=== PATIENT | male | born 1950 | race Caucasian/White ===

== ENCOUNTER 2018-10-14 12:41 | Emergency (ER) | payer MEDICARE ==
[2018-10-14 14:25] VITALS: BP 169/73
[2018-10-14] MEDS ORDERED: ASPIRIN 81 MG TABLET, CHEWABLE PO ONE (15:47)
--- NOTE | 2018-10-14 15:50 | ER Document Report ---
ED Medical Screen (RME) - General Chief Complaint: Other Stated Complaint: PACE MAKER ISSUES Time Seen by Provider: 10/14/18 15:38 Mode of Arrival: Ambulatory Information source: Patient Notes: 67-year-old male presented to ED for pacemaker monitoring bleeding and abnormal. He states he is not having any pain or shortness of breath. He has had heart attacks x2 coronary artery disease high blood pressure cholesterol, 3 neck fusions, 3 back fusions, bypass graft from aorta to the femoral, knee surgery cardiac cath and stents and a pacemaker and smokes a pack a day. 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 I have greeted and performed a rapid initial assessment of this patient. A comprehensive ED assessment and evaluation of the patient, analysis of test results and completion of medical decision making process will be conducted by an additional ED providers. Dictation of this chart was performed using voice recognition software; therefore, there may be some unintended grammatical errors. TRAVEL OUTSIDE OF THE [place] IN LAST 30 DAYS: Yes - Related Data Allergies/Adverse Reactions: No Known Allergies Allergy (Unverified 10/14/18 13:07) Past Medical History - Social History Frequency of alcohol use: None Drug Abuse: None - Past Medical History Cardiac Medical History: Reports: Hx Heart Attack, Hx Hypercholesterolemia, Hx Hypertension Renal/ Medical History: Denies: Hx Peritoneal Dialysis Past Surgical History: Reports: Hx Abdominal Surgery - hernia x2, Hx Cardiac Catheterization - CABG, Hx Cardiac Surgery - stent, pacemaker/defibulator placed, Hx Orthopedic Surgery - cervical fusions x3, back fusions, knee Physical Exam - Vital signs Vitals: Temp Pulse Resp BP Pulse Ox 97.3 F 60 22 H 169/73 H 96 10/14/18 14:23 10/14/18 14:23 10/14/18 14:23 10/14/18 14:23 10/14/18 14:23 Course - Vital Signs Vital signs: Temp Pulse Resp BP Pulse Ox 97.3 F 60 22 H 169/73 H 96 10/14/18 14:23 10/14/18 14:23 10/14/18 14:23 10/14/18 14:23 10/14/18 14:23
--- NOTE | 2018-10-14 16:14 | RADIOLOGY REPORT (SQ) ---
EXAM DESCRIPTION: CHEST 2 VIEWS COMPLETED DATE/TIME: 10/14/2018 4:04 pm REASON FOR STUDY: pace maker montitor abnormal COMPARISON: None. TECHNIQUE: Single frontal radiographic view of the chest acquired. NUMBER OF VIEWS: One view. LIMITATIONS: None. FINDINGS: LUNGS AND PLEURA: No pneumothorax. Basilar interstitial thickening. No consolidation or significant pleural effusion. MEDIASTINUM AND HILAR STRUCTURES: Age-appropriate contour. HEART AND VASCULAR STRUCTURES: Normal size. BONES: No acute findings. HARDWARE: Cardiac defibrillator. OTHER: No other significant finding. IMPRESSION: Basilar interstitial thickening, possible early interstitial edema. TECHNICAL DOCUMENTATION: JOB ID: [id number] 2010 [employer]- All Rights Reserved Reading location - IP/workstation name: [employer]
[2018-10-14 16:49] LABS: APPEARANCE,URINE CLEAR; BILIRUBIN,URINE NEGATIVE (NEGATIVE); COLOR,URINE YELLOW; GLUCOSE, URINE NEGATIVE (NEGATIVE); KETONES,URINE NEGATIVE (NEGATIVE); LEUKOCYTE ESTERASE,URINE NEGATIVE (NEGATIVE); NITRITE,URINE NEGATIVE (NEGATIVE); PROTEIN,URINE 30 mg/dL (NEGATIVE); URINE SPECIFIC GRAVITY 1.015; UROBILINOGEN,URINE NEGATIVE mg/dL (<2.0)
--- NOTE | 2018-10-15 18:30 | EKG REPORT ---
SEVERITY:- ABNORMAL ECG - ATRIAL-PACED RHYTHM LVH WITH IVCD AND SECONDARY REPOL ABNRM BORDERLINE INFERIOR Q WAVES : Confirmed by: Brennan Marc MD 15-Oct-2018 18:30:12
== END 2018-10-14 18:16 | disposition left against medical advice (07) ==
LOC: ER 12:41
DX: Z45.018 Encounter for adjustment and management of other part of cardiac pacemaker (principal); I25.10 Atherosclerotic heart disease of native coronary artery without angina pectoris; I10 Essential (primary) hypertension; I25.2 Old myocardial infarction; F17.200 Nicotine dependence, unspecified, uncomplicated; Z95.1 Presence of aortocoronary bypass graft; Z95.5 Presence of coronary angioplasty implant and graft; Z53.20 Procedure and treatment not carried out because of patient's decision for unspecified reasons
CPT/HCPCS: 93005; 99281; 81001; 71046; 93010; A9270

== ENCOUNTER 2018-10-15 06:53 | Emergency (ER) | payer OTHER, MEDICARE ==
[2018-10-15 09:18] LABS: ABSOLUTE EOSINOPHILS # (AUTO) 0.3 10^3/uL (0.0-0.6); ABSOLUTE LYMPHOCYTES (AUTO) 1.1 10^3/uL (0.5-4.7); ABSOLUTE MONOCYTES (AUTO) 0.5 10^3/uL (0.1-1.4); ABSOLUTE NEUT (AUTO) 4.9 10^3/uL (1.7-8.2); BASOPHILS % (AUTO) 0.5 % (0-2); EOSINOPHILS % (AUTO) 3.8 % (0-6); LYMPHOCYTES % (AUTO) 15.6 % (13-45); MEAN CORPUSCULAR HEMOGLOBIN 33.8 pg (27.0-33.4); MEAN CORPUSCULAR HGB CONC 34.3 g/dL (32.0-36.0); MEAN CORPUSCULAR VOLUME 99 fl (80-97); RED BLOOD COUNT 3.24 10^6/uL (4.35-5.55); RED CELL DISTRIBUTION WIDTH 14.6 % (11.5-14.0); SEGMENTED NEUTROPHILS % (AUTO) 73.1 % (42-78); TOTAL CELLS COUNTED % (AUTO) 100 %; WHITE BLOOD COUNT 6.7 10^3/uL (4.0-10.5)
[2018-10-15 09:39] LABS: ALANINE AMINOTRANSFERASE 25 U/L (21-72); ALBUMIN 4.1 g/dL (3.5-5.0); ALKALINE PHOSPHATASE 98 U/L (38-126); ANION GAP 8 (5-19); ASPARTATE AMINO TRANSFERASE 29 U/L (17-59); BILIRUBIN,DIRECT 0.3 mg/dL (0.0-0.4); BILIRUBIN,TOTAL 0.5 mg/dL (0.2-1.3); BLOOD UREA NITROGEN 28 mg/dL (7-20); CALCIUM 9.2 mg/dL (8.4-10.2); CARBON DIOXIDE 21 mmol/L (22-30); CHLORIDE 113 mmol/L (98-107); GLUCOSE 82 mg/dL (75-110); POTASSIUM 4.9 mmol/L (3.6-5.0); SODIUM 142.2 mmol/L (137-145); TOTAL PROTEIN 7.1 g/dL (6.3-8.2)
[2018-10-15 09:49] LABS: PLATELET COUNT 98 10^3/uL (150-450)
--- NOTE | 2018-10-15 11:16 | ER Document Report ---
ED General - General Chief Complaint: Chest Pain Stated Complaint: PACE MAKER ISSUE Time Seen by Provider: 10/15/18 08:29 Primary Care Provider: [facility] [Provider Group] - Follow up in 3-5 days KWAME HERRERA MD [ACTIVE STAFF] - Follow up in 3-5 days Notes: Patient is a 67-year-old male with history of CHF, CAD and hypertension that presents to the emergency department for chief complaint of possible pacemaker malfunction. Patient states that he places pacemaker on the monitor, at home and he states that it started blinking and told him to go see a doctor. He had his pacemaker placed in 2017, it is an AICD as well, it was performed in [place]. It is a [employer]. He denies having any chest pain, shortness of breath, difficulty breathing, nausea, vomiting, diaphoresis. He denies having any lightheadedness, dizziness or passing out episodes. He also denies any recent fevers, chills, night sweats, cough, abdominal pain, dysuria or hematuria. No other complaints at this time. Otherwise feels well. Past Medical History: CHF, CAD, hypertension Past Surgical History: AICD, PCI with stenting Social History: Admits to smoking cigarettes, denies ETOH, or drug use. Family History: Reviewed and noncontributory for presenting illness Allergies: Reviewed, see documented allergy list. REVIEW OF SYSTEMS: Other than noted above, the 12 point review of systems was reviewed with the patient and were negative, all pertinent findings are included in the HPI. PHYSICAL EXAMINATION: Vital signs reviewed, nursing noted reviewed. GENERAL: Well-appearing, well-nourished and in no acute distress. HEAD: Atraumatic, normocephalic. EYES: Eyes appear normal, extraocular movements intact, sclera anicteric, conjunctiva are normal. ENT: nares patent, oropharynx clear without exudates. Moist mucous membranes. NECK: Normal range of motion, supple without lymphadenopathy LUNGS: Breath sounds clear to auscultation bilaterally and equal. No wheezes rales or rhonchi. HEART: Regular rate and rhythm without murmurs ABDOMEN: Soft, nontender, normoactive bowel sounds. No rebound, guarding, or rigidity. No masses appreciated. EXTREMITIES: Nontender, good range of motion, no pitting or edema. NEUROLOGICAL: No focal neurological deficits. Moves all extremities spontaneo usly Motor and sensory grossly intact on exam. PSYCH: Normal mood, normal affect. SKIN: Warm, Dry, normal turgor, no rashes or lesions noted on exposed skin TRAVEL OUTSIDE OF THE [place] IN LAST 30 DAYS: Yes - Related Data Allergies/Adverse Reactions: No Known Allergies Allergy (Unverified 10/14/18 13:07) Past Medical History - Social History Smoking Status: Current Every Day Smoker Family History: Reviewed & Not Pertinent Patient has suicidal ideation: No Patient has homicidal ideation: No - Past Medical History Cardiac Medical History: Reports: Hx Heart Attack, Hx Hypercholesterolemia, Hx Hypertension Renal/ Medical History: Denies: Hx Peritoneal Dialysis Past Surgical History: Reports: Hx Abdominal Surgery - hernia x2, Hx Cardiac Catheterization - CABG, Hx Cardiac Surgery - stent, pacemaker/defibulator placed, Hx Orthopedic Surgery - cervical fusions x3, back fusions, knee Physical Exam - Vital signs Vitals: Temp Pulse Resp BP Pulse Ox 97.5 F 59 L 16 162/77 H 98 10/15/18 07:26 10/15/18 07:26 10/15/18 07:26 10/15/18 07:26 10/15/18 07:26 Course - Re-evaluation Re-evalutation: Patient seen and examined vital signs reviewed. Laboratory data ordered as appropriate for the patient's presenting symptoms and complaint, with consideration of any critical or life threatening conditions that may be associated with their obtained history and exam as noted above. Results were reviewed when available and demonstrated mild anemia, and creatinine of 1.6, patient states he does have a mild degree of chronic kidney disease and it sounds like this is around his baseline. His troponin was negative, EKG did not demonstrate acute ischemic pattern, his pacemaker interrogation was performed, and reviewed with the [employer] quality systems technician, and there is no concerning findings on his interrogation. I discussed these res ults with the patient, and advise following up with a materials technician in the [facility], and if he developed any concerning symptoms to return to the emergency department. The patient was re-evaluated and was stable, asymptomatic Evaluation was most consistent with pacemaker interrogation and possible complication Results were discussed with the patient at this point, after careful consideration I feel that that patient can be discharged from the emergency department, the patient was educated treatments and reasons to return to the emergency department based on their presumed diagnosis as noted above, they were advised to followup with a primary care physician in 2-3 days. Patient was agreeable to plan of care. *Note is created using voice recognition software and may contain spelling, syntax or grammatical errors. Laboratory 10/15/18 10/15/18 10/15/18 09:00 09:00 09:00 WBC 6.7 RBC 3.24 L Hgb 11.0 L Hct 32.0 L MCV 99 H MCH 33.8 H MCHC 34.3 RDW 14.6 H Plt Count 98 L Seg Neutrophils % 73.1 Lymphocytes % 15.6 Monocytes % 7.0 Eosinophils % 3.8 Basophils % 0.5 Absolute Neutrophils 4.9 Absolute Lymphocytes 1.1 Absolute Monocytes 0.5 Absolute Eosinophils 0.3 Absolute Basophils 0.0 Sodium 142.2 Potassium 4.9 Chloride 113 H Carbon Dioxide 21 L Anion Gap 8 BUN 28 H Creatinine 1.63 H Est GFR ( Amer) 51 L Est GFR (Non-Af Amer) 43 L Glucose 82 Calcium 9.2 Total Bilirubin 0.5 Direct Bilirubin 0.3 Neonat Total Bilirubin Not Reportable Neonat Direct Bilirubin Not Reportable Neonat Indirect Bili Not Reportable AST 29 ALT 25 Alkaline Phosphatase 98 Troponin I 0.017 Total Protein 7.1 Albumin 4.1 - Vital Signs Vital signs: Temp Pulse Resp BP Pulse Ox 97.8 F 59 L 22 H 141/68 H 94 10/15/18 11:28 10/15/18 07:26 10/15/18 11:01 10/15/18 11:01 10/15/18 11:01 - Laboratory Result Diagrams: 10/15/18 09:00 10/15/18 09:00 Laboratory results interpreted by me: 10/15/18 10/15/18 09:00 09:00 RBC 3.24 L Hgb 11.0 L Hct 32.0 L MCV 99 H MCH 33.8 H RDW 14.6 H Plt Count 98 L Chloride 113 H Carbon Dioxide 21 L BUN 28 H Creatinine 1.63 H Est GFR ( Amer) 51 L Est GFR (Non-Af Amer) 43 L - EKG Interpretation by Me Additional EKG results interpreted by me: EKG demonstrates atrial paced rhythm with a ventricular rate of 60 bpm, normal axis, QTC 432 ms, T wave inversion noted in leads II, III and aVF, compared with prior EKG without significant change. Discharge - Discharge Clinical Impression: Pacemaker complications Qualifiers: Encounter type: initial encounter Qualified Code(s): T82.9XXA - Unspecified complication of cardiac and vascular prosthetic device, implant and graft, initial encounter Condition: Stable Disposition: HOME, SELF-CARE Instructions: Pacemaker Evaluation ([facility]) Additional Instructions: Your pacemaker interrogation today, appeared well, your blood work seem to be stable. Please follow-up with a materials technician in the area [facility] well as [facility] If you develop worsening symptoms, significant shortness of breath, chest pain, nausea or vomiting. Do not hesitate to return to the emergency department. Otherwise please continue taking your previously prescribed medications as directed. Referrals: KWAME HERRERA MD [ACTIVE STAFF] - Follow up in 3-5 days [facility] [Provider Group] - Follow up in 3-5 days
[2018-10-15 11:22] VITALS: BP 141/68
--- NOTE | 2018-10-15 18:29 | EKG REPORT ---
SEVERITY:- ABNORMAL ECG - ATRIAL-PACED RHYTHM NONSPECIFIC INTRAVENTRICULAR CONDUCTION DELAY LEFT VENTRICULAR HYPERTROPHY PROBABLE INFERIOR INFARCT, AGE INDETERMINATE : Confirmed by: Brennan Marc MD 15-Oct-2018 18:29:31
== END 2018-10-15 11:28 | disposition home or self-care (01) ==
LOC: ER 06:53
DX: T82.9XXA Unspecified complication of cardiac and vascular prosthetic device, implant and graft, initial encounter (principal); Y71.8 Miscellaneous cardiovascular devices associated with adverse incidents, not elsewhere classified; I12.9 Hypertensive chronic kidney disease with stage 1 through stage 4 chronic kidney disease, or unspecified chronic kidney disease; N18.9 Chronic kidney disease, unspecified; D63.1 Anemia in chronic kidney disease; I25.10 Atherosclerotic heart disease of native coronary artery without angina pectoris; I25.2 Old myocardial infarction; Z95.810 Presence of automatic (implantable) cardiac defibrillator; F17.200 Nicotine dependence, unspecified, uncomplicated; Z95.1 Presence of aortocoronary bypass graft
CPT/HCPCS: 36415; 80053; 84484; 85025; 93005; 93010; 99284

== ENCOUNTER → 2019-02-13 | Outpatient (CLI) | payer OTHER ==
--- NOTE | 2019-02-15 11:32 | XCELERA REPORT ---
[address] [address] Lower Extremity Arterial Evaluation Name: LORIE OLIVIA Age: 68 yrs Gender: Male : 1950 Patient Status: Outpatient Patient Location: [facility] Study Date: 02/13/2019 01:08 PM Procedure: A color flow and duplex scan of the lower extremity arteries was performed bilaterally with velocity and waveform anaylsis. Reason For Study: PVD Ordering Physician: PONCHO BARTHOLOMEW Performed By: Addison Kim Measurements and Calculations Right Left MEDICAL UNIT SECRETARY PSV 87.1 86.7 cm/sec Prox PFA PSV -123.6 -118.8cm/sec Prox SFA PSV 34.4 cm/sec Mid SFA PSV -312.5 cm/sec Dist SFA PSV -104.2 -69.8 cm/sec Prox Pop A PSV 62.9 77.7 cm/sec Dist KOKO PSV 30.4 47.5 cm/sec Dist SENIOR BIOSTATISTICIAN PSV 36.2 cm/sec Mid Cynthia A PSV 31.0 cm/sec Dist Cynthia A 24.6 cm/sec PSV Yung Pedis PSV 54.1 19.8 cm/sec Right Side Arterial Evaluation A patent graft or stent is noted in the Distal Iliac, to Proximal Femoral artery. Normal velocity and triphasic waveforms noted from the Common Femoral artery to the Popliteal. High velocity in the mid Femoral artery. Biphasic with low velocity in the Posterior tibial artery. No flow in the Peroneal artery. Ankle Brachial index not ordered. Left Side Arterial Evaluation A patent graft or stent is noted in the Distal Iliac, to Proximal Femoral artery. Normal velocity and triphasic waveforms noted from the Common Femoral artery to the Infrageniculate arteries. Occluded Femoral artery, appears to be well collateralized. Biphasic with low velocity in the Dorsalis Pedis artery. Ankle Brachial index not ordered. Interpretation Summary Moderate hemodynamically significant lesions in the left lower extremity only, on duplex imaging, at rest. Duplex findings of patent, bilateral Femoral grafts. Significant sequential disease on the right. Well compensated occlusion of the Femoral artery, slight distal changes on the left, involving the Dorsalis Pedis only. : PONCHO BARTHOLOMEW > Ras Pyle
== END ==
LOC: SP 12:22
PROVIDERS: ATTEND Specialist
DX: I73.9 Peripheral vascular disease, unspecified (principal)
CPT/HCPCS: 93925

== ENCOUNTER 2019-03-05 13:03 | Emergency (ER) | payer OTHER, MEDICARE ==
[2019-03-05 13:26] VITALS: BP 124/69
--- NOTE | 2019-03-05 13:48 | ER Document Report ---
ED Medical Screen (RME) - General Stated Complaint: CHEST PAIN Time Seen by Provider: 03/05/19 13:46 Primary Care Provider: PONCHO BARTHOLOMEW MD [Primary Care Provider] - Follow up as needed TRAVEL OUTSIDE OF THE [place] IN LAST 30 DAYS: No - HPI Notes: 03/05/19 13:46 Patient is a 68-year-old male with a history of coronary artery disease, congestive heart failure, hypertension, AICD in place who presents complaining of left-sided chest pain near where the implant is. Pain does not radiate. He is able to eat and drink without difficulty. He is not aware of anything that makes the pain worse. Patient states that he has been having trouble with his home monitor for his pacer and it is not functioning correctly him believes he may need another interrogation done on his [employer] unit. Denies JACKSON, fever, neck pain, URI, shortness of breath, n/v/d, Abd pain, dysuria, back pain, or rash. I have treated and performed a rapid initial assessment of this patient. A comprehensive ED assessment and evaluation of the patient, analysis of test results and completion of medical decision making process will be conducted by additional ED providers. PHYSICAL EXAMINATION: GENERAL: Well-appearing, well-nourished and in no acute distress. A&Ox4. Answers questions appropriately. LUNGS: Breath sounds clear to auscultation bilaterally and equal. No wheezes rales or rhonchi. HEART: Regular rate and rhythm without murmurs, rubs, gallops. Extremities: No cyanosis, clubbing, or edema b/l. Brock negative bilaterally. No lower extremity asymmetry. NEUROLOGICAL: Normal speech, normal gait. PSYCH: Normal mood, normal affect. - Related Data Allergies/Adverse Reactions: No Known Allergies Allergy (Unverified 10/14/18 13:07) Past Medical History - Past Medical History Cardiac Medical History: Reports: Hx Heart Attack, Hx Hypercholesterolemia, Hx Hypertension Renal/ Medical History: Denies: Hx Peritoneal Dialysis Past Surgical History: Reports: Hx Abdominal Surgery - hernia x2, Hx Cardiac Catheterization - CABG, Hx Cardiac Surgery - stent, pacemaker/defibulator placed, Hx Orthopedic Surgery - cervical fusions x3, back fusions, knee Physical Exam - Vital signs Vitals: Temp Pulse Resp BP Pulse Ox 97.9 F 62 20 124/69 92 03/05/19 13:24 03/05/19 13:24 03/05/19 13:24 03/05/19 13:24 03/05/19 13:24 Course - Vital Signs Vital signs: Temp Pulse Resp BP Pulse Ox 97.9 F 62 20 124/69 92 03/05/19 13:24 03/05/19 13:24 03/05/19 13:24 03/05/19 13:24 03/05/19 13:24 Doctor's Discharge - Discharge Referrals: PONCHO BARTHOLOMEW MD [Primary Care Provider] - Follow up as needed
[2019-03-05 14:36] LABS: ABSOLUTE EOSINOPHILS # (AUTO) 0.3 10^3/uL (0.0-0.6); ABSOLUTE LYMPHOCYTES (AUTO) 0.9 10^3/uL (0.5-4.7); ABSOLUTE MONOCYTES (AUTO) 0.5 10^3/uL (0.1-1.4); ABSOLUTE NEUT (AUTO) 3.9 10^3/uL (1.7-8.2); BASOPHILS % (AUTO) 0.5 % (0-2); EOSINOPHILS % (AUTO) 5.1 % (0-6); HEMATOCRIT 25.9 % (37.9-51.0); HEMOGLOBIN 8.9 g/dL (13.5-17.0); LYMPHOCYTES % (AUTO) 16.2 % (13-45); MEAN CORPUSCULAR HGB CONC 34.3 g/dL (32.0-36.0); MEAN CORPUSCULAR VOLUME 102 fl (80-97); MONOCYTES % (AUTO) 9.6 % (3-13); PLATELET COUNT 108 10^3/uL (150-450); RED BLOOD COUNT 2.53 10^6/uL (4.35-5.55); RED CELL DISTRIBUTION WIDTH 15.9 % (11.5-14.0); SEGMENTED NEUTROPHILS % (AUTO) 68.6 % (42-78); TOTAL CELLS COUNTED % (AUTO) 100 %; WHITE BLOOD COUNT 5.6 10^3/uL (4.0-10.5)
--- NOTE | 2019-03-05 14:54 | RADIOLOGY REPORT (SQ) ---
EXAM DESCRIPTION: CHEST 2 VIEWS COMPLETED DATE/TIME: 03/05/2019 2:37 pm REASON FOR STUDY: cp COMPARISON: 10/14/2018 EXAM PARAMETERS: NUMBER OF VIEWS: two views TECHNIQUE: Digital Frontal and Lateral radiographic views of the chest acquired. RADIATION DOSE: NA LIMITATIONS: none FINDINGS: LUNGS AND PLEURA: Findings of COPD suggested. Mild prominence of the interstitial markin gs in the lungs may be on a chronic basis. No acute pulmonary consolidation. Minimal to very sligh t blunting of the costophrenic angles suggest effusions. MEDIASTINUM AND HILAR STRUCTURES: No masses or contour abnormalities. HEART AND VASCULAR STRUCTURES: Stable appearance. HARDWARE: Cardiac pacemaker, stable finding. OTHER: No other significant finding. IMPRESSION: 1. Findings of COPD, unchanged. Chronic mild interstitial changes in the lungs. 2. Minimal to very slight blunting of the costophrenic angles suggest effusions. TECHNICAL DOCUMENTATION: JOB ID: [id number] [employer]- All Rights Reserved Reading location - IP/workstation name: [email or web address]
[2019-03-05 14:57] LABS: ALBUMIN 3.8 g/dL (3.5-5.0); ALKALINE PHOSPHATASE 102 U/L (38-126); ANION GAP 7 (5-19); ASPARTATE AMINO TRANSFERASE 25 U/L (17-59); BILIRUBIN,DIRECT 0.3 mg/dL (0.0-0.4); BILIRUBIN,TOTAL 0.6 mg/dL (0.2-1.3); BLOOD UREA NITROGEN 24 mg/dL (7-20); CALCIUM 9.2 mg/dL (8.4-10.2); CARBON DIOXIDE 21 mmol/L (22-30); CHLORIDE 111 mmol/L (98-107); GLUCOSE 96 mg/dL (75-110); POTASSIUM 5.5 mmol/L (3.6-5.0); TOTAL PROTEIN 6.8 g/dL (6.3-8.2)
--- NOTE | 2019-03-06 00:02 | EKG REPORT ---
SEVERITY:- ABNORMAL ECG - ATRIAL-PACED RHYTHM NONSPECIFIC INTRAVENTRICULAR CONDUCTION DELAY PROBABLE LEFT VENTRICULAR HYPERTROPHY BORDERLINE INFERIOR Q WAVES : Confirmed by: Alicia Brizuela MD 06-Mar-2019 00:02:45
== END 2019-03-05 19:17 | disposition left against medical advice (07) ==
LOC: ER 13:03
DX: R07.9 Chest pain, unspecified (principal); I25.10 Atherosclerotic heart disease of native coronary artery without angina pectoris; I10 Essential (primary) hypertension; I25.2 Old myocardial infarction; Z95.810 Presence of automatic (implantable) cardiac defibrillator; Z95.5 Presence of coronary angioplasty implant and graft; Z53.20 Procedure and treatment not carried out because of patient's decision for unspecified reasons
CPT/HCPCS: 36415; 71046; 80053; 84484; 85025; 93005; 93010; 99281

== ENCOUNTER 2019-09-18 13:03 | Emergency (ER) | payer OTHER, MEDICARE ==
--- NOTE | 2019-09-18 13:50 | ER Document Report ---
ED Medical Screen (RME) - General Chief Complaint: Leg Swelling Stated Complaint: FEET SWELLING Time Seen by Provider: 09/18/19 13:39 Primary Care Provider: CHLOE ROTHMAN [Primary Care Provider] - Follow up as needed Notes: Patient is a 68-year-old male who presents to the emergency department with a chief complaint of bilateral lower extremity swelling. Patient also states that he has had discoloration to his left lower leg. 3 weeks ago he had vascular surgery on the left leg. Over the past 5 days he has had increased swelling to bilateral lower extremities and has had some associated shortness of breath. Exam: 3+ pitting edema to right lower extremity. 2+ pitting edema to left lower extremity. Discoloration noted to left lower extremity. I have greeted and performed a rapid initial assessment of this patient. A comprehensive ED assessment and evaluation of the patient, analysis of test results and completion of medical decision making process will be conducted by an additional ED providers. TRAVEL OUTSIDE OF THE [place] IN LAST 30 DAYS: No - Related Data Allergies/Adverse Reactions: No Known Allergies Allergy (Verified 09/18/19 13:47) Past Medical History - Social History Chew tobacco use (# tins/day): No Frequency of alcohol use: None Drug Abuse: None - Past Medical History Cardiac Medical History: Reports: Hx Heart Attack, Hx Hypercholesterolemia, Hx Hypertension Renal/ Medical History: Denies: Hx Peritoneal Dialysis Past Surgical History: Reports: Hx Abdominal Surgery - hernia x2, Hx Cardiac Catheterization - CABG, Hx Cardiac Surgery - stent, pacemaker/defibulator placed, Hx Orthopedic Surgery - cervical fusions x3, back fusions, knee Physical Exam - Vital signs Vitals: Temp Pulse Resp BP Pulse Ox 97.5 F 72 16 145/85 H 95 09/18/19 13:14 09/18/19 13:14 09/18/19 13:14 09/18/19 13:14 09/18/19 13:14 Course - Vital Signs Vital signs: Temp Pulse Resp BP Pulse Ox 97.5 F 72 16 145/85 H 95 09/18/19 13:41 09/18/19 13:14 09/18/19 13:14 09/18/19 13:14 09/18/19 13:14 Doctor's Discharge - Discharge Referrals: [facility] [Primary Care Provider] - Follow up as needed
--- NOTE | 2019-09-18 14:27 | RADIOLOGY REPORT (SQ) ---
EXAM DESCRIPTION: CHEST SINGLE VIEW IMAGES COMPLETED DATE/TIME: 09/18/2019 2:13 pm REASON FOR STUDY: shortness of breath COMPARISON: 03/05/2019 NUMBER OF VIEWS: One view. TECHNIQUE: Single frontal radiographic image of the chest acquired. LIMITATIONS: None. FINDINGS: LUNGS AND PLEURA: COPD. Small effusions. MEDIASTINUM AND HEART: Stable heart size and mediastinal structures. SUPPORT DEVICES: Appropriate location without change. BONY STRUCTURES: No acute findings. HARDWARE: None. OTHER: No other significant finding. IMPRESSION: COPD. Small effusions. Reading location - IP/workstation name: [email or web address]
[2019-09-18 14:35] LABS: ABSOLUTE LYMPHOCYTES (AUTO) 0.3 10^3/uL (0.5-4.7); ABSOLUTE MONOCYTES (AUTO) 0.1 10^3/uL (0.1-1.4); ABSOLUTE NEUT (AUTO) 3.6 10^3/uL (1.7-8.2); BASOPHILS % (AUTO) 0.7 % (0-2); EOSINOPHILS % (AUTO) 0.1 % (0-6); HEMATOCRIT 26.3 % (37.9-51.0); HEMOGLOBIN 8.6 g/dL (13.5-17.0); LYMPHOCYTES % (AUTO) 6.4 % (13-45); MEAN CORPUSCULAR HEMOGLOBIN 32.3 pg (27.0-33.4); MEAN CORPUSCULAR HGB CONC 32.7 g/dL (32.0-36.0); MEAN CORPUSCULAR VOLUME 99 fl (80-97); PLATELET COUNT 160 10^3/uL (150-450); RED BLOOD COUNT 2.67 10^6/uL (4.35-5.55); RED CELL DISTRIBUTION WIDTH 21.3 % (11.5-14.0); SEGMENTED NEUTROPHILS % (AUTO) 90.8 % (42-78); TOTAL CELLS COUNTED % (AUTO) 100 %
[2019-09-18 15:00] LABS: ALBUMIN 2.8 g/dL (3.5-5.0); ALKALINE PHOSPHATASE 194 U/L (38-126); ANION GAP 6 (5-19); ASPARTATE AMINO TRANSFERASE 41 U/L (17-59); BILIRUBIN,DIRECT 0.2 mg/dL (0.0-0.4); BLOOD UREA NITROGEN 28 mg/dL (7-20); CALCIUM 8.8 mg/dL (8.4-10.2); CARBON DIOXIDE 24 mmol/L (22-30); CHLORIDE 105 mmol/L (98-107); GLUCOSE 163 mg/dL (75-110); POTASSIUM 4.2 mmol/L (3.6-5.0); TOTAL PROTEIN 5.8 g/dL (6.3-8.2)
--- NOTE | 2019-09-18 15:37 | ER Document Report ---
Entered by ALLAN HAND SCRIBE 09/18/19 [id number] Acting as scribe for:SIDDHARTHA LYNCH MD ED Extremity Problem, Lower - General Chief Complaint: Leg Swelling Stated Complaint: FEET SWELLING Time Seen by Provider: 09/18/19 13:39 Primary Care Provider: LORNA,CHLOE [Primary Care Provider] - Follow up as needed Mode of Arrival: Ambulatory Information source: Patient Notes: This 68 year old male patient presents to the emergency department today with complaints of leg swelling x5 days with associated shortness of breath. Patient recently had a left lower extremity arterial bypass for poor blood flow three weeks ago but he does not know what sort of bypass he had. Patient denies any cough or fevers. TRAVEL OUTSIDE OF THE [place] IN LAST 30 DAYS: No - Related Data Allergies/Adverse Reactions: No Known Allergies Allergy (Verified 09/18/19 13:47) Past Medical History - General Information source: Patient - Social History Smoking Status: Current Every Day Smoker Cigarette use (# per day): Yes Chew tobacco use (# tins/day): No Frequency of alcohol use: None Drug Abuse: None Lives with: Family Family History: Reviewed & Not Pertinent Patient has homicidal ideation: No - Past Medical History Cardiac Medical History: Reports: Hx Heart Attack, Hx Hypercholesterolemia, Hx Hypertension Past Surgical History: Reports: Hx Coronary Artery Bypass Graft, Hx Herniorrhaphy - bilateral inguinal hernia repair, Hx Orthopedic Surgery, Hx Pacemaker Review of Systems - Review of Systems Constitutional: No symptoms reported EENT: No symptoms reported Cardiovascular: No symptoms reported Respiratory: See HPI, Short of breath Gastrointestinal: No symptoms reported Genitourinary: No symptoms reported Male Genitourinary: No symptoms reported Musculoskeletal: See HPI, Leg swelling, Ankle swelling Skin: No symptoms reported Hematologic/Lymphatic: No symptoms reported Neurological/Psychological: No symptoms reported -: Yes All other systems reviewed and negative Physical Exam - Vital signs Vitals: Temp Pulse Resp BP Pulse Ox 97.5 F 72 16 145/85 H 95 09/18/19 13:14 09/18/19 13:14 09/18/19 13:14 09/18/19 13:14 09/18/19 13:14 - Notes Notes: Physical Exam: General: Alert, appears well. HEENT: Normocephalic. Atraumatic. PERRL. Extraocular movements intact. Oropharynx clear. Neck: Supple. Non-tender. Respiratory: No respiratory distress. Rhonchi with crackles bilaterally. Cardiovascular: Regular rate and rhythm. Abdominal: Normal Inspection. Non-tender. No distension. Normal Bowel Sounds. Back: No gross abnormalities. Extremities: Moves all four extremities. Upper extremities: Normal inspection. Normal ROM. Lower extremities: Right lower extremity has 2+ soft, pitting edema which is non-tender. Left lower extremity is atrophied, the skin is dry, the left calf is quite firm to palpation which the patient states is chronic. Left groin has well healed incisions to left groin and left medial thigh down to the level of the knee.There is left knee swelling which appears to be osteoarthritic changes. Neurological: Normal cognition. AAOx4. Normal speech. Psychological: Normal affect. Normal Mood. Skin: Warm. Dry. Normal color. Course - Re-evaluation Re-evalutation: 09/18/19 17:22 The patient has short-term memory deficits. When I first saw him I talked to him about a print out showing medications he received on October 17, 2018 from his primary care provider, it was a 10-day supply. He confirmed that he got those and that was to hold him over until his medicines came from the [place]. He also confirmed that digoxin or Lanoxin was 1 of his medications. When I went back a few hours later to talk with him he had no recollection of that discussion, and seemed to have no idea about Lanoxin or digoxin. He does not carry a list of his medications with him. - Vital Signs Vital signs: Temp Pulse Resp BP Pulse Ox 97.5 F 72 16 145/85 H 95 09/18/19 13:41 09/18/19 13:14 09/18/19 13:14 09/18/19 13:14 09/18/19 13:14 - Laboratory Result Diagrams: 09/18/19 14:04 09/18/19 14:04 Laboratory results interpreted by me: 09/18/19 09/18/19 09/18/19 14:04 14:04 14:04 RBC 2.67 L Hgb 8.6 L Hct 26.3 L MCV 99 H RDW 21.3 H Lymph % (Auto) 6.4 L [place] % (Auto) 2.0 L Absolute Lymphs (auto) 0.3 L Seg Neutrophils % 90.8 H Sodium 134.6 L BUN 28 H Creatinine 1.53 H Est GFR ( Amer) 55 L Est GFR (MDRD) Non-Af 46 L Glucose 163 H Alkaline Phosphatase 194 H NT-Pro-B Natriuret Pep 29832 H Total Protein 5.8 L Albumin 2.8 L Digoxin 09/18/19 14:04 RBC Hgb Hct MCV RDW Lymph % (Auto) [place] % (Auto) Absolute Lymphs (auto) Seg Neutrophils % Sodium BUN Creatinine Est GFR ( Amer) Est GFR (MDRD) Non-Af Glucose Alkaline Phosphatase NT-Pro-B Natriuret Pep Total Protein Albumin Digoxin < 0.40 L - Diagnostic Test Radiology reviewed: Image reviewed, Reports reviewed - Chest x-ray shows COPD with small effusions. Venous Doppler of the right lower extremity does not show clot. Arterial Doppler of the left lower extremity shows blood flow through a saphenous vein femoral bypass graft with mid femoral artery clot. Discharge - Discharge Clinical Impression: Lower extremity edema, Undetectable digoxin level Condition: Stable Disposition: HOME, SELF-CARE Additional Instructions: Edema, Peripheral You have swelling in your legs. This is called peripheral edema. It can be caused by "leaky capillaries," inflammation, disease of the leg veins, or excess salt and water in your body. Edema may be a sign of heart, kidney, or liver disease. A medical evaluation can determine if there is a serious underlying cause for your edema. Avoid prolonged standing. If you must sit for a long time, occasionally get up and walk around or elevate your legs. Support stockings can be helpful in limiting swelling. Often diuretic or water pills are used to remove excess salt and water from your body. Call the doctor or return if you develop increased swelling, pain, or redness, shortness of breath, chest pain, or any other significant change. Continue your regular medications. Elevate your leg above your heart as much as possible. Take copies of the lab work and x-rays to see your doctor tomorrow. Ask your doctor to help you make a card listing all of your regular medications and keep it with you all the time. RETURN TO THE EMERGENCY ROOM IF ANY NEW OR WORSENING SYMPTOMS. Referrals: [facility] [Primary [facility] Provider] - Follow up as needed I personally performed the services described in the documentation, reviewed and edited the documentation which was dictated to the scribe in my presence, and it accurately records my words and actions.
[2019-09-18] MEDS ORDERED: DIGOXIN INJ 0.5 MG/2 ML AMPULE IV ONE (15:49)
[2019-09-18] MEDS ORDERED: FUROSEMIDE INJ/PF 20 MG/2 ML SDV IV ONE (15:51)
--- NOTE | 2019-09-18 16:56 | RADIOLOGY REPORT (SQ) ---
EXAM DESCRIPTION: VENOUS UNILATERAL LOWER IMAGES COMPLETED DATE/TIME: 09/18/2019 4:47 pm REASON FOR STUDY: RLE swelling COMPARISON: None. TECHNIQUE: Dynamic and static reyna scale and color images acquired of the right leg venous system. S elected spectral images acquired with additional compression and augmentation maneuvers. The contrala teral common femoral vein and saphenofemoral junction were also imaged. Images stored on PACS. LIMITATIONS: None. FINDINGS: COMMON FEMORAL: Normal phasicity, compression and augmentation. No visualized echogenic ma terial on reyna scale. No defects on color images. FEMORAL: Normal compression and augmentation. No visualized echogenic material on reyna scale. No defe cts on color images. POPLITEAL: Normal compression, augmentation. No visualized echogenic material on reyna scale. No defec ts on color images. CALF VESSELS: Normal compression, augmentation. No visualized echogenic material on reyna scale. No de fects on color images. GSV and SSV: Normal compression, augmentation. No visualized echogenic material on reyna scale. No def ects on color images. ANY DEEP VENOUS INSUFFICIENCY: No. ANY EVIDENCE OF POPLITEAL CYST: No. OTHER: No other significant finding. CONTRALATERAL COMMON FEMORAL VEIN AND SAPHENOFEMORAL JUNCTION: Normal phasicity, compression and augmentation. No visualized echogenic material on reyna scale. No de fects on color images. IMPRESSION: NO EVIDENCE DVT OR SVT IN THE RIGHT LEG. TECHNICAL DOCUMENTATION: JOB ID: [id number] 2010 [employer]- All Rights Reserved Reading location - IP/workstation name: [email or web address]
--- NOTE | 2019-09-18 18:01 | RADIOLOGY REPORT (SQ) ---
EXAM DESCRIPTION: ARTERIAL LOWER EXTREM UNILAT IMAGES COMPLETED DATE/TIME: 09/18/2019 5:08 pm REASON FOR STUDY: LLE discoloration; hx of sx COMPARISON: None. TECHNIQUE: Dynamic and static reyna scale and color images acquired of the lower extremity arteries. Additional selected spectral images recorded. LIMITATIONS: None. FINDINGS: The patient has a history of occlusion of the superficial femoral artery and is status pos t creation of an in-situ GSV bypass 5 days ago. The bypass is patent ; the PSV at the proximal anast omosis of the bypass is 160 cm/s. The proximal to mid SFA down to the distal anastomosis of the hind site of bypass graft is occluded with extensive atheromatous calcifications. The popliteal artery i s patent with biphasic spectral waveforms then and PSV of 63 cm/s. The distal posterior tibial arter y, distal anterior tibial artery and the dorsalis pedis are patent with monophasic spectral waveforms . IMPRESSION: Patent left-sided in-situ GSV bypass. TECHNICAL DOCUMENTATION: JOB ID: [id number] 2010 [employer]- All Rights Reserved Reading location - IP/workstation name: [email or web address]
[2019-09-18 18:12] VITALS: BP 144/94
--- NOTE | 2019-09-18 18:38 | EKG REPORT ---
SEVERITY:- ABNORMAL ECG - SINUS RHYTHM PROBABLE LEFT ATRIAL ABNORMALITY NONSPECIFIC INTRAVENTRICULAR CONDUCTION DELAY LEFT VENTRICULAR HYPERTROPHY : Confirmed by: Brennan Marc MD 18-Sep-2019 18:37:46
== END 2019-09-18 18:19 | disposition home or self-care (01) ==
LOC: ER 13:03
DX: R60.0 Localized edema (principal); I74.3 Embolism and thrombosis of arteries of the lower extremities; J44.9 Chronic obstructive pulmonary disease, unspecified; J90 Pleural effusion, not elsewhere classified; M25.462 Effusion, left knee; I10 Essential (primary) hypertension; Z98.62 Peripheral vascular angioplasty status; F17.210 Nicotine dependence, cigarettes, uncomplicated; Z95.1 Presence of aortocoronary bypass graft; Z95.0 Presence of cardiac pacemaker
CPT/HCPCS: 36415; 71045; 80053; 80162; 83880; 85025; 93005; 93010; 93926; 93971; 99284

== ENCOUNTER 2019-10-21 16:10 | Inpatient (IN) | payer OTHER, MEDICARE ==
[2019-10-21 17:08] LABS: ALBUMIN 3.2 g/dL (3.5-5.0); ALKALINE PHOSPHATASE 115 U/L (38-126); ANION GAP 5 (5-19); ASPARTATE AMINO TRANSFERASE 36 U/L (17-59); BILIRUBIN,DIRECT 0.2 mg/dL (0.0-0.4); BILIRUBIN,TOTAL 1.4 mg/dL (0.2-1.3); BLOOD UREA NITROGEN 32 mg/dL (7-20); CALCIUM 9.1 mg/dL (8.4-10.2); CARBON DIOXIDE 24 mmol/L (22-30); CHLORIDE 110 mmol/L (98-107); GLUCOSE 122 mg/dL (75-110); POTASSIUM 4.3 mmol/L (3.6-5.0); TOTAL PROTEIN 6.1 g/dL (6.3-8.2)
--- NOTE | 2019-10-21 17:15 | RADIOLOGY REPORT (SQ) ---
EXAM DESCRIPTION: CHEST SINGLE VIEW IMAGES COMPLETED DATE/TIME: 10/21/2019 4:45 pm REASON FOR STUDY: sob COMPARISON: 09/18/2019 EXAM PARAMETERS: NUMBER OF VIEWS: One view. TECHNIQUE: Single frontal radiographic view of the chest acquired. RADIATION DOSE: NA LIMITATIONS: None. FINDINGS: LUNGS AND PLEURA: There appear to be chronic interstitial changes in the lung basis. MEDIASTINUM AND HILAR STRUCTURES: No masses. Contour normal. HEART AND VASCULAR STRUCTURES: Cardiomegaly. No taylor pulmonary edema. BONES: No acute findings. HARDWARE: Pacemaker/defibrillator. OTHER: No other significant finding. IMPRESSION: Cardiomegaly without pulmonary edema. Chronic lung changes. TECHNICAL DOCUMENTATION: JOB ID: [id number] 2010 [employer]- All Rights Reserved Reading location - IP/workstation name: [email or web address]
[2019-10-21 17:32] LABS: VENOUS BLOOD HCO3 25.6 mmol/L (20-32); VENOUS BLOOD PCO2 45.6 mmHg (35-63); VENOUS BLOOD PH 7.37 (7.30-7.42)
[2019-10-21 17:50] LABS: TROPONIN I 0.037 ng/mL
--- NOTE | 2019-10-21 18:03 | RADIOLOGY REPORT (SQ) ---
EXAM DESCRIPTION: CT CHEST WITHOUT IMAGES COMPLETED DATE/TIME: 10/21/2019 5:45 pm REASON FOR STUDY: cough/hypoxia COMPARISON: None. TECHNIQUE: CT scan performed of the chest without intravenous contrast. Images reviewed with lung, soft tissue and bone windows. Reconstructed coronal and sagittal MPR images reviewed. All images st ored on PACS. All CT scanners at this facility use dose modulation, iterative reconstruction, and/or weight based d osing when appropriate to reduce radiation dose to as low as reasonably achievable (ALARA). [facility]: Dose Right [facility]: CareDose [facility]: Dose Right [facility]: Teradose 4D [facility]: [employer] RADIATION DOSE: CT Rad equipment meets quality standard of care and radiation dose reduction techniq ues were employed. CTDIvol: 3.0 mGy. DLP: 127 mGy-cm. mGy. LIMITATIONS: No technical limitations. FINDINGS: LUNGS AND PLEURA: Centrilobular emphysema. Moderate right pleural effusion. Small left p leural effusion. Limited opacification in the lateral aspect of the right middle lobe. Limited opac ification in the lingula. HILAR AND MEDIASTINAL STRUCTURES: No identified masses or abnormal nodes. No obvious aneurysm. HEART AND VASCULAR STRUCTURES: No aneurysm. No pericardial effusion. Coronary artery calcifications . UPPER ABDOMEN: No significant findings. Limited exam. THYROID AND OTHER SOFT TISSUES: No masses. No adenopathy. BONES: No significant finding. HARDWARE: None in the chest. OTHER: No other significant findings. IMPRESSION: 1. Pulmonary emphysema. 2. Moderate right pleural effusion with smaller left pleural effusion. 3. Limited airspace disease in the right middle lobe and in the lingula: Pneumonia versus atelectas is. TECHNICAL DOCUMENTATION: JOB ID: [id number] Quality ID # [id number]: Final reports with documentation of one or more dose reduction techniques (e.g., Au tomated exposure control, adjustment of the mA and/or kV according to patient size, use of iterative reconstruction technique) 2010 [facility]- All Rights Reserved Reading location - IP/workstation name: [email or web address]
[2019-10-21] MEDS ORDERED: AZITHROMYCIN INJ 500 MG VIAL IV ONE (18:18)
[2019-10-21] MEDS ORDERED: CEFTRIAXONE 2 GM/D5W RTU 2 GM/50 ML RTUPB IV ONE (18:18)
[2019-10-21] MEDS ORDERED: GUAIFENESIN SYRP 200 MG/10 ML UDC PO PRN (18:25)
[2019-10-21] MEDS ORDERED: ACETAMINOPHEN 325 MG TABLET PO PRN (18:25)
--- NOTE | 2019-10-21 18:26 | ER Document Report ---
ED General - General Chief Complaint: Weakness Stated Complaint: SHORT OF BREATH Time Seen by Provider: 10/21/19 16:44 Primary Care Provider: CHLOE ROTHMAN [Primary Care Provider] - Follow up as needed Information source: Patient TRAVEL OUTSIDE OF THE [place] IN LAST 30 DAYS: No - HPI Notes: Patient presents with several days of shortness of breath. He states it is constant. Is severe. Is worse with exertion better with rest. There is obviously no radiation of the symptoms. He denies any fevers. He states he is coughing up yellow-green sputum. No significant chest pain. He states that his legs are very weak though and he has trouble ambulating due to the weakness. Patient states that he does not believe he has had a fever. He does not know of any known covert virus exposures. - Related Data Allergies/Adverse Reactions: No Known Allergies Allergy (Verified 09/18/19 13:47) Past Medical History - General Information source: Patient - Social History Smoking Status: Current Every Day Smoker Frequency of alcohol use: None Drug Abuse: None Family History: Reviewed & Not Pertinent - Past Medical History Cardiac Medical History: Reports: Hx Heart Attack, Hx Hypercholesterolemia, Hx Hypertension Renal/ Medical History: Denies: Hx Peritoneal Dialysis Past Surgical History: Reports: Hx Abdominal Surgery - hernia x2, Hx Cardiac Catheterization - CABG, Hx Cardiac Surgery - stent, pacemaker/defibulator placed, Hx Coronary Artery Bypass Graft, Hx Herniorrhaphy - bilateral inguinal hernia repair, Hx Orthopedic Surgery, Hx Pacemaker Review of Systems - Review of Systems Constitutional: Malaise, Weakness. denies: Chills, Fever Cardiovascular: denies: Chest pain, Palpitations Respiratory: Cough, Short of breath -: Yes All other systems reviewed and negative Physical Exam - Vital signs Vitals: Temp Resp Pulse Ox 97.8 F 23 H 97 10/21/19 16:23 10/21/19 16:23 10/21/19 16:23 Interpretation: Hypoxic, Tachypneic - General General appearance: Alert In distress: Mild - Respiratory - HEENT Head: Normocephalic, Atraumatic Eyes: Normal Pupils: PERRL - Respiratory Respiratory status: No respiratory distress Chest status: Nontender Breath sounds: Decreased air movement Chest palpation: Normal - Cardiovascular Rhythm: Regular Heart sounds: Normal auscultation Murmur: No - Abdominal Inspection: Normal Distension: No distension Bowel sounds: Normal Tenderness: Nontender Organomegaly: No organomegaly - Back Back: Normal, Nontender - Extremities General upper extremity: Normal inspection, Nontender, Normal color, Normal ROM, Normal temperature General lower extremity: Normal inspection, Nontender, Normal color, Normal ROM, Normal temperature, Normal weight bearing. No: Brock's sign - Neurological Neuro grossly intact: Yes Cognition: Normal Orientation: AAOx4 Stafford Coma Scale Eye Opening: Spontaneous Stafford Coma Scale Verbal: Oriented Kath Coma Scale Motor: Obeys Commands Stafford Coma Scale Total: 15 Speech: Normal Motor strength normal: LUE, RUE, LLE, RLE Sensory: Normal - Psychological Associated symptoms: Normal affect, Normal mood - Skin Skin Temperature: Warm Skin Moisture: Dry Skin Color: Normal Course - Re-evaluation Re-evalutation: 10/21/19 18:23 Patient presents with acute shortness of breath. X-ray is consistent with pneumonia. He was hypoxic on arrival. He will be treated as a community- acquired pneumonia. His BNP is elevated but it appears to be baseline and he does not appear to have any evidence of pulmonary edema at this time. As for sepsis, lactate is pending however patient is neither tachycardic nor hypotensive. - Vital Signs Vital signs: Temp Pulse Resp BP Pulse Ox 97.8 F 60 24 H 131/71 H 100 10/21/19 16:26 10/21/19 16:26 10/21/19 16:26 10/21/19 16:26 10/21/19 17:00 - Laboratory Result Diagrams: 10/21/19 16:23 10/21/19 16:23 Laboratory results interpreted by me: 10/21/19 10/21/19 16:23 16:23 Chloride 110 H BUN 32 H Creatinine 1.54 H Est GFR ( Amer) 55 L Est GFR (MDRD) Non-Af 45 L Glucose 122 H Total Bilirubin 1.4 H NT-Pro-B Natriuret Pep 06104 H Total Protein 6.1 L Albumin 3.2 L - Diagnostic Test Radiology reviewed: Image reviewed, Reports reviewed Critical Care Note - Critical Care Note Total time excluding time spent on procedures (mins): 50 Comments: 50 minutes of critical care time were spent on this patient with hypoxic pneumonia. This time was spent reviewing old records. No spent talking with virtualization consultant. It was spent reviewing imaging and laboratory values. I spent doing multiple reassessments. Discharge - Discharge Clinical Impression: Pneumonia Qualifiers: Pneumonia type: due to unspecified organism Laterality: right Lung location: middle lobe of lung Qualified Code(s): J18.9 - Pneumonia, unspecified organism Condition: Serious Disposition: ADMITTED INPATIENT Admitting Provider: Tommy (Hospitalist) - [place] [facility] Admitted: Telemetry [facility]errals: [facility] [Primary [facility]] - Follow up as needed
[2019-10-21 18:36] LABS: ABSOLUTE EOSINOPHILS # (AUTO) 0.1 10^3/uL (0.0-0.6); ABSOLUTE LYMPHOCYTES (AUTO) 0.8 10^3/uL (0.5-4.7); ABSOLUTE MONOCYTES (AUTO) 0.4 10^3/uL (0.1-1.4); BASOPHILS % (AUTO) 0.5 % (0-2); EOSINOPHILS % (AUTO) 1.5 % (0-6); HEMATOCRIT 32.5 % (37.9-51.0); HEMOGLOBIN 10.6 g/dL (13.5-17.0); LYMPHOCYTES % (AUTO) 18.1 % (13-45); MEAN CORPUSCULAR HEMOGLOBIN 33.7 pg (27.0-33.4); MEAN CORPUSCULAR HGB CONC 32.7 g/dL (32.0-36.0); MEAN CORPUSCULAR VOLUME 103 fl (80-97); MONOCYTES % (AUTO) 8.7 % (3-13); RED BLOOD COUNT 3.14 10^6/uL (4.35-5.55); RED CELL DISTRIBUTION WIDTH 22.7 % (11.5-14.0); SEGMENTED NEUTROPHILS % (AUTO) 71.2 % (42-78); TOTAL CELLS COUNTED % (AUTO) 100 %; WHITE BLOOD COUNT 4.2 10^3/uL (4.0-10.5)
[2019-10-21] MEDS ORDERED: NORMAL SALINE 1000 ML 1,000 ML IV ONE (19:00)
[2019-10-21 19:07] LABS: PLATELET COUNT 65 10^3/uL (150-450)
--- NOTE | 2019-10-21 19:45 | PDOC H&P ---
History of Present Illness Admission Date/PCP: 10/21/19 18:29 [facility] Patient complains of: generalized weakness History of Present Illness: LORIE OLIVIA is a 68 year old male with a limited medical history as patient is a poor historian but known to have hypertension, hyperlipidemia, CHF, w/ pacemaker/AICD and recent LLE arterial bypass surgery (September 2019), nicotine dependence w/ continuous use who presented to the emergency department today with a complaint of several days of progressively worsening dyspnea at rest and generalized weakness. Patient report a productive cough. He denies fever, though admits to chills. No known sick contacts. Evaluation in the emergency department revealed tachypnea, hypoxia on room air, baseline renal function (CR 1.5/BUN 32), baseline proBNP (61k), CBC pending. Urinalysis pending. COVID pending. Chest x-ray is benign. Chest CT shows right middle lobe and lingular consolidation consistent with pneumonia. He is provided IV azithromycin and Rocephin; referred to the hospitalist service for further evaluation management of the above-stated complaints findings. Past Medical History Cardiac Medical History: Reports: Congestive Heart Failure, Myocardial Infarction, Hyperlipidema, Hypertension Pulmonary Medical History: Reports: Chronic Obstructive Pulmonary Disease (COPD) EENT Medical History: Reports: None Neurological Medical History: Reports: None Endocrine Medical History: Reports: None Renal/ Medical History: Reports: Chronic Kidney Disease Malignancy Medical History: Reports: None GI Medical History: Reports: Gastroesophageal Reflux Disease Musculoskeltal Medical History: Reports: None Skin Medical History: Reports: None Psychiatric Medical History: Reports: Tobacco Dependency Traumatic Medical History: Reports: None Hematology: Reports: None Infectious Medical History: Reports: None Past Surgical History Past Surgical History: Reports: Cardiac Catheterization - CABG, Coronary Artery Bypass Graft, Herniorrhaphy - bilateral inguinal hernia repair, Orthopedic Surgery, Pacemaker Social History Information Source: Patient, [facility] Records Smoking Status: Current Every Day Smoker Cigarettes Packs Per Day: 0.3 Frequency of Alcohol Use: None Hx Recreational Drug Use: No Hx Prescription Drug Abuse: No - Advance Directive Resuscitation Status: Full Code Family History Family History: Reviewed & Not Pertinent Parental Family History Reviewed: Yes Children Family History Reviewed: Yes Sibling(s) Family History Reviewed.: Yes Medication/Allergy Allergies/Adverse Reactions: No Known Allergies Allergy (Verified 09/18/19 13:47) Review of Systems Constitutional: PRESENT: anorexia, chills, fatigue, weakness. ABSENT: fever(s), headache(s), weight gain, weight loss Eyes: ABSENT: visual disturbances Ears: ABSENT: hearing changes Cardiovascular: PRESENT: edema - ble. ABSENT: chest pain, dyspnea on exertion, orthropnea, palpitations Respiratory: PRESENT: cough, dyspnea, sputum. ABSENT: hemoptysis Gastrointestinal: ABSENT: abdominal pain, constipation, diarrhea, hematemesis, hematochezia, nausea, vomiting Genitourinary: ABSENT: dysuria, hematuria Musculoskeletal: ABSENT: joint swelling Integumentary: ABSENT: rash, wounds Neurological: PRESENT: weakness. ABSENT: abnormal gait, abnormal speech, confusion, dizziness, focal weakness, syncope Psychiatric: ABSENT: anxiety, depression, homidical ideation, suicidal ideation Endocrine: ABSENT: cold intolerance, heat intolerance, polydipsia, polyuria Hematologic/Lymphatic: ABSENT: easy bleeding, easy bruising Physical Exam Vital Signs: Temp Pulse Resp BP Pulse Ox 97.8 F 60 24 H 131/71 H 100 10/21/19 16:26 10/21/19 16:26 10/21/19 16:26 10/21/19 16:26 10/21/19 17:00 Intake & Output 10/20/19 10/21/19 10/22/19 06:59 06:59 06:59 Weight 58.06 kg General appearance: PRESENT: cooperative, mild distress, well-developed, well- nourished, other - Acutely ill-appearing Head exam: PRESENT: atraumatic, normocephalic Eye exam: PRESENT: conjunctiva pink, EOMI, PERRLA. ABSENT: scleral icterus Mouth exam: PRESENT: dry mucosa, tongue midline Respiratory exam: PRESENT: clear to auscultation khushboo, decreased breath sounds - Throughout, symmetrical, tachypnea, other - Supplemental oxygen by nasal cannu la. ABSENT: rales, rhonchi, wheezes Cardiovascular exam: PRESENT: RRR. ABSENT: diastolic murmur, rubs, systolic murmur Pulses: PRESENT: normal dorsalis pedis pul Vascular exam: PRESENT: normal capillary refill GI/Abdominal exam: PRESENT: normal bowel sounds, soft. ABSENT: distended, guarding, mass, organolmegaly, rebound, tenderness Rectal exam: PRESENT: deferred Extremities exam: PRESENT: full ROM, +1 edema - BLE; right greater than left. ABSENT: calf tenderness, clubbing, pedal edema Neurological exam: PRESENT: alert, awake, oriented to person, oriented to place, oriented to time, oriented to situation, CN II-XII grossly intact, other - Fatigue; forgetful. ABSENT: motor sensory deficit Psychiatric exam: PRESENT: appropriate affect, normal mood. ABSENT: homicidal ideation, suicidal ideation Skin exam: PRESENT: dry, intact, warm. ABSENT: cyanosis, rash Results Laboratory Results: 10/21/19 16:23 10/21/19 10/21/19 10/21/19 16:23 16:23 17:10 WBC Cancelled RBC Cancelled Hgb Cancelled Hct Cancelled MCV Cancelled MCH Cancelled MCHC Cancelled RDW Cancelled Plt Count Cancelled Seg Neutrophils % Cancelled VBG pH 7.37 VBG pCO2 45.6 VBG HCO3 25.6 VBG Base Excess 0 Sodium 139.4 Potassium 4.3 Chloride 110 H Carbon Dioxide 24 Anion Gap 5 BUN 32 H Creatinine 1.54 H Est GFR ( Amer) 55 L Glucose 122 H Lactic Acid Calcium 9.1 Total Bilirubin 1.4 H AST 36 Alkaline Phosphatase 115 Total Protein 6.1 L Albumin 3.2 L 10/21/19 17:20 WBC RBC Hgb Hct MCV MCH MCHC RDW Plt Count Seg Neutrophils % VBG pH VBG pCO2 VBG HCO3 VBG Base Excess Sodium Potassium Chloride Carbon Dioxide Anion Gap BUN Creatinine Est GFR ( Amer) Glucose Lactic Acid 1.0 Calcium Total Bilirubin AST Alkaline Phosphatase Total Protein Albumin 10/21/19 16:23 Troponin I 0.037 NT-Pro-B Natriuret Pep 87205 H Impressions: Chest X-Ray 10/21/19 16:25 IMPRESSION: Cardiomegaly without pulmonary edema. Chronic lung changes. Chest CT 10/21/19 17:18 IMPRESSION: 1. Pulmonary emphysema. 2. Moderate right pleural effusion with smaller left pleural effusion. 3. Limited airspace disease in the right middle lobe and in the lingula: Pneumonia versus atelectasis. Assessment and Plan - Diagnosis (1) Pneumonia Qualifiers: Pneumonia type: due to unspecified organism Laterality: right Lung locati on: middle lobe of lung Qualified Code(s): J18.9 - Pneumonia, unspecified organism Is this a current diagnosis for this admission?: Yes Plan: Blood and sputum cultures pending Patient is admitted to the medical floor on continuous telemetry. Patient is empirically placed on IV azithromycin and Rocephin. Supplemental oxygen as needed to maintain saturations greater than 89%. Incentive spirometer and flutter valve to bedside. Remaining management as below. (2) Suspected COVID-19 virus infection Is this a current diagnosis for this admission?: Yes Plan: D-dimer 13.24 Ferritin, LDH, CRP pending COVID pending. Start on full dose Lovenox Consider Hydroxychloroquine or Remdesivir pending COVID result. Decadron 4 mg IV every 12 hours Supplemental oxygen as needed; HFNC as needed. Start vitamin C, vitamin D, zinc, melatonin supplementation Scheduled albuterol HFA As needed nebs (3) Acute respiratory failure with hypoxia Is this a current diagnosis for this admission?: Yes Plan: Secondary to #1 and 2 Management as above. (4) COPD (chronic obstructive pulmonary disease) Is this a current diagnosis for this admission?: Yes Plan: Stable and without exacerbation at this time. Respiratory management as above. (5) CHF (congestive heart failure), NYHA class I Qualifiers: Congestive heart failure type: unspecified Qualified Code(s): I50.9 - Heart failure, unspecified Is this a current diagnosis for this admission?: Yes Plan: Although proBNP elevated to 61K; baseline 69K. On exam, patient appears dry. We will provide IV fluids. Resume antihypertensive therapies and remaining, regiment once reconciled Cardiac diet Daily weights, strict I&O's (6) Tobacco dependence Is this a current diagnosis for this admission?: Yes Plan: Smoking cessation encouraged. Nicotine replacement therapies provided. - Time Time Spent with patient: 35 or more minutes Medications reviewed and adjusted accordingly: Yes Anticipated discharge: Home with Homehealth - vs SNF Within: Other - Inpatient Certification Based on my medical assessment, after consideration of the patient's comorbidities, presenting symptoms, or acuity I expect that the services needed warrant INPATIENT care.: Yes I certify that my determination is in accordance with my understanding of Medicare's requirements for reasonable and necessary INPATIENT services [42 CFR 412.3e].: Yes Medical Necessity: Failure to Improve With Outpatient Therapy, Need Close Monitoring Due to Risk of Patient Decompensation, Need For IV Fluids, Need For Continuous Telemetry Monitoring, Need for Nebulizer Therapy and Monitoring of Response, Risk of Complication if Not Cared For in Hospital
[2019-10-21 20:27] LABS: APPEARANCE,URINE SLIGHTLY-CLOUDY; BILIRUBIN,URINE NEGATIVE (NEGATIVE); COLOR,URINE AMBER; GLUCOSE, URINE NEGATIVE (NEGATIVE); KETONES,URINE NEGATIVE (NEGATIVE); LEUKOCYTE ESTERASE,URINE NEGATIVE (NEGATIVE); NITRITE,URINE NEGATIVE (NEGATIVE); PROTEIN,URINE 100 mg/dL (NEGATIVE); URINE SPECIFIC GRAVITY 1.023
[2019-10-21 21:24] LABS: C-REACTIVE PROTEIN < 5.0 mg/L (<10.0)
[2019-10-21] MEDS: MELATONIN 3 MG TABLET PO SCH (21:24)
[2019-10-21] MEDS: ENOXAPARIN SODIUM INJ 60 MG/0.6 ML DISP.SYRIN SUBCUT SCH (21:24)
[2019-10-21] MEDS: FAMOTIDINE 20 MG TABLET PO SCH (21:24)
[2019-10-21] MEDS: DEXAMETHASONE SOD PHOSPHATE INJ 4 MG/1 ML VIAL IV SCH (21:24)
[2019-10-21] MEDS: ALBUTEROL SULFATE HFA (90 MCG/PUFF) 200 PUFF/8.5 GM MDI IH SCH (21:25)
[2019-10-21] MEDS ORDERED: ALBUTEROL SULFATE HFA (90 MCG/PUFF) 8 GM MDI IH SCH (22:00)
[2019-10-21] MEDS ORDERED: HEPARIN SOD (PORCINE) 5,000 UNIT/ML 1 ML VIAL SUBCUT SCH (22:00)
[2019-10-22] MEDS: ALBUTEROL SULFATE HFA (90 MCG/PUFF) 200 PUFF/8.5 GM MDI IH SCH ×6 (03:00→21:45)
[2019-10-22] MEDS: NORMAL SALINE 1000 ML 1,000 ML IV PRN ×2 (04:51→21:46)
[2019-10-22 06:42] LABS: ABSOLUTE LYMPHOCYTES (AUTO) 0.3 10^3/uL (0.5-4.7); ABSOLUTE MONOCYTES (AUTO) 0.1 10^3/uL (0.1-1.4); ABSOLUTE NEUT (AUTO) 2.6 10^3/uL (1.7-8.2); BASOPHILS % (AUTO) 0.2 % (0-2); EOSINOPHILS % (AUTO) 0.1 % (0-6); HEMATOCRIT 29.3 % (37.9-51.0); HEMOGLOBIN 9.4 g/dL (13.5-17.0); LYMPHOCYTES % (AUTO) 10.8 % (13-45); MEAN CORPUSCULAR HEMOGLOBIN 33.6 pg (27.0-33.4); MEAN CORPUSCULAR HGB CONC 32.2 g/dL (32.0-36.0); MEAN CORPUSCULAR VOLUME 104 fl (80-97); MONOCYTES % (AUTO) 2.4 % (3-13); RED BLOOD COUNT 2.81 10^6/uL (4.35-5.55); SEGMENTED NEUTROPHILS % (AUTO) 86.5 % (42-78); TOTAL CELLS COUNTED % (AUTO) 100 %
[2019-10-22 06:52] LABS: BLOOD UREA NITROGEN 30 mg/dL (7-20); CALCIUM 8.7 mg/dL (8.4-10.2); GLUCOSE 122 mg/dL (75-110); POTASSIUM 4.5 mmol/L (3.6-5.0)
[2019-10-22 06:58] LABS: CARBON DIOXIDE 24 mmol/L (22-30); CHLORIDE 113 mmol/L (98-107)
[2019-10-22 07:02] LABS: ANION GAP 1 (5-19)
[2019-10-22 07:11] LABS: PLATELET COUNT 46 10^3/uL (150-450)
--- NOTE | 2019-10-22 09:17 | EKG REPORT ---
SEVERITY:- ABNORMAL ECG - ATRIAL-PACED COMPLEXES NONSPECIFIC INTRAVENTRICULAR CONDUCTION DELAY PROBABLE LVH WITH SECONDARY REPOL ABNRM PROBABLE INFERIOR INFARCT, AGE INDETERMINATE : Confirmed by: Roseline Morrow 22-Oct-2019 09:16:13
[2019-10-22] MEDS: DEXAMETHASONE SOD PHOSPHATE INJ 4 MG/1 ML VIAL IV SCH ×2 (09:43→21:43)
[2019-10-22] MEDS: ASCORBIC ACID 500 MG TABLET PO SCH ×2 (09:43→17:06)
[2019-10-22] MEDS: ZINC SULFATE 220 MG CAPSULE PO SCH (09:43)
[2019-10-22] MEDS: NICOTINE 14 MG/24 HR PATCH.TD24 TD SCH (09:43)
[2019-10-22] MEDS: ENOXAPARIN SODIUM INJ 60 MG/0.6 ML DISP.SYRIN SUBCUT SCH (09:44)
[2019-10-22] MEDS: CHOLECALCIFEROL (D3) 1,000 UNIT (25 MCG) TABLET PO SCH (09:44)
[2019-10-22] MEDS: FAMOTIDINE 20 MG TABLET PO SCH (09:44)
[2019-10-22 13:31] LABS: APPEARANCE,URINE SLIGHTLY-CLOUDY; BILIRUBIN,URINE NEGATIVE (NEGATIVE); COLOR,URINE AMBER; GLUCOSE, URINE NEGATIVE (NEGATIVE); KETONES,URINE NEGATIVE (NEGATIVE); LEUKOCYTE ESTERASE,URINE NEGATIVE (NEGATIVE); NITRITE,URINE NEGATIVE (NEGATIVE); PROTEIN,URINE 100 mg/dL (NEGATIVE); URINE SPECIFIC GRAVITY 1.024
--- NOTE | 2019-10-22 15:24 | PDOC PROGRESS REPORT ---
Subjective Progress Note for:: 10/22/19 Subjective:: Patient states that he feels better today. On commode with small formed BM, no blood noted Reason For Visit: PNEUMONIA Physical Exam Vital Signs: Temp Pulse Resp BP Pulse Ox 97.6 F 70 19 127/80 H 97 10/22/19 11:47 10/22/19 14:00 10/22/19 11:47 10/22/19 11:47 10/22/19 13:05 Pulse Oximeter Continuous Start: 10/21/19 18:43 Freq: RTQ4 Status: Active Protocol: Document 10/22/19 13:05 NSM (Rec: 10/22/19 13:05 NSM [id number]) Pulse Oximetry Assessment Oxygen Saturation (92-100) 97 Oxygen Flow Rate (L/min) 1 Oxygen Delivery Method Oxymizer Oxygen Conserving Device Fraction of Inspired Oxygen (FIO2) 24 Equipment Usage Equipment in Use Continuous SpO2 Machine # [id number] Intake & Output 10/21/19 10/22/19 10/23/19 06:59 06:59 06:59 Intake Total 272 120 Output Total 0 0 Balance 272 120 Weight 51 kg General appearance: PRESENT: no acute distress, cooperative Head exam: PRESENT: atraumatic, normocephalic Eye exam: PRESENT: conjunctiva pink Mouth exam: PRESENT: moist, tongue midline Neck exam: ABSENT: JVD Respiratory exam: PRESENT: decreased breath sounds - Air entry diminished at bases bilaterally R>L. Breath sounds coarse, symmetrical, unlabored. ABSENT: accessory muscle use, crackles, rhonchi, wheezes Cardiovascular exam: PRESENT: RRR, +S1, +S2 Vascular exam: PRESENT: normal capillary refill GI/Abdominal exam: PRESENT: normal bowel sounds, soft. ABSENT: distended, tenderness Rectal exam: PRESENT: deferred Extremities exam: ABSENT: calf tenderness, pedal edema Neurological exam: PRESENT: alert, awake, oriented to person, oriented to place, oriented to time, oriented to situation, CN II-XII grossly intact Psychiatric exam: PRESENT: appropriate affect, normal mood. ABSENT: agitated, anxious Skin exam: PRESENT: dry, normal color, warm. ABSENT: petechiae Results Laboratory Results: 10/22/19 06:02 10/22/19 06:02 10/21/19 10/21/19 10/21/19 16:23 16:23 17:10 WBC Cancelled RBC Cancelled Hgb Cancelled Hct Cancelled MCV Cancelled MCH Cancelled MCHC Cancelled RDW Cancelled Plt Count Cancelled Seg Neutrophils % Cancelled VBG pH 7.37 VBG pCO2 45.6 VBG HCO3 25.6 VBG Base Excess 0 Sodium 139.4 Potassium 4.3 Chloride 110 H Carbon Dioxide 24 Anion Gap 5 BUN 32 H Creatinine 1.54 H Est GFR ( Amer) 55 L Glucose 122 H Lactic Acid Calcium 9.1 Ferritin Total Bilirubin 1.4 H AST 36 Alkaline Phosphatase 115 C-Reactive Protein Total Protein 6.1 L Albumin 3.2 L Urine Color Urine Appearance Urine pH Ur Specific [place] Urine Protein Urine Glucose (UA) Urine Ketones Urine Blood Urine Nitrite Ur Leukocyte Esterase Urine WBC (Auto) Urine RBC (Auto) 10/21/19 10/21/19 10/21/19 17:20 18:15 20:00 WBC 4.2 RBC 3.14 L Hgb 10.6 L Hct 32.5 L MCV 103 H MCH 33.7 H MCHC 32.7 RDW 22.7 H Plt Count 65 L Seg Neutrophils % 71.2 VBG pH VBG pCO2 VBG HCO3 VBG Base Excess Sodium Potassium Chloride Carbon Dioxide Anion Gap BUN Creatinine Est GFR ( Amer) Glucose Lactic Acid 1.0 Calcium Ferritin Total Bilirubin AST Alkaline Phosphatase C-Reactive Protein Total Protein Albumin Urine Color NINI Urine Appearance SLIGHTLY-CLOUDY Urine pH 5.0 Ur Specific [place] 1.023 Urine Protein 100 H Urine Glucose (UA) NEGATIVE Urine Ketones NEGATIVE Urine Blood SMALL H Urine Nitrite NEGATIVE Ur Leukocyte Esterase NEGATIVE Urine WBC (Auto) 1 Urine RBC (Auto) 2 10/21/19 10/21/19 10/21/19 20:25 20:25 23:23 WBC RBC Hgb Hct MCV MCH MCHC RDW Plt Count Seg Neutrophils % VBG pH VBG pCO2 VBG HCO3 VBG Base Excess Sodium Potassium Chloride Carbon Dioxide Anion Gap BUN Creatinine Est GFR ( Amer) Glucose Lactic Acid 1.0 1.0 Calcium Ferritin 191.00 Total Bilirubin AST Alkaline Phosphatase C-Reactive Protein < 5.0 Total Protein Albumin Urine Color Urine Appearance Urine pH Ur Specific [place] Urine Protein Urine Glucose (UA) Urine Ketones Urine Blood Urine Nitrite Ur Leukocyte Esterase Urine WBC (Auto) Urine RBC (Auto) 07/22/20 07/22/20 07/22/20 06:02 06:02 13:05 WBC 3.0 L RBC 2.81 L Hgb 9.4 L Hct 29.3 L MCV 104 H MCH 33.6 H MCHC 32.2 RDW 22.0 H Plt Count 46 L Seg Neutrophils % 86.5 H VBG pH VBG pCO2 VBG HCO3 VBG Base Excess Sodium 138.4 Potassium 4.5 Chloride 113 H Carbon Dioxide 24 Anion Gap 1 L BUN 30 H Creatinine 1.49 H Est GFR ( Amer) 57 L Glucose 122 H Lactic Acid Calcium 8.7 Ferritin Total Bilirubin AST Alkaline Phosphatase C-Reactive Protein Total Protein Albumin Urine Color NINI Urine Appearance SLIGHTLY-CLOUDY Urine pH 5.0 Ur Specific [place] 1.024 Urine Protein 100 H Urine Glucose (UA) NEGATIVE Urine Ketones NEGATIVE Urine Blood NEGATIVE Urine Nitrite NEGATIVE Ur Leukocyte Esterase NEGATIVE Urine WBC (Auto) 0 Urine RBC (Auto) 2 10/21/19 16:23 Troponin I 0.037 NT-Pro-B Natriuret Pep 92646 H Impressions: Chest X-Ray 10/21/19 16:25 IMPRESSION: Cardiomegaly without pulmonary edema. Chronic lung changes. Chest CT 10/21/19 17:18 IMPRESSION: 1. Pulmonary emphysema. 2. Moderate right pleural effusion with smaller left pleural effusion. 3. Limited airspace disease in the right middle lobe and in the lingula: Pneumonia versus atelectasis. Assessment and Plan - Diagnosis (1) Acute respiratory failure with hypoxia Is this a current diagnosis for this admission?: Yes Plan: Continue supplemental oxygen support Titrate/wean FiO2 as tolerated Continue dexamethasone 4 mg IV every 12 hours Continue albuterol HFA 2 puffs every 4 hours Continue albuterol nebs every 6 hours as needed Continue guaifenesin 200 mg p.o. every 4 hours as needed cough SARS-CoV-2 pending Continue ascorbic acid, zinc, and vitamin D (2) Pneumonia Is this a current diagnosis for this admission?: Yes Plan: Continue current antibiotics (azithromycin 500 mg IV daily/ceftriaxone 1 g IV daily) Further treatment as noted above Blood cultures pending (4) COPD (chronic obstructive pulmonary disease) Is this a current diagnosis for this admission?: Yes Plan: Does not appear to be acute COPD exacerbation Management as noted above (5) Tobacco dependence Is this a current diagnosis for this admission?: Yes Plan: Cessation counseling reinforced To new nicotine patch (6) Thrombocytopenia Is this a current diagnosis for this admission?: Yes Plan: No obvious sign of hemorrhage or thrombosis Hematology consultation requested Stop LMWH, D-Dimer elevated but will await hematology input before continuing anticoagulation Stop famotidine (7) Anemia Is this a current diagnosis for this admission?: Yes Plan: No obvious sign of active hemorrhage Hematology consult as noted above - Time Time Spent with patient: 25-34 minutes Medications reviewed and adjusted accordingly: Yes Anticipated discharge: Home Within: within 72 hours
--- NOTE | 2019-10-22 16:35 | PDOC CONSULTATION ---
Consultation Consult Date: 10/22/19 Attending physician:: EDWARD BRANCH Provider Consulted: MIRIAN ANSARI Consult reason:: Pancytopenia History of Present Illness Admission Date/PCP: 10/21/19 18:29 [facility] Patient complains of: Pancytopenia History of Present Illness: LORIE OLIVIA is a 68 year old male who presented w/ h/o increasing dyspnea and cough, upon admit was found to have evidence of pneumonia on CT. His wt ct, hb and plt have trended down. Of note he did have pancytopenia in the past, in review plt was 80-100K in 2019 and hb 8-10 during that time as well. He does have CHF but don't see that he has a cirrhosis diagnosis. Past Medical History Cardiac Medical History: Reports: Congestive Heart Failure, Myocardial Infarction, Hyperlipidema, Hypertension Pulmonary Medical History: Reports: Chronic Obstructive Pulmonary Disease (COPD) EENT Medical History: Reports: None Neurological Medical History: Reports: None Endocrine Medical History: Reports: None Renal/ Medical History: Reports: Chronic Kidney Disease Malignancy Medical History: Reports: None GI Medical History: Reports: Gastroesophageal Reflux Disease Musculoskeltal Medical History: Reports: None Skin Medical History: Reports: None Psychiatric Medical History: Reports: Tobacco Dependency Denies: Depression Traumatic Medical History: Reports: None Hematology: Reports: None Infectious Medical History: Reports: None Past Surgical History Past Surgical History: Reports: Cardiac Catheterization - CABG, Coronary Artery Bypass Graft, Herniorrhaphy - bilateral inguinal hernia repair, Orthopedic Surgery, Pacemaker Social History Smoking Status: Current Every Day Smoker Cigarettes Packs Per Day: 0.3 Frequency of Alcohol Use: None Hx Recreational Drug Use: No Hx Prescription Drug Abuse: No - Advance Directive Resuscitation Status: Full Code Family History Family History: Reviewed & Not Pertinent Parental Family History Reviewed: Yes Children Family History Reviewed: Yes Sibling(s) Family History Reviewed.: Yes Medication/Allergy Home Medications: Albuterol Sulfate [Proair HFA Inhalation Aerosol 8.5 gm MDI] 2 puff IH Q6HP PRN 10/22/19 Carvedilol 25 mg PO BID 10/22/19 Clopidogrel Bisulfate [Plavix 75 mg Tablet] 75 mg PO DAILY 10/22/19 Digoxin [Lanoxin 0.25 mg Tablet] 0.25 mg PO DAILY 10/22/19 Furosemide [Lasix 20 mg Tablet] 20 mg PO TUTH 10/22/19 Isosorbide Mononitrate [Imdur 30 mg Tablet.er] 30 mg PO DAILY 10/22/19 Nitroglycerin [Nitrostat 0.4 mg (1/150 Gr) Tabs 25/Bottle] 0.4 mg SL Q5MP PRN 10/22/19 Rosuvastatin Calcium [Crestor] 20 mg PO QHS 10/22/19 Tiotropium Br/Olodaterol HCl [Stiolto Respimat Inhal Inez] 2 puff IH DAILY 10/22/19 Tiotropium [place] [Spiriva Handihaler 5 Cap/Kit (18 Mcg/Cap)] 1 cap IH DAILY 10/22/19 Valsartan [Diovan 80 mg Tablet] 40 mg PO DAILY 10/22/19 Zolpidem Tartrate [Ambien] 10 mg PO HSP PRN 10/22/19 Allergies/Adverse Reactions: No Known Allergies Allergy (Verified 09/18/19 13:47) Review of Systems Constitutional: ABSENT: chills, fever(s), headache(s), weight gain, weight loss Eyes: ABSENT: visual disturbances Ears: ABSENT: hearing changes Cardiovascular: ABSENT: chest pain, dyspnea on exertion, edema, orthropnea, palpitations Respiratory: ABSENT: cough, hemoptysis Gastrointestinal: ABSENT: abdominal pain, constipation, diarrhea, hematemesis, hematochezia, nausea, vomiting Genitourinary: ABSENT: dysuria, hematuria Musculoskeletal: ABSENT: joint swelling Integumentary: ABSENT: rash, wounds Neurological: ABSENT: abnormal gait, abnormal speech, confusion, dizziness, focal weakness, syncope Psychiatric: ABSENT: anxiety, depression, homidical ideation, suicidal ideation Endocrine: ABSENT: cold intolerance, heat intolerance, polydipsia, polyuria Hematologic/Lymphatic: ABSENT: easy bleeding, easy bruising Physical Exam Vital Signs: Temp Pulse Resp BP Pulse Ox 97.6 F 70 19 127/80 H 97 10/22/19 11:47 10/22/19 14:00 10/22/19 11:47 10/22/19 11:47 10/22/19 13:05 Pulse Oximeter Continuous Start: 10/21/19 18:43 Freq: RTQ4 Status: Active Protocol: Document 10/22/19 13:05 BRODYM (Rec: 10/22/19 13:05 NSM [id number]) Pulse Oximetry Assessment Oxygen Saturation (92-100) 97 Oxygen Flow Rate (L/min) 1 Oxygen Delivery Method Oxymizer Oxygen Conserving Device Fraction of Inspired Oxygen (FIO2) 24 Equipment Usage Equipment in Use Continuous SpO2 Machine # N4 Intake & Output 10/21/19 10/22/19 10/23/19 06:59 06:59 06:59 Intake Total 272 120 Output Total 0 0 Balance 272 120 Weight 51 kg 51 kg Results Laboratory Results: 10/22/19 06:02 10/22/19 06:02 10/21/19 10/21/19 10/21/19 16:23 16:23 17:10 WBC Cancelled RBC Cancelled Hgb Cancelled Hct Cancelled MCV Cancelled MCH Cancelled MCHC Cancelled RDW Cancelled Plt Count Cancelled Seg Neutrophils % Cancelled VBG pH 7.37 VBG pCO2 45.6 VBG HCO3 25.6 VBG Base Excess 0 Sodium 139.4 Potassium 4.3 Chloride 110 H Carbon Dioxide 24 Anion Gap 5 BUN 32 H Creatinine 1.54 H Est GFR ( Amer) 55 L Glucose 122 H Lactic Acid Calcium 9.1 Ferritin Total Bilirubin 1.4 H AST 36 Alkaline Phosphatase 115 C-Reactive Protein Total Protein 6.1 L Albumin 3.2 L Urine Color Urine Appearance Urine pH Ur Specific [place] Urine Protein Urine Glucose (UA) Urine Ketones Urine Blood Urine Nitrite Ur Leukocyte Esterase Urine WBC (Auto) Urine RBC (Auto) 10/21/19 10/21/19 10/21/19 17:20 18:15 20:00 WBC 4.2 RBC 3.14 L Hgb 10.6 L Hct 32.5 L MCV 103 H MCH 33.7 H MCHC 32.7 RDW 22.7 H Plt Count 65 L Seg Neutrophils % 71.2 VBG pH VBG pCO2 VBG HCO3 VBG Base Excess Sodium Potassium Chloride Carbon Dioxide Anion Gap BUN Creatinine Est GFR ( Amer) Glucose Lactic Acid 1.0 Calcium Ferritin Total Bilirubin AST Alkaline Phosphatase C-Reactive Protein Total Protein Albumin Urine Color NINI Urine Appearance SLIGHTLY-CLOUDY Urine pH 5.0 Ur Specific [place] 1.023 Urine Protein 100 H Urine Glucose (UA) NEGATIVE Urine Ketones NEGATIVE Urine Blood SMALL H Urine Nitrite NEGATIVE Ur Leukocyte Esterase NEGATIVE Urine WBC (Auto) 1 Urine RBC (Auto) 2 10/21/19 10/21/19 10/21/19 20:25 20:25 23:23 WBC RBC Hgb Hct MCV MCH MCHC RDW Plt Count Seg Neutrophils % VBG pH VBG pCO2 VBG HCO3 VBG Base Excess Sodium Potassium Chloride Carbon Dioxide Anion Gap BUN Creatinine Est GFR ( Amer) Glucose Lactic Acid 1.0 1.0 Calcium Ferritin 191.00 Total Bilirubin AST Alkaline Phosphatase C-Reactive Protein < 5.0 Total Protein Albumin Urine Color Urine Appearance Urine pH Ur Specific [place] Urine Protein Urine Glucose (UA) Urine Ketones Urine Blood Urine Nitrite Ur Leukocyte Esterase Urine WBC (Auto) Urine RBC (Auto) 10/22/19 10/22/19 10/22/19 06:02 06:02 13:05 WBC 3.0 L RBC 2.81 L Hgb 9.4 L Hct 29.3 L MCV 104 H MCH 33.6 H MCHC 32.2 RDW 22.0 H Plt Count 46 L Seg Neutrophils % 86.5 H VBG pH VBG pCO2 VBG HCO3 VBG Base Excess Sodium 138.4 Potassium 4.5 Chloride 113 H Carbon Dioxide 24 Anion Gap 1 L BUN 30 H Creatinine 1.49 H Est GFR ( Amer) 57 L Glucose 122 H Lactic Acid Calcium 8.7 Ferritin Total Bilirubin AST Alkaline Phosphatase C-Reactive Protein Total Protein Albumin Urine Color NINI Urine Appearance SLIGHTLY-CLOUDY Urine pH 5.0 Ur Specific [place] 1.024 Urine Protein 100 H Urine Glucose (UA) NEGATIVE Urine Ketones NEGATIVE Urine Blood NEGATIVE Urine Nitrite NEGATIVE Ur Leukocyte Esterase NEGATIVE Urine WBC (Auto) 0 Urine RBC (Auto) 2 10/21/19 16:23 Troponin I 0.037 NT-Pro-B Natriuret Pep [id number] H Impressions: Chest X-Ray 10/21/19 16:25 IMPRESSION: Cardiomegaly without pulmonary edema. Chronic lung changes. Chest CT 10/21/19 17:18 IMPRESSION: 1. Pulmonary emphysema. 2. Moderate right pleural effusion with smaller left pleural effusion. 3. Limited airspace disease in the right middle lobe and in the lingula: Pneumonia versus atelectasis. Status: Image reviewed by me Assessment & Plan - Diagnosis (1) Pancytopenia Is this a current diagnosis for this admission?: Yes Plan: Multifactorial. I reviewed all labs. I think the anemia is likely partly due to anemia chronic disease. His ferritin was >100 so IV iron would not be useful. In future, THERESE maybe useful. The leukopenia and thrombocytopenia are probably related to infection. He may also have some underlying liver dysfxn, maybe cardiac cirrhosis that may result in a chronic mild thrombocytopenia. Await DIC labs today. Agree w/ d/c of lovenox/blood thinners until plt ct stable above 50. May worsen before it gets better if infection related as myelosuppression generally improves slowly post infection. Will follow. - Time Time Spent: Greater than 70 Minutes
[2019-10-22] MEDS: CEFTRIAXONE 1 GM/D5W RTU 1 GM/50 ML RTUPB IV SCH (17:06)
[2019-10-22 18:01] LABS: INTERNATIONAL RATION (INR) 1.44; PROTHROMBIN TIME 17.7 SEC (11.4-15.4)
[2019-10-22 18:02] LABS: PARTIAL THROMBOPLASTIN TIME 34.2 SEC (23.5-35.8)
[2019-10-22 18:28] LABS: FIBRINOGEN 95 mg/dL (209-497)
[2019-10-22] MEDS: AZITHROMYCIN 500 MG in DEXTROSE 5%-WATER 250 ML IV SCH (21:44)
[2019-10-22] MEDS: MELATONIN 3 MG TABLET PO SCH (21:45)
[2019-10-23] MEDS: ALBUTEROL SULFATE HFA (90 MCG/PUFF) 200 PUFF/8.5 GM MDI IH SCH ×4 (02:00→14:27)
[2019-10-23 05:00] LABS: ABSOLUTE LYMPHOCYTES (AUTO) 0.3 10^3/uL (0.5-4.7); ABSOLUTE MONOCYTES (AUTO) 0.2 10^3/uL (0.1-1.4); BASOPHILS % (AUTO) 0.1 % (0-2); HEMATOCRIT 28.4 % (37.9-51.0); HEMOGLOBIN 9.1 g/dL (13.5-17.0); LYMPHOCYTES % (AUTO) 5.3 % (13-45); MEAN CORPUSCULAR HEMOGLOBIN 33.6 pg (27.0-33.4); MEAN CORPUSCULAR HGB CONC 32.1 g/dL (32.0-36.0); MEAN CORPUSCULAR VOLUME 105 fl (80-97); MONOCYTES % (AUTO) 4.4 % (3-13); RED BLOOD COUNT 2.71 10^6/uL (4.35-5.55); RED CELL DISTRIBUTION WIDTH 22.6 % (11.5-14.0); SEGMENTED NEUTROPHILS % (AUTO) 90.2 % (42-78); TOTAL CELLS COUNTED % (AUTO) 100 %; WHITE BLOOD COUNT 5.5 10^3/uL (4.0-10.5)
[2019-10-23 05:07] LABS: ANION GAP 6 (5-19); BLOOD UREA NITROGEN 37 mg/dL (7-20); CALCIUM 8.6 mg/dL (8.4-10.2); CARBON DIOXIDE 22 mmol/L (22-30); CHLORIDE 111 mmol/L (98-107); GLUCOSE 129 mg/dL (75-110); POTASSIUM 4.9 mmol/L (3.6-5.0)
[2019-10-23 05:37] LABS: PLATELET COUNT 50 10^3/uL (150-450)
[2019-10-23] MEDS: NORMAL SALINE 1000 ML 1,000 ML IV PRN (06:51)
--- NOTE | 2019-10-23 07:53 | PDOC PROGRESS REPORT ---
Subjective Progress Note for:: 10/23/19 Subjective:: No acute events overnight. Reviewed coags, INR elev and fibrinogen low. Reason For Visit: PNEUMONIA Physical Exam Vital Signs: Temp Pulse Resp BP Pulse Ox 97.9 F 70 17 117/57 L 99 10/23/19 03:24 10/23/19 03:24 10/23/19 03:24 10/23/19 03:24 10/23/19 04:00 Pulse Oximeter Continuous Start: 10/21/19 18:43 Freq: RTQ4 Status: Active Protocol: Document 10/23/19 04:00 LRO (Rec: 10/23/19 04:24 LRO [id number]) Pulse Oximetry Assessment Oxygen Saturation (92-100) 99 Oxygen Flow Rate (L/min) 2 Oxygen Delivery Method Nasal Cannula Fraction of Inspired Oxygen (FIO2) 28 Equipment Usage Equipment in Use Continuous SpO2 Machine # 4 Intake & Output 10/22/19 10/23/19 10/24/19 06:59 06:59 06:59 Intake Total 272 2765 Output Total 0 300 Balance 272 2465 Weight 51 kg 51 kg General appearance: PRESENT: no acute distress, well-developed, well-nourished Head exam: PRESENT: atraumatic, normocephalic Eye exam: PRESENT: conjunctiva pink, EOMI, PERRLA. ABSENT: scleral icterus Ear exam: PRESENT: normal external ear exam Mouth exam: PRESENT: moist, tongue midline Neck exam: ABSENT: carotid bruit, JVD, lymphadenopathy, thyromegaly Respiratory exam: PRESENT: clear to auscultation khushboo. ABSENT: rales, rhonchi, wheezes Cardiovascular exam: PRESENT: RRR. ABSENT: diastolic murmur, rubs, systolic murmur Pulses: PRESENT: normal dorsalis pedis pul Vascular exam: PRESENT: normal capillary refill GI/Abdominal exam: PRESENT: normal bowel sounds, soft. ABSENT: distended, guarding, mass, organolmegaly, rebound, tenderness Rectal exam: PRESENT: deferred Extremities exam: PRESENT: full ROM. ABSENT: calf tenderness, clubbing, pedal edema Neurological exam: PRESENT: alert, awake, oriented to person, oriented to place, oriented to time, oriented to situation, CN II-XII grossly intact. ABSENT: motor sensory deficit Psychiatric exam: PRESENT: appropriate affect, normal mood. ABSENT: homicidal ideation, suicidal ideation Skin exam: PRESENT: dry, intact, warm. ABSENT: cyanosis, rash Results Laboratory Results: 10/23/19 04:06 10/23/19 04:06 10/22/19 10/23/19 10/23/19 13:05 04:06 04:06 WBC 5.5 RBC 2.71 L Hgb 9.1 L Hct 28.4 L MCV 105 H MCH 33.6 H MCHC 32.1 RDW 22.6 H Plt Count 50 L Seg Neutrophils % 90.2 H Sodium 138.8 Potassium 4.9 Chloride 111 H Carbon Dioxide 22 Anion Gap 6 BUN 37 H Creatinine 1.65 H Est GFR ( Amer) 51 L Glucose 129 H Calcium 8.6 Urine Color NINI Urine Appearance SLIGHTLY-CLOUDY Urine pH 5.0 Ur Specific [place] 1.024 Urine Protein 100 H Urine Glucose (UA) NEGATIVE Urine Ketones NEGATIVE Urine Blood NEGATIVE Urine Nitrite NEGATIVE Ur Leukocyte Esterase NEGATIVE Urine WBC (Auto) 0 Urine RBC (Auto) 2 10/21/19 16:23 Troponin I 0.037 NT-Pro-B Natriuret Pep [id number] H Impressions: Chest X-Ray 10/21/19 16:25 IMPRESSION: Cardiomegaly without pulmonary edema. Chronic lung changes. Chest CT 10/21/19 17:18 IMPRESSION: 1. Pulmonary emphysema. 2. Moderate right pleural effusion with smaller left pleural effusion. 3. Limited airspace disease in the right middle lobe and in the lingula: Pneumonia versus atelectasis. Assessment & Plan - Diagnosis (1) Pancytopenia Is this a current diagnosis for this admission?: Yes Plan: Multifactorial as noted prev. But plt ct likely related in some part to DIC, in some part to possible splenic seq 2nd to intrinsic liver dysfxn 2nd to cardiac cirrhosis. Should improve as infection gets better over time Will follow. If hb <7 or plt <10 would transfuse. - Time Time Spent with patient: 15-24 minutes
--- NOTE | 2019-10-23 09:34 | PDOC PROGRESS REPORT ---
Subjective Progress Note for:: 10/23/19 Subjective:: Plaints. Denies SOB and ROBERTS Reason For Visit: PNEUMONIA Physical Exam Vital Signs: Temp Pulse Resp BP Pulse Ox 98.2 F 73 16 120/66 96 10/23/19 07:41 10/23/19 07:41 10/23/19 07:41 10/23/19 07:41 10/23/19 08:00 Pulse Oximeter Continuous Start: 10/21/19 18:43 Freq: RTQ4 Status: Active Protocol: Document 10/23/19 08:00 [facility] (Rec: 10/23/19 08:31 [facility] [id number]) Pulse Oximetry Assessment Oxygen Saturation (92-100) 96 Oxygen Delivery Method Room Air Equipment Usage Equipment Standby Continuous SpO2 Machine # 4 Intake & Output 10/22/19 10/23/19 10/24/19 06:59 06:59 06:59 Intake Total 272 2765 Output Total 0 300 Balance 272 2465 Weight 51 kg 51 kg General appearance: PRESENT: no acute distress, cooperative, well-developed, well-nourished Head exam: PRESENT: atraumatic, normocephalic Eye exam: PRESENT: conjunctiva pink Mouth exam: PRESENT: moist, tongue midline Neck exam: ABSENT: JVD Respiratory exam: PRESENT: decreased breath sounds - There entry diminished at bases bilaterally with coarse breath sounds, symmetrical, unlabored. ABSENT: accessory muscle use, rales, retraction, rhonchi, tachypnea, wheezes Cardiovascular exam: PRESENT: RRR, +S1, +S2 Pulses: PRESENT: normal carotid pulses, normal radial pulses GI/Abdominal exam: PRESENT: normal bowel sounds, soft. ABSENT: distended, guarding, rebound, tenderness Rectal exam: PRESENT: deferred Extremities exam: PRESENT: full ROM. ABSENT: calf tenderness, pedal edema Musculoskeletal exam: PRESENT: ambulatory Neurological exam: PRESENT: alert, awake, oriented to person, oriented to place, oriented to time, oriented to situation, CN II-XII grossly intact Psychiatric exam: PRESENT: appropriate affect, normal mood. ABSENT: agitated, anxious Skin exam: PRESENT: dry, normal color, warm, other. ABSENT: petechiae Results Laboratory Results: 10/23/19 04:06 10/23/19 04:06 10/22/19 10/23/19 10/23/19 13:05 04:06 04:06 WBC 5.5 RBC 2.71 L Hgb 9.1 L Hct 28.4 L MCV 105 H MCH 33.6 H MCHC 32.1 RDW 22.6 H Plt Count 50 L Seg Neutrophils % 90.2 H Sodium 138.8 Potassium 4.9 Chloride 111 H Carbon Dioxide 22 Anion Gap 6 BUN 37 H Creatinine 1.65 H Est GFR ( Amer) 51 L Glucose 129 H Calcium 8.6 Urine Color NINI Urine Appearance SLIGHTLY-CLOUDY Urine pH 5.0 Ur Specific [place] 1.024 Urine Protein 100 H Urine Glucose (UA) NEGATIVE Urine Ketones NEGATIVE Urine Blood NEGATIVE Urine Nitrite NEGATIVE Ur Leukocyte Esterase NEGATIVE Urine WBC (Auto) 0 Urine RBC (Auto) 2 10/21/19 16:23 Troponin I 0.037 NT-Pro-B Natriuret Pep [id number] H Impressions: Chest X-Ray 10/21/19 16:25 IMPRESSION: Cardiomegaly without pulmonary edema. Chronic lung changes. Chest CT 10/21/19 17:18 IMPRESSION: 1. Pulmonary emphysema. 2. Moderate right pleural effusion with smaller left pleural effusion. 3. Limited airspace disease in the right middle lobe and in the lingula: Pneumonia versus atelectasis. Assessment and Plan - Diagnosis (1) Acute respiratory failure with hypoxia Is this a current diagnosis for this admission?: Yes Plan: Patient satting well on room air this a.m. Him to keep patient on room air Continue dexamethasone 4 mg IV every 12 hours Continue albuterol HFA 2 puffs every 4 hours Continue albuterol nebs every 6 hours as needed Continue guaifenesin 200 mg p.o. every 4 hours as needed cough SARS-CoV-2 pending Continue ascorbic acid, zinc, vitamin D, and melatonin (2) Pneumonia Is this a current diagnosis for this admission?: Yes Plan: CT chest 10/21/2019: Pulmonary emphysema, moderate right pleural effusion with small left pleural effusion, limited airspace disease in the right middle lobe in the lung lingula (pneumonia versus atelectasis) Continue current antibiotics (azithromycin 500 mg IV daily/ceftriaxone 1 g IV daily) Further treatment as noted above Blood cultures 10/21/19: NG at 24h (3) Pleural effusion Is this a current diagnosis for this admission?: Yes Plan: No tx indicated at this time If patient's respiratory status deteriorates recheck CXR to evaluate for need for thoracentesis (4) COPD (chronic obstructive pulmonary disease) Is this a current diagnosis for this admission?: Yes Plan: Does not appear to be acute COPD exacerbation Management as noted above (5) Tobacco dependence Is this a current diagnosis for this admission?: Yes Plan: Cessation counseling reinforced Continue nicotine patch (6) Thrombocytopenia Is this a current diagnosis for this admission?: Yes Plan: No obvious sign of hemorrhage or thrombosis Anticoagulation stopped on 10/22/2019 Hematology input appreciated, thrombocytopenia thought to be multifactorial but related in some part to DIC and possible splenic sequestration 2/2 intrinsic liver dysfunction/cardiac cirrhosis Per hematology we will continue to hold anticoagulation until platelet count is stable above 50 K There is no need to transfuse platelets unless platelet count less than 10 K (7) Anemia Is this a current diagnosis for this admission?: Yes Plan: No obvious sign of active hemorrhage H/H overall stable Hematology input appreciated - Time Time Spent with patient: 25-34 minutes Medications reviewed and adjusted accordingly: Yes Anticipated discharge: Home Within: Other
[2019-10-23] MEDS: ZINC SULFATE 220 MG CAPSULE PO SCH (09:58)
[2019-10-23] MEDS: DEXAMETHASONE SOD PHOSPHATE INJ 4 MG/1 ML VIAL IV SCH ×2 (09:58→22:49)
[2019-10-23] MEDS: ASCORBIC ACID 500 MG TABLET PO SCH ×2 (09:59→17:02)
[2019-10-23] MEDS: NICOTINE 14 MG/24 HR PATCH.TD24 TD SCH (09:59)
[2019-10-23] MEDS: CHOLECALCIFEROL (D3) 1,000 UNIT (25 MCG) TABLET PO SCH (09:59)
[2019-10-23] MEDS: ALBUTEROL SULFATE 0.083% NEB 2.5 MG/3 ML AMPUL NEB PRN ×2 (13:40→23:22)
[2019-10-23] MEDS ORDERED: (PENDING PHARMACY ID) (Albuterol Sulfate 2 PUFF) IH PRN (14:50)
[2019-10-23] MEDS ORDERED: ALBUTEROL SULFATE HFA (90 MCG/PUFF) 200 PUFF/8.5 GM MDI IH PRN (15:02)
--- NOTE | 2019-10-23 15:25 | RADIOLOGY REPORT (SQ) ---
EXAM DESCRIPTION: CHEST SINGLE VIEW IMAGES COMPLETED DATE/TIME: 10/23/2019 1:21 pm REASON FOR STUDY: SOB COMPARISON: CT chest, 10/21/2019. Chest radiograph, 10/21/2019. EXAM PARAMETERS: NUMBER OF VIEWS: One view. TECHNIQUE: Single frontal radiographic view of the chest acquired. RADIATION DOSE: NA LIMITATIONS: None. FINDINGS: LUNGS AND PLEURA: Persistent small bilateral pleural effusions. Fluid in the right fissur e. Mild patchy opacification in the right mid lung and lower lung probably atelectasis. The lungs a re hyperinflated. No pneumothorax. MEDIASTINUM AND HILAR STRUCTURES: No masses. Contour normal. HEART AND VASCULAR STRUCTURES: Heart normal in size. Normal vasculature. BONES: No acute findings. HARDWARE: None in the chest. OTHER: No other significant finding. IMPRESSION: Small bilateral pleural effusions are stable. Compressive atelectasis in the right mid lung and right lung base, stable. Background moderate pulmonary emphysema is unchanged. TECHNICAL DOCUMENTATION: JOB ID: [id number] 2010 [employer]- All Rights Reserved Reading location - IP/workstation name: [email or web address]
[2019-10-23] MEDS ORDERED: CLOPIDOGREL BISULFATE 75 MG TABLET PO SCH (16:00)
[2019-10-23] MEDS: DIGOXIN 0.25 MG TABLET PO SCH (16:06)
[2019-10-23] MEDS: CEFTRIAXONE 1 GM/D5W RTU 1 GM/50 ML RTUPB IV SCH (17:06)
[2019-10-23] MEDS ORDERED: (PENDING PHARMACY ID) (Carvedilol [Carvedilol] 25 MG) PO SCH (18:00)
[2019-10-23] MEDS ORDERED: (PENDING PHARMACY ID) (Rosuvastatin Calcium [Crestor] 20 MG) PO SCH (22:00)
[2019-10-23] MEDS: ATORVASTATIN CALCIUM 40 MG TABLET PO SCH (22:48)
[2019-10-23] MEDS: MELATONIN 3 MG TABLET PO SCH (22:48)
[2019-10-23] MEDS: CARVEDILOL 12.5 MG TABLET PO SCH (22:48)
[2019-10-23] MEDS: AZITHROMYCIN 500 MG in DEXTROSE 5%-WATER 250 ML IV SCH (22:52)
[2019-10-24] MEDS ORDERED: MAG HYDROX/AL HYDROX/SIMETH SUSP 30 ML UDCUP PO PRN (01:30)
[2019-10-24 05:13] LABS: HEMATOCRIT 26.8 % (37.9-51.0); HEMOGLOBIN 8.7 g/dL (13.5-17.0); MEAN CORPUSCULAR HEMOGLOBIN 34.2 pg (27.0-33.4); MEAN CORPUSCULAR HGB CONC 32.6 g/dL (32.0-36.0); MEAN CORPUSCULAR VOLUME 105 fl (80-97); RED BLOOD COUNT 2.56 10^6/uL (4.35-5.55); RED CELL DISTRIBUTION WIDTH 22.4 % (11.5-14.0); WHITE BLOOD COUNT 6.7 10^3/uL (4.0-10.5)
[2019-10-24 05:14] LABS: PLATELET COUNT 47 10^3/uL (150-450)
[2019-10-24 05:28] LABS: ABSOLUTE LYMPHOCYTES# (MANUAL) 0.2 10^3/uL (0.5-4.7); ABSOLUTE MONOCYTES # (MANUAL) 0.1 10^3/uL (0.1-1.4); BASOPHILS % (MANUAL) 0 % (0-2); EOSINOPHILS % (MANUAL) 0 % (0-6); LYMPHOCYTES % (MANUAL) 3 % (13-45); MONOCYTES % (MANUAL) 2 % (3-13); SEGMENTED NEUTROPHILS % (MAN) 95 % (42-78); TOTAL CELLS COUNTED 100
[2019-10-24 05:30] LABS: ANISOCYTOSIS 3+; OVALOCYTES SLIGHT; PLATELET COMMENT DECREASED; POIKILOCYTOSIS SLIGHT; POLYCHROMASIA SLIGHT; TOXIC VACUOLATION PRESENT
[2019-10-24 05:32] LABS: ALBUMIN 2.8 g/dL (3.5-5.0); ALKALINE PHOSPHATASE 109 U/L (38-126); ANION GAP 5 (5-19); ASPARTATE AMINO TRANSFERASE 62 U/L (17-59); BILIRUBIN,DIRECT 0.2 mg/dL (0.0-0.4); BILIRUBIN,TOTAL 0.5 mg/dL (0.2-1.3); BLOOD UREA NITROGEN 43 mg/dL (7-20); CALCIUM 8.8 mg/dL (8.4-10.2); CARBON DIOXIDE 23 mmol/L (22-30); CHLORIDE 110 mmol/L (98-107); GLUCOSE 112 mg/dL (75-110); POTASSIUM 5.1 mmol/L (3.6-5.0); TOTAL PROTEIN 5.5 g/dL (6.3-8.2)
--- NOTE | 2019-10-24 08:07 | PDOC PROGRESS REPORT ---
Subjective Progress Note for:: 10/24/19 Subjective:: No acute events overnight, feeling better today Reason For Visit: PNEUMONIA Physical Exam Vital Signs: Temp Pulse Resp BP Pulse Ox 97.5 F 79 18 156/86 H 100 10/23/19 23:12 10/24/19 07:00 10/23/19 23:22 10/23/19 23:12 10/24/19 04:30 Pulse Oximeter Continuous Start: 10/21/19 18:43 Freq: RTQ4 Status: Active Protocol: Document 10/24/19 04:30 DBE (Rec: 10/24/19 05:11 DBE [id number]) Pulse Oximetry Assessment Oxygen Saturation (92-100) 100 Oxygen Flow Rate (L/min) 2 Oxygen Delivery Method Nasal Cannula Fraction of Inspired Oxygen (FIO2) 28 Equipment Usage Equipment in Use Continuous Pulse Oximeter 24 Hour Charge Charge Now Continuous SpO2 Machine # 4 Intake & Output 10/23/19 10/24/19 10/25/19 06:59 06:59 06:59 Intake Total 2765 1370 250 Output Total 300 Balance 2465 1370 250 Weight 51 kg 59.2 kg General appearance: PRESENT: no acute distress, well-developed, well-nourished Head exam: PRESENT: atraumatic, normocephalic Eye exam: PRESENT: conjunctiva pink, EOMI, PERRLA. ABSENT: scleral icterus Ear exam: PRESENT: normal external ear exam Mouth exam: PRESENT: moist, tongue midline Neck exam: ABSENT: carotid bruit, JVD, lymphadenopathy, thyromegaly Respiratory exam: PRESENT: clear to auscultation khushboo. ABSENT: rales, rhonchi, wheezes Cardiovascular exam: PRESENT: RRR. ABSENT: diastolic murmur, rubs, systolic murmur Pulses: PRESENT: normal dorsalis pedis pul Vascular exam: PRESENT: normal capillary refill GI/Abdominal exam: PRESENT: normal bowel sounds, soft. ABSENT: distended, guarding, mass, organolmegaly, rebound, tenderness Rectal exam: PRESENT: deferred Extremities exam: PRESENT: full ROM. ABSENT: calf tenderness, clubbing, pedal edema Neurological exam: PRESENT: alert, awake, oriented to person, oriented to place, oriented to time, oriented to situation, CN II-XII grossly intact. ABSENT: motor sensory deficit Psychiatric exam: PRESENT: appropriate affect, normal mood. ABSENT: homicidal ideation, suicidal ideation Skin exam: PRESENT: dry, intact, warm. ABSENT: cyanosis, rash Results Laboratory Results: 10/24/19 04:13 10/24/19 04:13 10/24/19 10/24/19 04:13 04:13 WBC 6.7 RBC 2.56 L Hgb 8.7 L Hct 26.8 L MCV 105 H MCH 34.2 H MCHC 32.6 RDW 22.4 H Plt Count 47 L Seg Neutrophils % Not Reportable Sodium 137.5 Potassium 5.1 H Chloride 110 H Carbon Dioxide 23 Anion Gap 5 BUN 43 H Creatinine 1.54 H Est GFR ( Amer) 55 L Glucose 112 H Calcium 8.8 Total Bilirubin 0.5 AST 62 H Alkaline Phosphatase 109 Total Protein 5.5 L Albumin 2.8 L 10/21/19 16:23 Troponin I 0.037 NT-Pro-B Natriuret Pep [id number] H Impressions: Chest CT 10/21/19 17:18 IMPRESSION: 1. Pulmonary emphysema. 2. Moderate right pleural effusion with smaller left pleural effusion. 3. Limited airspace disease in the right middle lobe and in the lingula: Pneumonia versus atelectasis. Chest X-Ray 10/23/19 00:00 IMPRESSION: Small bilateral pleural effusions are stable. Compressive atelectasis in the right mid lung and right lung base, stable. Background moderate pulmonary emphysema is unchanged. Assessment & Plan - Diagnosis (1) Pancytopenia Is this a current diagnosis for this admission?: Yes Plan: Multifactorial, counts stable today. - Time Time Spent with patient: 15-24 minutes
[2019-10-24] MEDS: DIGOXIN 0.25 MG TABLET PO SCH (09:46)
[2019-10-24] MEDS: ISOSORBIDE MONONITRATE 30 MG TAB.ER.24H PO SCH (09:46)
[2019-10-24] MEDS: NICOTINE 14 MG/24 HR PATCH.TD24 TD SCH (09:46)
[2019-10-24] MEDS: ZINC SULFATE 220 MG CAPSULE PO SCH (09:46)
[2019-10-24] MEDS: CHOLECALCIFEROL (D3) 1,000 UNIT (25 MCG) TABLET PO SCH (09:46)
[2019-10-24] MEDS: CARVEDILOL 12.5 MG TABLET PO SCH ×2 (09:47→21:40)
[2019-10-24] MEDS: ASCORBIC ACID 500 MG TABLET PO SCH ×2 (09:47→17:20)
[2019-10-24] MEDS: DEXAMETHASONE SOD PHOSPHATE INJ 4 MG/1 ML VIAL IV SCH ×2 (09:47→21:41)
[2019-10-24] MEDS ORDERED: VALSARTAN 80 MG TABLET PO SCH (10:00)
[2019-10-24] MEDS ORDERED: (PENDING PHARMACY ID) (Tiotropium Br/Olodaterol Hcl [Stiolto Respimat Inhal Spray] 2 PUFF) IH SCH (10:00)
[2019-10-24] MEDS: VALSARTAN 40 MG TABLET PO SCH (10:13)
[2019-10-24] MEDS: CEFTRIAXONE 1 GM/D5W RTU 1 GM/50 ML RTUPB IV SCH (17:20)
[2019-10-24] MEDS: MELATONIN 3 MG TABLET PO SCH (21:40)
[2019-10-24] MEDS: ATORVASTATIN CALCIUM 40 MG TABLET PO SCH (21:41)
[2019-10-24] MEDS: AZITHROMYCIN 500 MG in DEXTROSE 5%-WATER 250 ML IV SCH (21:41)
--- NOTE | 2019-10-24 22:00 | PDOC PROGRESS REPORT ---
Subjective Progress Note for:: 10/24/19 Subjective:: Patient had SOB yesterday however today states that his breathing has improved Reason For Visit: PNEUMONIA Physical Exam Vital Signs: Temp Pulse Resp BP Pulse Ox 97.6 F 67 18 144/77 H 94 10/24/19 19:46 10/24/19 19:46 10/24/19 19:46 10/24/19 19:46 10/24/19 20:38 Pulse Oximeter Continuous Start: 10/21/19 18:43 Freq: RTQ4 Status: Active Protocol: Document 10/24/19 20:38 DBE (Rec: 10/24/19 20:40 DBE [email or web address]) Pulse Oximetry Assessment Oxygen Saturation (92-100) 94 Oxygen Delivery Method Room Air Fraction of Inspired Oxygen (FIO2) 21 Equipment Usage Equipment in Use Continuous SpO2 Machine # 4 Intake & Output 10/23/19 10/24/19 10/25/19 06:59 06:59 06:59 Intake Total 2765 1370 1350 Output Total 300 500 Balance 2465 1370 850 Weight 51 kg 59.2 kg General appearance: PRESENT: no acute distress, cooperative, well-developed, well-nourished Head exam: PRESENT: atraumatic, normocephalic Eye exam: PRESENT: conjunctiva pink Mouth exam: PRESENT: moist, tongue midline Neck exam: ABSENT: JVD Respiratory exam: PRESENT: clear to auscultation khushboo, decreased breath sounds - Air entry diminished at bases bilaterally, symmetrical, unlabored. ABSENT: accessory muscle use, retraction Cardiovascular exam: PRESENT: RRR, +S1, +S2 Vascular exam: PRESENT: normal capillary refill GI/Abdominal exam: PRESENT: normal bowel sounds, soft. ABSENT: distended, tenderness Rectal exam: PRESENT: deferred Extremities exam: ABSENT: calf tenderness, clubbing, pedal edema Musculoskeletal exam: PRESENT: ambulatory Neurological exam: PRESENT: alert, awake, oriented to person, oriented to place, oriented to time, oriented to situation, CN II-XII grossly intact Psychiatric exam: ABSENT: agitated Skin exam: PRESENT: dry, normal color, warm Results Laboratory Results: 10/24/19 04:13 10/24/19 04:13 10/24/19 10/24/19 04:13 04:13 WBC 6.7 RBC 2.56 L Hgb 8.7 L Hct 26.8 L MCV 105 H MCH 34.2 H MCHC 32.6 RDW 22.4 H Plt Count 47 L Seg Neutrophils % Not Reportable Sodium 137.5 Potassium 5.1 H Chloride 110 H Carbon Dioxide 23 Anion Gap 5 BUN 43 H Creatinine 1.54 H Est GFR ( Amer) 55 L Glucose 112 H Calcium 8.8 Total Bilirubin 0.5 AST 62 H Alkaline Phosphatase 109 Total Protein 5.5 L Albumin 2.8 L 10/21/19 16:23 Troponin I 0.037 NT-Pro-B Natriuret Pep 85245 H Impressions: Chest CT 10/21/19 17:18 IMPRESSION: 1. Pulmonary emphysema. 2. Moderate right pleural effusion with smaller left pleural effusion. 3. Limited airspace disease in the right middle lobe and in the lingula: Pneumonia versus atelectasis. Chest X-Ray 10/23/19 00:00 IMPRESSION: Small bilateral pleural effusions are stable. Compressive atel ectasis in the right mid lung and right lung base, stable. Background moderate pulmonary emphysema is unchanged. Assessment and Plan - Diagnosis (1) Acute respiratory failure with hypoxia Is this a current diagnosis for this admission?: Yes Plan: Patient had episode of acute shortness of breath yesterday with mild desaturation necessitating supplemental O2 No further SOB today Decrease dexamethasone to 2 mg IV every 12 hours Continue albuterol HFA 2 puffs every 4 hours Continue albuterol nebs every 6 hours as needed Continue guaifenesin 200 mg p.o. every 4 hours as needed cough SARS-CoV-2 negative Stop ascorbic acid, zinc, vitamin D, and melatonin (2) Pneumonia Is this a current diagnosis for this admission?: Yes Plan: CT chest 10/21/2019: Pulmonary emphysema, moderate right pleural effusion with small left pleural effusion, limited airspace disease in the right middle lobe in the lung lingula (pneumonia versus atelectasis) Stop azithromycin, patient has had 3 days of tx Continue ceftriaxone 1 g IV daily for now Further treatment as noted above Blood cultures 10/21/19: NG at 72 hours (3) Pleural effusion Is this a current diagnosis for this admission?: Yes Plan: No tx indicated at this time CXR in a.m. (4) COPD (chronic obstructive pulmonary disease) Is this a current diagnosis for this admission?: Yes Plan: Does not appear to be acute COPD exacerbation Management as noted above (5) Tobacco dependence Is this a current diagnosis for this admission?: Yes Plan: Cessation counseling reinforced Continue nicotine patch (6) Thrombocytopenia Is this a current diagnosis for this admission?: Yes Plan: No obvious sign of hemorrhage or thrombosis Anticoagulation stopped on 10/22/2019 Hematology input appreciated, thrombocytopenia thought to be multifactorial but related in some part to DIC and possible splenic sequestration 2/2 intrinsic liver dysfunction/cardiac cirrhosis Per hematology we will continue to hold anticoagulation until platelet count is stable above 50 K There is no need to transfuse platelets unless platelet count less than 10 K (7) Anemia Is this a current diagnosis for this admission?: Yes Plan: No obvious sign of active hemorrhage Slow downward trend in H/H Hematology input appreciated - Time Time Spent with patient: 25-34 minutes Medications reviewed and adjusted accordingly: Yes Anticipated Discharge Disposition: Home, Self Care Anticipated Discharge: Other
[2019-10-25 06:56] LABS: HEMATOCRIT 25.5 % (37.9-51.0); HEMOGLOBIN 8.2 g/dL (13.5-17.0); MEAN CORPUSCULAR HEMOGLOBIN 33.5 pg (27.0-33.4); MEAN CORPUSCULAR HGB CONC 32.1 g/dL (32.0-36.0); MEAN CORPUSCULAR VOLUME 105 fl (80-97); RED BLOOD COUNT 2.44 10^6/uL (4.35-5.55); RED CELL DISTRIBUTION WIDTH 21.8 % (11.5-14.0); WHITE BLOOD COUNT 5.6 10^3/uL (4.0-10.5)
[2019-10-25 07:10] LABS: BLOOD UREA NITROGEN 43 mg/dL (7-20); CALCIUM 8.7 mg/dL (8.4-10.2); GLUCOSE 104 mg/dL (75-110); POTASSIUM 4.9 mmol/L (3.6-5.0)
[2019-10-25 07:11] LABS: PLATELET COUNT 46 10^3/uL (150-450)
[2019-10-25 07:14] LABS: ABSOLUTE LYMPHOCYTES# (MANUAL) 0.2 10^3/uL (0.5-4.7); ABSOLUTE MONOCYTES # (MANUAL) 0.1 10^3/uL (0.1-1.4); BASOPHILS % (MANUAL) 0 % (0-2); EOSINOPHILS % (MANUAL) 0 % (0-6); LYMPHOCYTES % (MANUAL) 3 % (13-45); MONOCYTES % (MANUAL) 1 % (3-13); SEGMENTED NEUTROPHILS % (MAN) 96 % (42-78); TOTAL CELLS COUNTED 100
[2019-10-25 07:16] LABS: ANISOCYTOSIS 3+; CARBON DIOXIDE 25 mmol/L (22-30); CHLORIDE 111 mmol/L (98-107); OVALOCYTES 1+; PLATELET COMMENT DECREASED; POIKILOCYTOSIS 1+
[2019-10-25 07:19] LABS: ANION GAP 0 (5-19)
--- NOTE | 2019-10-25 08:09 | RADIOLOGY REPORT (SQ) ---
EXAM DESCRIPTION: CHEST SINGLE VIEW IMAGES COMPLETED DATE/TIME: 10/25/2019 7:54 am REASON FOR STUDY: Pleural effusion COMPARISON: 10/23/2019 FINDINGS: One-view chest AP portable upright. Lungs are hyperinflated generally. No pneumothorax. Progressive right mid-basilar airspace disease over the past 2 days. Compatible with worsening pneum onia. No large effusions. Cardiomegaly looks stable. Pacer in place as before. TECHNICAL DOCUMENTATION: JOB ID: [id number] Reading location - IP/workstation name: [email or web address]
[2019-10-25] MEDS: CARVEDILOL 12.5 MG TABLET PO SCH ×2 (09:02→21:43)
[2019-10-25] MEDS: ISOSORBIDE MONONITRATE 30 MG TAB.ER.24H PO SCH (09:02)
[2019-10-25] MEDS: VALSARTAN 40 MG TABLET PO SCH (09:02)
[2019-10-25] MEDS: DIGOXIN 0.25 MG TABLET PO SCH (09:02)
[2019-10-25] MEDS: NICOTINE 14 MG/24 HR PATCH.TD24 TD SCH (09:03)
[2019-10-25] MEDS ORDERED: DEXAMETHASONE SOD PHOSPHATE INJ 4 MG/1 ML VIAL IV SCH (10:00)
--- NOTE | 2019-10-25 10:45 | PDOC PROGRESS REPORT ---
Subjective Progress Note for:: 10/25/19 Subjective:: No acute events overnight. Reason For Visit: PNEUMONIA Physical Exam Vital Signs: Temp Pulse Resp BP Pulse Ox 97.5 F 76 16 125/72 96 10/24/19 23:26 10/25/19 08:00 10/25/19 08:00 10/24/19 23:26 10/25/19 08:00 Pulse Oximeter Continuous Start: 10/21/19 18:43 Freq: RTQ4 Status: Active Protocol: Document 10/25/19 08:00 LDA (Rec: 10/25/19 09:48 LDA [email or web address]) Pulse Oximetry Assessment Oxygen Saturation (92-100) 96 Oxygen Flow Rate (L/min) 2 Oxygen Delivery Method Nasal Cannula Fraction of Inspired Oxygen (FIO2) 28 Equipment Usage Equipment in Use Continuous SpO2 Machine # n-4 Intake & Output 10/24/19 10/25/19 10/26/19 06:59 06:59 06:59 Intake Total 1370 1350 Output Total 500 Balance 1370 850 Weight 59.2 kg 59.3 kg General appearance: PRESENT: no acute distress, well-developed, well-nourished Head exam: PRESENT: atraumatic, normocephalic Eye exam: PRESENT: conjunctiva pink, EOMI, PERRLA. ABSENT: scleral icterus Ear exam: PRESENT: normal external ear exam Mouth exam: PRESENT: moist, tongue midline Neck exam: ABSENT: carotid bruit, JVD, lymphadenopathy, thyromegaly Respiratory exam: PRESENT: clear to auscultation khushboo. ABSENT: rales, rhonchi, wheezes Cardiovascular exam: PRESENT: RRR. ABSENT: diastolic murmur, rubs, systolic murmur Pulses: PRESENT: normal dorsalis pedis pul Vascular exam: PRESENT: normal capillary refill GI/Abdominal exam: PRESENT: normal bowel sounds, soft. ABSENT: distended, guar ding, mass, organolmegaly, rebound, tenderness Rectal exam: PRESENT: deferred Extremities exam: PRESENT: full ROM. ABSENT: calf tenderness, clubbing, pedal edema Neurological exam: PRESENT: alert, awake, oriented to person, oriented to place, oriented to time, oriented to situation, CN II-XII grossly intact. ABSENT: motor sensory deficit Psychiatric exam: PRESENT: appropriate affect, normal mood. ABSENT: homicidal ideation, suicidal ideation Skin exam: PRESENT: dry, intact, warm. ABSENT: cyanosis, rash Results Laboratory Results: 10/25/19 06:15 10/25/19 06:15 10/25/19 10/25/19 06:15 06:15 WBC 5.6 RBC 2.44 L Hgb 8.2 L Hct 25.5 L MCV 105 H MCH 33.5 H MCHC 32.1 RDW 21.8 H Plt Count 46 L Seg Neutrophils % Not Reportable Sodium 136.0 L Potassium 4.9 Chloride 111 H Carbon Dioxide 25 Anion Gap 0 L BUN 43 H Creatinine 1.27 H Est GFR ( Amer) > 60 Glucose 104 Calcium 8.7 10/21/19 16:23 Troponin I 0.037 NT-Pro-B Natriuret Pep 27979 H Impressions: Chest CT 10/21/19 17:18 IMPRESSION: 1. Pulmonary emphysema. 2. Moderate right pleural effusion with smaller left pleural effusion. 3. Limited airspace disease in the right middle lobe and in the lingula: Pneumonia versus atelectasis. Assessment & Plan - Diagnosis (1) Pancytopenia Is this a current diagnosis for this admission?: Yes Plan: Multifactorial as noted previously secondary to DIC as well as cardiac cirrhosis, counts are stable, still would hold any anticoagulation, when he is medically ready for discharge we can follow him as an outpatient. Otherwise, will follow peripherally while admitted. Transfuse packed red blood cell if hemoglobin gets under 7, transfuse platelets if under 10 or if patient actively bleeding. - Time Time Spent with patient: 35 or more minutes
--- NOTE | 2019-10-25 14:15 | PDOC PROGRESS REPORT ---
Subjective Progress Note for:: 10/25/19 Subjective:: Patient complains of worsening productive cough Reason For Visit: PNEUMONIA Physical Exam Vital Signs: Temp Pulse Resp BP Pulse Ox 97.5 F 76 16 125/72 96 10/24/19 23:26 10/25/19 08:00 10/25/19 08:00 10/24/19 23:26 10/25/19 08:00 Pulse Oximeter Continuous Start: 10/21/19 18:43 Freq: RTQ4 Status: Active Protocol: Document 10/25/19 08:00 LDA (Rec: 10/25/19 09:48 LDA [email or web address]) Pulse Oximetry Assessment Oxygen Saturation (92-100) 96 Oxygen Flow Rate (L/min) 2 Oxygen Delivery Method Nasal Cannula Fraction of Inspired Oxygen (FIO2) 28 Equipment Usage Equipment in Use Continuous SpO2 Machine # n-4 Intake & Output 10/24/19 10/25/19 10/26/19 06:59 06:59 06:59 Intake Total 1370 1350 Output Total 500 Balance 1370 850 Weight 59.2 kg 59.3 kg General appearance: PRESENT: no acute distress, cooperative, well-developed, well-nourished Head exam: PRESENT: atraumatic, normocephalic Eye exam: PRESENT: conjunctiva pink Mouth exam: PRESENT: moist, tongue midline Neck exam: ABSENT: JVD Respiratory exam: PRESENT: decreased breath sounds - Air entry diminished at bases bilaterally, prolonged expiratory phas, rhonchi, symmetrical, unlabored, wheezes, other - Productive cough. ABSENT: accessory muscle use Cardiovascular exam: PRESENT: RRR, +S1, +S2 Pulses: PRESENT: normal radial pulses Vascular exam: PRESENT: normal capillary refill GI/Abdominal exam: PRESENT: normal bowel sounds, soft. ABSENT: distended, tenderness Rectal exam: PRESENT: deferred Extremities exam: PRESENT: full ROM. ABSENT: calf tenderness, pedal edema Musculoskeletal exam: PRESENT: ambulatory Neurological exam: PRESENT: alert, altered, awake, oriented to person, oriented to place, oriented to time, oriented to situation, CN II-XII grossly intact Psychiatric exam: PRESENT: appropriate affect, normal mood. ABSENT: agitated, anxious Skin exam: PRESENT: intact, normal color, warm Results Laboratory Results: 10/25/19 06:15 10/25/19 06:15 10/25/19 10/25/19 06:15 06:15 WBC 5.6 RBC 2.44 L Hgb 8.2 L Hct 25.5 L MCV 105 H MCH 33.5 H MCHC 32.1 RDW 21.8 H Plt Count 46 L Seg Neutrophils % Not Reportable Sodium 136.0 L Potassium 4.9 Chloride 111 H Carbon Dioxide 25 Anion Gap 0 L BUN 43 H Creatinine 1.27 H Est GFR ( Amer) > 60 Glucose 104 Calcium 8.7 10/21/19 16:23 Troponin I 0.037 NT-Pro-B Natriuret Pep 49077 H Impressions: Chest CT 10/21/19 17:18 IMPRESSION: 1. Pulmonary emphysema. 2. Moderate right pleural effusion with smaller left pleural effusion. 3. Limited airspace disease in the right middle lobe and in the lingula: Pneumonia versus atelectasis. Assessment and Plan - Diagnosis (1) Acute respiratory failure with hypoxia Is this a current diagnosis for this admission?: Yes Plan: Patient has productive cough today Mild desaturation overnight necessitating supplemental oxygen Continue dexamethasone to 2 mg IV every 12 hours Continue albuterol HFA 2 puffs every 4 hours Continue albuterol nebs every 6 hours as needed Continue guaifenesin 200 mg p.o. every 4 hours as needed cough SARS-CoV-2 negative Stop ascorbic acid, zinc, vitamin D, and melatonin (2) Pneumonia Is this a current diagnosis for this admission?: Yes Plan: CT chest 10/21/2019: Pulmonary emphysema, moderate right pleural effusion with small left pleural effusion, limited airspace disease in the right middle lobe in the lung lingula (pneumonia versus atelectasis) CXR 10/25/19: Lungs are hyperinflated. No pneumothorax. Progressive right mid- basilar airspace disease over past 2 days, compatible with worsening pneumonia. No large effusions. Stable cardiomegaly. Pacer in place Sputum culture Azithromycin dropped after 3 days tx Continue ceftriaxone 1 g IV daily Add doxycycline 100 mg IV every 12 hours Blood cultures 10/21/19: NG at 72 hours (3) Pleural effusion Is this a current diagnosis for this admission?: Yes Plan: No tx indicated at this time (4) COPD (chronic obstructive pulmonary disease) Is this a current diagnosis for this admission?: Yes Plan: Does not appear to be acute COPD exacerbation Stop steroids (5) Tobacco dependence Is this a current diagnosis for this admission?: Yes Plan: Continue nicotine patch (6) Thrombocytopenia Is this a current diagnosis for this admission?: Yes Plan: No obvious sign of hemorrhage or thrombosis Anticoagulation stopped on 10/22/2019 Hematology input appreciated, thrombocytopenia thought to be multifactorial but related in some part to DIC and possible splenic sequestration 2/2 intrinsic liver dysfunction/cardiac cirrhosis Per hematology we will continue to hold anticoagulation until platelet count is stable above 50 K There is no need to transfuse platelets unless platelet count less than 10 K (7) Anemia Is this a current diagnosis for this admission?: Yes Plan: No obvious sign of active hemorrhage Slow downward trend in H/H Hematology input appreciated Transfuse PRBCs for Hgb <7.0 - Time Time Spent with patient: 25-34 minutes Medications reviewed and adjusted accordingly: Yes Anticipated Discharge Disposition: Home, Self Care Anticipated Discharge: Other
[2019-10-25 15:13] LABS: APPEARANCE,URINE CLEAR; BILIRUBIN,URINE NEGATIVE (NEGATIVE); COLOR,URINE YELLOW; GLUCOSE, URINE NEGATIVE (NEGATIVE); KETONES,URINE NEGATIVE (NEGATIVE); LEUKOCYTE ESTERASE,URINE NEGATIVE (NEGATIVE); NITRITE,URINE NEGATIVE (NEGATIVE); PROTEIN,URINE NEGATIVE (NEGATIVE); URINE SPECIFIC GRAVITY 1.017; UROBILINOGEN,URINE NEGATIVE mg/dL (<2.0)
[2019-10-25] MEDS: DOXYCYCLINE HYCLATE 100 MG in DEXTROSE 5%-WATER 250 ML IV SCH (17:51)
[2019-10-25] MEDS: CEFTRIAXONE 1 GM/D5W RTU 1 GM/50 ML RTUPB IV SCH (17:56)
[2019-10-25] MEDS: ATORVASTATIN CALCIUM 40 MG TABLET PO SCH (21:43)
[2019-10-26] MEDS: DOXYCYCLINE HYCLATE 100 MG in DEXTROSE 5%-WATER 250 ML IV SCH ×3 (00:08→22:21)
[2019-10-26 06:24] LABS: ABSOLUTE LYMPHOCYTES (AUTO) 0.5 10^3/uL (0.5-4.7); ABSOLUTE MONOCYTES (AUTO) 0.4 10^3/uL (0.1-1.4); ABSOLUTE NEUT (AUTO) 5.7 10^3/uL (1.7-8.2); BASOPHILS % (AUTO) 0.1 % (0-2); HEMATOCRIT 25.3 % (37.9-51.0); HEMOGLOBIN 8.4 g/dL (13.5-17.0); LYMPHOCYTES % (AUTO) 6.9 % (13-45); MEAN CORPUSCULAR HEMOGLOBIN 34.1 pg (27.0-33.4); MEAN CORPUSCULAR VOLUME 103 fl (80-97); MONOCYTES % (AUTO) 6.4 % (3-13); RED BLOOD COUNT 2.45 10^6/uL (4.35-5.55); RED CELL DISTRIBUTION WIDTH 21.7 % (11.5-14.0); SEGMENTED NEUTROPHILS % (AUTO) 86.6 % (42-78); TOTAL CELLS COUNTED % (AUTO) 100 %; WHITE BLOOD COUNT 6.6 10^3/uL (4.0-10.5)
[2019-10-26 06:45] LABS: BLOOD UREA NITROGEN 45 mg/dL (7-20); CALCIUM 8.5 mg/dL (8.4-10.2); GLUCOSE 83 mg/dL (75-110); POTASSIUM 4.7 mmol/L (3.6-5.0)
[2019-10-26 06:51] LABS: CARBON DIOXIDE 28 mmol/L (22-30); CHLORIDE 107 mmol/L (98-107)
[2019-10-26 06:55] LABS: ANION GAP 1 (5-19); PLATELET COUNT 53 10^3/uL (150-450)
[2019-10-26] MEDS: VALSARTAN 40 MG TABLET PO SCH (09:28)
[2019-10-26] MEDS: DIGOXIN 0.25 MG TABLET PO SCH (09:28)
[2019-10-26] MEDS: ISOSORBIDE MONONITRATE 30 MG TAB.ER.24H PO SCH (09:28)
[2019-10-26] MEDS: CARVEDILOL 12.5 MG TABLET PO SCH ×2 (09:28→22:22)
[2019-10-26] MEDS: NICOTINE 14 MG/24 HR PATCH.TD24 TD SCH (09:28)
[2019-10-26] MEDS: CEFTRIAXONE 1 GM/D5W RTU 1 GM/50 ML RTUPB IV SCH (17:38)
[2019-10-26] MEDS: ATORVASTATIN CALCIUM 40 MG TABLET PO SCH (22:22)
--- NOTE | 2019-10-26 23:13 | PDOC PROGRESS REPORT ---
Subjective Progress Note for:: 10/26/19 Subjective:: Reports ongoing productive cough Reason For Visit: PNEUMONIA Physical Exam Vital Signs: Temp Pulse Resp BP Pulse Ox 98.2 F 61 17 134/67 H 91 L 10/26/19 20:17 10/26/19 20:17 10/26/19 20:17 10/26/19 20:17 10/26/19 20:17 Pulse Oximeter Continuous Start: 10/21/19 18:43 Freq: RTQ4 Status: Active Protocol: Document 10/26/19 19:55 CMI (Rec: 10/26/19 19:56 CMI [id number]) Pulse Oximetry Assessment Oxygen Saturation (92-100) 95 Oxygen Flow Rate (L/min) 3 Oxygen Delivery Method Nasal Cannula Fraction of Inspired Oxygen (FIO2) 32 Equipment Usage Equipment in Use Continuous SpO2 Machine # 4 Intake & Output 10/25/19 10/26/19 10/27/19 06:59 06:59 06:59 Intake Total 1350 1426 570 Output Total 500 675 Balance 850 751 570 Weight 59.3 kg 60.3 kg General appearance: PRESENT: no acute distress, cooperative, well-developed, well-nourished Head exam: PRESENT: atraumatic, normocephalic Eye exam: PRESENT: conjunctiva pink Mouth exam: PRESENT: moist, tongue midline Neck exam: ABSENT: JVD Respiratory exam: PRESENT: decreased breath sounds - Air entry diminished at bases bilaterally, prolonged expiratory phas, symmetrical, unlabored, wheezes. ABSENT: accessory muscle use, retraction Cardiovascular exam: PRESENT: RRR, +S1, +S2 Vascular exam: PRESENT: normal capillary refill GI/Abdominal exam: PRESENT: normal bowel sounds, soft. ABSENT: distended, tenderness Rectal exam: PRESENT: deferred Extremities exam: ABSENT: calf tenderness, pedal edema Musculoskeletal exam: PRESENT: ambulatory Neurological exam: PRESENT: alert, awake, oriented to person, oriented to place, oriented to time, oriented to situation Psychiatric exam: ABSENT: agitated, anxious Skin exam: PRESENT: dry, normal color, warm Results Laboratory Results: 10/26/19 05:33 10/26/19 05:33 10/26/19 10/26/19 05:33 05:33 WBC 6.6 RBC 2.45 L Hgb 8.4 L Hct 25.3 L MCV 103 H MCH 34.1 H MCHC 33.0 RDW 21.7 H Plt Count 53 L Seg Neutrophils % 86.6 H Sodium 136.2 L Potassium 4.7 Chloride 107 Carbon Dioxide 28 Anion Gap 1 L BUN 45 H Creatinine 1.26 H Est GFR ( Amer) > 60 Glucose 83 Calcium 8.5 10/21/19 18:15 Blood Blood Culture - Final NO GROWTH IN 5 DAYS 10/21/19 17:10 Blood Blood Culture - Final NO GROWTH IN 5 DAYS 10/21/19 16:23 Troponin I 0.037 NT-Pro-B Natriuret Pep 83133 H Impressions: Chest CT 10/21/19 17:18 IMPRESSION: 1. Pulmonary emphysema. 2. Moderate right pleural effusion with smaller left pleural effusion. 3. Limited airspace disease in the right middle lobe and in the lingula: Pneumonia versus atelectasis. Assessment and Plan - Diagnosis (1) Acute respiratory failure with hypoxia Is this a current diagnosis for this admission?: Yes Plan: Patient continues to have productive cough She continues require supplemental O2 Continue albuterol HFA 2 puffs every 4 hours Continue albuterol nebs every 6 hours as needed Continue guaifenesin 200 mg p.o. every 4 hours as needed cough SARS-CoV-2 negative (2) Pneumonia Is this a current diagnosis for this admission?: Yes Plan: CT chest 10/21/2019: Pulmonary emphysema, moderate right pleural effusion with small left pleural effusion, limited airspace disease in the right middle lobe in the lung lingula (pneumonia versus atelectasis) CXR 10/25/19: Lungs are hyperinflated. No pneumothorax. Progressive right mid-basilar airspace disease over past 2 days, compatible with worsening pneumonia. No large effusions. Stable cardiomegaly. Pacer in place Sputum culture with Yris Albicans/Yris Dubliniensis, possibly colonized however since patient's respiratory status is not improving we will add antimicrobial coverage Azithromycin dropped after 3 days tx Continue ceftriaxone 1 g IV daily Continue doxycycline 100 mg IV every 12 hours Start fluconazole 200 mg IV daily Blood cultures 10/21/19: NG at 72 hours (3) Pleural effusion Is this a current diagnosis for this admission?: Yes Plan: No tx indicated at this time (4) COPD (chronic obstructive pulmonary disease) Is this a current diagnosis for this admission?: Yes Plan: Does not appear to be acute COPD exacerbation Stop steroids (5) Tobacco dependence Is this a current diagnosis for this admission?: Yes Plan: Continue nicotine patch (6) Thrombocytopenia Is this a current diagnosis for this admission?: Yes Plan: No obvious sign of hemorrhage or thrombosis Anticoagulation stopped on 10/22/2019 Hematology input appreciated, thrombocytopenia thought to be multifactorial but related in some part to DIC and possible splenic sequestration 2/2 intrinsic liver dysfunction/cardiac cirrhosis Per hematology we will continue to hold anticoagulation until platelet count is stable above 50 K, today is the first day that platelet count has been greater than 50 K There is no need to transfuse platelets unless platelet count less than 10 K (7) Anemia Is this a current diagnosis for this admission?: Yes Plan: No obvious sign of active hemorrhage Slow downward trend in H/H Hematology input appreciated Transfuse PRBCs for Hgb <7.0 - Time Time Spent with patient: 25-34 minutes Medications reviewed and adjusted accordingly: Yes Anticipated Discharge Disposition: Home, Self Care Anticipated Discharge: Other
[2019-10-26] MEDS ORDERED: FLUCONAZOLE 200 MG/NS RTU 200 MG/100 ML RTUPB IV ONE (23:45)
[2019-10-27] MEDS: MELATONIN 5 MG TABLET PO PRN ×2 (01:43→22:38)
[2019-10-27 05:02] LABS: APPEARANCE,URINE CLEAR; BILIRUBIN,URINE NEGATIVE (NEGATIVE); COLOR,URINE YELLOW; GLUCOSE, URINE NEGATIVE (NEGATIVE); KETONES,URINE NEGATIVE (NEGATIVE); LEUKOCYTE ESTERASE,URINE NEGATIVE (NEGATIVE); NITRITE,URINE NEGATIVE (NEGATIVE); PROTEIN,URINE NEGATIVE (NEGATIVE); URINE SPECIFIC GRAVITY 1.012; UROBILINOGEN,URINE NEGATIVE mg/dL (<2.0)
[2019-10-27 05:02] LABS: ABSOLUTE EOSINOPHILS # (AUTO) 0.1 10^3/uL (0.0-0.6); ABSOLUTE LYMPHOCYTES (AUTO) 0.6 10^3/uL (0.5-4.7); ABSOLUTE MONOCYTES (AUTO) 0.3 10^3/uL (0.1-1.4); ABSOLUTE NEUT (AUTO) 3.6 10^3/uL (1.7-8.2); BASOPHILS % (AUTO) 0.2 % (0-2); EOSINOPHILS % (AUTO) 1.4 % (0-6); HEMATOCRIT 26.5 % (37.9-51.0); HEMOGLOBIN 8.7 g/dL (13.5-17.0); LYMPHOCYTES % (AUTO) 13.9 % (13-45); MEAN CORPUSCULAR HEMOGLOBIN 33.9 pg (27.0-33.4); MEAN CORPUSCULAR HGB CONC 32.9 g/dL (32.0-36.0); MEAN CORPUSCULAR VOLUME 103 fl (80-97); MONOCYTES % (AUTO) 7.1 % (3-13); RED BLOOD COUNT 2.58 10^6/uL (4.35-5.55); RED CELL DISTRIBUTION WIDTH 21.4 % (11.5-14.0); SEGMENTED NEUTROPHILS % (AUTO) 77.4 % (42-78); TOTAL CELLS COUNTED % (AUTO) 100 %; WHITE BLOOD COUNT 4.6 10^3/uL (4.0-10.5)
[2019-10-27 05:17] LABS: BLOOD UREA NITROGEN 43 mg/dL (7-20); CALCIUM 8.4 mg/dL (8.4-10.2); GLUCOSE 75 mg/dL (75-110); POTASSIUM 4.4 mmol/L (3.6-5.0)
[2019-10-27 05:23] LABS: CARBON DIOXIDE 26 mmol/L (22-30); CHLORIDE 106 mmol/L (98-107)
[2019-10-27 05:27] LABS: ANION GAP 2 (5-19)
[2019-10-27 05:36] LABS: PLATELET COUNT 61 10^3/uL (150-450)
[2019-10-27] MEDS: DOXYCYCLINE HYCLATE 100 MG in DEXTROSE 5%-WATER 250 ML IV SCH ×2 (09:13→22:39)
[2019-10-27] MEDS: DIGOXIN 0.25 MG TABLET PO SCH (09:14)
[2019-10-27] MEDS: VALSARTAN 40 MG TABLET PO SCH (09:14)
[2019-10-27] MEDS: NICOTINE 14 MG/24 HR PATCH.TD24 TD SCH (09:14)
[2019-10-27] MEDS: CARVEDILOL 12.5 MG TABLET PO SCH ×2 (09:14→22:38)
[2019-10-27] MEDS: ISOSORBIDE MONONITRATE 30 MG TAB.ER.24H PO SCH (09:14)
[2019-10-27] MEDS: CEFTRIAXONE 1 GM/D5W RTU 1 GM/50 ML RTUPB IV SCH (17:01)
--- NOTE | 2019-10-27 18:19 | PDOC PROGRESS REPORT ---
Subjective Progress Note for:: 10/27/19 Subjective:: Patient reports slight improvement in breathing today Reason For Visit: PNEUMONIA Physical Exam Vital Signs: Temp Pulse Resp BP Pulse Ox 98.4 F 60 16 140/74 H 90 L 10/27/19 16:00 10/27/19 16:00 10/27/19 16:00 10/27/19 16:00 10/27/19 17:05 Pulse Oximeter Continuous Start: 10/21/19 18:43 Freq: RTQ4 Status: Active Protocol: Document 10/27/19 17:05 [facility] (Rec: 10/27/19 17:06 [facility] [id number]) Pulse Oximetry Assessment Oxygen Saturation (92-100) 90 Oxygen Delivery Method Nasal Cannula Fraction of Inspired Oxygen (FIO2) 21 Equipment Usage Equipment in Use Continuous SpO2 Machine # 4 Intake & Output 10/26/19 10/27/19 10/28/19 06:59 06:59 06:59 Intake Total 1426 920 790 Output Total 675 650 Balance 751 270 790 Weight 60.3 kg 60.6 kg General appearance: PRESENT: no acute distress, cooperative Head exam: PRESENT: atraumatic, normocephalic Eye exam: PRESENT: conjunctiva pink Mouth exam: PRESENT: moist, tongue midline Respiratory exam: PRESENT: decreased breath sounds - Air entry diminished at bases, prolonged expiratory phas, rhonchi, symmetrical, unlabored. ABSENT: accessory muscle use, retraction Cardiovascular exam: PRESENT: RRR, +S1, +S2 Vascular exam: PRESENT: normal capillary refill GI/Abdominal exam: PRESENT: normal bowel sounds, soft. ABSENT: distended, tenderness Rectal exam: PRESENT: deferred Extremities exam: ABSENT: calf tenderness, pedal edema Musculoskeletal exam: PRESENT: ambulatory Neurological exam: PRESENT: alert, awake, oriented to person, oriented to place, oriented to time, oriented to situation Psychiatric exam: ABSENT: agitated, anxious Skin exam: PRESENT: dry, normal color, warm Results Laboratory Results: 10/27/19 04:17 10/27/19 04:17 10/27/19 10/27/19 10/27/19 04:17 04:17 04:40 WBC 4.6 RBC 2.58 L Hgb 8.7 L Hct 26.5 L MCV 103 H MCH 33.9 H MCHC 32.9 RDW 21.4 H Plt Count 61 L Seg Neutrophils % 77.4 Sodium 134.0 L Potassium 4.4 Chloride 106 Carbon Dioxide 26 Anion Gap 2 L BUN 43 H Creatinine 1.36 H Est GFR ( Amer) > 60 Glucose 75 Calcium 8.4 Urine Color YELLOW Urine Appearance CLEAR Urine pH 5.0 Ur Specific [place] 1.012 Urine Protein NEGATIVE Urine Glucose (UA) NEGATIVE Urine Ketones NEGATIVE Urine Blood NEGATIVE Urine Nitrite NEGATIVE Ur Leukocyte Esterase NEGATIVE Urine RBC (Auto) 0 10/25/19 14:40 Sputum Gram Stain - Final 10/25/19 14:40 Sputum Sputum Culture - Final C.albicans/C.dubliniensis Reduced Normal Sarai 10/21/19 18:15 Blood Blood Culture - Final NO GROWTH IN 5 DAYS 10/21/19 17:10 Blood Blood Culture - Final NO GROWTH IN 5 DAYS 10/21/19 16:23 Troponin I 0.037 NT-Pro-B Natriuret Pep 01904 H Impressions: Chest CT 10/21/19 17:18 IMPRESSION: 1. Pulmonary emphysema. 2. Moderate right pleural effusion with smaller left pleural effusion. 3. Limited airspace disease in the right middle lobe and in the lingula: Pneumonia versus atelectasis. Assessment and Plan - Diagnosis (1) Acute respiratory failure with hypoxia Is this a current diagnosis for this admission?: Yes Plan: Patient continues to have productive cough Continues require supplemental O2 Continue albuterol HFA 2 puffs every 4 hours Continue albuterol nebs every 6 hours as needed Continue guaifenesin 200 mg p.o. every 4 hours as needed cough SARS-CoV-2 negative (2) Pneumonia Is this a current diagnosis for this admission?: Yes Plan: CT chest 10/21/2019: Pulmonary emphysema, moderate right pleural effusion with small left pleural effusion, limited airspace disease in the right middle lobe in the lung lingula (pneumonia versus atelectasis) CXR 10/25/19: Lungs are hyperinflated. No pneumothorax. Progressive right mid- basilar airspace disease over past 2 days, compatible with worsening pneumonia. No large effusions. Stable cardiomegaly. Pacer in place Sputum culture with Yris Albicans/Yris Dubliniensis, possibly colonized however since patient's respiratory status is not improving we will add antimicrobial coverage Azithromycin dropped after 3 days tx Continue ceftriaxone 1 g IV daily Continue doxycycline 100 mg IV every 12 hours Continue fluconazole 200 mg IV daily Blood cultures 10/21/19: NG at 5 days Repeat CXR in a.m. (3) Pleural effusion Is this a current diagnosis for this admission?: Yes Plan: No tx indicated at this time If increasing on CXR in a.m. may consider ultrasound evaluation for possible thoracentesis given fact the patient continues to have oxygen requirement (4) COPD (chronic obstructive pulmonary disease) Is this a current diagnosis for this admission?: Yes Plan: Does not appear to be acute COPD exacerbation Steroids stopped (5) Tobacco dependence Is this a current diagnosis for this admission?: Yes Plan: Continue nicotine patch (6) Thrombocytopenia Is this a current diagnosis for this admission?: Yes Plan: No obvious sign of hemorrhage or thrombosis Anticoagulation stopped on 10/22/2019 Hematology input appreciated, thrombocytopenia thought to be multifactorial but related in some part to DIC and possible splenic sequestration 2/2 intrinsic liver dysfunction/cardiac cirrhosis Per hematology we will continue to hold anticoagulation until platelet count is stable above 50 K Platelet count above 50 K past 48 hours Check d-dimer in a.m., if remains elevated and platelets remain greater than 50 K resume anticoagulation There is no need to transfuse platelets unless platelet count less than 10 K (7) Anemia Is this a current diagnosis for this admission?: Yes (8) CAD (coronary artery disease) Is this a current diagnosis for this admission?: Yes Plan: Chest pain-free Continue isosorbide mononitrate 30 mg p.o. daily Patient was on clopidogrel which was 2/2 thrombocytopenia, if platelets remain greater than 50 K tomorrow this should be restarted (9) CHF (congestive heart failure), NYHA class I Qualifiers: Congestive heart failure type: unspecified Qualified Code(s): I50.9 - Heart failure, unspecified Is this a current diagnosis for this admission?: Yes Plan: Patient does not appear to be volume overloaded spite of the fact that his fluid balances are positive It is difficult to know what patient's actual dry weight is. He had weights documented of 51.4 as well as 58.06 on his day of admission. Subsequently the patient weighed 51 kg for 3 days and then jumped to 59.2 in spite of the fact that he not received significant volume. Since 09/25/2019 his weight is up approximately 1.3 kg however clinically he does not seem to be significantly edematous CXR in a.m. Continue carvedilol 25 mg p.o. every 12 hours Continue valsartan 40 mg p.o. daily Continue digoxin 0.25 mg p.o. daily Diurese as needed (10) HTN (hypertension) Is this a current diagnosis for this admission?: Yes Plan: Adequate BP control Continue medications as noted above (11) Dyslipidemia Is this a current diagnosis for this admission?: Yes Plan: Continue atorvastatin 40 mg p.o. nightly - Time Time Spent with patient: 25-34 minutes Medications reviewed and adjusted accordingly: Yes Anticipated Discharge Disposition: Home, Self Care Anticipated Discharge: Other
[2019-10-27] MEDS: ATORVASTATIN CALCIUM 40 MG TABLET PO SCH (22:38)
[2019-10-27] MEDS: FLUCONAZOLE 200 MG/NS RTU 200 MG/100 ML RTUPB IV SCH (22:48)
[2019-10-28 07:27] LABS: ABSOLUTE EOSINOPHILS # (AUTO) 0.2 10^3/uL (0.0-0.6); ABSOLUTE LYMPHOCYTES (AUTO) 0.6 10^3/uL (0.5-4.7); ABSOLUTE MONOCYTES (AUTO) 0.4 10^3/uL (0.1-1.4); ABSOLUTE NEUT (AUTO) 3.5 10^3/uL (1.7-8.2); BASOPHILS % (AUTO) 0.1 % (0-2); EOSINOPHILS % (AUTO) 3.2 % (0-6); HEMATOCRIT 28.5 % (37.9-51.0); HEMOGLOBIN 9.5 g/dL (13.5-17.0); LYMPHOCYTES % (AUTO) 12.7 % (13-45); MEAN CORPUSCULAR HEMOGLOBIN 33.8 pg (27.0-33.4); MEAN CORPUSCULAR HGB CONC 33.2 g/dL (32.0-36.0); MEAN CORPUSCULAR VOLUME 102 fl (80-97); MONOCYTES % (AUTO) 8.8 % (3-13); RED CELL DISTRIBUTION WIDTH 20.9 % (11.5-14.0); SEGMENTED NEUTROPHILS % (AUTO) 75.2 % (42-78); TOTAL CELLS COUNTED % (AUTO) 100 %; WHITE BLOOD COUNT 4.6 10^3/uL (4.0-10.5)
[2019-10-28 07:47] LABS: BLOOD UREA NITROGEN 41 mg/dL (7-20); CALCIUM 8.3 mg/dL (8.4-10.2); CHLORIDE 104 mmol/L (98-107); GLUCOSE 90 mg/dL (75-110); POTASSIUM 4.3 mmol/L (3.6-5.0)
[2019-10-28 07:53] LABS: CARBON DIOXIDE 27 mmol/L (22-30)
[2019-10-28 07:58] LABS: ANION GAP 3 (5-19)
[2019-10-28 08:35] LABS: PLATELET COUNT 65 10^3/uL (150-450)
--- NOTE | 2019-10-28 09:04 | RADIOLOGY REPORT (SQ) ---
EXAM DESCRIPTION: CHEST SINGLE VIEW IMAGES COMPLETED DATE/TIME: 10/28/2019 8:46 am REASON FOR STUDY: Pneumonia/Pleural effusion COMPARISON: 10/25/2019 NUMBER OF VIEWS: One view. TECHNIQUE: Single frontal radiographic image of the chest acquired. LIMITATIONS: None. FINDINGS: LUNGS AND PLEURA: Improved aeration in the right lung with residual small effusion and ass ociated airspace disease. Small left pleural effusion is unchanged. MEDIASTINUM AND HEART: Stable heart size and mediastinal structures. SUPPORT DEVICES: Appropriate location without change. BONY STRUCTURES: No acute findings. HARDWARE: None. OTHER: No other significant finding. IMPRESSION: Improving pneumonia. Reading location - IP/workstation name: [facility]
[2019-10-28] MEDS: ISOSORBIDE MONONITRATE 30 MG TAB.ER.24H PO SCH (11:10)
[2019-10-28] MEDS: CARVEDILOL 12.5 MG TABLET PO SCH ×2 (11:10→22:04)
[2019-10-28] MEDS: DIGOXIN 0.25 MG TABLET PO SCH (11:11)
[2019-10-28] MEDS: VALSARTAN 40 MG TABLET PO SCH (11:11)
[2019-10-28] MEDS: FUROSEMIDE 20 MG TABLET PO SCH (11:13)
[2019-10-28] MEDS: NICOTINE 14 MG/24 HR PATCH.TD24 TD SCH (11:14)
[2019-10-28] MEDS: DOXYCYCLINE HYCLATE 100 MG in DEXTROSE 5%-WATER 250 ML IV SCH ×2 (11:16→22:05)
--- NOTE | 2019-10-28 12:57 | PDOC PROGRESS REPORT ---
Subjective Progress Note for:: 10/28/19 Subjective:: 68 year old male with a limited medical history as patient is a poor historian but known to have hypertension, hyperlipidemia, CHF, w/ pacemaker/AICD and recent LLE arterial bypass surgery (September 2019), nicotine dependence w/ continuous use who presented to the emergency department today with a complaint of several days of progressively worsening dyspnea at rest and generalized weakness. Patient report a productive cough. He denies fever, though admits to chills. No known sick contacts. Evaluation in the emergency department revealed tachypnea, hypoxia on room air, baseline renal function (CR 1.5/BUN 32), baseline proBNP (61k), CBC pending. Urinalysis pending. COVID pending. Chest x-ray is benign. Chest CT shows right middle lobe and lingular consolidation consistent with pneumonia. He is provided IV azithromycin and Rocephin; referred to the hospitalist service for further evaluation management of the above-stated complaints findings. 10/28/2019-patient is comfortably in the bed communicating well. Not in distress. Pulse ox is 93% on 3 L. To check for home oxygen requirements. Patient expressing desire to go to short-term rehab at this time. Physical therapy consult was requested. Blood cultures are negative sputum culture is growing Yris. Reason For Visit: PNEUMONIA Physical Exam Vital Signs: Temp Pulse Resp BP Pulse Ox 99.0 F 60 17 150/75 H 92 10/27/19 23:40 10/28/19 07:00 10/27/19 23:40 10/27/19 23:40 10/28/19 10:24 Pulse Oximeter Continuous Start: 10/21/19 18:43 Freq: RTQ4 Status: Active Protocol: Document 10/28/19 10:23 [facility] [place] (Rec: 10/28/19 10:24 [facility] [place] [id number]) Pulse Oximetry Assessment Oxygen Saturation (92-100) 92 Oxygen Flow Rate (L/min) 3 Oxygen Delivery Method Nasal Cannula Fraction of Inspired Oxygen (FIO2) 32 Equipment Usage Equipment in Use Continuous SpO2 Machine # 4 Intake & Output 10/27/19 10/28/19 10/29/19 06:59 06:59 06:59 Intake Total 920 1190 Output Total 650 900 Balance 270 290 Weight 60.6 kg 60.6 kg General appearance: PRESENT: no acute distress, well-developed Head exam: PRESENT: atraumatic Eye exam: PRESENT: PERRLA Mouth exam: PRESENT: moist, tongue midline Teeth exam: PRESENT: poor dentation Neck exam: ABSENT: carotid bruit, JVD, lymphadenopathy, thyromegaly Respiratory exam: PRESENT: decreased breath sounds Cardiovascular exam: PRESENT: RRR. ABSENT: diastolic murmur, rubs, systolic murmur GI/Abdominal exam: PRESENT: normal bowel sounds, soft. ABSENT: distended, guarding, mass, organolmegaly, rebound, tenderness Rectal exam: PRESENT: deferred Extremities exam: PRESENT: full ROM. ABSENT: calf tenderness, clubbing, pedal edema Neurological exam: PRESENT: alert, awake, oriented to person, oriented to place, oriented to time, oriented to situation, CN II-XII grossly intact. ABSENT: motor sensory deficit Psychiatric exam: PRESENT: appropriate affect, normal mood. ABSENT: homicidal ideation, suicidal ideation Results Laboratory Results: 10/28/19 06:40 10/28/19 06:40 10/28/19 10/28/19 06:40 06:40 WBC 4.6 RBC 2.80 L Hgb 9.5 L Hct 28.5 L MCV 102 H MCH 33.8 H MCHC 33.2 RDW 20.9 H Plt Count 65 L Seg Neutrophils % 75.2 Sodium 133.8 L Potassium 4.3 Chloride 104 Carbon Dioxide 27 Anion Gap 3 L BUN 41 H Creatinine 1.19 Est GFR ( Amer) > 60 Glucose 90 Calcium 8.3 L 10/21/19 16:23 Troponin I 0.037 NT-Pro-B Natriuret Pep 57352 H Impressions: Chest CT 10/21/19 17:18 IMPRESSION: 1. Pulmonary emphysema. 2. Moderate right pleural effusion with smaller left pleural effusion. 3. Limited airspace disease in the right middle lobe and in the lingula: Pneumonia versus atelectasis. Chest X-Ray 10/28/19 06:00 IMPRESSION: Improving pneumonia. Assessment and Plan - Diagnosis (1) Pneumonia Is this a current diagnosis for this admission?: Yes Plan: CT chest 10/21/2019: Pulmonary emphysema, moderate right pleural effusion with small left pleural effusion, limited airspace disease in the right middle lobe in the lung lingula (pneumonia versus atelectasis) CXR 10/25/19: Lungs are hyperinflated. No pneumothorax. Progressive right mid- basilar airspace disease over past 2 days, compatible with worsening pneumonia. No large effusions. Stable cardiomegaly. Pacer in place Sputum culture with Yris Albicans/Yris Dubliniensis, possibly colonized however since patient's respiratory status is not improving we will add antimicrobial coverage Azithromycin dropped after 3 days tx Continue ceftriaxone 1 g IV daily Continue doxycycline 100 mg IV every 12 hours Continue fluconazole 200 mg IV daily Blood cultures 10/21/19: NG at 5 days Repeat CXR in a.m. 10/28/2019-chest x-ray done this morning indicates improving pneumonia. Patient is presently on ceftriaxone, doxycycline and fluconazole. Pulse ox is 93% on 3 L. Plan to check for the home oxygen requirements. Patient is willing to go to short-term rehab at this time. (2) Suspected COVID-19 virus infection Is this a current diagnosis for this admission?: Yes Plan: D-dimer 13.24 Ferritin, LDH, CRP pending COVID pending. Start on full dose Lovenox Consider Hydroxychloroquine or Remdesivir pending COVID result. Decadron 4 mg IV every 12 hours Supplemental oxygen as needed; HFNC as needed. Start vitamin C, vitamin D, zinc, melatonin supplementation Scheduled albuterol HFA As needed nebs 04/29/2019-cover test is negative. Patient is presently on ceftriaxone, doxycycline, Diflucan. Plan is to discontinue ceftriaxone from today. (3) Acute respiratory failure with hypoxia Is this a current diagnosis for this admission?: Yes Plan: Patient continues to have productive cough Continues require supplemental O2 Continue albuterol HFA 2 puffs every 4 hours Continue albuterol nebs every 6 hours as needed Continue guaifenesin 200 mg p.o. every 4 hours as needed cough SARS-CoV-2 negative 10/28/2019-pulse ox is 93% on 3 L. covid test is negative. Plan is to check for home oxygen requirements. (4) CHF (congestive heart failure), NYHA class I Qualifiers: Congestive heart failure type: unspecified Qualified Code(s): I50.9 - Heart failure, unspecified Is this a current diagnosis for this admission?: Yes Plan: Patient does not appear to be volume overloaded spite of the fact that his fluid balances are positive It is difficult to know what patient's actual dry weight is. He had weights documented of 51.4 as well as 58.06 on his day of admission. Subsequently the patient weighed 51 kg for 3 days and then jumped to 59.2 in spite of the fact that he not received significant volume. Since 09/25/2019 his weight is up approximately 1.3 kg however clinically he does not seem to be significantly edematous CXR in a.m. Continue carvedilol 25 mg p.o. every 12 hours Continue valsartan 40 mg p.o. daily Continue digoxin 0.25 mg p.o. daily Diurese as needed 10/28/2019-patient has history of chronic congestive heart failure and echocardiogram is pending. Unable to comment about the chronicity and the type of heart failure at this time. (5) Tobacco dependence Is this a current diagnosis for this admission?: Yes Plan: Continue nicotine patch - Time Anticipated Discharge Disposition: [facility]irement Facility Anticipated Discharge: within 72 hours
[2019-10-28] MEDS: ATORVASTATIN CALCIUM 40 MG TABLET PO SCH (22:04)
[2019-10-28] MEDS: FLUCONAZOLE 200 MG/NS RTU 200 MG/100 ML RTUPB IV SCH (22:04)
[2019-10-28] MEDS: MELATONIN 5 MG TABLET PO PRN (22:04)
[2019-10-29 06:18] LABS: HEMATOCRIT 27.4 % (37.9-51.0); HEMOGLOBIN 9.3 g/dL (13.5-17.0); MEAN CORPUSCULAR HEMOGLOBIN 34.3 pg (27.0-33.4); MEAN CORPUSCULAR HGB CONC 33.9 g/dL (32.0-36.0); MEAN CORPUSCULAR VOLUME 101 fl (80-97); RED BLOOD COUNT 2.71 10^6/uL (4.35-5.55); RED CELL DISTRIBUTION WIDTH 21.2 % (11.5-14.0)
[2019-10-29 06:41] LABS: PLATELET COUNT 62 10^3/uL (150-450)
[2019-10-29 07:14] LABS: APPEARANCE,URINE CLEAR; BILIRUBIN,URINE NEGATIVE (NEGATIVE); COLOR,URINE STRAW; GLUCOSE, URINE NEGATIVE (NEGATIVE); KETONES,URINE NEGATIVE (NEGATIVE); LEUKOCYTE ESTERASE,URINE NEGATIVE (NEGATIVE); NITRITE,URINE NEGATIVE (NEGATIVE); PROTEIN,URINE NEGATIVE (NEGATIVE); URINE SPECIFIC GRAVITY 1.008; UROBILINOGEN,URINE NEGATIVE mg/dL (<2.0)
[2019-10-29] MEDS: CARVEDILOL 12.5 MG TABLET PO SCH ×2 (09:08→21:22)
[2019-10-29] MEDS: NICOTINE 14 MG/24 HR PATCH.TD24 TD SCH (09:09)
[2019-10-29] MEDS: ISOSORBIDE MONONITRATE 30 MG TAB.ER.24H PO SCH (09:09)
[2019-10-29] MEDS: DOXYCYCLINE HYCLATE 100 MG in DEXTROSE 5%-WATER 250 ML IV SCH ×2 (09:10→21:25)
[2019-10-29] MEDS: VALSARTAN 40 MG TABLET PO SCH (09:12)
[2019-10-29] MEDS: DIGOXIN 0.25 MG TABLET PO SCH (09:13)
--- NOTE | 2019-10-29 10:04 | PDOC PROGRESS REPORT ---
Subjective Progress Note for:: 10/29/19 Subjective:: Patient sitting in the chair. He reports that he is feeling slightly better. He still requires nasal cannula oxygen. Reason For Visit: PNEUMONIA Physical Exam Vital Signs: Temp Pulse Resp BP Pulse Ox 98.6 F 61 17 145/62 H 94 10/29/19 08:00 10/29/19 08:00 10/29/19 08:00 10/29/19 08:00 10/29/19 08:00 Pulse Oximeter Continuous Start: 10/21/19 18:43 Freq: RTQ4 Status: Active Protocol: Document 10/29/19 04:00 [facility] (Rec: 10/29/19 04:53 [facility] [id number]) Pulse Oximetry Assessment Oxygen Saturation (92-100) 95 Oxygen Flow Rate (L/min) 2 Oxygen Delivery Method Nasal Cannula Fraction of Inspired Oxygen (FIO2) 28 Equipment Usage Equipment in Use Continuous Pulse Oximeter 24 Hour Charge Charge Now Continuous SpO2 Machine # 4 Intake & Output 10/28/19 10/29/19 10/30/19 06:59 06:59 06:59 Intake Total 1190 840 Output Total 900 200 Balance 290 640 Weight 60.6 kg 60.6 kg General appearance: PRESENT: no acute distress, cooperative, well-developed Head exam: PRESENT: atraumatic, normocephalic Ear exam: PRESENT: normal external ear exam. ABSENT: bleeding, drainage Mouth exam: PRESENT: moist, tongue midline Respiratory exam: PRESENT: clear to auscultation kh[place]boo, decreased breath sounds - Breath sounds are slightly decreased on the right, symmetrical, unlabored. ABSE NT: rales, rhonchi, tachypnea, wheezes Cardiovascular exam: PRESENT: RRR, +S1, +S2. ABSENT: bradycardia, irregular rhythm, tachycardia GI/Abdominal exam: PRESENT: normal bowel sounds, soft. ABSENT: distended, guarding, tenderness Rectal exam: PRESENT: deferred Gentrourinary exam: ABSENT: indwelling catheter Extremities exam: ABSENT: pedal edema Musculoskeletal exam: PRESENT: ambulatory Neurological exam: PRESENT: alert, awake, oriented to person, oriented to place, oriented to time, oriented to situation, CN II-XII grossly intact Psychiatric exam: PRESENT: appropriate affect. ABSENT: agitated, anxious Focused psych exam: ABSENT: delusional, paranoid, restlessness Skin exam: PRESENT: dry, warm. ABSENT: rash Results Laboratory Results: 10/29/19 05:36 10/28/19 06:40 10/29/19 10/29/19 05:36 06:35 WBC 4.0 RBC 2.71 L Hgb 9.3 L Hct 27.4 L MCV 101 H MCH 34.3 H MCHC 33.9 RDW 21.2 H Plt Count 62 L Urine Color STRAW Urine Appearance CLEAR Urine pH 6.0 Ur Specific [place] 1.008 Urine Protein NEGATIVE Urine Glucose (UA) NEGATIVE Urine Ketones NEGATIVE Urine Blood NEGATIVE Urine Nitrite NEGATIVE Ur Leukocyte Esterase NEGATIVE Urine WBC (Auto) 0 10/21/19 16:23 Troponin I 0.037 NT-Pro-B Natriuret Pep [id number] H Impressions: Chest CT 10/21/19 17:18 IMPRESSION: 1. Pulmonary emphysema. 2. Moderate right pleural effusion with smaller left pleural effusion. 3. Limited airspace disease in the right middle lobe and in the lingula: Pneumonia versus atelectasis. Chest X-Ray 10/28/19 06:00 IMPRESSION: Improving pneumonia. Assessment and Plan - Diagnosis (1) Pneumonia Qualifiers: Pneumonia type: due to unspecified organism Laterality: right Lung location: lower lobe of lung Qualified Code(s): J18.9 - Pneumonia, unspecified organism Is this a current diagnosis for this admission?: Yes Plan: CT chest 10/21/2019: Pulmonary emphysema, moderate right pleural effusion with small left pleural effusion, limited airspace disease in the right middle lobe in the lung lingula (pneumonia versus atelectasis) CXR 10/25/19: Lungs are hyperinflated. No pneumothorax. Progressive right mid- basilar airspace disease over past 2 days, compatible with worsening pneumonia. No large effusions. Stable cardiomegaly. Pacer in place Sputum culture with Yris Albicans/Yris Dubliniensis, possibly colonized however since patient's respiratory status is not improving we will add antimicrobial coverage Azithromycin dropped after 3 days tx Continue ceftriaxone 1 g IV daily Continue doxycycline 100 mg IV every 12 hours Continue fluconazole 200 mg IV daily Blood cultures 10/21/19: NG at 5 days Repeat CXR in a.m. 10/28/2019-chest x-ray done this morning indicates improving pneumonia. Patient is presently on ceftriaxone, doxycycline and fluconazole. Pulse ox is 93% on 3 L. Plan to check for the home oxygen requirements. Patient is willing to go to [facility]term rehab at this time. 10/28- cont antibiotics. taper oxygen as tolerated (2) Suspected COVID-19 virus infection Is this a current diagnosis for this admission?: Yes Plan: D-dimer 13.24 Ferritin, LDH, CRP pending COVID pending. Start on full dose Lovenox Consider Hydroxychloroquine or Remdesivir pending COVID result. Decadron 4 mg IV every 12 hours Supplemental oxygen as needed; HFNC as needed. Start vitamin C, vitamin D, zinc, melatonin supplementation Scheduled albuterol HFA As needed nebs 04/29/2019-cover test is negative. Patient is presently on ceftriaxone, doxycycline, Diflucan. Plan is to discontinue ceftriaxone from today. 04/30- cont doxy and diflucan since sputum poritive for yris and covid serology negative (3) Acute respiratory failure with hypoxia Is this a current diagnosis for this admission?: Yes Plan: Patient continues to have productive cough Continues require supplemental O2 Continue albuterol HFA 2 puffs every 4 hours Continue albuterol nebs every 6 hours as needed Continue guaifenesin 200 mg p.o. every 4 hours as needed cough SARS-CoV-2 negative 10/28/2019-pulse ox is 93% on 3 L. covid test is negative. Plan is to check for home oxygen requirements. 10/28-continue to taper (4) Pleural effusion Is this a current diagnosis for this admission?: Yes Plan: No tx indicated at this time If increasing on CXR in a.m. may consider ultrasound evaluation for possible thoracentesis given fact the patient continues to have oxygen requirement 10/28- stable with no need for intervention other than current medications (5) CHF (congestive heart failure), NYHA class I Qualifiers: Congestive heart failure type: unspecified Qualified Code(s): I50.9 - Heart failure, unspecified Is this a current diagnosis for this admission?: Yes Plan: Patient does not appear to be volume overloaded spite of the fact that his fluid balances are positive It is difficult to know what patient's actual dry weight is. He had weights documented of 51.4 as well as 58.06 on his day of admission. Subsequently the patient weighed 51 kg for 3 days and then jumped to 59.2 in spite of the fact that he not received significant volume. Since 09/25/2019 his weight is up approximately 1.3 kg however clinically he does not seem to be significantly edematous CXR in a.m. Continue carvedilol 25 mg p.o. every 12 hours Continue valsartan 40 mg p.o. daily Continue digoxin 0.25 mg p.o. daily Diurese as needed 10/28/2019-patient has history of chronic congestive heart failure and echocardiogram is pending. Unable to comment about the chronicity and the type of heart failure at this time. 10/28- no echo ordered at this time (6) Tobacco dependence Is this a current diagnosis for this admission?: Yes Plan: Continue nicotine patch - Time Time Spent with patient: 15-24 minutes Smoking Cessation Education: 3 to 10 minutes Medications reviewed and adjusted accordingly: Yes Anticipated Discharge Disposition: Home with Home Health Anticipated Discharge Timeframe: within 48 hours
[2019-10-29] MEDS: HEPARIN SOD (PORCINE) 5,000 UNIT/ML 1 ML VIAL SUBCUT SCH ×2 (14:50→21:35)
[2019-10-29] MEDS: FLUTICASONE/UMECLIDIN/VILANTER 100-62.5-25 MCG/DOSE IH SCH (14:57)
[2019-10-29] MEDS: MELATONIN 5 MG TABLET PO PRN (21:22)
[2019-10-29] MEDS: ATORVASTATIN CALCIUM 40 MG TABLET PO SCH (21:22)
[2019-10-29] MEDS: FLUCONAZOLE 200 MG/NS RTU 200 MG/100 ML RTUPB IV SCH (21:25)
[2019-10-30 05:44] LABS: HEMATOCRIT 26.1 % (37.9-51.0); HEMOGLOBIN 8.6 g/dL (13.5-17.0); MEAN CORPUSCULAR HEMOGLOBIN 33.4 pg (27.0-33.4); MEAN CORPUSCULAR HGB CONC 33.1 g/dL (32.0-36.0); MEAN CORPUSCULAR VOLUME 101 fl (80-97); RED BLOOD COUNT 2.59 10^6/uL (4.35-5.55); WHITE BLOOD COUNT 3.9 10^3/uL (4.0-10.5)
[2019-10-30] MEDS: HEPARIN SOD (PORCINE) 5,000 UNIT/ML 1 ML VIAL SUBCUT SCH ×3 (05:50→22:29)
[2019-10-30 06:07] LABS: PLATELET COUNT 65 10^3/uL (150-450)
[2019-10-30 06:08] LABS: BLOOD UREA NITROGEN 37 mg/dL (7-20); CALCIUM 8.3 mg/dL (8.4-10.2); GLUCOSE 74 mg/dL (75-110); POTASSIUM 4.3 mmol/L (3.6-5.0)
[2019-10-30 06:13] LABS: CARBON DIOXIDE 29 mmol/L (22-30); CHLORIDE 104 mmol/L (98-107)
[2019-10-30 06:19] LABS: ANION GAP 1 (5-19)
[2019-10-30] MEDS: ISOSORBIDE MONONITRATE 30 MG TAB.ER.24H PO SCH (09:47)
[2019-10-30] MEDS: CARVEDILOL 12.5 MG TABLET PO SCH ×2 (09:47→22:26)
[2019-10-30] MEDS: DIGOXIN 0.25 MG TABLET PO SCH (09:48)
[2019-10-30] MEDS: VALSARTAN 40 MG TABLET PO SCH (09:50)
[2019-10-30] MEDS: NICOTINE 14 MG/24 HR PATCH.TD24 TD SCH (09:50)
[2019-10-30] MEDS: FUROSEMIDE 20 MG TABLET PO SCH (09:51)
[2019-10-30] MEDS: DOXYCYCLINE HYCLATE 100 MG in DEXTROSE 5%-WATER 250 ML IV SCH ×2 (10:16→21:15)
[2019-10-30] MEDS: FLUTICASONE/UMECLIDIN/VILANTER 100-62.5-25 MCG/DOSE IH SCH (10:16)
--- NOTE | 2019-10-30 12:37 | PDOC PROGRESS REPORT ---
Subjective Progress Note for:: 10/30/19 Subjective:: 68 year old male with a limited medical history as patient is a poor historian but known to have hypertension, hyperlipidemia, CHF, w/ pacemaker/AICD and recent LLE arterial bypass surgery (September 2019), nicotine dependence w/ continuous use who presented to the emergency department today with a complaint of several days of progressively worsening dyspnea at rest and generalized weakness. Patient report a productive cough. He denies fever, though admits to chills. No known sick contacts. Evaluation in the emergency department revealed tachypnea, hypoxia on room air, baseline renal function (CR 1.5/BUN 32), baseline proBNP (61k), CBC pending. Urinalysis pending. COVID pending. Chest x-ray is benign. Chest CT shows right middle lobe and lingular consolidation consistent with pneumonia. He is provided IV azithromycin and Rocephin; referred to the hospitalist service for further evaluation management of the above-stated complaints findings. 10/28/2019-patient is comfortably in the bed communicating well. Not in distress. Pulse ox is 93% on 3 L. To check for home oxygen requirements. Patient expressing desire to go to short-term rehab at this time. Physical therapy consult was requested. Blood cultures are negative sputum culture is growing Yris. 10/30/2019-patient is comfortably in the bed communicating well. Concerns about right lower leg swelling. Pulse ox is 95% on 2 L. Physical therapy working with the patient. Blood cultures are negative, sputum culture is growing Yris. Reason For Visit: PNEUMONIA Physical Exam Vital Signs: Temp Pulse Resp BP Pulse Ox 98.5 F 60 20 156/76 H 95 10/30/19 07:41 10/30/19 07:41 10/30/19 07:41 10/30/19 07:41 10/30/19 08:12 Pulse Oximeter Ambulatory Start: 10/29/19 09:55 Freq: RTDAILY Status: Active Protocol: Document 10/30/19 09:52 HCR (Rec: 10/30/19 09:53 HCR [email or web address]) Exercise Oximetry Treatment Ambulating SpO2 Charge Now No Intervention Variance Variance Reason done by RN Pulse Oximeter Continuous Start: 10/21/19 18:43 Freq: RTQ4 Status: Active Protocol: Document 10/30/19 08:12 HCR (Rec: 10/30/19 08:12 HCR [email or web address]) Pulse Oximetry Assessment Oxygen Saturation (92-100) 95 Oxygen Flow Rate (L/min) 2 Oxygen Delivery Method Nasal Cannula Equipment Usage Equipment in Use Continuous SpO2 Machine # 4 Intake & Output 10/29/19 10/30/19 10/31/19 06:59 06:59 06:59 Intake Total 840 2140 Output Total 200 950 Balance 640 1190 Weight 60.6 kg 60.8 kg General appearance: PRESENT: no acute distress Head exam: PRESENT: atraumatic Eye exam: PRESENT: PERRLA Mouth exam: PRESENT: moist, tongue midline Teeth exam: PRESENT: poor dentation Neck exam: ABSENT: carotid bruit, JVD, lymphadenopathy, thyromegaly Respiratory exam: PRESENT: decreased breath sounds Cardiovascular exam: PRESENT: RRR. ABSENT: diastolic murmur, rubs, systolic murmur GI/Abdominal exam: PRESENT: normal bowel sounds, soft. ABSENT: distended, guarding, mass, organolmegaly, rebound, tenderness Rectal exam: PRESENT: deferred Extremities exam: PRESENT: full ROM, pedal edema - Patient has right lower leg swelling, other. ABSENT: calf tenderness, clubbing Neurological exam: PRESENT: alert, awake, oriented to person, oriented to place, oriented to time, oriented to situation, CN II-XII grossly intact. ABSENT: motor sensory deficit Psychiatric exam: PRESENT: appropriate affect, normal mood. ABSENT: homicidal ideation, suicidal ideation Results Laboratory Results: 10/30/19 05:15 10/30/19 05:15 10/30/19 10/30/19 05:15 05:15 WBC 3.9 L RBC 2.59 L Hgb 8.6 L Hct 26.1 L MCV 101 H MCH 33.4 MCHC 33.1 RDW 21.0 H Plt Count 65 L Sodium 134.2 L Potassium 4.3 Chloride 104 Carbon Dioxide 29 Anion Gap 1 L BUN 37 H Creatinine 1.28 H Est GFR ( Amer) > 60 Glucose 74 L Calcium 8.3 L 10/21/19 16:23 Troponin I 0.037 NT-Pro-B Natriuret Pep 45426 H Impressions: Chest CT 10/21/19 17:18 IMPRESSION: 1. Pulmonary emphysema. 2. Moderate right pleural effusion with smaller left pleural effusion. 3. Limited airspace disease in the right middle lobe and in the lingula: Pneumonia versus atelectasis. Chest X-Ray 10/28/19 06:00 IMPRESSION: Improving pneumonia. Assessment and Plan - Diagnosis (1) Pneumonia Qualifiers: Pneumonia type: due to unspecified organism Laterality: right Lung location: lower lobe of lung Qualified Code(s): J18.9 - Pneumonia, unspecified organism Is this a current diagnosis for this admission?: Yes Plan: CT chest 10/21/2019: Pulmonary emphysema, moderate right pleural effusion with small left pleural effusion, limited airspace disease in the right middle lobe in the lung lingula (pneumonia versus atelectasis) CXR 10/25/19: Lungs are hyperinflated. No pneumothorax. Progressive right mid- basilar airspace disease over past 2 days, compatible with worsening pneumonia. No large effusions. Stable cardiomegaly. Pacer in place Sputum culture with Yris Albicans/Yris Dubliniensis, possibly colonized however since patient's respiratory status is not improving we will add antimicrobial coverage Azithromycin dropped after 3 days tx Continue ceftriaxone 1 g IV daily Continue doxycycline 100 mg IV every 12 hours Continue fluconazole 200 mg IV daily Blood cultures 10/21/19: NG at 5 days Repeat CXR in a.m. 10/28/2019-chest x-ray done this morning indicates improving pneumonia. Patient is presently on ceftriaxone, doxycycline and fluconazole. Pulse ox is 93% on 3 L. Plan to check for the home oxygen requirements. Patient is willing to go to short-term rehab at this time. 10/28- cont antibiotics. taper oxygen as tolerated 10/30/2019-patient is receiving antibiotics for pneumonia presently on doxycycline, fluconazole. Sputum culture is growing Yris. Pulse ox is 95% on 2 L. Plan is to continue the present management at this time. (2) Suspected COVID-19 virus infection Is this a current diagnosis for this admission?: Yes Plan: D-dimer 13.24 Ferritin, LDH, CRP pending COVID pending. Start on full dose Lovenox Consider Hydroxychloroquine or Remdesivir pending COVID result. Decadron 4 mg IV every 12 hours Supplemental oxygen as needed; HFNC as needed. Start vitamin C, vitamin D, zinc, melatonin supplementation Scheduled albuterol HFA As needed nebs 04/29/2019-cover test is negative. Patient is presently on ceftriaxone, doxycycline, Diflucan. Plan is to discontinue ceftriaxone from today. 04/30- cont doxy and diflucan since sputum poritive for yris and covid serology negative 10/30/2019-patient is presently on doxycycline, Diflucan. Sputum culture is positive for Yris. (3) Acute respiratory failure with hypoxia Is this a current diagnosis for this admission?: Yes Plan: Patient continues to have productive cough Continues require supplemental O2 Continue albuterol HFA 2 puffs every 4 hours Continue albuterol nebs every 6 hours as needed Continue guaifenesin 200 mg p.o. every 4 hours as needed cough SARS-CoV-2 negative 10/28/2019-pulse ox is 93% on 3 L. covid test is negative. Plan is to check for home oxygen requirements. 10/28-continue to taper 10/30/2019-pulse ox is 95% on 2 L today. Plan is to continue to closely monitor the pulse ox (4) CHF (congestive heart failure), NYHA class I Qualifiers: Congestive heart failure type: unspecified Qualified Code(s): I50.9 - Heart failure, unspecified Is this a current diagnosis for this admission?: No Plan: Patient does not appear to be volume overloaded spite of the fact that his fluid balances are positive It is difficult to know what patient's actual dry weight is. He had weights documented of 51.4 as well as 58.06 on his day of admission. Subsequently the patient weighed 51 kg for 3 days and then jumped to 59.2 in spite of the fact that he not received significant volume. Since 09/25/2019 his weight is up sydnie roximately 1.3 kg however clinically he does not seem to be significantly edematous CXR in a.m. Continue carvedilol 25 mg p.o. every 12 hours Continue valsartan 40 mg p.o. daily Continue digoxin 0.25 mg p.o. daily Diurese as needed 10/28/2019-patient has history of chronic congestive heart failure and echocardiogram is pending. Unable to comment about the chronicity and the type of heart failure at this time. 10/28- no echo ordered at this time 10/30/2019-echocardiogram is pending today. Right lower leg swelling present. Patient has history of heart failure. Gently on Coreg, valsartan, digoxin. (5) Tobacco dependence Is this a current diagnosis for this admission?: No Plan: Continue nicotine patch - Time Anticipated Discharge Disposition: Home with Home Health Anticipated Discharge Timeframe: within 48 hours
--- NOTE | 2019-10-30 15:48 | RADIOLOGY REPORT (SQ) ---
EXAM DESCRIPTION: VENOUS UNILATERAL LOWER IMAGES COMPLETED DATE/TIME: 10/30/2019 3:34 pm REASON FOR STUDY: rt lower leg edema COMPARISON: None. TECHNIQUE: Dynamic and static reyna scale and color images acquired of the right leg venous system. S elected spectral images acquired with additional compression and augmentation maneuvers. The contrala teral common femoral vein and saphenofemoral junction were also imaged. Images stored on PACS. LIMITATIONS: None. FINDINGS: COMMON FEMORAL: Normal phasicity, compression and augmentation. No visualized echogenic ma terial on reyna scale. No defects on color images. FEMORAL: Normal compression and augmentation. No visualized echogenic material on reyna scale. No defe cts on color images. POPLITEAL: Normal compression, augmentation. No visualized echogenic material on reyna scale. No defec ts on color images. CALF VESSELS: Normal compression, augmentation. No visualized echogenic material on reyna scale. No de fects on color images. GSV and SSV: Normal compression, augmentation. No visualized echogenic material on reyna scale. No def ects on color images. ANY DEEP VENOUS INSUFFICIENCY: Not evaluated. ANY EVIDENCE OF POPLITEAL CYST: No. OTHER: No other significant finding. CONTRALATERAL COMMON FEMORAL VEIN AND SAPHENOFEMORAL JUNCTION: Normal phasicity, compression and augmentation. No visualized echogenic material on reyna scale. No de fects on color images. IMPRESSION: NO EVIDENCE DVT OR SVT IN THE RIGHT LEG. TECHNICAL DOCUMENTATION: JOB ID: [id number] 2010 [employer]- All Rights Reserved Reading location - IP/workstation name: [email or web address]
[2019-10-30] MEDS: FLUCONAZOLE 200 MG/NS RTU 200 MG/100 ML RTUPB IV SCH (22:26)
[2019-10-30] MEDS: MELATONIN 5 MG TABLET PO PRN (22:27)
[2019-10-30] MEDS: ATORVASTATIN CALCIUM 40 MG TABLET PO SCH (22:27)
[2019-10-31] MEDS: HEPARIN SOD (PORCINE) 5,000 UNIT/ML 1 ML VIAL SUBCUT SCH ×3 (05:35→21:48)
[2019-10-31 05:56] LABS: MEAN CORPUSCULAR HEMOGLOBIN 33.9 pg (27.0-33.4); MEAN CORPUSCULAR HGB CONC 33.5 g/dL (32.0-36.0); MEAN CORPUSCULAR VOLUME 101 fl (80-97); RED BLOOD COUNT 2.67 10^6/uL (4.35-5.55); RED CELL DISTRIBUTION WIDTH 21.1 % (11.5-14.0)
[2019-10-31 06:00] LABS: PLATELET COUNT 65 10^3/uL (150-450)
[2019-10-31 07:47] LABS: APPEARANCE,URINE CLEAR; BILIRUBIN,URINE NEGATIVE (NEGATIVE); COLOR,URINE YELLOW; GLUCOSE, URINE NEGATIVE (NEGATIVE); KETONES,URINE NEGATIVE (NEGATIVE); LEUKOCYTE ESTERASE,URINE NEGATIVE (NEGATIVE); NITRITE,URINE NEGATIVE (NEGATIVE); PROTEIN,URINE NEGATIVE (NEGATIVE); URINE SPECIFIC GRAVITY 1.008; UROBILINOGEN,URINE NEGATIVE mg/dL (<2.0)
[2019-10-31] MEDS: CARVEDILOL 12.5 MG TABLET PO SCH ×2 (09:10→22:04)
[2019-10-31] MEDS: ISOSORBIDE MONONITRATE 30 MG TAB.ER.24H PO SCH (09:11)
[2019-10-31] MEDS: VALSARTAN 40 MG TABLET PO SCH (09:11)
[2019-10-31] MEDS: DIGOXIN 0.25 MG TABLET PO SCH (09:11)
[2019-10-31] MEDS: NICOTINE 14 MG/24 HR PATCH.TD24 TD SCH (09:11)
[2019-10-31] MEDS: FLUTICASONE/UMECLIDIN/VILANTER 100-62.5-25 MCG/DOSE IH SCH (09:12)
[2019-10-31] MEDS: DOXYCYCLINE HYCLATE 100 MG in DEXTROSE 5%-WATER 250 ML IV SCH ×2 (09:13→22:03)
--- NOTE | 2019-10-31 17:32 | PDOC PROGRESS REPORT ---
Subjective Progress Note for:: 10/31/19 Subjective:: LORIE OLIVIA is a 68 year old male with a limited medical history as patient is a poor historian but known to have hypertension, hyperlipidemia, CHF, w/ pacemaker/AICD and recent LLE arterial bypass surgery (September 2019), nicotine dependence w/ continuous use who presented to the emergency department today with a complaint of several days of progressively worsening dyspnea at rest and generalized weakness. Patient report a productive cough. He denies fever, tho ugh admits to chills. No known sick contacts. Evaluation in the emergency department revealed tachypnea, hypoxia on room air, baseline renal function (CR 1.5/BUN 32), baseline proBNP (61k), CBC pending. Urinalysis pending. COVID pending. Chest x-ray is benign. Chest CT shows right middle lobe and lingular consolidation consistent with pneumonia. He is provided IV azithromycin and Rocephin; referred to the hospitalist service for further evaluation management of the above-stated complaints findings. 10/31/2019. No acute events overnight. Sitting comfortably bed and in no apparent distress, on supplemental oxygen, patient inquiring when he can go home, alert and oriented and cooperative with physical examination, answering questions appropriately denies any fever, chills, nausea, vomiting. Reason For Visit: PNEUMONIA Physical Exam Vital Signs: Temp Pulse Resp BP Pulse Ox 98.6 F 62 12 150/66 H 89 L 10/31/19 15:15 10/31/19 15:15 10/31/19 15:15 10/31/19 15:15 10/31/19 15:15 Pulse Oximeter Ambulatory Start: 10/29/19 09:55 Freq: RTDAILY Status: Active Protocol: Document 10/31/19 08:33 HCR (Rec: 10/31/19 08:34 HCR [email or web address]) Exercise Oximetry Treatment Ambulating SpO2 Charge Now No Additional RT Notes Other completed by RN Pulse Oximeter Continuous Start: 10/21/19 18:43 Freq: RTQ4 Status: Active Protocol: Document 10/31/19 12:00 HCR (Rec: 10/31/19 13:55 HCR [email or web address]) Pulse Oximetry Assessment Oxygen Saturation (92-100) 97 Oxygen Delivery Method Room Air Fraction of Inspired Oxygen (FIO2) 21 Equipment Usage Equipment in Use Continuous SpO2 Machine # 4 Intake & Output 07/30/20 07/31/20 08/01/20 06:59 06:59 06:59 Intake Total 2140 2295 370 Output Total 950 975 Balance 1190 1320 370 Weight 60.8 kg 55.1 kg General appearance: PRESENT: no acute distress, well-developed, well-nourished Head exam: PRESENT: atraumatic, normocephalic Respiratory exam: PRESENT: clear to auscultation khushboo, decreased breath sounds, prolonged expiratory phas. ABSENT: rales, rhonchi, wheezes Cardiovascular exam: PRESENT: RRR. ABSENT: diastolic murmur, rubs, systolic murmur Neurological exam: PRESENT: alert, awake, oriented to person, oriented to place, oriented to time, oriented to situation, CN II-XII grossly intact. ABSENT: motor sensory deficit Results Laboratory Results: 10/31/19 04:12 10/30/19 05:15 10/31/19 10/31/19 04:12 07:13 WBC 4.0 RBC 2.67 L Hgb 9.0 L Hct 27.0 L MCV 101 H MCH 33.9 H MCHC 33.5 RDW 21.1 H Plt Count 65 L Urine Color YELLOW Urine Appearance CLEAR Urine pH 7.0 Ur Specific [place] 1.008 Urine Protein NEGATIVE Urine Glucose (UA) NEGATIVE Urine Ketones NEGATIVE Urine Blood NEGATIVE Urine Nitrite NEGATIVE Ur Leukocyte Esterase NEGATIVE Urine RBC (Auto) 1 10/21/19 16:23 Troponin I 0.037 NT-Pro-B Natriuret Pep 55726 H Impressions: Chest CT 10/21/19 17:18 IMPRESSION: 1. Pulmonary emphysema. 2. Moderate right pleural effusion with smaller left pleural effusion. 3. Limited airspace disease in the right middle lobe and in the lingula: Pneumonia versus atelectasis. Chest X-Ray 10/28/19 06:00 IMPRESSION: Improving pneumonia. Venous Doppler Study 10/30/19 00:00 IMPRESSION: NO EVIDENCE DVT OR SVT IN THE RIGHT LEG. Assessment and Plan - Diagnosis (1) Pneumonia Qualifiers: Pneumonia type: due to unspecified organism Laterality: right Lung location: lower lobe of lung Qualified Code(s): J18.9 - Pneumonia, unspecified organism Is this a current diagnosis for this admission?: Yes Plan: Afebrile, WBC WNL. Still hypoxic and dependent on supplemental SPO2. Community-acquired pneumonia likely due to gram-positive's including Streptococcus pneumonia complicated by underlying CHF and COPD. Sputum culture with Yris Albicans/Yris Dubliniensis, possibly colonized however since patient's respiratory status is not improving we will add antimicrobial coverage Received 3 days of IV azithromycin. Received 6 days of IV ceftriaxone. Received 4 days of IV fluconazole. Currently on doxycycline 100 mg IV every 12 hours Blood cultures negative so far. (2) Acute respiratory failure with hypoxia Is this a current diagnosis for this admission?: Yes Plan: Due to community-acquired pneumonia complicated by underlying CHF and COPD. Patient continues to have productive cough Continues require supplemental O2 Continue albuterol HFA 2 puffs every 4 hours Continue albuterol nebs every 6 hours as needed Continue guaifenesin 200 mg p.o. every 4 hours as needed cough SARS-CoV-2 negative (3) CAD (coronary artery disease) Is this a current diagnosis for this admission?: Yes Plan: Denies any anginal symptoms. Continue isosorbide mononitrate 30 mg p.o. daily, beta-blockers, ARB, statins and antiplatelets. (4) CHF (congestive heart failure), NYHA class I Qualifiers: Congestive heart failure type: unspecified Qualified Code(s): I50.9 - Heart failure, unspecified Is this a current diagnosis for this admission?: No Plan: No JVD no peripheral edema however came in with proBNP of 58,000. Hypoxic still dependent on supplemental CO2. Continue cardiac diet, IV diuretics, beta-blockers, ARB, digoxin. Pending 2D echo. 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 (5) HTN (hypertension) Is this a current diagnosis for this admission?: Yes Plan: Adequate BP control Continue medications as noted above (6) Suspected COVID-19 virus infection Is this a current diagnosis for this admission?: Yes Plan: COVID-19 negative. Presented with with d-dimer 13.24 Ferritin, LDH Was a started on IV azithromycin, ceftriaxone, Decadron, zinc, vitamin C, vitamin D, melatonin supplementation (7) Tobacco dependence Is this a current diagnosis for this admission?: No Plan: Continue nicotine patch - Time Time Spent with patient: 25-34 minutes Smoking Cessation Education: 3 to 10 minutes Medications reviewed and adjusted accordingly: Yes Anticipated Discharge Disposition: Home, Self Care Anticipated Discharge Timeframe: within 48 hours
[2019-10-31] MEDS: ATORVASTATIN CALCIUM 40 MG TABLET PO SCH (22:04)
[2019-10-31] MEDS: MELATONIN 5 MG TABLET PO PRN (22:12)
[2019-11-01] MEDS: HEPARIN SOD (PORCINE) 5,000 UNIT/ML 1 ML VIAL SUBCUT SCH (05:23)
[2019-11-01 07:11] LABS: ABSOLUTE EOSINOPHILS # (AUTO) 0.1 10^3/uL (0.0-0.6); ABSOLUTE LYMPHOCYTES (AUTO) 0.6 10^3/uL (0.5-4.7); ABSOLUTE MONOCYTES (AUTO) 0.5 10^3/uL (0.1-1.4); ABSOLUTE NEUT (AUTO) 3.2 10^3/uL (1.7-8.2); BASOPHILS % (AUTO) 0.5 % (0-2); EOSINOPHILS % (AUTO) 1.5 % (0-6); HEMATOCRIT 27.2 % (37.9-51.0); LYMPHOCYTES % (AUTO) 13.6 % (13-45); MEAN CORPUSCULAR HEMOGLOBIN 33.8 pg (27.0-33.4); MEAN CORPUSCULAR HGB CONC 33.2 g/dL (32.0-36.0); MEAN CORPUSCULAR VOLUME 102 fl (80-97); MONOCYTES % (AUTO) 12.1 % (3-13); RED BLOOD COUNT 2.67 10^6/uL (4.35-5.55); SEGMENTED NEUTROPHILS % (AUTO) 72.3 % (42-78); TOTAL CELLS COUNTED % (AUTO) 100 %; WHITE BLOOD COUNT 4.5 10^3/uL (4.0-10.5)
[2019-11-01 07:31] LABS: BLOOD UREA NITROGEN 35 mg/dL (7-20); CALCIUM 8.5 mg/dL (8.4-10.2); GLUCOSE 87 mg/dL (75-110); PHOSPHORUS 2.8 mg/dL (2.5-4.5); POTASSIUM 4.2 mmol/L (3.6-5.0)
[2019-11-01 07:37] LABS: CARBON DIOXIDE 29 mmol/L (22-30); CHLORIDE 103 mmol/L (98-107)
[2019-11-01 07:39] LABS: PLATELET COUNT 64 10^3/uL (150-450)
[2019-11-01 07:45] LABS: ANION GAP 2 (5-19)
[2019-11-01 08:04] VITALS: BP 131/59
--- NOTE | 2019-11-01 09:28 | XCELERA REPORT ---
[address] [address] Transthoracic Echocardiogram Report Name: LORIE OLIVIA Age: 68 yrs Gender: Male : 1950 Patient Status: Inpatient Patient Location: [address] [place], [place] [id number] Study Date: 10/30/2019 08:16 AM History: CHF Height: 65 in Weight: 134 lb BSA: 1.7 m2 Procedure: A complete two-dimensional transthoracic echocardiogram was performed (2D, M-mode, spectral and color flow Doppler). Reason For Study: chf Ordering Physician: PATRICK MCDOWELL Performed By: Tracy Barnes Interpretation Summary Left ventricular systolic function is moderately reduced. The Ejection Fraction estimate is 35-40% The right ventricular systolic function is mildly reduced. There is a moderate amount of mitral regurgitation There is no aortic valve stenosis There is a trace amount of tricuspid regurgitation There is mild pulmonary hypertension by echo Minimal pericardial effusion. MMode/2D Measurements & Calculations RVDd: 3.0 cm LVIDd: 6.2 cm FS: 18.5 % Ao root diam: 3.4 cm IVSd: 1.00 cm LVIDs: 5.0 cm EDV(Teich): 193.1 ml Ao root area: 9.0 cm2 LVPWd: 0.97 cm ESV(Teich): 120.6 ml EF(Teich): 37.5 % Doppler Measurements & Calculations MV E max jeanine: MV dec slope: Ao V2 max: LV V1 max P.9 cm/sec 728.1 cm/sec2 118.2 cm/sec 3.9 mmHg MV A max jeanine: MV dec time: Ao max P.6 mmHg LV V1 max: 76.5 cm/sec 0.18 sec 98.5 cm/sec MV E/A: 1.7 MR max jeanine: PA V2 max: PI end-d jeanine: TR max jeanine: 701.4 cm/sec 87.1 cm/sec 140.4 cm/sec 303.9 cm/sec MR max PG: PA max P.0 mmHg TR max P.8 mmHg 37.0 mmHg Left Ventricle The left ventricle is moderately to severly dilated. Left ventricular systolic function is moderately reduced. The Ejection Fraction estimate is 35-40%. Doppler measurements suggest reversible restrictive left ventricular relaxation, which is associated with grade III/IV or moderate diastolic dysfunction. There is mild to moderate global hypokinesis of the left ventricle. Right Ventricle The right ventricle is grossly normal size. The right ventricular systolic function is mildly reduced. Atria The right atrium is mild to moderately dilated. The left and right artia are moderately dilated. The interatrial septum is intact with no evidence for an atrial septal defect. There is no Doppler evidence for an interatrial shunt. Mitral Valve There is no mitral valve stenosis. There is a moderate amount of mitral regurgitation. The mitral regurgitant jet is eccentrically directed. Aortic Valve The aortic valve opens well. The aortic valve is trileaflet. The aortic valve is normal in structure and function. There is no aortic valve stenosis. No aortic regurgitation is present. Tricuspid Valve The tricuspid valve is normal in structure and function. There is no tricuspid stenosis. There is a trace amount of tricuspid regurgitation. Best estimated right ventricular systolic pressure is elevated at 40-50mmHg. There is mild pulmonary hypertension by echo. Pulmonic Valve The pulmonic valve is normal in structure and function. There is a trace amount of pulmonic regurgitation. Great Vessels The aortic root is normal size. The inferior vena cava appeared normal and decreased > 50% with respiration (RAP 5-10 mmHg). Effusions Minimal pericardial effusion. : PATRICK MCDOWELL Anil
[2019-11-01] MEDS: FLUTICASONE/UMECLIDIN/VILANTER 100-62.5-25 MCG/DOSE IH SCH (10:20)
[2019-11-01] MEDS: DIGOXIN 0.25 MG TABLET PO SCH (10:21)
[2019-11-01] MEDS: ISOSORBIDE MONONITRATE 30 MG TAB.ER.24H PO SCH (10:21)
[2019-11-01] MEDS: CARVEDILOL 12.5 MG TABLET PO SCH (10:21)
[2019-11-01] MEDS: VALSARTAN 40 MG TABLET PO SCH (10:21)
[2019-11-01] MEDS: NICOTINE 14 MG/24 HR PATCH.TD24 TD SCH (10:21)
[2019-11-01] MEDS: DOXYCYCLINE HYCLATE 100 MG in DEXTROSE 5%-WATER 250 ML IV SCH (10:22)
--- NOTE | 2019-11-06 12:09 | PDOC DISCHARGE SUMMARY ---
Impression - Admit/DC Date/PCP Admission Date/Primary Care Provider: 10/21/19 18:29 [facility] Discharge Date: 11/01/19 - Discharge Diagnosis (1) Pneumonia Is this a current diagnosis for this admission?: Yes (2) Acute respiratory failure with hypoxia Is this a current diagnosis for this admission?: Yes (3) CAD (coronary artery disease) Is this a current diagnosis for this admission?: Yes (4) CHF (congestive heart failure), NYHA class I Is this a current diagnosis for this admission?: No (5) HTN (hypertension) Is this a current diagnosis for this admission?: Yes (6) Suspected COVID-19 virus infection Is this a current diagnosis for this admission?: Yes (7) Tobacco dependence Is this a current diagnosis for this admission?: No - Additional Information Resuscitation Status: Full Code Discharge Diet: Cardiac Discharge Activity: Activity As Tolerated, Balance Activity w/Rest, Weigh Daily Referrals: [facility] [[facility] - Follow up as needed ([facility]) Prescriptions: Doxycycline Hyclate 100 mg PO BID 5 Days #10 tablet.dr Home Medications: Albuterol Sulfate [Proair HFA Inhalation Aerosol 8.5 gm MDI] 2 puff IH Q6HP PRN 10/22/19 Carvedilol 25 mg PO BID 10/22/19 Clopidogrel Bisulfate [Plavix 75 mg Tablet] 75 mg PO DAILY 10/22/19 Digoxin [Lanoxin 0.25 mg Tablet] 0.25 mg PO DAILY 10/22/19 Furosemide [Lasix 20 mg Tablet] 20 mg PO TUTH 10/22/19 Isosorbide Mononitrate [Imdur 30 mg Tablet.er] 30 mg PO DAILY 10/22/19 Nitroglycerin [Nitrostat 0.4 mg (1/150 Gr) Tabs 25/Bottle] 0.4 mg SL Q5MP PRN 10/22/19 Rosuvastatin Calcium [Crestor] 20 mg PO QHS 10/22/19 Tiotropium Br/Olodaterol HCl [Stiolto Respimat Inhal [place]] 2 puff IH DAILY 10/22/19 Tiotropium [place] [Spiriva Handihaler 5 Cap/Kit (18 Mcg/Cap)] 1 cap IH DAILY 10/22/19 Valsartan [Diovan 80 mg Tablet] 40 mg PO DAILY 10/22/19 Zolpidem Tartrate [Ambien] 10 mg PO HSP PRN 10/22/19 Doxycycline Hyclate 100 mg PO BID 5 Days #10 tablet. 11/01/19 History of Present Illiness History of Present Illness: LORIE OLIVIA is a 68 year old male with a limited medical history as patient is a poor historian but known to have hypertension, hyperlipidemia, CHF, w/ pacemaker/AICD and recent LLE arterial bypass surgery (September 2019), nicotine dependence w/ continuous use who presented to the emergency department today with a complaint of several days of progressively worsening dyspnea at rest and generalized weakness. Patient report a productive cough. He denies fever, though admits to chills. No known sick contacts. Evaluation in the emergency department revealed tachypnea, hypoxia on room air, baseline renal function (CR 1.5/BUN 32), baseline proBNP (61k), CBC pending. Urinalysis pending. COVID pending. Chest x-ray is benign. Chest CT shows right middle lobe and lingular consolidation consistent with pneumonia. He is provided IV azithromycin and Rocephin; referred to the hospitalist service for further evaluation management of the above-stated complaints findings. Hospital Course Hospital Course: (1) Pneumonia Sputum culture with Yris Albicans/Yris Dubliniensis, possibly colonized however since patient's respiratory status is not improving we will add antimicrobial coverage Received 4 days of IV azithromycin. Received 7 days of IV ceftriaxone. Received 5 days of IV fluconazole. Was switched to doxycycline 100 mg IV every 12 hours All cultures except sputum culture remain negative. (2) Acute respiratory failure with hypoxia Due to community-acquired pneumonia complicated by underlying CHF and COPD. Continued require supplemental O2 Continud albuterol HFA 2 puffs every 4 hours Continud albuterol nebs every 6 hours as needed Continud guaifenesin 200 mg p.o. every 4 hours as needed cough SARS-CoV-2 negative (3) CAD (coronary artery disease) Denied any anginal symptoms. Continued isosorbide mononitrate 30 mg p.o. daily, beta-blockers, ARB, statins and antiplatelets. (4) CHF (congestive heart failure), NYHA class I No JVD no peripheral edema however came in with proBNP of 58,000. Continued cardiac diet, IV diuretics, beta-blockers, ARB, digoxin. His hose cementer is Dr. Castaneda who was consulted. 2D echo patient fraction 30 to 35%. Asked to resume home meds upon discharge outpatient Patient was advised to follow-up with his cardiology Dr. Castaneda as outpatient. (5) HTN (hypertension) Adequate BP control Continued medications as noted above Advised to resume home meds upon discharge. (6) Suspected COVID-19 virus infection COVID-19 negative. Presented with with d-dimer 13.24 Ferritin, LDH Received a complete course of course of IV azithromycin, ceftriaxone, Decadron, zinc, vitamin C, vitamin D, melatonin supplementation (7) Tobacco dependence Continue nicotine patch Physical Exam Vital Signs: Temp Pulse Resp BP Pulse Ox 98.3 F 62 16 131/59 H 90 L 11/01/19 11:17 11/01/19 11:17 11/01/19 11:17 11/01/19 11:17 11/01/19 11:17 Pulse Oximeter Ambulatory Start: 10/29/19 09:55 Freq: RTDAILY Status: Discharge Protocol: Document 10/31/19 08:33 HCR (Rec: 10/31/19 08:34 HCR [id number]) Exercise Oximetry Treatment Ambulating SpO2 Charge Now No Additional RT Notes Other completed by RN Pulse Oximeter Continuous Start: 10/21/19 18:43 Freq: RTQ4 Status: Discharge Protocol: Document 11/01/19 00:11 CMI (Rec: 11/01/19 00:11 CMI [id number]) Pulse Oximetry Assessment Oxygen Saturation (92-100) 90 Oxygen Delivery Method Room Air Fraction of Inspired Oxygen (FIO2) 21 Equipment Usage Equipment in Use Continuous Pulse Oximeter 24 Hour Charge Charge Now Continuous SpO2 Machine # 4 General appearance: PRESENT: no acute distress, well-developed, well-nourished Head exam: PRESENT: atraumatic, normocephalic Respiratory exam: PRESENT: clear to auscultation [place]. ABSENT: rales, rhonchi, wheezes Cardiovascular exam: PRESENT: RRR. ABSENT: diastolic murmur, rubs, systolic murmur Pulses: PRESENT: normal dorsalis pedis pul GI/Abdominal exam: PRESENT: normal bowel sounds, soft. ABSENT: distended, guarding, mass, organolmegaly, rebound, tenderness Extremities exam: PRESENT: full ROM. ABSENT: calf tenderness, clubbing, pedal edema Neurological exam: PRESENT: alert, awake, oriented to person, oriented to place, oriented to time, oriented to situation, CN II-XII grossly intact. ABSENT: motor sensory deficit Skin exam: PRESENT: dry, intact, warm. ABSENT: cyanosis, rash Results Laboratory Results: WBC 4.5 10^3/uL (4.0-10.5) 11/01/19 06:38 RBC 2.67 10^6/uL (4.35-5.55) L 11/01/19 06:38 Hgb 9.0 g/dL (13.5-17.0) L 11/01/19 06:38 Hct 27.2 % (37.9-51.0) L 11/01/19 06:38 MCV 102 fl (80-97) H 11/01/19 06:38 MCH 33.8 pg (27.0-33.4) H 11/01/19 06:38 MCHC 33.2 g/dL (32.0-36.0) 11/01/19 06:38 RDW 21.0 % (11.5-14.0) H 11/01/19 06:38 Plt Count 64 10^3/uL (150-450) L 11/01/19 06:38 Lymph % (Auto) 13.6 % (13-45) 11/01/19 06:38 [place] % (Auto) 12.1 % (3-13) 11/01/19 06:38 Eos % (Auto) 1.5 % (0-6) 11/01/19 06:38 Baso % (Auto) 0.5 % (0-2) 11/01/19 06:38 Absolute Neuts (auto) 3.2 10^3/uL (1.7-8.2) 11/01/19 06:38 Absolute Lymphs (auto) 0.6 10^3/uL (0.5-4.7) 11/01/19 06:38 Absolute Monos (auto) 0.5 10^3/uL (0.1-1.4) 11/01/19 06:38 Absolute Eos (auto) 0.1 10^3/uL (0.0-0.6) 11/01/19 06:38 Absolute Basos (auto) 0.0 10^3/uL (0.0-0.2) 11/01/19 06:38 Total Counted 100 10/25/19 06:15 Seg Neutrophils % 72.3 % (42-78) 11/01/19 06:38 Seg Neuts % (Manual) 96 % (42-78) H 10/25/19 06:15 Lymphocytes % (Manual) 3 % (13-45) L 10/25/19 06:15 Monocytes % (Manual) 1 % (3-13) L 10/25/19 06:15 Eosinophils % (Manual) 0 % (0-6) 10/25/19 06:15 Basophils % (Manual) 0 % (0-2) 10/25/19 06:15 Abs Neuts (Manual) 5.4 10^3/uL (1.7-8.2) 10/25/19 06:15 Abs Lymphs (Manual) 0.2 10^3/uL (0.5-4.7) L 10/25/19 06:15 Abs Monocytes (Manual) 0.1 10^3/uL (0.1-1.4) 10/25/19 06:15 Absolute Eos (Manual) 0.0 10^3/uL (0.0-0.6) 10/25/19 06:15 Abs Basophils (Manual) 0.0 10^3/uL (0.0-0.2) 10/25/19 06:15 Toxic Vacuolation PRESENT 10/24/19 04:13 Platelet Estimate Cancelled 10/21/19 16:23 Platelet Comment DECREASED 10/25/19 06:15 Polychromasia SLIGHT 10/24/19 04:13 Poikilocytosis 1+ 10/25/19 06:15 Anisocytosis 3+ 10/25/19 06:15 Macrocytosis 2+ 10/24/19 04:13 Ovalocytes 1+ 10/25/19 06:15 PT 17.7 SEC (11.4-15.4) H 10/22/19 17:42 INR 1.44 10/22/19 17:42 INR (Anticoag Therapy) Cancelled 10/22/19 15:43 APTT 34.2 SEC (23.5-35.8) 10/22/19 17:42 Fibrinogen 95 mg/dL (209-497) L* 10/22/19 17:42 D-Dimer 12.53 ug/mL (0.00-0.50) H 10/30/19 05:15 VBG pH 7.37 (7.30-7.42) 10/21/19 17:10 VBG pCO2 45.6 mmHg (35-63) 10/21/19 17:10 VBG HCO3 25.6 mmol/L (20-32) 10/21/19 17:10 VBG Base Excess 0 mmol/L 10/21/19 17:10 Sodium 134.0 mmol/L (137-145) L 11/01/19 06:38 Potassium 4.2 mmol/L (3.6-5.0) 11/01/19 06:38 Chloride 103 mmol/L (98-107) 11/01/19 06:38 Carbon Dioxide 29 mmol/L (22-30) 11/01/19 06:38 Anion Gap 2 (5-19) L 11/01/19 06:38 BUN 35 mg/dL (7-20) H 11/01/19 06:38 Creatinine 1.08 mg/dL (0.52-1.25) 11/01/19 06:38 Est GFR ( Amer) > 60 (>60) 11/01/19 06:38 Est GFR (MDRD) Non-Af > 60 (>60) 11/01/19 06:38 Glucose 87 mg/dL (75-110) 11/01/19 06:38 Hemoglobin A1c % 5.0 % (4.7-6.0) 10/22/19 06:02 Lactic Acid 1.0 mmol/L (0.7-2.1) 10/21/19 23:23 Calcium 8.5 mg/dL (8.4-10.2) 11/01/19 06:38 Phosphorus 2.8 mg/dL (2.5-4.5) 11/01/19 06:38 Magnesium 1.7 mg/dL (1.6-2.3) 11/01/19 06:38 Ferritin 191.00 ng/mL (17.9-464.0) 10/21/19 20:25 Total Bilirubin 0.5 mg/dL (0.2-1.3) 10/24/19 04:13 Direct Bilirubin 0.2 mg/dL (0.0-0.4) 10/24/19 04:13 Neonat Total Bilirubin Not Reportable 10/24/19 04:13 Neonat Direct Bilirubin Not Reportable 10/24/19 04:13 Neonat Indirect Bili Not Reportable 10/24/19 04:13 AST 62 U/L (17-59) H 10/24/19 04:13 ALT 40 U/L (<50) 10/24/19 04:13 Alkaline Phosphatase 109 U/L (38-126) 10/24/19 04:13 Lactate Dehydrogenase 245 U/L (120-246) 10/21/19 20:25 Troponin I 0.037 ng/mL 10/21/19 16:23 C-Reactive Protein < 5.0 mg/L (<10.0) 10/21/19 20:25 NT-Pro-B Natriuret Pep 98612 pg/mL (<125) H 10/21/19 16:23 Total Protein 5.5 g/dL (6.3-8.2) L 10/24/19 04:13 Albumin 2.8 g/dL (3.5-5.0) L 10/24/19 04:13 Urine Color YELLOW 10/31/19 07:13 Urine Appearance CLEAR 10/31/19 07:13 Urine pH 7.0 (5.0-9.0) 10/31/19 07:13 Ur Specific [place] 1.008 10/31/19 07:13 Urine Protein NEGATIVE mg/dL (NEGATIVE) 10/31/19 07:13 Urine Glucose (UA) NEGATIVE mg/dL (NEGATIVE) 10/31/19 07:13 Urine Ketones NEGATIVE mg/dL (NEGATIVE) 10/31/19 07:13 Urine Blood NEGATIVE (NEGATIVE) 10/31/19 07:13 Urine Nitrite NEGATIVE (NEGATIVE) 10/31/19 07:13 Urine Bilirubin NEGATIVE (NEGATIVE) 10/31/19 07:13 Urine Urobilinogen NEGATIVE mg/dL (<2.0) 10/31/19 07:13 Ur Leukocyte Esterase NEGATIVE (NEGATIVE) 10/31/19 07:13 Urine WBC (Auto) 0 /HPF 10/29/19 06:35 Urine RBC (Auto) 1 /HPF 10/31/19 07:13 Squamous Epi Cells Auto <1 /HPF 10/25/19 06:00 Urine Mucus (Auto) RARE /LPF 10/29/19 06:35 Urine Ascorbic Acid 40 (NEGATIVE) H 10/31/19 07:13 COVID-19 Source NASOPHARYNGEAL 10/21/19 18:49 COVID-19 (JONH) NOT DETECTED 10/21/19 18:49 Slides for Path Review Cancelled 10/21/19 16:23 10/21/19 16:23 Troponin I 0.037 NT-Pro-B Natriuret Pep 31097 H Impressions: Chest X-Ray 10/21/19 16:25 IMPRESSION: Cardiomegaly without pulmonary edema. Chronic lung changes. Chest CT 10/21/19 17:18 IMPRESSION: 1. Pulmonary emphysema. 2. Moderate right pleural effusion with smaller left pleural effusion. 3. Limited airspace disease in the right middle lobe and in the lingula: Pneumonia versus atelectasis. Chest X-Ray 10/23/19 00:00 IMPRESSION: Small bilateral pleural effusions are stable. Compressive atelectasis in the right mid lung and right lung base, stable. Background moderate pulmonary emphysema is unchanged. Chest X-Ray 10/28/19 06:00 IMPRESSION: Improving pneumonia. Venous Doppler Study 10/30/19 00:00 IMPRESSION: NO EVIDENCE DVT OR SVT IN THE RIGHT LEG. Plan Time Spent: Greater than 30 Minutes Stroke Is this a Stroke Patient?: No Acute Heart Failure - Is this a Heart Failure Patient?: No
== END 2019-11-01 12:56 | disposition home or self-care (01) | DRG 193 ==
LOC: ER 16:10 → EH 18:29 → 3N 21:05 → 4S 10-23 16:23
PROVIDERS: ADMIT Hospitalist; ATTEND Internal Medicine
DX: J18.9 Pneumonia, unspecified organism (principal); J96.01 Acute respiratory failure with hypoxia; I13.0 Hypertensive heart and chronic kidney disease with heart failure and stage 1 through stage 4 chronic kidney disease, or unspecified chronic kidney disease; D61.818 Other pancytopenia; J90 Pleural effusion, not elsewhere classified; I50.9 Heart failure, unspecified; D69.6 Thrombocytopenia, unspecified; K21.9 Gastro-esophageal reflux disease without esophagitis; J44.9 Chronic obstructive pulmonary disease, unspecified; K76.1 Chronic passive congestion of liver; D64.9 Anemia, unspecified; N18.9 Chronic kidney disease, unspecified; E78.00 Pure hypercholesterolemia, unspecified; F17.210 Nicotine dependence, cigarettes, uncomplicated; I25.2 Old myocardial infarction; Z20.828 Contact with and (suspected) exposure to other viral communicable diseases; Z95.1 Presence of aortocoronary bypass graft; Z95.810 Presence of automatic (implantable) cardiac defibrillator; Z95.5 Presence of coronary angioplasty implant and graft; Z79.01 Long term (current) use of anticoagulants; Z79.51 Long term (current) use of inhaled steroids; Z79.899 Other long term (current) drug therapy
CPT/HCPCS: 36415; 71045; 71250; 80048; 80053; 81001; 82728; 82803; 83036; 83605; 83615; 83735; 83880; 84100; 84484; 85025; 85027; 85379; 85384; 85610; 85730; 86140; 87040; 87070; 87205; 87635; 93005; 93010; 93306; 93971; 94640; 94667; 94762; 94799; 99291; C9803; J0456; J0696; J1100; J1450; J3490; J7030; J7060

== ENCOUNTER 2019-11-11 10:07 | Observation (INO) | payer OTHER, MEDICARE ==
--- NOTE | 2019-11-11 10:22 | ER Document Report ---
ED Medical Screen (RME) - General Chief Complaint: Edema Stated Complaint: LEG SWELLING Time Seen by Provider: 11/11/19 10:14 [facility]: [facility] [[facility]] - Follow up as needed Mode of Arrival: Wheelchair Information source: Patient Notes: 69-year-old old male presents to ED for complaint of swelling to both legs and the left arm. He states that last week he got out of the hospital after being in the hospital for 12 days. He states it was pretty much the same reason. He states he had has had an OK x2 and he had a surgery to replace arteries in his leg on the left side 2 and half months ago. He states all the time he was here for the 12 days they were given him IV Lasix and he was still having swelling in the legs. He states he smokes about 8 cigarettes a day he is down a lot from what it was and does not drink or use any illicit drugs. He is alert and oriented at this time. We will get blood chest x-ray EKG and saline lock and he will be seen by another provider. I have greeted and performed a rapid initial assessment of this patient. A comprehensive ED assessment and evaluation of the patient, analysis of test results and completion of medical decision making process will be conducted by an additional ED providers. TRAVEL OUTSIDE OF THE [place] IN LAST 30 DAYS: No - Related Data Allergies/Adverse Reactions: No Known Allergies Allergy (Verified 09/18/19 13:47) Past Medical History - Past Medical History Cardiac Medical History: Reports: Hx Congestive Heart Failure, Hx Heart Attack, Hx Hypercholesterolemia, Hx Hypertension Pulmonary Medical History: Reports: Hx COPD Renal/ Medical History: Denies: Hx Peritoneal Dialysis GI Medical History: Reports: Hx Gastroesophageal Reflux Disease Psychiatric Medical History: Denies: Hx Depression Past Surgical History: Reports: Hx Abdominal Surgery - hernia x2, Hx Cardiac Catheterization - CABG, Hx Cardiac Surgery - stent, pacemaker/defibulator placed, Hx Coronary Artery Bypass Graft, Hx Herniorrhaphy - bilateral inguinal hernia repair, Hx Orthopedic Surgery, Hx Pacemaker Physical Exam - Vital signs Vitals: Temp Pulse Resp BP Pulse Ox 97.8 F 71 16 152/85 H 96 11/11/19 10:10 11/11/19 10:10 11/11/19 10:10 11/11/19 10:10 11/11/19 10:10 Course - Vital Signs Vital signs: Temp Pulse Resp BP Pulse Ox 97.8 F 71 16 152/85 H 96 11/11/19 10:10 11/11/19 10:10 11/11/19 10:10 11/11/19 10:10 11/11/19 10:10 Doctor's Discharge - Discharge [facility]errals: [facility] [[facility]] - Follow up as needed
--- NOTE | 2019-11-11 11:25 | RADIOLOGY REPORT (SQ) ---
EXAM DESCRIPTION: CHEST 2 VIEWS IMAGES COMPLETED DATE/TIME: 11/11/2019 11:14 am REASON FOR STUDY: peripheral edema COMPARISON: 10/28/2019. EXAM PARAMETERS: NUMBER OF VIEWS: two views TECHNIQUE: Digital Frontal and Lateral radiographic views of the chest acquired. RADIATION DOSE: NA LIMITATIONS: none FINDINGS: LUNGS AND PLEURA: Linear densities in the lung bases. Small pleural effusions. MEDIASTINUM AND HILAR STRUCTURES: No masses or contour abnormalities. HEART AND VASCULAR STRUCTURES: Borderline cardiomegaly. Mild vascular prominence. BONES: No acute findings. HARDWARE: Defibrillator. OTHER: No other significant finding. IMPRESSION: BASILAR ATELECTASIS VERSUS SCARRING WITH SMALL PLEURAL EFFUSIONS. BORDERLINE CARDIOMEGA LY WITH MILD VASCULAR PROMINENCE. TECHNICAL DOCUMENTATION: JOB ID: [id number] 2010 [employer] All Rights Reserved Reading location - IP/workstation name: [email or web address]
[2019-11-11 11:28] LABS: ABSOLUTE LYMPHOCYTES (AUTO) 0.5 10^3/uL (0.5-4.7); ABSOLUTE MONOCYTES (AUTO) 0.3 10^3/uL (0.1-1.4); ABSOLUTE NEUT (AUTO) 2.1 10^3/uL (1.7-8.2); BASOPHILS % (AUTO) 0.8 % (0-2); EOSINOPHILS % (AUTO) 1.4 % (0-6); HEMATOCRIT 27.9 % (37.9-51.0); HEMOGLOBIN 9.1 g/dL (13.5-17.0); LYMPHOCYTES % (AUTO) 17.4 % (13-45); MEAN CORPUSCULAR HEMOGLOBIN 34.2 pg (27.0-33.4); MEAN CORPUSCULAR HGB CONC 32.7 g/dL (32.0-36.0); MEAN CORPUSCULAR VOLUME 105 fl (80-97); MONOCYTES % (AUTO) 8.9 % (3-13); RED BLOOD COUNT 2.67 10^6/uL (4.35-5.55); RED CELL DISTRIBUTION WIDTH 19.6 % (11.5-14.0); SEGMENTED NEUTROPHILS % (AUTO) 71.5 % (42-78); TOTAL CELLS COUNTED % (AUTO) 100 %; WHITE BLOOD COUNT 2.9 10^3/uL (4.0-10.5)
[2019-11-11 11:46] LABS: ALBUMIN 3.3 g/dL (3.5-5.0); ALKALINE PHOSPHATASE 222 U/L (38-126); ASPARTATE AMINO TRANSFERASE 44 U/L (17-59); BILIRUBIN,DIRECT 0.2 mg/dL (0.0-0.4); BILIRUBIN,TOTAL 0.7 mg/dL (0.2-1.3); BLOOD UREA NITROGEN 25 mg/dL (7-20); CALCIUM 8.6 mg/dL (8.4-10.2); GLUCOSE 95 mg/dL (75-110); POTASSIUM 4.1 mmol/L (3.6-5.0); TOTAL PROTEIN 6.1 g/dL (6.3-8.2)
[2019-11-11 11:52] LABS: ANION GAP 4 (5-19); CARBON DIOXIDE 26 mmol/L (22-30); CHLORIDE 107 mmol/L (98-107)
[2019-11-11 11:58] LABS: PLATELET COUNT 75 10^3/uL (150-450)
[2019-11-11 11:59] LABS: APPEARANCE,URINE SLIGHTLY-CLOUDY; BILIRUBIN,URINE NEGATIVE (NEGATIVE); GLUCOSE, URINE NEGATIVE (NEGATIVE); KETONES,URINE NEGATIVE (NEGATIVE); LEUKOCYTE ESTERASE,URINE NEGATIVE (NEGATIVE); NITRITE,URINE NEGATIVE (NEGATIVE); PROTEIN,URINE 100 mg/dL (NEGATIVE); URINE SPECIFIC GRAVITY 1.023
[2019-11-11 12:01] LABS: COLOR,URINE DARK YELLOW
--- NOTE | 2019-11-11 14:03 | ER Document Report ---
ED General - General Chief Complaint: Edema Stated Complaint: LEG SWELLING Time Seen by Provider: 11/11/19 10:14 Mode of Arrival: Wheelchair Notes: Patient is a 69-year-old male who presents emergency department with a chief complaint of bilateral lower extremity swelling, left upper extremity swelling, and shortness of breath upon exertion. Patient states that he was hospitalized recently for pneumonia and CHF. Patient states that he did start to feel better, but feels he is back to where he was prior. Patient states that he has had a cough since prior to his recent admission. He states that he gets short o f breath walking short distances. TRAVEL OUTSIDE OF THE [place] IN LAST 30 DAYS: No - Related Data Allergies/Adverse Reactions: No Known Allergies Allergy (Verified 09/18/19 13:47) Past Medical History - General Information source: Patient - Social History Smoking Status: Current Every Day Smoker Family History: Reviewed & Not Pertinent - Past Medical History Cardiac Medical History: Reports: Hx Congestive Heart Failure, Hx Heart Attack, Hx Hypercholesterolemia, Hx Hypertension Pulmonary Medical History: Reports: Hx COPD Renal/ Medical History: Denies: Hx Peritoneal Dialysis GI Medical History: Reports: Hx Gastroesophageal Reflux Disease Psychiatric Medical History: Denies: Hx Depression Past Surgical History: Reports: Hx Abdominal Surgery - hernia x2, Hx Cardiac Catheterization - CABG, Hx Cardiac Surgery - stent, pacemaker/defibulator placed, Hx Coronary Artery Bypass Graft, Hx Herniorrhaphy - bilateral inguinal hernia repair, Hx Orthopedic Surgery, Hx Pacemaker Review of Systems - Review of Systems Notes: REVIEW OF SYSTEMS: CONSTITUTIONAL : Denies recent illness. Denies recent unintentional weight loss. Denies fever, chills, or sweats. EENT: Denies eye, ear, throat, or mouth pain, discharge, or symptoms. Denies nasal or sinus congestion. CARDIOVASCULAR: Denies chest pain. RESPIRATORY: See HPI. GASTROINTESTINAL: Denies nausea, vomiting, and diarrhea. Denies abdominal pain. Denies constipation. GENITOURINARY: Denies difficulty urinating, burning, blood in urine, urgency or frequency. MUSCULOSKELETAL: Denies neck and back pain. See HPI. SKIN: Denies rash, itchiness, or lesions HEMATOLOGIC : Denies easy bruising or bleeding. LYMPHATIC: Denies swollen, painful, enlarged glands. NEUROLOGICAL: Denies no numbness or tingling denies weakness. Denies headache. Denies altered mental status. Denies alteration in speech. PSYCHIATRIC: Denies stress, anxiety, alteration in sleep patterns, or depression. All other systems reviewed and negative. Physical Exam - Vital signs Vitals: Temp Pulse Resp BP Pulse Ox 97.8 F 71 16 152/85 H 96 11/11/19 10:10 11/11/19 10:10 11/11/19 10:10 11/11/19 10:10 11/11/19 10:10 - Notes Notes: PHYSICAL EXAMINATION: GENERAL: Appears well, healthy, well-nourished, no acute distress. HEAD: Normocephalic, atraumatic. EYES: PERRL, conjunctiva normal, all extraocular movements intact, sclera nonicteric ENT: Moist mucous membranes. NECK: Supple, no noticeable swelling, redness, rash. Normal range of motion. LUNGS: Diminished breath sounds in bilateral bases. CARDIOVASCULAR: S1-S2, regular rate, regular rhythm. Radial pulses 2+, normal. ABDOMEN: Normoactive bowel sounds. Soft, nontender, no guarding, no rebound tenderness, and no masses palpated. EXTREMITIES: Normal strength and range of motion. Edema noted to left upper extremity. No edema noted to lower extremities or right upper extremity. NEUROLOGICAL: Moves all extremities upon command. Strength 5/5 in all extremities. PSYCH: Normal mood, normal affect. SKIN: Warm, dry. No rash, lesions, ulcerations noted. Normal skin turgor. Course - Re-evaluation Re-evalutation: 11/11/19 14:01 Patient states that his swelling of his lower extremities has gone down after lying down. Patient had exertional this of breath even just taking his pants off. He ended up asking for oxygen. 11/11/19 14:09 I was able to take patient off the oxygen and told him we will draw an ABG. 11/11/19 14:[address] Nguyen, the hospitalist. He would like me to speak with Dr. Brizuela, which I was able to speak with him and discussed the patient's symptoms. Dr. Brizuela will call Dr. Nguyen and they will call me back. - Vital Signs Vital signs: Temp Pulse Resp BP Pulse Ox 97.8 F 71 33 H 141/85 H 100 11/11/19 10:10 11/11/19 10:10 11/11/19 15:00 11/11/19 15:00 11/11/19 15:00 - Laboratory Result Diagrams: 11/11/19 11:12 11/11/19 11:12 Laboratory results interpreted by me: 11/11/19 11/11/19 11/11/19 10:30 11:12 11:12 WBC 2.9 L RBC 2.67 L Hgb 9.1 L Hct 27.9 L MCV 105 H MCH 34.2 H RDW 19.6 H Plt Count 75 L ABG pO2 Anion Gap 4 L BUN 25 H Creatinine 1.26 H Est GFR (MDRD) Non-Af 57 L ALT 58 H Alkaline Phosphatase 222 H NT-Pro-B Natriuret Pep Total Protein 6.1 L Albumin 3.3 L Urine Protein 100 H Urine Urobilinogen 2.0 H Urine Ascorbic Acid 40 H 11/11/19 11/11/19 11:12 14:33 WBC RBC Hgb Hct MCV MCH RDW Plt Count ABG pO2 72.2 L Anion Gap BUN Creatinine Est GFR (MDRD) Non-Af ALT Alkaline Phosphatase NT-Pro-B Natriuret Pep 68203 H Total Protein Albumin Urine Protein Urine Urobilinogen Urine Ascorbic Acid Discharge - Discharge Clinical Impression: CHF exacerbation Qualifiers: Heart failure type: systolic Qualified Code(s): I50.23 - Acute on chronic systolic (congestive) heart failure Condition: Fair Disposition: ADMITTED INPATIENT Admitting Provider: Jazmine (Hospitalist) Unit Admitted: Telemetry
[2019-11-11] MEDS ORDERED: FUROSEMIDE INJ/PF 20 MG/2 ML SDV IV ONE (14:04)
[2019-11-11 15:00] LABS: ARTERIAL BLOOD H2CO3 1.06 mmol/L (1.05-1.35); ARTERIAL BLOOD HCO3 22.9 mmol/L (20-24); ARTERIAL BLOOD O2 SATURATION 95.1 % (94-98); ARTERIAL BLOOD PCO2 35.2 mmHg (35-45); ARTERIAL BLOOD PH 7.43 (7.35-7.45); ARTERIAL BLOOD PO2 72.2 mmHg (80-100)
[2019-11-11 15:01] LABS: ARTERIAL BLOOD FIO2 ROOM AIR
[2019-11-11] MEDS ORDERED: ACETAMINOPHEN 325 MG TABLET PO PRN (15:34)
[2019-11-11] MEDS ORDERED: PROMETHAZINE HCL INJ 25 MG/1 ML VIAL IV PRN (15:34)
[2019-11-11] MEDS ORDERED: ONDANSETRON HCL INJ/PF 4 MG/2 ML SDV IV PRN (15:34)
--- NOTE | 2019-11-11 16:18 | RADIOLOGY REPORT (SQ) ---
EXAM DESCRIPTION: VENOUS UNILATERAL UPPER IMAGES COMPLETED DATE/TIME: 11/11/2019 4:04 pm REASON FOR STUDY: LUE swelling COMPARISON: None. TECHNIQUE: Dynamic and static reyna scale and color images acquired of the left arm venous system. Se lected spectral images acquired with additional compression and augmentation maneuvers. The contralat eral subclavian vein and internal jugular vein were also imaged. Images stored on PACS. LIMITATIONS: None. FINDINGS: INTERNAL JUGULAR VEIN: Normal phasicity, compression, augmentation. No visualized echogeni c material on reyna scale. No defects on color images. Comparison opposite side normal. SUBCLAVIAN VEIN: Normal compression, augmentation. No visualized echogenic material on reyna scale. No defects on color images. AXILLARY VEIN: Normal compression, augmentation. No visualized echogenic material on reyna scale. No d efects on color images. BRACHIAL VEIN: Normal compression, augmentation. No visualized echogenic material on reyna scale. No d efects on color images. BASILIC VEIN: Normal compression, augmentation. No visualized echogenic material on reyna scale. No de fects on color images. CEPHALIC VEIN: Normal compression, augmentation. No visualized echogenic material on reyna scale. No d efects on color images. OTHER: No other significant finding. CONTRALATERAL SUBCLAVIAN VEIN AND INTERNAL JUGULAR VEIN: Normal phasicity, compression and augmentation. No visualized echogenic material on reyna scale. No de fects on color images. IMPRESSION: NO EVIDENCE DVT OR SVT IN THE LEFT ARM. TECHNICAL DOCUMENTATION: JOB ID: [id number] 2010 [employer]- All Rights Reserved Reading location - IP/workstation name: [email or web address]
[2019-11-11] MEDS ORDERED: NITROGLYCERIN 0.4 MG/TAB 25 TAB/BOTTLE SL PRN (17:18)
[2019-11-11] MEDS ORDERED: (PENDING PHARMACY ID) (Zolpidem Tartrate [Ambien] 10 MG) PO PRN (17:18)
--- NOTE | 2019-11-11 17:18 | PDOC H&P ---
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 In ED he was found to have elevated troponins chest x-ray cardiomegaly with vasc ular prominence. Hospitalist consulted for admission. Past Medical History Cardiac Medical History: Reports: Congestive Heart Failure, Myocardial Infarction, Hyperlipidema, Hypertension Pulmonary Medical History: Reports: Chronic Obstructive Pulmonary Disease (COPD) GI Medical History: Reports: Gastroesophageal Reflux Disease Psychiatric Medical History: Denies: Depression Past Surgical History Past Surgical History: Reports: Cardiac Catheterization - CABG, Coronary Artery Bypass Graft, Herniorrhaphy - bilateral inguinal hernia repair, Orthopedic Surgery, Pacemaker Social History Smoking Status: Current Every Day Smoker Frequency of Alcohol Use: None Hx Recreational Drug Use: No Hx Prescription Drug Abuse: No Family History Family History: Reviewed & Not Pertinent Parental Family History Reviewed: Yes Children Family History Reviewed: Yes Sibling(s) Family History Reviewed.: Yes Medication/Allergy Home Medications: Carvedilol 25 mg PO Q12 10/22/19 Clopidogrel Bisulfate [Plavix 75 mg Tablet] 75 mg PO DAILY 10/22/19 Digoxin [Lanoxin 0.25 mg Tablet] 0.25 mg PO DAILY 10/22/19 Isosorbide Mononitrate [Imdur 30 mg Tablet.er] 30 mg PO DAILY 10/22/19 Nitroglycerin [Nitrostat 0.4 mg (1/150 Gr) Tabs 25/Bottle] 0.4 mg SL Q5MP PRN 10/22/19 Rosuvastatin Calcium [Crestor] 20 mg PO QHS 10/22/19 Tiotropium Br/Olodaterol HCl [Stiolto Respimat Inhal [place]] 2 puff IH DAILY 10/22/19 Tiotropium [place] [Spiriva Handihaler 5 Cap/Kit (18 Mcg/Cap)] 1 cap IH DAILY 10/22/19 Valsartan [Diovan 80 mg Tablet] 40 mg PO DAILY 10/22/19 Zolpidem Tartrate [Ambien] 10 mg PO HSP PRN 10/22/19 Allergies/Adverse Reactions: No Known Allergies Allergy (Verified 09/18/19 13:47) Physical Exam Vital Signs: Temp Pulse Resp BP Pulse Ox 97.8 F 71 33 H 141/85 H 100 11/11/19 10:10 11/11/19 10:10 11/11/19 15:00 11/11/19 15:00 11/11/19 15:00 Intake & Output 11/10/19 11/11/19 11/12/19 06:59 06:59 06:59 Weight 62.8 kg Results Laboratory Results: 11/11/19 11:12 11/11/19 11:12 11/11/19 11/11/19 11/11/19 10:30 11:12 11:12 WBC 2.9 L RBC 2.67 L Hgb 9.1 L Hct 27.9 L MCV 105 H MCH 34.2 H MCHC 32.7 RDW 19.6 H Plt Count 75 L Seg Neutrophils % 71.5 Carbonic Acid HCO3/H2CO3 Ratio ABG pH ABG pCO2 ABG pO2 ABG HCO3 ABG O2 Saturation ABG Base Excess FiO2 Sodium 137.4 Potassium 4.1 Chloride 107 Carbon Dioxide 26 Anion Gap 4 L BUN 25 H Creatinine 1.26 H Est GFR ( Amer) > 60 Glucose 95 Calcium 8.6 Total Bilirubin 0.7 AST 44 Alkaline Phosphatase 222 H Total Protein 6.1 L Albumin 3.3 L Lipase 48.4 Urine Color DARK YELLOW Urine Appearance SLIGHTLY-CLOUDY Urine pH 5.0 Ur Specific [place] 1.023 Urine Protein 100 H Urine Glucose (UA) NEGATIVE Urine Ketones NEGATIVE Urine Blood NEGATIVE Urine Nitrite NEGATIVE Ur Leukocyte Esterase NEGATIVE Urine WBC (Auto) 1 Urine RBC (Auto) 14 11/11/19 14:33 WBC RBC Hgb Hct MCV MCH MCHC RDW Plt Count Seg Neutrophils % Carbonic Acid 1.06 HCO3/H2CO3 Ratio 21:1 ABG pH 7.43 ABG pCO2 35.2 ABG pO2 72.2 L ABG HCO3 22.9 ABG O2 Saturation 95.1 ABG Base Excess -1.0 FiO2 ROOM AIR Sodium Potassium Chloride Carbon Dioxide Anion Gap BUN Creatinine Est GFR ( Amer) Glucose Calcium Total Bilirubin AST Alkaline Phosphatase Total Protein Albumin Lipase Urine Color Urine Appearance Urine pH Ur Specific [place] Urine Protein Urine Glucose (UA) Urine Ketones Urine Blood Urine Nitrite Ur Leukocyte Esterase Urine WBC (Auto) Urine RBC (Auto) 11/11/19 11:12 NT-Pro-B Natriuret Pep 10189 H Impressions: Chest X-Ray 11/11/19 10:19 IMPRESSION: BASILAR ATELECTASIS VERSUS SCARRING WITH SMALL PLEURAL EFFUSIONS. BORDERLINE CARDIOMEGALY WITH MILD VASCULAR PROMINENCE. Venous Doppler Study 11/11/19 13:59 IMPRESSION: NO EVIDENCE DVT OR SVT IN THE LEFT ARM. Assessment and Plan - Diagnosis (1) CHF exacerbation Qualifiers: Heart failure type: systolic Qualified Code(s): I50.23 - Acute on chronic systolic (congestive) heart failure Is this a current diagnosis for this admission?: Yes Plan: Acute CHF exacerbation. History of CHF with ejection fraction 35 to 40%. BNP 5700. Admit to telemetry, strict in and out, fluid restriction, IV diuretics, beta- blockers and JARED. We will consult cardiology for comanagement. (2) Anemia Qualifiers: Chronic kidney disease stage: stage 3 (moderate) Is this a current diagnosis for this admission?: Yes Plan: History of pancytopenia. Hemoglobin 8-9. Dr. Soto from oncology was consulted last admission however patient has not followed up. Will reconsult. Denies any hematemesis, hemoptysis, melena or hematochezia. We will obtain iron panel and guaiac stool. (3) CAD (coronary artery disease) Qualifiers: Coronary Disease-Associated Artery/Lesion type: [place] artery Is this a current diagnosis for this admission?: Yes Plan: Denies any anginal symptoms. Resume home meds. Outpatient PCP and cardiology follow-up. (4) HTN (hypertension) Is this a current diagnosis for this admission?: Yes Plan: Normotensive. Volume overload. Resume home meds. Adjust meds as needed. Outpatient PCP follow-up. (5) Tobacco dependence Is this a current diagnosis for this admission?: Yes Plan: Counseled on quitting. NicoDerm patch will be provided. (6) COPD (chronic obstructive pulmonary disease) Qualifiers: COPD type: chronic bronchitis Is this a current diagnosis for this admission?: Yes Plan: History of non-oxygen dependent COPD. Does not seem to be acutely exacerbated. Resume home meds. Outpatient PCP follow-up. - Time Time Spent with patient: 35 or more minutes Medications reviewed and adjusted accordingly: Yes Anticipated Discharge Disposition: Home with Home Health Anticipated Discharge Timeframe: within 72 hours
[2019-11-11] MEDS ORDERED: ZOLPIDEM TARTRATE 5 MG TABLET PO PRN (17:50)
[2019-11-11] MEDS ORDERED: (PENDING PHARMACY ID) (Tiotropium Br/Olodaterol Hcl [Stiolto Respimat Inhal Spray] 2 PUFF) IH SCH (18:00)
--- NOTE | 2019-11-11 19:26 | EKG REPORT ---
SEVERITY:- ABNORMAL ECG - SINUS RHYTHM PROBABLE LEFT ATRIAL ABNORMALITY NONSPECIFIC INTRAVENTRICULAR CONDUCTION DELAY PROBABLE INFERIOR INFARCT, AGE INDETERMINATE : Confirmed by: Jaron Harrell MD 11-Nov-2019 19:26:34
[2019-11-11] MEDS: OXYCODONE-ACETAMINOPHEN 5-325 MG TABLET PO PRN (20:43)
[2019-11-11] MEDS: IPRATROPIUM/ALBUTEROL 0.5-2.5 MG/3 ML AMPUL NEB SCH (20:57)
[2019-11-11] MEDS: CARVEDILOL 12.5 MG TABLET PO SCH (21:26)
[2019-11-11] MEDS: FUROSEMIDE INJ/PF 20 MG/2 ML SDV IV SCH (21:26)
[2019-11-11] MEDS: FAMOTIDINE 20 MG TABLET PO SCH (21:26)
[2019-11-11] MEDS: TEMAZEPAM 7.5 MG CAPSULE PO SCH (21:26)
--- NOTE | 2019-11-11 21:39 | PDOC CONSULTATION ---
Consultation-Blank Consultation: CARDIOLOGY CONSULTATION by Dr. Alicia Brizuela on 11/11/2019. Patient seen at 3 PM on 11/11/2019. 60 minutes spent as patient more than 50% time spent in direct patient care. REASON FOR CONSULTATION: Acute on chronic systolic heart failure. CONSULT REQUESTING PHYSICIAN: Dr. Liu, [facility] [place] [facility] at [facility]. HISTORY OF PRESENT ILLNESS: Patient is a 69-year-old male with known history of coronary artery disease, history of coronary artery bypass graft surgery, old myocardial infarction, with history of ischemic and dilated cardiomyopathy, and a history of AICD placement and COPD who is states that since he was getting up frequently at night to pass urine he stopped taking his diuretics. The patient subsequently since last few days has been having increasing swelling of his legs and has had PND orthopnea. There is no chest pain. There is no palpitations or firing of the AICD. The patient has been given Lasix and he feels much better. The patient's past echocardiogram done in the office shows moderate to severely reduced LV ejection fraction. His outpatient recent Cardiolite stress test showes old myocardial infarction with no reversible ischemia. He is also found to have pancytopenia without any ill effects. He also has skin cancer lesion in the left ear and has been advised radiation therapy for this. Past Medical History Cardiac Medical History: Reports: Congestive Heart Failure, Myocardial Inf arction, Hyperlipidema, Hypertension Pulmonary Medical History: Reports: Chronic Obstructive Pulmonary Disease (COPD) GI Medical History: Reports: Gastroesophageal Reflux Disease Psychiatric Medical History: Denies: Depression Past Surgical History Past Surgical History: Reports: Cardiac Catheterization - CABG, Coronary Artery Bypass Graft, Herniorrhaphy - bilateral inguinal hernia repair, Orthopedic Surgery, Pacemaker Social History Smoking Status: Current Every Day Smoker Frequency of Alcohol Use: None Hx Recreational Drug Use: No Hx Prescription Drug Abuse: No Family History Family History: Reviewed & Not Pertinent Parental Family History Reviewed: Yes Children Family History Reviewed: Yes Sibling(s) Family History Reviewed.: Yes Medication/Allergy Home Medications: Carvedilol 25 mg PO Q12 10/22/19 Clopidogrel Bisulfate [Plavix 75 mg Tablet] 75 mg PO DAILY 10/22/19 Digoxin [Lanoxin 0.25 mg Tablet] 0.25 mg PO DAILY 10/22/19 Isosorbide Mononitrate [Imdur 30 mg Tablet.er] 30 mg PO DAILY 10/22/19 Nitroglycerin [Nitrostat 0.4 mg (1/150 Gr) Tabs 25/Bottle] 0.4 mg SL Q5MP PRN 10/22/19 Rosuvastatin Calcium [Crestor] 20 mg PO QHS 10/22/19 Tiotropium Br/Olodaterol HCl [Stiolto Respimat Inhal [place]] 2 puff IH DAILY 10/22/19 Tiotropium [place] [Spiriva Handihaler 5 Cap/Kit (18 Mcg/Cap)] 1 cap IH DAILY 10/22/19 Valsartan [Diovan 80 mg Tablet] 40 mg PO DAILY 10/22/19 Zolpidem Tartrate [Ambien] 10 mg PO HSP PRN 10/22/19 Allergies/Adverse Reactions: No Known Allergies Allergy (Verified 09/18/19 13:47) Current Medications Discontinued Medications Generic Name Dose Route Start Last Admin Trade Name Freq PRN Reason Stop Dose Admin Acetaminophen 325 mg 11/11/19 15:34 Tylenol 325 Mg Tablet PO 12/11/19 15:33 Q4HP PRN FEVER >101 Albuterol/Ipratropium 3 ml 11/11/19 20:00 11/13/19 08:26 Duoneb 3 Ml Ampul NEB 12/11/19 19:59 3 ml [id number] DENG Administration Carvedilol 25 mg 11/11/19 22:00 11/13/19 09:45 Coreg 12.5 Mg Tablet PO 12/11/19 21:59 25 mg Q12 DENG Administration Clopidogrel Bisulfate 75 mg 11/12/19 10:00 11/13/19 09:45 Plavix 75 Mg Tablet PO 12/12/19 09:59 75 mg DAILY DENG Administration Digoxin 0.25 mg 11/12/19 10:00 11/13/19 09:44 Lanoxin 0.25 Mg Tablet PO 12/12/19 09:59 0.25 mg DAILY DENG Administration Docusate Sodium 100 mg 11/12/19 10:00 11/13/19 09:46 Colace 100 Mg Capsule PO 12/12/19 09:59 Not Given DAILY DENG Enoxaparin Sodium 40 mg 11/12/19 10:00 11/13/19 09:46 Lovenox Inj 40 Mg/0.4 Ml Disp.Syrin SUBCUT 12/12/19 09:59 Not Given DAILY DENG Famotidine 20 mg 11/11/19 22:00 11/13/19 09:45 Pepcid 20 Mg Tablet PO 12/11/19 21:59 20 mg Q12 DENG Administration Furosemide 20 mg 11/11/19 14:04 11/11/19 14:20 Lasix Inj/Pf 20 Mg/2 Ml Sdv IV 11/11/19 14:05 20 mg NOW ONE Administration Furosemide 20 mg 11/11/19 22:00 11/13/19 09:45 Lasix Inj/Pf 20 Mg/2 Ml Sdv IV 12/11/19 21:59 20 mg Q12 DENG Administration Isosorbide Mononitrate 30 mg 11/12/19 10:00 11/13/19 09:45 Imdur 30 Mg Tablet.Er PO 12/12/19 09:59 30 mg DAILY DENG Administration Nicotine 1 each 11/12/19 10:00 11/13/19 09:45 Nicoderm 21 Mg/24 Hr Transderm Patch TD 12/12/19 09:59 1 each DAILY DENG Administration Nitroglycerin 1 tab 11/11/19 17:18 Nitrostat 0.4 Mg (1/150 Gr) Tabs 25/Bottle SL 12/11/19 17:17 Q5MP PRN FOR CHEST PAIN Ondansetron HCl 4 mg 11/11/19 15:34 Zofran Inj/Pf 4 Mg/2 Ml Sdv IV 12/11/19 15:33 Q4HP PRN FOR NAUSEA/VOMITING Oxycodone/Acetaminophen 1 tab 11/11/19 15:34 11/12/19 21:44 Percocet 5-325 Mg Tablet PO 11/18/19 15:33 1 tab Q4HP PRN Administration FOR PAIN SCALE 3-5 Patient Own Medication 2 puff 11/11/19 18:00 Tiotropium Br/Olodaterol Hcl [Stiolto Respimat Inhal [place]] IH 12/11/19 17:59 .DAILY DENG Promethazine HCl 12.5 mg 11/11/19 15:34 Phenergan Inj 25 Mg/1 Ml Vial IV 12/11/19 15:33 Q4HP PRN FOR NAUSEA/VOMITING Temazepam 7.5 mg 11/11/19 22:00 11/12/19 21:45 Restoril 7.5 Mg Capsule PO 11/18/19 21:59 7.5 mg QHS DENG Administration Umeclidinium [place] 1 inh 11/12/19 10:00 11/13/19 09:44 Incruse 62.5 Mcg Ellipta 7 Dose/Dpi IH 12/12/19 09:59 1 inh DAILY DENG Administration Valsartan 40 mg 11/12/19 10:00 11/13/19 09:44 Diovan 80 Mg Tablet PO 12/12/19 09:59 40 mg DAILY DENG Administration Zolpidem Tartrate 10 mg 11/11/19 17:50 Ambien 5 Mg Tablet PO 11/18/19 17:49 HSP PRN SLEEP OR INSOMNIA RESUSCITATION STATUS: The patient is a full code. His daughter is his surrogate healthcare decision maker. REVIEW OF SYSTEMS: CONSTITUTIONAL: There is no fever chills or rigors, except for the feeling of generalized fatigue and weakness he has normal he has no fatigue or weakness. He denies any fever chills or rigors. HEAD: No history of headaches or head injury. EYES: No history of amblyopia diplopia no history of amaurosis fugax. EARS: No history of tinnitus. This patient has hearing loss, no vertigo. NOSE: The patient is seasonal allergies, but no hayfever. There is no nosebleeds. MOUTH: No altered taste sensation no ulcers in the mouth THROAT: No history of odynophagia dysphagia no recurrent sore throats. SKIN: No history of pruritus no history of allergies discoloration of the skin. He has history of skin cancer, on the skin behind the left ear, and is for radiation therapy. He has no history of psoriasis. NECK: No neck pain. No lymphadenopathy. No goiter. LUNGS: He has a history of COPD continues to smoke. He has no symptoms of acute exacerbation of COPD. No history of wheezing. No history of pulmonary e mbolism. No history of pleuritic chest pain no hemoptysis. No history of sleep apnea. No symptoms of upper or lower respiratory tract infections. HEART: History of hypertension. . History of coronary artery disease or myocardial infarction. History of coronary bypass graft surgery. No anginal symptoms. History of cardiomyopathy with moderate to severely reduced LV ejection fraction. History of AICD. Patient presents with PND orthopnea leg edema. No palpitations syncope. No firing of his AICD.. ENDOCRINE:There is a history of diabetes. No history of heat or cold intolerance no history of polydipsia polyuria. The patient has hypothyroidism and the patient's and severely hypothyroid state at present. RENAL: No history of chronic kidney disease. No symptoms of hematuria pyuria or dysuria. No symptoms of UTI. GI: No history of GI bleed no history of GERD no history of peptic ulcer disease no history of fatty food intolerance. No history of hepatitis. No history of jaundice. No history of altered bowel movements. MUSCULOSKELETAL: Denies history of arthritis or collagen vascular disease. ELEMENTARY SCHOOL LIBRARIAN: No history of TIA or CVA. No history of headaches migraines or seizures. No history of sleep apnea. PSYCHIATRIC: No history of anxiety or depression. No history of suicidal ideation. No history of homicidal ideation. VASCULAR: He has significant bilateral peripheral vascular disease status post left femoral bypass surgery he has right greater than left bilateral calf claudication. . No DVT. . HEMATOLOGICAL: No history of bleeding diathesis no history of clotting disorders. He presents with pancytopenia, asymptomatic. PHYSICAL EXAMINATION: The patient is a frail build and appears to be chronically ill. In no acute distress. Selected Entries 11/11/19 11/11/19 11/11/19 14:00 15:00 18:00 Temperature 97.4 F Temperature Oral Source Pulse Rate 77 Heart Rate ( 84 Monitors) Respiratory 20 18 Rate Blood Pressure 141/85 H Blood Pressure 148/79 H [Upper Arm] Blood Pressure 103 Mean Blood Pressure 102 Mean [Upper Arm ] Blood Pressure Supine Position [Upper Arm] O2 Sat by Pulse 100 99 Oximetry Oxygen Delivery Nasal Cannula Method ( includes room air) Oxygen Flow 1 Rate HEAD: Is atraumatic normocephalic. EYES: Pupils are equal round regular reactive to light and accommodation. Extraocular movements are normal. There is no conjunctival pallor. There is no scleral icterus. EARS: Tympanic membranes are intact. External auditory canals are clear. NOSE: There is no deviated nasal septum. There is no inflammation of the nasal mucous membrane. MOUTH: Mucous membranes of mouth are moist. Tongue is moist. THROAT: There is no redness of the oropharynx. There is no exudates. 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 There is no catie-care ecchymosis. NECK: Supple. There is mild JVD present. Carotids are equal there is no bruit. There is no lymphadenopathy. There is no goiter. There is no accessory muscle respiration use. Trachea central. LUNGS: Shows diminished air entry prolonged expiration there is bibasilar rales of CHF. There is no rhonchi or wheezing. There is no chest wall tenderness on palpation. On palpation there is hyperresonance. HEART: S1-S2 is heard. There is no S3 gallop. There is no S4 gallop there is systolic murmur left sternal border and the apex there is no rub. ABDOMEN: Soft. There is no paraspinal megaly. Bowel sounds are well heard. There is no hepatosplenomegaly. EXTREMITIES: There is diminished bilateral femoral pulses with bruits. 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 He has bilateral femoral bruits present. Leg pulses are diminished. There is no there is 1+ pedal edema bilaterally. There is no DVT or cellulitis. There is no cyanosis or clubbing. ELEMENTARY SCHOOL LIBRARIAN: The patient is conscious awake alert oriented x3 with no focal deficits. PSYCHIATRIC: Patient is a patient judgment insight are intact his affect is normal. Labs- Entire Visit 11/11/19 11/11/19 11/11/19 10:30 11:12 11:12 WBC 2.9 L RBC 2.67 L Hgb 9.1 L Hct 27.9 L MCV 105 H MCH 34.2 H MCHC 32.7 RDW 19.6 H Plt Count 75 L Lymph % (Auto) 17.4 [place] % (Auto) 8.9 Eos % (Auto) 1.4 Baso % (Auto) 0.8 Reticulocyte # Absolute Neuts (auto) 2.1 Absolute Lymphs (auto) 0.5 Absolute Monos (auto) 0.3 Absolute Eos (auto) 0.0 Absolute Basos (auto) 0.0 Seg Neutrophils % 71.5 Retic Count (auto) Carbonic Acid HCO3/H2CO3 Ratio ABG pH ABG pCO2 ABG pO2 ABG HCO3 ABG Total CO2 ABG O2 Saturation ABG Base Excess FiO2 Sodium 137.4 Potassium 4.1 Chloride 107 Carbon Dioxide 26 Anion Gap 4 L BUN 25 H Creatinine 1.26 H Est GFR ( Amer) > 60 Est GFR (MDRD) Non-Af 57 L Glucose 95 Calcium 8.6 Magnesium Iron TIBC % Saturation Ferritin Total Bilirubin 0.7 Direct Bilirubin 0.2 Neonat Total Bilirubin Not Reportable Neonat Direct Bilirubin Not Reportable Neonat Indirect Bili Not Reportable AST 44 ALT 58 H Alkaline Phosphatase 222 H NT-Pro-B Natriuret Pep Total Protein 6.1 L Albumin 3.3 L Lipase 48.4 Vitamin B12 Folate Urine Color DARK YELLOW Urine Appearance SLIGHTLY-CLOUDY Urine pH 5.0 Ur Specific [place] 1.023 Urine Protein 100 H Urine Glucose (UA) NEGATIVE Urine Ketones NEGATIVE Urine Blood NEGATIVE Urine Nitrite NEGATIVE Urine Bilirubin NEGATIVE Urine Urobilinogen 2.0 H Ur Leukocyte Esterase NEGATIVE Urine WBC (Auto) 1 Urine RBC (Auto) 14 U Hyaline Cast (Auto) 1 Urine Bacteria (Auto) TRACE Squamous Epi Cells Auto <1 Urine Mucus (Auto) RARE Urine Ascorbic Acid 40 H Stool Occult Blood 11/11/19 11/11/19 11:12 14:33 WBC RBC Hgb Hct MCV MCH MCHC RDW Plt Count Lymph % (Auto) [place] % (Auto) Eos % (Auto) Baso % (Auto) Reticulocyte # Absolute Neuts (auto) Absolute Lymphs (auto) Absolute Monos (auto) Absolute Eos (auto) Absolute Basos (auto) Seg Neutrophils % Retic Count (auto) Carbonic Acid 1.06 HCO3/H2CO3 Ratio 21:1 ABG pH 7.43 ABG pCO2 35.2 ABG pO2 72.2 L ABG HCO3 22.9 ABG Total CO2 24.0 ABG O2 Saturation 95.1 ABG Base Excess -1.0 FiO2 ROOM AIR Sodium Potassium Chloride Carbon Dioxide Anion Gap BUN Creatinine Est GFR ( Amer) Est GFR (MDRD) Non-Af Glucose Calcium Magnesium Iron TIBC % Saturation Ferritin Total Bilirubin Direct Bilirubin Neonat Total Bilirubin Neonat Direct Bilirubin Neonat Indirect Bili AST ALT Alkaline Phosphatase NT-Pro-B Natriuret Pep 42190 H Total Protein Albumin Lipase Vitamin B12 Folate Urine Color Urine Appearance Urine pH Ur Specific [place] Urine Protein Urine Glucose (UA) Urine Ketones Urine Blood Urine Nitrite Urine Bilirubin Urine Urobilinogen Ur Leukocyte Esterase Urine WBC (Auto) Urine RBC (Auto) U Hyaline Cast (Auto) Urine Bacteria (Auto) Squamous Epi Cells Auto Urine Mucus (Auto) Urine Ascorbic Acid Stool Occult Blood Chest X-Ray 11/11/19 10:19 IMPRESSION: BASILAR ATELECTASIS VERSUS SCARRING WITH SMALL PLEURAL EFFUSIONS. BORDERLINE CARDIOMEGALY WITH MILD VASCULAR PROMINENCE. Venous Doppler Study 11/11/19 13:59 IMPRESSION: NO EVIDENCE DVT OR SVT IN THE LEFT ARM. EKG: SINUS RHYTHM [PLAA] . PROBABLE LEFT ATRIAL ABNORMALITY [NIVCD] . NONSPECIFIC INTRAVENTRICULAR CONDUCTION DELAY [IMI26] . PROBABLE INFERIOR INFARCT, AGE INDETERMINATE . IMPRESSION/RECOMMENDATION: 1. Acute on chronic systolic heart failure. Continue IV diuretics. Continue current ARB and beta-abhishek. 2. Dilated cardiomyopathy and ischemic cardiomyopathy with him moderately severely reduced LV ejection fraction. Continue current anti-his cardiomyopathy treatment. 3. COPD: At present no acute exacerbation. 4. Coronary artery disease. History of old myocardial infarction and history of coronary bypass graft surgery. No anginal symptoms. Continue anti-CAD medication, as being down now. 5. History of hypertension: Blood pressure well controlled 6. History of AICD: No firing of his AICD recently. 7. Peripheral vascular disease: History of recent past history of left femoropopliteal bypass surgery. 8. Pancytopenia: Hematology consult requested. 9. Tobacco abuse disorder.: Patient counseled the risks and the risks of tobacco abuse and the benefits of tobacco cessation. Tobacco cessation counseling given 3 minutes spent on this patient Medications reviewed. Medical regimen and management plan discussed with attending provider on the case. 60 minutes spent as patient more than 50% time spent direct patient care. Medical decision making is of high complexity. Will follow.
[2019-11-11] MEDS ORDERED: (PENDING PHARMACY ID) (Carvedilol [Carvedilol] 25 MG) PO SCH (22:00)
[2019-11-12 05:40] LABS: ABSOLUTE RETICS # 0.027 10^6/uL (0.028-0.122); RETICULOCYTE COUNT (AUTO) 1.02 % (0.66-2.85)
[2019-11-12 05:56] LABS: ALKALINE PHOSPHATASE 190 U/L (38-126); ASPARTATE AMINO TRANSFERASE 38 U/L (17-59); BILIRUBIN,DIRECT 0.2 mg/dL (0.0-0.4); BILIRUBIN,TOTAL 0.8 mg/dL (0.2-1.3); BLOOD UREA NITROGEN 30 mg/dL (7-20); CALCIUM 8.6 mg/dL (8.4-10.2); GLUCOSE 99 mg/dL (75-110); IRON(TIBC) 75.5 ug/dL (49-181); POTASSIUM 4.2 mmol/L (3.6-5.0); TOTAL PROTEIN 5.8 g/dL (6.3-8.2)
[2019-11-12 06:01] LABS: CARBON DIOXIDE 26 mmol/L (22-30); CHLORIDE 109 mmol/L (98-107)
[2019-11-12 06:10] LABS: ANION GAP 4 (5-19)
[2019-11-12 07:24] LABS: FOLATE > 20.00 ng/mL (>2.76)
--- NOTE | 2019-11-12 08:35 | PDOC CONSULTATION ---
Consultation Consult Date: 11/12/19 Attending physician:: GUALBERTO ELIAS Provider Consulted: MIRIAN ANSARI Consult reason:: Pancytopenia History of Present Illness Admission Date/PCP: 11/11/19 14:[facility] Patient complains of: Pancytopenia History of Present Illness: LORIE OLIVIA is a 69 year old male who once again presents with diffuse swelling, consistent with anasarca, has known history of severe CHF and was treated for CHF exacerbation recently. At that admission I was consulted because of pancytopenia, ultimately we found that his platelet count went down as low as 46, hemoglobin has been chronically in the 8-9 range. White count has been as low as in the 2 range, but has been normal as well. 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 His platelet count here today is 75. So slightly better than when he left. Past Medical History Cardiac Medical History: Reports: Congestive Heart Failure, Myocardial Infarction, Hyperlipidema, Hypertension Pulmonary Medical History: Reports: Chronic Obstructive Pulmonary Disease (COPD) GI Medical History: Reports: Gastroesophageal Reflux Disease Psychiatric Medical History: Denies: Depression Past Surgical History Past Surgical History: Reports: Cardiac Catheterization - CABG, Coronary Artery Bypass Graft, Herniorrhaphy - bilateral inguinal hernia repair, Orthopedic Surgery, Pacemaker Social History Smoking Status: Current Every Day Smoker Cigarettes Packs Per Day: 0.5 Electronic Cigarette use?: No Cigars Per Day: 0 Pipes Per Day: 0 Number of Years Smokin Last Time Smoked: 11/11/2019 Frequency of Alcohol Use: None Hx Recreational Drug Use: No Hx Prescription Drug Abuse: No - Advance Directive Resuscitation Status: Full Code Family History Family History: Reviewed & Not Pertinent Parental Family History Reviewed: Yes Children Family History Reviewed: Yes Sibling(s) Family History Reviewed.: Yes Medication/Allergy Home Medications: Carvedilol 25 mg PO Q12 10/22/19 Clopidogrel Bisulfate [Plavix 75 mg Tablet] 75 mg PO DAILY 10/22/19 Digoxin [Lanoxin 0.25 mg Tablet] 0.25 mg PO DAILY 10/22/19 Isosorbide Mononitrate [Imdur 30 mg Tablet.er] 30 mg PO DAILY 10/22/19 Nitroglycerin [Nitrostat 0.4 mg (1/150 Gr) Tabs 25/Bottle] 0.4 mg SL Q5MP PRN 10/22/19 Rosuvastatin Calcium [Crestor] 20 mg PO QHS 10/22/19 Tiotropium Br/Olodaterol HCl [Stiolto Respimat Inhal [place]] 2 puff IH DAILY 10/22/19 Tiotropium [place] [Spiriva Handihaler 5 Cap/Kit (18 Mcg/Cap)] 1 cap IH DAILY 10/22/19 Valsartan [Diovan 80 mg Tablet] 40 mg PO DAILY 10/22/19 Zolpidem Tartrate [Ambien] 10 mg PO HSP PRN 10/22/19 Allergies/Adverse Reactions: No Known Allergies Allergy (Verified 11/11/19 20:49) Review of Systems Constitutional: ABSENT: chills, fever(s), headache(s), weight gain, weight loss Eyes: ABSENT: visual disturbances Ears: ABSENT: hearing changes Cardiovascular: ABSENT: chest pain, dyspnea on exertion, edema, orthropnea, palpitations Respiratory: ABSENT: cough, hemoptysis Gastrointestinal: ABSENT: abdominal pain, constipation, diarrhea, hematemesis, hematochezia, nausea, vomiting Genitourinary: ABSENT: dysuria, hematuria Musculoskeletal: ABSENT: joint swelling Integumentary: ABSENT: rash, wounds Neurological: ABSENT: abnormal gait, abnormal speech, confusion, dizziness, focal weakness, syncope Psychiatric: ABSENT: anxiety, depression, homidical ideation, suicidal ideation Endocrine: ABSENT: cold intolerance, heat intolerance, polydipsia, polyuria Hematologic/Lymphatic: ABSENT: easy bleeding, easy bruising Physical Exam Vital Signs: Temp Pulse Resp BP Pulse Ox 97.5 F 73 16 156/78 H 92 11/12/19 07:59 11/12/19 07:59 11/12/19 07:59 11/12/19 07:59 11/12/19 07:59 Intake & Output 11/11/19 11/12/19 11/13/19 06:59 06:59 06:59 Intake Total 260 Output Total 320 Balance -60 Weight 62.5 kg General appearance: PRESENT: no acute distress, well-developed, well-nourished Head exam: PRESENT: atraumatic, normocephalic Eye exam: PRESENT: conjunctiva pink, EOMI, PERRLA. ABSENT: scleral icterus Ear exam: PRESENT: normal external ear exam Mouth exam: PRESENT: moist, tongue midline Neck exam: ABSENT: carotid bruit, JVD, lymphadenopathy, thyromegaly Respiratory exam: PRESENT: clear to auscultation khushboo. ABSENT: rales, rhonchi, wheezes Cardiovascular exam: PRESENT: RRR. ABSENT: diastolic murmur, rubs, systolic murmur Pulses: PRESENT: normal dorsalis pedis pul Vascular exam: PRESENT: normal capillary refill GI/Abdominal exam: PRESENT: normal bowel sounds, soft. ABSENT: distended, guarding, mass, organolmegaly, rebound, tenderness Rectal exam: PRESENT: deferred Extremities exam: PRESENT: full ROM. ABSENT: calf tenderness, clubbing, pedal edema Neurological exam: PRESENT: alert, awake, oriented to person, oriented to place, oriented to time, oriented to situation, CN II-XII grossly intact. ABSENT: motor sensory deficit Psychiatric exam: PRESENT: appropriate affect, normal mood. ABSENT: homicidal ideation, suicidal ideation Skin exam: PRESENT: dry, intact, warm. ABSENT: cyanosis, rash Results Laboratory Results: 11/11/19 11:12 11/12/19 05:05 11/11/19 11/11/19 11/11/19 10:30 11:12 11:12 WBC 2.9 L RBC 2.67 L Hgb 9.1 L Hct 27.9 L MCV 105 H MCH 34.2 H MCHC 32.7 RDW 19.6 H Plt Count 75 L Seg Neutrophils % 71.5 Retic Count (auto) Carbonic Acid HCO3/H2CO3 Ratio ABG pH ABG pCO2 ABG pO2 ABG HCO3 ABG O2 Saturation ABG Base Excess FiO2 Sodium 137.4 Potassium 4.1 Chloride 107 Carbon Dioxide 26 Anion Gap 4 L BUN 25 H Creatinine 1.26 H Est GFR ( Amer) > 60 Glucose 95 Calcium 8.6 Magnesium Iron TIBC % Saturation Ferritin Total Bilirubin 0.7 AST 44 Alkaline Phosphatase 222 H Total Protein 6.1 L Albumin 3.3 L Lipase 48.4 Vitamin B12 Folate Urine Color DARK YELLOW Urine Appearance SLIGHTLY-CLOUDY Urine pH 5.0 Ur Specific [place] 1.023 Urine Protein 100 H Urine Glucose (UA) NEGATIVE Urine Ketones NEGATIVE Urine Blood NEGATIVE Urine Nitrite NEGATIVE Ur Leukocyte Esterase NEGATIVE Urine WBC (Auto) 1 Urine RBC (Auto) 14 Stool Occult Blood 11/11/19 11/11/19 11/12/19 14:33 22:20 05:05 WBC RBC Hgb Hct MCV MCH MCHC RDW Plt Count Seg Neutrophils % Retic Count (auto) Carbonic Acid 1.06 HCO3/H2CO3 Ratio 21:1 ABG pH 7.43 ABG pCO2 35.2 ABG pO2 72.2 L ABG HCO3 22.9 ABG O2 Saturation 95.1 ABG Base Excess -1.0 FiO2 ROOM AIR Sodium 138.9 Potassium 4.2 Chloride 109 H Carbon Dioxide 26 Anion Gap 4 L BUN 30 H Creatinine 1.57 H Est GFR ( Amer) 53 L Glucose 99 Calcium 8.6 Magnesium 1.7 Iron 75.5 TIBC 324 % Saturation 23 Ferritin 171.00 Total Bilirubin 0.8 AST 38 Alkaline Phosphatase 190 H Total Protein 5.8 L Albumin 3.0 L Lipase Vitamin B12 758.0 Folate > 20.00 Urine Color Urine Appearance Urine pH Ur Specific [place] Urine Protein Urine Glucose (UA) Urine Ketones Urine Blood Urine Nitrite Ur Leukocyte Esterase Urine WBC (Auto) Urine RBC (Auto) Stool Occult Blood NEGATIVE 11/12/19 05:05 WBC RBC Hgb Hct MCV MCH MCHC RDW Plt Count Seg Neutrophils % Retic Count (auto) 1.02 Carbonic Acid HCO3/H2CO3 Ratio ABG pH ABG pCO2 ABG pO2 ABG HCO3 ABG O2 Saturation ABG Base Excess FiO2 Sodium Potassium Chloride Carbon Dioxide Anion Gap BUN Creatinine Est GFR ( Amer) Glucose Calcium Magnesium Iron TIBC % Saturation Ferritin Total Bilirubin AST Alkaline Phosphatase Total Protein Albumin Lipase Vitamin B12 Folate Urine Color Urine Appearance Urine pH Ur Specific [place] Urine Protein Urine Glucose (UA) Urine Ketones Urine Blood Urine Nitrite Ur Leukocyte Esterase Urine WBC (Auto) Urine RBC (Auto) Stool Occult Blood 11/11/19 11:12 NT-Pro-B Natriuret Pep 26335 H Impressions: Chest X-Ray 11/11/19 10:19 IMPRESSION: BASILAR ATELECTASIS VERSUS SCARRING WITH SMALL PLEURAL EFFUSIONS. BORDERLINE CARDIOMEGALY WITH MILD VASCULAR PROMINENCE. Venous Doppler Study 11/11/19 13:59 IMPRESSION: NO EVIDENCE DVT OR SVT IN THE LEFT ARM. Assessment & Plan - Diagnosis (1) Pancytopenia Is this a current diagnosis for this admission?: Yes Plan: Pancytopenia: In terms of the leukopenia, it will normalize as his condition improves. But he is not neutropenic so should not be compromised. In terms of his hemoglobin, on last admission ferritin level was done and was normal along with saturation. So this is anemia of chronic disease. In terms of his thrombocytopenia, this is likely related to cardiac cirrhosis. Nothing further to be done about this. They do note some giant platelets on the smear so there is a possibility that ITP may be causing some of his issues but regardless as long as his hemoglobin remains above 40, nothing to be done about it. If his hemoglobin drops below 40 and especially for drops in the 20-30 range we could try a course of steroids to see if it improves things. However, high-dose steroids will have other implications. - Time Time Spent: Greater than 70 Minutes
[2019-11-12] MEDS: IPRATROPIUM/ALBUTEROL 0.5-2.5 MG/3 ML AMPUL NEB SCH ×3 (08:42→20:34)
[2019-11-12] MEDS: FUROSEMIDE INJ/PF 20 MG/2 ML SDV IV SCH ×2 (09:16→21:45)
[2019-11-12] MEDS: VALSARTAN 80 MG TABLET PO SCH (09:16)
[2019-11-12] MEDS: ISOSORBIDE MONONITRATE 30 MG TAB.ER.24H PO SCH (09:17)
[2019-11-12] MEDS: CARVEDILOL 12.5 MG TABLET PO SCH ×2 (09:17→21:45)
[2019-11-12] MEDS: NICOTINE 21 MG/24 HR PATCH.TD24 TD SCH (09:17)
[2019-11-12] MEDS: CLOPIDOGREL BISULFATE 75 MG TABLET PO SCH (09:17)
[2019-11-12] MEDS: FAMOTIDINE 20 MG TABLET PO SCH ×2 (09:17→21:45)
[2019-11-12] MEDS: DOCUSATE SODIUM 100 MG CAPSULE PO SCH (09:18)
[2019-11-12] MEDS: ENOXAPARIN SODIUM INJ 40 MG/0.4 ML DISP.SYRIN SUBCUT SCH (09:19)
[2019-11-12] MEDS: DIGOXIN 0.25 MG TABLET PO SCH (09:24)
[2019-11-12] MEDS: UMECLIDINIUM BROMIDE 62.5 MCG/DOSE IH SCH (09:25)
[2019-11-12] MEDS ORDERED: (PENDING PHARMACY ID) (Tiotropium Bromide [Spiriva Handihaler 5 Cap/Kit (18 Mcg/Cap)] 1 CA IH SCH (10:00)
[2019-11-12] MEDS ORDERED: (PENDING PHARMACY ID) (Tiotropium Br/Olodaterol Hcl [Stiolto Respimat Inhal Spray] 2 PUFF) IH SCH (10:00)
--- NOTE | 2019-11-12 16:07 | PDOC PROGRESS REPORT ---
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 In ED he was found to have elevated troponins chest x-ray cardiomegaly with vascular prominence. Hospitalist consulted for admission. 11/12/2019. No acute events overnight. Left lower extremity swelling has improved, patient still have bilateral lower extremity swelling, stating that he does not take his Lasix because it makes him pee too much, denies any fever, chills, nausea, vomiting, diarrhea, constipation or any urinary symptoms. Possible discharge home tomorrow. Reason For Visit: ACUTE SYSTOLIC HEART FAILURE Physical Exam Vital Signs: Temp Pulse Resp BP Pulse Ox 97.6 F 69 16 137/75 H 97 11/12/19 14:52 11/12/19 14:52 11/12/19 14:52 11/12/19 14:52 11/12/19 14:52 Intake & Output 11/11/19 11/12/19 11/13/19 06:59 06:59 06:59 Intake Total 260 240 Output Total 320 Balance -60 240 Weight 62.5 kg General appearance: PRESENT: no acute distress, well-developed, well-nourished Head exam: PRESENT: atraumatic, normocephalic Respiratory exam: PRESENT: clear to auscultation khushboo. ABSENT: rales, rhonchi, wheezes GI/Abdominal exam: PRESENT: normal bowel sounds, soft. ABSENT: distended, guarding, mass, organolmegaly, rebound, tenderness Extremities exam: PRESENT: +1 edema Neurological exam: PRESENT: alert, awake, oriented to person, oriented to place, oriented to time, oriented to situation, CN II-XII grossly intact. ABSENT: motor sensory deficit Results Laboratory Results: 11/11/19 11:12 11/12/19 05:05 11/11/19 11/12/19 11/12/19 22:20 05:05 05:05 Retic Count (auto) 1.02 Sodium 138.9 Potassium 4.2 Chloride 109 H Carbon Dioxide 26 Anion Gap 4 L BUN 30 H Creatinine 1.57 H Est GFR ( Amer) 53 L Glucose 99 Calcium 8.6 Magnesium 1.7 Iron 75.5 TIBC 324 % Saturation 23 Ferritin 171.00 Total Bilirubin 0.8 AST 38 Alkaline Phosphatase 190 H Total Protein 5.8 L Albumin 3.0 L Vitamin B12 758.0 Folate > 20.00 Stool Occult Blood NEGATIVE 11/11/19 11:12 NT-Pro-B Natriuret Pep 31777 H Impressions: Chest X-Ray 11/11/19 10:19 IMPRESSION: BASILAR ATELECTASIS VERSUS SCARRING WITH SMALL PLEURAL EFFUSIONS. BORDERLINE CARDIOMEGALY WITH MILD VASCULAR PROMINENCE. Venous Doppler Study 11/11/19 13:59 IMPRESSION: NO EVIDENCE DVT OR SVT IN THE LEFT ARM. Assessment and Plan - Diagnosis (1) CHF exacerbation Qualifiers: Heart failure type: systolic Qualified Code(s): I50.23 - Acute on chronic systolic (congestive) heart failure Is this a current diagnosis for this admission?: Yes Plan: Improving. Bilateral lower extremity edema. Acute CHF exacerbation. History of CHF with ejection fraction 35 to 40%. BNP 5700. Continue telemetry, strict in and out, fluid restriction, IV diuretics, beta- blockers and JARED. Cardiology consulted. Recommendations noted. (2) Anemia Qualifiers: Chronic kidney disease stage: stage 3 (moderate) Is this a current diagnosis for this admission?: Yes Plan: History of pancytopenia. Hemoglobin 8-9. Multifactorial as per oncology note. Stool guaiac negative. Normal iron panel. Remain B12 WNL. Folic acid WNL. Oncology consulted. Please refer to note. Denies any hematemesis, hemoptysis, melena or hematochezia. Monitor H&H. Outpatient PCP and oncology follow-up. (3) CAD (coronary artery disease) Qualifiers: Coronary Disease-Associated Artery/Lesion type: [place] artery Is this a current diagnosis for this admission?: Yes Plan: Denies any anginal symptoms. Resume home meds. Outpatient PCP and cardiology follow-up. (4) HTN (hypertension) Is this a current diagnosis for this admission?: Yes Plan: Normotensive. Volume overload. Resume home meds. Adjust meds as needed. Outpatient PCP follow-up. (5) Tobacco dependence Is this a current diagnosis for this admission?: Yes Plan: Counseled on quitting. NicoDerm patch will be provided. (6) COPD (chronic obstructive pulmonary disease) Qualifiers: COPD type: chronic bronchitis Is this a current diagnosis for this admission?: Yes Plan: History of non-oxygen dependent COPD. Does not seem to be acutely exacerbated. Resume home meds. Outpatient PCP follow-up. - Time Time Spent with patient: 25-34 minutes Medications reviewed and adjusted accordingly: Yes Anticipated Discharge Disposition: Home with Home Health Anticipated Discharge Timeframe: within 24 hours
--- NOTE | 2019-11-12 20:55 | Progress Note ---
Provider Note Provider Note: CARDIOLOGY PROGRESS NOTE by Dr. Alicia Brizuela on 11/12/2019. OBJECTIVE: The patient denies any shortness of breath his leg edema has resolved is only trace edema. He denies any PND orthopnea. There is no palpitations. There is no firing of his AICD. There is no chest pain or discomfort. There is no atrioventricular arrhythmias seen on the monitor. PHYSICAL EXAMINATION: The patient is a frail build and appears to be chronically ill. In no acute distress Selected Entries 11/12/19 14:52 Temperature 97.6 F Temperature Oral Source Pulse Rate 69 Respiratory 16 Rate Blood Pressure 137/75 H Blood Pressure 95 Mean BP Location Left Arm BP Position Sitting O2 Sat by Pulse 97 Oximetry Oxygen Flow 2.00 Rate Oxygen Delivery Nasal Cannula Method HEAD: Is atraumatic normocephalic. EYES: Pupils are equal round regular reactive to light and accommodation. Extraocular movements are normal. There is no conjunctival pallor. There is no scleral icterus. EARS: Tympanic membranes are intact. External auditory canals are clear. NOSE: There is no deviated nasal septum. There is no inflammation of the nasal mucous membrane. MOUTH: Mucous membranes of mouth are moist. Tongue is moist. THROAT: There is no redness of the oropharynx. There is no exudates. 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 There is no catie-care ecchymosis. NECK: Supple. There is mild JVD present. Carotids are equal there is no bruit. There is no lymphadenopathy. There is no goiter. There is no accessory muscle respiration use. Trachea central. LUNGS: Shows diminished air entry prolonged expiration there is today no rales of CHF. There is no rhonchi or wheezing. There is no chest wall tenderness on palpation. On palpation there is hyperresonance. HEART: S1-S2 is heard. There is no S3 gallop. There is no S4 gallop there is systolic murmur left sternal border and the apex there is no rub. ABDOMEN: Soft. There is no paraspinal megaly. Bowel sounds are well heard. There is no hepatosplenomegaly. EXTREMITIES: There is diminished bilateral femoral pulses with bruits. 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 He has bilateral femoral bruits present. Leg pulses are diminished. There is no there is 1+ pedal edema bilaterally. There is no DVT or cellulitis. There is no cyanosis or clubbing. His left arm swelling is coming down. There is no evidence of SVT or DVT as per work-up. PROFESSOR OF PHYSICS: The patient is conscious awake alert oriented x3 with no focal deficits. PSYCHIATRIC: Patient is a patient judgment insight are intact his affect is normal. Labs- Entire Visit 11/11/19 11/11/19 11/11/19 10:30 11:12 11:12 WBC 2.9 L RBC 2.67 L Hgb 9.1 L Hct 27.9 L MCV 105 H MCH 34.2 H MCHC 32.7 RDW 19.6 H Plt Count 75 L Lymph % (Auto) 17.4 [place] % (Auto) 8.9 Eos % (Auto) 1.4 Baso % (Auto) 0.8 Reticulocyte # Absolute Neuts (auto) 2.1 Absolute Lymphs (auto) 0.5 Absolute Monos (auto) 0.3 Absolute Eos (auto) 0.0 Absolute Basos (auto) 0.0 Seg Neutrophils % 71.5 Retic Count (auto) Carbonic Acid HCO3/H2CO3 Ratio ABG pH ABG pCO2 ABG pO2 ABG HCO3 ABG Total CO2 ABG O2 Saturation ABG Base Excess FiO2 Sodium 137.4 Potassium 4.1 Chloride 107 Carbon Dioxide 26 Anion Gap 4 L BUN 25 H Creatinine 1.26 H Est GFR ( Amer) > 60 Est GFR (MDRD) Non-Af 57 L Glucose 95 Calcium 8.6 Magnesium Iron TIBC % Saturation Ferritin Total Bilirubin 0.7 Direct Bilirubin 0.2 Neonat Total Bilirubin Not Reportable Neonat Direct Bilirubin Not Reportable Neonat Indirect Bili Not Reportable AST 44 ALT 58 H Alkaline Phosphatase 222 H NT-Pro-B Natriuret Pep Total Protein 6.1 L Albumin 3.3 L Lipase 48.4 Vitamin B12 Folate Urine Color DARK YELLOW Urine Appearance SLIGHTLY-CLOUDY Urine pH 5.0 Ur Specific [place] 1.023 Urine Protein 100 H Urine Glucose (UA) NEGATIVE Urine Ketones NEGATIVE Urine Blood NEGATIVE Urine Nitrite NEGATIVE Urine Bilirubin NEGATIVE Urine Urobilinogen 2.0 H Ur Leukocyte Esterase NEGATIVE Urine WBC (Auto) 1 Urine RBC (Auto) 14 U Hyaline Cast (Auto) 1 Urine Bacteria (Auto) TRACE Squamous Epi Cells Auto <1 Urine Mucus (Auto) RARE Urine Ascorbic Acid 40 H Stool Occult Blood 11/11/19 11/11/19 11/11/19 11:12 14:33 22:20 WBC RBC Hgb Hct MCV MCH MCHC RDW Plt Count Lymph % (Auto) [place]ff[place] % (Auto) Eos % (Auto) Baso % (Auto) Reticulocyte # Absolute Neuts (auto) Absolute Lymphs (auto) Absolute Monos (auto) Absolute Eos (auto) Absolute Basos (auto) Seg Neutrophils % Retic Count (auto) Carbonic Acid 1.06 HCO3/H2CO3 Ratio 21:1 ABG pH 7.43 ABG pCO2 35.2 ABG pO2 72.2 L ABG HCO3 22.9 ABG Total CO2 24.0 ABG O2 Saturation 95.1 ABG Base Excess -1.0 FiO2 ROOM AIR Sodium Potassium Chloride Carbon Dioxide Anion Gap BUN Creatinine Est GFR ( Amer) Est GFR (MDRD) Non-Af Glucose Calcium Magnesium Iron TIBC % Saturation Ferritin Total Bilirubin Direct Bilirubin Neonat Total Bilirubin Neonat Direct Bilirubin Neonat Indirect Bili AST ALT Alkaline Phosphatase NT-Pro-B Natriuret Pep 56911 H Total Protein Albumin Lipase Vitamin B12 Folate Urine Color Urine Appearance Urine pH Ur Specific [place] Urine Protein Urine Glucose (UA) Urine Ketones Urine Blood Urine Nitrite Urine Bilirubin Urine Urobilinogen Ur Leukocyte Esterase Urine WBC (Auto) Urine RBC (Auto) U Hyaline Cast (Auto) Urine Bacteria (Auto) Squamous Epi Cells Auto Urine Mucus (Auto) Urine Ascorbic Acid Stool Occult Blood NEGATIVE 11/12/19 11/12/19 05:05 05:05 WBC RBC Hgb Hct MCV MCH MCHC RDW Plt Count Lymph % (Auto) [place] % (Auto) Eos % (Auto) Baso % (Auto) Reticulocyte # 0.027 L Absolute Neuts (auto) Absolute Lymphs (auto) Absolute Monos (auto) Absolute Eos (auto) Absolute Basos (auto) Seg Neutrophils % Retic Count (auto) 1.02 Carbonic Acid HCO3/H2CO3 Ratio ABG pH ABG pCO2 ABG pO2 ABG HCO3 ABG Total CO2 ABG O2 Saturation ABG Base Excess FiO2 Sodium 138.9 Potassium 4.2 Chloride 109 H Carbon Dioxide 26 Anion Gap 4 L BUN 30 H Creatinine 1.57 H Est GFR ( Amer) 53 L Est GFR (MDRD) Non-Af 44 L Glucose 99 Calcium 8.6 Magnesium 1.7 Iron 75.5 TIBC 324 % Saturation 23 Ferritin 171.00 Total Bilirubin 0.8 Direct Bilirubin 0.2 Neonat Total Bilirubin Not Reportable Neonat Direct Bilirubin Not Reportable Neonat Indirect Bili Not Reportable AST 38 ALT 50 Alkaline Phosphatase 190 H NT-Pro-B Natriuret Pep Total Protein 5.8 L Albumin 3.0 L Lipase Vitamin B12 758.0 Folate > 20.00 Urine Color Urine Appearance Urine pH Ur Specific [place] Urine Protein Urine Glucose (UA) Urine Ketones Urine Blood Urine Nitrite Urine Bilirubin Urine Urobilinogen Ur Leukocyte Esterase Urine WBC (Auto) Urine RBC (Auto) U Hyaline Cast (Auto) Urine Bacteria (Auto) Squamous Epi Cells Auto Urine Mucus (Auto) Urine Ascorbic Acid Stool Occult Blood Chest X-Ray 11/11/19 10:19 IMPRESSION: BASILAR ATELECTASIS VERSUS SCARRING WITH SMALL PLEURAL EFFUSIONS. BORDERLINE CARDIOMEGALY WITH MILD VASCULAR PROMINENCE. Venous Doppler Study 11/11/19 13:59 IMPRESSION: NO EVIDENCE DVT OR SVT IN THE LEFT ARM. IMPRESSION/RECOMMENDATION: 1. Acute on chronic systolic heart failure. Recommend switch to oral diuretics at a maintenance dose. Continue current ARB and beta-abhishek. 2. Dilated cardiomyopathy and ischemic cardiomyopathy with him moderately severely reduced LV ejection fraction. Continue current anti-his cardiomyopathy treatment. 3. COPD: At present no acute exacerbation. 4. Coronary artery disease. History of old myocardial infarction and history of coronary bypass graft surgery. No anginal symptoms. Continue anti-CAD medication in the form of aspirin,, beta-abhishek and nitrates. 5. History of hypertension: Blood pressure well controlled 6. History of AICD: No firing of his AICD recently. 7. Peripheral vascular disease: History of recent past history of left femoropopliteal bypass surgery. No symptoms. 8. Pancytopenia: Hematology consult appreciated. 9. Tobacco abuse disorder.: Patient counseled the risks and the risks of tobacco abuse and the benefits of tobacco cessation. Tobacco cessation counseling given 3 minutes spent on this patient Medications reviewed. Medical management and management plan discussed with the attending provider. Cardiac status is stable. Medical decision making is of moderate complexity. Continue current medications. We will sign off. Will follow the patient in the office.
[2019-11-12] MEDS: OXYCODONE-ACETAMINOPHEN 5-325 MG TABLET PO PRN (21:44)
[2019-11-12] MEDS: TEMAZEPAM 7.5 MG CAPSULE PO SCH (21:45)
--- NOTE | 2019-11-13 08:09 | PDOC PROGRESS REPORT ---
Subjective Progress Note for:: 11/13/19 Subjective:: Anasarca improved, overall patient doing better. Blood counts have been stable Reason For Visit: ACUTE SYSTOLIC HEART FAILURE Physical Exam Vital Signs: Temp Pulse Resp BP Pulse Ox 97.6 F 73 24 H 133/73 H 97 11/12/19 23:17 11/13/19 07:00 11/12/19 23:17 11/12/19 23:17 11/12/19 23:17 Intake & Output 11/12/19 11/13/19 11/14/19 06:59 06:59 06:59 Intake Total 260 490 Output Total 320 150 Balance -60 340 Weight 62.5 kg 58.4 kg General appearance: PRESENT: no acute distress, well-developed, well-nourished Head exam: PRESENT: atraumatic, normocephalic Eye exam: PRESENT: conjunctiva pink, EOMI, PERRLA. ABSENT: scleral icterus Ear exam: PRESENT: normal external ear exam Mouth exam: PRESENT: moist, tongue midline Neck exam: ABSENT: carotid bruit, JVD, lymphadenopathy, thyromegaly Respiratory exam: PRESENT: clear to auscultation khushboo. ABSENT: rales, rhonchi, wheezes Cardiovascular exam: PRESENT: RRR. ABSENT: diastolic murmur, rubs, systolic murmur Pulses: PRESENT: normal dorsalis pedis pul Vascular exam: PRESENT: normal capillary refill GI/Abdominal exam: PRESENT: normal bowel sounds, soft. ABSENT: distended, guarding, mass, organolmegaly, rebound, tenderness Rectal exam: PRESENT: deferred Extremities exam: PRESENT: full ROM. ABSENT: calf tenderness, clubbing, pedal edema Neurological exam: PRESENT: alert, awake, oriented to person, oriented to place, oriented to time, oriented to situation, CN II-XII grossly intact. ABSENT: motor sensory deficit Psychiatric exam: PRESENT: appropriate affect, normal mood. ABSENT: homicidal ideation, suicidal ideation Skin exam: PRESENT: dry, intact, warm. ABSENT: cyanosis, rash Results Laboratory Results: 11/11/19 11:12 11/12/19 05:05 11/11/19 11:12 NT-Pro-B Natriuret Pep 04230 H Impressions: Chest X-Ray 11/11/19 10:19 IMPRESSION: BASILAR ATELECTASIS VERSUS SCARRING WITH SMALL PLEURAL EFFUSIONS. BORDERLINE CARDIOMEGALY WITH MILD VASCULAR PROMINENCE. Venous Doppler Study 11/11/19 13:59 IMPRESSION: NO EVIDENCE DVT OR SVT IN THE LEFT ARM. 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 We will sign off thank you for the opportunity assist in this patient care. - Time Time Spent with patient: 15-24 minutes
[2019-11-13] MEDS: IPRATROPIUM/ALBUTEROL 0.5-2.5 MG/3 ML AMPUL NEB SCH (08:26)
[2019-11-13] MEDS: DIGOXIN 0.25 MG TABLET PO SCH (09:44)
[2019-11-13] MEDS: UMECLIDINIUM BROMIDE 62.5 MCG/DOSE IH SCH (09:44)
[2019-11-13] MEDS: VALSARTAN 80 MG TABLET PO SCH (09:44)
[2019-11-13] MEDS: FAMOTIDINE 20 MG TABLET PO SCH (09:45)
[2019-11-13] MEDS: FUROSEMIDE INJ/PF 20 MG/2 ML SDV IV SCH (09:45)
[2019-11-13] MEDS: NICOTINE 21 MG/24 HR PATCH.TD24 TD SCH (09:45)
[2019-11-13] MEDS: CARVEDILOL 12.5 MG TABLET PO SCH (09:45)
[2019-11-13] MEDS: CLOPIDOGREL BISULFATE 75 MG TABLET PO SCH (09:45)
[2019-11-13] MEDS: ISOSORBIDE MONONITRATE 30 MG TAB.ER.24H PO SCH (09:45)
[2019-11-13] MEDS: ENOXAPARIN SODIUM INJ 40 MG/0.4 ML DISP.SYRIN SUBCUT SCH (09:46)
[2019-11-13] MEDS: DOCUSATE SODIUM 100 MG CAPSULE PO SCH (09:46)
[2019-11-13 10:46] VITALS: BP 143/74
--- NOTE | 2019-11-15 15:45 | PDOC DISCHARGE SUMMARY ---
Impression - Admit/DC Date/PCP Admission Date/Primary Care Provider: 11/11/19 14:45 [facility] Discharge Date: 11/13/19 - Discharge Diagnosis (1) CHF exacerbation Is this a current diagnosis for this admission?: Yes (2) Anemia Is this a current diagnosis for this admission?: Yes (3) CAD (coronary artery disease) Is this a current diagnosis for this admission?: Yes (4) HTN (hypertension) Is this a current diagnosis for this admission?: Yes (5) Tobacco dependence Is this a current diagnosis for this admission?: Yes (6) COPD (chronic obstructive pulmonary disease) Is this a current diagnosis for this admission?: Yes - Additional Information Resuscitation Status: Full Code Discharge Diet: Cardiac Discharge Activity: Activity As Tolerated, Balance Activity w/Rest, Weigh Daily Referrals: PONCHO BARTHOLOMEW MD [ACTIVE STAFF] - 11/25/19 12:15 pm () Prescriptions: Furosemide [Lasix 40 mg Tablet] 40 mg PO QAM 30 Days #30 tablet Home Medications: Carvedilol 25 mg PO Q12 10/22/19 Clopidogrel Bisulfate [Plavix 75 mg Tablet] 75 mg PO DAILY 10/22/19 Digoxin [Lanoxin 0.25 mg Tablet] 0.25 mg PO DAILY 10/22/19 Isosorbide Mononitrate [Imdur 30 mg Tablet.er] 30 mg PO DAILY 10/22/19 Nitroglycerin [Nitrostat 0.4 mg (1/150 Gr) Tabs 25/Bottle] 0.4 mg SL Q5MP PRN 10/22/19 Rosuvastatin Calcium [Crestor] 20 mg PO QHS 10/22/19 Tiotropium Br/Olodaterol HCl [Stiolto Respimat Inhal [place]] 2 puff IH DAILY 10/22/19 Tiotropium Barn[place] [Spiriva Handihaler 5 Cap/Kit (18 Mcg/Cap)] 1 cap IH DAILY 10/22/19 Valsartan [Diovan 80 mg Tablet] 40 mg PO DAILY 10/22/19 Zolpidem Tartrate [Ambien] 10 mg PO HSP PRN 10/22/19 Furosemide [Lasix 40 mg Tablet] 40 mg PO QAM 30 Days #30 tablet 11/13/19 History of Present Illiness History of Present Illness: LORIE OLIVIA is a 69 year old male past medical history of CHF, COPD, CAD, hypertension, tobacco abuse who was recently discharged home from [facility] presenting to ED complaining of bilateral lower extremity edema, worsening dyspnea on exertion, and left upper extremity swelling, patient is stating that since being discharged he has been compliant with his medication has followed up with his medical records coordinator however he does not understand why he has lower extremity edema, patient denies any fever, chills, chest pain, orthopnea, paroxysmal nocturnal dyspnea, diarrhea, constipation or any urinary symptoms. In ED he was found to have elevated troponins chest x-ray cardiomegaly with vascular prominence. Hospitalist consulted for admission. Hospital Course Hospital Course: (1) CHF exacerbation Improving. Bilateral lower extremity edema. Acute CHF exacerbation. History of CHF with ejection fraction 35 to 40%. BNP 5700. Continue telemetry, strict in and out, fluid restriction, IV diuretics, beta- blockers and JARED. Cardiology consulted. Recommendations noted. (2) Anemia History of pancytopenia. Hemoglobin 8-9. Multifactorial as per oncology note. Stool guaiac negative. Normal iron panel. Remain B12 WNL. Folic acid WNL. Oncology consulted. Please refer to note. Denies any hematemesis, hemoptysis, melena or hematochezia. Monitor H&H. Outpatient PCP and oncology follow-up. (3) CAD (coronary artery disease) Denies any anginal symptoms. Resume home meds. Outpatient PCP and cardiology follow-up. (4) HTN (hypertension) Normotensive. Volume overload. Resume home meds. Adjust meds as needed. Outpatient PCP follow-up. (5) Tobacco dependence Counseled on quitting. NicoDerm patch will be provided. (6) COPD (chronic obstructive pulmonary disease) History of non-oxygen dependent COPD. Does not seem to be acutely exacerbated. Resume home meds. Outpatient PCP follow-up. Physical Exam Vital Signs: Temp Pulse Resp BP Pulse Ox 98.2 F 71 14 143/74 H 91 L 11/13/19 10:44 11/13/19 10:44 11/13/19 10:44 11/13/19 10:44 11/13/19 10:44 General appearance: PRESENT: no acute distress, well-developed, well-nourished Head exam: PRESENT: atraumatic, normocephalic Respiratory exam: PRESENT: clear to auscultation khushboo. ABSENT: rales, rhonchi, wheezes Cardiovascular exam: PRESENT: RRR. ABSENT: diastolic murmur, rubs, systolic murmur GI/Abdominal exam: PRESENT: normal bowel sounds, soft. ABSENT: distended, guarding, mass, organolmegaly, rebound, tenderness Neurological exam: PRESENT: alert, awake, oriented to person, oriented to place, oriented to time, oriented to situation, CN II-XII grossly intact. ABSENT: motor sensory deficit Results Laboratory Results: WBC 2.9 10^3/uL (4.0-10.5) L 11/11/19 11:12 RBC 2.67 10^6/uL (4.35-5.55) L 11/11/19 11:12 Hgb 9.1 g/dL (13.5-17.0) L 11/11/19 11:12 Hct 27.9 % (37.9-51.0) L 11/11/19 11:12 MCV 105 fl (80-97) H 11/11/19 11:12 MCH 34.2 pg (27.0-33.4) H 11/11/19 11:12 MCHC 32.7 g/dL (32.0-36.0) 11/11/19 11:12 RDW 19.6 % (11.5-14.0) H 11/11/19 11:12 Plt Count 75 10^3/uL (150-450) L 11/11/19 11:12 Lymph % (Auto) 17.4 % (13-45) 11/11/19 11:12 [place] % (Auto) 8.9 % (3-13) 11/11/19 11:12 Eos % (Auto) 1.4 % (0-6) 11/11/19 11:12 Baso % (Auto) 0.8 % (0-2) 11/11/19 11:12 Reticulocyte # 0.027 10^6/uL (0.028-0.122) L 11/12/19 05:05 Absolute Neuts (auto) 2.1 10^3/uL (1.7-8.2) 11/11/19 11:12 Absolute Lymphs (auto) 0.5 10^3/uL (0.5-4.7) 11/11/19 11:12 Absolute Monos (auto) 0.3 10^3/uL (0.1-1.4) 11/11/19 11:12 Absolute Eos (auto) 0.0 10^3/uL (0.0-0.6) 11/11/19 11:12 Absolute Basos (auto) 0.0 10^3/uL (0.0-0.2) 11/11/19 11:12 Seg Neutrophils % 71.5 % (42-78) 11/11/19 11:12 Retic Count (auto) 1.02 % (0.66-2.85) 11/12/19 05:05 Carbonic Acid 1.06 mmol/L (1.05-1.35) 11/11/19 14:33 HCO3/H2CO3 Ratio 21:1 11/11/19 14:33 ABG pH 7.43 (7.35-7.45) 11/11/19 14:33 ABG pCO2 35.2 mmHg (35-45) 11/11/19 14:33 ABG pO2 72.2 mmHg (80-100) L 11/11/19 14:33 ABG HCO3 22.9 mmol/L (20-24) 11/11/19 14:33 ABG Total CO2 24.0 mmol/L (23-27) 11/11/19 14:33 ABG O2 Saturation 95.1 % (94-98) 11/11/19 14:33 ABG Base Excess -1.0 mmol/L 11/11/19 14:33 FiO2 ROOM AIR 11/11/19 14:33 Sodium 138.9 mmol/L (137-145) 11/12/19 05:05 Potassium 4.2 mmol/L (3.6-5.0) 11/12/19 05:05 Chloride 109 mmol/L (98-107) H 11/12/19 05:05 Carbon Dioxide 26 mmol/L (22-30) 11/12/19 05:05 Anion Gap 4 (5-19) L 11/12/19 05:05 BUN 30 mg/dL (7-20) H 11/12/19 05:05 Creatinine 1.57 mg/dL (0.52-1.25) H 11/12/19 05:05 Est GFR ( Amer) 53 (>60) L 11/12/19 05:05 Est GFR (MDRD) Non-Af 44 (>60) L 11/12/19 05:05 Glucose 99 mg/dL (75-110) 11/12/19 05:05 Calcium 8.6 mg/dL (8.4-10.2) 11/12/19 05:05 Magnesium 1.7 mg/dL (1.6-2.3) 11/12/19 05:05 Iron 75.5 ug/dL (49-181) 11/12/19 05:05 TIBC 324 ug/dL (250-450) 11/12/19 05:05 % Saturation 23 % 11/12/19 05:05 Ferritin 171.00 ng/mL (17.9-464.0) 11/12/19 05:05 Total Bilirubin 0.8 mg/dL (0.2-1.3) 11/12/19 05:05 Direct Bilirubin 0.2 mg/dL (0.0-0.4) 11/12/19 05:05 Neonat Total Bilirubin Not Reportable 11/12/19 05:05 Neonat Direct Bilirubin Not Reportable 11/12/19 05:05 Neonat Indirect Bili Not Reportable 11/12/19 05:05 AST 38 U/L (17-59) 11/12/19 05:05 ALT 50 U/L (<50) 11/12/19 05:05 Alkaline Phosphatase 190 U/L (38-126) H 11/12/19 05:05 NT-Pro-B Natriuret Pep 24380 pg/mL (<125) H 11/11/19 11:12 Total Protein 5.8 g/dL (6.3-8.2) L 11/12/19 05:05 Albumin 3.0 g/dL (3.5-5.0) L 11/12/19 05:05 Lipase 48.4 U/L (23-300) 11/11/19 11:12 Vitamin B12 758.0 pg/mL (239-931) 11/12/19 05:05 Folate > 20.00 ng/mL (>2.76) 11/12/19 05:05 Urine Color DARK YELLOW 11/11/19 10:30 Urine Appearance SLIGHTLY-CLOUDY 11/11/19 10:30 Urine pH 5.0 (5.0-9.0) 11/11/19 10:30 Ur Specific [place] 1.023 11/11/19 10:30 Urine Protein 100 mg/dL (NEGATIVE) H 11/11/19 10:30 Urine Glucose (UA) NEGATIVE mg/dL (NEGATIVE) 11/11/19 10:30 Urine Ketones NEGATIVE mg/dL (NEGATIVE) 11/11/19 10:30 Urine Blood NEGATIVE (NEGATIVE) 11/11/19 10:30 Urine Nitrite NEGATIVE (NEGATIVE) 11/11/19 10:30 Urine Bilirubin NEGATIVE (NEGATIVE) 11/11/19 10:30 Urine Urobilinogen 2.0 mg/dL (<2.0) H 11/11/19 10:30 Ur Leukocyte Esterase NEGATIVE (NEGATIVE) 11/11/19 10:30 Urine WBC (Auto) 1 /HPF 11/11/19 10:30 Urine RBC (Auto) 14 /HPF 11/11/19 10:30 U Hyaline Cast (Auto) 1 /LPF 11/11/19 10:30 Urine Bacteria (Auto) TRACE /HPF 11/11/19 10:30 Squamous Epi Cells Auto <1 /HPF 11/11/19 10:30 Urine Mucus (Auto) RARE /LPF 11/11/19 10:30 Urine Ascorbic Acid 40 (NEGATIVE) H 11/11/19 10:30 Stool Occult Blood NEGATIVE (NEGATIVE) 11/11/19 22:20 11/11/19 11:12 NT-Pro-B Natriuret Pep 87323 H Impressions: Chest X-Ray 11/11/19 10:19 IMPRESSION: BASILAR ATELECTASIS VERSUS SCARRING WITH SMALL PLEURAL EFFUSIONS. BORDERLINE CARDIOMEGALY WITH MILD VASCULAR PROMINENCE. Venous Doppler Study 11/11/19 13:59 IMPRESSION: NO EVIDENCE DVT OR SVT IN THE LEFT ARM. Stroke Is this a Stroke Patient?: No Acute Heart Failure - Is this a Heart Failure Patient?: No
== END 2019-11-13 11:19 | disposition home or self-care (01) ==
LOC: ER 10:07 → INTOOBSV 14:45 → EH 14:45 → 4S 18:00
PROVIDERS: ADMIT Internal Medicine; ATTEND Internal Medicine
DX: I13.0 Hypertensive heart and chronic kidney disease with heart failure and stage 1 through stage 4 chronic kidney disease, or unspecified chronic kidney disease (principal); I50.23 Acute on chronic systolic (congestive) heart failure; N18.3 Chronic kidney disease, stage 3 (moderate); D63.8 Anemia in other chronic diseases classified elsewhere; F17.210 Nicotine dependence, cigarettes, uncomplicated; I25.10 Atherosclerotic heart disease of native coronary artery without angina pectoris; J42 Unspecified chronic bronchitis; D61.818 Other pancytopenia; K76.1 Chronic passive congestion of liver; R79.89 Other specified abnormal findings of blood chemistry; R05 Cough; I25.5 Ischemic cardiomyopathy; I42.0 Dilated cardiomyopathy; C44.209 Unspecified malignant neoplasm of skin of left ear and external auricular canal; E03.9 Hypothyroidism, unspecified; I73.9 Peripheral vascular disease, unspecified; I25.2 Old myocardial infarction; Z95.1 Presence of aortocoronary bypass graft; Z79.899 Other long term (current) drug therapy; Z79.02 Long term (current) use of antithrombotics/antiplatelets; Z87.01 Personal history of pneumonia (recurrent); Z95.5 Presence of coronary angioplasty implant and graft; Z95.810 Presence of automatic (implantable) cardiac defibrillator; Z95.828 Presence of other vascular implants and grafts
CPT/HCPCS: 93005; 99285; 96374; 36415 ×2; 82607; 82803; 82728; 82746; 83540; 83550; 83690; 83735; 85025; 82272; 85045; 80053 ×2; 81001; 83880; 93971; 71046; 93010; 94640 ×3; G0378 ×4; J3490 ×7; J1940 ×3

== ENCOUNTER 2019-12-24 18:00 | Inpatient (IN) | payer OTHER, MEDICARE ==
--- NOTE | 2019-12-24 19:49 | ER Document Report ---
ED Medical Screen (RME) - General Chief Complaint: General Weakness Stated Complaint: WEAKNESS/RIGHT EYE PAIN Time Seen by Provider: 12/24/19 19:39 Primary Care Provider: CHLOE ROTHMAN [Primary Care Provider] - Follow up as needed TRAVEL OUTSIDE OF THE [place] IN LAST 30 DAYS: No - HPI Notes: 12/24/19 19:47 69-year-old male with history of hypertension, acute coronary syndrome, perip heral vascular disease to the emergency department with complaints of progressively worsening weakness for the past month. He states about a month ago he had a bypass in his right leg and since then he is just not been doing well. He states he feels short of breath all the time and getting around his home is very difficult. He states he feels incredibly weak so much so that he cannot really get up and walk in his home. He lives by himself. He denies any chest pain. He is on a blood thinner. He takes Plavix. He is not diabetic. He has not been seeing any blood in his stool or in his urine. In triage he appears to be pale and is slightly tachypneic. I performed a brief medical screening exam on the patient determined that the patient needs further evaluation and management by main side provider. I have placed initial orders to help expedite care. - Related Data Allergies/Adverse Reactions: No Known Allergies Allergy (Verified 11/11/19 20:49) Past Medical History - Social History Frequency of alcohol use: None Drug Abuse: None - Past Medical History Cardiac Medical History: Reports: Hx Congestive Heart Failure, Hx Heart Attack, Hx Hypercholesterolemia, Hx Hypertension Pulmonary Medical History: Reports: Hx COPD Renal/ Medical History: Denies: Hx Peritoneal Dialysis GI Medical History: Reports: Hx Gastroesophageal Reflux Disease Psychiatric Medical History: Denies: Hx Depression Past Surgical History: Reports: Hx Abdominal Surgery - hernia x2, Hx Cardiac Catheterization - CABG, Hx Cardiac Surgery - stent, pacemaker/defibulator placed, Hx Coronary Artery Bypass Graft, Hx Herniorrhaphy - bilateral inguinal hernia repair, Hx Orthopedic Surgery, Hx Pacemaker Physical Exam - Vital signs Vitals: BP 114/78 12/24/19 18:07 Course - Vital Signs Vital signs: Temp Pulse Resp BP Pulse Ox 97.3 F 88 114/78 90 L 12/24/19 18:32 12/24/19 18:32 12/24/19 18:07 12/24/19 18:32 Doctor's Discharge - Discharge Referrals: [facility] [Primary [facility]] - Follow up as needed
--- NOTE | 2019-12-24 20:31 | ER Document Report ---
ED General - General Chief Complaint: General Weakness Stated Complaint: WEAKNESS/RIGHT EYE PAIN Time Seen by Provider: 12/24/19 19:39 Primary Care Provider: [facility] [Primary [facility]] - Follow up as needed TRAVEL OUTSIDE OF THE [place] IN LAST 30 DAYS: No - HPI Notes: 69-year-old male presents with generalized weakness. Patient states he has been feeling generally weak for the past 1 month, is been progressive in nature, onset after his last hospital discharge. States that he is so weak, he can barely get around his house. He has had multiple times where he feels so weak and unable to stand, he will sit himself down onto the floor and then will be unable to get up. He has had 3 occasions where he has had to call either neighbors or EMS to come get him up off the floor. He states today enough is enough. He did have a fall a few days ago, states that he was trying to get through a door but it did not open, he hit the right side of his head. He has not been able to take his medications for the past 3 days. He is noted weight loss recently, unsure how much, states he is still eating and drinking. He states that he has a history of skin cancer, no other known cancers. He additionally states that his right thigh is irritated, feels like something is in it, denies visual changes. Has chronic shortness of breath. - Related Data Allergies/Adverse Reactions: No Known Allergies Allergy (Verified 11/11/19 20:49) Past Medical History - General Information source: Patient - Social History Smoking Status: Current Every Day Smoker Frequency of alcohol use: None Drug Abuse: None Family History: Reviewed & Not Pertinent - Past Medical History Cardiac Medical History: Reports: Hx Congestive Heart Failure, Hx Heart Attack, Hx Hypercholesterolemia, Hx Hypertension Pulmonary Medical History: Reports: Hx COPD Renal/ Medical History: Denies: Hx Peritoneal Dialysis GI Medical History: Reports: Hx Gastroesophageal Reflux Disease Psychiatric Medical History: Denies: Hx Depression Past Surgical History: Reports: Hx Abdominal Surgery - hernia x2, Hx Cardiac Cat heterization - CABG, Hx Cardiac Surgery - stent, pacemaker/defibulator placed, Hx Coronary Artery Bypass Graft, Hx Herniorrhaphy - bilateral inguinal hernia repair, Hx Orthopedic Surgery, Hx Pacemaker Review of Systems - Review of Systems Constitutional: denies: Fever EENT: Eye pain, Eye discharge Cardiovascular: denies: Chest pain Respiratory: Short of breath Gastrointestinal: denies: Abdominal pain Genitourinary: No symptoms reported Musculoskeletal: denies: Joint pain Skin: No symptoms reported Neurological/Psychological: Weakness - Generalized Physical Exam - Vital signs Vitals: BP 114/78 12/24/19 18:07 - General General appearance: Alert In distress: None Notes: Chronically ill-appearing - HEENT Head: Normocephalic, Abrasions - Small, healing, right forehead Eyes: Other - Right eye has conjunctival irritation and some discharge, reactive chemosis lower temporal aspect Extraocular movements intact: Yes Pupils: PERRL Neck: Other - JVD - Respiratory Respiratory status: No: Tachypnea Breath sounds: Decreased air movement - Right lower, Rales Chest palpation: Other - Able to see patient's ICD under skin - Cardiovascular Rhythm: Regular Murmur: Yes - Abdominal Tenderness: Nontender - Extremities General upper extremity: Other - Thin upper extremities General lower extremity: No: Edema - Neurological Neuro grossly intact: Yes Cognition: Normal Orientation: AAOx4 - Psychological Associated symptoms: Normal affect - Skin Skin Temperature: Warm - Centrally, has some coolness to all distal extremities Course - Re-evaluation Re-evalutation: 69-year-old male with progressive generalized weakness, chronic shortness of breath, frequent falls, weight loss and no meds x3 days. On exam he is chronically ill-appearing, thin, evidence that he has had a decline in his health recently. He does have some rales and decreased air movement on the right side. He is 88 to 90% on room air, will start nasal cannula. I am concerned that he likely has a combination of CHF exacerbation, pneumonia, overall deconditioning. He additionally has a right eye conjunctivitis, Polytrim ordered. Given his use of Plavix, will obtain CT head given that he had a fall a few days ago to assess for subdural or other intracranial bleed. He currently is alert and oriented, neurologically intact. 12/24/19 22:37 No leukocytosis. Hemoglobin increased from previous. Thrombocytopenia, history of this. Electrolytes okay. Creatinine within range of previous values. Marked elevation of BNP with mild troponin leak. Digoxin subtherapeutic. Lasix and digoxin ordered. Chest x-ray with right consolidative changes, overall favoring edema, however will cover empirically with Rocephin/azithromycin. CT head negative for bleed - Vital Signs Vital signs: Temp Pulse Resp BP Pulse Ox 97.3 F 88 12 134/69 H 95 12/24/19 18:32 12/24/19 18:32 12/24/19 22:04 12/24/19 22:04 12/24/19 22:00 - Laboratory Result Diagrams: 12/24/19 21:19 12/24/19 21:19 Laboratory results interpreted by me: 12/24/19 12/24/19 12/24/19 21:19 21:19 21:19 RBC 3.66 L Hgb 12.5 L MCV 105 H MCH 34.2 H RDW 19.4 H Plt Count 45 L Lymph % (Auto) 5.9 L Absolute Lymphs (auto) 0.3 L Seg Neutrophils % 87.5 H PT 18.6 H APTT 36.0 H Sodium 136.2 L Carbon Dioxide 21 L BUN 68 H Creatinine 1.60 H Est GFR ( Amer) 52 L Est GFR (MDRD) Non-Af 43 L Magnesium 2.5 H Total Bilirubin 2.4 H Direct Bilirubin 1.4 H Alkaline Phosphatase 185 H NT-Pro-B Natriuret Pep Total Protein 6.0 L Albumin 3.3 L Digoxin < 0.40 L 12/24/19 21:19 RBC Hgb MCV MCH RDW Plt Count Lymph % (Auto) Absolute Lymphs (auto) Seg Neutrophils % PT APTT Sodium Carbon Dioxide BUN Creatinine Est GFR ( Amer) Est GFR (MDRD) Non-Af Magnesium Total Bilirubin Direct Bilirubin Alkaline Phosphatase NT-Pro-B Natriuret Pep 849684 H Total Protein Albumin Digoxin - Diagnostic Test Radiology reviewed: Image reviewed, Reports reviewed - EKG Interpretation by Me Additional EKG results interpreted by me: EKG interpreted by me. Sinus rhythm, rate 84. Widened QRS. QTc within normal limits. There is T wave inversion in V6. There a PVC. Discharge - Discharge Clinical Impression: Generalized weakness, Physical deconditioning, Medical non-compliance Acute exacerbation of CHF (congestive heart failure) Qualifiers: Heart failure type: systolic Qualified Code(s): I50.23 - Acute on chronic systolic (congestive) heart failure Conjunctivitis Qualifiers: Conjunctivitis type: acute Acute conjunctivitis type: bacterial Laterality: right Qualified Code(s): H10.31 - Unspecified acute conjunctivitis, right eye Disposition: ADMITTED INPATIENT Admitting Provider: Jazmine (Hospitalist) Unit Admitted: Telemetry [facility]errals: [facility] [Primary [facility]] - Follow up as needed
--- NOTE | 2019-12-24 20:37 | RADIOLOGY REPORT (SQ) ---
CLINICAL INDICATION: weakness. TECHNIQUE: A single portable AP view was obtained of the chest at 2052 hours. COMPARISON: October 28, 2019. FINDINGS: The cardiomediastinal silhouette is enlarged with postsurgical change. The lungs definite progressive airspace consolidative change right lung base right middle lobe and perhaps right lower lobe. Mild progressive airspace disease left lung base. No significant pleural fluid. No pneumothorax. The visualized bones are unremarkable. IMPRESSION: New right basilar airspace consolidative change, suspicious for pneumonia.
[2019-12-24] MEDS ORDERED: POLYMYXIN B SULFATE/TMP OPH SOLN 10 ML OD ONE (20:52)
--- NOTE | 2019-12-24 21:34 | RADIOLOGY REPORT (SQ) ---
CT HEAD WITHOUT IV CONTRAST HISTORY: Head trauma. COMPARISON: None. TECHNIQUE: CT scan of the brain was performed without IV contrast. This exam was performed according to our departmental dose-optimization program, which includes automated exposure control, adjustment of the mA and/or kV according to patient size and/or use of iterative reconstruction technique. FINDINGS: There are scattered areas of hypoattenuation within the periventricular white matter, which likely represent chronic microvascular ischemia. Old lacunar infarcts in the right thalamus and left basal ganglia. No evidence of acute infarction, intracranial hemorrhage, extra-axial fluid collection, or midline shift. No air-fluid levels are seen in the paranasal sinuses to suggest acute sinusitis. No depressed skull fracture. IMPRESSION: 1. No acute intracranial findings. 2. Senescent changes with chronic microvascular ischemia and old lacunar infarcts.
[2019-12-24 21:37] LABS: ABSOLUTE LYMPHOCYTES (AUTO) 0.3 10^3/uL (0.5-4.7); ABSOLUTE MONOCYTES (AUTO) 0.4 10^3/uL (0.1-1.4); ABSOLUTE NEUT (AUTO) 4.9 10^3/uL (1.7-8.2); BASOPHILS % (AUTO) 0.4 % (0-2); HEMATOCRIT 38.3 % (37.9-51.0); HEMOGLOBIN 12.5 g/dL (13.5-17.0); LYMPHOCYTES % (AUTO) 5.9 % (13-45); MEAN CORPUSCULAR HEMOGLOBIN 34.2 pg (27.0-33.4); MEAN CORPUSCULAR HGB CONC 32.6 g/dL (32.0-36.0); MEAN CORPUSCULAR VOLUME 105 fl (80-97); MONOCYTES % (AUTO) 6.2 % (3-13); RED BLOOD COUNT 3.66 10^6/uL (4.35-5.55); RED CELL DISTRIBUTION WIDTH 19.4 % (11.5-14.0); SEGMENTED NEUTROPHILS % (AUTO) 87.5 % (42-78); TOTAL CELLS COUNTED % (AUTO) 100 %; WHITE BLOOD COUNT 5.7 10^3/uL (4.0-10.5)
[2019-12-24 21:47] LABS: INTERNATIONAL RATION (INR) 1.54; PROTHROMBIN TIME 18.6 SEC (11.4-15.4)
[2019-12-24 21:53] LABS: ALBUMIN 3.3 g/dL (3.5-5.0); ALKALINE PHOSPHATASE 185 U/L (38-126); ANION GAP 10 (5-19); ASPARTATE AMINO TRANSFERASE 45 U/L (17-59); BILIRUBIN,DIRECT 1.4 mg/dL (0.0-0.4); BILIRUBIN,TOTAL 2.4 mg/dL (0.2-1.3); BLOOD UREA NITROGEN 68 mg/dL (7-20); CARBON DIOXIDE 21 mmol/L (22-30); CHLORIDE 105 mmol/L (98-107); GLUCOSE 92 mg/dL (75-110); POTASSIUM 4.3 mmol/L (3.6-5.0)
[2019-12-24 21:56] LABS: DIGOXIN < 0.40 ng/mL (0.8-2.0)
[2019-12-24 22:09] LABS: PLATELET COUNT 45 10^3/uL (150-450)
[2019-12-24 22:21] LABS: TROPONIN I 0.043 ng/mL
[2019-12-24] MEDS ORDERED: FUROSEMIDE INJ/PF 40 MG/4 ML SDV IV ONE (22:30)
[2019-12-24] MEDS ORDERED: DIGOXIN 0.25 MG TABLET PO ONE (22:41)
[2019-12-24] MEDS ORDERED: AZITHROMYCIN INJ 500 MG VIAL IV ONE (22:42)
[2019-12-24] MEDS ORDERED: PROMETHAZINE HCL INJ 25 MG/1 ML VIAL IV PRN (22:56)
[2019-12-24] MEDS ORDERED: TEMAZEPAM 7.5 MG CAPSULE PO PRN (22:56)
[2019-12-24] MEDS ORDERED: CEFTRIAXONE 1 GM/D5W RTU 1 GM/50 ML RTUPB IV ONE (23:00)
[2019-12-24] MEDS ORDERED: NITROGLYCERIN 0.4 MG/TAB 25 TAB/BOTTLE SL PRN (23:04)
[2019-12-25] MEDS: FUROSEMIDE INJ/PF 40 MG/4 ML SDV IV SCH ×2 (01:05→10:13)
--- NOTE | 2019-12-25 01:16 | PDOC H&P ---
History of Present Illness Admission Date/PCP: 12/24/19 23:01 [facility] History of Present Illness: LORIE OLIVIA is a 69 year old male past medical history of severe CHF, chronic anemia, CAD, hypertension, tobacco dependence, oxygen dependent COPD, and unfortunately history of medical noncompliance with recurrent admission for acute CHF exacerbation, last admission 11/11/2019. Patient presenting to ED complaining of worsening of generalized weakness, stating that he cannot do pretty much anything at home, has not fallen however not able to ambulate without any assistance, patient is stating that he takes his medication intermittently and the reason is that he does not have the energy to get his medication and he is living by himself and he gets help from his neighbors once a while. Patient denies any orthopnea, paroxysmal nocturnal dyspnea, focal neurological symptoms, weight changes, chest pain, shortness of breath, fever, chills, nausea, vomiting. Planing of chronic constipation, p.o. tolerant, stating that he eats adequately and drinks adequately at home. Patient is stating that he lives at home by himself does not think he is able to take care of himself at home and would like to consider being sent to SNF. In ED he was noted to have mildly elevated troponin, severely elevated proBNP, and SPO2 of 87% on room air. CT head was negative, chest x-ray showed new right basilar airspace consolidative changes suspicion for pneumonia. Hospitalist was consulted for admission. Past Medical History Cardiac Medical History: Reports: Congestive Heart Failure, Myocardial Infarction, Hyperlipidema, Hypertension Pulmonary Medical History: Reports: Chronic Obstructive Pulmonary Disease (COPD) GI Medical History: Reports: Gastroesophageal Reflux Disease Psychiatric Medical History: Denies: Depression Past Surgical History Past Surgical History: Reports: Cardiac Catheterization - CABG, Coronary Artery Bypass Graft, Herniorrhaphy - bilateral inguinal hernia repair, Orthopedic Surgery, Pacemaker Social History Smoking Status: Current Every Day Smoker Frequency of Alcohol Use: None Hx Recreational Drug Use: No Hx Prescription Drug Abuse: No Family History Family History: Reviewed & Not Pertinent Parental Family History Reviewed: Yes Children Family History Reviewed: Yes Sibling(s) Family History Reviewed.: Yes Medication/Allergy Home Medications: Carvedilol 25 mg PO Q12 10/22/19 Clopidogrel Bisulfate [Plavix 75 mg Tablet] 75 mg PO DAILY 10/22/19 Digoxin [Lanoxin 0.25 mg Tablet] 0.25 mg PO DAILY 10/22/19 Isosorbide Mononitrate [Imdur 30 mg Tablet.er] 30 mg PO DAILY 10/22/19 Nitroglycerin [Nitrostat 0.4 mg (1/150 Gr) Tabs 25/Bottle] 0.4 mg SL Q5MP PRN 10/22/19 Rosuvastatin Calcium [Crestor] 20 mg PO QHS 10/22/19 Tiotropium Br/Olodaterol HCl [Stiolto Respimat Inhal Reading] 2 puff IH DAILY 10/22/19 Tiotropium [place] [Spiriva Handihaler 5 Cap/Kit (18 Mcg/Cap)] 1 cap IH DAILY 10/22/19 Valsartan [Diovan 80 mg Tablet] 40 mg PO DAILY 10/22/19 Zolpidem Tartrate [Ambien] 10 mg PO HSP PRN 10/22/19 Furosemide [Lasix 40 mg Tablet] 40 mg PO QAM 30 Days #30 tablet 11/13/19 Allergies/Adverse Reactions: No Known Allergies Allergy (Verified 11/11/19 20:49) Review of Systems Review of Systems: as hpi Physical Exam Vital Signs: Temp Pulse Resp BP Pulse Ox 97.7 F 92 18 133/87 H 94 12/25/19 00:40 12/25/19 00:40 12/25/19 00:40 12/25/19 00:40 12/25/19 00:40 Intake & Output 12/23/19 12/24/19 12/25/19 06:59 06:59 06:59 Weight 55.792 kg General appearance: PRESENT: no acute distress, disheveled, other - Appears weak Head exam: PRESENT: atraumatic, normocephalic Neck exam: ABSENT: carotid bruit, JVD, lymphadenopathy, thyromegaly Respiratory exam: PRESENT: clear to auscultation khushboo. ABSENT: rales, rhonchi, wheezes Cardiovascular exam: PRESENT: RRR. ABSENT: diastolic murmur, rubs, systolic murmur GI/Abdominal exam: PRESENT: normal bowel sounds, soft. ABSENT: distended, guarding, mass, organolmegaly, rebound, tenderness Neurological exam: PRESENT: alert, awake, oriented to person, oriented to place, oriented to time, oriented to situation, CN II-XII grossly intact. ABSENT: motor sensory deficit Results Laboratory Results: 12/24/19 21:19 12/24/19 21:19 12/24/19 12/24/19 21:19 21:19 WBC 5.7 RBC 3.66 L Hgb 12.5 L Hct 38.3 MCV 105 H MCH 34.2 H MCHC 32.6 RDW 19.4 H Plt Count 45 L Seg Neutrophils % 87.5 H Sodium 136.2 L Potassium 4.3 Chloride 105 Carbon Dioxide 21 L Anion Gap 10 BUN 68 H Creatinine 1.60 H Est GFR ( Amer) 52 L Glucose 92 Calcium 9.0 Phosphorus 4.0 Magnesium 2.5 H Total Bilirubin 2.4 H AST 45 Alkaline Phosphatase 185 H Total Protein 6.0 L Albumin 3.3 L 12/24/19 21:19 Troponin I 0.043 NT-Pro-B Natriuret Pep [id number] H Impressions: Chest X-Ray 12/24/19 19:50 IMPRESSION: New right basilar airspace consolidative change, suspicious for pneumonia. Head CT 12/24/19 20:48 IMPRESSION: 1. No acute intracranial findings. 2. Senescent changes with chronic microvascular ischemia and old lacunar infarcts. Assessment and Plan - Diagnosis (1) NYHA class 3 acute on chronic systolic heart failure Is this a current diagnosis for this admission?: Yes Plan: Acute on chronic systolic heart failure. Worsening systolic heart failure, patient pretty much cannot do much without getting short of breath. Followed by Dr. Castaneda. History of medication noncompliance. [place]BNP [id number] [place] [id number]. 2D echo on 11/03/2019 with ejection fraction of 30%. Admit to telemetry, cardiac diet, strict in and out, fluid restriction, IV diuretics, digoxin Resume ARB, uptitrate as possible. Resume beta-blockers, uptitrate as possible. Consult Dr. Castaneda his flexboard operator. Follow-up recommendation. (2) Pneumonia Qualifiers: Pneumonia type: due to unspecified organism Laterality: right Lung locat ion: lower lobe of lung Qualified Code(s): J18.9 - Pneumonia, unspecified organism Is this a current diagnosis for this admission?: Yes Plan: Likely community-acquired, due to gram-positive's including strep pneumo. Denies any exposure to anybody with COVID 19 pneumonia. Empiric IV antibiotics, sputum culture, blood culture. (3) Generalized weakness Is this a current diagnosis for this admission?: Yes Plan: Likely due to worsening heart failure complicated pneumonia and underlying chronic pancytopenia and COPD. Will consult PT OT. Consult discharge planning for possible placement. Plan as per above. (4) Medical non-compliance Is this a current diagnosis for this admission?: Yes Plan: Patient advised on compliance. Patient is stating that he is too weak to take his medication as he cannot able to ambulate. Patient has asked to be evaluated for possible SNF placement. Discharge planning has been consulted. (5) Acute respiratory failure with hypoxia Is this a current diagnosis for this admission?: Yes Plan: Multifactorial, likely due to acute systolic heart failure, pneumonia located by underlying COPD. Plan as per above. (6) CAD (coronary artery disease) Qualifiers: Coronary Disease-Associated Artery/Lesion type: [place] artery Is this a current diagnosis for this admission?: Yes Plan: Denies any anginal symptoms, mildly elevated troponins, likely due to demand mismatch, no acute EKG changes. Continue antiplatelets, beta-blockers, JARED, statins. (7) COPD (chronic obstructive pulmonary disease) Qualifiers: COPD type: COPD with acute exacerbation Qualified Code(s): J44.1 - Chronic obstructive pulmonary disease with (acute) exacerbation Is this a current diagnosis for this admission?: Yes Plan: History of oxygen dependent COPD. Does not appear to be exacerbated. Continue supplemental, PRN DuoNebs, PRN BiPAP, LABA, LABA, ICS. Flutter valve and incentive spirometry. (8) HTN (hypertension) Is this a current diagnosis for this admission?: Yes Plan: Normotensive. Appears euvolemic clinically. Resume home meds. Adjust meds as needed. (9) Pancytopenia Is this a current diagnosis for this admission?: Yes Plan: History of chronic pancytopenia. Patient has been evaluated by hematology in the past. Denies any hematemesis, hemoptysis, nosebleed, easy bleeding, hematuria, melena or hematochezia. Outpatient PCP and hematology follow-up. - Time Time Spent with patient: 35 or more minutes Smoking Cessation Education: over 10 minutes Medications reviewed and adjusted accordingly: Yes Anticipated Discharge Disposition: Long Term Facility Anticipated Discharge Timeframe: when bed available
[2019-12-25] MEDS ORDERED: METOPROLOL TARTRATE PF/INJ 5 MG/5 ML SDV IV PRN (01:18)
[2019-12-25] MEDS ORDERED: HYDRALAZINE HCL INJ/PF 20 MG/1 ML SDV IV PRN (01:18)
[2019-12-25] MEDS: FAMOTIDINE 20 MG TABLET PO SCH ×3 (02:29→22:29)
[2019-12-25 03:05] LABS: ALKALINE PHOSPHATASE 185 U/L (38-126); ANION GAP 11 (5-19); ASPARTATE AMINO TRANSFERASE 42 U/L (17-59); BILIRUBIN,DIRECT 1.4 mg/dL (0.0-0.4); BILIRUBIN,TOTAL 2.3 mg/dL (0.2-1.3); BLOOD UREA NITROGEN 69 mg/dL (7-20); CARBON DIOXIDE 20 mmol/L (22-30); CHLORIDE 107 mmol/L (98-107); GLUCOSE 98 mg/dL (75-110); PHOSPHORUS 3.9 mg/dL (2.5-4.5); POTASSIUM 4.1 mmol/L (3.6-5.0); TOTAL PROTEIN 5.5 g/dL (6.3-8.2)
[2019-12-25 03:15] LABS: HEMATOCRIT 32.5 % (37.9-51.0); HEMOGLOBIN 10.9 g/dL (13.5-17.0); MEAN CORPUSCULAR HEMOGLOBIN 34.4 pg (27.0-33.4); MEAN CORPUSCULAR HGB CONC 33.4 g/dL (32.0-36.0); MEAN CORPUSCULAR VOLUME 103 fl (80-97); RED BLOOD COUNT 3.16 10^6/uL (4.35-5.55); RED CELL DISTRIBUTION WIDTH 19.2 % (11.5-14.0); WHITE BLOOD COUNT 6.2 10^3/uL (4.0-10.5)
[2019-12-25 03:17] LABS: PLATELET COUNT 43 10^3/uL (150-450)
[2019-12-25 03:22] LABS: FREE T4 (FREE THYROXINE) 0.99 ng/dL (0.78-2.19)
[2019-12-25 03:36] LABS: THYROID STIMULATING HORMONE 5.46 uIU/mL (0.47-4.68)
[2019-12-25 05:18] LABS: APPEARANCE,URINE CLEAR; BILIRUBIN,URINE NEGATIVE (NEGATIVE); COLOR,URINE STRAW; GLUCOSE, URINE NEGATIVE (NEGATIVE); KETONES,URINE NEGATIVE (NEGATIVE); PROTEIN,URINE NEGATIVE (NEGATIVE); URINE SPECIFIC GRAVITY 1.006; UROBILINOGEN,URINE NEGATIVE mg/dL (<2.0)
[2019-12-25] MEDS: HEPARIN SOD (PORCINE) 5,000 UNIT/ML 1 ML VIAL SUBCUT SCH ×3 (05:48→22:38)
--- NOTE | 2019-12-25 08:31 | EKG REPORT ---
SEVERITY:- ABNORMAL ECG - SINUS RHYTHM VENTRICULAR PREMATURE COMPLEX NONSPECIFIC INTRAVENTRICULAR CONDUCTION DELAY LOW VOLTAGE IN FRONTAL LEADS LVH WITH SECONDARY REPOLARIZATION ABNORMALITY : Confirmed by: Alicia Brizuela MD 25-Dec-2019 08:30:18
[2019-12-25] MEDS ORDERED: DOCUSATE SODIUM 100 MG CAPSULE PO SCH (10:00)
[2019-12-25] MEDS: VALSARTAN 40 MG TABLET PO SCH (10:09)
[2019-12-25] MEDS: DIGOXIN 0.05 MG/ML SOLN 60 ML PO SCH ×2 (10:09→10:30)
[2019-12-25] MEDS: CARVEDILOL 6.25 MG TABLET PO SCH ×2 (10:09→22:29)
[2019-12-25] MEDS: CLOPIDOGREL BISULFATE 75 MG TABLET PO SCH (10:09)
[2019-12-25] MEDS: FLUTICASONE/UMECLIDIN/VILANTER 100-62.5-25 MCG/DOSE IH SCH (10:14)
[2019-12-25] MEDS: DIGOXIN 0.25 MG TABLET PO SCH (15:14)
[2019-12-25] MEDS ORDERED: DEXTROSE 5%-LACTATED RINGERS 1,000 ML IV PRN (16:38)
--- NOTE | 2019-12-25 18:46 | ADVANCED CARE ---
- Diagnosis (1) NYHA class 4 heart failure with reduced ejection fraction Diagnosis Current: Yes (2) Right heart failure (secondary to left heart failure) Diagnosis Current: Yes (3) Failure to thrive syndrome, adult Diagnosis Current: Yes Resuscitation Status: Do Not Resuscitate Discussion: Patient has had drastically reduced quality of life in the last few months. He is unable to do anything but lie in bed. He has no local family or friends. He is severely dyspnic with minimal exertion and, now, even at rest. He is unable to eat due to severe SOB and fatigue. He has lost a tremendous amount of weight in the last few months and is cachectic. We discussed the natural course of CHF and my concern for his having end-stage heart failure. He seems to appreciate his poor overall prognosis. He has changed his code status to DNR/DNI. Time Spent: >20 minutes
--- NOTE | 2019-12-25 19:05 | PDOC PROGRESS REPORT ---
Subjective Progress Note for:: 12/25/19 Subjective:: Patient is lying comfortably on his right side with hospital bed flat. His primary complaint today is generalized weakness. Upon questioning he denies headache, fever, chills, chest pain, SOB, palpitations, abdominal pain, NVD, urinary symptoms, anxiety or depression. Discussed case with nurse who states that patient's O2sat was 88 on room air. She placed him on NC with increase in O2sat. Nurse also states that she was contacted by a nurse at [facility] where patient had recently been treated by Dr. Domingo for skin cancer on left cheek. Contact information left was . Reason For Visit: ACUTE CHF Physical Exam Vital Signs: Temp Pulse Resp BP Pulse Ox 97.9 F 84 12 110/64 94 12/25/19 07:35 12/25/19 07:35 12/25/19 07:35 12/25/19 07:35 12/25/19 07:35 Intake & Output 12/24/19 12/25/19 12/26/19 06:59 06:59 06:59 Intake Total 300 Output Total 450 Balance -150 Weight 57.4 kg General appearance: PRESENT: no acute distress, hard of hearing, thin Head exam: PRESENT: atraumatic, normocephalic Eye exam: PRESENT: conjunctiva pink. ABSENT: scleral icterus Mouth exam: PRESENT: moist, tongue midline Neck exam: PRESENT: full ROM. ABSENT: carotid bruit, JVD, lymphadenopathy, tenderness Respiratory exam: PRESENT: clear to auscultation kh[place]boo, symmetrical, unlabored. ABSENT: accessory muscle use, decreased breath sounds, tachypnea Cardiovascular exam: PRESENT: RRR. ABSENT: clicks, diastolic murmur, gallop, rubs, systolic murmur Pulses: PRESENT: normal radial pulses, normal dorsalis pedis pul GI/Abdominal exam: PRESENT: normal bowel sounds, soft. ABSENT: distended, firm, guarding, organolmegaly, tenderness Rectal exam: PRESENT: deferred Extremities exam: PRESENT: full ROM. ABSENT: calf tenderness, clubbing, pedal edema Musculoskeletal exam: PRESENT: full ROM. ABSENT: deformity, dislocation Neurological exam: PRESENT: alert, altered, awake, oriented to person, oriented to place, oriented to time, CN II-XII grossly intact. ABSENT: motor sensory deficit Psychiatric exam: PRESENT: appropriate affect, normal mood Skin exam: PRESENT: dry, intact, warm Results Laboratory Results: 12/25/19 02:36 12/25/19 02:36 12/24/19 12/24/19 12/25/19 21:19 21:19 02:36 WBC 5.7 6.2 RBC 3.66 L 3.16 L Hgb 12.5 L 10.9 L Hct 38.3 32.5 L MCV 105 H 103 H MCH 34.2 H 34.4 H MCHC 32.6 33.4 RDW 19.4 H 19.2 H Plt Count 45 L 43 L Seg Neutrophils % 87.5 H Sodium 136.2 L Potassium 4.3 Chloride 105 Carbon Dioxide 21 L Anion Gap 10 BUN 68 H Creatinine 1.60 H Est GFR ( Amer) 52 L Glucose 92 Calcium 9.0 Phosphorus 4.0 Magnesium 2.5 H Total Bilirubin 2.4 H AST 45 Alkaline Phosphatase 185 H Total Protein 6.0 L Albumin 3.3 L TSH Free T4 Urine Color Urine Appearance Urine pH Ur Specific [place] Urine Protein Urine Glucose (UA) Urine Ketones Urine Blood Urine RBC (Auto) 12/25/19 12/25/19 12/25/19 02:36 02:36 04:50 WBC RBC Hgb Hct MCV MCH MCHC RDW Plt Count Seg Neutrophils % Sodium 137.8 Potassium 4.1 Chloride 107 Carbon Dioxide 20 L Anion Gap 11 BUN 69 H Creatinine 1.60 H Est GFR ( Amer) 52 L Glucose 98 Calcium 9.0 Phosphorus 3.9 Magnesium 2.4 H Total Bilirubin 2.3 H AST 42 Alkaline Phosphatase 185 H Total Protein 5.5 L Albumin 3.0 L TSH 5.46 H Free T4 0.99 Urine Color STRAW Urine Appearance CLEAR Urine pH 5.0 Ur Specific [place] 1.006 Urine Protein NEGATIVE Urine Glucose (UA) NEGATIVE Urine Ketones NEGATIVE Urine Blood SMALL H Urine RBC (Auto) 0 12/24/19 12/25/19 12/25/19 21:19 02:36 09:38 Troponin I 0.043 0.045 0.045 NT-Pro-B Natriuret Pep [id number] H Impressions: Chest X-Ray 12/24/19 19:50 IMPRESSION: New right basilar airspace consolidative change, suspicious for pneumonia. Head CT 12/24/19 20:48 IMPRESSION: 1. No acute intracranial findings. 2. Senescent changes with chronic microvascular ischemia and old lacunar infarcts. 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) Is this a current diagnosis for this admission?: Yes (3) Pneumonia Qualifiers: Pneumonia type: due to unspecified organism Laterality: right Lung location: lower lobe of lung Qualified Code(s): J18.9 - Pneumonia, unspecified organism Is this a current diagnosis for this admission?: Yes (4) Generalized weakness Is this a current diagnosis for this admission?: Yes (5) Medical non-compliance Is this a current diagnosis for this admission?: Yes (6) Acute respiratory failure with hypoxia Is this a current diagnosis for this admission?: Yes (7) CAD (coronary artery disease) Qualifiers: Coronary Disease-Associated Artery/Lesion type: [place] artery Is this a current diagnosis for this admission?: Yes (8) COPD (chronic obstructive pulmonary disease) Qualifiers: COPD type: COPD with acute exacerbation Qualified Code(s): J44.1 - Chronic obstructive pulmonary disease with (acute) exacerbation Is this a current diagnosis for this admission?: Yes (9) HTN (hypertension) Is this a current diagnosis for this admission?: Yes (10) Pancytopenia Is this a current diagnosis for this admission?: Yes - Plan Summary Summary: LORIE OLIVIA is a 69 year old male past medical history of severe CHF, chronic anemia, CAD, hypertension, tobacco dependence, oxygen dependent COPD, and unfortunately history of medical noncompliance with recurrent admission for acute CHF exacerbation, last admission 11/11/2019. Seen in the ED on 12/23 regarding worsening generalized weakness. He is currently living alone and experiences difficulties with medication compliance. ED evaluation showed mildily elevated troponins, elevated BNP and CXR concerning for RLL pneumonia. He is followed by Dr. Castaneda, vocational examiner who has been consulted. Patient is interested in SNF placement following disposition from hospital. NYHA class 4 acute heart failure with reduced ejection fraction Patient experiences symptoms while at rest. He is severely limited in his ability to carry out physical activity. Symptoms have become so severe he has essentially become bed bound in the past month. Worsening left sided heart failure causing right sided heart failure. proBNP [id number] [place] [id number]. 2D echo on 11/03/2019 with ejection fraction of 30%. Repeat Echo today, results pending. Pt followed by Dr. Castaneda. Consulted for f/u recommendations Continue with telemetry, cardiac diet, strict in and out, fluid restriction, IV diuretics, digoxin Resume ARB, uptitrate as possible. Resume beta-blockers, uptitrate as possible. Consider hospice/SNF placement. Right heart failure (Secondary to Left heart failure) Treatment as discussed above Pneumonia Unknown etiology. Possible aspiration pneumonia -RLL -History of full body generalized weakness puts him at risk for aspiration He is afebrile with regular heart rate. WBC within normal limits. Denies cough or pleuritic CP. I do not believe antibiotic treatment is required at this time. Discontinue antibiotic treatment. Monitor vitals. Speech consulted to evaluate for aspiration risk. Generalized weakness Likely due to multiple comorbidities including worsening heart failure, unde rlying chronic, pancytopenia and COPD. PT and OT consulted. Consult discharge planning for possible placement. Plan as per above. Medical non-compliance Patient advised on compliance. Patient is stating that he is too weak to take his medication as he cannot able to ambulate. Patient has asked to be evaluated for possible SNF placement. Discharge planning has been consulted. Acute respiratory failure with hypoxia Multifactorial. Currently on 2L, sats high 90s. Continue to monitor. Plan as per above. CAD (coronary artery disease) Denies any anginal symptoms, mildly elevated troponins, likely due to demand mismatch, no acute EKG changes. Continue antiplatelets, beta-blockers, JARED, statins. Dr. Castaneda consulted COPD (chronic obstructive pulmonary disease) History of oxygen dependent COPD. Does not appear to be exacerbated. Continue supplemental, PRN DuoNebs, PRN BiPAP, LABA, LABA, ICS. Flutter valve and incentive spirometry. Continue to monitor HTN (hypertension) Normotensive. Appears euvolemic clinically. Resume home meds. Adjust meds as needed. Pancytopenia History of chronic pancytopenia. Patient has been evaluated by hematology in the past. Denies any hematemesis, hemoptysis, nosebleed, easy bleeding, hematuria, melena or hematochezia. Outpatient PCP and hematology follow-up. - Time Time Spent with patient: 25-34 minutes Medications reviewed and adjusted accordingly: Yes Anticipated [facility]charge [facility]position: [facility] Facility Anticipated Discharge Timeframe: when bed available
--- NOTE | 2019-12-25 21:56 | PDOC CONSULTATION ---
Consultation-Blank Consultation: CARDIOLOGY CONSULTATION by Dr. Alicia Brizuela on 12/25/2019. Patient seen at 12 noon. 60 minutes spent on the patient with more than 50% of time spent in direct patient care. REASON FOR CONSULTATION: Patient with severe fatigue in a patient who has a history of severely reduced LV ejection fraction. Patient known to me and follows up with me in the clinic. CONSULT REQUESTING PHYSICIAN: [facility] HISTORY OF PRESENT ILLNESS: Patient is a 69-year-old male with a known history of coronary artery disease, history of myocardial infarction and coronary artery bypass graft surgery, history of severely reduced LV ejection fraction, history of AICD. He also has a history of COPD. And also has hypothyroidism and tobacco abuse disorder who states since the past few days has been feeling very weak and fatigued. He also is not able to do any daily work a nd requires help ambulating. He denies any PND or orthopnea but he is able to ambulate only with assistance. There is no firing of his AICD. He denies any shortness of breath wheezing cough or upper or lower respiratory tract infection. He has no chest pain or discomfort. There is no PND orthopnea or leg edema. His appetite is decreased. He appears also to be depressed although there is no history of depression. Past Medical History Cardiac Medical History: Reports: Congestive Heart Failure, Myocardial Infarction, Hyperlipidema, Hypertension Pulmonary Medical History: Reports: Chronic Obstructive Pulmonary Disease (COPD) GI Medical History: Reports: Gastroesophageal Reflux Disease Psychiatric Medical History: Denies: Depression Past Surgical History Past Surgical History: Reports: Cardiac Catheterization - CABG, Coronary Artery Bypass Graft, Herniorrhaphy - bilateral inguinal hernia repair, Orthopedic Surgery, Pacemaker Social History Smoking Status: Current Every Day Smoker Frequency of Alcohol Use: None Hx Recreational Drug Use: No Hx Prescription Drug Abuse: No Family History Family History: Reviewed & Not Pertinent Parental Family History Reviewed: Yes Children Family History Reviewed: Yes Sibling(s) Family History Reviewed.: Yes Medication/Allergy Home Medications: Carvedilol 25 mg PO Q12 10/22/19 Clopidogrel Bisulfate [Plavix 75 mg Tablet] 75 mg PO DAILY 10/22/19 Digoxin [Lanoxin 0.25 mg Tablet] 0.25 mg PO DAILY 10/22/19 Isosorbide Mononitrate [Imdur 30 mg Tablet.er] 30 mg PO DAILY 10/22/19 Nitroglycerin [Nitrostat 0.4 mg (1/150 Gr) Tabs 25/Bottle] 0.4 mg SL Q5MP PRN 10/22/19 Rosuvastatin Calcium [Crestor] 20 mg PO QHS 10/22/19 Tiotropium Br/Olodaterol HCl [Stiolto Respimat Inhal [place]] 2 puff IH DAILY 10/22/19 Tiotropium [place] [Spiriva Handihaler 5 Cap/Kit (18 Mcg/Cap)] 1 cap IH DAILY 10/22/19 Valsartan [Diovan 80 mg Tablet] 40 mg PO DAILY 10/22/19 Zolpidem Tartrate [Ambien] 10 mg PO HSP PRN 10/22/19 Furosemide [Lasix 40 mg Tablet] 40 mg PO QAM 30 Days #30 tablet 11/13/19 Allergies/Adverse Reactions: No Known Allergies Allergy (Verified 11/11/19 20:49) RESUSCITATION STATUS: The patient is a full code. His daughter is his surrogate healthcare decision maker. Current Medications Generic Name Dose Route Start Last Admin Trade Name Freq PRN Reason Stop Dose Admin Acetaminophen 325 mg 12/24/19 22:56 Tylenol 325 Mg Tablet PO 01/23/20 22:55 Q4HP PRN FEVER >101 Albuterol/Ipratropium 3 ml 12/24/19 22:56 Duoneb 3 Ml Ampul NEB 01/23/20 22:55 [id number] PRN SHORTNESS OF BREATH Atorvastatin Calcium 40 mg 12/25/19 22:00 12/26/19 21:56 Lipitor 40 Mg Tablet PO 01/24/20 21:59 40 mg QHS DENG Administration Carvedilol 6.25 mg 12/25/19 10:00 12/26/19 21:56 Coreg 6.25 Mg Tablet PO 01/24/20 09:59 6.25 mg Q12 DENG Administration Clopidogrel Bisulfate 75 mg 12/25/19 10:00 12/26/19 09:02 Plavix 75 Mg Tablet PO 01/24/20 09:59 75 mg DAILY DENG Administration Digoxin 0.25 mg 12/25/19 14:00 12/26/19 09:01 Lanoxin 0.25 Mg Tablet PO 01/24/20 13:59 0.25 mg DAILY DENG Administration Famotidine 20 mg 12/24/19 23:00 12/26/19 21:56 Pepcid 20 Mg Tablet PO 01/23/20 22:59 20 mg Q12 DENG Administration Fluoxetine HCl 20 mg 12/26/19 14:00 12/26/19 17:49 Prozac 20 Mg Capsule PO 01/25/20 13:59 Not Given DAILY DENG Fluticasone/Vilanterol 1 inh 12/25/19 10:00 12/26/19 09:01 Trelegy 100-62.5-25 Mcg Ellipta 14 Dose/Dpi IH 01/24/20 09:59 1 inhaler DAILY DENG Administration Heparin Sodium (Porcine) 5,000 unit 12/25/19 06:00 12/26/19 21:56 Heparin Inj 5,000 Units/Ml 1 Ml Vial SUBCUT 01/24/20 05:59 Not Given Q8 DENG Hydralazine HCl 10 mg 12/25/19 01:18 Apresoline Inj/Pf 20 Mg/1 Ml Sdv IV 01/24/20 01:17 Q3HP PRN Give For Sbp > [150] Metoprolol Tartrate 2.5 mg 12/25/19 01:18 Lopressor Inj/Pf 5 Mg/5 Ml Sdv IV 01/24/20 01:17 Q6HP PRN Give For Hr > [150] Nitroglycerin 1 tab 12/24/19 23:04 Nitrostat 0.4 Mg (1/150 Gr) Tabs 25/Bottle SL 01/23/20 23:03 Q5MP PRN FOR CHEST PAIN Ondansetron HCl 4 mg 12/24/19 22:56 Zofran Inj/Pf 4 Mg/2 Ml Sdv IV 01/23/20 22:55 Q4HP PRN FOR NAUSEA/VOMITING Oxycodone/Acetaminophen 1 tab 12/24/19 22:56 Percocet 5-325 Mg Tablet PO 12/31/19 22:55 Q4HP PRN FOR PAIN SCALE 4-5 Valsartan 40 mg 12/25/19 10:00 12/26/19 09:01 Diovan 40 Mg Tablet PO 01/24/20 09:59 40 mg DAILY DENG Administration Discontinued Medications Generic Name Dose Route Start Last Admin Trade Name Freq PRN Reason Stop Dose Admin Azithromycin 500 mg 12/24/19 22:42 12/25/19 08:49 Zithromax Inj 500 Mg Vial IV 12/24/19 22:43 Not Given IVBAG (ED) ONE Digoxin 0.25 mg 12/24/19 22:41 12/24/19 22:59 Lanoxin 0.25 Mg Tablet PO 12/24/19 22:42 0.25 mg NOW ONE Administration Digoxin 0.25 mg 12/25/19 10:00 12/25/19 10:30 Lanoxin 0.05 Mg/Ml Soln PO 01/24/20 09:59 Not Given DAILY DENG Docusate Sodium 100 mg 12/25/19 10:00 Colace 100 Mg Capsule PO 01/24/20 09:59 DAILY DENG Furosemide 40 mg 12/24/19 22:30 12/24/19 23:00 Lasix Inj/Pf 40 Mg/4 Ml Sdv IV 12/24/19 22:31 40 mg NOW ONE Administration Furosemide 40 mg 12/24/19 23:15 12/25/19 10:13 Lasix Inj/Pf 40 Mg/4 Ml Sdv IV 01/23/20 23:14 40 mg Q12 DENG Administration Ceftriaxone Sodium/Dextrose 1 gm in 50 mls @ 100 mls/hr 12/24/19 23:00 12/24/19 23:02 Rocephin Rtu 1 Gm/D5w 50 Ml Premix IV 12/24/19 23:29 100 mls/hr NOW ONE 100 mls/hr Administration Ceftriaxone Sodium/Dextrose 1 gm in 50 mls @ 100 mls/hr 12/25/19 22:00 Rocephin Rtu 1 Gm/D5w 50 Ml Premix IV 01/01/20 21:59 QHS [facility] Azithromycin 500 mg/ Dextrose 250 mls @ 250 mls/hr 12/25/19 22:00 IV 01/01/20 21:59 QHS [facility] Dextrose/Lactated Ringer's 1,000 mls @ 50 mls/hr 12/25/19 16:38 12/25/19 17:38 D5lr 1000 Ml Iv Soln IV 01/24/20 16:37 50 mls/hr CONTINUOUS PRN Administration THIS MED IS NOT "PRN" Polymyxin/Trimethoprim Sulfate 1 drop 12/24/19 20:52 12/24/19 22:28 Polytrim Oph Soln 10 Ml OD 12/24/19 20:53 1 drop NOW ONE Administration Promethazine HCl 6.25 mg 12/24/19 22:56 Phenergan Inj 25 Mg/1 Ml Vial IV 01/23/20 22:55 Q4HP PRN FOR NAUSEA/VOMITING Temazepam 7.5 mg 12/24/19 22:56 Restoril 7.5 Mg Capsule PO 12/31/19 22:55 HSP PRN SLEEP OR INSOMNIA REVIEW OF SYSTEMS: CONSTITUTIONAL: There is no fever chills or rigors, except for the feeling of generalized fatigue and weakness. He is unable to perform any activities. And appears to be listless. He also needs help ambulating. This is new.. He denies any fever chills or rigors. HEAD: No history of headaches or head injury. EYES: No history of amblyopia diplopia no history of amaurosis fugax. EARS: No history of tinnitus. This patient has hearing loss, no vertigo. NOSE: The patient is seasonal allergies, but no hayfever. There is no nosebleeds. MOUTH: No altered taste sensation no ulcers in the mouth THROAT: No history of odynophagia dysphagia no recurrent sore throats. SKIN: No history of pruritus no history of allergies discoloration of the skin. He has history of skin can cer, on the skin behind the left ear, and is for radiation therapy. He has no history of psoriasis. NECK: No neck pain. No lymphadenopathy. No goiter. LUNGS: He has a history of COPD continues to smoke. He has no symptoms of acute exacerbation of COPD. No history of wheezing. No history of pulmonary embolism. No history of pleuritic chest pain no hemoptysis. No history of sleep apnea. No symptoms of upper or lower respiratory tract infections. HEART: History of hypertension. . History of coronary artery disease ,and myocardial infarction. History of coronary bypass graft surgery. No anginal symptoms. History of cardiomyopathy with severely reduced LV ejection fraction. History of AICD. Patient has no PND orthopnea leg edema. No palpitations syncope. No firing of his AICD.. ENDOCRINE:There is no history of diabetes. No history of heat or cold intolerance no history of polydipsia polyuria. The patient has hypothyroidism and is on replacement. RENAL: No history of chronic kidney disease. No symptoms of hematuria pyuria or dysuria. No symptoms of UTI. GI: No history of GI bleed no history of GERD no history of peptic ulcer disease no history of fatty food intolerance. No history of hepatitis. No history of jaundice. No history of altered bowel movements. He has decreased appetite and poor intake and appears to be severely dehydrated.. MUSCULOSKELETAL: Denies history of arthritis or collagen vascular disease. SOLDER SPRAYER: No history of TIA or CVA. No history of headaches migraines or seizures. No history of sleep apnea. PSYCHIATRIC: No history of anxiety or depression. But the patient appears to be depressed at present. No history of suicidal ideation. No history of homicidal ideation. VASCULAR: He has significant bilateral peripheral vascular disease status post left femoral bypass surgery he has right greater than left bilateral calf claudication. . No DVT. . HEMATOLOGICAL: No history of bleeding diathesis no history of clotting dis orders. He presents with pancytopenia, asymptomatic. PHYSICAL EXAMINATION: The patient is a frail build and appears to be chronically ill. In no acute distress. Selected Entries 12/25/19 11:12 Temperature 97.8 F Temperature Oral Source Pulse Rate 89 Respiratory 16 Rate Blood Pressure 120/76 Blood Pressure 90 Mean BP Location Left Arm BP Position Supine O2 Sat by Pulse 93 Oximetry Oxygen Delivery Room Air Method HEAD: Is atraumatic normocephalic. EYES: Pupils are equal round regular reactive to light and accommodation. Extraocular movements are normal. There is no conjunctival pallor. There is no scleral icterus. EARS: Tympanic membranes are intact. External auditory canals are clear. NOSE: There is no deviated nasal septum. There is no inflammation of the nasal mucous membrane. MOUTH: Mucous membranes of mouth are dry. Tongue is right. THROAT: There is no redness of the oropharynx. There is no exudates. 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 There is no catie-care ecchymosis. NECK: Supple. There is no JVD present. Carotids are equal there is no bruit. There is no lymphadenopathy. There is no goiter. There is no accessory muscle respiration use. Trachea central. LUNGS: Shows diminished air entry prolonged expiration there is bibasilar rales of CHF. There is no rhonchi or wheezing. There is no chest wall tenderness on palpation. On palpation there is hyperresonance. HEART: S1-S2 is heard. There is no S3 gallop. There is no S4 gallop there is systolic murmur left sternal border and the apex there is no rub. ABDOMEN: Soft. There is no paraspinal megaly. Bowel sounds are well heard. There is no hepatosplenomegaly. EXTREMITIES: There is diminished bilateral femoral pulses with bruits. 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 He has bilateral femoral bruits present. Leg pulses are diminished. There is no pedal edema bilaterally. There is no DVT or cellulitis. There is no cyanosis or clubbing. SOLDER SPRAYER: The patient is conscious awake alert oriented x3 with no focal deficits. PSYCHIATRIC: Patient is a patient judgment insight are intact his affect is withdrawn, and he appears to be depressed. Labs- Entire Visit 12/24/19 12/24/19 12/24/19 21:19 21:19 21:19 WBC 5.7 RBC 3.66 L Hgb 12.5 L Hct 38.3 MCV 105 H MCH 34.2 H MCHC 32.6 RDW 19.4 H Plt Count 45 L Lymph % (Auto) 5.9 L [place] % (Auto) 6.2 Eos % (Auto) 0.0 Baso % (Auto) 0.4 Absolute Neuts (auto) 4.9 Absolute Lymphs (auto) 0.3 L Absolute Monos (auto) 0.4 Absolute Eos (auto) 0.0 Absolute Basos (auto) 0.0 Seg Neutrophils % 87.5 H PT 18.6 H INR 1.54 APTT 36.0 H Sodium 136.2 L Potassium 4.3 Chloride 105 Carbon Dioxide 21 L Anion Gap 10 BUN 68 H Creatinine 1.60 H Est GFR ( Amer) 52 L Est GFR (MDRD) Non-Af 43 L Glucose 92 POC Glucose Calcium 9.0 Phosphorus 4.0 Magnesium 2.5 H Total Bilirubin 2.4 H Direct Bilirubin 1.4 H Neonat Total Bilirubin Not Reportable Neonat Direct Bilirubin Not Reportable Neonat Indirect Bili Not Reportable AST 45 ALT 23 Alkaline Phosphatase 185 H Creatine Kinase Troponin I NT-Pro-B Natriuret Pep Total Protein 6.0 L Albumin 3.3 L TSH Free T4 Urine Color Urine Appearance Urine pH Ur Specific [place] Urine Protein Urine Glucose (UA) Urine Ketones Urine Blood Urine Nitrite (Reflex) Urine Bilirubin Urine Urobilinogen Leukocyte Esterase Rfl Urine RBC (Auto) U Hyaline Cast (Auto) Squamous Epi Cells Auto Urine Mucus (Auto) Urine Ascorbic Acid Digoxin < 0.40 L 12/24/19 12/25/19 12/25/19 21:19 02:36 02:36 WBC 6.2 RBC 3.16 L Hgb 10.9 L Hct 32.5 L MCV 103 H MCH 34.4 H MCHC 33.4 RDW 19.2 H Plt Count 43 L Lymph % (Auto) [place] % (Auto) Eos % (Auto) Baso % (Auto) Absolute Neuts (auto) Absolute Lymphs (auto) Absolute Monos (auto) Absolute Eos (auto) Absolute Basos (auto) Seg Neutrophils % PT INR APTT Sodium 137.8 Potassium 4.1 Chloride 107 Carbon Dioxide 20 L Anion Gap 11 BUN 69 H Creatinine 1.60 H Est GFR ( Amer) 52 L Est GFR (MDRD) Non-Af 43 L Glucose 98 POC Glucose Calcium 9.0 Phosphorus 3.9 Magnesium 2.4 H Total Bilirubin 2.3 H Direct Bilirubin 1.4 H Neonat Total Bilirubin Not Reportable Neonat Direct Bilirubin Not Reportable Neonat Indirect Bili Not Reportable AST 42 ALT 22 Alkaline Phosphatase 185 H Creatine Kinase Troponin I 0.043 NT-Pro-B Natriuret Pep [id number] H Total Protein 5.5 L Albumin 3.0 L TSH Free T4 Urine Color Urine Appearance Urine pH Ur Specific [place] Urine Protein Urine Glucose (UA) Urine Ketones Urine Blood Urine Nitrite (Reflex) Urine Bilirubin Urine Urobilinogen Leukocyte Esterase Rfl Urine RBC (Auto) U Hyaline Cast (Auto) Squamous Epi Cells Auto Urine Mucus (Auto) Urine Ascorbic Acid Digoxin 12/25/19 12/25/19 12/25/19 02:36 02:36 04:50 WBC RBC Hgb Hct MCV MCH MCHC RDW Plt Count Lymph % (Auto) [place] % (Auto) Eos % (Auto) Baso % (Auto) Absolute Neuts (auto) Absolute Lymphs (auto) Absolute Monos (auto) Absolute Eos (auto) Absolute Basos (auto) Seg Neutrophils % PT INR APTT Sodium Potassium Chloride Carbon Dioxide Anion Gap BUN Creatinine Est GFR ( Amer) Est GFR (MDRD) Non-Af Glucose POC Glucose Calcium Phosphorus Magnesium Total Bilirubin Direct Bilirubin Neonat Total Bilirubin Neonat Direct Bilirubin Neonat Indirect Bili AST ALT Alkaline Phosphatase Creatine Kinase Troponin I 0.045 NT-Pro-B Natriuret Pep Total Protein Albumin TSH 5.46 H Free T4 0.99 Urine Color STRAW Urine Appearance CLEAR Urine pH 5.0 Ur Specific [place] 1.006 Urine Protein NEGATIVE Urine Glucose (UA) NEGATIVE Urine Ketones NEGATIVE Urine Blood SMALL H Urine Nitrite (Reflex) NEGATIVE Urine Bilirubin NEGATIVE Urine Urobilinogen NEGATIVE Leukocyte Esterase Rfl NEGATIVE Urine RBC (Auto) 0 U Hyaline Cast (Auto) 1 Squamous Epi Cells Auto <1 Urine Mucus (Auto) RARE Urine Ascorbic Acid NEGATIVE Digoxin Chest X-Ray 12/24/19 19:50 IMPRESSION: New right basilar airspace consolidative change, suspicious for pneumonia. Head CT 12/24/19 20:48 IMPRESSION: 1. No acute intracranial findings. 2. Senescent changes with chronic microvascular ischemia and old lacunar infarcts. IMPRESSION/RECOMMENDATION: IMPRESSION/RECOMMENDATION: 1. Dehydration: We will start IV fluids in the form of D5 Ringer's lactate at 50 mL/h for a liter.. We will have the patient drink some Ensure periodically. 2. Depression most likely the patient is depressed. Will continue observation prior to starting on antidepressants. 3. Dilated cardiomyopathy and ischemic cardiomyopathy with him moderately severely reduced LV ejection fraction. Continue current anti-his cardiomyopathy treatment. 4. COPD: At present no acute exacerbation. 5. Coronary artery disease. History of old myocardial infarction and history of coronary bypass graft surgery. No anginal symptoms. Continue anti-CAD medication, as being down now. 6. History of hypertension: Blood pressure well controlled 7. History of AICD: No firing of his AICD recently. 8. Peripheral vascular disease: History of recent past history of left f emoropopliteal bypass surgery. 9. Prerenal state with chronic kidney disease secondary to cardiorenal syndrome. 10. Tobacco abuse disorder.: Patient counseled the risks and the risks of tobacco abuse and the benefits of tobacco cessation. Tobacco cessation counseling given 3 minutes spent on this patient. 11. History of pancytopenia. 12. History of facial skin cancer. The patient will be requiring radiation treatment as per Dr. Domingo, radiation oncologist in [place]. Medications reviewed. Medical regimen and management plan discussed with attending provider on the case. 60 minutes spent as patient more than 50% time spent direct patient care. Medical decision making is of high complexity. Will follow.
[2019-12-25] MEDS ORDERED: AZITHROMYCIN 500 MG in DEXTROSE 5%-WATER 250 ML IV SCH (22:00)
[2019-12-25] MEDS ORDERED: CEFTRIAXONE 1 GM/D5W RTU 1 GM/50 ML RTUPB IV SCH (22:00)
[2019-12-25] MEDS: ATORVASTATIN CALCIUM 40 MG TABLET PO SCH (22:29)
[2019-12-26] MEDS: HEPARIN SOD (PORCINE) 5,000 UNIT/ML 1 ML VIAL SUBCUT SCH ×3 (06:02→21:56)
[2019-12-26] MEDS: VALSARTAN 40 MG TABLET PO SCH (09:01)
[2019-12-26] MEDS: FLUTICASONE/UMECLIDIN/VILANTER 100-62.5-25 MCG/DOSE IH SCH (09:01)
[2019-12-26] MEDS: DIGOXIN 0.25 MG TABLET PO SCH (09:01)
[2019-12-26] MEDS: CARVEDILOL 6.25 MG TABLET PO SCH ×2 (09:02→21:56)
[2019-12-26] MEDS: CLOPIDOGREL BISULFATE 75 MG TABLET PO SCH (09:02)
[2019-12-26] MEDS: FAMOTIDINE 20 MG TABLET PO SCH ×2 (09:02→21:56)
[2019-12-26 09:50] LABS: ABSOLUTE LYMPHOCYTES (AUTO) 0.3 10^3/uL (0.5-4.7); ABSOLUTE MONOCYTES (AUTO) 0.2 10^3/uL (0.1-1.4); ABSOLUTE NEUT (AUTO) 2.6 10^3/uL (1.7-8.2); BASOPHILS % (AUTO) 0.1 % (0-2); EOSINOPHILS % (AUTO) 0.8 % (0-6); HEMATOCRIT 27.9 % (37.9-51.0); HEMOGLOBIN 9.4 g/dL (13.5-17.0); LYMPHOCYTES % (AUTO) 8.8 % (13-45); MEAN CORPUSCULAR HEMOGLOBIN 34.6 pg (27.0-33.4); MEAN CORPUSCULAR HGB CONC 33.8 g/dL (32.0-36.0); MEAN CORPUSCULAR VOLUME 103 fl (80-97); MONOCYTES % (AUTO) 7.1 % (3-13); RED BLOOD COUNT 2.72 10^6/uL (4.35-5.55); RED CELL DISTRIBUTION WIDTH 19.2 % (11.5-14.0); SEGMENTED NEUTROPHILS % (AUTO) 83.2 % (42-78); TOTAL CELLS COUNTED % (AUTO) 100 %; WHITE BLOOD COUNT 3.2 10^3/uL (4.0-10.5)
[2019-12-26 10:08] LABS: BLOOD UREA NITROGEN 58 mg/dL (7-20); CALCIUM 8.1 mg/dL (8.4-10.2)
[2019-12-26 10:09] LABS: ALBUMIN 2.4 g/dL (3.5-5.0); ALKALINE PHOSPHATASE 182 U/L (38-126); ANION GAP 7 (5-19); ASPARTATE AMINO TRANSFERASE 38 U/L (17-59); BILIRUBIN,TOTAL 1.5 mg/dL (0.2-1.3); CARBON DIOXIDE 25 mmol/L (22-30); CHLORIDE 104 mmol/L (98-107); CREATINE KINASE 47 U/L (55-170); PHOSPHORUS 2.7 mg/dL (2.5-4.5); POTASSIUM 3.3 mmol/L (3.6-5.0); TOTAL PROTEIN 4.7 g/dL (6.3-8.2)
[2019-12-26 10:14] LABS: GLUCOSE 62 mg/dL (75-110)
[2019-12-26 10:16] LABS: TROPONIN I 0.04 ng/mL
[2019-12-26 10:17] LABS: PLATELET COUNT 41 10^3/uL (150-450)
--- NOTE | 2019-12-26 16:22 | PDOC PROGRESS REPORT ---
Subjective Progress Note for:: 12/26/19 Subjective:: Patient is resting comfortably with head of bed elevated. He continues to complain of generalized weakness, with no improvement from yesterday. He is able to eat and drink without complaints of SOB. Upon questioning he denies headache, fever, chills, chest pain, SOB, palpitations, abdominal pain, NVD, urinary symptoms, anxiety or depression. Contacted [facility] for patient records. Software Deployment Engineer provided me with contact information for Calista Morales , who is patient's daughter who lives in [place]. Reason For Visit: ACUTE CHF Physical Exam Vital Signs: Temp Pulse Resp BP Pulse Ox 97.1 F 69 23 H 103/59 L 90 L 12/26/19 10:00 12/26/19 08:00 12/26/19 08:00 12/26/19 08:00 12/26/19 08:00 Intake & Output 12/25/19 12/26/19 12/27/19 06:59 06:59 06:59 Intake Total 300 1220 Output Total 450 2825 Balance -150 -1605 Weight 57.4 kg 57.4 kg General appearance: PRESENT: no acute distress, thin Head exam: PRESENT: atraumatic, normocephalic Eye exam: PRESENT: conjunctiva pink Mouth exam: PRESENT: moist, tongue midline Respiratory exam: PRESENT: clear to auscultation [place], symmetrical, unlabored. ABSENT: crackles, rales, tachypnea Cardiovascular exam: PRESENT: RRR, +S1, +S2. ABSENT: bradycardia, diastolic murmur, systolic murmur GI/Abdominal exam: PRESENT: normal bowel sounds, other - Diastasis recti. ABSENT: tenderness Rectal exam: PRESENT: deferred Gentrourinary exam: PRESENT: indwelling catheter Extremities exam: PRESENT: full ROM. ABSENT: calf tenderness, tenderness Musculoskeletal exam: PRESENT: ambulatory, full ROM. ABSENT: deformity, dislocation Neurological exam: PRESENT: alert, awake, oriented to person, oriented to place, oriented to time, CN II-XII grossly intact. ABSENT: motor sensory deficit Psychiatric exam: PRESENT: appropriate affect, normal mood Skin exam: PRESENT: dry, warm Results Laboratory Results: 12/26/19 09:20 12/26/19 09:20 12/26/19 12/26/19 09:20 09:20 WBC 3.2 L RBC 2.72 L Hgb 9.4 L Hct 27.9 L MCV 103 H MCH 34.6 H MCHC 33.8 RDW 19.2 H Plt Count 41 L Seg Neutrophils % 83.2 H Sodium 135.8 L Potassium 3.3 L Chloride 104 Carbon Dioxide 25 Anion Gap 7 BUN 58 H Creatinine 1.52 H Est GFR ( Amer) 55 L Glucose 62 L Calcium 8.1 L Phosphorus 2.7 Magnesium 2.0 Total Bilirubin 1.5 H AST 38 Alkaline Phosphatase 182 H Total Protein 4.7 L Albumin 2.4 L 12/24/19 12/25/19 12/25/19 21:19 02:36 09:38 Creatine Kinase Troponin I 0.043 0.045 0.045 NT-Pro-B Natriuret Pep [id number] H 12/26/19 12/26/19 09:20 09:20 Creatine Kinase 47 L Troponin I 0.040 NT-Pro-B Natriuret Pep [id number] H Impressions: Chest X-Ray 12/24/19 19:50 IMPRESSION: New right basilar airspace consolidative change, suspicious for pneumonia. Head CT 12/24/19 20:48 IMPRESSION: 1. No acute intracranial findings. 2. Senescent changes with chronic microvascular ischemia and old lacunar infarcts. 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) Is this a current diagnosis for this admission?: Yes (3) Pneumonia Qualifiers: Pneumonia type: due to unspecified organism Laterality: right Lung location: lower lobe of lung Qualified Code(s): J18.9 - Pneumonia, unspecified organism Is this a current diagnosis for this admission?: Yes (4) Generalized weakness Is this a current diagnosis for this admission?: Yes (5) Medical non-compliance Is this a current diagnosis for this admission?: Yes (6) Acute respiratory failure with hypoxia Is this a current diagnosis for this admission?: Yes (7) CAD (coronary artery disease) Qualifiers: Coronary Disease-Associated Artery/Lesion type: [place] artery Is this a current diagnosis for this admission?: Yes (8) COPD (chronic obstructive pulmonary disease) Qualifiers: COPD type: COPD with acute exacerbation Qualified Code(s): J44.1 - Chronic obstructive pulmonary disease with (acute) exacerbation Is this a current diagnosis for this admission?: Yes (9) HTN (hypertension) Is this a current diagnosis for this admission?: Yes (10) Pancytopenia Is this a current diagnosis for this admission?: Yes - Plan Summary Summary: LORIE OLIVIA is a 69 year old male past medical history of severe CHF, chronic anemia, CAD, hypertension, tobacco dependence, oxygen dependent COPD, and unfortunately history of medical noncompliance with recurrent admission for acute CHF exacerbation, last admission 11/11/2019. Seen in the ED on 12/23 regarding worsening generalized weakness. He is currently living alone and experiences difficulties with medication compliance. ED evaluation showed mildily elevated troponins, elevated BNP and CXR concerning for RLL pneumonia. He is followed by Dr. Castaneda, television production clerk who has been consulted. Patient is interested in SNF placement following disposition from hospital. NYHA class 4 acute heart failure with reduced ejection fraction Patient experiences symptoms while at rest. He is severely limited in his ability to carry out physical activity. Symptoms have become so severe he has essentially become bed bound in the past month. Worsening left sided heart failure causing right sided heart failure. proBNP [id number] [place] [id number]. Labs show evidence of both cardiohepatic and cardiorenal syndrome. 2D echo on 11/03/2019 with ejection fraction of 30%. Repeat echo results pending. Pt followed by Dr. Castaneda. Consulted for f/u recommendations Continue with telemetry, cardiac diet, strict in and out, fluid restriction, IV diuretics, digoxin Consider hospice/SNF placement. Right heart failure (Secondary to Left heart failure) Treatment as discussed above Pneumonia Unknown etiology. Possible aspiration pneumonia. -RLL -History of full body generalized weakness puts him at risk for aspiration -Patient evaluated by speech therapy. No s/s of aspiration when drinking fluids with straw. Unable to complete 90ml screen secondary to increased respiratory effort. He is afebrile with regular heart rate. WBC within normal limits. Remains asymptomatic. Will not implement abx therapy at this time. Continue to monitor for s/s of infection. Generalized weakness Likely due to multiple comorbidities including worsening heart failure, underlying chronic, pancytopenia and COPD. PT and OT notes reviewed. Patient requiers help with ADLs and would benefit from acute skilled OT intervention and continued PT upon discharge. Consult discharge planning for possible placement. Plan as per above. Medical non-compliance Patient advised on compliance. Patient is stating that he is too weak to take his medication as he cannot able to ambulate. Patient has asked to be evaluated for possible SNF placement. Discharge planning has been consulted. Acute respiratory failure with hypoxia Multifactorial. Currently on 2L, sats high 90s. Continue to monitor. Plan as per above. CAD (coronary artery disease) Denies any anginal symptoms, mildly elevated troponins, likely due to demand mismatch, no acute EKG changes. Continue antiplatelets, beta-blockers, JARED, statins. Dr. Castaneda consulted COPD (chronic obstructive pulmonary disease) History of oxygen dependent COPD. Does not appear to be exacerbated. Continue supplemental, PRN DuoNebs, PRN BiPAP, LABA, LABA, ICS. Flutter valve and incentive spirometry. Continue to monitor HTN (hypertension) Normotensive. Appears euvolemic clinically. Resume home meds. Adjust meds as needed. Pancytopenia History of chronic pancytopenia. Patient has been evaluated by hematology in the past. Denies any hematemesis, hemoptysis, nosebleed, easy bleeding, hematuria, melena or hematochezia. Outpatient PCP and hematology follow-up. - Time Time Spent with patient: 15-24 minutes Medications reviewed and adjusted accordingly: Yes Anticipated Discharge Disposition: [facility] Facility Anticipated Discharge Timeframe: within 72 hours
[2019-12-26] MEDS: FLUOXETINE HCL 20 MG CAPSULE PO SCH (17:49)
[2019-12-26] MEDS ORDERED: FLUOXETINE HCL 20 MG CAPSULE PO ONE (18:00)
[2019-12-26] MEDS: ATORVASTATIN CALCIUM 40 MG TABLET PO SCH (21:56)
--- NOTE | 2019-12-26 22:43 | Progress Note ---
Provider Note Provider Note: CARDIOLOGY PROGRESS NOTE by Dr. Alicia Brizuela on 12/26/2019. SUBJECTIVE: The patient did tolerate IV fluids. Is slightly more awake but still appears to be significantly depressed. He is listless and does not want to do anything. His appetite is decreased. He has occasional episodes of shortness of breath with desaturation but oxygen saturations quickly come back up. He denies any chest pain or discomfort. He states he is cut down his smoking and smokes only a few cigarettes a week. There is no firing of his AICD. His AICD was interrogated and this showed normal function of the AICD. There is one untreated episode of nonsustained ventricular tachycardia. There is no atrial arrhythmias seen. There is no TIA CVA symptoms. Records from his facial skin cancer treatment have been reviewed. He denies any chest pain discomfort. He has no orthopnea and is lying flat on his back. There is no PND. There is no leg edema. PHYSICAL EXAMINATION: The patient is a frail build and appears to be chronically ill. In no acute distress. Selected Entries 12/26/19 12/26/19 16:44 20:00 Temperature 97.3 F Temperature Oral Source Pulse Rate 60 Respiratory 24 H 17 Rate Blood Pressure 112/57 L Blood Pressure 75 Mean O2 Sat by Pulse 94 92 Oximetry Oxygen Delivery Nasal Cannula Method ( includes room air) Oxygen Flow 4.00 Rate Oxygen Delivery Nasal Cannula Method HEAD: Is atraumatic normocephalic. EYES: Pupils are equal round regular reactive to light and accommodation. Extraocular movements are normal. There is no conjunctival pallor. There is no scleral icterus. EARS: Tympanic membranes are intact. External auditory canals are clear. NOSE: There is no deviated nasal septum. There is no inflammation of the nasal mucous membrane. MOUTH: Mucous membranes of mouth are dry tongue is still dry. THROAT: There is no redness of the oropharynx. There is no exudates. 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 There is no catie-care ecchymosis. NECK: Supple. There is no JVD present. Carotids are equal there is no bruit. There is no lymphadenopathy. There is no goiter. There is no accessory muscle respiration use. Trachea central. LUNGS: Shows diminished air entry prolonged expiration there is bibasilar rales of CHF. There is no rhonchi or wheezing. There is no chest wall tenderness on palpation. On palpation there is hyperresonance. HEART: S1-S2 is heard. There is no S3 gallop. There is no S4 gallop there is systolic murmur left sternal border and the apex there is no rub. ABDOMEN: Soft. There is no paraspinal megaly. Bowel sounds are well heard. There is no hepatosplenomegaly. EXTREMITIES: There is diminished bilateral femoral pulses with bruits. 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 He has bilateral femoral bruits present. Leg pulses are diminished. There is no there is 1+ pedal edema bilaterally. There is no DVT or cellulitis. There is no cyanosis or clubbing. VASCULAR TECH: The patient is conscious awake alert oriented x3 with no focal deficits. PSYCHIATRIC: Patient is a patient judgment insight are intact his affect is withdrawn. He appears to be depressed.. The patient's 24-hour intake is 1220 mL. The patient's 24-hour output is 2825 mL. Labs- All tests 24 hr 12/26/19 12/26/19 12/26/19 09:20 09:20 09:20 WBC 3.2 L RBC 2.72 L Hgb 9.4 L Hct 27.9 L MCV 103 H MCH 34.6 H MCHC 33.8 RDW 19.2 H Plt Count 41 L Lymph % (Auto) 8.8 L [place] % (Auto) 7.1 Eos % (Auto) 0.8 Baso % (Auto) 0.1 Absolute Neuts (auto) 2.6 Absolute Lymphs (auto) 0.3 L Absolute Monos (auto) 0.2 Absolute Eos (auto) 0.0 Absolute Basos (auto) 0.0 Seg Neutrophils % 83.2 H Sodium 135.8 L Potassium 3.3 L Chloride 104 Carbon Dioxide 25 Anion Gap 7 BUN 58 H Creatinine 1.52 H Est GFR ( Amer) 55 L Est GFR (MDRD) Non-Af 46 L Glucose 62 L POC Glucose Calcium 8.1 L Phosphorus 2.7 Magnesium 2.0 Total Bilirubin 1.5 H Direct Bilirubin 1.0 H Neonat Total Bilirubin Not Reportable Neonat Direct Bilirubin Not Reportable Neonat Indirect Bili Not Reportable AST 38 ALT 19 Alkaline Phosphatase 182 H Creatine Kinase 47 L Troponin I 0.040 NT-Pro-B Natriuret Pep 29699 H Total Protein 4.7 L Albumin 2.4 L 12/26/19 10:33 WBC RBC Hgb Hct MCV MCH MCHC RDW Plt Count Lymph % (Auto) [place] % (Auto) Eos % (Auto) Baso % (Auto) Absolute Neuts (auto) Absolute Lymphs (auto) Absolute Monos (auto) Absolute Eos (auto) Absolute Basos (auto) Seg Neutrophils % Sodium Potassium Chloride Carbon Dioxide Anion Gap BUN Creatinine Est GFR ( Amer) Est GFR (MDRD) Non-Af Glucose POC Glucose 127 H Calcium Phosphorus Magnesium Total Bilirubin Direct Bilirubin Neonat Total Bilirubin Neonat Direct Bilirubin Neonat Indirect Bili AST ALT Alkaline Phosphatase Creatine Kinase Troponin I NT-Pro-B Natriuret Pep Total Protein Albumin Chest X-Ray 12/24/19 19:50 IMPRESSION: New right basilar airspace consolidative change, suspicious for pneumonia. Head CT 12/24/19 20:48 IMPRESSION: 1. No acute intracranial findings. 2. Senescent changes with chronic microvascular ischemia and old lacunar infarcts. IMPRESSION/RECOMMENDATION: 1. Dehydration: Patient did receive IV fluids. We will have the patient drink some Ensure periodically. 2. Depression most likely the patient is depressed. We will start the patient on Prozac at a small dose of 20 mg p.o. daily. Let see if this can help the patient function better. 3. Dilated cardiomyopathy and ischemic cardiomyopathy with him moderately severely reduced LV ejection fraction. Continue current anti-his cardiomyopathy treatment. 4. COPD: At present no acute exacerbation. 5. Coronary artery disease. History of old myocardial infarction and history of coronary bypass graft surgery. No anginal symptoms. Continue anti-CAD medication, as being down now. 6. History of hypertension: Blood pressure well controlled 7. History of AICD: No firing of his AICD recently. 8. Peripheral vascular disease: History of recent past history of left femoropopliteal bypass surgery. 9. Pancytopenia: Hematology consult requested. 10. Tobacco abuse disorder.: Patient counseled the risks and the risks of tobacco abuse and the benefits of tobacco cessation. Tobacco cessation counseling given 3 minutes spent on this patient. 11. History of facial skin cancer. The patient will be requiring radiation treatment as per Dr. Domingo, radiation oncologist in [place]. INTERROGATION of the patient's AICD. Normally functioning AICD. There is one episode of untreated nonsustained ventricular tachycardia. Medications reviewed. Medical regimen and management plan discussed with attending provider on the case. 40 minutes spent as patient more than 50% time spent direct patient care. Medical decision making is of high complexity. Will follow.
[2019-12-27] MEDS: IPRATROPIUM/ALBUTEROL 0.5-2.5 MG/3 ML AMPUL NEB PRN ×2 (04:03→10:46)
[2019-12-27] MEDS: HEPARIN SOD (PORCINE) 5,000 UNIT/ML 1 ML VIAL SUBCUT SCH ×2 (06:09→13:10)
[2019-12-27] MEDS: OXYCODONE-ACETAMINOPHEN 5-325 MG TABLET PO PRN ×2 (08:00→23:26)
[2019-12-27 09:10] LABS: ANION GAP 7 (5-19); BLOOD UREA NITROGEN 59 mg/dL (7-20); CALCIUM 7.9 mg/dL (8.4-10.2); CARBON DIOXIDE 25 mmol/L (22-30); CHLORIDE 104 mmol/L (98-107); GLUCOSE 108 mg/dL (75-110); POTASSIUM 3.4 mmol/L (3.6-5.0)
[2019-12-27 09:11] LABS: HEMATOCRIT 28.8 % (37.9-51.0); HEMOGLOBIN 9.6 g/dL (13.5-17.0); MEAN CORPUSCULAR HEMOGLOBIN 34.3 pg (27.0-33.4); MEAN CORPUSCULAR HGB CONC 33.4 g/dL (32.0-36.0); MEAN CORPUSCULAR VOLUME 103 fl (80-97); RED BLOOD COUNT 2.81 10^6/uL (4.35-5.55); WHITE BLOOD COUNT 3.4 10^3/uL (4.0-10.5)
[2019-12-27 10:10] LABS: PLATELET COUNT 44 10^3/uL (150-450)
[2019-12-27] MEDS: CLOPIDOGREL BISULFATE 75 MG TABLET PO SCH (11:23)
[2019-12-27] MEDS: FAMOTIDINE 20 MG TABLET PO SCH ×2 (11:24→23:25)
[2019-12-27] MEDS: NICOTINE 14 MG/24 HR PATCH.TD24 TD SCH (11:25)
[2019-12-27] MEDS: POTASSIUM CHLORIDE 10 MEQ TABLET.ER PO SCH ×2 (11:25→17:07)
[2019-12-27] MEDS: CARVEDILOL 6.25 MG TABLET PO SCH ×2 (11:25→23:25)
[2019-12-27] MEDS: FLUOXETINE HCL 20 MG CAPSULE PO SCH (11:25)
[2019-12-27] MEDS: DIGOXIN 0.25 MG TABLET PO SCH (11:26)
[2019-12-27] MEDS: FLUTICASONE/UMECLIDIN/VILANTER 100-62.5-25 MCG/DOSE IH SCH (11:26)
[2019-12-27] MEDS: VALSARTAN 40 MG TABLET PO SCH (11:26)
[2019-12-27] MEDS: MAGNESIUM OXIDE 400 MG TABLET PO SCH ×2 (11:28→16:56)
[2019-12-27] MEDS ORDERED: DOBUTAMINE HCL/D5W 500 MG/250 ML RTUINJ IV PRN (15:00)
--- NOTE | 2019-12-27 16:23 | PDOC PROGRESS REPORT ---
Subjective Progress Note for:: 12/27/19 Subjective:: He is now on supplemental O2 and having desaturations with minimal exertion. He is feeling more SOB today. Reason For Visit: ACUTE CHF Physical Exam Vital Signs: Temp Pulse Resp BP Pulse Ox 97.4 F 63 20 116/54 L 94 12/27/19 12:00 12/27/19 14:00 12/27/19 12:00 12/27/19 11:36 12/27/19 12:00 Intake & Output 12/26/19 12/27/19 12/28/19 06:59 06:59 06:59 Intake Total 1220 620 240 Output Total 2825 1800 300 Balance -1605 -1180 -60 Weight 57.4 kg 54.7 kg General appearance: PRESENT: no acute distress, cooperative Eye exam: ABSENT: scleral icterus Mouth exam: PRESENT: moist Teeth exam: PRESENT: edentulous Neck exam: PRESENT: JVD Cardiovascular exam: PRESENT: RRR, other - AICD in left upper chest GI/Abdominal exam: PRESENT: normal bowel sounds, soft Gentrourinary exam: PRESENT: indwelling catheter Extremities exam: ABSENT: pedal edema Neurological exam: PRESENT: alert, awake, oriented to person, oriented to place, oriented to time, oriented to situation Psychiatric exam: PRESENT: flat affect Results Laboratory Results: 12/27/19 05:25 12/27/19 05:25 12/27/19 12/27/19 12/27/19 05:25 05:25 05:25 WBC 3.4 L RBC 2.81 L Hgb 9.6 L Hct 28.8 L MCV 103 H MCH 34.3 H MCHC 33.4 RDW 19.0 H Plt Count 44 L Sodium 135.6 L Potassium 3.4 L Chloride 104 Carbon Dioxide 25 Anion Gap 7 BUN 59 H Creatinine 1.33 H Est GFR ( Amer) > 60 Glucose 108 Calcium 7.9 L Magnesium 1.9 TSH 4.59 12/24/19 12/25/19 12/25/19 21:19 02:36 09:38 Creatine Kinase Troponin I 0.043 0.045 0.045 NT-Pro-B Natriuret Pep [id number] H 12/26/19 12/26/19 09:20 09:20 Creatine Kinase 47 L Troponin I 0.040 NT-Pro-B Natriuret Pep [id number] H Impressions: Chest X-Ray 12/24/19 19:50 IMPRESSION: New right basilar airspace consolidative change, suspicious for pneumonia. Head CT 12/24/19 20:48 IMPRESSION: 1. No acute intracranial findings. 2. Senescent changes with chronic microvascular ischemia and old lacunar infarcts. 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) Is this a current diagnosis for this admission?: Yes (4) Squamous cell carcinoma of skin of left cheek Is this a current diagnosis for this admission?: Yes (5) Generalized weakness Is this a current diagnosis for this admission?: Yes (6) Medical non-compliance Is this a current diagnosis for this admission?: Yes (7) Physical deconditioning Is this a current diagnosis for this admission?: Yes - Plan Summary Summary: LORIE OLIVIA is a 69 year old male with PMH of COPD, CAD, HTN, HLD, DM2, PAD s/p recent left femoropopliteal bypass, tobacco abuse, dilated cardiomyopathy and ischemic cardiomyopathy with severely reduced LV ejection fraction complicated by RV failure, cardiorenal syndrome and 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 NYHA class 4 acute on chronic right and left-sided congestive heart failure: TTE on this admission is concerning for a further reduced LV EF of <10% and AICD interrogation shows only a single episode of untreated NSVT. Mr. Olviia has severe, NYHA Class 4 heart failure and is experiencing symptoms of SOB even while at rest. He is severely limited in his ability to carry out physical activity. Symptoms have become so severe that he has essentially become bed- bound in the past month. Cardiology was consulted and felt that he did not need another ischemic work-up as he has recently undergone LHC and recommended starting inotropic support for diuresis. He has been admitted to the [facility]. - he has a dual chamber [employer] ICD which is MRI-compatible - cardiology, Dr. 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 COPD (chronic obstructive pulmonary disease): does not appear to be in acute exacerbation at this time. Continue DuoNebs, BiPAP when sleeping, LABA, ICS, flutter valve and incentive spirometry. 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 He has been evaluated by hematology during past hospitalizations here. Denies any hematemesis, hemoptysis, nosebleed, easy bleeding, hematuria, melena or hematochezia. History of Non-Adherence to Medical Therapy: He tells me that he has no transp ortation or family support in [place], which has been a barrier to receiving healthcare. Generalized Weakness: most likely due to severe congestive heart failure. - PT and OT consulted - SW consulted, will likely need SNF on discharge - fall precautions Weight loss, Failure to Thrive in Adult: most likely related to CHF, but can not rule out progression of his SCC given high risk characteristics and lack of follow up with oncology. - SECURITY SCREENER evaluation was normal this hospitalization - he will need close outpatient follow up with Oncology upon discharge for re- staging and radiation, if appropriate DVT ppx: held due to thrombocytopenia (plt <50K) Code Status: DNR/DNI - Time Time Spent with patient: 35 or more minutes Anticipated Discharge Disposition: Alf Facility Anticipated Discharge Timeframe: within 48 hours
[2019-12-27] MEDS: SACUBITRIL/VALSARTAN 24 MG/26 MG TABLET PO SCH ×2 (16:58→23:26)
--- NOTE | 2019-12-27 22:05 | Progress Note ---
Provider Note Provider Note: CARDIOLOGY PROGRESS NOTE by Dr. Alicia Brizuela on 12/27/2019. SUBJECTIVE: With the starting of Prozac the patient seems to be slightly less depressed. But again now he is short of breath with has signs of heart failure. Hence the patient is decompensated and acute on chronic systolic heart failure. There is no firing of his AICD. He has no anginal symptoms. The patient does have orthopnea but no PND or leg edema. In view of the patient's heart failure and the patient's LV ejection fraction being less than 10% which is significant deterioration since her recent prior outpatient echo will transfer the patient to [facility] and start the patient on IV dobutamine infusion. The patient is agreeable for this. PHYSICAL EXAMINATION: The patient appears to be chronically ill malnourished and emaciated. Selected Entries 12/27/19 15:35 Temperature 97.4 F Temperature Axillary Source Pulse Rate 61 Respiratory 22 H Rate Blood Pressure 121/67 Blood Pressure 85 Mean BP Location Left Arm BP Position Supine O2 Sat by Pulse 91 L Oximetry Oxygen Flow 3.00 Rate Oxygen Delivery Nasal Cannula Method HEAD: Is atraumatic normocephalic. EYES: Pupils are equal round regular reactive to light and accommodation. Extraocular movements are normal. There is no conjunctival pallor. There is no scleral icterus. EARS: Tympanic membranes are intact. External auditory canals are clear. NOSE: There is no deviated nasal septum. There is no inflammation of the nasal mucous membrane. MOUTH: Mucous membranes of mouth are dry tongue is still dry. THROAT: There is no redness of the oropharynx. There is no exudates. 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 There is no catie-care ecchymosis. NECK: Supple. There is mild JVD present. Carotids are equal there is no bruit. There is no lymphadenopathy. There is no goiter. There is no accessory muscle respiration use. Trachea central. LUNGS: Shows diminished air entry prolonged expiration there is bibasilar rales of CHF. There is no rhonchi or wheezing. There is no chest wall tenderness on palpation. On palpation there is hyperresonance. There is bibasilar rales of heart failure. HEART: S1-S2 is heard. There is no S3 gallop. There is no S4 gallop there is systolic murmur left sternal border and the apex there is no rub. ABDOMEN: Soft. There is no paraspinal megaly. Bowel sounds are well heard. There is no hepatosplenomegaly. EXTREMITIES: There is diminished bilateral femoral pulses with bruits. There is a scar in the left lower extremity from his left femoral- popliteal bypass surgery. He has bilateral femoral bruits present. Leg pulses are diminished. There is no pedal edema bilaterally. There is no DVT or cellulitis. There is no cyanosis or clubbing. 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 PSYCHIATRIC: Patient is a patient judgment insight are intact his affect is withdrawn. He appears to be less depressed. The patient's 24-hour intake 620 mL. Output is 1800 mL. Labs- All tests 24 hr 12/27/19 12/27/19 12/27/19 05:25 05:25 05:25 WBC 3.4 L RBC 2.81 L Hgb 9.6 L Hct 28.8 L MCV 103 H MCH 34.3 H MCHC 33.4 RDW 19.0 H Plt Count 44 L Sodium 135.6 L Potassium 3.4 L Chloride 104 Carbon Dioxide 25 Anion Gap 7 BUN 59 H Creatinine 1.33 H Est GFR ( Amer) > 60 Est GFR (MDRD) Non-Af 53 L Glucose 108 Calcium 7.9 L Magnesium 1.9 TSH 4.59 Chest X-Ray 12/24/19 19:50 IMPRESSION: New right basilar airspace consolidative change, suspicious for pneumonia. Head CT 12/24/19 20:48 IMPRESSION: 1. No acute intracranial findings. 2. Senescent changes with chronic microvascular ischemia and old lacunar infarcts. IMPRESSION/RECOMMENDATION: 1. Acute on chronic systolic heart failure: We will transfer the patient to [facility] and start the patient on dobutamine at 5 mcg/kg/min. Later we will institute IV Lasix. 2. Depression most likely the patient is depressed. With Prozac being started the patient feels a little better and appears to be less depressed. 3. Dilated cardiomyopathy and ischemic cardiomyopathy with him moderately severely reduced LV ejection fraction. Continue current anti-his cardiomyopathy treatment. 4. COPD: At present no acute exacerbation. 5. Coronary artery disease. History of old myocardial infarction and history of coronary bypass graft surgery. No anginal symptoms. Continue anti-CAD medication, as being down now. 6. History of hypertension: Blood pressure well controlled 7. History of AICD: No firing of his AICD recently. 8. Peripheral vascular disease: History of recent past history of left femoropopliteal bypass surgery. 9. Hypokalemia: Patient is on potassium replacement. Will hold off on IV Lasix until the potassium is corrected. 10. History of pancytopenia 11. Tobacco abuse disorder.: Patient counseled the risks and the risks of tobacco abuse and the benefits of tobacco cessation. Tobacco cessation counseling given 3 minutes spent on this patient. 12. History of facial skin cancer. The patient will be requiring radiation treatment as per Dr. Domingo, radiation oncologist in [place]. Medications reviewed. Medical regimen and management plan discussed with attending provider on the case. 40 minutes spent as patient more than 50% time spent direct patient care. Medical decision making is of high complexity. Will follow.
[2019-12-27] MEDS: ATORVASTATIN CALCIUM 40 MG TABLET PO SCH (23:25)
[2019-12-28 08:58] LABS: HEMATOCRIT 35.1 % (37.9-51.0); HEMOGLOBIN 11.5 g/dL (13.5-17.0); MEAN CORPUSCULAR HGB CONC 32.8 g/dL (32.0-36.0); MEAN CORPUSCULAR VOLUME 104 fl (80-97); RED BLOOD COUNT 3.38 10^6/uL (4.35-5.55); RED CELL DISTRIBUTION WIDTH 19.2 % (11.5-14.0); WHITE BLOOD COUNT 4.7 10^3/uL (4.0-10.5)
[2019-12-28 09:04] LABS: ALBUMIN 2.6 g/dL (3.5-5.0); ALKALINE PHOSPHATASE 233 U/L (38-126); ANION GAP 5 (5-19); ASPARTATE AMINO TRANSFERASE 55 U/L (17-59); BILIRUBIN,DIRECT 0.9 mg/dL (0.0-0.4); BILIRUBIN,TOTAL 1.4 mg/dL (0.2-1.3); BLOOD UREA NITROGEN 47 mg/dL (7-20); CALCIUM 8.3 mg/dL (8.4-10.2); CARBON DIOXIDE 27 mmol/L (22-30); CHLORIDE 106 mmol/L (98-107); GLUCOSE 106 mg/dL (75-110); PHOSPHORUS 1.6 mg/dL (2.5-4.5); POTASSIUM 4.5 mmol/L (3.6-5.0); TOTAL PROTEIN 5.2 g/dL (6.3-8.2)
[2019-12-28] MEDS: FAMOTIDINE 20 MG TABLET PO SCH ×2 (09:15→21:10)
[2019-12-28] MEDS: NICOTINE 14 MG/24 HR PATCH.TD24 TD SCH (09:15)
[2019-12-28] MEDS: DIGOXIN 0.25 MG TABLET PO SCH (09:15)
[2019-12-28] MEDS: CLOPIDOGREL BISULFATE 75 MG TABLET PO SCH (09:15)
[2019-12-28] MEDS: SACUBITRIL/VALSARTAN 24 MG/26 MG TABLET PO SCH (09:15)
[2019-12-28] MEDS: MAGNESIUM OXIDE 400 MG TABLET PO SCH ×3 (09:15→17:50)
[2019-12-28] MEDS: FLUOXETINE HCL 20 MG CAPSULE PO SCH (09:15)
[2019-12-28] MEDS: CARVEDILOL 6.25 MG TABLET PO SCH ×2 (09:16→21:10)
[2019-12-28 09:24] LABS: PLATELET COUNT 56 10^3/uL (150-450)
[2019-12-28] MEDS ORDERED: FUROSEMIDE INJ/PF 40 MG/4 ML SDV IV ONE ×2 (11:00→23:00)
[2019-12-28] MEDS: FLUTICASONE/UMECLIDIN/VILANTER 100-62.5-25 MCG/DOSE IH SCH (11:56)
[2019-12-28] MEDS ORDERED: DOBUTAMINE HCL/D5W 500 MG/250 ML RTUINJ IV PRN (13:40)
--- NOTE | 2019-12-28 14:52 | PDOC PROGRESS REPORT ---
Subjective Progress Note for:: 12/28/19 Subjective:: He feels SOB at rest, severe ROBERTS with minimal activity. He is very weak. Reason For Visit: ACUTE CHF Physical Exam Vital Signs: Temp Pulse Resp BP Pulse Ox 97.8 F 78 16 143/63 H 62 L 12/28/19 10:00 12/28/19 12:00 12/28/19 12:00 12/28/19 12:00 12/28/19 12:00 Intake & Output 12/27/19 12/28/19 12/29/19 06:59 06:59 06:59 Intake Total 620 1020 270 Output Total 1800 1325 Balance -1180 -305 270 Weight 54.7 kg 55.8 kg General appearance: PRESENT: no acute distress, cooperative, thin Eye exam: ABSENT: scleral icterus Mouth exam: PRESENT: moist Teeth exam: PRESENT: edentulous Neck exam: PRESENT: JVD Respiratory exam: PRESENT: crackles, tachypnea. ABSENT: wheezes Cardiovascular exam: PRESENT: RRR GI/Abdominal exam: PRESENT: normal bowel sounds, soft Gentrourinary exam: PRESENT: indwelling catheter Extremities exam: ABSENT: pedal edema Neurological exam: PRESENT: alert, awake Psychiatric exam: PRESENT: flat affect Skin exam: PRESENT: dry, warm Results Laboratory Results: 12/28/19 08:17 12/28/19 08:17 12/28/19 12/28/19 08:17 08:17 WBC 4.7 RBC 3.38 L Hgb 11.5 L Hct 35.1 L MCV 104 H MCH 34.0 H MCHC 32.8 RDW 19.2 H Plt Count 56 L Sodium 138.4 Potassium 4.5 Chloride 106 Carbon Dioxide 27 Anion Gap 5 BUN 47 H Creatinine 1.15 Est GFR ( Amer) > 60 Glucose 106 Calcium 8.3 L Phosphorus 1.6 L Magnesium 2.1 Total Bilirubin 1.4 H AST 55 Alkaline Phosphatase 233 H Total Protein 5.2 L Albumin 2.6 L 12/24/19 12/25/19 12/25/19 21:19 02:36 09:38 Creatine Kinase Troponin I 0.043 0.045 0.045 NT-Pro-B Natriuret Pep [id number] H 12/26/19 12/26/19 09:20 09:20 Creatine Kinase 47 L Troponin I 0.040 NT-Pro-B Natriuret Pep [id number] H Impressions: Chest X-Ray 12/24/19 19:50 IMPRESSION: New right basilar airspace consolidative change, suspicious for pneumonia. Head CT 12/24/19 20:48 IMPRESSION: 1. No acute intracranial findings. 2. Senescent changes with chronic microvascular ischemia and old lacunar infarcts. 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) Is this a current diagnosis for this admission?: Yes (4) Squamous cell carcinoma of skin of left cheek Is this a current diagnosis for this admission?: Yes (5) Generalized weakness Is this a current diagnosis for this admission?: Yes (6) Medical non-compliance Is this a current diagnosis for this admission?: Yes (7) Physical deconditioning Is this a current diagnosis for this admission?: Yes - Plan Summary Summary: LORIE OLIVIA is a 69 year old male with PMH of COPD, CAD, HTN, HLD, DM2, PAD s/p recent left femoropopliteal bypass, tobacco abuse, dilated cardiomyopathy and ischemic cardiomyopathy with severely reduced LV ejection fraction complicated by RV failure, cardiorenal syndrome and 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 NYHA class 4 acute on chronic right and left-sided congestive heart failure: TTE on this admission is concerning for a further reduced LV EF of <10% (based on my personal viewing of the TTE images - formal read is pending) and AICD interrogation shows only a single short episode of untreated NSVT. Mr. Olivia has severe, NYHA Class 4 heart failure and is experiencing symptoms of SOB even while at rest. He is severely limited in his ability to carry out physical activity. Symptoms have become so severe that he has essentially become bed- bound in the past month. Cardiology was consulted and felt that he did not need another ischemic work-up as he has recently undergone LHC and recommended starting inotropic support for diuresis. He has been admitted to the [facility]. - he has a dual chamber [employer] ICD which is MRI-compatible - cardiology, Dr. 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 Unfortunately, he has felt too weak to be able to go to his appointments regularly and he has thus not started radiation yet. COPD (chronic obstructive pulmonary disease): does not appear to be in acute exacerbation at this time. Continue DuoNebs, BiPAP when sleeping, LABA, ICS, flutter valve and incentive spirometry. 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 He has been evaluated by hematology during past hospitalizations here. Denies any hematemesis, hemoptysis, nosebleed, easy bleeding, hematuria, melena or hematochezia. History of Non-Adherence to Medical Therapy: He tells me that he has no transportation or family support in [place], which has been a barrier to receiving healthcare. Generalized Weakness: most likely due to severe congestive heart failure. - PT and OT consulted - SW consulted, will likely need SNF on discharge - fall precautions Weight loss, Failure to Thrive in Adult: most likely related to CHF, but can not rule out progression of his SCC given high risk characteristics and lack of follow up with oncology. - [facility] evaluation was normal this hospitalization - he will need close outpatient follow up with Oncology upon discharge for re- staging and radiation, if appropriate DVT ppx: held due to thrombocytopenia (plt <50K) Code Status: DNR/DNI - Time Time Spent with patient: 35 or more minutes Anticipated Discharge Disposition: Long Term Facility Anticipated Discharge Timeframe: within 48 hours
[2019-12-28] MEDS: FUROSEMIDE INJ/PF 40 MG/4 ML SDV IV SCH (17:51)
[2019-12-28] MEDS: DOBUTAMINE HCL/D5W 500 MG/250 ML RTUINJ IV PRN (19:21)
--- NOTE | 2019-12-28 20:03 | ADVANCED CARE ---
- Diagnosis (1) NYHA class 4 heart failure with reduced ejection fraction Diagnosis Current: Yes (2) Right heart failure (secondary to left heart failure) Diagnosis Current: Yes (3) Failure to thrive syndrome, adult Diagnosis Current: Yes (4) Squamous cell carcinoma of skin of left cheek Diagnosis Current: Yes (5) Generalized weakness Diagnosis Current: Yes (6) Medical non-compliance Diagnosis Current: Yes (7) Physical deconditioning Diagnosis Current: Yes Attendance: Calista Phillips (daughter, medical POA) Resuscitation Status: Do Not Resuscitate Discussion: I updated Mr. Phillips's daughter, per his wishes, on his health and hospital stay. We discussed that Mr. Phillips has end-stage, severe, NYHA Class 4 congestive heart failure. I updated his daughter on his recent weight loss, failure to thrive, inability to care for himself, and inability to engage in any meaningful physical activity due to SOB at rest and severe ROBERTS with minimal exertion. She tells me that she is aware of him having had several falls at home and that he has been declining rapidly over the last few months, but she's been living in [place], and had no idea the extent to which his disease had progressed. Care Planning Goals: Calista tells me that her dad has told her that he wants to be "DNR" and does not want extraordinary measures. Calista states that her goal is to get him to SNF for rehab, get him a little stronger, and then bring him to [place] to live with her eventually. In terms of long-term planning, we discussed the benefits of Home Hospice services, which could potentially provide Mr. Phillips with inotropic support at home for his comfort. Calista states that she is open to the idea and will think about it further depending on how the next few weeks go, and especially after seeing whether Mr. Phillips's quality of life can improve with inpatient diuresis and PT/OT. Document(s) Completed: CODE STATUS: DNR/DNI Time Spent: >30 minutes
--- NOTE | 2019-12-28 20:30 | Progress Note ---
Provider Note Provider Note: CARDIOLOGY PROGRESS NOTE by Dr. Alicia Brizuela on 12/28/2019. SUBJECTIVE: The patient states he feels better. He is more awake and alert. He still has some degree of shortness of breath. There is no PND orthopnea or leg edema. There is no anginal symptoms. There is no firing of his AICD. He is tolerating dobutamine drip without any side effects. Today he does not appear to be depressed. PHYSICAL EXAMINATION: The patient is a frail build and appears to be chronically ill. He appears to be emaciated. Selected Entries 12/28/19 12:00 Temperature Oral Source Pulse Rate 67 Blood Pressure 133/70 H O2 Sat by Pulse 93 Oximetry Oxygen Delivery Nasal Cannula Method ( includes room air) Oxygen Flow 3 Rate Percent of 92 Oxygen HEAD: Is atraumatic normocephalic. EYES: Pupils are equal round regular reactive to light and accommodation. Extraocular movements are normal. There is no conjunctival pallor. There is no scleral icterus. EARS: Tympanic membranes are intact. External auditory canals are clear. NOSE: There is no deviated nasal septum. There is no inflammation of the nasal mucous membrane. MOUTH: Mucous membranes of mouth are dry tongue is still dry. THROAT: There is no redness of the oropharynx. There is no exudates. 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 There is no catie-care ecchymosis. NECK: Supple. There is mild JVD present. Carotids are equal there is no bruit. There is no lymphadenopathy. There is no goiter. There is no accessory muscle respiration use. Trachea central. LUNGS: Shows diminished air entry prolonged expiration there is bibasilar rales of CHF. There is no rhonchi or wheezing. There is no chest wall tenderness on palpation. On palpation there is hyperresonance. There is bibasilar rales of heart failure. HEART: S1-S2 is heard. There is no S3 gallop. There is no S4 gallop there is systolic murmur left sternal border and the apex there is no rub. ABDOMEN: Soft. There is no paraspinal megaly. Bowel sounds are well heard. There is no hepatosplenom egaly. EXTREMITIES: There is diminished bilateral femoral pulses with bruits. 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 He has bilateral femoral bruits present. Leg pulses are diminished. There is no pedal edema bilaterally. There is no DVT or cellulitis. There is no cyanosis or clubbing. 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 PSYCHIATRIC: Patient is a patient judgment insight are intact his affect is withdrawn. He appears to be less depressed. Patient's 24-hour total intake is 1020 mL. Output is 1325 mL. Chest X-Ray 12/24/19 19:50 IMPRESSION: New right basilar airspace consolidative change, suspicious for pneumonia. Head CT 12/24/19 20:48 IMPRESSION: 1. No acute intracranial findings. 2. Senescent changes with chronic microvascular ischemia and old lacunar infarcts. Chest X-Ray 12/28/19 00:00 IMPRESSION: 1. New right pleural effusion since 12/24/2019, with worsening right pulmonary infiltrate, likely pneumonia. Labs- All tests 24 hr 12/28/19 12/28/19 12/28/19 08:17 08:17 20:54 WBC 4.7 RBC 3.38 L Hgb 11.5 L Hct 35.1 L MCV 104 H MCH 34.0 H MCHC 32.8 RDW 19.2 H Plt Count 56 L Sodium 138.4 Potassium 4.5 Chloride 106 Carbon Dioxide 27 Anion Gap 5 BUN 47 H Creatinine 1.15 Est GFR ( Amer) > 60 Est GFR (MDRD) Non-Af > 60 Glucose 106 Calcium 8.3 L Phosphorus 1.6 L Magnesium 2.1 Total Bilirubin 1.4 H Direct Bilirubin 0.9 H Neonat Total Bilirubin Not Reportable Neonat Direct Bilirubin Not Reportable Neonat Indirect Bili Not Reportable AST 55 ALT 30 Alkaline Phosphatase 233 H Total Protein 5.2 L Albumin 2.6 L Urine Color STRAW Urine Appearance CLEAR Urine pH 8.0 Ur Specific [place] 1.005 Urine Protein NEGATIVE Urine Glucose (UA) NEGATIVE Urine Ketones NEGATIVE Urine Blood MODERATE H Urine Nitrite NEGATIVE Urine Bilirubin NEGATIVE Urine Urobilinogen NEGATIVE Ur Leukocyte Esterase NEGATIVE Urine WBC (Auto) 1 Urine RBC (Auto) 14 U Hyaline Cast (Auto) 1 Urine Mucus (Auto) RARE Urine Ascorbic Acid NEGATIVE IMPRESSION/RECOMMENDATION: 1. Acute on chronic systolic heart failure: We will increase the patient's dobutamine drip to 7.5 mcg/kg/min. We will also start the patient on IV Lasix. 2. Depression most likely the patient is depressed. With Prozac being started the patient feels a little better and appears to be less depressed. 3. Dilated cardiomyopathy and ischemic cardiomyopathy with him moderately severely reduced LV ejection fraction. Continue current anti-his cardiomyopathy treatment. 4. COPD: At present no acute exacerbation. 5. Coronary artery disease. History of old myocardial infarction and history of coronary bypass graft surgery. No anginal symptoms. Continue anti-CAD medication, as being down now. 6. History of hypertension: Blood pressure well controlled 7. History of AICD: No firing of his AICD recently. 8. Peripheral vascular disease: History of recent past history of left femoropopliteal bypass surgery. 9. Hypokalemia: Patient is on potassium replacement. Will hold off on IV Lasix until the potassium is corrected. 10. History of pancytopenia 11. Tobacco abuse disorder.: Patient counseled the risks and the risks of tobacco abuse and the benefits of tobacco cessation. Tobacco cessation counseling given 3 minutes spent on this patient. 12. History of facial skin cancer. The patient will be requiring radiation treatment as per Dr. Domingo, radiation oncologist in [place]. Medications reviewed. Medical regimen and management plan discussed with attending provider on the case. 40 minutes spent as patient more than 50% time spent direct patient care. Medical decision making is of high complexity. Will follow.
[2019-12-28] MEDS: ATORVASTATIN CALCIUM 40 MG TABLET PO SCH (21:09)
--- NOTE | 2019-12-28 21:09 | RADIOLOGY REPORT (SQ) ---
EXAM DESCRIPTION: [facility]: XR CHEST 1 VIEW CLINICAL HISTORY: 69 years Male; new onset SOB with hypoxia; FINDINGS: Since 12/24/2019, a small right pleural effusion has developed. Infiltrates in the right lung now extending into the right upper lobe, in addition to the right middle lobe and right lower lobe as on prior study. Left lung remains clear. No pneumothorax. AICD remains in place. No mediastinal shift or widening. IMPRESSION: 1. New right pleural effusion since 12/24/2019, with worsening right pulmonary infiltrate, likely pneumonia.
[2019-12-28] MEDS: SACUBITRIL/VALSARTAN 49 MG/51 MG TABLET PO SCH (21:10)
[2019-12-28] MEDS: OXYCODONE-ACETAMINOPHEN 5-325 MG TABLET PO PRN (21:11)
[2019-12-28 21:31] LABS: APPEARANCE,URINE CLEAR; BILIRUBIN,URINE NEGATIVE (NEGATIVE); COLOR,URINE STRAW; GLUCOSE, URINE NEGATIVE (NEGATIVE); KETONES,URINE NEGATIVE (NEGATIVE); LEUKOCYTE ESTERASE,URINE NEGATIVE (NEGATIVE); NITRITE,URINE NEGATIVE (NEGATIVE); PROTEIN,URINE NEGATIVE (NEGATIVE); URINE SPECIFIC GRAVITY 1.005; UROBILINOGEN,URINE NEGATIVE mg/dL (<2.0)
[2019-12-28] MEDS ORDERED: FUROSEMIDE INJ/PF 40 MG/4 ML SDV ONE (22:34)
--- NOTE | 2019-12-29 02:11 | EKG REPORT ---
SEVERITY:- ABNORMAL ECG - SINUS RHYTHM LOW VOLTAGE IN FRONTAL LEADS LVH WITH IVCD AND SECONDARY REPOL ABNRM : Confirmed by: Alicia Brizuela MD 29-Dec-2019 02:11:14
--- NOTE | 2019-12-29 02:30 | XCELERA REPORT ---
[address] [address] Transthoracic Echocardiogram Report Name: LORIE OLIVIA Age: 69 yrs Gender: Male : 1950 Patient Status: Inpatient Patient Location: [address] [place] [address] Study Date: 12/25/2019 08:59 AM Height: 65 in Weight: 123 lb BSA: 1.6 m2 Procedure: A two-dimensional transthoracic echocardiogram with color flow and Doppler was performed. Study Quality: Good. Reason For Study: Worsening CHF History: CHF. Ordering Physician: GUALBERTO ELIAS Performed By: Desire Trevino Interpretation Summary There is AICD lead in RA and RV. The left ventricle is moderately to severly dilated. There is normal left ventricular wall thickness. LV EF is less than 15% Left ventricular systolic function is severely reduced. Doppler measurements suggest impaired left ventricular relaxation, which is associated with grade I/IV or mild diastolic dysfunction : by tissue dopplers. There is severe global hypokinesis of the left ventricle. There is no thrombus. No ASD ,VSD,or PFO seen. The right ventricle is mild to moderately dilated. The right ventricular systolic function is mild to moderately reduced. The right atrium is mild to moderately dilated. The left atrium is moderately dilated. There is no evidence of mitral valve prolapse. There is no vegetation seen on the mitral valve. There is no mitral valve stenosis. There is a severe amount of mitral regurgitation There is no aortic valvular vegetation. There is no aortic valve stenosis There is aortic sclerosis without aortic stenosis. There is no LVOT obstruction. No aortic regurgitation is present. There is no tricuspid stenosis. There is a severe amount of tricuspid regurgitation There is servere pulmonary hypertension by echo RVSP is 70 to 75 mm of Hg , with RA mean of 15 to 20. There is no pulmonic valvular stenosis. There is a mild amount of pulmonic regurgitation The aortic root is normal size. The inferior vena cava appeared dilated and decreased < 50% with respiration (RAP 15-20 mmHg) There is no pericardial effusion. There is AICD lead in RA and RV. MMode/2D Measurements & Calculations RVDd: 4.1 cm LVIDd: 6.3 cm FS: 5.7 % Ao root diam: 3.5 cm IVSd: 0.77 cm LVIDs: 6.0 cm EDV(Teich): LVPWd: 0.77 cm 202.1 ml Ao root area: ESV(Teich): 9.5 cm2 176.7 ml EF(Teich): 12.6 % EDV(MOD-sp4): SV(MOD-sp4): 186.5 ml 53.7 ml ESV(MOD-sp4): 132.9 ml EF(MOD-sp4): 28.8 % Doppler Measurements & Calculations MV E max jeanine: MV dec slope: Ao V2 max: LV V1 max P.8 cm/sec 91.3 cm/sec 0.88 mmHg MV A max jeanine: 902.8 cm/sec2 Ao max PG: LV V1 max: 76.8 cm/sec MV dec time: 0.11 sec3.3 mmHg 47.0 cm/sec MV E/A: 1.3 MR max jeanine: PI end-d jeanine: TR max jeanine: 685.1 cm/sec 177.2 cm/sec 369.2 cm/sec MR max PG: TR max P.8 mmHg 55.3 mmHg Left Ventricle The left ventricle is moderately to severly dilated. There is normal left ventricular wall thickness. LV EF is less than 15%. Left ventricular systolic function is severely reduced. Doppler measurements suggest impaired left ventricular relaxation, which is associated with grade I/IV or mild diastolic dysfunction. : by tissue dopplers. There is severe global hypokinesis of the left ventricle. There is no thrombus. No ASD ,VSD,or PFO seen. Right Ventricle The right ventricle is mild to moderately dilated. The right ventricular systolic function is mild to moderately reduced. Atria The right atrium is mild to moderately dilated. The left atrium is moderately dilated. Mitral Valve There is no evidence of mitral valve prolapse. There is no vegetation seen on the mitral valve. There is no mitral valve stenosis. There is a severe amount of mitral regurgitation. Aortic Valve There is no aortic valvular vegetation. There is no aortic valve stenosis. There is aortic sclerosis without aortic stenosis. There is no LVOT obstruction. No aortic regurgitation is present. Tricuspid Valve There is no tricuspid stenosis. There is a severe amount of tricuspid regurgitation. There is servere pulmonary hypertension by echo. RVSP is 70 to 75 mm of Hg , with RA mean of 15 to 20. Pulmonic Valve There is no pulmonic valvular stenosis. There is a mild amount of pulmonic regurgitation. Great Vessels The aortic root is normal size. The inferior vena cava appeared dilated and decreased < 50% with respiration (RAP 15-20 mmHg). Effusions There is no pericardial effusion. : GUALBERTO ELIAS Lakshmi
[2019-12-29] MEDS: MAGNESIUM OXIDE 400 MG TABLET PO SCH ×3 (08:33→17:36)
[2019-12-29] MEDS: CARVEDILOL 6.25 MG TABLET PO SCH ×2 (09:44→22:36)
[2019-12-29] MEDS: SACUBITRIL/VALSARTAN 49 MG/51 MG TABLET PO SCH ×2 (09:48→22:36)
[2019-12-29] MEDS: FUROSEMIDE INJ/PF 40 MG/4 ML SDV IV SCH ×2 (09:49→17:36)
[2019-12-29] MEDS: DIGOXIN 0.25 MG TABLET PO SCH (09:49)
[2019-12-29] MEDS: FAMOTIDINE 20 MG TABLET PO SCH ×2 (09:50→22:24)
[2019-12-29] MEDS: NICOTINE 14 MG/24 HR PATCH.TD24 TD SCH (09:50)
[2019-12-29] MEDS: CLOPIDOGREL BISULFATE 75 MG TABLET PO SCH (09:50)
[2019-12-29] MEDS: FLUOXETINE HCL 20 MG CAPSULE PO SCH (09:51)
[2019-12-29] MEDS: FLUTICASONE/UMECLIDIN/VILANTER 100-62.5-25 MCG/DOSE IH SCH (09:51)
[2019-12-29] MEDS: NITROGLYCERIN 2% OINTMENT 1 GM PACKET TP SCH ×2 (12:23→17:36)
[2019-12-29] MEDS: DOBUTAMINE HCL/D5W 500 MG/250 ML RTUINJ IV PRN (14:55)
--- NOTE | 2019-12-29 16:05 | PDOC PROGRESS REPORT ---
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 Cardiology following and has started the patient on nitroglycerin patch, unfortunately his blood pressure suffered an acute drop after this he has been persistently low. Patient intermittently somnolent. Per cardiology, unable to bolus with fluids as she will be high risk for volume overload due to extremely low EF. Already on dobutamine drip, may need to titrate this up until nitroglycerin is completely cleared the patient system. I am very concerned that the patient will not survive this hospitalization and I called his daughter, person he has named to me as his M POA. I informed her of his severe illness and high likelihood that he will succumb to his end-stage heart failure in the near future, possibly today. She is understandably upset and stated she would get on a plane and fly here to see her father hopefully before he passes away. She states that her father would not want to be sent to the ICU and would prefer to be kept co mfortable and she states that the patient has made comments to this effect in the past to her as well. Platelets higher. UA did not look infected but had some blood in it. Blood cultures negative. Patient would be a very good candidate for hospice care and I explained this to him and his daughter. Reason For Visit: ACUTE CHF Physical Exam Vital Signs: Temp Pulse Resp BP Pulse Ox 97.4 F 70 22 H 121/53 L 93 12/29/19 10:00 12/29/19 14:00 12/29/19 12:16 12/29/19 14:00 12/29/19 12:16 Intake & Output 12/28/19 12/29/19 12/30/19 06:59 06:59 06:59 Intake Total 1020 520 246 Output Total 1325 4900 Balance -305 -4380 246 Weight 55.8 kg 56.1 kg General appearance: PRESENT: no acute distress, thin Head exam: PRESENT: atraumatic, normocephalic Eye exam: PRESENT: conjunctiva pink. ABSENT: scleral icterus Ear exam: PRESENT: normal external ear exam Mouth exam: PRESENT: moist Neck exam: ABSENT: carotid bruit, JVD, lymphadenopathy, thyromegaly Respiratory exam: PRESENT: clear to auscultation khushboo. ABSENT: rales, rhonchi, wheezes Cardiovascular exam: PRESENT: RRR. ABSENT: diastolic murmur, rubs, systolic murmur Pulses: PRESENT: normal dorsalis pedis pul Vascular exam: PRESENT: normal capillary refill GI/Abdominal exam: PRESENT: normal bowel sounds, soft. ABSENT: distended, guarding, mass, organolmegaly, rebound, tenderness Rectal exam: PRESENT: deferred Extremities exam: ABSENT: pedal edema Neurological exam: PRESENT: alert, awake, oriented to person, oriented to place, oriented to time, oriented to situation Psychiatric exam: PRESENT: appropriate affect, normal mood Skin exam: PRESENT: dry, intact, warm Results Laboratory Results: 12/28/19 08:17 12/28/19 08:17 12/28/19 20:54 Urine Color STRAW Urine Appearance CLEAR Urine pH 8.0 Ur Specific [place] 1.005 Urine Protein NEGATIVE Urine Glucose (UA) NEGATIVE Urine Ketones NEGATIVE Urine Blood MODERATE H Urine Nitrite NEGATIVE Ur Leukocyte Esterase NEGATIVE Urine WBC (Auto) 1 Urine RBC (Auto) 14 12/24/19 12/25/19 12/25/19 21:19 02:36 09:38 Creatine Kinase Troponin I 0.043 0.045 0.045 NT-Pro-B Natriuret Pep [id number] H 12/26/19 12/26/19 09:20 09:20 Creatine Kinase 47 L Troponin I 0.040 NT-Pro-B Natriuret Pep [id number] H Impressions: Head CT 12/24/19 20:48 IMPRESSION: 1. No acute intracranial findings. 2. Senescent changes with chronic microvascular ischemia and old lacunar infarcts. Chest X-Ray 12/28/19 00:00 IMPRESSION: 1. New right pleural effusion since 12/24/2019, with worsening right pulmonary infiltrate, likely pneumonia. Assessment and Plan - Diagnosis (1) Acute on chronic end-stage systolic heart failure Is this a current diagnosis for this admission?: Yes Plan: EF less than 15% on echocardiogram Cardiac medications optimized as blood pressure allows Dobutamine infusion and IV Lasix started by cardiology Cardiology following: Give patient nitro paste, hypotension followed, patient transferred to ICU (2) Hypotension Qualifiers: Hypotension type: unspecified hypotension type Qualified Code(s): I95.9 - Hypotension, unspecified Is this a current diagnosis for this admission?: Yes Plan: Multifactorial: Severe acute on chronic CHF, cardiac medications Unable to give a fluid bolus due to severe CHF, high likelihood of volume overload Transferred to ICU per cardiology recommendations (3) Generalized weakness Is this a current diagnosis for this admission?: Yes Plan: Likely due to worsening heart failure complicated pneumonia and underlying chronic pancytopenia and COPD. Will consult PT OT. Consult discharge planning for possible placement. Plan as per above. (4) Medical non-compliance Is this a current diagnosis for this admission?: Yes (5) Squamous cell carcinoma of skin of left cheek Is this a current diagnosis for this admission?: Yes Plan: Oncology aware of admission, follows with Dr. Vivar, We will need to wait on addressing this problem until more stable (6) Acute respiratory failure with hypoxia Is this a current diagnosis for this admission?: Yes (7) COPD (chronic obstructive pulmonary disease) Qualifiers: COPD type: COPD with acute exacerbation Qualified Code(s): J44.1 - Chronic obstructive pulmonary disease with (acute) exacerbation Is this a current diagnosis for this admission?: Yes (8) Pancytopenia Is this a current diagnosis for this admission?: Yes - Plan Summary Summary: LORIE OLIVIA is a 69 year old male with PMH of COPD, CAD, HTN, HLD, DM2, PAD s/p recent left femoropopliteal bypass, tobacco abuse, dilated cardiomyopathy and ischemic cardiomyopathy with severely reduced LV ejection fraction complicated by RV failure, cardiorenal syndrome and 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 NYHA class 4 acute on chronic right and left-sided congestive heart failure: TTE on this admission is concerning for a further reduced LV EF of <10% (based on my personal viewing of the TTE images - formal read is pending) and AICD interrogation shows only a single short episode of untreated NSVT. Mr. Olivia has severe, NYHA Class 4 heart failure and is experiencing symptoms of SOB even while at rest. He is severely limited in his ability to carry out physical ac tivity. Symptoms have become so severe that he has essentially become bed-bound in the past month. Cardiology was consulted and felt that he did not need another ischemic work-up as he has recently undergone LHC and recommended starting inotropic support for diuresis. He has been admitted to the [facility]. - he has a dual chamber [employer] ICD which is MRI-compatible - cardiology, Dr. 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 Unfortunately, he has felt too weak to be able to go to his appointments regularly and he has thus not started radiation yet. COPD (chronic obstructive pulmonary disease): does not appear to be in acute exacerbation at this time. Continue DuoNebs, BiPAP when sleeping, LABA, ICS, flutter valve and incentive spirometry. 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 He has been evaluated by hematology during past hospitalizations here. Denies any hematemesis, hemoptysis, nosebleed, easy bleeding, hematuria, melena or hematochezia. History of Non-Adherence to Medical Therapy: He tells me that he has no transportation or family support in [place], which has been a barrier to receiving healthcare. Generalized Weakness: most likely due to severe congestive heart failure. - PT and OT consulted - SW consulted, will likely need SNF on discharge - fall precautions Weight loss, Failure to Thrive in Adult: most likely related to CHF, but can not rule out progression of his SCC given high risk characteristics and lack of follow up with oncology. - THREAD SINGER evaluation was normal this hospitalization - he will need close outpatient follow up with Oncology upon discharge for re-staging and radiation, if appropriate DVT ppx: held due to thrombocytopenia (plt <50K) Code Status: DNR/DNI - Time Time Spent with patient: 35 or more minutes Medications reviewed and adjusted accordingly: Yes Anticipated Discharge Disposition: Home with Hospice Anticipated Discharge Timeframe: within 48 hours - Inpatient Certification Based on my medical assessment, after consideration of the patient's julita rbidities, presenting symptoms, or acuity I expect that the services needed warrant INPATIENT care.: Yes I certify that my determination is in accordance with my understanding of Medicare's requirements for reasonable and necessary INPATIENT services [42 CFR 412.3e].: Yes Medical Necessity: Significant Comorbidiites Make Outpatient Treatment Too Risky, Need Close Monitoring Due to Risk of Patient Decompensation, Risk of Complication if Not Cared For in Hospital, Risk of Diagnosis Which Will Require Inpatient Eval/Care/Monitoring
[2019-12-29] MEDS ORDERED: NORMAL SALINE INJ/PF 0.9% 10 ML SDV IV PRN (18:41)
--- NOTE | 2019-12-29 18:41 | Operative Report ---
Nonrecallable Operative Report DATE OF SURGERY: 12/29/19 PREOPERATIVE DIAGNOSIS: phlebosclerosis POSTOPERATIVE DIAGNOSIS: 1. phlebosclerosis. 2. thrombosed left internal jugular vein OPERATION: 1. ultrasound guided central venous puncture. 2. Right internal jugular vein central line placement. SURGEON: NELIDA AGUILA ANESTHESIA: Local TISSUE REMOVED OR ALTERED: None COMPLICATIONS: None apparent ESTIMATED BLOOD LOSS: Minimal PROCEDURE: Drains/implants: Right internal jugular vein central line placed at 14 cm. Procedure in detail: After informed consent was obtained, the patient was laid in the Trendelenburg position in the hospital room. The ultrasound was used to visualize the left internal jugular vein. Patient had bilateral carotid endarterectomy scars, and evaluation of patency of the vein was of paramount importance. The left internal jugular vein was completely thrombosed and noncompressible. The right internal jugular vein was compressible with normal flow. In light of this, the right neck and chest were prepped and draped in a normal sterile fashion. The ultrasound was used to visualize the right internal jugular vein. The right IJ was then cannulated with the supplied access needle. Dark venous, nonpulsatile blood was returned in the syringe. The wire was inserted into the vein easily. The wire was confirmed to be within the lumen of the vein using the ultrasound device. Picture documentation was saved and placed on the chart. The catheter was then slid over the wire using a modified Seldinger technique. Once this was completed, the catheter was aspirated and flushed x3 without difficulty. It returned dark venous, nonpulsatile blood. The catheter was then sutured to the skin. A dressing was placed, and the procedure was concluded. All sponge, instrument, and needle counts were correct x2. Condition: Stable.
--- NOTE | 2019-12-29 18:47 | RADIOLOGY REPORT (SQ) ---
EXAM DESCRIPTION: CHEST SINGLE VIEW IMAGES COMPLETED DATE/TIME: 12/29/2019 6:32 pm REASON FOR STUDY: c-line COMPARISON: 12/28/2019 EXAM PARAMETERS: NUMBER OF VIEWS: One view. TECHNIQUE: Single frontal radiographic view of the chest acquired. RADIATION DOSE: NA LIMITATIONS: None. FINDINGS: LUNGS AND PLEURA: Residual infiltrate in the right lower lobe. Improved. MEDIASTINUM AND HILAR STRUCTURES: No masses. Contour normal. HEART AND VASCULAR STRUCTURES: Heart normal in size. Normal vasculature. BONES: No acute findings. HARDWARE: Pacemaker/defibrillator. Right internal jugular catheter. The tip of the catheter is in t he superior vena cava. OTHER: No other significant finding. IMPRESSION: Right internal jugular catheter as described. Improving right lower lobe pneumonia. TECHNICAL DOCUMENTATION: JOB ID: [id number] 2010 [employer]- All Rights Reserved Reading location - IP/workstation name: [email or web address]
[2019-12-29] MEDS: MILRINONE LACTATE/D5W 20 MG/100 ML RTUINJ IV PRN (20:02)
[2019-12-29] MEDS ORDERED: LEVALBUTEROL HCL NEB 0.63 MG/3 ML AMPUL NEB PRN (20:55)
[2019-12-29] MEDS ORDERED: DOPAMINE HCL/DEXTROSE 5%-WATER 800 MG/250 ML RTUINJ IV ONE (22:04)
--- NOTE | 2019-12-29 22:07 | Progress Note ---
Provider Note Provider Note: CARDIOLOGY PROGRESS NOTE by Dr. Alicia Brizuela on 12/29/2019. SUBJECTIVE: The patient appears to be intermittently somnolent and intermittently awake and alert and oriented x3. He also has intermittent shortness of breath. Not much improvement on dobutamine drip. When I placed the patient on nitrates his blood pressure did drop and the Nitropaste was wiped off hence we will start him on his lower dose. Questioning the patient's severe deterioration of LV function, severe MR and TR and severe pulmonary hypertension I have discussed with the patient placing a central line, and transferring the patient for multiple inotropic pressor agent treatment. I have discussed this in length with the patient and with the patient's daughter. The patient has trace to mild pedal edema. He has no PND orthopnea. He denies any anginal symptoms. There is no firing of his AICD. There is no arrhythmias seen on the monitor. PHYSICAL EXAMINATION: The patient is a frail build and appears to be chronically ill and emaciated. Selected Entries 12/29/19 12/29/19 12/29/19 12:16 17:00 18:45 Pulse Rate 76 Respiratory 22 H Rate Blood Pressure 119/56 L O2 Sat by Pulse 93 100 Oximetry On nasal O2 4 L/min. HEAD: Is atraumatic normocephalic. EYES: Pupils are equal round regular reactive to light and accommodation. Extraocular movements are normal. There is no conjunctival pallor. There is no scleral icterus. EARS: Tympanic membranes are intact. External auditory canals are clear. NOSE: There is no deviated nasal septum. There is no inflammation of the nasal mucous membrane. MOUTH: Mucous membranes of mouth are dry tongue is still dry. THROAT: There is no redness of the oropharynx. There is no exudates. 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 There is no catie-care ecchymosis. NECK: Supple. There is mild JVD present. Carotids are equal there is no bruit. There is no lymphadenopathy. There is no goiter. There is no accessory muscle respiration use. Trachea central. LUNGS: Shows diminished air entry prolonged expiration there is bibasilar rales of CHF. There is no rhonchi or wheezing. There is no chest wall tenderness on palpation. On palpation there is hyperresonance. There is bibasilar rales of heart failure. HEART: S1-S2 is heard. There is no S3 gallop. There is no S4 gallop there is systolic murmur left sternal border and the apex there is no rub. ABDOMEN: Soft. There is no paraspinal megaly. Bowel sounds are well heard. There is no hepatosplenomegaly. EXTREMITIES: There is diminished bilateral femoral pulses with bruits. There is a scar in the left lower extremity from his left femoral- popliteal bypass surgery. He has bilateral femoral bruits present. Leg pulses are diminished. There is no pedal edema bilaterally. There is no DVT or cellulitis. There is no cyanosis or clubbing. HEEL CEMENTER: The patient is conscious awake alert oriented x3 with no focal deficits. PSYCHIATRIC: Patient is a patient judgment insight are intact his affect is withdrawn. He appears to be less depressed. Patient's 24-hour total intake is 520 mL. Output is 4900 mL. Chest X-Ray 12/24/19 19:50 IMPRESSION: New right basilar airspace consolidative change, suspicious for pneumonia. Head CT 12/24/19 20:48 IMPRESSION: 1. No acute intracranial findings. 2. Senescent changes with chronic microvascular ischemia and old lacunar infarcts. Chest X-Ray 12/28/19 00:00 IMPRESSION: 1. New right pleural effusion since 12/24/2019, with worsening right pulmonary infiltrate, likely pneumonia. IMPRESSION/RECOMMENDATION: 1. Acute on chronic systolic heart failure: We will increase the patient's dobutamine drip to 7.5 mcg/kg/min. We will also start the patient on IV Lasix. Patient not making much improvement. I have discussed with the patient later with the patient's daughter that we should give a final try with pressors and hence after their consent was obtained a central line was placed by Dr. Pillai and the patient was transferred will be transferred to ICU. We will start the patient on milrinone and continue the patient dobutamine at a dose of 5 mcg/kg/min. Continue his Entresto. We will decrease the Nitropatch to 0.5 g per every 6 hours. If the blood pressure should drop then we will start the patient on dopamine. This is due to the fact that since the patient has severe TR and AI MR would be treated aggressively treating the patient's low output state there is a chance that we could shrink at least partially the LV size and hence reduce the TR and MR to see if there is some meaningful improvement in the patient's status. [place] all of the said the patient's prognosis very guarded guarded. He will still be a DNR. He will not be intubated and no CPR will be done. But the patient who has been intermittently somnolent somnolent when I was talking to him was fully awake alert and oriented x3 and he is agreeable to this final aggressive attempt with multiple pressors. I have discussed this with Dr. Mcgarry also. Dr. Manley's conversation with the patient's daughter and the patient occurred earlier than my conversation. Area discussion with the patient's daughter who is flying in from [place]. She will be here around 12 noon. Hence we will transfer the patient to the ICU under my care to institute multiple pressor agent treatments. 2. Severe mitral regurgitation. 3. Severe tricuspid regurgitation 4. Severe pulmonary hypertension. 5. DIlated cardiomyopathy and ischemic cardiomyopathy with severely reduced LV ejection fraction. The patient's echocardiogram obtained this admission shows significant deteriorated LV function compared to the outpatient echo done a few months ago. His ejection fraction is less than 15%. Hence to treat the above conditions including the MR TR and pulmonary hypertension we will start the patient on milrinone continue the dobutamine. Start the patient on dopamine if the blood pressure drops. Continue Entresto and the beta-abhishek. 6.. COPD: At present no acute exacerbation. Will change albuterol nebulizer treatment to Xopenex treatment 7. Coronary artery disease. History of old myocardial infarction and history of coronary bypass graft surgery. No anginal symptoms. Continue anti-CAD medication, as being down now. 8. History of hypertension: Blood pressure well controlled 9. History of AICD: No firing of his AICD recently. 10. Peripheral vascular disease: History of recent past history of left femoropopliteal bypass surgery. 11 History of pancytopenia 12. Tobacco abuse disorder. We will continue the patient on NicoDerm patch 1.3 History of facial skin cancer. The patient will be requiring radiation treatment as per Dr. Domingo, radiation oncologist in [place]. 14. DNR status.
[2019-12-29] MEDS: DOPAMINE HCL 800 MG/D5W 250 ML IV PRN (22:15)
[2019-12-29] MEDS: ATORVASTATIN CALCIUM 40 MG TABLET PO SCH (22:24)
[2019-12-30] MEDS: NITROGLYCERIN 2% OINTMENT 1 GM PACKET TP SCH ×4 (00:30→17:38)
[2019-12-30] MEDS: ONDANSETRON HCL INJ/PF 4 MG/2 ML SDV IV PRN (03:44)
[2019-12-30 04:18] LABS: ALBUMIN 2.7 g/dL (3.5-5.0); ALKALINE PHOSPHATASE 202 U/L (38-126); ANION GAP 6 (5-19); ASPARTATE AMINO TRANSFERASE 44 U/L (17-59); BILIRUBIN,DIRECT 0.7 mg/dL (0.0-0.4); BILIRUBIN,TOTAL 1.5 mg/dL (0.2-1.3); BLOOD UREA NITROGEN 67 mg/dL (7-20); CALCIUM 8.5 mg/dL (8.4-10.2); CARBON DIOXIDE 36 mmol/L (22-30); CHLORIDE 98 mmol/L (98-107); DIGOXIN 1.71 ng/mL (0.8-2.0); GLUCOSE 109 mg/dL (75-110); TOTAL PROTEIN 5.2 g/dL (6.3-8.2)
[2019-12-30 06:14] LABS: HEMATOCRIT 26.9 % (37.9-51.0); MEAN CORPUSCULAR HEMOGLOBIN 34.3 pg (27.0-33.4); MEAN CORPUSCULAR HGB CONC 34.6 g/dL (32.0-36.0); RED BLOOD COUNT 2.72 10^6/uL (4.35-5.55); RED CELL DISTRIBUTION WIDTH 18.4 % (11.5-14.0); WHITE BLOOD COUNT 5.9 10^3/uL (4.0-10.5)
[2019-12-30 06:22] LABS: HEMOGLOBIN 9.3 g/dL (13.5-17.0); MEAN CORPUSCULAR VOLUME 99 fl (80-97); PLATELET COUNT 85 10^3/uL (150-450)
[2019-12-30] MEDS: MILRINONE LACTATE/D5W 20 MG/100 ML RTUINJ IV PRN (09:01)
[2019-12-30] MEDS: MAGNESIUM OXIDE 400 MG TABLET PO SCH ×3 (09:01→17:38)
[2019-12-30] MEDS: CARVEDILOL 6.25 MG TABLET PO SCH ×2 (10:36→21:01)
[2019-12-30] MEDS: SACUBITRIL/VALSARTAN 49 MG/51 MG TABLET PO SCH ×2 (10:36→21:01)
[2019-12-30] MEDS: FLUTICASONE/UMECLIDIN/VILANTER 100-62.5-25 MCG/DOSE IH SCH (10:44)
[2019-12-30] MEDS: FAMOTIDINE 20 MG TABLET PO SCH ×2 (10:44→22:31)
[2019-12-30] MEDS: CLOPIDOGREL BISULFATE 75 MG TABLET PO SCH (10:44)
[2019-12-30] MEDS: FUROSEMIDE INJ/PF 40 MG/4 ML SDV IV SCH ×2 (10:45→17:38)
[2019-12-30] MEDS: DIGOXIN 0.25 MG TABLET PO SCH (10:45)
[2019-12-30] MEDS: NICOTINE 14 MG/24 HR PATCH.TD24 TD SCH (10:45)
[2019-12-30] MEDS: FLUOXETINE HCL 20 MG CAPSULE PO SCH (10:45)
--- NOTE | 2019-12-30 15:57 | Progress Note ---
Provider Note Provider Note: CARDIOLOGY PROGRESS NOTE by Dr. Alicia Brizuela on 12/30/2019. OBJECTIVE: The patient is more awake today. Last night he had to be started on dopamine due to drop in his blood pressure. Initially his dobutamine was discontinued but still the patient's blood pressure required 15 mg/kg/min of dopamine to keep his blood pressure up. Hence his milrinone was also discontinued. The plan now is to wean the patient off dopamine and subsequently restart the patient on dobutamine. We will also start the patient on midodrine. The patient is slightly drowsy but oriented x3. There is no focal deficits. He has no anginal symptoms. He denies any PND orthopnea or leg edema. There is no arrhythmias seen on the monitor. The patient's daughter came and I have discussed the patient's illnesses in detail and the patient's condition of his cardiomyopathy and heart failure and pulmonary hypertension. These have been discussed in detail. PHYSICAL EXAMINATION: The patient appears to be chronically ill he appears malnourished and emaciated. But in no acute distress. Selected Entries 12/30/19 12/30/19 14:00 15:11 Heart Rate ( 93 Monitors) Respiratory 27 H Rate Blood Pressure 102/56 L Blood Pressure 71 Mean O2 Sat by Pulse 93 95 Oximetry Nasal cannula 3 L/min. HEAD: Is atraumatic normocephalic. EYES: Pupils are equal round regular reactive to light and accommodation. Extraocular movements are normal. There is no conjunctival pallor. There is no scleral icterus. EARS: Tympanic membranes are intact. External auditory canals are clear. NOSE: There is no deviated nasal septum. There is no inflammation of the nasal mucous membrane. MOUTH: Mucous membranes of mouth are dry tongue is still dry. THROAT: There is no redness of the oropharynx. There is no exudates. 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 There is no catie-care ecchymosis. NECK: Supple. There is mild JVD present. Carotids are equal there is no bruit. There is no lymphadenopathy. There is no goiter. There is no accessory muscle respiration use. Trachea central. LUNGS: Shows diminished air entry prolonged expiration there is bibasilar rales of CHF. There is no rhonchi or wheezing. There is no chest wall tenderness on palpation. On palpation there is hyperresonance. There is bibasilar rales of heart failure. HEART: S1-S2 is heard. There is no S3 gallop. There is no S4 gallop there is systolic murmur left sternal border and the apex there is no rub. ABDOMEN: Soft. There is no paraspinal megaly. Bowel sounds are well heard. There is no hepatosplenomegaly. EXTREMITIES: There is diminished bilateral femoral pulses with bruits. There is a scar in the left lower extremity from his left femoral- popliteal bypass surgery. He has bilateral femoral bruits present. Leg pulses are diminished. There is no pedal edema bilaterally. There is no DVT or cellulitis. There is no cyanosis or clubbing. 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 PSYCHIATRIC: Patient is a patient judgment insight are intact his affect is normal, The patient's 24-hour intake is 352 mL. The patient's 24-hour output is 980 mL. Labs- All tests 24 hr 12/30/19 12/30/19 12/30/19 03:40 03:40 05:15 WBC Cancelled 5.9 RBC Cancelled 2.72 L Hgb Cancelled 9.3 L D Hct Cancelled 26.9 L MCV Cancelled 99 H D MCH Cancelled 34.3 H MCHC Cancelled 34.6 RDW Cancelled 18.4 H Plt Count Cancelled 85 L Platelet Estimate Cancelled Sodium 140.2 Potassium 4.0 Chloride 98 Carbon Dioxide 36 H Anion Gap 6 BUN 67 H Creatinine 1.21 Est GFR ( Amer) > 60 Est GFR (MDRD) Non-Af > 60 Glucose 109 POC Glucose Calcium 8.5 Total Bilirubin 1.5 H Direct Bilirubin 0.7 H Neonat Total Bilirubin Not Reportable Neonat Direct Bilirubin Not Reportable Neonat Indirect Bili Not Reportable AST 44 ALT 28 Alkaline Phosphatase 202 H Total Protein 5.2 L Albumin 2.7 L Digoxin 1.71 Slides for Path Review Cancelled 12/30/19 09:49 WBC RBC Hgb Hct MCV MCH MCHC RDW Plt Count Platelet Estimate Sodium Potassium Chloride Carbon Dioxide Anion Gap BUN Creatinine Est GFR ( Amer) Est GFR (MDRD) Non-Af Glucose POC Glucose 133 H Calcium Total Bilirubin Direct Bilirubin Neonat Total Bilirubin Neonat Direct Bilirubin Neonat Indirect Bili AST ALT Alkaline Phosphatase Total Protein Albumin Digoxin Slides for Path Review Chest X-Ray 12/24/19 19:50 IMPRESSION: New right basilar airspace consolidative change, suspicious for pneumonia. Head CT 12/24/19 20:48 IMPRESSION: 1. No acute intracranial findings. 2. Senescent changes with chronic microvascular ischemia and old lacunar infarcts. Chest X-Ray 12/28/19 00:00 IMPRESSION: 1. New right pleural effusion since 12/24/2019, with worsening right pulmonary infiltrate, likely pneumonia. Chest X-Ray 12/29/19 00:00 IMPRESSION: Right internal jugular catheter as described. Improving right lower lobe pneumonia. IMPRESSION/RECOMMENDATION: 1. 1. Acute on chronic systolic heart failure. Note that the patient blood pressure dropped and hence he had to be started on dopamine last night. He is on 15 mics of dopamine. NC his milrinone was discontinued and also his dobutamine. To see if we can wean him off dopamine. Subsequently will start him on Middaugh drain and then start the patient on dobutamine since the patient is now good response with milrinone. In spite of this the patient's urine output is reasonable although as not as much as previous days. 2. Severe mitral regurgitation. 3. Severe tricuspid regurgitation 4. Severe pulmonary hypertension. 5. DIlated cardiomyopathy and ischemic cardiomyopathy with severely reduced LV ejection fraction. The patient's echocardiogram obtained this admission shows significant deteriorated LV function compared to the outpatient echo done a few months ago. His ejection fraction is less than 15%. Hence to treat the above conditions including the MR TR and pulmonary hypertension we will start the patient on milrinone continue the dobutamine. Start the patient on dopamine if the blood pressure drops. Continue Entresto and the beta-abhishek. 6.. COPD: At present no acute exacerbation. Will change albuterol nebulizer treatment to Xopenex treatment 7. Coronary artery disease. History of old myocardial infarction and history of coronary bypass graft surgery. No anginal symptoms. Continue anti-CAD medication, as being down now. 8. History of hypertension: Blood pressure well controlled 9. History of AICD: No firing of his AICD recently. 10. Peripheral vascular disease: History of recent past history of left femoropopliteal bypass surgery. 11 History of pancytopenia 12. Tobacco abuse disorder. We will continue the patient on NicoDerm patch 1.3 History of facial skin cancer. The patient will be requiring radiation treatment as per Dr. Domingo, radiation oncologist in [place]. 14. DNR status. Had a lengthy discussion with the patient's daughter who Flew in from [place]. I have explained to them that the patient's illness is critical and pretty serious but the patient is definitely not terminal at this point. The plan is to tune up the patient's heart failure and see if he can be transferred to a senior care facility since I suspect that the patient does not take his medications regularly. Also the other possibility is if they do not the patient does improve S2 have him go to [place] to live with his daughter. But this will take time. All questions answered. Medications reviewed medications adjusted medical decision making is of high complexity. 50 minutes spent as patient more than 50% of time spent in direct patient care. Will follow.
[2019-12-30] MEDS: DOPAMINE HCL 800 MG/D5W 250 ML IV PRN (20:56)
[2019-12-30] MEDS: ATORVASTATIN CALCIUM 40 MG TABLET PO SCH (22:31)
[2019-12-31] MEDS: NITROGLYCERIN 2% OINTMENT 1 GM PACKET TP SCH ×4 (00:02→17:53)
[2019-12-31] MEDS: ONDANSETRON HCL INJ/PF 4 MG/2 ML SDV IV PRN (02:03)
[2019-12-31 04:26] LABS: ALBUMIN 2.4 g/dL (3.5-5.0); ALKALINE PHOSPHATASE 180 U/L (38-126); ANION GAP 5 (5-19); ASPARTATE AMINO TRANSFERASE 45 U/L (17-59); BILIRUBIN,DIRECT 0.7 mg/dL (0.0-0.4); BILIRUBIN,TOTAL 1.1 mg/dL (0.2-1.3); BLOOD UREA NITROGEN 80 mg/dL (7-20); CALCIUM 8.2 mg/dL (8.4-10.2); CARBON DIOXIDE 35 mmol/L (22-30); CHLORIDE 98 mmol/L (98-107); GLUCOSE 115 mg/dL (75-110); POTASSIUM 4.4 mmol/L (3.6-5.0); TOTAL PROTEIN 4.6 g/dL (6.3-8.2)
[2019-12-31 05:04] LABS: ABSOLUTE LYMPHOCYTES (AUTO) 0.5 10^3/uL (0.5-4.7); ABSOLUTE MONOCYTES (AUTO) 0.5 10^3/uL (0.1-1.4); ABSOLUTE NEUT (AUTO) 4.5 10^3/uL (1.7-8.2); BASOPHILS % (AUTO) 0.3 % (0-2); EOSINOPHILS % (AUTO) 0.5 % (0-6); HEMATOCRIT 18.8 % (37.9-51.0); LYMPHOCYTES % (AUTO) 8.3 % (13-45); MEAN CORPUSCULAR HEMOGLOBIN 33.9 pg (27.0-33.4); MEAN CORPUSCULAR HGB CONC 33.6 g/dL (32.0-36.0); MEAN CORPUSCULAR VOLUME 101 fl (80-97); MONOCYTES % (AUTO) 8.7 % (3-13); RED BLOOD COUNT 1.86 10^6/uL (4.35-5.55); RED CELL DISTRIBUTION WIDTH 18.3 % (11.5-14.0); SEGMENTED NEUTROPHILS % (AUTO) 82.2 % (42-78); TOTAL CELLS COUNTED % (AUTO) 100 %; WHITE BLOOD COUNT 5.5 10^3/uL (4.0-10.5)
[2019-12-31 05:24] LABS: HEMOGLOBIN 6.3 g/dL (13.5-17.0); PLATELET COUNT 87 10^3/uL (150-450)
[2019-12-31] MEDS: FUROSEMIDE INJ/PF 20 MG/2 ML SDV IV PRN ×2 (08:55→12:45)
[2019-12-31] MEDS: SACUBITRIL/VALSARTAN 49 MG/51 MG TABLET PO SCH ×2 (09:03→22:56)
[2019-12-31] MEDS: CARVEDILOL 6.25 MG TABLET PO SCH ×2 (09:03→22:56)
[2019-12-31] MEDS: FUROSEMIDE INJ/PF 40 MG/4 ML SDV IV SCH ×2 (10:13→18:15)
[2019-12-31] MEDS: DIGOXIN 0.25 MG TABLET PO SCH (10:19)
[2019-12-31] MEDS: NICOTINE 14 MG/24 HR PATCH.TD24 TD SCH (10:19)
[2019-12-31] MEDS: MAGNESIUM OXIDE 400 MG TABLET PO SCH ×3 (10:20→18:15)
[2019-12-31] MEDS: FAMOTIDINE 20 MG TABLET PO SCH ×2 (10:20→22:55)
[2019-12-31] MEDS: FLUOXETINE HCL 20 MG CAPSULE PO SCH (10:20)
[2019-12-31] MEDS: FLUTICASONE/UMECLIDIN/VILANTER 100-62.5-25 MCG/DOSE IH SCH (10:21)
[2019-12-31] MEDS: MIDODRINE HCL 5 MG TABLET PO SCH ×2 (14:39→18:15)
--- NOTE | 2019-12-31 16:30 | Progress Note ---
Provider Note Provider Note: CARDIOLOGY PROGRESS NOTE by Dr. Alicia Brizuela on 12/31/2019. SUBJECTIVE: The patient denies any chest pain or discomfort. He denies any abdominal pain he had a bowel movement which she does not have the look of a GI bleed or bloody stools. His hemoglobin is dropped to 6.3. He will be getting blood transfusions. His shortness of breath is stable. He has no PND orthopnea.. There is no anginal symptoms. He is awake although slightly drowsy. There is no arrhythmias seen and no firing of his AICD. The patient became hypotensive with milrinone and stress will be stopped. The plan is to wean the patient off dopamine and start the patient on midodrine and restart the patient's dobutamine at 5 mcg/kg/min. We will also try to continue the patient's Coreg and Entresto as per his blood pressure status. PHYSICAL EXAMINATION: The patient is a frail build. Appears to be chronically ill and emaciated. But in no acute distress. Selected Entries 12/31/19 12/31/19 10:00 10:12 Temperature 98.7 F Pulse Rate 77 Respiratory 22 H Rate Blood Pressure 105/51 L Blood Pressure 66 Mean O2 Sat by Pulse 100 Oximetry HEAD: Is atraumatic normocephalic. EYES: Pupils are equal round regular reactive to light and accommodation. Extraocular movements are normal. There is no conjunctival pallor. There is no scleral icterus. EARS: Tympanic membranes are intact. External auditory canals are clear. NOSE: There is no deviated nasal septum. There is no inflammation of the nasal mucous membrane. MOUTH: Mucous membranes of mouth are dry tongue is still dry. THROAT: There is no redness of the oropharynx. There is no exudates. 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 There is no catie-care ecchymosis. NECK: Supple. There is mild JVD present. Carotids are equal there is no bruit. There is no lymphadenopathy. There is no goiter. There is no accessory muscle respiration use. Trachea central. LUNGS: Shows diminished air entry prolonged expiration there is bibasilar rales of CHF. There is no rhonchi or wheezing. There is no chest wall tenderness on palpation. On palpation there is hyperresonance. There is bibasilar rales of heart failure. HEART: S1-S2 is heard. There is no S3 gallop. There is no S4 gallop there is systolic murmur left sternal border and the apex there is no rub. ABDOMEN: Soft. There is no paraspinal megaly. Bowel sounds are well heard. There is no hepatosplenomegaly. EXTREMITIES: There is diminished bilateral femoral pulses with bruits. There is a scar in the left lower extremity from his left femoral- popliteal bypass surgery. He has bilateral femoral bruits present. Leg pulses are diminished. There is no pedal edema bilaterally. There is no DVT or cellulitis. There is no cyanosis or clubbing. 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 PSYCHIATRIC: Patient is a patient judgment insight are intact his affect is normal, Labs- All tests 24 hr 12/31/19 12/31/19 12/31/19 03:45 03:45 04:40 WBC Cancelled 5.5 RBC Cancelled 1.86 L Hgb Cancelled 6.3 L D Hct Cancelled 18.8 L MCV Cancelled 101 H MCH Cancelled 33.9 H MCHC Cancelled 33.6 RDW Cancelled 18.3 H Plt Count Cancelled 87 L Lymph % (Auto) 8.3 L [place] % (Auto) 8.7 Eos % (Auto) 0.5 Baso % (Auto) 0.3 Absolute Neuts (auto) 4.5 Absolute Lymphs (auto) 0.5 Absolute Monos (auto) 0.5 Absolute Eos (auto) 0.0 Absolute Basos (auto) 0.0 Seg Neutrophils % 82.2 H Platelet Estimate Cancelled Sodium 138.2 Potassium 4.4 Chloride 98 Carbon Dioxide 35 H Anion Gap 5 BUN 80 H Creatinine 1.43 H Est GFR ( Amer) > 60 Est GFR (MDRD) Non-Af 49 L Glucose 115 H Calcium 8.2 L Total Bilirubin 1.1 Direct Bilirubin 0.7 H Neonat Total Bilirubin Not Reportable Neonat Direct Bilirubin Not Reportable Neonat Indirect Bili Not Reportable AST 45 ALT 29 Alkaline Phosphatase 180 H Total Protein 4.6 L Albumin 2.4 L Stool Occult Blood Slides for Path Review Cancelled Blood Type Blood Type Confirm Antibody Screen Crossmatch 12/31/19 12/31/19 12/31/19 06:03 06:48 21:44 WBC RBC Hgb Hct MCV MCH MCHC RDW Plt Count Lymph % (Auto) [place] % (Auto) Eos % (Auto) Baso % (Auto) Absolute Neuts (auto) Absolute Lymphs (auto) Absolute Monos (auto) Absolute Eos (auto) Absolute Basos (auto) Seg Neutrophils % Platelet Estimate Sodium Potassium Chloride Carbon Dioxide Anion Gap BUN Creatinine Est GFR ( Amer) Est GFR (MDRD) Non-Af Glucose Calcium Total Bilirubin Direct Bilirubin Neonat Total Bilirubin Neonat Direct Bilirubin Neonat Indirect Bili AST ALT Alkaline Phosphatase Total Protein Albumin Stool Occult Blood POSITIVE Slides for Path Review Blood Type B POSITIVE Blood Type Confirm B POSITIVE Antibody Screen NEGATIVE Crossmatch See Detail Chest X-Ray 12/24/19 19:50 IMPRESSION: New right basilar airspace consolidative change, suspicious for pneumonia. Head CT 12/24/19 20:48 IMPRESSION: 1. No acute intracranial findings. 2. Senescent changes with chronic microvascular ischemia and old lacunar infarcts. Chest X-Ray 12/28/19 00:00 IMPRESSION: 1. New right pleural effusion since 12/24/2019, with worsening right pulmonary infiltrate, likely pneumonia. Chest X-Ray 12/29/19 00:00 IMPRESSION: Right internal jugular catheter as described. Improving right lower lobe pneumonia. IMPRESSION/RECOMMENDATION: 1. 1. Acute on chronic systolic heart failure. His milrinone was discontinued due to hypotension. The patient has been weaned off the dopamine and now we will place the patient back on dobutamine at 5 mcg/kg/min. There is also start the patient on midodrine. We will continue Entresto and beta-abhishek if blood pressure permits. 2. Acute anemia: There is no definite evidence of GI bleed. Whether this is dilution of the sample obtained versus other causes of anemia, in view of the patient's cardiac condition will transfuse the patient with 2 units of packed RBCs to get his hemoglobin up and about 10. Will get stool for Hemoccult. 3. Severe mitral regurgitation. 4. Severe tricuspid regurgitation 5. Severe pulmonary hypertension. 6. DIlated cardiomyopathy and ischemic cardiomyopathy with severely reduced LV ejection fraction. Please refer to treatment outlined above. 7.. COPD: At present no acute exacerbation. Will change albuterol nebulizer treatment to Xopenex treatment 8. Coronary artery disease. History of old myocardial infarction and history of coronary bypass graft surgery. No anginal symptoms. Continue anti-CAD medication, as being down now. 9. History of hypertension: Blood pressure well controlled 10. History of AICD: No firing of his AICD recently. 11. Peripheral vascular disease: History of recent past history of left femoropopliteal bypass surgery. 12 History of pancytopenia 13. Tobacco abuse disorder. We will continue the patient on NicoDerm patch 14. History of facial skin cancer. The patient will be requiring radiation treatment as per Dr. Domingo, radiation oncologist in [place]. 15. DNR status. Medication reviewed medications adjusted. Medical decision making is of high complexity. 60 minutes spent as patient more than 50% time spent in direct patient care. The patient is inotrope has been adjusted by me. Will talk to the patient's daughter on the phone later on. Will follow.
[2019-12-31] MEDS: ATORVASTATIN CALCIUM 40 MG TABLET PO SCH (22:55)
[2020-01-01] MEDS: NITROGLYCERIN 2% OINTMENT 1 GM PACKET TP SCH ×4 (01:10→17:28)
[2020-01-01 04:35] LABS: HEMATOCRIT 27.4 % (37.9-51.0); MEAN CORPUSCULAR HEMOGLOBIN 32.6 pg (27.0-33.4); MEAN CORPUSCULAR HGB CONC 34.9 g/dL (32.0-36.0); RED BLOOD COUNT 2.94 10^6/uL (4.35-5.55); WHITE BLOOD COUNT 5.3 10^3/uL (4.0-10.5)
[2020-01-01 04:46] LABS: ALBUMIN 2.3 g/dL (3.5-5.0); ALKALINE PHOSPHATASE 264 U/L (38-126); ASPARTATE AMINO TRANSFERASE 185 U/L (17-59); BILIRUBIN,DIRECT 0.7 mg/dL (0.0-0.4); BILIRUBIN,TOTAL 1.1 mg/dL (0.2-1.3); BLOOD UREA NITROGEN 87 mg/dL (7-20); CALCIUM 8.1 mg/dL (8.4-10.2); GLUCOSE 99 mg/dL (75-110); POTASSIUM 4.2 mmol/L (3.6-5.0); TOTAL PROTEIN 4.5 g/dL (6.3-8.2)
[2020-01-01 04:51] LABS: CARBON DIOXIDE 35 mmol/L (22-30); CHLORIDE 98 mmol/L (98-107)
[2020-01-01 05:01] LABS: ANION GAP 4 (5-19)
[2020-01-01 05:08] LABS: HEMOGLOBIN 9.6 g/dL (13.5-17.0)
[2020-01-01 05:09] LABS: MEAN CORPUSCULAR VOLUME 93 fl (80-97); PLATELET COUNT 74 10^3/uL (150-450)
[2020-01-01] MEDS: FUROSEMIDE INJ/PF 40 MG/4 ML SDV IV SCH ×2 (09:51→17:27)
[2020-01-01] MEDS: MAGNESIUM OXIDE 400 MG TABLET PO SCH ×3 (09:51→17:27)
[2020-01-01] MEDS: DIGOXIN 0.25 MG TABLET PO SCH (09:51)
[2020-01-01] MEDS: FAMOTIDINE INJ/PF 20 MG/2 ML SDV IV SCH ×2 (09:51→21:36)
[2020-01-01] MEDS: MIDODRINE HCL 5 MG TABLET PO SCH ×3 (09:52→17:27)
[2020-01-01] MEDS: FLUOXETINE HCL 20 MG CAPSULE PO SCH (09:52)
[2020-01-01] MEDS: ONDANSETRON HCL INJ/PF 4 MG/2 ML SDV IV PRN (09:54)
[2020-01-01] MEDS: CARVEDILOL 6.25 MG TABLET PO SCH ×2 (11:14→21:34)
[2020-01-01] MEDS: NICOTINE 14 MG/24 HR PATCH.TD24 TD SCH (11:14)
[2020-01-01] MEDS: SACUBITRIL/VALSARTAN 49 MG/51 MG TABLET PO SCH ×2 (11:14→21:34)
[2020-01-01] MEDS: FLUTICASONE/UMECLIDIN/VILANTER 100-62.5-25 MCG/DOSE IH SCH (11:15)
[2020-01-01] MEDS ORDERED: INFLUENZA QUAD (6MOS+) 2020-21 VAC 0.5 ML SYR IM ONE (13:00)
[2020-01-01] MEDS: ATORVASTATIN CALCIUM 40 MG TABLET PO SCH (21:34)
--- NOTE | 2020-01-01 22:02 | Progress Note ---
Provider Note Provider Note: CARDIOLOGY PROGRESS NOTE by Dr. Alicia Brizuela on 01/01/2020. SUBJECTIVE: The patient is a bowel movement which is black tarry stool which is possibly Hemoccult. Hence the patient had GI bleed. He denies any abdominal pain nausea vomiting. His appetite is decreased. He has no chest pain he has no shortness of breath he has no PND orthopnea. He is off the pressors and only on dobutamine. We have been able to restart the patient's Entresto and Coreg. He is also on midodrine to bring his blood pressure up. There is no atrioventricular is missing on the monitor. There is no firing of his AICD. PHYSICAL EXAMINATION: The patient appears to be chronically ill and malnourished. He is emaciated. Selected Entries 01/01/20 01/01/20 14:58 15:00 Heart Rate ( 63 Monitors) Respiratory 21 H Rate Blood Pressure 112/67 Blood Pressure 82 Mean O2 Sat by Pulse 95 Oximetry HEAD: Is atraumatic normocephalic. EYES: Pupils are equal round regular reactive to light and accommodation. Extraocular movements are normal. There is no conjunctival pallor. There is no scleral icterus. EARS: Tympanic membranes are intact. External auditory canals are clear. NOSE: There is no deviated nasal septum. There is no inflammation of the nasal mucous membrane. MOUTH: Mucous membranes of mouth are dry tongue is still dry. THROAT: There is no redness of the oropharynx. There is no exudates. 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 There is no catie-care ecchymosis. NECK: Supple. There is mild JVD present. Carotids are equal there is no bruit. There is no lymphadenopathy. There is no goiter. There is no accessory muscle respiration use. Trachea central. LUNGS: Shows diminished air entry prolonged expiration there is bibasilar rales of CHF. There is no rhonchi or wheezing. There is no chest wall tenderness on palpation. On palpation there is hyperresonance. There is bibasilar rales of heart failure. HEART: S1-S2 is heard. There is no S3 gallop. There is no S4 gallop there is systolic murmur left sternal border and the apex there is no rub. ABDOMEN: Soft. There is no paraspinal megaly. Bowel sounds are well heard. There is no hepatosplenomegaly. EXTREMITIES: There is diminished bilateral femoral pulses with bruits. There is a scar in the left lower extremity from his left femoral- popliteal bypass surgery. He has bilateral femoral bruits present. Leg pulses are diminished. There is no pedal edema bilaterally. There is no DVT or cellulitis. There is no cyanosis or clubbing. [employer]IN[employer] CONSULTANT: The patient is conscious awake alert oriented x3 with no focal deficits. PSYCHIATRIC: Patient is a patie nt judgment insight are intact his affect is normal, Chest X-Ray 12/24/19 19:50 IMPRESSION: New right basilar airspace consolidative change, suspicious for pneumonia. Head CT 12/24/19 20:48 IMPRESSION: 1. No acute intracranial findings. 2. Senescent changes with chronic microvascular ischemia and old lacunar infarcts. Chest X-Ray 12/28/19 00:00 IMPRESSION: 1. New right pleural effusion since 12/24/2019, with worsening right pulmonary infiltrate, likely pneumonia. Chest X-Ray 12/29/19 00:00 IMPRESSION: Right internal jugular catheter as described. Improving right lower lobe pneumonia. Labs- Entire Visit 12/24/19 12/24/19 12/24/19 21:19 21:19 21:19 WBC 5.7 RBC 3.66 L Hgb 12.5 L Hct 38.3 MCV 105 H MCH 34.2 H MCHC 32.6 RDW 19.4 H Plt Count 45 L Lymph % (Auto) 5.9 L Hoke % (Auto) 6.2 Eos % (Auto) 0.0 Baso % (Auto) 0.4 Absolute Neuts (auto) 4.9 Absolute Lymphs (auto) 0.3 L Absolute Monos (auto) 0.4 Absolute Eos (auto) 0.0 Absolute Basos (auto) 0.0 Seg Neutrophils % 87.5 H Platelet Estimate PT 18.6 H INR 1.54 APTT 36.0 H Sodium 136.2 L Potassium 4.3 Chloride 105 Carbon Dioxide 21 L Anion Gap 10 BUN 68 H Creatinine 1.60 H Est GFR ( Amer) 52 L Est GFR (MDRD) Non-Af 43 L Glucose 92 POC Glucose Calcium 9.0 Phosphorus 4.0 Magnesium 2.5 H Total Bilirubin 2.4 H Direct Bilirubin 1.4 H Neonat Total Bilirubin Not Reportable Neonat Direct Bilirubin Not Reportable Neonat Indirect Bili Not Reportable AST 45 ALT 23 Alkaline Phosphatase 185 H Creatine Kinase Troponin I NT-Pro-B Natriuret Pep Total Protein 6.0 L Albumin 3.3 L TSH Free T4 Urine Color Urine Appearance Urine pH Ur Specific Arnot Urine Protein Urine Glucose (UA) Urine Ketones Urine Blood Urine Nitrite Urine Nitrite (Reflex) Urine Bilirubin Urine Urobilinogen Ur Leukocyte Esterase Leukocyte Esterase Rfl Urine WBC (Auto) Urine RBC (Auto) U Hyaline Cast (Auto) Squamous Epi Cells Auto Urine Mucus (Auto) Urine Ascorbic Acid Stool Occult Blood Digoxin < 0.40 L Slides for Path Review Blood Type Blood Type Confirm Antibody Screen Crossmatch 12/24/19 12/25/19 12/25/19 21:19 02:36 02:36 WBC 6.2 RBC 3.16 L Hgb 10.9 L Hct 32.5 L MCV 103 H MCH 34.4 H MCHC 33.4 RDW 19.2 H Plt Count 43 L Lymph % (Auto) Hoke % (Auto) Eos % (Auto) Baso % (Auto) Absolute Neuts (auto) Absolute Lymphs (auto) Absolute Monos (auto) Absolute Eos (auto) Absolute Basos (auto) Seg Neutrophils % Platelet Estimate PT INR APTT Sodium 137.8 Potassium 4.1 Chloride 107 Carbon Dioxide 20 L Anion Gap 11 BUN 69 H Creatinine 1.60 H Est GFR ( Amer) 52 L Est GFR (MDRD) Non-Af 43 L Glucose 98 POC Glucose Calcium 9.0 Phosphorus 3.9 Magnesium 2.4 H Total Bilirubin 2.3 H Direct Bilirubin 1.4 H Neonat Total Bilirubin Not Reportable Neonat Direct Bilirubin Not Reportable Neonat Indirect Bili Not Reportable AST 42 ALT 22 Alkaline Phosphatase 185 H Creatine Kinase Troponin I 0.043 NT-Pro-B Natriuret Pep 299228 H Total Protein 5.5 L Albumin 3.0 L TSH Free T4 Urine Color Urine Appearance Urine pH Ur Specific Arnot Urine Protein Urine Glucose (UA) Urine Ketones Urine Blood Urine Nitrite Urine Nitrite (Reflex) Urine Bilirubin Urine Urobilinogen Ur Leukocyte Esterase Leukocyte Esterase Rfl Urine WBC (Auto) Urine RBC (Auto) U Hyaline Cast (Auto) Squamous Epi Cells Auto Urine Mucus (Auto) Urine Ascorbic Acid Stool Occult Blood Digoxin Slides for Path Review Blood Type Blood Type Confirm Antibody Screen Crossmatch 12/25/19 12/25/19 12/25/19 02:36 02:36 04:50 WBC RBC Hgb Hct MCV MCH MCHC RDW Plt Count Lymph % (Auto) Hoke % (Auto) Eos % (Auto) Baso % (Auto) Absolute Neuts (auto) Absolute Lymphs (auto) Absolute Monos (auto) Absolute Eos (auto) Absolute Basos (auto) Seg Neutrophils % Platelet Estimate PT INR APTT Sodium Potassium Chloride Carbon Dioxide Anion Gap BUN Creatinine Est GFR ( Amer) Est GFR (MDRD) Non-Af Glucose POC Glucose Calcium Phosphorus Magnesium Total Bilirubin Direct Bilirubin Neonat Total Bilirubin Neonat Direct Bilirubin Neonat Indirect Bili AST ALT Alkaline Phosphatase Creatine Kinase Troponin I 0.045 NT-Pro-B Natriuret Pep Total Protein Albumin TSH 5.46 H Free T4 0.99 Urine Color STRAW Urine Appearance CLEAR Urine pH 5.0 Ur Specific Arnot 1.006 Urine Protein NEGATIVE Urine Glucose (UA) NEGATIVE Urine Ketones NEGATIVE Urine Blood SMALL H Urine Nitrite Urine Nitrite (Reflex) NEGATIVE Urine Bilirubin NEGATIVE Urine Urobilinogen NEGATIVE Ur Leukocyte Esterase Leukocyte Esterase Rfl NEGATIVE Urine WBC (Auto) Urine RBC (Auto) 0 U Hyaline Cast (Auto) 1 Squamous Epi Cells Auto <1 Urine Mucus (Auto) RARE Urine Ascorbic Acid NEGATIVE Stool Occult Blood Digoxin Slides for Path Review Blood Type Blood Type Confirm Antibody Screen Crossmatch 12/25/19 12/26/19 12/26/19 09:38 09:20 09:20 WBC 3.2 L RBC 2.72 L Hgb 9.4 L Hct 27.9 L MCV 103 H MCH 34.6 H MCHC 33.8 RDW 19.2 H Plt Count 41 L Lymph % (Auto) 8.8 L Hoke % (Auto) 7.1 Eos % (Auto) 0.8 Baso % (Auto) 0.1 Absolute Neuts (auto) 2.6 Absolute Lymphs (auto) 0.3 L Absolute Monos (auto) 0.2 Absolute Eos (auto) 0.0 Absolute Basos (auto) 0.0 Seg Neutrophils % 83.2 H Platelet Estimate PT INR APTT Sodium 135.8 L Potassium 3.3 L Chloride 104 Carbon Dioxide 25 Anion Gap 7 BUN 58 H Creatinine 1.52 H Est GFR ( Amer) 55 L Est GFR (MDRD) Non-Af 46 L Glucose 62 L POC Glucose Calcium 8.1 L Phosphorus 2.7 Magnesium 2.0 Total Bilirubin 1.5 H Direct Bilirubin 1.0 H Neonat Total Bilirubin Not Reportable Neonat Direct Bilirubin Not Reportable Neonat Indirect Bili Not Reportable AST 38 ALT 19 Alkaline Phosphatase 182 H Creatine Kinase 47 L Troponin I 0.045 NT-Pro-B Natriuret Pep Total Protein 4.7 L Albumin 2.4 L TSH Free T4 Urine Color Urine Appearance Urine pH Ur Specific Arnot Urine Protein Urine Glucose (UA) Urine Ketones Urine Blood Urine Nitrite Urine Nitrite (Reflex) Urine Bilirubin Urine Urobilinogen Ur Leukocyte Esterase Leukocyte Esterase Rfl Urine WBC (Auto) Urine RBC (Auto) U Hyaline Cast (Auto) Squamous Epi Cells Auto Urine Mucus (Auto) Urine Ascorbic Acid Stool Occult Blood Digoxin Slides for Path Review Blood Type Blood Type Confirm Antibody Screen Crossmatch 12/26/19 12/26/19 12/27/19 09:20 10:33 05:25 WBC RBC Hgb Hct MCV MCH MCHC RDW Plt Count Lymph % (Auto) Hoke % (Auto) Eos % (Auto) Baso % (Auto) Absolute Neuts (auto) Absolute Lymphs (auto) Absolute Monos (auto) Absolute Eos (auto) Absolute Basos (auto) Seg Neutrophils % Platelet Estimate PT INR APTT Sodium Potassium Chloride Carbon Dioxide Anion Gap BUN Creatinine Est GFR ( Amer) Est GFR (MDRD) Non-Af Glucose POC Glucose 127 H Calcium Phosphorus Magnesium Total Bilirubin Direct Bilirubin Neonat Total Bilirubin Neonat Direct Bilirubin Neonat Indirect Bili AST ALT Alkaline Phosphatase Creatine Kinase Troponin I 0.040 NT-Pro-B Natriuret Pep 50882 H Total Protein Albumin TSH 4.59 Free T4 Urine Color Urine Appearance Urine pH Ur Specific Arnot Urine Protein Urine Glucose (UA) Urine Ketones Urine Blood Urine Nitrite Urine Nitrite (Reflex) Urine Bilirubin Urine Urobilinogen Ur Leukocyte Esterase Leukocyte Esterase Rfl Urine WBC (Auto) Urine RBC (Auto) U Hyaline Cast (Auto) Squamous Epi Cells Auto Urine Mucus (Auto) Urine Ascorbic Acid Stool Occult Blood Digoxin Slides for Path Review Blood Type Blood Type Confirm Antibody Screen Crossmatch 12/27/19 12/27/19 12/28/19 05:25 05:25 08:17 WBC 3.4 L 4.7 RBC 2.81 L 3.38 L Hgb 9.6 L 11.5 L Hct 28.8 L 35.1 L MCV 103 H 104 H MCH 34.3 H 34.0 H MCHC 33.4 32.8 RDW 19.0 H 19.2 H Plt Count 44 L 56 L Lymph % (Auto) Hoke % (Auto) Eos % (Auto) Baso % (Auto) Absolute Neuts (auto) Absolute Lymphs (auto) Absolute Monos (auto) Absolute Eos (auto) Absolute Basos (auto) Seg Neutrophils % Platelet Estimate PT INR APTT Sodium 135.6 L Potassium 3.4 L Chloride 104 Carbon Dioxide 25 Anion Gap 7 BUN 59 H Creatinine 1.33 H Est GFR ( Amer) > 60 Est GFR (MDRD) Non-Af 53 L Glucose 108 POC Glucose Calcium 7.9 L Phosphorus Magnesium 1.9 Total Bilirubin Direct Bilirubin Neonat Total Bilirubin Neonat Direct Bilirubin Neonat Indirect Bili AST ALT Alkaline Phosphatase Creatine Kinase Troponin I NT-Pro-B Natriuret Pep Total Protein Albumin TSH Free T4 Urine Color Urine Appearance Urine pH Ur Specific Arnot Urine Protein Urine Glucose (UA) Urine Ketones Urine Blood Urine Nitrite Urine Nitrite (Reflex) Urine Bilirubin Urine Urobilinogen Ur Leukocyte Esterase Leukocyte Esterase Rfl Urine WBC (Auto) Urine RBC (Auto) U Hyaline Cast (Auto) Squamous Epi Cells Auto Urine Mucus (Auto) Urine Ascorbic Acid Stool Occult Blood Digoxin Slides for Path Review Blood Type Blood Type Confirm Antibody Screen Crossmatch 12/28/19 12/28/19 12/30/19 08:17 20:54 03:40 WBC Cancelled RBC Cancelled Hgb Cancelled Hct Cancelled MCV Cancelled MCH Cancelled MCHC Cancelled RDW Cancelled Plt Count Cancelled Lymph % (Auto) Hoke % (Auto) Eos % (Auto) Baso % (Auto) Absolute Neuts (auto) Absolute Lymphs (auto) Absolute Monos (auto) Absolute Eos (auto) Absolute Basos (auto) Seg Neutrophils % Platelet Estimate Cancelled PT INR APTT Sodium 138.4 Potassium 4.5 Chloride 106 Carbon Dioxide 27 Anion Gap 5 BUN 47 H Creatinine 1.15 Est GFR ( Amer) > 60 Est GFR (MDRD) Non-Af > 60 Glucose 106 POC Glucose Calcium 8.3 L Phosphorus 1.6 L Magnesium 2.1 Total Bilirubin 1.4 H Direct Bilirubin 0.9 H Neonat Total Bilirubin Not Reportable Neonat Direct Bilirubin Not Reportable Neonat Indirect Bili Not Reportable AST 55 ALT 30 Alkaline Phosphatase 233 H Creatine Kinase Troponin I NT-Pro-B Natriuret Pep Total Protein 5.2 L Albumin 2.6 L TSH Free T4 Urine Color STRAW Urine Appearance CLEAR Urine pH 8.0 Ur Specific Arnot 1.005 Urine Protein NEGATIVE Urine Glucose (UA) NEGATIVE Urine Ketones NEGATIVE Urine Blood MODERATE H Urine Nitrite NEGATIVE Urine Nitrite (Reflex) Urine Bilirubin NEGATIVE Urine Urobilinogen NEGATIVE Ur Leukocyte Esterase NEGATIVE Leukocyte Esterase Rfl Urine WBC (Auto) 1 Urine RBC (Auto) 14 U Hyaline Cast (Auto) 1 Squamous Epi Cells Auto Urine Mucus (Auto) RARE Urine Ascorbic Acid NEGATIVE Stool Occult Blood Digoxin Slides for Path Review Cancelled Blood Type Blood Type Confirm Antibody Screen Crossmatch 12/30/19 12/30/19 12/30/19 03:40 05:15 09:49 WBC 5.9 RBC 2.72 L Hgb 9.3 L D Hct 26.9 L MCV 99 H D MCH 34.3 H MCHC 34.6 RDW 18.4 H Plt Count 85 L Lymph % (Auto) Hoke % (Auto) Eos % (Auto) Baso % (Auto) Absolute Neuts (auto) Absolute Lymphs (auto) Absolute Monos (auto) Absolute Eos (auto) Absolute Basos (auto) Seg Neutrophils % Platelet Estimate PT INR APTT Sodium 140.2 Potassium 4.0 Chloride 98 Carbon Dioxide 36 H Anion Gap 6 BUN 67 H Creatinine 1.21 Est GFR ( Amer) > 60 Est GFR (MDRD) Non-Af > 60 Glucose 109 POC Glucose 133 H Calcium 8.5 Phosphorus Magnesium Total Bilirubin 1.5 H Direct Bilirubin 0.7 H Neonat Total Bilirubin Not Reportable Neonat Direct Bilirubin Not Reportable Neonat Indirect Bili Not Reportable AST 44 ALT 28 Alkaline Phosphatase 202 H Creatine Kinase Troponin I NT-Pro-B Natriuret Pep Total Protein 5.2 L Albumin 2.7 L TSH Free T4 Urine Color Urine Appearance Urine pH Ur Specific Arnot Urine Protein Urine Glucose (UA) Urine Ketones Urine Blood Urine Nitrite Urine Nitrite (Reflex) Urine Bilirubin Urine Urobilinogen Ur Leukocyte Esterase Leukocyte Esterase Rfl Urine WBC (Auto) Urine RBC (Auto) U Hyaline Cast (Auto) Squamous Epi Cells Auto Urine Mucus (Auto) Urine Ascorbic Acid Stool Occult Blood Digoxin 1.71 Slides for Path Review Blood Type Blood Type Confirm Antibody Screen Crossmatch 12/31/19 12/31/19 12/31/19 03:45 03:45 04:40 WBC Cancelled 5.5 RBC Cancelled 1.86 L Hgb Cancelled 6.3 L D Hct Cancelled 18.8 L MCV Cancelled 101 H MCH Cancelled 33.9 H MCHC Cancelled 33.6 RDW Cancelled 18.3 H Plt Count Cancelled 87 L Lymph % (Auto) 8.3 L Hoke % (Auto) 8.7 Eos % (Auto) 0.5 Baso % (Auto) 0.3 Absolute Neuts (auto) 4.5 Absolute Lymphs (auto) 0.5 Absolute Monos (auto) 0.5 Absolute Eos (auto) 0.0 Absolute Basos (auto) 0.0 Seg Neutrophils % 82.2 H Platelet Estimate Cancelled PT INR APTT Sodium 138.2 Potassium 4.4 Chloride 98 Carbon Dioxide 35 H Anion Gap 5 BUN 80 H Creatinine 1.43 H Est GFR ( Amer) > 60 Est GFR (MDRD) Non-Af 49 L Glucose 115 H POC Glucose Calcium 8.2 L Phosphorus Magnesium Total Bilirubin 1.1 Direct Bilirubin 0.7 H Neonat Total Bilirubin Not Reportable Neonat Direct Bilirubin Not Reportable Neonat Indirect Bili Not Reportable AST 45 ALT 29 Alkaline Phosphatase 180 H Creatine Kinase Troponin I NT-Pro-B Natriuret Pep Total Protein 4.6 L Albumin 2.4 L TSH Free T4 Urine Color Urine Appearance Urine pH Ur Specific Arnot Urine Protein Urine Glucose (UA) Urine Ketones Urine Blood Urine Nitrite Urine Nitrite (Reflex) Urine Bilirubin Urine Urobilinogen Ur Leukocyte Esterase Leukocyte Esterase Rfl Urine WBC (Auto) Urine RBC (Auto) U Hyaline Cast (Auto) Squamous Epi Cells Auto Urine Mucus (Auto) Urine Ascorbic Acid Stool Occult Blood Digoxin Slides for Path Review Cancelled Blood Type Blood Type Confirm Antibody Screen Crossmatch 12/31/19 12/31/19 12/31/19 06:03 06:48 21:44 WBC RBC Hgb Hct MCV MCH MCHC RDW Plt Count Lymph % (Auto) Hoke % (Auto) Eos % (Auto) Baso % (Auto) Absolute Neuts (auto) Absolute Lymphs (auto) Absolute Monos (auto) Absolute Eos (auto) Absolute Basos (auto) Seg Neutrophils % Platelet Estimate PT INR APTT Sodium Potassium Chloride Carbon Dioxide Anion Gap BUN Creatinine Est GFR ( Amer) Est GFR (MDRD) Non-Af Glucose POC Glucose Calcium Phosphorus Magnesium Total Bilirubin Direct Bilirubin Neonat Total Bilirubin Neonat Direct Bilirubin Neonat Indirect Bili AST ALT Alkaline Phosphatase Creatine Kinase Troponin I NT-Pro-B Natriuret Pep Total Protein Albumin TSH Free T4 Urine Color Urine Appearance Urine pH Ur Specific Arnot Urine Protein Urine Glucose (UA) Urine Ketones Urine Blood Urine Nitrite Urine Nitrite (Reflex) Urine Bilirubin Urine Urobilinogen Ur Leukocyte Esterase Leukocyte Esterase Rfl Urine WBC (Auto) Urine RBC (Auto) U Hyaline Cast (Auto) Squamous Epi Cells Auto Urine Mucus (Auto) Urine Ascorbic Acid Stool Occult Blood POSITIVE Digoxin Slides for Path Review Blood Type B POSITIVE Blood Type Confirm B POSITIVE Antibody Screen NEGATIVE Crossmatch See Detail 01/01/20 01/01/20 04:10 04:10 WBC 5.3 RBC 2.94 L Hgb 9.6 L D Hct 27.4 L MCV 93 D MCH 32.6 MCHC 34.9 RDW 19.0 H Plt Count 74 L Lymph % (Auto) Hoke % (Auto) Eos % (Auto) Baso % (Auto) Absolute Neuts (auto) Absolute Lymphs (auto) Absolute Monos (auto) Absolute Eos (auto) Absolute Basos (auto) Seg Neutrophils % Platelet Estimate PT INR APTT Sodium 137.4 Potassium 4.2 Chloride 98 Carbon Dioxide 35 H Anion Gap 4 L BUN 87 H Creatinine 1.42 H Est GFR ( Amer) > 60 Est GFR (MDRD) Non-Af 50 L Glucose 99 POC Glucose Calcium 8.1 L Phosphorus Magnesium Total Bilirubin 1.1 Direct Bilirubin 0.7 H Neonat Total Bilirubin Not Reportable Neonat Direct Bilirubin Not Reportable Neonat Indirect Bili Not Reportable AST 185 H ALT 85 H Alkaline Phosphatase 264 H Creatine Kinase Troponin I NT-Pro-B Natriuret Pep Total Protein 4.5 L Albumin 2.3 L TSH Free T4 Urine Color Urine Appearance Urine pH Ur Specific Arnot Urine Protein Urine Glucose (UA) Urine Ketones Urine Blood Urine Nitrite Urine Nitrite (Reflex) Urine Bilirubin Urine Urobilinogen Ur Leukocyte Esterase Leukocyte Esterase Rfl Urine WBC (Auto) Urine RBC (Auto) U Hyaline Cast (Auto) Squamous Epi Cells Auto Urine Mucus (Auto) Urine Ascorbic Acid Stool Occult Blood Digoxin Slides for Path Review Blood Type Blood Type Confirm Antibody Screen Crossmatch IMPRESSION/RECOMMENDATION: 1. 1. Acute on chronic systolic heart failure. His milrinone was discontinued due to hypotension. The patient has been weaned off the dopamine and now we will place the patient back on dobutamine at 5 mcg/kg/min. There is also start the patient on midodrine. We will continue Entresto and beta-abhishek if blood pressure permits. 2. Acute anemia: The patient had a black tarry bowel movement which is possible Hemoccult. This is a GI bleed. The patient is not a candidate for upper or lower endoscopy at present. Hence we will watch the patient's hemoglobin and transfuse if needed. 3. Severe mitral regurgitation. 4. Severe tricuspid regurgitation 5. Severe pulmonary hypertension. 6. DIlated cardiomyopathy and ischemic cardiomyopathy with severely reduced LV ejection fraction. Please refer to treatment outlined above. 7.. COPD: At present no acute exacerbation. Will change albuterol nebulizer treatment to Xopenex treatment 8. Coronary artery disease. History of old myocardial infarction and history of coronary bypass graft surgery. No anginal symptoms. Continue anti-CAD medication, as being down now. 9. History of hypertension: Blood pressure well controlled 10. History of AICD: No firing of his AICD recently. 11. Peripheral vascular disease: History of recent past history of left femoropopliteal bypass surgery. 12 History of pancytopenia 13. Tobacco abuse disorder. We will continue the patient on NicoDerm patch 14. History of facial skin cancer. The patient will be requiring radiation treatment as per Dr. Domingo, radiation oncologist in [place]. 15. DNR status. I have discussed at length with the patient's daughter and she is aware of all the events that occurred including the GI bleed. Medication reviewed medications adjusted. Medical decision making is of high complexity. 60 minutes spent as patient more than 50% time spent in direct patient care. The patient is inotrope has been adjusted by me. Will talk to the patient's daughter on the phone later on. Will follow.
[2020-01-02] MEDS: NITROGLYCERIN 2% OINTMENT 1 GM PACKET TP SCH ×5 (00:06→22:00)
[2020-01-02 04:43] LABS: ALBUMIN 2.4 g/dL (3.5-5.0); ALKALINE PHOSPHATASE 212 U/L (38-126); ASPARTATE AMINO TRANSFERASE 110 U/L (17-59); BILIRUBIN,DIRECT 0.6 mg/dL (0.0-0.4); BLOOD UREA NITROGEN 91 mg/dL (7-20); CARBON DIOXIDE 34 mmol/L (22-30); GLUCOSE 95 mg/dL (75-110); POTASSIUM 4.2 mmol/L (3.6-5.0); TOTAL PROTEIN 4.6 g/dL (6.3-8.2)
[2020-01-02 04:49] LABS: ANION GAP 4 (5-19); CHLORIDE 98 mmol/L (98-107)
[2020-01-02 06:08] LABS: ABSOLUTE EOSINOPHILS # (AUTO) 0.1 10^3/uL (0.0-0.6); ABSOLUTE LYMPHOCYTES (AUTO) 0.6 10^3/uL (0.5-4.7); ABSOLUTE MONOCYTES (AUTO) 0.5 10^3/uL (0.1-1.4); ABSOLUTE NEUT (AUTO) 3.9 10^3/uL (1.7-8.2); BASOPHILS % (AUTO) 0.5 % (0-2); EOSINOPHILS % (AUTO) 2.1 % (0-6); HEMOGLOBIN 9.3 g/dL (13.5-17.0); LYMPHOCYTES % (AUTO) 11.1 % (13-45); MEAN CORPUSCULAR HEMOGLOBIN 32.7 pg (27.0-33.4); MEAN CORPUSCULAR HGB CONC 34.3 g/dL (32.0-36.0); MEAN CORPUSCULAR VOLUME 95 fl (80-97); RED BLOOD COUNT 2.84 10^6/uL (4.35-5.55); RED CELL DISTRIBUTION WIDTH 18.9 % (11.5-14.0); SEGMENTED NEUTROPHILS % (AUTO) 77.3 % (42-78); TOTAL CELLS COUNTED % (AUTO) 100 %; WHITE BLOOD COUNT 5.1 10^3/uL (4.0-10.5)
[2020-01-02 06:33] LABS: PLATELET COUNT 91 10^3/uL (150-450)
[2020-01-02] MEDS: NICOTINE 14 MG/24 HR PATCH.TD24 TD SCH (10:07)
[2020-01-02] MEDS: FLUTICASONE/UMECLIDIN/VILANTER 100-62.5-25 MCG/DOSE IH SCH (10:07)
[2020-01-02] MEDS: FAMOTIDINE INJ/PF 20 MG/2 ML SDV IV SCH ×2 (10:07→21:32)
[2020-01-02] MEDS: CARVEDILOL 6.25 MG TABLET PO SCH ×2 (10:07→22:00)
[2020-01-02] MEDS: FUROSEMIDE INJ/PF 40 MG/4 ML SDV IV SCH ×2 (10:07→17:27)
[2020-01-02] MEDS: MIDODRINE HCL 5 MG TABLET PO SCH ×3 (10:07→17:27)
[2020-01-02] MEDS: MAGNESIUM OXIDE 400 MG TABLET PO SCH ×3 (10:07→17:27)
[2020-01-02] MEDS: FLUOXETINE HCL 20 MG CAPSULE PO SCH (10:07)
[2020-01-02] MEDS: DIGOXIN 0.25 MG TABLET PO SCH (10:08)
[2020-01-02] MEDS: SACUBITRIL/VALSARTAN 49 MG/51 MG TABLET PO SCH ×2 (10:08→21:44)
[2020-01-02] MEDS: DOBUTAMINE HCL/D5W 500 MG/250 ML RTUINJ IV PRN (14:39)
[2020-01-02] MEDS: ACETAMINOPHEN 325 MG TABLET PO PRN (18:02)
--- NOTE | 2020-01-02 19:18 | Progress Note ---
Provider Note Provider Note: CARDIOLOGY PROGRESS NOTE by Dr. Alicia Brizuela on 01/02/2020. SUBJECTIVE: The patient's blood pressure is better although at times his blood pressure goes down to the 90s. He is able to tolerate Coreg and Entresto. He is also on IV Lasix. He denies any chest pain or discomfort. He has intermittent atrial pacing with ventricular capture. There is no arrhythmias seen. There is no firing of the AICD. He denies any anginal symptoms. There is no shortness of breath. There is no PND orthopnea or leg edema. His appetite is improved. His hemoglobin is stable. There is no abdominal pain or nausea vomiting. His disease level is 2.3. He has no symptoms to suggest just toxicity. As the patient has elevated this level without toxicity. PHYSICAL EXAMINATION: The patient appears to be chronically ill. And appears to be emaciated. Selected Entries 01/02/20 12:00 Temperature 97.2 F Temperature Axillary Source Pulse Rate 61 Respiratory 21 H Rate Blood Pressure 101/51 L [Right Upper Arm] Blood Pressure 67 Mean [Right Upper Arm] Blood Pressure Supine Position [Right Upper Arm] O2 Sat by Pulse 98 Oximetry Oxygen Delivery Room Air Method ( includes room air) HEAD: Is atraumatic normocephalic. EYES: Pupils are equal round regular devang ctive to light and accommodation. Extraocular movements are normal. There is no conjunctival pallor. There is no scleral icterus. EARS: Tympanic membranes are intact. External auditory canals are clear. NOSE: There is no deviated nasal septum. There is no inflammation of the nasal mucous membrane. MOUTH: Mucous membranes of mouth are dry tongue is still dry. THROAT: There is no redness of the oropharynx. There is no exudates. 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 There is no catie-care ecchymosis. NECK: Supple. There is mild JVD present. Carotids are equal there is no bruit. There is no lymphadenopathy. There is no goiter. There is no accessory muscle respiration use. Trachea central. LUNGS: Shows diminished air entry prolonged expiration there is bibasilar rales of CHF. There is no rhonchi or wheezing. There is no chest wall tenderness on palpation. On palpation there is hyperresonance. There is bibasilar rales of heart failure. HEART: S1-S2 is heard. There is no S3 gallop. There is no S4 gallop there is systolic murmur left sternal border and the apex there is no rub. ABDOMEN: Soft. There is no paraspinal megaly. Bowel sounds are well heard. There is no hepatosplenomegaly. EXTREMITIES: There is diminished bilateral femoral pulses with bruits. 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 He has bilateral femoral bruits present. Leg pulses are diminished. There is no pedal edema bilaterally. There is no DVT or cellulitis. There is no cyanosis or clubbing. ABRASIVE GRADER: The patient is conscious awake alert oriented x3 with no focal deficits. PSYCHIATRIC: Patient is a patient judgment insight are intact his affect is normal, The patient's intake is does not seem to be accurate. The patient output is 2110 mL. Labs- All tests 24 hr 01/02/20 01/02/20 01/02/20 04:10 04:15 05:50 WBC 5.1 RBC 2.84 L Hgb 9.3 L Hct 27.0 L MCV 95 MCH 32.7 MCHC 34.3 RDW 18.9 H Plt Count 91 L Lymph % (Auto) 11.1 L [place] % (Auto) 9.0 Eos % (Auto) 2.1 Baso % (Auto) 0.5 Absolute Neuts (auto) 3.9 Absolute Lymphs (auto) 0.6 Absolute Monos (auto) 0.5 Absolute Eos (auto) 0.1 Absolute Basos (auto) 0.0 Seg Neutrophils % 77.3 Sodium 136.4 L Potassium 4.2 Chloride 98 Carbon Dioxide 34 H Anion Gap 4 L BUN 91 H Creatinine 1.44 H Est GFR ( Amer) 59 L Est GFR (MDRD) Non-Af 49 L Glucose 95 Calcium 8.0 L Total Bilirubin 1.0 Direct Bilirubin 0.6 H Neonat Total Bilirubin Not Reportable Neonat Direct Bilirubin Not Reportable Neonat Indirect Bili Not Reportable AST 110 H ALT 75 H Alkaline Phosphatase 212 H Total Protein 4.6 L Albumin 2.4 L Digoxin 2.30 H* Chest X-Ray 12/24/19 19:50 IMPRESSION: New right basilar airspace consolidative change, suspicious for pneumonia. Head CT 12/24/19 20:48 IMPRESSION: 1. No acute intracranial findings. 2. Senescent changes with chronic microvascular ischemia and old lacunar infarcts. Chest X-Ray 12/28/19 00:00 IMPRESSION: 1. New right pleural effusion since 12/24/2019, with worsening right pulmonary infiltrate, likely pneumonia. Chest X-Ray 12/29/19 00:00 IMPRESSION: Right internal jugular catheter as described. Improving right lower lobe pneumonia. IMPRESSION/RECOMMENDATION: 1. Acute on chronic systolic heart failure. His milrinone was discontinued due to hypotension. The patient has been weaned off the dopamine and now we will place the patient back on dobutamine at 5 mcg/kg/min. There is also start the patient on midodrine. We will continue Entresto and beta-abhishek if blood pressure permits. 2. Acute anemia: The patient had a black tarry bowel movement which is possible Hemoccult. This is a GI bleed. The patient is not a candidate for upper or lower endoscopy at present. Hence we will watch the patient's hemoglobin and transfuse if needed. 3. Severe mitral regurgitation. 4. Severe tricuspid regurgitation 5. Severe pulmonary hypertension. 6. DIlated cardiomyopathy and ischemic cardiomyopathy with severely reduced LV ejection fraction. Please refer to treatment outlined above. 7.. COPD: At present no acute exacerbation. Will change albuterol nebulizer treatment to Xopenex treatment 8. Coronary artery disease. History of old myocardial infarction and history of coronary bypass graft surgery. No anginal symptoms. Continue anti-CAD medication, as being down now. 9. History of hypertension: Blood pressure well controlled 10. History of AICD: No firing of his AICD recently. 11. Peripheral vascular disease: History of recent past history of left femoropopliteal bypass surgery. 12 History of pancytopenia 13. Tobacco abuse disorder. We will continue the patient on NicoDerm patch 14. History of facial skin cancer. The patient will be requiring radiation treatment as per Dr. Domingo, radiation oncologist in [place]. 15. Elevated digoxin level without any evidence of digitoxicity. 16. DNR status. I have discussed at length with the patient's daughter and she is aware of all the events that occurred including the GI bleed. Medication reviewed medications adjusted. Medical decision making is of high complexity. 60 minutes spent as patient more than 50% time spent in direct patient care. The patient is inotrope has been adjusted by me. Will talk to the patient's daughter on the phone later on. Will follow.
[2020-01-02] MEDS: ATORVASTATIN CALCIUM 40 MG TABLET PO SCH (21:32)
[2020-01-03] MEDS: DOPAMINE HCL 800 MG/D5W 250 ML IV PRN (02:06)
[2020-01-03 04:41] LABS: ABSOLUTE LYMPHOCYTES (AUTO) 0.6 10^3/uL (0.5-4.7); ABSOLUTE MONOCYTES (AUTO) 0.4 10^3/uL (0.1-1.4); BASOPHILS % (AUTO) 0.7 % (0-2); EOSINOPHILS % (AUTO) 0.9 % (0-6); HEMATOCRIT 19.7 % (37.9-51.0); LYMPHOCYTES % (AUTO) 11.5 % (13-45); MEAN CORPUSCULAR HEMOGLOBIN 32.9 pg (27.0-33.4); MEAN CORPUSCULAR HGB CONC 34.8 g/dL (32.0-36.0); MEAN CORPUSCULAR VOLUME 94 fl (80-97); MONOCYTES % (AUTO) 8.3 % (3-13); RED BLOOD COUNT 2.08 10^6/uL (4.35-5.55); RED CELL DISTRIBUTION WIDTH 18.2 % (11.5-14.0); SEGMENTED NEUTROPHILS % (AUTO) 78.6 % (42-78); TOTAL CELLS COUNTED % (AUTO) 100 %; WHITE BLOOD COUNT 5.1 10^3/uL (4.0-10.5)
[2020-01-03 05:04] LABS: PLATELET COUNT 96 10^3/uL (150-450)
[2020-01-03 05:18] LABS: HEMOGLOBIN 6.9 g/dL (13.5-17.0)
[2020-01-03] MEDS: NITROGLYCERIN 2% OINTMENT 1 GM PACKET TP SCH ×3 (05:52→17:13)
[2020-01-03] MEDS: MIDODRINE HCL 5 MG TABLET PO SCH ×3 (09:00→17:13)
[2020-01-03] MEDS: MAGNESIUM OXIDE 400 MG TABLET PO SCH ×3 (09:10→17:13)
[2020-01-03] MEDS: SACUBITRIL/VALSARTAN 49 MG/51 MG TABLET PO SCH (10:00)
[2020-01-03] MEDS: DIGOXIN 0.25 MG TABLET PO SCH (10:59)
[2020-01-03] MEDS: FLUOXETINE HCL 20 MG CAPSULE PO SCH (10:59)
[2020-01-03] MEDS: FUROSEMIDE INJ/PF 40 MG/4 ML SDV IV SCH ×2 (10:59→17:14)
[2020-01-03] MEDS: CARVEDILOL 6.25 MG TABLET PO SCH ×2 (11:00→21:37)
[2020-01-03] MEDS: NICOTINE 14 MG/24 HR PATCH.TD24 TD SCH (11:01)
[2020-01-03] MEDS: FAMOTIDINE INJ/PF 20 MG/2 ML SDV IV SCH ×2 (11:01→23:02)
[2020-01-03] MEDS: FLUTICASONE/UMECLIDIN/VILANTER 100-62.5-25 MCG/DOSE IH SCH (11:01)
[2020-01-03 18:17] LABS: ABSOLUTE LYMPHOCYTES (AUTO) 0.8 10^3/uL (0.5-4.7); ABSOLUTE MONOCYTES (AUTO) 0.7 10^3/uL (0.1-1.4); ABSOLUTE NEUT (AUTO) 5.7 10^3/uL (1.7-8.2); BASOPHILS % (AUTO) 0.4 % (0-2); EOSINOPHILS % (AUTO) 0.3 % (0-6); HEMATOCRIT 26.5 % (37.9-51.0); LYMPHOCYTES % (AUTO) 10.8 % (13-45); MEAN CORPUSCULAR HEMOGLOBIN 32.4 pg (27.0-33.4); MEAN CORPUSCULAR HGB CONC 35.4 g/dL (32.0-36.0); MEAN CORPUSCULAR VOLUME 92 fl (80-97); MONOCYTES % (AUTO) 9.5 % (3-13); RED BLOOD COUNT 2.89 10^6/uL (4.35-5.55); RED CELL DISTRIBUTION WIDTH 15.7 % (11.5-14.0); TOTAL CELLS COUNTED % (AUTO) 100 %; WHITE BLOOD COUNT 7.2 10^3/uL (4.0-10.5)
[2020-01-03 18:41] LABS: BLOOD UREA NITROGEN 111 mg/dL (7-20); CALCIUM 7.9 mg/dL (8.4-10.2); CARBON DIOXIDE 32 mmol/L (22-30); CHLORIDE 99 mmol/L (98-107); GLUCOSE 113 mg/dL (75-110); POTASSIUM 4.9 mmol/L (3.6-5.0)
[2020-01-03 18:43] LABS: ANION GAP 4 (5-19); HEMOGLOBIN 9.4 g/dL (13.5-17.0); PLATELET COUNT 91 10^3/uL (150-450)
[2020-01-03] MEDS ORDERED: NOREPINEPHRINE BITARTRATE INJ/PF 4 MG/4 ML SDV IV ONE (19:02)
--- NOTE | 2020-01-03 19:06 | PDOC CONSULTATION ---
Consultation Consult Date: 01/03/20 Attending physician:: PONCHO BARTHOLOMEW Provider Consulted: DEXTER CASTILLO Consult reason:: gi bleed History of Present Illness Admission Date/PCP: 12/24/19 23:01 [facility] History of Present Illness: LORIE OLIVIA is a 69 year old male past medical history of severe CHF, chronic anemia, CAD, hypertension, tobacco dependence, oxygen dependent COPD, and unfortunately history of medical noncompliance with recurrent admission for acute CHF exacerbation, last admission 11/11/2019. Seen in the ED on 12/23 regarding worsening generalized weakness. He is currently living alone and experiences difficulties with medication compliance. ED evaluation showed mildily elevated troponins, elevated BNP and CXR concerning for RLL pneumonia. 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 Patient is interested in SNF placement following disposition from hospital has been in the hospital and tx to icu for worsening chf, now on pressors hct has been decreasing over last couple of days and has recieved 4 units of packed red blood cells now having hematochezia pt has sever acvd and is on plavix at home, stopped upon admission here a few days ago because of ongoing hematochezia, surgery consulted ng tube placed at bedside and noted to have blood in stomach Past Medical History Cardiac Medical History: Reports: Congestive Heart Failure, Myocardial Infarction, Hyperlipidema, Hypertension Pulmonary Medical History: Reports: Chronic Obstructive Pulmonary Disease (COPD) GI Medical History: Reports: Gastroesophageal Reflux Disease Psychiatric Medical History: Denies: Depression Past Surgical History Past Surgical History: Reports: Cardiac Catheterization - CABG, Coronary Artery Bypass Graft, Herniorrhaphy - bilateral inguinal hernia repair, Orthopedic Surgery, Pacemaker, Vascular Surgery - fem-pop Social History Smoking Status: Current Every Day Smoker Electronic Cigarette use?: No Frequency of Alcohol Use: None Hx Recreational Drug Use: No Hx Prescription Drug Abuse: No - Advance Directive Resuscitation Status: Do Not Resuscitate Family History Family History: Reviewed & Not Pertinent Parental Family History Reviewed: No Children Family History Reviewed: NA Sibling(s) Family History Reviewed.: NA Medication/Allergy Home Medications: Carvedilol 25 mg PO Q12 10/22/19 Clopidogrel Bisulfate [Plavix 75 mg Tablet] 75 mg PO DAILY 10/22/19 Digoxin [Lanoxin 0.25 mg Tablet] 0.25 mg PO DAILY 10/22/19 Isosorbide Mononitrate [Imdur 30 mg Tablet.er] 30 mg PO DAILY 10/22/19 Nitroglycerin [Nitrostat 0.4 mg (1/150 Gr) Tabs 25/Bottle] 0.4 mg SL Q5MP PRN 10/22/19 Rosuvastatin Calcium [Crestor] 20 mg PO QHS 10/22/19 Tiotropium Br/Olodaterol HCl [Stiolto Respimat Inhal [place]] 2 puff IH DAILY 10/22/19 Tiotropium Waves [Spiriva Handihaler 5 Cap/Kit (18 Mcg/Cap)] 1 cap IH DAILY 10/22/19 Valsartan [Diovan 80 mg Tablet] 40 mg PO DAILY 10/22/19 Allergies/Adverse Reactions: No Known Allergies Allergy (Verified 11/11/19 20:49) Review of Systems Constitutional: PRESENT: anorexia, fatigue, weakness Eyes: ABSENT: as per HPI, visual disturbances, other Ears: ABSENT: as per HPI, hearing changes, other Nose, Mouth, and Throat: ABSENT: as per HPI, headache(s), mouth pain, sore throat, vertigo, other Breasts: ABSENT: as per HPI, other Cardiovascular: PRESENT: dyspnea on exertion Respiratory: PRESENT: cough, dyspnea Gastrointestinal: PRESENT: bloating, melena Musculoskeletal: ABSENT: as per HPI, back pain, deformity, joint swelling, muscle weakness, other Integumentary: ABSENT: as per HPI, diaphoresis, erythema, lesions, pruritus, rash, wounds, other Neurological: ABSENT: as per HPI, abnormal gait, abnormal movements, abnormal speech, confusion, convulsions, dizziness, focal weakness, frequent falls, lack of coordination, memory loss, numbness, paresthesias, restless legs, syncope, ti ngling, tremor(s), vertigo, weakness, other Psychiatric: ABSENT: as per HPI, anxiety, depression, hallucinations, homidical ideation, suicidal ideation, other Endocrine: ABSENT: as per HPI, cold intolerance, flushing, heat intolerance, menstrual abnormalities, polydipsia, polyphagia, polyuria, other Hematologic/Lymphatic: ABSENT: as per HPI, easy bleeding, easy bruising, lymphadenopathy, other Allergic/Immunologic: ABSENT: as per HPI, seasonal rhinorrhea, other Physical Exam Vital Signs: Temp Pulse Resp BP Pulse Ox 97.4 F 88 23 H 104/62 100 01/03/20 16:00 01/03/20 18:00 01/03/20 18:00 01/03/20 18:00 01/03/20 18:00 Intake & Output 01/02/20 01/03/20 01/04/20 06:59 06:59 06:59 Intake Total 35 113 659 Output Total 2110 1050 1040 [facility] [phone] Weight 44.9 kg 45.4 kg General appearance: PRESENT: mild distress Head exam: PRESENT: atraumatic Eye exam: PRESENT: EOMI Ear exam: PRESENT: normal external ear exam Mouth exam: PRESENT: moist Teeth exam: PRESENT: poor dentation Neck exam: PRESENT: full ROM Respiratory exam: PRESENT: clear to auscultation [place] Cardiovascular exam: PRESENT: RRR Pulses: PRESENT: normal radial pulses, normal femoral pulses Breast: PRESENT: Normal GI/Abdominal exam: PRESENT: soft Rectal exam: PRESENT: deferred, other - rectal tube in place Gentrourinary exam: PRESENT: indwelling catheter Extremities exam: PRESENT: full ROM Musculoskeletal exam: PRESENT: full ROM Neurological exam: PRESENT: alert, awake, oriented to person, oriented to place Psychiatric exam: PRESENT: appropriate affect Skin exam: PRESENT: dry Results Laboratory Results: 01/03/20 17:40 01/03/20 17:40 01/03/20 01/03/20 01/03/20 04:15 05:25 17:40 WBC 5.1 7.2 RBC 2.08 L 2.89 L Hgb 6.9 L D 9.4 L D Hct 19.7 L 26.5 L MCV 94 92 MCH 32.9 32.4 MCHC 34.8 35.4 RDW 18.2 H 15.7 H Plt Count 96 L 91 L Seg Neutrophils % 78.6 H 79.0 H Sodium Potassium Chloride Carbon Dioxide Anion Gap BUN Creatinine Est GFR ( Amer) Glucose Calcium Magnesium Blood Type B POSITIVE Antibody Screen NEGATIVE 01/03/20 17:40 WBC RBC Hgb Hct MCV MCH MCHC RDW Plt Count Seg Neutrophils % Sodium 135.2 L Potassium 4.9 Chloride 99 Carbon Dioxide 32 H Anion Gap 4 L BUN 111 H Creatinine 1.69 H Est GFR ( Amer) 49 L Glucose 113 H Calcium 7.9 L Magnesium 2.7 H Blood Type Antibody Screen 12/24/19 12/25/19 12/25/19 21:19 02:36 09:38 Creatine Kinase Troponin I 0.043 0.045 0.045 NT-Pro-B Natriuret Pep 144757 H 12/26/19 12/26/19 09:20 09:20 Creatine Kinase 47 L Troponin I 0.040 NT-Pro-B Natriuret Pep 53331 H Impressions: Head CT 12/24/19 20:48 IMPRESSION: 1. No acute intracranial findings. 2. Senescent changes with chronic microvascular ischemia and old lacunar infarcts. Chest X-Ray 12/29/19 00:00 IMPRESSION: Right internal jugular catheter as described. Improving right lower lobe pneumonia. Assessment & Plan - Plan Summary Plan Summary: sever chf and cardiac disease now with dropping hct, hematochezia, and blood in ng tube recommend-upper endoscopy.
[2020-01-03] MEDS: DEXTROSE 5%-WATER 250 ML with NOREPINEPHRINE BITARTRATE 4 MG IV PRN ×2 (19:17)
[2020-01-03] MEDS: DOPAMINE HCL/DEXTROSE 5%-WATER 800 MG/250 ML RTUINJ IV PRN (19:36)
[2020-01-03] MEDS ORDERED: DIPHENHYDRAMINE HCL 50 MG/ML VIAL ONE (19:39)
[2020-01-03] MEDS ORDERED: ONDANSETRON HCL INJ/PF 4 MG/2 ML SDV ONE (19:39)
[2020-01-03] MEDS ORDERED: EPINEPHRINE INJ 1 MG/10 ML DISP.SYRIN ONE (19:39)
[2020-01-03] MEDS ORDERED: NALOXONE HCL INJ/PF 0.4 MG/1 ML SDV ONE (19:39)
[2020-01-03] MEDS ORDERED: FLUMAZENIL INJ 0.5 MG/5 ML VIAL ONE (19:39)
[2020-01-03] MEDS ORDERED: GLUCAGON,HUMAN RECOMB 1 MG INJ ONE (19:39)
[2020-01-03] MEDS ORDERED: FENTANYL CITRATE INJ/PF 100 MCG/2 ML AMPUL ONE (19:39)
[2020-01-03] MEDS ORDERED: NORMAL SALINE 250 ML IV PRN ×2 (19:40)
[2020-01-03] MEDS: MIDAZOLAM 2 MG/2 ML INJ ONE ×2 (20:02→20:07)
[2020-01-03] MEDS ORDERED: PANTOPRAZOLE SODIUM 40 MG VIAL IV ONE ×2 (20:16→21:31)
--- NOTE | 2020-01-03 20:44 | Operative Report ---
Nonrecallable Operative Report DATE OF SURGERY: 01/03/20 PREOPERATIVE DIAGNOSIS: gi bleeding POSTOPERATIVE DIAGNOSIS: bleeding duodenal ulcer OPERATION: Esophago-gastroduodenoscopy with control of bleeding duodenal ulcer SURGEON: DEXTER CASTILLO ANESTHESIA: Moderate Sedation TISSUE REMOVED OR ALTERED: None COMPLICATIONS: None ESTIMATED BLOOD LOSS: 25 cc INTRAOPERATIVE FINDINGS: Posterior duodenal ulcer actively bleeding controlled with 0.35 mg of injected epinephrine PROCEDURE: Procedure was done while the patient was in the intensive care unit he was placed in his left lateral decubitus position after appropriate timeout site verification the procedure commenced He was given 2 mg of IV Versed. The Olympus therapeutic gastroscope was utilized for the procedure was passed into the posterior pharynx through the upper esophageal sphincters into the proximal esophagus. As we entered the stomach we noted some old heme in the body of the stomach as well as the antrum and as we approach the pylorus we noted some blood emanating from the pylorus. Was able to intubate the pylorus Once we note intubated the pylorus and the duodenal bulb in the posterior position there was active bleeding it was oozing and not squirting I did not identify a visible vessel. I did identify the ulcer in the posterior position and circumferentially injected around the ulcer with 0.35 mg of epinephrine utilizing 3.5 cc. The bleeding seemed to stop there was a large clot that was irrigated off the ulcer. Distal to that ulcer in the duodenum there was no further evidence of bleeding we then saw bile emanating from the second portion of the duodenum. As we withdrew the scope we again examined it and it seemed to have stopped. The patient will be started on a Protonix drip maintained n.p.o. and given only p.o. ice chips for now.
[2020-01-03] MEDS: NORMAL SALINE 100 ML with PANTOPRAZOLE SODIUM 80 MG IV PRN ×2 (21:33)
[2020-01-03] MEDS: ATORVASTATIN CALCIUM 40 MG TABLET PO SCH (21:37)
--- NOTE | 2020-01-03 23:08 | Progress Note ---
Provider Note Provider Note: CARDIOLOGY PROGRESS NOTE by Dr. Alicia Brizuela on 01/03/2020. The following is the summary of the days' events SUBJECTIVE: The patient last night was hypotensive and had to be started on dopamine which is increased to 5 mcg/kg/min. Subsequently the patient had hemoglobin came back 6.9 this morning and the patient did receive 2 units of packed RBCs. Subsequently the patient again started to become hypotensive at this time he also had abdominal cramps and had hematochezia. Hence 2 more units of packed RBCs were ordered and Dr. Vila the surgical hist was consulted. He placed an NG tube which showed blood in the upper GI tract. Hence the patient had a bedside endoscopy upper endoscopy which showed a duodenal ulcer which was the site of recent bleed. This was cauterized. At present there is no need for bleeding scan. But if there is recurrence of hematochezia or if the hemoglobin drops then will get a GI bleeding scan. The patient is relatively in spite of the hypertension has remained stable. There is no firing of his AICD. There is no ventricle arrhythmia seen on the monitor or atrial arrhythmias seen on the monitor. Of note the patient denies any chest pain or discomfort. His shortness of breath is been stable with no increased symptoms suggestive of acute exacerbation of COPD. We will stop the patient's all p.o. medications except digoxin and midodrine. We will continue the patient is dopamine and Levophed. Patient is prognosis very guarded. This is been discussed along with all the events that unfolded this morning with the patient with the patient's son and the patient's daughter by telephone. Discussed the case with the surgical hist also. PHYSICAL EXAMINATION: The patient appears to be chronically ill and malnourished. He appears to be emaciated. Selected Entries 01/03/20 01/03/20 01/03/20 20:35 21:42 21:43 Temperature 93.9 F L Temperature Axillary Source Heart Rate ( 93 Monitors) Respiratory 22 H Rate Blood Pressure 105/74 Blood Pressure 84 Mean O2 Sat by Pulse 98 Oximetry Patient on 3 L/min nasal cannula. HEAD: Is atraumatic normocephalic. EYES: Pupils are equal round regular reactive to light and accommodation. Extraocular movements are normal. There is no conjunctival pallor. There is no scleral icterus. EARS: Tympanic membranes are intact. External auditory canals are clear. NOSE: There is no deviated nasal septum. There is no inflammation of the nasal mucous membrane. MOUTH: Mucous membranes of mouth are dry tongue is still dry. THROAT: There is no redness of the oropharynx. There is no exudates. 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 There is no catie-care ecchymosis. NECK: Supple. There is mild JVD present. Carotids are equal there is no bruit. There is no lymphadenopathy. There is no goiter. There is no accessory muscle respiration use. Trachea central. LUNGS: Shows diminished air entry prolonged expiration there is bibasilar rales of CHF. There is no rhonchi or wheezing. There is no chest wall tenderness on palpation. On palpation there is hyperresonance. There is bibasilar rales of heart failure. HEART: S1-S2 is heard. There is no S3 gallop. There is no S4 gallop there is systolic murmur left sternal border and the apex there is no rub. ABDOMEN: Soft. There is no paraspinal megaly. Bowel sounds are hyperactive. There is no hepatosplenomegaly. EXTREMITIES: There is diminished bilateral femoral pulses with bruits. There is a scar in the left lower extremity from his left femoral- popliteal bypass surgery. He has bilateral femoral bruits present. Leg pulses are diminished. There is no pedal edema bilaterally. There is no DVT or cellulitis. There is no cyanosis or clubbing. 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 PSYCHIATRIC: Patient is a patient judgment insight are intact his affect is normal, The patient's intake is does not seem to be accurate. The patient output is 1050 mL. Labs- All tests 24 hr 12/31/19 01/03/20 01/03/20 06:03 04:15 04:15 WBC 5.1 RBC 2.08 L Hgb 6.9 L D Hct 19.7 L MCV 94 MCH 32.9 MCHC 34.8 RDW 18.2 H Plt Count 96 L Lymph % (Auto) 11.5 L Holmes % (Auto) 8.3 Eos % (Auto) 0.9 Baso % (Auto) 0.7 Absolute Neuts (auto) 4.0 Absolute Lymphs (auto) 0.6 Absolute Monos (auto) 0.4 Absolute Eos (auto) 0.0 Absolute Basos (auto) 0.0 Seg Neutrophils % 78.6 H Sodium Potassium Chloride Carbon Dioxide Anion Gap BUN Creatinine Est GFR ( Amer) Est GFR (MDRD) Non-Af Glucose Calcium Magnesium Digoxin 1.88 Blood Type Blood Type Confirm Antibody Screen Crossmatch See Detail 01/03/20 01/03/20 01/03/20 05:25 17:40 17:40 WBC 7.2 RBC 2.89 L Hgb 9.4 L D Hct 26.5 L MCV 92 MCH 32.4 MCHC 35.4 RDW 15.7 H Plt Count 91 L Lymph % (Auto) 10.8 L Holmes % (Auto) 9.5 Eos % (Auto) 0.3 Baso % (Auto) 0.4 Absolute Neuts (auto) 5.7 Absolute Lymphs (auto) 0.8 Absolute Monos (auto) 0.7 Absolute Eos (auto) 0.0 Absolute Basos (auto) 0.0 Seg Neutrophils % 79.0 H Sodium 135.2 L Potassium 4.9 Chloride 99 Carbon Dioxide 32 H Anion Gap 4 L BUN 111 H Creatinine 1.69 H Est GFR ( Amer) 49 L Est GFR (MDRD) Non-Af 41 L Glucose 113 H Calcium 7.9 L Magnesium 2.7 H Digoxin Blood Type B POSITIVE Blood Type Confirm B POSITIVE Antibody Screen NEGATIVE Crossmatch See Detail Chest X-Ray 12/24/19 19:50 IMPRESSION: New right basilar airspace consolidative change, suspicious for pneumonia. Head CT 12/24/19 20:48 IMPRESSION: 1. No acute intracranial findings. 2. Senescent changes with chronic microvascular ischemia and old lacunar infarcts. Chest X-Ray 12/28/19 00:00 IMPRESSION: 1. New right pleural effusion since 12/24/2019, with worsening right pulmonary infiltrate, likely pneumonia. Chest X-Ray 12/29/19 00:00 IMPRESSION: Right internal jugular catheter as described. Improving right lower lobe pneumonia. IMPRESSION/RECOMMENDATION: 1. Acute anemia: The patient again dropped his hemoglobin to 6.9. Early this morning he was given 2 units of blood transfusion. Subsequently the patient again became hypotensive and had taylor hematochezia. He was again given 2 more units of blood and surgical his consult was obtained with Dr. Vila. The patient had NG tube placed which showed blood in the NG tube hence there is an upper GI bleed. The patient underwent endoscopy in the ICU under local and sedation. The patient tolerated the procedure well. A bleeding duodenal ulcer was found although the bleeding is stopped the ulcer was injected with epinephrine. The patient's Entresto, beta-abhishek, Prozac and all his medications were discontinued. 2. Acute on chronic systolic heart failure. His milrinone was discontinued due to hypotension. The patient became hypotensive after his dopaminwas weaned off hence the patient was back on the dopamine and also Levophed. This was to help facilitate the endoscopy. The patient subsequently blood pressure remained sta ble on 7.5 mcg/kg/min of dopamine and 7.5 mcg/min of Levophed infusion 3. Severe mitral regurgitation. 4. Severe tricuspid regurgitation 5. Severe pulmonary hypertension. 6. DIlated cardiomyopathy and ischemic cardiomyopathy with severely reduced LV ejection fraction. Please refer to treatment outlined above. 7.. COPD: At present no acute exacerbation. Will change albuterol nebulizer t reatment to Xopenex treatment 8. Coronary artery disease. History of old myocardial infarction and history of coronary bypass graft surgery. No anginal symptoms. Continue anti-CAD medication, as being down now. 9. History of hypertension: Blood pressure well controlled 10. History of AICD: No firing of his AICD recently. 11. Peripheral vascular disease: History of recent past history of left femoropopliteal bypass surgery. 12 History of pancytopenia 13. Tobacco abuse disorder. We will continue the patient on NicoDerm patch 14. History of facial skin cancer. The patient will be requiring radiation treatment as per Dr. Domingo, radiation oncologist in [place]. 15. Elevated digoxin level without any evidence of digitoxicity. Dig level back to normal. Will resume the patient digoxin. 16. Upper GI bleed. Will watch if the patient has rebleeding then will get a bleeding scan tomorrow to make sure that the patient does not have a GI bleed from the lower GI tract also. 17. Hypotension: Resolved on inotropes. DNR status. All above findings including endoscopy and injection of the bleeding duodenal ulcer have been discussed with the patient's son Mr. Jeremi Phillips and the pa brenna's daughter Edith Phillips by telephone by me. They have been brought to up-to-date informationclinical condition on their father. Medication reviewed medications adjusted. Medical decision making is of high complexity. 60 minutes spent as patient more than 50% time spent in direct patient care. The patient is inotrope has been adjusted by me. Will talk to the patient's daughter on the phone later on. Will follow.
[2020-01-03] MEDS: FUROSEMIDE INJ/PF 20 MG/2 ML SDV IV PRN (23:54)
[2020-01-04 04:04] LABS: ABSOLUTE LYMPHOCYTES (AUTO) 0.8 10^3/uL (0.5-4.7); ABSOLUTE MONOCYTES (AUTO) 0.8 10^3/uL (0.1-1.4); ABSOLUTE NEUT (AUTO) 9.8 10^3/uL (1.7-8.2); BASOPHILS % (AUTO) 0.4 % (0-2); HEMATOCRIT 41.7 % (37.9-51.0); LYMPHOCYTES % (AUTO) 6.7 % (13-45); MEAN CORPUSCULAR HEMOGLOBIN 32.2 pg (27.0-33.4); MEAN CORPUSCULAR HGB CONC 35.2 g/dL (32.0-36.0); MEAN CORPUSCULAR VOLUME 92 fl (80-97); MONOCYTES % (AUTO) 7.3 % (3-13); RED BLOOD COUNT 4.56 10^6/uL (4.35-5.55); RED CELL DISTRIBUTION WIDTH 14.7 % (11.5-14.0); SEGMENTED NEUTROPHILS % (AUTO) 85.6 % (42-78); TOTAL CELLS COUNTED % (AUTO) 100 %; WHITE BLOOD COUNT 11.5 10^3/uL (4.0-10.5)
[2020-01-04 04:30] LABS: ALBUMIN 2.7 g/dL (3.5-5.0); ALKALINE PHOSPHATASE 237 U/L (38-126); ANION GAP 6 (5-19); ASPARTATE AMINO TRANSFERASE 103 U/L (17-59); BILIRUBIN,DIRECT 0.7 mg/dL (0.0-0.4); BILIRUBIN,TOTAL 1.4 mg/dL (0.2-1.3); BLOOD UREA NITROGEN 116 mg/dL (7-20); CALCIUM 8.4 mg/dL (8.4-10.2); CARBON DIOXIDE 31 mmol/L (22-30); CHLORIDE 96 mmol/L (98-107); GLUCOSE 147 mg/dL (75-110); POTASSIUM 5.2 mmol/L (3.6-5.0); TOTAL PROTEIN 5.1 g/dL (6.3-8.2)
[2020-01-04 04:31] LABS: HEMOGLOBIN 14.7 g/dL (13.5-17.0)
[2020-01-04 04:32] LABS: PLATELET COUNT 75 10^3/uL (150-450)
[2020-01-04] MEDS ORDERED: NOREPINEPHRINE BITARTRATE INJ/PF 4 MG/4 ML SDV IV ONE (04:51)
[2020-01-04] MEDS: DEXTROSE 5%-WATER 250 ML with NOREPINEPHRINE BITARTRATE 4 MG IV PRN ×2 (05:02)
[2020-01-04 06:02] LABS: PHOSPHORUS 3.3 mg/dL (2.5-4.5)
[2020-01-04] MEDS: NICOTINE 14 MG/24 HR PATCH.TD24 TD SCH (09:51)
[2020-01-04] MEDS ORDERED: PANTOPRAZOLE SODIUM 40 MG VIAL IV ONE (09:59)
[2020-01-04] MEDS: NORMAL SALINE 100 ML with PANTOPRAZOLE SODIUM 80 MG IV PRN ×4 (10:03→18:37)
[2020-01-04] MEDS: MIDODRINE HCL 5 MG TABLET PO SCH ×3 (10:04→18:38)
[2020-01-04] MEDS: DIGOXIN 0.25 MG TABLET PO SCH (10:04)
[2020-01-04] MEDS: FLUTICASONE/UMECLIDIN/VILANTER 100-62.5-25 MCG/DOSE IH SCH (10:14)
[2020-01-04] MEDS: CARVEDILOL 6.25 MG TABLET PO SCH ×2 (10:42→21:55)
--- NOTE | 2020-01-04 15:44 | RADIOLOGY REPORT (SQ) ---
EXAM DESCRIPTION: NM GI BLEED SCAN IMAGES COMPLETED DATE/TIME: 01/04/2020 3:24 pm REASON FOR STUDY: GI bleed COMPARISON: None. RADIONUCLIDE AND DOSE: 26.8 millicuries Technetium-labeled red blood cells. The route of agent administration: Intravenous. TECHNIQUE: Serial arterial-phase images acquired for 80 seconds immediately following injection of r adionuclide. Additional 60 images acquired at 60 seconds per image. LIMITATIONS: None. FINDINGS: Flow images without focal areas of abnormal radionuclide location. Serial images show act ivity in the bowel which begins in the right upper quadrant and progresses to the left side of the ab domen and into the lower abdomen via peristalsis. IMPRESSION: EVIDENCE OF ACTIVE GASTROINTESTINAL BLEEDING. POINT OF ORIGIN IS IN THE RIGHT UPPER LEONID DRANT. TECHNICAL DOCUMENTATION: JOB ID: [id number] 2010 [employer]- All Rights Reserved Reading location - IP/workstation name: [email or web address]
[2020-01-04 15:52] LABS: HEMATOCRIT 37.8 % (37.9-51.0); HEMOGLOBIN 13.1 g/dL (13.5-17.0); MEAN CORPUSCULAR HGB CONC 34.7 g/dL (32.0-36.0); MEAN CORPUSCULAR VOLUME 92 fl (80-97); RED BLOOD COUNT 4.09 10^6/uL (4.35-5.55); RED CELL DISTRIBUTION WIDTH 14.8 % (11.5-14.0); WHITE BLOOD COUNT 19.1 10^3/uL (4.0-10.5)
[2020-01-04 16:15] LABS: PLATELET COUNT 75 10^3/uL (150-450)
[2020-01-04] MEDS ORDERED: VASOPRESSIN INJ 20 UNIT/1 ML VIAL ONE (18:21)
[2020-01-04] MEDS ORDERED: NORMAL SALINE 250 ML IV PRN ×2 (18:37)
[2020-01-04] MEDS: DOPAMINE HCL/DEXTROSE 5%-WATER 800 MG/250 ML RTUINJ IV PRN (18:37)
[2020-01-04] MEDS ORDERED: DEXTROSE 5%-WATER 250 ML with VASOPRESSIN 100 UNIT IV PRN ×2 (18:49)
[2020-01-04] MEDS ORDERED: FENTANYL CITRATE INJ/PF 100 MCG/2 ML AMPUL ONE (19:11)
[2020-01-04] MEDS ORDERED: DIPHENHYDRAMINE HCL 50 MG/ML VIAL ONE (19:11)
[2020-01-04] MEDS ORDERED: ONDANSETRON HCL INJ/PF 4 MG/2 ML SDV ONE (19:11)
[2020-01-04] MEDS ORDERED: NALOXONE HCL INJ/PF 0.4 MG/1 ML SDV ONE (19:11)
[2020-01-04] MEDS ORDERED: FLUMAZENIL INJ 0.5 MG/5 ML VIAL ONE (19:12)
[2020-01-04] MEDS ORDERED: GLUCAGON,HUMAN RECOMB 1 MG INJ ONE (19:12)
[2020-01-04] MEDS ORDERED: EPINEPHRINE INJ 1 MG/10 ML DISP.SYRIN ONE (19:12)
[2020-01-04] MEDS ORDERED: MIDAZOLAM 2 MG/2 ML INJ ONE (19:12)
[2020-01-04 19:37] LABS: HEMATOCRIT 34.5 % (37.9-51.0); HEMOGLOBIN 12.2 g/dL (13.5-17.0); MEAN CORPUSCULAR HEMOGLOBIN 32.4 pg (27.0-33.4); MEAN CORPUSCULAR HGB CONC 35.3 g/dL (32.0-36.0); MEAN CORPUSCULAR VOLUME 92 fl (80-97); RED BLOOD COUNT 3.76 10^6/uL (4.35-5.55); RED CELL DISTRIBUTION WIDTH 14.6 % (11.5-14.0); WHITE BLOOD COUNT 19.9 10^3/uL (4.0-10.5)
[2020-01-04] MEDS: MIDAZOLAM 2 MG/2 ML INJ ONE ×2 (19:41→19:51)
[2020-01-04 20:06] LABS: PLATELET COUNT 73 10^3/uL (150-450)
--- NOTE | 2020-01-04 20:20 | PDOC CONSULTATION ---
Consultation Consult Date: 01/04/20 Provider Consulted: GILMA TAVERAS History of Present Illness Admission Date/PCP: 12/24/19 23:01 [facility] History of Present Illness: LORIE OLIVIA is a 69 year old male Patient who was admitted on 12/25/2019 with CHF and chronic anemia. Consultation was requested by Dr. Brizuela for active GI bleeding noted on a bleeding scan performed today. There was evidence of bleeding in the right upper quadrant. He actually had an EGD yesterday by Dr. Vila showing active bleeding at the duodenal ulcer. This was injected with epinephrine. He continues to receive IV Protonix. He had been having maroon- colored stool all day today though he has been able to maintain his hemoglobin w hich was 14 this morning and was 12 just before the EGD tonight. It was 6.9 early on yesterday. He has thrombocytopenia with a platelet count of 73. He was on Plavix prior to being admitted. Past Medical History Cardiac Medical History: Reports: Congestive Heart Failure, Myocardial Infarction, Hyperlipidema, Hypertension Pulmonary Medical History: Reports: Chronic Obstructive Pulmonary Disease (COPD) Neurological Medical History: Denies: Seizures GI Medical History: Reports: Gastroesophageal Reflux Disease Psychiatric Medical History: Denies: Depression Past Surgical History Past Surgical History: Reports: Cardiac Catheterization - CABG, Coronary Artery Bypass Graft, Herniorrhaphy - bilateral inguinal hernia repair, Orthopedic Surgery, Pacemaker, Vascular Surgery - fem-pop Social History Smoking Status: Current Every Day Smoker Electronic Cigarette use?: No Frequency of Alcohol Use: None Hx Recreational Drug Use: No Hx Prescription Drug Abuse: No - Advance Directive Resuscitation Status: Do Not Resuscitate Family History Family History: Reviewed & Not Pertinent Parental Family History Reviewed: No Children Family History Reviewed: NA Sibling(s) Family History Reviewed.: NA Medication/Allergy Home Medications: Carvedilol 25 mg PO Q12 10/22/19 Clopidogrel Bisulfate [Plavix 75 mg Tablet] 75 mg PO DAILY 10/22/19 Digoxin [Lanoxin 0.25 mg Tablet] 0.25 mg PO DAILY 10/22/19 Isosorbide Mononitrate [Imdur 30 mg Tablet.er] 30 mg PO DAILY 10/22/19 Nitroglycerin [Nitrostat 0.4 mg (1/150 Gr) Tabs 25/Bottle] 0.4 mg SL Q5MP PRN 10/22/19 Rosuvastatin Calcium [Crestor] 20 mg PO QHS 10/22/19 Tiotropium Br/Olodaterol HCl [Stiolto Respimat Inhal [place]] 2 puff IH DAILY 10/22/19 Tiotropium Addy [Spiriva Handihaler 5 Cap/Kit (18 Mcg/Cap)] 1 cap IH DAILY 10/22/19 Valsartan [Diovan 80 mg Tablet] 40 mg PO DAILY 10/22/19 Allergies/Adverse Reactions: No Known Allergies Allergy (Verified 11/11/19 20:49) Review of Systems All systems: reviewed and no additional remarkable complaints except as stated Physical Exam Vital Signs: Temp Pulse Resp BP Pulse Ox 98.4 F 78 31 H 91/51 L 100 01/04/20 16:00 01/04/20 19:56 01/04/20 19:40 01/04/20 19:40 01/04/20 19:40 Intake & Output 01/03/20 01/04/20 01/05/20 06:59 06:59 06:59 Intake Total 113 1619 216 Output Total 1050 1740 160 Balance -937 -121 56 Weight 45.4 kg 43.5 kg Exam: General: Patient is alert and was moaning in some pain. HEENT: There is some pallor but no jaundice. PERRLA. Oropharynx normal Respiratory: No chest deformity. No respiratory distress. Chest wall palpitation was unremarkable. Breath sounds were decreased bilaterally Cardiovascular: Heart sounds 1 and 2 normal with no murmurs. Abdominal: Not distended. Abdomen was very firm and there was a long midline scar. Liver and spleen not palpable. No ascites demonstrated. Bowel sounds active. Rectal examination was deferred. Extremities: No edema Neurological: Not fully examined Skin: No significant rash Psychological: Normal affect Results Laboratory Results: 01/04/20 19:24 01/04/20 03:43 01/03/20 01/04/20 01/04/20 05:25 03:43 03:43 WBC 11.5 H RBC 4.56 Hgb 14.7 D Hct 41.7 MCV 92 MCH 32.2 MCHC 35.2 RDW 14.7 H Plt Count 75 L Seg Neutrophils % 85.6 H Sodium 133.4 L Potassium 5.2 H Chloride 96 L Carbon Dioxide 31 H Anion Gap 6 BUN 116 H Creatinine 1.75 H Est GFR ( Amer) 47 L Glucose 147 H Calcium 8.4 Phosphorus Magnesium Total Bilirubin 1.4 H AST 103 H Alkaline Phosphatase 237 H Total Protein 5.1 L Albumin 2.7 L Blood Type B POSITIVE Antibody Screen NEGATIVE 01/04/20 01/04/20 01/04/20 03:43 15:33 19:24 WBC 19.1 H 19.9 H RBC 4.09 L 3.76 L Hgb 13.1 L 12.2 L Hct 37.8 L 34.5 L MCV 92 92 MCH 32.0 32.4 MCHC 34.7 35.3 RDW 14.8 H 14.6 H Plt Count 75 L 73 L Seg Neutrophils % Sodium Potassium Chloride Carbon Dioxide Anion Gap BUN Creatinine Est GFR ( Amer) Glucose Calcium Phosphorus 3.3 Magnesium 2.8 H Total Bilirubin AST Alkaline Phosphatase Total Protein Albumin Blood Type Antibody Screen 12/24/19 12/25/19 12/25/19 21:19 02:36 09:38 Creatine Kinase Troponin I 0.043 0.045 0.045 NT-Pro-B Natriuret Pep [id number] H 12/26/19 12/26/19 09:20 09:20 Creatine Kinase 47 L Troponin I 0.040 NT-Pro-B Natriuret Pep [id number] H Impressions: Head CT 12/24/19 20:48 IMPRESSION: 1. No acute intracranial findings. 2. Senescent changes with chronic microvascular ischemia and old lacunar infarcts. Chest X-Ray 12/29/19 00:00 IMPRESSION: Right internal jugular catheter as described. Improving right lower lobe pneumonia. GI Bleed Scan Nuclear Medicine 01/04/20 00:00 IMPRESSION: EVIDENCE OF ACTIVE GASTROINTESTINAL BLEEDING. POINT OF ORIGIN IS IN THE RIGHT UPPER QUADRANT. Assessment & Plan - Diagnosis (1) Acute GI hemorrhage Is this a current diagnosis for this admission?: Yes Plan: Duodenal ulcer with active bleeding was identified yesterday and this was injected. Apparently this is still bleeding based on the bleeding scan. The need for repeat urgent EGD and bleeding control was explained to the patient and he is in agreement. He has been requiring pressors all day. (2) Duodenal ulcer Is this a current diagnosis for this admission?: Yes (3) Anemia due to GI blood loss Is this a current diagnosis for this admission?: Yes (4) Thrombocytopenia Is this a current diagnosis for this admission?: Yes
--- NOTE | 2020-01-04 20:24 | Operative Report ---
Operative Report DATE OF SURGERY: 01/04/20 Operative Report: Pre-op diagnosis: GI bleed and positive bleeding scan Post-op diagnosis: 1. Duodenal bulb ulcer with active bleeding 2. Antral gastritis Surgery: Esophagogastroduodenoscopy with epinephrine injection, cauterization, and biopsy Medications: Versed mg 1.5 mg IV Tissue removed: Antral and gastric body biopsy for pathology Procedure: After informed consent obtained from patient, the throat was sprayed with Hurricane and conscious sedation was achieved. The upper endoscope was inserted into the esophagus under direct vision and advanced into the stomach. The duodenum was entered and examined to the second part. Endoscope was then slowly pulled out of the patient as the mucosa was examined into details. Patient tolerated procedure well. Findings Esophagus: Normal Z-line at: 36 cm Antrum: Mild erythema Body: Normal Fundus: Normal Duodenum first part: A 15 to 17 mm ulcer was noted at the junction between the first and second part of duodenum. There was a visible vessel with active arterial bleeding. The base of the ulcer was then injected with epinephrine 1 in 10,000 mixed [id number] with normal saline. The bleeding site was also cauterized. There was no bleeding at the end of the procedure. Duodenum second part: Normal Plan: Await pathology. Continue IV Protonix and repeat EGD in 6 to 8 weeks to confirm healing OPERATION: .
--- NOTE | 2020-01-04 20:51 | Progress Note ---
Provider Note Provider Note: CARDIOLOGY PROGRESS NOTE by Dr. Alicia Brizuela on 01/04/2020. OBJECTIVE: Summarization of the events of today. The patient this morning was stable with a hemoglobin of 14.5. The patient is off Levophed. He was on dopamine at 5 mcg/kg/min. Attempts to wean him off the dopamine causes the patient's blood pressure to drop. He subsequently started having more maroon-colored stools and abdominal cramping. A GI bleeding scan showed that the was ongoing bleeding in the right upper quadrant of the abdomen. At this time he was started also on vasopressin at 0.01 units/h/min. Subsequently he was also placed on Levophed to help facilitate possible repeat endoscopy. Dr. San was consulted and he did come in and under sedation with Versed the patient underwent successful upper endoscopy and the site of GI bleed found in the duodenal bulb and this was injected. The bleeding stopped. Subsequently the patient's Levophed was weaned off. The patient is on dopamine at 5 mcg/kg/min and vasopressin at 0.8units/min. The patient is at present asleep but when awakened is appropriate. He denies any chest pain or discomfort. His abdominal cramping is much less now after the cauterization was done. The patient will pay ongoing GI bleed and the platelets being 70 5K and 1 unit of platelets was also ordered. We will periodically check his CBC to make sure that he does not drop his hemoglobin again.. Please see Dr. San's note. There is no ventricle arrhythmia seen on the monitor. There is no firing of his AICD. During the endoscopic procedure a magnet was placed on the patient's defibrillator so that there was no inadvertent shocks to the healthcare providers involved in the endoscopy procedure. PHYSICAL EXAMINATION: Patient appears to be chronically ill malnourished and emaciated. After the endoscopic procedure at 10:10 PM the patient's heart rate is 66 bpm. Blood pressure 157/74 on vasopressin and 5 micro grams per kilogram per minute of dopamine. His respirations are 19/min O2 sats 97% on room air. HEAD: Is atraumatic normocephalic. EYES: Pupils are equal round regular reactive to light and accommodation. Extraocular movements are normal. There is no conjunctival pallor. There is no scleral icterus. EARS: Tympanic membranes are intact. External auditory canals are clear. NOSE: There is no deviated nasal septum. There is no inflammation of the nasal mucous membrane. MOUTH: Mucous membranes of mouth are dry tongue is still dry. THROAT: There is no redness of the oropharynx. There is no exudates. 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 There is no catie-care ecchymosis. NECK: Supple. There is mild JVD present. Carotids are equal there is no bruit. There is no lymphadenopathy. There is no goiter. There is no accessory muscle respiration use. Trachea central. LUNGS: Shows diminished air entry prolonged expiration there is bibasilar rales of CHF. There is no rhonchi or wheezing. There is no chest wall tenderness on palpation. On palpation there is hyperresonance. There is bibasilar rales of heart failure. HEART: S1-S2 is heard. There is no S3 gallop. There is no S4 gallop there is systolic murmur left sternal border and the apex there is no rub. ABDOMEN: Soft. There is no paraspinal megaly. Bowel sounds are hyperactive. There is no hepatosplenomegaly. EXTREMITIES: There is diminished bilateral femoral pulses with bruits. There is a scar in the left lower extremity from his left femoral- popliteal bypass surgery. He has bilateral femoral bruits present. Leg pulses are diminished. There is no pedal edema bilaterally. There is no DVT or cellulitis. There is no cyanosis or clubbing. CITY SANITARIAN: The patient is asleep, but when aroused/awaken he is oriented x3 with no focal deficits. PSYCHIATRIC: Patient is a patient judgment insight are intact his affect is normal, he is not agitated or anxious. The patient's 24-hour intake is been 1619 mL. His 24-hour output is 1740 mL. Labs- All tests 24 hr 01/03/20 01/04/20 01/04/20 05:25 03:43 03:43 WBC 11.5 H RBC 4.56 Hgb 14.7 D Hct 41.7 MCV 92 MCH 32.2 MCHC 35.2 RDW 14.7 H Plt Count 75 L Lymph % (Auto) 6.7 L [place] % (Auto) 7.3 Eos % (Auto) 0.0 Baso % (Auto) 0.4 Absolute Neuts (auto) 9.8 H Absolute Lymphs (auto) 0.8 Absolute Monos (auto) 0.8 Absolute Eos (auto) 0.0 Absolute Basos (auto) 0.0 Seg Neutrophils % 85.6 H Sodium 133.4 L Potassium 5.2 H Chloride 96 L Carbon Dioxide 31 H Anion Gap 6 BUN 116 H Creatinine 1.75 H Est GFR ( Amer) 47 L Est GFR (MDRD) Non-Af 39 L Glucose 147 H Calcium 8.4 Phosphorus Magnesium Total Bilirubin 1.4 H Direct Bilirubin 0.7 H Neonat Total Bilirubin Not Reportable Neonat Direct Bilirubin Not Reportable Neonat Indirect Bili Not Reportable AST 103 H ALT 89 H Alkaline Phosphatase 237 H Total Protein 5.1 L Albumin 2.7 L Blood Type B POSITIVE Blood Type Confirm B POSITIVE Antibody Screen NEGATIVE Crossmatch See Detail 01/04/20 01/04/20 01/04/20 03:43 15:33 19:24 WBC 19.1 H 19.9 H RBC 4.09 L 3.76 L Hgb 13.1 L 12.2 L Hct 37.8 L 34.5 L MCV 92 92 MCH 32.0 32.4 MCHC 34.7 35.3 RDW 14.8 H 14.6 H Plt Count 75 L 73 L Lymph % (Auto) [place] % (Auto) Eos % (Auto) Baso % (Auto) Absolute Neuts (auto) Absolute Lymphs (auto) Absolute Monos (auto) Absolute Eos (auto) Absolute Basos (auto) Seg Neutrophils % Sodium Potassium Chloride Carbon Dioxide Anion Gap BUN Creatinine Est GFR ( Amer) Est GFR (MDRD) Non-Af Glucose Calcium Phosphorus 3.3 Magnesium 2.8 H Total Bilirubin Direct Bilirubin Neonat Total Bilirubin Neonat Direct Bilirubin Neonat Indirect Bili AST ALT Alkaline Phosphatase Total Protein Albumin Blood Type Blood Type Confirm Antibody Screen Crossmatch Chest X-Ray 12/24/19 19:50 IMPRESSION: New right basilar airspace consolidative change, suspicious for pneumonia. Head CT 12/24/19 20:48 IMPRESSION: 1. No acute intracranial findings. 2. Senescent changes with chronic microvascular ischemia and old lacunar infarcts. Chest X-Ray 12/28/19 00:00 IMPRESSION: 1. New right pleural effusion since 12/24/2019, with worsening right pulmonary infiltrate, likely pneumonia. Chest X-Ray 12/29/19 00:00 IMPRESSION: Right internal jugular catheter as described. Improving right lower lobe pneumonia. GI Bleed Scan Nuclear Medicine 01/04/20 00:00 IMPRESSION: EVIDENCE OF ACTIVE GASTROINTESTINAL BLEEDING. POINT OF ORIGIN IS IN THE RIGHT UPPER QUADRANT. IMPRESSION/RECOMMENDATION: 1. Acute anemia: The patient again dropped his hemoglobin to 6.9. Early this morning he was given 2 units of blood transfusion. Subsequently the patient again became hypotensive and had taylor hematochezia. He was again given 2 more units of blood and surgical his consult was obtained with Dr. Vila. The patient had NG tube placed which showed blood in the NG tube hence there is an upper GI bleed. The patient underwent endoscopy in the ICU under local and sedation. The patient tolerated the procedure well. A bleeding duodenal ulcer was found although the bleeding is stopped the ulcer was injected with epinephrine. The patient again had recurrence of upper GI bleed confirmed with the GI bleed scan. Dr. San endoscope the patient and cauterize the bleeding site at the duodenal bulb area. The patient did also get platelet transfusion. The patient's Entresto, beta-abhishek, Prozac and all his medications were discontinued. 2. Acute on chronic systolic heart failure. His milrinone was discontinued due to hypotension. The patient became hypotensive after his dopaminwas weaned off hence the patient was back on the dopamine and also Levophed. This was to help facilitate the endoscopy. The patient now off Levophed is off the vasopressin and dopamine. His Entresto and Coreg have been held. Will check a dig level in the morning. 3. Severe mitral regurgitation. 4. Severe tricuspid regurgitation 5. Severe pulmonary hypertension. 6. DIlated cardiomyopathy and ischemic cardiomyopathy with severely reduced LV ejection fraction. Please refer to treatment outlined above. 7.. COPD: At present no acute exacerbation. Will change albuterol nebulizer treatment to Xopenex treatment 8. Coronary artery disease. History of old myocardial infarction and history of coronary bypass graft surgery. No anginal symptoms. Continue anti-CAD medication, as being down now. 9. History of hypertension: Blood pressure well controlled 10. History of AICD: No firing of his AICD recently. 11. Peripheral vascular disease: History of recent past history of left femoropopliteal bypass surgery. 12 History of pancytopenia 13. Tobacco abuse disorder. We will continue the patient on NicoDerm patch 14. History of facial skin cancer. The patient will be requiring radiation treatment as per Dr. Domingo, radiation oncologist in [place]. 15. Elevated digoxin level without any evidence of digitoxicity. Dig level back to normal. Will resume the patient digoxin. 16. Upper GI bleed. There is recurrent upper GI bleed with hematochezia. Endoscopic procedures done by Dr. San with cauterization of the bleeding site at the duodenal bulb. We will watch the patient's hemoglobin periodically and transfuse as needed. 17. Hypotension: Resolved on inotropes. We will try to wean the patient off dopamine and vasopressin. The patient's son Mr. Jeremi Phillips, and the patient's daughter Ms. Edith Treviño were contacted by me on the telephone and appraised of the events including upper GI bleed and the endoscopic procedure. Medications reviewed. Medications adjusted. Medical decision making is of high complexity. 60 minutes spent with patient more than 50% time spent direct patient care. I was in the room when the patient's bedside endoscopy was performed. Will follow.
[2020-01-04] MEDS: ATORVASTATIN CALCIUM 40 MG TABLET PO SCH (21:56)
[2020-01-05 04:29] LABS: HEMATOCRIT 27.3 % (37.9-51.0); MEAN CORPUSCULAR HEMOGLOBIN 32.4 pg (27.0-33.4); MEAN CORPUSCULAR HGB CONC 35.2 g/dL (32.0-36.0); MEAN CORPUSCULAR VOLUME 92 fl (80-97); PLATELET COUNT 128 10^3/uL (150-450); RED BLOOD COUNT 2.97 10^6/uL (4.35-5.55); RED CELL DISTRIBUTION WIDTH 14.5 % (11.5-14.0); WHITE BLOOD COUNT 16.3 10^3/uL (4.0-10.5)
[2020-01-05 04:31] LABS: HEMOGLOBIN 9.6 g/dL (13.5-17.0)
[2020-01-05 04:58] LABS: ALBUMIN 2.4 g/dL (3.5-5.0); ALKALINE PHOSPHATASE 160 U/L (38-126); ANION GAP 11 (5-19); ASPARTATE AMINO TRANSFERASE 60 U/L (17-59); BILIRUBIN,DIRECT 0.6 mg/dL (0.0-0.4); BILIRUBIN,TOTAL 1.3 mg/dL (0.2-1.3); CARBON DIOXIDE 27 mmol/L (22-30); CHLORIDE 97 mmol/L (98-107); GLUCOSE 122 mg/dL (75-110); POTASSIUM 4.5 mmol/L (3.6-5.0); TOTAL PROTEIN 4.5 g/dL (6.3-8.2)
[2020-01-05 05:07] LABS: BLOOD UREA NITROGEN 128 mg/dL (7-20); CALCIUM 8.6 mg/dL (8.4-10.2)
[2020-01-05] MEDS: NORMAL SALINE 100 ML with PANTOPRAZOLE SODIUM 80 MG IV PRN ×4 (05:19→15:56)
[2020-01-05 05:36] LABS: DIGOXIN 2.97 ng/mL (0.8-2.0)
--- NOTE | 2020-01-05 08:25 | RADIOLOGY REPORT (SQ) ---
EXAM DESCRIPTION: CHEST SINGLE VIEW IMAGES COMPLETED DATE/TIME: 01/05/2020 6:07 am REASON FOR STUDY: chf / cm COMPARISON: 12/29/2019 EXAM PARAMETERS: NUMBER OF VIEWS: One view. TECHNIQUE: Single frontal radiographic view of the chest acquired. RADIATION DOSE: NA LIMITATIONS: None. FINDINGS: LUNGS AND PLEURA: Improving right basilar aeration with persistent patchy opacities. Trac e right effusion Unremarkable left hemithorax. No pneumothorax. MEDIASTINUM AND HILAR STRUCTURES: Stable. HEART AND VASCULAR STRUCTURES: Stable. BONES: No acute findings. HARDWARE: Right internal jugular central venous catheter tip overlies SVC. Left-sided cardiac pacer, stable. OTHER: No other significant finding. IMPRESSION: Improved but persistent patchy right basilar airspace disease and trace effusion. TECHNICAL DOCUMENTATION: JOB ID: [id number] 2010 [email or web address]- All Rights Reserved Reading location - IP/workstation name: [email or web address]
[2020-01-05] MEDS: DIGOXIN 0.25 MG TABLET PO SCH (09:12)
[2020-01-05] MEDS: MIDODRINE HCL 5 MG TABLET PO SCH ×3 (09:12→18:01)
[2020-01-05] MEDS: NICOTINE 14 MG/24 HR PATCH.TD24 TD SCH (09:12)
[2020-01-05] MEDS: FLUTICASONE/UMECLIDIN/VILANTER 100-62.5-25 MCG/DOSE IH SCH (09:13)
[2020-01-05] MEDS: CARVEDILOL 6.25 MG TABLET PO SCH ×2 (09:17→22:02)
--- NOTE | 2020-01-05 13:33 | Progress Note ---
Provider Note Provider Note: CARDIOLOGY PROGRESS NOTE by Dr. Alicia Brizuela on 01/05/2020. Subjective: The patient states he feels better than yesterday. He has dark tarry stools but no hematochezia. He denies any chest pain or discomfort. There is no shortness of breath there is no PND orthopnea. His urine output was found to be declining but also there is a leak from the Serrano catheter. This has been set right. There is no firing of his AICD. Although the patient's digoxin level is elevated the patient has no symptoms or signs of digitoxicity. There is no TIA CVA symptoms. PHYSICAL EXAMINATION: The patient appears to be chronically ill and malnourished. He appears emaciated. Selected Entries 01/05/20 01/05/20 14:45 16:00 Core 97.0 F Temperature Heart Rate ( 65 Monitors) Respiratory 20 22 H Rate Blood Pressure 152/60 H [Right Upper Arm] Blood Pressure 90 Mean [Right Upper Arm] Blood Pressure Supine Position [Right Upper Arm] O2 Sat by Pulse 98 95 Oximetry Oxygen Delivery Room Air Method ( includes room air) HEAD: Is atraumatic normocephalic. EYES: Pupils are equal round regular reactive to light and accommodation. Extraocular movements are normal. There is no conjunctival pallor. There is no scleral icterus. EARS: Tympanic membranes are intact. External auditory canals are clear. NOSE: There is no deviated nasal septum. There is no inflammation of the nasal mucous membrane. MOUTH: Mucous membranes of mouth are dry tongue is still dry. THROAT: There is no redness of the oropharynx. There is no exudates. 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 There is no catie-care ecchymosis. NECK: Supple. There is mild JVD present. Carotids are equal there is no bruit. There is no lymphadenopathy. There is no goiter. There is no accessory muscle respiration use. Trachea central. LUNGS: Shows diminished air entry prolonged expiration there is bibasilar rales of CHF. There is no rhonchi or wheezing. There is no chest wall tenderness on palpation. On palpation there is hyperresonance. There is bibasilar rales of heart failure. HEART: S1-S2 is heard. There is no S3 gallop. There is no S4 gallop there is systolic murmur left sternal border and the apex there is no rub. ABDOMEN: Soft. There is no paraspinal megaly. Bowel sounds are hyperactive. There is no hepatosplenomegaly. EXTREMITIES: There is diminished bilateral femoral pulses with bruits. There is a scar in the left lower extremity from his left femoral- popliteal bypass surgery. He has bilateral femoral bruits present. Leg pulses are diminished. There is no pedal edema bilaterally. There is no DVT or cellulitis. There is no cyanosis or clubbing. CATHEAD WORKER: The patient is asleep, but when aroused/awaken he is oriented x3 with no focal deficits. PSYCHIATRIC: Patient is a patient judgment insight are intact his affect is normal, he is not agitated or anxious. The patient's 24-hour intake is been 1619 mL. His 24-hour output is 1740 mL. IMPRESSION/RECOMMENDATION: 1. Acute anemia: The patient's Hemoglobin this morning was 9.6. Will recheck later to make sure that there is no ongoing decline in the patient's hemoglobin. There is no evidence of ongoing bleeding at present. The patient is dark tarry stools but no hematochezia. He denies any chest pain or abdominal pain. 2. Acute on chronic systolic heart failure. The patient now off Levophed is off the vasopressin and dopamine. His Entresto and Coreg have been held. Will check a dig level in the morning. In view of the patient's renal status we will restart the patient on dobutamine at 2.5 mcg/kg/min. 3. Severe mitral regurgitation, and severe tricuspid regurgitation.. 4. Elevated digoxin level. We will discontinue the patient's digoxin for now. 5. Severe pulmonary hypertension 6. DIlated cardiomyopathy and ischemic cardiomyopathy with severely reduced LV ejection fraction. Please refer to treatment outlined above. 7.. COPD: At present no acute exacerbation. Will change albuterol nebulizer treatment to Xopenex treatment 8. Coronary artery disease. History of old myocardial infarction and history of coronary bypass graft surgery. No anginal symptoms. Continue anti-CAD medication, as being down now. 9. History of hypertension: Blood pressure well controlled 10. History of AICD: No firing of his AICD recently. 11. Peripheral vascular disease: History of recent past history of left femoropopliteal bypass surgery. 12 acute renal failure. This is probably a combination of blood in the gut and also due to several hypotensive episodes. We will watch the patient's urine output. We will reinsert the patient's Lasix. 13. Tobacco abuse disorder. We will continue the patient on NicoDerm patch 14. History of pancytopenia. 15. Elevated digoxin level without any evidence of digitoxicity. Dig level back to normal. Will resume the patient digoxin. 16. Upper GI bleed. There is recurrent upper GI bleed with hematochezia. Endoscopic procedures done by Dr. San with cauterization of the bleeding site at the duodenal bulb. We will watch the patient's hemoglobin periodically and transfuse as needed. Note there is no further evidence of acute ongoing bleed. 17. Hypotension: Resolved on inotropes. The patient is off the dopamine and vasopressin. 18.History of facial skin cancer. The patient will be requiring radiation treatment as per Dr. Domingo, radiation oncologist in [place]. Medications reviewed. Medications adjusted. Medical decision making is of high complexity. 50 minutes spent with patient more than 50% time spent direct patient care. I was in the room when the patient's bedside endoscopy was performed. Will follow. Addendum the patient's hemoglobin came up to 8.9 and hence it has dropped. We will give the patient 1 unit of packed RBCs to keep hemoglobin closer to 10 or above.
[2020-01-05] MEDS: DOBUTAMINE HCL/D5W 500 MG/250 ML RTUINJ IV PRN (15:57)
[2020-01-05] MEDS ORDERED: FUROSEMIDE INJ/PF 40 MG/4 ML SDV IV ONE (16:00)
[2020-01-05 16:38] LABS: HEMATOCRIT 25.4 % (37.9-51.0); HEMOGLOBIN 8.9 g/dL (13.5-17.0); MEAN CORPUSCULAR HEMOGLOBIN 32.5 pg (27.0-33.4); MEAN CORPUSCULAR HGB CONC 35.1 g/dL (32.0-36.0); MEAN CORPUSCULAR VOLUME 92 fl (80-97); PLATELET COUNT 118 10^3/uL (150-450); RED BLOOD COUNT 2.75 10^6/uL (4.35-5.55); WHITE BLOOD COUNT 15.2 10^3/uL (4.0-10.5)
[2020-01-05 17:01] LABS: ABSOLUTE LYMPHOCYTES# (MANUAL) 0.2 10^3/uL (0.5-4.7); ABSOLUTE MONOCYTES # (MANUAL) 0.5 10^3/uL (0.1-1.4); ANISOCYTOSIS SLIGHT; BAND NEUTROPHILS % (MANUAL) 2 % (3-5); BASOPHILS % (MANUAL) 0 % (0-2); EOSINOPHILS % (MANUAL) 0 % (0-6); LYMPHOCYTES % (MANUAL) 1 % (13-45); MONOCYTES % (MANUAL) 3 % (3-13); PLATELET COMMENT ADEQUATE; SEGMENTED NEUTROPHILS % (MAN) 94 % (42-78); TOTAL CELLS COUNTED 100
[2020-01-05] MEDS ORDERED: NORMAL SALINE 250 ML IV PRN ×2 (17:26)
[2020-01-05] MEDS: PHARMACY COMMUNICATION ORDER MC SCH (19:34)
[2020-01-05] MEDS ORDERED: FUROSEMIDE INJ/PF 40 MG/4 ML SDV IV PRN (20:59)
[2020-01-06] MEDS: NORMAL SALINE 100 ML with PANTOPRAZOLE SODIUM 80 MG IV PRN ×6 (02:45→21:36)
[2020-01-06 04:23] LABS: HEMATOCRIT 28.8 % (37.9-51.0); HEMOGLOBIN 10.3 g/dL (13.5-17.0); MEAN CORPUSCULAR HEMOGLOBIN 33.2 pg (27.0-33.4); MEAN CORPUSCULAR HGB CONC 35.9 g/dL (32.0-36.0); MEAN CORPUSCULAR VOLUME 93 fl (80-97); RED BLOOD COUNT 3.11 10^6/uL (4.35-5.55); RED CELL DISTRIBUTION WIDTH 14.5 % (11.5-14.0); WHITE BLOOD COUNT 10.5 10^3/uL (4.0-10.5)
[2020-01-06 04:36] LABS: ALBUMIN 2.3 g/dL (3.5-5.0); ALKALINE PHOSPHATASE 173 U/L (38-126); ANION GAP 8 (5-19); ASPARTATE AMINO TRANSFERASE 89 U/L (17-59); BILIRUBIN,DIRECT 0.6 mg/dL (0.0-0.4); BILIRUBIN,TOTAL 1.1 mg/dL (0.2-1.3); BLOOD UREA NITROGEN 114 mg/dL (7-20); CALCIUM 8.2 mg/dL (8.4-10.2); CARBON DIOXIDE 30 mmol/L (22-30); CHLORIDE 101 mmol/L (98-107); GLUCOSE 97 mg/dL (75-110); POTASSIUM 3.7 mmol/L (3.6-5.0); TOTAL PROTEIN 4.5 g/dL (6.3-8.2)
[2020-01-06 05:15] LABS: PLATELET COUNT 76 10^3/uL (150-450)
[2020-01-06] MEDS: CARVEDILOL 6.25 MG TABLET PO SCH ×2 (10:43→21:34)
[2020-01-06] MEDS: FUROSEMIDE 40 MG TABLET PO SCH ×2 (10:43→21:34)
[2020-01-06] MEDS: MIDODRINE HCL 5 MG TABLET PO SCH ×3 (10:43→18:04)
[2020-01-06] MEDS: FLUTICASONE/UMECLIDIN/VILANTER 100-62.5-25 MCG/DOSE IH SCH (10:45)
[2020-01-06] MEDS: NICOTINE 14 MG/24 HR PATCH.TD24 TD SCH (10:45)
[2020-01-06] MEDS: SACUBITRIL/VALSARTAN 24 MG/26 MG TABLET PO SCH ×2 (10:48→21:36)
[2020-01-06 16:34] LABS: HEMATOCRIT 25.5 % (37.9-51.0); MEAN CORPUSCULAR HEMOGLOBIN 32.9 pg (27.0-33.4); MEAN CORPUSCULAR HGB CONC 35.5 g/dL (32.0-36.0); MEAN CORPUSCULAR VOLUME 93 fl (80-97); RED BLOOD COUNT 2.75 10^6/uL (4.35-5.55); RED CELL DISTRIBUTION WIDTH 14.7 % (11.5-14.0); WHITE BLOOD COUNT 7.9 10^3/uL (4.0-10.5)
[2020-01-06 17:02] LABS: PLATELET COUNT 65 10^3/uL (150-450)
[2020-01-06] MEDS: PHARMACY COMMUNICATION ORDER MC SCH (18:04)
--- NOTE | 2020-01-06 18:49 | Progress Note ---
Provider Note Provider Note: CARDIOLOGY PROGRESS NOTE by Dr. Alicia Brizuela on 01/06/2020. Subjective: The patient states he feels better. Although there is still some liquid stools which is slightly dark there is no maroon-colored stools. The patient denies any abdominal pain. There is no complains of angina or shortness of breath or PND orthopnea. His intake is still poor. He is tolerating clear liquids. His hemoglobin this morning was 10.3. There is no firing of his AICD. There is no atrial or ventricular arrhythmias seen on the monitor. We will recheck the patient's hemoglobin and if it remains 10 or above then will transfer the patient out. The patient's Entresto and Coreg have been restarted. He is also on dobutamine at 2.5 mcg/kg/min. He is also on IV Lasix. PHYSICAL EXAMINATION: The patient appears to be chronically ill and malnourished. He is emaciated. But in no acute distress. He is awake alert oriented x3. Selected Entries 01/06/20 01/06/20 01/06/20 09:45 09:46 10:00 Core 97.2 F Temperature Heart Rate ( 60 Monitors) Respiratory 16 Rate Blood Pressure 111/57 L Blood Pressure 75 Mean O2 Sat by Pulse 100 Oximetry Oxygen Delivery Room Air Method ( includes room air) HEAD: Is atraumatic normocephalic. EYES: Pupils are equal round regular reactive to light and accommodation. Extraocular movements are normal. There is no conjunctival pallor. There is no scleral icterus. EARS: Tympanic membranes are intact. External auditory canals are clear. NOSE: There is no deviated nasal septum. There is no inflammation of the nasal mucous membrane. MOUTH: Mucous membranes of mouth are dry tongue is still dry. THROAT: There is no redness of the oropharynx. There is no exudates. 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 There is no catie-care ecchymosis. NECK: Supple. There is no JVD present. Carotids are equal there is no bruit. There is no lymphadenopathy. There is no goiter. There is no accessory muscle respiration use. Trachea central. LUNGS: Shows diminished air entry prolonged expiration there is bibasilar rales of CHF. There is no rhonchi or wheezing. There is no chest wall tenderness on palpation. On palpation there is hyperres onance. There is no bibasilar rales of heart failure. HEART: S1-S2 is heard. There is no S3 gallop. There is no S4 gallop there is systolic murmur left sternal border and the apex there is no rub. ABDOMEN: Soft. There is no hepatosplenomegaly. Bowel sounds are normal. There is no hepatosplenomegaly. EXTREMITIES: There is diminished bilateral femoral pulses with bruits. 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 He has bilateral femoral bruits present. Leg pulses are diminished. There is no pedal edema bilaterally. There is no DVT or cellulitis. There is no cyanosis or clubbing. HOSPICE VOLUNTEER: The patient is asleep, but when aroused/awaken he is oriented x3 with no focal deficits. PSYCHIATRIC: Patient is a patient judgment insight are intact his affect is normal, he is not agitated or anxious. The patient's 24-hour intake is been 318 mL. His 24-hour output is 1910 mL. Labs- All tests 24 hr 01/03/20 01/06/20 01/06/20 05:25 04:00 04:00 WBC 10.5 RBC 3.11 L Hgb 10.3 L Hct 28.8 L MCV 93 MCH 33.2 MCHC 35.9 RDW 14.5 H Plt Count 76 L Sodium 138.5 Potassium 3.7 Chloride 101 Carbon Dioxide 30 Anion Gap 8 BUN 114 H Creatinine 2.19 H Est GFR ( Amer) 36 L Est GFR (MDRD) Non-Af 30 L Glucose 97 Calcium 8.2 L Total Bilirubin 1.1 Direct Bilirubin 0.6 H Neonat Total Bilirubin Not Reportable Neonat Direct Bilirubin Not Reportable Neonat Indirect Bili Not Reportable AST 89 H ALT 63 H Alkaline Phosphatase 173 H Total Protein 4.5 L Albumin 2.3 L Crossmatch See Detail 01/06/20 16:20 WBC 7.9 RBC 2.75 L Hgb 9.0 L Hct 25.5 L MCV 93 MCH 32.9 MCHC 35.5 RDW 14.7 H Plt Count 65 L Sodium Potassium Chloride Carbon Dioxide Anion Gap BUN Creatinine Est GFR ( Amer) Est GFR (MDRD) Non-Af Glucose Calcium Total Bilirubin Direct Bilirubin Neonat Total Bilirubin Neonat Direct Bilirubin Neonat Indirect Bili AST ALT Alkaline Phosphatase Total Protein Albumin Crossmatch Chest X-Ray 12/24/19 19:50 IMPRESSION: New right basilar airspace consolidative change, suspicious for pneumonia. Head CT 12/24/19 20:48 IMPRESSION: 1. No acute intracranial findings. 2. Senescent changes with chronic microvascular ischemia and old lacunar infarcts. Chest X-Ray 12/28/19 00:00 IMPRESSION: 1. New right pleural effusion since 12/24/2019, with worsening right pulmonary infiltrate, likely pneumonia. Chest X-Ray 12/29/19 00:00 IMPRESSION: Right internal jugular catheter as described. Improving right lower lobe pneumonia. GI Bleed Scan Nuclear Medicine 01/04/20 00:00 IMPRESSION: EVIDENCE OF ACTIVE GASTROINTESTINAL BLEEDING. POINT OF ORIGIN IS IN THE RIGHT UPPER QUADRANT. Chest X-Ray 01/05/20 06:00 IMPRESSION: Improved but persistent patchy right basilar airspace disease and trace effusion. IMPRESSION/RECOMMENDATION: 1. Acute anemia: The patient hemoglobin this morning was 10.3. There is no signs of active bleeding. Will recheck the patient's hemoglobin again at 1600. If this is 10 or above then will transfer the [place] [facility] [place] 2. Acute on chronic systolic heart failure.: This seems to be compensated. The patient is on dobutamine at 2.5 mg/kg/min. He is other pressors such as vasopressin, dopamine, and Levophed have all been discontinued. The patient has been restarted on Coreg at 6.25 mg p.o. twice daily and also on Entresto at 1 p.o. twice daily. He is on IV Lasix. His milrinone is being continued at 10 mg p.o. 3 times daily. His digoxin has been discontinued. 3. Acute nonoliguric renal failure. Patient with good urine output. Partly the BUN/creatinine secondary to patient's absorption of blood from his GI tract about the ligament of Treitz. 4. Severe mitral regurgitation, and severe tricuspid regurgitation 5. Severe pulmonary hypertension. 6. DIlated cardiomyopathy and ischemic cardiomyopathy with severely reduced LV ejection fraction. Please refer to treatment outlined above. 7.. COPD: At present no acute exacerbation. Will change albuterol nebulizer treatment to Xopenex treatment 8. Coronary artery disease. History of old myocardial infarction and history of coronary bypass graft surgery. No anginal symptoms. Continue anti-CAD medication, as being down now. Due to her drop in blood pressure effect of nitrates this has been held. 9. History of hypertension: Blood pressure well controlled 10. History of AICD: No firing of his AICD recently. 11. Peripheral vascular disease: History of recent past history of left femoropopliteal bypass surgery. 12 History of pancytopenia 13. Tobacco abuse disorder. We will continue the patient on NicoDerm patch 14. History of facial skin cancer. The patient will be requiring radiation treatment as per Dr. Domingo, radiation oncologist in [place]. 15. Elevated digoxin level without any evidence of digitoxicity. We will discontinue the patient's digoxin. 16. Upper GI bleed. There is, at present, no evidence of acute ongoing bl eeding. Will observe check the patient's hemoglobin. Bleed. 17. Hypotension: Resolved on inotropes. We will try to wean the patient off dopamine and vasopressin. Medications reviewed. Medications adjusted. Medical decision making is of high complexity. 60 minutes spent with patient more than 50% time spent direct patient care. I was in the room when the patient's bedside endoscopy was pe rformed. Will follow. Will discuss with Ms. Edith lowe with the patient surrogate healthcare power of attorney at law. We will keep her appraised of the events after the 600 hemoglobin results are available.
[2020-01-06] MEDS: DOBUTAMINE HCL/D5W 500 MG/250 ML RTUINJ IV PRN (21:36)
[2020-01-07] MEDS: MORPHINE SULFATE 10 MG/ML INJ IV PRN (04:10)
[2020-01-07 04:35] LABS: HEMOGLOBIN 8.8 g/dL (13.5-17.0); MEAN CORPUSCULAR HEMOGLOBIN 32.8 pg (27.0-33.4); MEAN CORPUSCULAR HGB CONC 35.2 g/dL (32.0-36.0); MEAN CORPUSCULAR VOLUME 93 fl (80-97); RED BLOOD COUNT 2.69 10^6/uL (4.35-5.55); RED CELL DISTRIBUTION WIDTH 14.8 % (11.5-14.0); WHITE BLOOD COUNT 6.6 10^3/uL (4.0-10.5)
[2020-01-07 04:57] LABS: ALBUMIN 2.2 g/dL (3.5-5.0); ALKALINE PHOSPHATASE 190 U/L (38-126); ANION GAP 5 (5-19); ASPARTATE AMINO TRANSFERASE 157 U/L (17-59); BILIRUBIN,DIRECT 0.6 mg/dL (0.0-0.4); BILIRUBIN,TOTAL 1.1 mg/dL (0.2-1.3); BLOOD UREA NITROGEN 109 mg/dL (7-20); CARBON DIOXIDE 32 mmol/L (22-30); CHLORIDE 98 mmol/L (98-107); GLUCOSE 90 mg/dL (75-110); POTASSIUM 3.7 mmol/L (3.6-5.0); TOTAL PROTEIN 4.2 g/dL (6.3-8.2)
[2020-01-07 05:01] LABS: PLATELET COUNT 64 10^3/uL (150-450)
[2020-01-07 05:18] LABS: DIGOXIN 1.43 ng/mL (0.8-2.0)
[2020-01-07] MEDS: NORMAL SALINE 100 ML with PANTOPRAZOLE SODIUM 80 MG IV PRN ×4 (07:58→15:22)
[2020-01-07] MEDS ORDERED: NORMAL SALINE 250 ML IV PRN ×2 (08:03)
[2020-01-07] MEDS: FLUTICASONE/UMECLIDIN/VILANTER 100-62.5-25 MCG/DOSE IH SCH (11:05)
[2020-01-07] MEDS: CARVEDILOL 6.25 MG TABLET PO SCH ×2 (11:05→21:50)
[2020-01-07] MEDS: SACUBITRIL/VALSARTAN 24 MG/26 MG TABLET PO SCH ×2 (11:05→21:50)
[2020-01-07] MEDS: MIDODRINE HCL 5 MG TABLET PO SCH ×3 (11:05→17:40)
[2020-01-07] MEDS: FUROSEMIDE 40 MG TABLET PO SCH ×2 (11:06→21:50)
[2020-01-07] MEDS: NICOTINE 14 MG/24 HR PATCH.TD24 TD SCH (11:06)
--- NOTE | 2020-01-07 14:06 | RADIOLOGY REPORT (SQ) ---
EXAM DESCRIPTION: U/S ABD AORTIC SCREENING IMAGES COMPLETED DATE/TIME: 01/07/2020 1:50 pm REASON FOR STUDY: Back Pain / PAD COMPARISON: None. TECHNIQUE: Static and dynamic grayscale images acquired of the aorta and stored on PACs. Selected co abel Doppler and spectral images recorded. LIMITATIONS: None. FINDINGS: AORTIC CALIBER MAXIMAL PROXIMAL: 2.6 cm. MID: 2.5 cm. DISTAL: 2.4 cm. ILIAC DIAMETER RIGHT: 1.3 cm. LEFT: 1.3 cm. OTHER: No other significant finding. IMPRESSION: NO ABDOMINAL AORTIC ANEURYSM. COMMENT: Aortic aneurysm imaging followup: 2.1-2.5 cm Not AAA. No followup recommended. *Based upon the ACR White Paper in the J Am Elder Radiol 2013;10 (10):789-794. *For aortas of maximum diameter of 2.6-2.9 cm meeting the criteria for AAA (?1.5 x proximal normal se gment) TECHNICAL DOCUMENTATION: JOB ID: [id number] 2010 [employer]- All Rights Reserved Reading location - IP/workstation name: [email or web address]
[2020-01-07] MEDS: PHARMACY COMMUNICATION ORDER MC SCH (17:14)
[2020-01-07 17:31] LABS: HEMATOCRIT 28.9 % (37.9-51.0); HEMOGLOBIN 10.1 g/dL (13.5-17.0); MEAN CORPUSCULAR HEMOGLOBIN 32.8 pg (27.0-33.4); MEAN CORPUSCULAR VOLUME 94 fl (80-97); RED BLOOD COUNT 3.09 10^6/uL (4.35-5.55); RED CELL DISTRIBUTION WIDTH 14.7 % (11.5-14.0); WHITE BLOOD COUNT 6.4 10^3/uL (4.0-10.5)
[2020-01-07] MEDS: MULTIVITS W-MIN/IRON SOLN 60 ML PO SCH (17:40)
[2020-01-07 17:57] LABS: PLATELET COUNT 60 10^3/uL (150-450)
[2020-01-07 18:00] LABS: APPEARANCE,URINE CLEAR; BILIRUBIN,URINE NEGATIVE (NEGATIVE); COLOR,URINE YELLOW; GLUCOSE, URINE NEGATIVE (NEGATIVE); KETONES,URINE NEGATIVE (NEGATIVE); LEUKOCYTE ESTERASE,URINE NEGATIVE (NEGATIVE); NITRITE,URINE NEGATIVE (NEGATIVE); PROTEIN,URINE NEGATIVE (NEGATIVE); UROBILINOGEN,URINE NEGATIVE mg/dL (<2.0)
[2020-01-08 08:11] LABS: FOLATE 7.39 ng/mL (>2.76)
[2020-01-08 08:35] LABS: ABSOLUTE RETICS # 0.044 10^6/uL (0.028-0.122); RETICULOCYTE COUNT (AUTO) 1.43 % (0.66-2.85)
[2020-01-08 08:53] LABS: ALBUMIN 2.2 g/dL (3.5-5.0); ALKALINE PHOSPHATASE 213 U/L (38-126); ANION GAP 7 (5-19); ASPARTATE AMINO TRANSFERASE 155 U/L (17-59); BILIRUBIN,DIRECT 0.6 mg/dL (0.0-0.4); BLOOD UREA NITROGEN 89 mg/dL (7-20); CALCIUM 7.8 mg/dL (8.4-10.2); CARBON DIOXIDE 30 mmol/L (22-30); CHLORIDE 99 mmol/L (98-107); GLUCOSE 127 mg/dL (75-110); POTASSIUM 3.2 mmol/L (3.6-5.0); TOTAL PROTEIN 4.5 g/dL (6.3-8.2)
[2020-01-08 09:11] LABS: HEMATOCRIT 28.9 % (37.9-51.0); HEMOGLOBIN 10.2 g/dL (13.5-17.0); MEAN CORPUSCULAR HEMOGLOBIN 32.8 pg (27.0-33.4); MEAN CORPUSCULAR HGB CONC 35.3 g/dL (32.0-36.0); MEAN CORPUSCULAR VOLUME 93 fl (80-97); RED BLOOD COUNT 3.11 10^6/uL (4.35-5.55); RED CELL DISTRIBUTION WIDTH 14.6 % (11.5-14.0); WHITE BLOOD COUNT 6.1 10^3/uL (4.0-10.5)
[2020-01-08 09:57] LABS: PLATELET COUNT 67 10^3/uL (150-450)
[2020-01-08] MEDS: MIDODRINE HCL 5 MG TABLET PO SCH ×3 (10:22→18:35)
[2020-01-08] MEDS: FLUOXETINE HCL 20 MG CAPSULE PO SCH (10:22)
[2020-01-08] MEDS: FUROSEMIDE 40 MG TABLET PO SCH ×2 (10:22→22:17)
[2020-01-08] MEDS: FLUTICASONE/UMECLIDIN/VILANTER 100-62.5-25 MCG/DOSE IH SCH (10:23)
[2020-01-08] MEDS: CARVEDILOL 6.25 MG TABLET PO SCH ×2 (10:23→21:50)
[2020-01-08] MEDS: NICOTINE 14 MG/24 HR PATCH.TD24 TD SCH (10:23)
[2020-01-08] MEDS: SACUBITRIL/VALSARTAN 24 MG/26 MG TABLET PO SCH ×2 (10:23→21:50)
[2020-01-08] MEDS: MULTIVITS W-MIN/IRON SOLN 60 ML PO SCH (10:24)
--- NOTE | 2020-01-08 19:32 | Progress Note ---
Provider Note Provider Note: CARDIOLOGY PROGRESS NOTE by Dr. Alicia Brizuela on 01/08/2020. OBJECTIVE: The patient is awake alert oriented x3. His appetite is slightly improved. Physical therapy had cardiomyopathy stand on the side of the bed but had to discontinue due to patient's severe dizziness. Unfortunately by a standing blood pressure was not taken. The patient's hemoglobin is stable, and his rectal tube is out. There is no evidence of ongoing GI bleed. There is no arrhythmias seen on the monitor. The patient has no anginal symptoms. There is no PND orthopnea or leg edema. There is no firing of the AICD. PHYSICAL EXAMINATION: The patient is chronically ill looking and malnourished. But he is more awake and cheerful. Selected Entries 01/08/20 16:08 Temperature 99.7 F Temperature Oral Source Pulse Rate 62 Respiratory 18 Rate Blood Pressure 115/55 L Blood Pressure 75 Mean BP Location Right Arm BP Position Supine O2 Sat by Pulse 94 Oximetry Oxygen Delivery Room Air Method HEAD: Is atraumatic normocephalic. EYES: Pupils are equal round regular reactive to light and accommodation. Extraocular movements are normal. There is no conjunctival pallor. There is no scleral icterus. EARS: Tympanic membranes are intact. External auditory canals are clear. NOSE: There is no deviated nasal septum. There is no inflammation of the nasal mucous membrane. MOUTH: Mucous membranes of mouth are dry tongue is still dry. THROAT: There is no redness of the oropharynx. There is no exudates. 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 There is no catie-care ecchymosis. NECK: Supple. There is no JVD present. Carotids are equal there is no bruit. There is no lymphadenopathy. There is no goiter. There is no accessory muscle respiration use. Trachea central. LUNGS: Shows diminished air entry prolonged expiration there is bibasilar rales of CHF. There is no rhonchi or wheezing. There is no chest wall tenderness on palpation. On palpation there is hyperresonance. There is no bibasilar rales of heart failure. HEART: S1-S2 is heard. There is no S3 gallop. There is no S4 gallop there is systolic murmur left sternal border and the apex there is no rub. ABDOMEN: Soft. There is no hepatosplenomegaly. Bowel sounds are normal. There is no hepatosplenomegaly. EXTREMITIES: There is diminished bilateral femoral pulses with bruits. 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 He has bilateral femoral bruits present. Leg pulses are diminished. There is no pedal edema bilaterally. There is no DVT or cellulitis. There is no cyanosis or clubbing. DOWEL POINTER: The patient is asleep, but when aroused/awaken he is oriented x3 with no focal deficits. PSYCHIATRIC: Patient is a patient judgment insight are intact his affect is normal, he is not agitated or anxious. The patient's 24-hour intake is 380 mL. Output is 1555 mL. Labs- All tests 24 hr 01/08/20 01/08/20 01/08/20 06:10 08:00 08:00 WBC RBC Hgb Hct MCV MCH MCHC RDW Plt Count Reticulocyte # 0.044 Retic Count (auto) 1.43 Sodium 136.1 L Potassium 3.2 L Chloride 99 Carbon Dioxide 30 Anion Gap 7 BUN 89 H Creatinine 1.91 H Est GFR ( Amer) 43 L Est GFR (MDRD) Non-Af 35 L Glucose 127 H POC Glucose Calcium 7.8 L Iron 57.0 TIBC 264 % Saturation 22 Ferritin 304.00 Total Bilirubin 1.0 Direct Bilirubin 0.6 H Neonat Total Bilirubin Not Reportable Neonat Direct Bilirubin Not Reportable Neonat Indirect Bili Not Reportable AST 155 H ALT 104 H Alkaline Phosphatase 213 H Total Protein 4.5 L Albumin 2.2 L Vitamin B12 954.0 H Folate 7.39 01/08/20 01/08/20 08:00 21:58 WBC 6.1 RBC 3.11 L Hgb 10.2 L Hct 28.9 L MCV 93 MCH 32.8 MCHC 35.3 RDW 14.6 H Plt Count 67 L Reticulocyte # Retic Count (auto) Sodium Potassium Chloride Carbon Dioxide Anion Gap BUN Creatinine Est GFR ( Amer) Est GFR (MDRD) Non-Af Glucose POC Glucose 114 H Calcium Iron TIBC % Saturation Ferritin Total Bilirubin Direct Bilirubin Neonat Total Bilirubin Neonat Direct Bilirubin Neonat Indirect Bili AST ALT Alkaline Phosphatase Total Protein Albumin Vitamin B12 Folate Chest X-Ray 12/24/19 19:50 IMPRESSION: New right basilar airspace consolidative change, suspicious for pneumonia. Head CT 12/24/19 20:48 IMPRESSION: 1. No acute intracranial findings. 2. Senescent changes with chronic microvascular ischemia and old lacunar infarcts. Chest X-Ray 12/28/19 00:00 IMPRESSION: 1. New right pleural effusion since 12/24/2019, with worsening right pulmonary infiltrate, likely pneumonia. Chest X-Ray 12/29/19 00:00 IMPRESSION: Right internal jugular catheter as described. Improving right lower lobe pneumonia. GI Bleed Scan Nuclear Medicine 01/04/20 00:00 IMPRESSION: EVIDENCE OF ACTIVE GASTROINTESTINAL BLEEDING. POINT OF ORIGIN IS IN THE RIGHT UPPER QUADRANT. Chest X-Ray 01/05/20 06:00 IMPRESSION: Improved but persistent patchy right basilar airspace disease and trace effusion. Abdomen Ultrasound 01/07/20 00:00 IMPRESSION: NO ABDOMINAL AORTIC ANEURYSM. IMPRESSION/RECOMMENDATION: 1. Acute anemia: The patient's hemoglobin is stable. This morning was 10.1. 2. Acute on chronic systolic heart failure.: This seems to be compensated. Continue the patient's Entresto and Coreg. Continue midodrine. We will convert the patient's Lasix to p.o. Lasix. 3. Acute nonoliguric renal failure. Patient with good urine output. Partly the BUN/creatinine secondary to patient's absorption of blood from his GI tract about the ligament of Treitz. Patient BUN/creatinine is improving. 4. Hypokalemia: Replace patient's potassium. We will hold the patient's Lasix scheduled to be given tonight. 5. Severe mitral regurgitation, and severe tricuspid regurgitation and severe pulmonary hypertension. 6. DIlated cardiomyopathy and ischemic cardiomyopathy with severely reduced LV ejection fraction. Continue beta-abhishek and Entresto. Continue Lasix. 7.. COPD: At present no acute exacerbation. Will change albuterol nebulizer treatment to Xopenex treatment 8. Coronary artery disease. History of old myocardial infarction and history of coronary bypass graft surgery. No anginal symptoms. Continue anti-CAD medication, as being down now. Due to her drop in blood pressure effect of nitrates this has been held. 9. History of hypertension: Blood pressure well controlled 10. History of AICD: No firing of his AICD recently. 11. Peripheral vascular disease: History of past history of left femoropopliteal bypass surgery. Abdominal ultrasound shows no evidence of abdominal aortic aneurysm 12 History of pancytopenia 13. Tobacco abuse disorder. We will continue the patient on NicoDerm patch 14. History of facial skin cancer. The patient will be requiring radiation treatment as per Dr. Domingo, radiation oncologist in [place]. 15. Elevated digoxin level without any evidence of digitoxicity. We will discontinue the patient's digoxin. The patient is low back to 1.7. But in view of the patient's renal insufficiency will not reinstitute digoxin. 16. Upper GI bleed. There is, at present, no evidence of acute ongoing bleeding. Will observe check the patient's hemoglobin. Bleed. 17. Hypotension: Resolved on inotropes. We will try to wean the patient off dobutamine, dopamine and vasopressin. 18. Back pain. Patient has history of back surgery and chronic back pain. But will get a screening for abdominal aortic aneurysm in view of the patient's history of peripheral arterial disease. We will continue the patient to physical therapy by PT. The goal here is to ambulate the patient. When patient is ambulatory would recommend discharging the patient tomorrow as such as assisted care facility.
--- NOTE | 2020-01-08 22:38 | Progress Note ---
Provider Note Provider Note: Cardiology PROGRESS NOTE by Dr. Alicia Brizuela on 01/07/2020. SUBJECTIVE: The patient appears to be awake alert complains of mild dizziness. He denies any chest pain or discomfort. There is no shortness of breath or wheezing or cough. There is no PND orthopnea. There is no hematochezia, but still has a rectal tube which has some minimal amount of black liquid stools. His hemoglobin is come down to 8.8. He has no abdominal pain or nausea vomiting. He is on clear liquids will will increase the diet to cardiac diet. We will also start the patient on multivitamin daily. Yesterday night and spoke to the patient's daughter updating her about the patient's condition. PHYSICAL EXAMINATION: The patient appears to be chronically ill and malnourished. He is in no acute distress. Selected Entries 01/07/20 01/07/20 10:00 10:17 Core 97.7 F Temperature Heart Rate ( 60 Monitors) Respiratory 22 H 23 H Rate Blood Pressure 102/49 L Blood Pressure 66 Mean O2 Sat by Pulse 98 99 Oximetry HEAD: Is atraumatic normocephalic. EYES: Pupils are equal round regular reactive to light and accommodation. Extraocular movements are normal. There is no conjunctival pallor. There is no scleral icterus. EARS: Tympanic membranes are intact. External auditory canals are clear. NOSE: There is no deviated nasal septum. There is no inflammation of the nasal mucous membrane. MOUTH: Mucous membranes of mouth are dry tongue is still dry. THROAT: There is no redness of the oropharynx. There is no exudates. 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 There is no catie-care ecchymosis. NECK: Supple. There is no JVD present. Carotids are equal there is no bruit. There is no lymphadenopathy. There is no goiter. There is no accessory muscle respiration use. Trachea central. LUNGS: Shows diminished air entry prolonged expiration there is bibasilar rales of CHF. There is no rhonchi or wheezing. There is no chest wall tenderness on palpation. On palpation there is hyperresonance. There is no bibasilar rales of heart failure. HEART: S1-S2 is heard. There is no S3 gallop. There is no S4 gallop there is systolic murmur left sternal border and the apex there is no rub. ABDOMEN: Soft. There is no hepatosplenomegaly. Bowel sounds are normal. There is no hepatosplenomegaly. EXTREMITIES: There is diminished bilateral femoral pulses with bruits. 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 He has bilateral femoral bruits present. Leg pulses are diminished. There is no pedal edema bilaterally. There is no DVT or cellulitis. There is no cyanosis or clubbing. 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 PSYCHIATRIC: Patient is a patient judgment insight are intact his affect is normal, he is not agitated or anxious. The patient's 24-hour output is 1 875 ML. Labs- All tests 24 hr 01/06/20 01/07/20 01/07/20 16:20 03:53 03:53 WBC 7.9 6.6 RBC 2.75 L 2.69 L Hgb 9.0 L 8.8 L Hct 25.5 L 25.0 L MCV 93 93 MCH 32.9 32.8 MCHC 35.5 35.2 RDW 14.7 H 14.8 H Plt Count 65 L 64 L Sodium 135.1 L Potassium 3.7 Chloride 98 Carbon Dioxide 32 H Anion Gap 5 BUN 109 H Creatinine 2.02 H Est GFR ( Amer) 40 L Est GFR (MDRD) Non-Af 33 L Glucose 90 Calcium 8.0 L Total Bilirubin 1.1 Direct Bilirubin 0.6 H Neonat Total Bilirubin Not Reportable Neonat Direct Bilirubin Not Reportable Neonat Indirect Bili Not Reportable AST 157 H ALT 98 H Alkaline Phosphatase 190 H Total Protein 4.2 L Albumin 2.2 L Digoxin 1.43 Blood Type Antibody Screen Crossmatch 01/07/20 08:57 WBC RBC Hgb Hct MCV MCH MCHC RDW Plt Count Sodium Potassium Chloride Carbon Dioxide Anion Gap BUN Creatinine Est GFR ( Amer) Est GFR (MDRD) Non-Af Glucose Calcium Total Bilirubin Direct Bilirubin Neonat Total Bilirubin Neonat Direct Bilirubin Neonat Indirect Bili AST ALT Alkaline Phosphatase Total Protein Albumin Digoxin Blood Type B POSITIVE Antibody Screen NEGATIVE Crossmatch See Detail Chest X-Ray 12/24/19 19:50 IMPRESSION: New right basilar airspace consolidative change, suspicious for pneumonia. Head CT 12/24/19 20:48 IMPRESSION: 1. No acute intracranial findings. 2. Senescent changes with chronic microvascular ischemia and old lacunar infarcts. Chest X-Ray 12/28/19 00:00 IMPRESSION: 1. New right pleural effusion since 12/24/2019, with worsening right pulmonary infiltrate, likely pneumonia. Chest X-Ray 12/29/19 00:00 IMPRESSION: Right internal jugular catheter as described. Improving right lower lobe pneumonia. GI Bleed Scan Nuclear Medicine 01/04/20 00:00 IMPRESSION: EVIDENCE OF ACTIVE GASTROINTESTINAL BLEEDING. POINT OF ORIGIN IS IN THE RIGHT UPPER QUADRANT. Chest X-Ray 01/05/20 06:00 IMPRESSION: Improved but persistent patchy right basilar airspace disease and trace effusion. IMPRESSION/RECOMMENDATION: 1. Acute anemia: The patient hemoglobin this morning was 8.8.. There is no signs of active bleeding. But will transfuse the patient 1 unit of blood assuming the patient is still having a slow bleed. This is due to the fact that with anemia can increase the cardiac output and put the patient back into decompensated heart failure. Will recheck the patient's hemoglobin later today and if stable will transfer the patient to [facility]. 2. Acute on chronic systolic heart failure.: This seems to be compensated. Since the heart failure is compensated we will discontinue the patient's dobutamine. He is on IV Lasix, and Entresto and his digoxin is being held. 3. Acute nonoliguric renal failure. Patient with good urine output. Partly the BUN/creatinine secondary to patient's absorption of blood from his GI tract about the ligament of Treitz. 4. Severe mitral regurgitation, and severe tricuspid regurgitation 5. Severe pulmonary hypertension. 6. DIlated cardiomyopathy and ischemic cardiomyopathy with severely reduced LV ejection fraction. Please refer to treatment outlined above. 7.. COPD: At present no acute exacerbation. Will change albuterol nebulizer treatment to Xopenex treatment 8. Coronary artery disease. History of old myocardial infarction and history of coronary bypass graft surgery. No anginal symptoms. Continue anti-CAD medication, as being down now. Due to her drop in blood pressure effect of nitrates this has been held. 9. History of hypertension: Blood pressure well controlled 10. History of AICD: No firing of his AICD recently. 11. Peripheral vascular disease: History of recent past history of left femorop opliteal bypass surgery. 12 History of pancytopenia 13. Tobacco abuse disorder. We will continue the patient on NicoDerm patch 14. History of facial skin cancer. The patient will be requiring radiation treatment as per Dr. Domingo, radiation oncologist in [place]. 15. Elevated digoxin level without any evidence of digitoxicity. We will discontinue the patient's digoxin. The patient is low back to 1.7. But in view of the patient's renal insufficiency will hold back on it. 16. Upper GI bleed. There is, at present, no evidence of acute ongoing bleeding. Will observe check the patient's hemoglobin. Bleed. 17. Hypotension: Resolved on inotropes. We will try to wean the patient off dopamine and vasopressin. 18. Back pain. Patient has history of back surgery and chronic back pain. But will get a screening for abdominal aortic aneurysm in view of the patient's history of peripheral arterial disease. Medications reviewed. Medications adjusted. Medical decision making is of high complexity. 60 minutes spent with patient more than 50% time spent direct patient care. I was in the room when the patient's bedside endoscopy was performed. Will follow. Will discuss with Ms. Edith lowe with the patient surrogate healthcare power of deputy prosecuting attorney, later today since she is in the [facility] time..
[2020-01-08] MEDS ORDERED: SACUBITRIL/VALSARTAN 49 MG/51 MG TABLET PO SCH (23:00)
[2020-01-08] MEDS ORDERED: POTASSIUM CHLORIDE 10 MEQ TABLET.ER PO ONE (23:00)
[2020-01-09 07:11] LABS: HEMATOCRIT 26.6 % (37.9-51.0); HEMOGLOBIN 9.3 g/dL (13.5-17.0); MEAN CORPUSCULAR HEMOGLOBIN 32.9 pg (27.0-33.4); MEAN CORPUSCULAR HGB CONC 35.1 g/dL (32.0-36.0); MEAN CORPUSCULAR VOLUME 94 fl (80-97); RED BLOOD COUNT 2.84 10^6/uL (4.35-5.55); RED CELL DISTRIBUTION WIDTH 14.8 % (11.5-14.0); WHITE BLOOD COUNT 4.9 10^3/uL (4.0-10.5)
[2020-01-09 08:17] LABS: PLATELET COUNT 70 10^3/uL (150-450)
[2020-01-09 09:37] LABS: ALBUMIN 2.2 g/dL (3.5-5.0); ALKALINE PHOSPHATASE 213 U/L (38-126); ASPARTATE AMINO TRANSFERASE 147 U/L (17-59); BILIRUBIN,DIRECT 0.5 mg/dL (0.0-0.4); BLOOD UREA NITROGEN 72 mg/dL (7-20); CALCIUM 7.7 mg/dL (8.4-10.2); CHLORIDE 99 mmol/L (98-107); GLUCOSE 105 mg/dL (75-110); POTASSIUM 3.5 mmol/L (3.6-5.0); TOTAL PROTEIN 4.5 g/dL (6.3-8.2)
[2020-01-09 09:43] LABS: ANION GAP 6 (5-19); CARBON DIOXIDE 31 mmol/L (22-30)
--- NOTE | 2020-01-09 10:23 | Progress Note ---
Provider Note Provider Note: CARDIOLOGY PROGRESS NOTE by Dr. Alicia Brizuela on 01/09/2020. SUBJECTIVE: The patient is awake alert and oriented x3. He has no chest pain or discomfort. There is no shortness of breath. There is no PND orthopnea or leg edema. There is no arrhythmias seen on the monitor. There is no firing of AI CD. The patient did a little better with physical therapy and was able to ambulate from his bed to his chair but complained of profound weakness. He continues to have diarrhea suspect that this may be due to Ensure. We will stop the Ensure and see if the diarrhea resolves. PHYSICAL EXAMINATION: The patient appears to be of malnourished and of and chronically ill. He is in no acute distress. Selected Entries 01/09/20 07:34 Temperature 97.9 F Temperature Oral Source Pulse Rate 59 L Respiratory 17 Rate Blood Pressure 132/60 H Blood Pressure 84 Mean BP Location Right Arm BP Position Supine O2 Sat by Pulse 94 Oximetry Oxygen Delivery Room Air Method HEAD: Is atraumatic normocephalic. EYES: Pupils are equal round regular react lisha to light and accommodation. Extraocular movements are normal. There is no conjunctival pallor. There is no scleral icterus. EARS: Tympanic membranes are intact. External auditory canals are clear. NOSE: There is no deviated nasal septum. There is no inflammation of the nasal mucous membrane. MOUTH: Mucous membranes of mouth are dry tongue is still dry. THROAT: There is no redness of the oropharynx. There is no exudates. 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 There is no catie-care ecchymosis. NECK: Supple. There is no JVD present. Carotids are equal there is no bruit. There is no lymphadenopathy. There is no goiter. There is no accessory muscle respiration use. Trachea central. LUNGS: Shows diminished air entry prolonged expiration there is bibasilar rales of CHF. There is no rhonchi or wheezing. There is no chest wall tenderness on palpation. On palpation there is hyperresonance. There is no bibasilar rales of heart failure. HEART: S1-S2 is heard. There is no S3 gallop. There is no S4 gallop there is systolic murmur left sternal border and the apex there is no rub. ABDOMEN: Soft. There is no hepatosplenomegaly. Bowel sounds are normal. There is no hepatosplenomegaly. EXTREMITIES: There is diminished bilateral femoral pulses with bruits. 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 He has bilateral femoral bruits present. Leg pulses are diminished. There is no pedal edema bilaterally. There is no DVT or cellulitis. There is no cyanosis or clubbing. 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 PSYCHIATRIC: Patient is a patient judgment insight are intact his affect is normal, he is not agitated or anxious. The patient's 24-hour intake is 1410 mL. Output is 2825 mL. IMPRESSION/RECOMMENDATION: 1. Acute anemia: The patient's hemoglobin is stable. This morning was 10.1. 2. Acute on chronic systolic heart failure.: This seems to be compensated. Continue the patient's Entresto and Coreg. Continue midodrine. We will convert the patient's Lasix to p.o. Lasix. 3. Acute nonoliguric renal failure. Patient with good urine output. Partly the BUN/creatinine secondary to patient's absorption of blood from his GI tract about the ligament of Treitz. Patient BUN/creatinine is improving. 4. Hypokalemia: Replace patient's potassium. We will hold the patient's Lasix scheduled to be given tonight. 5. Severe mitral regurgitation, and severe tricuspid regurgitation and severe pulmonary hypertension. 6. DIlated cardiomyopathy and ischemic cardiomyopathy with severely reduced LV ejection fraction. Continue beta-abhishek and Entresto. Continue Lasix. 7.. COPD: At present no acute exacerbation. Will change albuterol nebulizer treatment to Xopenex treatment 8. Coronary artery disease. History of old myocardial infarction and history of coronary bypass graft surgery. No anginal symptoms. Continue anti-CAD medication, as being down now. Due to her drop in blood pressure effect of nitrates this has been held. 9. History of hypertension: Blood pressure well controlled 10. History of AICD: No firing of his AICD recently. 11. Peripheral vascular disease: History of past history of left femoropopliteal bypass surgery. Abdominal ultrasound shows no evidence of abdominal aortic aneurysm 12 History of pancytopenia 13. Tobacco abuse disorder. We will continue the patient on NicoDerm patch 14. History of facial skin cancer. The patient will be requiring radiation treatment as per Dr. Domingo, radiation oncologist in [place]. 15. Elevated digoxin level without any evidence of digitoxicity. We will discontinue the patient's digoxin. The patient is low back to 1.7. But in view of the patient's renal insufficiency will not reinstitute digoxin. 16. Upper GI bleed. There is, at present, no evidence of acute ongoing bleeding. Will observe check the patient's hemoglobin. Bleed. 17. Hypotension: Resolved on inotropes. We will try to wean the patient off dobutamine, dopamine and vasopressin. 18. Back pain. Patient has history of back surgery and chronic back pain. This is improved with morphine. There is no abdominal aortic aneurysm. Medications reviewed. Medical regimen management plan discussed with the patient's and the patient's daughter. Medical decision making is of high complexity. 40 minutes spent with patient more than 50% of time spent in direct patient care. The plan is to continue the patient on physical therapy he is making some progress albeit very little. The goal is to achieve patient's ambulation independently and subsequently transferred to assisted care living. We will also explore the possibility of inpatient rehab. Discussed all of the above including the medical management and plan, with the patient's daughter Ms. Edith Phillips who lives in [place].
[2020-01-09] MEDS: CARVEDILOL 6.25 MG TABLET PO SCH ×2 (10:31→21:15)
[2020-01-09] MEDS: NICOTINE 14 MG/24 HR PATCH.TD24 TD SCH (10:31)
[2020-01-09] MEDS: FLUOXETINE HCL 20 MG CAPSULE PO SCH (10:31)
[2020-01-09] MEDS: LOPERAMIDE HCL 2 MG CAPSULE PO PRN ×2 (10:31→17:10)
[2020-01-09] MEDS: SACUBITRIL/VALSARTAN 49 MG/51 MG TABLET PO SCH ×2 (10:31→21:16)
[2020-01-09] MEDS: MIDODRINE HCL 5 MG TABLET PO SCH ×3 (10:31→17:10)
[2020-01-09] MEDS: FUROSEMIDE 40 MG TABLET PO SCH ×2 (10:31→10:33)
[2020-01-09] MEDS: FLUTICASONE/UMECLIDIN/VILANTER 100-62.5-25 MCG/DOSE IH SCH (10:32)
[2020-01-09] MEDS: MULTIVITS W-MIN/IRON SOLN 60 ML PO SCH (10:38)
[2020-01-09] MEDS ORDERED: POTASSIUM CHLORIDE 10 MEQ TABLET.ER PO ONE (11:00)
[2020-01-09] MEDS: ENOXAPARIN SODIUM INJ 40 MG/0.4 ML DISP.SYRIN SUBCUT SCH (14:31)
[2020-01-09] MEDS ORDERED: LOPERAMIDE HCL 2 MG CAPSULE PO ONE (15:00)
[2020-01-09] MEDS ORDERED: TUBERCULIN,PURIF.PROT.DERIV. 5 TU/0.1 ML TEST 1 ML VIAL ID ONE (16:00)
[2020-01-09 18:58] LABS: APPEARANCE,URINE CLEAR; BILIRUBIN,URINE NEGATIVE (NEGATIVE); COLOR,URINE YELLOW; GLUCOSE, URINE NEGATIVE (NEGATIVE); KETONES,URINE NEGATIVE (NEGATIVE); LEUKOCYTE ESTERASE,URINE MODERATE (NEGATIVE); NITRITE,URINE NEGATIVE (NEGATIVE); PROTEIN,URINE NEGATIVE (NEGATIVE); UROBILINOGEN,URINE NEGATIVE mg/dL (<2.0)
[2020-01-09] MEDS: FAMOTIDINE 20 MG TABLET PO SCH (21:16)
[2020-01-10] MEDS: ENOXAPARIN SODIUM INJ 40 MG/0.4 ML DISP.SYRIN SUBCUT SCH (10:32)
[2020-01-10] MEDS: MULTIVITS W-MIN/IRON SOLN 60 ML PO SCH (10:32)
[2020-01-10] MEDS: FAMOTIDINE 20 MG TABLET PO SCH ×2 (10:41→21:09)
[2020-01-10] MEDS: MIDODRINE HCL 5 MG TABLET PO SCH ×3 (10:41→17:28)
[2020-01-10] MEDS: SACUBITRIL/VALSARTAN 49 MG/51 MG TABLET PO SCH (10:41)
[2020-01-10] MEDS: FLUOXETINE HCL 20 MG CAPSULE PO SCH (10:41)
[2020-01-10] MEDS: FUROSEMIDE 40 MG TABLET PO SCH (10:41)
[2020-01-10] MEDS: CARVEDILOL 6.25 MG TABLET PO SCH ×2 (10:41→21:09)
[2020-01-10] MEDS: NICOTINE 14 MG/24 HR PATCH.TD24 TD SCH (10:42)
[2020-01-10] MEDS: FLUTICASONE/UMECLIDIN/VILANTER 100-62.5-25 MCG/DOSE IH SCH (10:42)
[2020-01-10 12:02] LABS: HEMATOCRIT 24.7 % (37.9-51.0); HEMOGLOBIN 8.4 g/dL (13.5-17.0); MEAN CORPUSCULAR HEMOGLOBIN 32.4 pg (27.0-33.4); MEAN CORPUSCULAR HGB CONC 34.2 g/dL (32.0-36.0); MEAN CORPUSCULAR VOLUME 95 fl (80-97); RED CELL DISTRIBUTION WIDTH 14.7 % (11.5-14.0); WHITE BLOOD COUNT 3.9 10^3/uL (4.0-10.5)
[2020-01-10 12:12] LABS: ALBUMIN 2.1 g/dL (3.5-5.0); ALKALINE PHOSPHATASE 192 U/L (38-126); ANION GAP 7 (5-19); ASPARTATE AMINO TRANSFERASE 114 U/L (17-59); BILIRUBIN,DIRECT 0.4 mg/dL (0.0-0.4); BILIRUBIN,TOTAL 0.9 mg/dL (0.2-1.3); BLOOD UREA NITROGEN 69 mg/dL (7-20); CALCIUM 7.7 mg/dL (8.4-10.2); CARBON DIOXIDE 28 mmol/L (22-30); CHLORIDE 99 mmol/L (98-107); GLUCOSE 107 mg/dL (75-110); TOTAL PROTEIN 4.4 g/dL (6.3-8.2)
[2020-01-10 12:47] LABS: PLATELET COUNT 85 10^3/uL (150-450)
[2020-01-10 14:26] LABS: HEMATOCRIT 24.6 % (37.9-51.0); HEMOGLOBIN 8.7 g/dL (13.5-17.0); MEAN CORPUSCULAR HGB CONC 35.5 g/dL (32.0-36.0); MEAN CORPUSCULAR VOLUME 93 fl (80-97); RED BLOOD COUNT 2.64 10^6/uL (4.35-5.55); RED CELL DISTRIBUTION WIDTH 14.9 % (11.5-14.0); WHITE BLOOD COUNT 4.2 10^3/uL (4.0-10.5)
[2020-01-10 14:51] LABS: PLATELET COUNT 85 10^3/uL (150-450)
[2020-01-10] MEDS: LOPERAMIDE HCL 2 MG CAPSULE PO PRN ×2 (15:58→21:09)
--- NOTE | 2020-01-10 19:05 | Progress Note ---
Provider Note Provider Note: CARDIOLOGY PROGRESS NOTE by Dr. Alicia Brizuela on 01/10/2020 SUBJECTIVE: Patient continues to have diarrhea. He denies any abdominal pain. There is no nausea vomiting. He feels very weak due to the diarrhea. His stool is negative for WBCs. The C. difficile work-up is also negative. He does have occult blood stool. His hemoglobin is slightly reduced. But there is no evidence of acute ongoing GI bleed. He denies any chest pain discomfort. There is no anginal symptoms. There is no shortness of breath. There is no PND orthopnea. There is no arrhythmias seen on the monitor. There is no firing of his AICD. PHYSICAL EXAMINATION: The patient is of frail build and appears to be chronically ill and malnourished. Selected Entries 01/10/20 19:49 Temperature 98.5 F Respiratory 20 Rate O2 Sat by Pulse 96 Oximetry Oxygen Delivery Room Air Method HEAD: Is atraumatic normocephalic. EYES: Pupils are equal round regular reactive to light and accommodation. Extraocular movements are normal. There is no conjunctival pallor. There is no scleral icterus. EARS: Tympanic membranes are intact. External auditory canals are clear. NOSE: There is no deviated nasal septum. There is no inflammation of the nasal mucous membrane. MOUTH: Mucous membranes of mouth are dry tongue is still dry. THROAT: There is no redness of the oropharynx. There is no exudates. 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 There is no catie-care ecchymosis. NECK: Supple. There is no JVD present. Carotids are equal there is no bruit. There is no lymphadenopathy. There is no goiter. There is no accessory muscle respiration use. Trachea central. LUNGS: Shows diminished air entry prolonged expiration there is bibasilar rales of CHF. There is no rhonchi or wheezing. There is no chest wall tenderness on palpation. On palpation there is h yperresonance. There is no bibasilar rales of heart failure. HEART: S1-S2 is heard. There is no S3 gallop. There is no S4 gallop there is systolic murmur left sternal border and the apex there is no rub. ABDOMEN: Soft. There is no hepatosplenomegaly. Bowel sounds are normal. There is no hepatosplenomegaly. EXTREMITIES: There is diminished bilateral femoral pulses with bruits. 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 He has bilateral femoral bruits present. Leg pulses are diminished. There is no pedal edema bilaterally. There is no DVT or cellulitis. There is no cyanosis or clubbing. 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 PSYCHIATRIC: Patient is a patient judgment insight are intact his affect is normal, he is not agitated or anxious. The patient's 24-hour intake is 3880 mL. Output is 2450 mL. Labs- All tests 24 hr 01/10/20 01/10/20 01/10/20 11:12 11:12 13:25 WBC 3.9 L 4.2 RBC 2.60 L 2.64 L Hgb 8.4 L 8.7 L Hct 24.7 L 24.6 L MCV 95 93 MCH 32.4 33.0 MCHC 34.2 35.5 RDW 14.7 H 14.9 H Plt Count 85 L 85 L Sodium 134.4 L Potassium 4.0 Chloride 99 Carbon Dioxide 28 Anion Gap 7 BUN 69 H Creatinine 1.26 H Est GFR ( Amer) > 60 Est GFR (MDRD) Non-Af 57 L Glucose 107 Calcium 7.7 L Total Bilirubin 0.9 Direct Bilirubin 0.4 Neonat Total Bilirubin Not Reportable Neonat Direct Bilirubin Not Reportable Neonat Indirect Bili Not Reportable AST 114 H ALT 90 H Alkaline Phosphatase 192 H Total Protein 4.4 L Albumin 2.1 L Stool Occult Blood Stool for White Cells Stl C. Difficile GDH Ag Stl C.difficile Tox A&B 01/10/20 01/10/20 01/10/20 18:13 18:13 20:50 WBC RBC Hgb Hct MCV MCH MCHC RDW Plt Count Sodium Potassium Chloride Carbon Dioxide Anion Gap BUN Creatinine Est GFR ( Amer) Est GFR (MDRD) Non-Af Glucose Calcium Total Bilirubin Direct Bilirubin Neonat Total Bilirubin Neonat Direct Bilirubin Neonat Indirect Bili AST ALT Alkaline Phosphatase Total Protein Albumin Stool Occult Blood POSITIVE Stool for White Cells NO WBCs SEEN Stl C. Difficile GDH Ag NEGATIVE Stl C.difficile Tox A&B NEGATIVE Chest X-Ray 12/24/19 19:50 IMPRESSION: New right basilar airspace consolidative change, suspicious for pneumonia. Head CT 12/24/19 20:48 IMPRESSION: 1. No acute intracranial findings. 2. Senescent changes with chronic microvascular ischemia and old lacunar infarcts. Chest X-Ray 12/28/19 00:00 IMPRESSION: 1. New right pleural effusion since 12/24/2019, with worsening right pulmonary infiltrate, likely pneumonia. Chest X-Ray 12/29/19 00:00 IMPRESSION: Right internal jugular catheter as described. Improving right lower lobe pneumonia. GI Bleed Scan Nuclear Medicine 01/04/20 00:00 IMPRESSION: EVIDENCE OF ACTIVE GASTROINTESTINAL BLEEDING. POINT OF ORIGIN IS IN THE RIGHT UPPER QUADRANT. Chest X-Ray 01/05/20 06:00 IMPRESSION: Improved but persistent patchy right basilar airspace disease and trace effusion. Abdomen Ultrasound 01/07/20 00:00 IMPRESSION: NO ABDOMINAL AORTIC ANEURYSM. IMPRESSION/RECOMMENDATION: 1. Diarrhea? Cause the patient's stool WBC is negative. C. difficile result is negative. Occult blood is positive. We will recheck the patient's C. difficile in the a.m. We will treat the patient's symptoms with Imodium. We will stop the patient's Coreg to see if this is the cause patient's diarrhea. 2. Acute anemia: The patient's hemoglobin is stable. This morning was 10.1. 3. Acute on chronic systolic heart failure.: This seems to be compensated. Continue the patient's Entresto and Coreg. Continue midodrine. We will convert the patient's Lasix to p.o. Lasix. 4. Acute nonoliguric renal failure. Patient with good urine output. Partly the BUN/creatinine secondary to patient's absorption of blood from his GI tract about the ligament of Treitz. Patient BUN/creatinine is improving. 5. Hypokalemia: Replace patient's potassium. We will hold the patient's Lasix scheduled to be given tonight. 6. Severe mitral regurgitation, and severe tricuspid regurgitation and severe pulmonary hypertension. 7. DIlated cardiomyopathy and ischemic cardiomyopathy with severely reduced LV ejection fraction. Continue beta-abhishek and Entresto. Continue Lasix. 8.. COPD: At present no acute exacerbation. Will change albuterol nebulizer treatment to Xopenex treatment 9. Coronary artery disease. History of old myocardial infarction and history of coronary bypass graft surgery. No anginal symptoms. Continue anti-CAD medication, as being down now. Due to her drop in blood pressure effect of nitr ates this has been held. 10. History of hypertension: Blood pressure well controlled 11. History of AICD: No firing of his AICD recently. 12. Peripheral vascular disease: History of past history of left femoropopliteal bypass surgery. Abdominal ultrasound shows no evidence of abdominal aortic aneurysm 13 History of pancytopenia 14. Tobacco abuse disorder. We will continue the patient on NicoDerm patch 15. History of facial skin cancer. The patient will be requiring radiation treatment as per Dr. Domingo, radiation oncologist in [place]. 16. Elevated digoxin level without any evidence of digitoxicity. We will discontinue the patient's digoxin. The patient is low back to 1.7. But in view of the patient's renal insufficiency will not reinstitute digoxin. 17. Upper GI bleed. There is, at present, no evidence of acute ongoing bleeding. Will observe check the patient's hemoglobin. Bleed. 18. Hypotension: Resolved on inotropes. We will try to wean the patient off dobutamine, dopamine and vasopressin. 19. Back pain. Patient has history of back surgery and chronic back pain. This is improved with morphine. There is no abdominal aortic aneurysm we In view of the patient's diarrhea will stop the patient's Coreg. Will hold the patient's Entresto. We will DC the patient Pepcid and place the patient on pantoprazole. Will repeat C. difficile labs in the a.m. again to make sure were not missing C. difficile colitis. Will give loperamide [id number]. Medications reviewed. Medical regimen management plan discussed with the patient's daughter. Medical decision making is of high complexity. 40 minutes spent with patient more than 50% of time spent in direct patient care. The plan is to continue the patient on physical therapy he is making some progress albeit very little. The goal is to achieve patient's ambulation independently and subsequently transferred to assisted care living. We will also explore the possibility of inpatient rehab.
[2020-01-10 19:21] LABS: C DIFFICILE GDH NEGATIVE (NEGATIVE)
[2020-01-10] MEDS ORDERED: SACUBITRIL/VALSARTAN 97 MG/103 MG TABLET PO SCH (22:00)
[2020-01-10] MEDS ORDERED: LOPERAMIDE HCL 2 MG CAPSULE PO ONE (23:30)
[2020-01-11] MEDS: LOPERAMIDE HCL 2 MG CAPSULE PO SCH ×3 (06:09→18:01)
[2020-01-11] MEDS: PANTOPRAZOLE SODIUM 40 MG TABLET.DR PO SCH ×2 (06:10→18:01)
[2020-01-11 08:37] LABS: HEMATOCRIT 22.8 % (37.9-51.0); MEAN CORPUSCULAR HEMOGLOBIN 33.1 pg (27.0-33.4); MEAN CORPUSCULAR HGB CONC 34.8 g/dL (32.0-36.0); MEAN CORPUSCULAR VOLUME 95 fl (80-97); RED CELL DISTRIBUTION WIDTH 14.9 % (11.5-14.0); WHITE BLOOD COUNT 4.8 10^3/uL (4.0-10.5)
[2020-01-11 09:14] LABS: PLATELET COUNT 94 10^3/uL (150-450)
--- NOTE | 2020-01-11 09:14 | Progress Note ---
Provider Note Provider Note: CARDIOLOGY PROGRESS NOTE by Dr. Alicia Brizuela on 01/11/2020. Subjective: The patient continues to have diarrhea. His stool occult blood is positive. He denies any abdominal pain or nausea or vomiting. He states he feels very weak. There is no arrhythmias seen on the monitor. His Coreg and Entresto have been held. His hemoglobin again is dropped to 7.9. Hence we will give the patient 2 units of packed RBCs. There is no anginal symptoms. There is no shortness of breath. There is no symptoms of acute exacerbation of COPD. There is no pedal edema. There is no PND orthopnea. We will consult Dr. San tomorrow. Physical EXAMINATION: The patient appears to be chronically ill and malnourished. Selected Entries 01/11/20 08:02 Temperature 99.2 F Temperature Oral Source Pulse Rate 64 Respiratory 16 Rate Blood Pressure 102/43 L Blood Pressure 62 Mean BP Location Right Arm BP Position Sitting O2 Sat by Pulse 94 Oximetry Oxygen Delivery Room Air Method HEAD: Is atraumatic normocephalic. EYES: Pupils are equal round regular reactive to light and accommodation. Extraocular movements are normal. There is no conjunctival pallor. There is no scleral icterus. EARS: Tympanic membranes are intact. External auditory canals are clear. NOSE: There is no deviated nasal septum. There is no inflammation of the nasal mucous membrane. MOUTH: Mucous membranes of mouth are dry tongue is still dry. THROAT: There is no redness of the oropharynx. There is no exudates. 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 There is no catie-care ecchymosis. NECK: Supple. There is no JVD present. Carotids are equal there is no bruit. There is no lymphadenopathy. There is no goiter. There is no accessory muscle respiration use. Trachea central. LUNGS: Shows diminished air entry prolonged expiration there is bibasilar rales of CHF. There is no rhonchi or wheezing. There is no chest wall tenderness on palpation. On palpation there is hyperresonance. There is no bibasilar rales of heart failure. HEART: S1-S2 is heard. There is no S3 gallop. There is no S4 gallop there is systolic murmur left sternal border and the apex there is no rub. ABDOMEN: Soft. There is no hepatosplenomegaly. Bowel sounds are normal. There is no hepatosplenomegaly. EXTREMITIES: There is diminished bilateral femoral pulses with bruits. There is a scar in the left lower extremity from his left femoral-popliteal bypass roberson rgery. He has bilateral femoral bruits present. Leg pulses are diminished. There is no pedal edema bilaterally. There is no DVT or cellulitis. There is no cyanosis or clubbing. 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 PSYCHIATRIC: Patient is a patient judgment insight are intact his affect is normal, he is not agitated or anxious. Labs- All tests 24 hr 01/07/20 01/11/20 01/11/20 08:57 06:30 10:40 WBC 4.8 RBC 2.40 L Hgb 7.9 L Hct 22.8 L MCV 95 MCH 33.1 MCHC 34.8 RDW 14.9 H Plt Count 94 L Sodium Potassium Chloride Carbon Dioxide Anion Gap BUN Creatinine Est GFR ( Amer) Est GFR (MDRD) Non-Af Glucose Calcium Total Bilirubin Direct Bilirubin Neonat Total Bilirubin Neonat Direct Bilirubin Neonat Indirect Bili AST ALT Alkaline Phosphatase Total Protein Albumin Stl C. Difficile GDH Ag NEGATIVE Stl C.difficile Tox A&B NEGATIVE Blood Type Antibody Screen Crossmatch See Detail 01/11/20 01/11/20 11:29 11:30 WBC RBC Hgb Hct MCV MCH MCHC RDW Plt Count Sodium 132.0 L Potassium 4.1 Chloride 98 Carbon Dioxide 29 Anion Gap 5 BUN 70 H Creatinine 1.31 H Est GFR ( Amer) > 60 Est GFR (MDRD) Non-Af 54 L Glucose 73 L Calcium 7.7 L Total Bilirubin 1.1 Direct Bilirubin 0.5 H Neonat Total Bilirubin Not Reportable Neonat Direct Bilirubin Not Reportable Neonat Indirect Bili Not Reportable AST 77 H ALT 74 H Alkaline Phosphatase 175 H Total Protein 4.0 L Albumin 2.0 L Stl C. Difficile GDH Ag Stl C.difficile Tox A&B Blood Type B POSITIVE Antibody Screen NEGATIVE Crossmatch See Detail Chest X-Ray 12/24/19 19:50 IMPRESSION: New right basilar airspace consolidative change, suspicious for pneumonia. Head CT 12/24/19 20:48 IMPRESSION: 1. No acute intracranial findings. 2. Senescent changes with chronic microvascular ischemia and old lacunar infarcts. Chest X-Ray 12/28/19 00:00 IMPRESSION: 1. New right pleural effusion since 12/24/2019, with worsening right pulmonary infiltrate, likely pneumonia. Chest X-Ray 12/29/19 00:00 IMPRESSION: Right internal jugular catheter as described. Improving right lower lobe pneumonia. GI Bleed Scan Nuclear Medicine 01/04/20 00:00 IMPRESSION: EVIDENCE OF ACTIVE GASTROINTESTINAL BLEEDING. POINT OF ORIGIN IS IN THE RIGHT UPPER QUADRANT. Chest X-Ray 01/05/20 06:00 IMPRESSION: Improved but persistent patchy right basilar airspace disease and trace effusion. Abdomen Ultrasound 01/07/20 00:00 IMPRESSION: NO ABDOMINAL AORTIC ANEURYSM. IMPRESSION/RECOMMENDATION: 1. Diarrhea? Cause the patient's stool WBC is negative. C. difficile result is negative. Occult blood is positive. Will recheck to the patient C. difficile. 2. Acute anemia: The patient's hemoglobin is still dropping and today 7.9. Will give 2 units of packed RBCs. Will reconsult Dr. San tomorrow 3. Acute on chronic systolic heart failure.: This seems to be compensated. Continue the patient's Entresto and Coreg. Continue midodrine. We will convert the patient's Lasix to p.o. Lasix. 4. Acute nonoliguric renal failure. Patient with good urine output. Partly the BUN/creatinine secondary to patient's absorption of blood from his GI tract about the ligament of Treitz. Patient BUN/creatinine is improving. 5. Hypokalemia: The patient's potassium is normal after replacement. 6. Severe mitral regurgitation, and severe tricuspid regurgitation and severe pulmonary hypertension. 7. DIlated cardiomyopathy and ischemic cardiomyopathy with severely reduced LV ejection fraction. Continue beta-abhishek and Entresto. Continue Lasix. 8.. COPD: At present no acute exacerbation. Will change albuterol nebulizer treatment to Xopenex treatment 9. Coronary artery disease. History of old myocardial infarction and history of coronary bypass graft surgery. No anginal symptoms. Continue anti-CAD medication, as being down now. Due to her drop in blood pressure effect of nitrates this has been held. 10. History of hypertension: Blood pressure well controlled 11. History of AICD: No firing of his AICD recently. 12. Peripheral vascular disease: History of past history of left femoropopliteal bypass surgery. Abdominal ultrasound shows no evidence of abdominal aortic aneurysm 13 History of pancytopenia 14. Tobacco abuse disorder. We will continue the patient on NicoDerm patch 15. History of facial skin cancer. The patient will be requiring radiation treatment as per Dr. Domingo, radiation oncologist in [place]. 16. Elevated digoxin level without any evidence of digitoxicity. We will discontinue the patient's digoxin. The patient is low back to 1.7. But in view of the patient's renal insufficiency will not reinstitute digoxin. 17. Upper GI bleed. There is, at present, no evidence of acute ongoing bleeding. Will observe check the patient's hemoglobin. Bleed. 18. Hypotension: Resolved on inotropes. We will try to wean the patient off dobutamine, dopamine and vasopressin. 19. Back pain. Patient has history of back surgery and chronic back pain. This is improved with morphine. There is no abdominal aortic aneurysm we In view of the patient's diarrhea will stop the patient's Coreg. Will hold the patient's Entresto. We will DC the patient Pepcid and place the patient on martinez toprazole. Will repeat C. difficile labs in the a.m. again to make sure were not missing C. difficile colitis. Will give loperamide [id number]. Medications reviewed. Medical regimen management plan discussed with the patient's daughter. Medical decision making is of high complexity. 40 minutes spent with patient more than 50% of time spent in direct patient care.
[2020-01-11 09:19] LABS: HEMOGLOBIN 7.9 g/dL (13.5-17.0)
[2020-01-11] MEDS ORDERED: NORMAL SALINE 250 ML IV PRN ×2 (10:03)
[2020-01-11] MEDS: MIDODRINE HCL 5 MG TABLET PO SCH ×3 (10:57→18:01)
[2020-01-11] MEDS: FUROSEMIDE 40 MG TABLET PO SCH (10:57)
[2020-01-11] MEDS: FLUOXETINE HCL 20 MG CAPSULE PO SCH (10:57)
[2020-01-11] MEDS: NICOTINE 14 MG/24 HR PATCH.TD24 TD SCH (10:57)
[2020-01-11] MEDS: FLUTICASONE/UMECLIDIN/VILANTER 100-62.5-25 MCG/DOSE IH SCH (10:57)
[2020-01-11] MEDS: MULTIVITS W-MIN/IRON SOLN 60 ML PO SCH (10:57)
[2020-01-11] MEDS: ENOXAPARIN SODIUM INJ 40 MG/0.4 ML DISP.SYRIN SUBCUT SCH (10:58)
[2020-01-11 11:36] LABS: C DIFFICILE GDH NEGATIVE (NEGATIVE)
[2020-01-11 12:46] LABS: ALKALINE PHOSPHATASE 175 U/L (38-126); ANION GAP 5 (5-19); ASPARTATE AMINO TRANSFERASE 77 U/L (17-59); BILIRUBIN,DIRECT 0.5 mg/dL (0.0-0.4); BILIRUBIN,TOTAL 1.1 mg/dL (0.2-1.3); BLOOD UREA NITROGEN 70 mg/dL (7-20); CALCIUM 7.7 mg/dL (8.4-10.2); CARBON DIOXIDE 29 mmol/L (22-30); CHLORIDE 98 mmol/L (98-107); GLUCOSE 73 mg/dL (75-110); POTASSIUM 4.1 mmol/L (3.6-5.0)
[2020-01-11] MEDS ORDERED: FUROSEMIDE INJ/PF 20 MG/2 ML SDV IV ONE (17:45)
[2020-01-12] MEDS: LOPERAMIDE HCL 2 MG CAPSULE PO SCH ×5 (01:16→23:29)
[2020-01-12 01:46] LABS: ABSOLUTE LYMPHOCYTES (AUTO) 0.4 10^3/uL (0.5-4.7); LYMPHOCYTES % (AUTO) 5.7 % (13-45); PLATELET COUNT 103 10^3/uL (150-450); SEGMENTED NEUTROPHILS % (AUTO) 83.5 % (42-78); TOTAL CELLS COUNTED % (AUTO) 100 %
[2020-01-12 02:04] LABS: ABSOLUTE EOSINOPHILS # (AUTO) 0.1 10^3/uL (0.0-0.6); ABSOLUTE MONOCYTES (AUTO) 0.6 10^3/uL (0.1-1.4); ABSOLUTE NEUT (AUTO) 5.5 10^3/uL (1.7-8.2); BASOPHILS % (AUTO) 0.5 % (0-2); EOSINOPHILS % (AUTO) 0.9 % (0-6); MEAN CORPUSCULAR HEMOGLOBIN 32.7 pg (27.0-33.4); MEAN CORPUSCULAR HGB CONC 35.7 g/dL (32.0-36.0); MEAN CORPUSCULAR VOLUME 92 fl (80-97); MONOCYTES % (AUTO) 9.4 % (3-13); RED BLOOD COUNT 3.05 10^6/uL (4.35-5.55); RED CELL DISTRIBUTION WIDTH 14.8 % (11.5-14.0); WHITE BLOOD COUNT 6.6 10^3/uL (4.0-10.5)
[2020-01-12] MEDS: PANTOPRAZOLE SODIUM 40 MG TABLET.DR PO SCH ×2 (05:08→17:18)
[2020-01-12] MEDS: ONDANSETRON HCL INJ/PF 4 MG/2 ML SDV IV PRN ×2 (10:09→17:00)
[2020-01-12] MEDS: MIDODRINE HCL 5 MG TABLET PO SCH ×3 (10:16→18:50)
[2020-01-12] MEDS: FUROSEMIDE 40 MG TABLET PO SCH (10:17)
[2020-01-12] MEDS: FLUOXETINE HCL 20 MG CAPSULE PO SCH (10:18)
[2020-01-12] MEDS: NICOTINE 14 MG/24 HR PATCH.TD24 TD SCH (10:19)
[2020-01-12] MEDS: MORPHINE SULFATE 10 MG/ML INJ IV PRN ×3 (10:29→21:55)
[2020-01-12] MEDS: ENOXAPARIN SODIUM INJ 40 MG/0.4 ML DISP.SYRIN SUBCUT SCH (11:02)
[2020-01-12] MEDS: MULTIVITS W-MIN/IRON SOLN 60 ML PO SCH (11:16)
[2020-01-12] MEDS: FLUTICASONE/UMECLIDIN/VILANTER 100-62.5-25 MCG/DOSE IH SCH (11:17)
[2020-01-12 11:28] LABS: ANION GAP 6 (5-19); BLOOD UREA NITROGEN 73 mg/dL (7-20); CALCIUM 7.5 mg/dL (8.4-10.2); CARBON DIOXIDE 28 mmol/L (22-30); CHLORIDE 99 mmol/L (98-107); GLUCOSE 84 mg/dL (75-110); POTASSIUM 4.4 mmol/L (3.6-5.0)
--- NOTE | 2020-01-12 12:31 | Progress Note ---
Provider Note Provider Note: CARDIOLOGY PROGRESS NOTE by Dr. Jay Singh on 01/12/2020. SUBJECTIVE: The patient continues to have a drop in hemoglobin and diarrhea. His stool is occult blood positive. Yesterday's hemoglobin went down to 7.9 and received 2 units of blood. His hemoglobin this morning is 10. He continues to have diarrhea he also complains of some back pain and abdominal pain. His repeat C. difficile testing was negative. Will check the patient's abdominal and pelvis CT today. There is no arrhythmia seen on the monitor. The patient denies any shortness of breath, PND orthopnea or anginal symptoms. There is no firing of his AICD. He complains of generalized fatigue and weakness especially after bowel movement. PHYSICAL EXAMINATION: The patient appears to be chronically ill and malnourished. Selected Entries 01/12/20 07:47 Temperature 98.0 F Temperature Oral Source Pulse Rate 60 Respiratory 18 Rate Blood Pressure 103/51 L Blood Pressure 68 Mean BP Location Right Arm BP Position Supine O2 Sat by Pulse 100 Oximetry Oxygen Delivery Room Air Method HEAD: Is atraumatic normocephalic. EYES: Pupils are equal round regular reactive to light and accommodation. Extraocular movements are normal. There is no conjunctival pallor. There is no scleral icterus. EARS: Tympanic membranes are intact. External auditory canals are clear. NOSE: There is no deviated nasal septum. There is no inflammation of the nasal mucous membrane. MOUTH: Mucous membranes of mouth are dry tongue is still dry. THROAT: There is no redness of the oropharynx. There is no exudates. 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 There is no catie-care ecchymosis. NECK: Supple. There is no JVD present. Carotids are equal there is no bruit. There is no lymphadenopathy. There is no goiter. There is no accessory muscle respiration use. Trachea central. LUNGS: Shows diminished air entry prolonged expiration there is bibasilar rales of CHF. There is no rhonchi or wheezing. There is no chest wall tenderness on palpation. On palpation there is hyperresonance. There is no bibasilar rales of heart failure. HEART: S1-S2 is heard. There is no S3 gallop. There is no S4 gallop there is systolic murmur left sternal border and the apex there is no rub. ABDOMEN: Soft. There is no hepatosplenomegaly. Bowel sounds are normal. There is no hepatosplenomegaly. EXTREMITIES: There is diminished bilateral femoral pulses with bruits. 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 He has bilateral femoral bruits present. Leg pulses are diminished. There is no pedal edema bilaterally. There is no DVT or cellulitis. There is no cyanosis or clubbing. 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 PSYCHIATRIC: Patient is a patient j udgment insight are intact his affect is normal, he is not agitated or anxious. The patient's 24-hour intake is 993 mL. Output was 1485 mL. Labs- Entire Visit 12/24/19 12/24/19 12/24/19 21:19 21:19 21:19 WBC 5.7 RBC 3.66 L Hgb 12.5 L Hct 38.3 MCV 105 H MCH 34.2 H MCHC 32.6 RDW 19.4 H Plt Count 45 L Lymph % (Auto) 5.9 L [place] % (Auto) 6.2 Eos % (Auto) 0.0 Baso % (Auto) 0.4 Reticulocyte # Absolute Neuts (auto) 4.9 Absolute Lymphs (auto) 0.3 L Absolute Monos (auto) 0.4 Absolute Eos (auto) 0.0 Absolute Basos (auto) 0.0 Total Counted Seg Neutrophils % 87.5 H Seg Neuts % (Manual) Band Neutrophils % Lymphocytes % (Manual) Monocytes % (Manual) Eosinophils % (Manual) Basophils % (Manual) Abs Neuts (Manual) Abs Lymphs (Manual) Abs Monocytes (Manual) Absolute Eos (Manual) Abs Basophils (Manual) Platelet Estimate Platelet Comment Anisocytosis Retic Count (auto) PT 18.6 H INR 1.54 APTT 36.0 H Sodium 136.2 L Potassium 4.3 Chloride 105 Carbon Dioxide 21 L Anion Gap 10 BUN 68 H Creatinine 1.60 H Est GFR ( Amer) 52 L Est GFR (MDRD) Non-Af 43 L Glucose 92 POC Glucose Calcium 9.0 Phosphorus 4.0 Magnesium 2.5 H Iron TIBC % Saturation Ferritin Total Bilirubin 2.4 H Direct Bilirubin 1.4 H Neonat Total Bilirubin Not Reportable Neonat Direct Bilirubin Not Reportable Neonat Indirect Bili Not Reportable AST 45 ALT 23 Alkaline Phosphatase 185 H Creatine Kinase Troponin I NT-Pro-B Natriuret Pep Total Protein 6.0 L Albumin 3.3 L Vitamin B12 Folate TSH Free T4 Urine Color Urine Appearance Urine pH Ur Specific Rickman Urine Protein Urine Glucose (UA) Urine Ketones Urine Blood Urine Nitrite Urine Nitrite (Reflex) Urine Bilirubin Urine Urobilinogen Ur Leukocyte Esterase Leukocyte Esterase Rfl Urine WBC (Auto) Urine RBC (Auto) U Hyaline Cast (Auto) Urine Bacteria (Auto) Squamous Epi Cells Auto Urine Mucus (Auto) Urine Ascorbic Acid Stool Occult Blood Stool for White Cells Stl C. Difficile GDH Ag Stl C.difficile Tox A&B Digoxin < 0.40 L COVID-19 Source Slides for Path Review Blood Type Blood Type Confirm Antibody Screen Crossmatch 12/24/19 12/25/19 12/25/19 21:19 02:36 02:36 WBC 6.2 RBC 3.16 L Hgb 10.9 L Hct 32.5 L MCV 103 H MCH 34.4 H MCHC 33.4 RDW 19.2 H Plt Count 43 L Lymph % (Auto) [place] % (Auto) Eos % (Auto) Baso % (Auto) Reticulocyte # Absolute Neuts (auto) Absolute Lymphs (auto) Absolute Monos (auto) Absolute Eos (auto) Absolute Basos (auto) Total Counted Seg Neutrophils % Seg Neuts % (Manual) Band Neutrophils % Lymphocytes % (Manual) Monocytes % (Manual) Eosinophils % (Manual) Basophils % (Manual) Abs Neuts (Manual) Abs Lymphs (Manual) Abs Monocytes (Manual) Absolute Eos (Manual) Abs Basophils (Manual) Platelet Estimate Platelet Comment Anisocytosis Retic Count (auto) PT INR APTT Sodium 137.8 Potassium 4.1 Chloride 107 Carbon Dioxide 20 L Anion Gap 11 BUN 69 H Creatinine 1.60 H Est GFR ( Amer) 52 L Est GFR (MDRD) Non-Af 43 L Glucose 98 POC Glucose Calcium 9.0 Phosphorus 3.9 Magnesium 2.4 H Iron TIBC % Saturation Ferritin Total Bilirubin 2.3 H Direct Bilirubin 1.4 H Neonat Total Bilirubin Not Reportable Neonat Direct Bilirubin Not Reportable Neonat Indirect Bili Not Reportable AST 42 ALT 22 Alkaline Phosphatase 185 H Creatine Kinase Troponin I 0.043 NT-Pro-B Natriuret Pep 144463 H Total Protein 5.5 L Albumin 3.0 L Vitamin B12 Folate TSH Free T4 Urine Color Urine Appearance Urine pH Ur Specific Rickman Urine Protein Urine Glucose (UA) Urine Ketones Urine Blood Urine Nitrite Urine Nitrite (Reflex) Urine Bilirubin Urine Urobilinogen Ur Leukocyte Esterase Leukocyte Esterase Rfl Urine WBC (Auto) Urine RBC (Auto) U Hyaline Cast (Auto) Urine Bacteria (Auto) Squamous Epi Cells Auto Urine Mucus (Auto) Urine Ascorbic Acid Stool Occult Blood Stool for White Cells Stl C. Difficile GDH Ag Stl C.difficile Tox A&B Digoxin COVID-19 Source Slides for Path Review Blood Type Blood Type Confirm Antibody Screen Crossmatch 12/25/19 12/25/19 12/25/19 02:36 02:36 04:50 WBC RBC Hgb Hct MCV MCH MCHC RDW Plt Count Lymph % (Auto) [place] % (Auto) Eos % (Auto) Baso % (Auto) Reticulocyte # Absolute Neuts (auto) Absolute Lymphs (auto) Absolute Monos (auto) Absolute Eos (auto) Absolute Basos (auto) Total Counted Seg Neutrophils % Seg Neuts % (Manual) Band Neutrophils % Lymphocytes % (Manual) Monocytes % (Manual) Eosinophils % (Manual) Basophils % (Manual) Abs Neuts (Manual) Abs Lymphs (Manual) Abs Monocytes (Manual) Absolute Eos (Manual) Abs Basophils (Manual) Platelet Estimate Platelet Comment Anisocytosis Retic Count (auto) PT INR APTT Sodium Potassium Chloride Carbon Dioxide Anion Gap BUN Creatinine Est GFR ( Amer) Est GFR (MDRD) Non-Af Glucose POC Glucose Calcium Phosphorus Magnesium Iron TIBC % Saturation Ferritin Total Bilirubin Direct Bilirubin Neonat Total Bilirubin Neonat Direct Bilirubin Neonat Indirect Bili AST ALT Alkaline Phosphatase Creatine Kinase Troponin I 0.045 NT-Pro-B Natriuret Pep Total Protein Albumin Vitamin B12 Folate TSH 5.46 H Free T4 0.99 Urine Color STRAW Urine Appearance CLEAR Urine pH 5.0 Ur Specific Rickman 1.006 Urine Protein NEGATIVE Urine Glucose (UA) NEGATIVE Urine Ketones NEGATIVE Urine Blood SMALL H Urine Nitrite Urine Nitrite (Reflex) NEGATIVE Urine Bilirubin NEGATIVE Urine Urobilinogen NEGATIVE Ur Leukocyte Esterase Leukocyte Esterase Rfl NEGATIVE Urine WBC (Auto) Urine RBC (Auto) 0 U Hyaline Cast (Auto) 1 Urine Bacteria (Auto) Squamous Epi Cells Auto <1 Urine Mucus (Auto) RARE Urine Ascorbic Acid NEGATIVE Stool Occult Blood Stool for White Cells Stl C. Difficile GDH Ag Stl C.difficile Tox A&B Digoxin COVID-19 Source Slides for Path Review Blood Type Blood Type Confirm Antibody Screen Crossmatch 12/25/19 12/26/19 12/26/19 09:38 09:20 09:20 WBC 3.2 L RBC 2.72 L Hgb 9.4 L Hct 27.9 L MCV 103 H MCH 34.6 H MCHC 33.8 RDW 19.2 H Plt Count 41 L Lymph % (Auto) 8.8 L [place] % (Auto) 7.1 Eos % (Auto) 0.8 Baso % (Auto) 0.1 Reticulocyte # Absolute Neuts (auto) 2.6 Absolute Lymphs (auto) 0.3 L Absolute Monos (auto) 0.2 Absolute Eos (auto) 0.0 Absolute Basos (auto) 0.0 Total Counted Seg Neutrophils % 83.2 H Seg Neuts % (Manual) Band Neutrophils % Lymphocytes % (Manual) Monocytes % (Manual) Eosinophils % (Manual) Basophils % (Manual) Abs Neuts (Manual) Abs Lymphs (Manual) Abs Monocytes (Manual) Absolute Eos (Manual) Abs Basophils (Manual) Platelet Estimate Platelet Comment Anisocytosis Retic Count (auto) PT INR APTT Sodium 135.8 L Potassium 3.3 L Chloride 104 Carbon Dioxide 25 Anion Gap 7 BUN 58 H Creatinine 1.52 H Est GFR ( Amer) 55 L Est GFR (MDRD) Non-Af 46 L Glucose 62 L POC Glucose Calcium 8.1 L Phosphorus 2.7 Magnesium 2.0 Iron TIBC % Saturation Ferritin Total Bilirubin 1.5 H Direct Bilirubin 1.0 H Neonat Total Bilirubin Not Reportable Neonat Direct Bilirubin Not Reportable Neonat Indirect Bili Not Reportable AST 38 ALT 19 Alkaline Phosphatase 182 H Creatine Kinase 47 L Troponin I 0.045 NT-Pro-B Natriuret Pep Total Protein 4.7 L Albumin 2.4 L Vitamin B12 Folate TSH Free T4 Urine Color Urine Appearance Urine pH Ur Specific Rickman Urine Protein Urine Glucose (UA) Urine Ketones Urine Blood Urine Nitrite Urine Nitrite (Reflex) Urine Bilirubin Urine Urobilinogen Ur Leukocyte Esterase Leukocyte Esterase Rfl Urine WBC (Auto) Urine RBC (Auto) U Hyaline Cast (Auto) Urine Bacteria (Auto) Squamous Epi Cells Auto Urine Mucus (Auto) Urine Ascorbic Acid Stool Occult Blood Stool for White Cells Stl C. Difficile GDH Ag Stl C.difficile Tox A&B Digoxin COVID-19 Source Slides for Path Review Blood Type Blood Type Confirm Antibody Screen Crossmatch 12/26/19 12/26/19 12/27/19 09:20 10:33 05:25 WBC RBC Hgb Hct MCV MCH MCHC RDW Plt Count Lymph % (Auto) [place] % (Auto) Eos % (Auto) Baso % (Auto) Reticulocyte # Absolute Neuts (auto) Absolute Lymphs (auto) Absolute Monos (auto) Absolute Eos (auto) Absolute Basos (auto) Total Counted Seg Neutrophils % Seg Neuts % (Manual) Band Neutrophils % Lymphocytes % (Manual) Monocytes % (Manual) Eosinophils % (Manual) Basophils % (Manual) Abs Neuts (Manual) Abs Lymphs (Manual) Abs Monocytes (Manual) Absolute Eos (Manual) Abs Basophils (Manual) Platelet Estimate Platelet Comment Anisocytosis Retic Count (auto) PT INR APTT Sodium Potassium Chloride Carbon Dioxide Anion Gap BUN Creatinine Est GFR ( Amer) Est GFR (MDRD) Non-Af Glucose POC Glucose 127 H Calcium Phosphorus Magnesium Iron TIBC % Saturation Ferritin Total Bilirubin Direct Bilirubin Neonat Total Bilirubin Neonat Direct Bilirubin Neonat Indirect Bili AST ALT Alkaline Phosphatase Creatine Kinase Troponin I 0.040 NT-Pro-B Natriuret Pep 32126 H Total Protein Albumin Vitamin B12 Folate TSH 4.59 Free T4 Urine Color Urine Appearance Urine pH Ur Specific Rickman Urine Protein Urine Glucose (UA) Urine Ketones Urine Blood Urine Nitrite Urine Nitrite (Reflex) Urine Bilirubin Urine Urobilinogen Ur Leukocyte Esterase Leukocyte Esterase Rfl Urine WBC (Auto) Urine RBC (Auto) U Hyaline Cast (Auto) Urine Bacteria (Auto) Squamous Epi Cells Auto Urine Mucus (Auto) Urine Ascorbic Acid Stool Occult Blood Stool for White Cells Stl C. Difficile GDH Ag Stl C.difficile Tox A&B Digoxin COVID-19 Source Slides for Path Review Blood Type Blood Type Confirm Antibody Screen Crossmatch 12/27/19 12/27/19 12/28/19 05:25 05:25 08:17 WBC 3.4 L 4.7 RBC 2.81 L 3.38 L Hgb 9.6 L 11.5 L Hct 28.8 L 35.1 L MCV 103 H 104 H MCH 34.3 H 34.0 H MCHC 33.4 32.8 RDW 19.0 H 19.2 H Plt Count 44 L 56 L Lymph % (Auto) [place] % (Auto) Eos % (Auto) Baso % (Auto) Reticulocyte # Absolute Neuts (auto) Absolute Lymphs (auto) Absolute Monos (auto) Absolute Eos (auto) Absolute Basos (auto) Total Counted Seg Neutrophils % Seg Neuts % (Manual) Band Neutrophils % Lymphocytes % (Manual) Monocytes % (Manual) Eosinophils % (Manual) Basophils % (Manual) Abs Neuts (Manual) Abs Lymphs (Manual) Abs Monocytes (Manual) Absolute Eos (Manual) Abs Basophils (Manual) Platelet Estimate Platelet Comment Anisocytosis Retic Count (auto) PT INR APTT Sodium 135.6 L Potassium 3.4 L Chloride 104 Carbon Dioxide 25 Anion Gap 7 BUN 59 H Creatinine 1.33 H Est GFR ( Amer) > 60 Est GFR (MDRD) Non-Af 53 L Glucose 108 POC Glucose Calcium 7.9 L Phosphorus Magnesium 1.9 Iron TIBC % Saturation Ferritin Total Bilirubin Direct Bilirubin Neonat Total Bilirubin Neonat Direct Bilirubin Neonat Indirect Bili AST ALT Alkaline Phosphatase Creatine Kinase Troponin I NT-Pro-B Natriuret Pep Total Protein Albumin Vitamin B12 Folate TSH Free T4 Urine Color Urine Appearance Urine pH Ur Specific Rickman Urine Protein Urine Glucose (UA) Urine Ketones Urine Blood Urine Nitrite Urine Nitrite (Reflex) Urine Bilirubin Urine Urobilinogen Ur Leukocyte Esterase Leukocyte Esterase Rfl Urine WBC (Auto) Urine RBC (Auto) U Hyaline Cast (Auto) Urine Bacteria (Auto) Squamous Epi Cells Auto Urine Mucus (Auto) Urine Ascorbic Acid Stool Occult Blood Stool for White Cells Stl C. Difficile GDH Ag Stl C.difficile Tox A&B Digoxin COVID-19 Source Slides for Path Review Blood Type Blood Type Confirm Antibody Screen Crossmatch 12/28/19 12/28/19 12/30/19 08:17 20:54 03:40 WBC Cancelled RBC Cancelled Hgb Cancelled Hct Cancelled MCV Cancelled MCH Cancelled MCHC Cancelled RDW Cancelled Plt Count Cancelled Lymph % (Auto) [place] % (Auto) Eos % (Auto) Baso % (Auto) Reticulocyte # Absolute Neuts (auto) Absolute Lymphs (auto) Absolute Monos (auto) Absolute Eos (auto) Absolute Basos (auto) Total Counted Seg Neutrophils % Seg Neuts % (Manual) Band Neutrophils % Lymphocytes % (Manual) Monocytes % (Manual) Eosinophils % (Manual) Basophils % (Manual) Abs Neuts (Manual) Abs Lymphs (Manual) Abs Monocytes (Manual) Absolute Eos (Manual) Abs Basophils (Manual) Platelet Estimate Cancelled Platelet Comment Anisocytosis Retic Count (auto) PT INR APTT Sodium 138.4 Potassium 4.5 Chloride 106 Carbon Dioxide 27 Anion Gap 5 BUN 47 H Creatinine 1.15 Est GFR ( Amer) > 60 Est GFR (MDRD) Non-Af > 60 Glucose 106 POC Glucose Calcium 8.3 L Phosphorus 1.6 L Magnesium 2.1 Iron TIBC % Saturation Ferritin Total Bilirubin 1.4 H Direct Bilirubin 0.9 H Neonat Total Bilirubin Not Reportable Neonat Direct Bilirubin Not Reportable Neonat Indirect Bili Not Reportable AST 55 ALT 30 Alkaline Phosphatase 233 H Creatine Kinase Troponin I NT-Pro-B Natriuret Pep Total Protein 5.2 L Albumin 2.6 L Vitamin B12 Folate TSH Free T4 Urine Color STRAW Urine Appearance CLEAR Urine pH 8.0 Ur Specific Rickman 1.005 Urine Protein NEGATIVE Urine Glucose (UA) NEGATIVE Urine Ketones NEGATIVE Urine Blood MODERATE H Urine Nitrite NEGATIVE Urine Nitrite (Reflex) Urine Bilirubin NEGATIVE Urine Urobilinogen NEGATIVE Ur Leukocyte Esterase NEGATIVE Leukocyte Esterase Rfl Urine WBC (Auto) 1 Urine RBC (Auto) 14 U Hyaline Cast (Auto) 1 Urine Bacteria (Auto) Squamous Epi Cells Auto Urine Mucus (Auto) RARE Urine Ascorbic Acid NEGATIVE Stool Occult Blood Stool for White Cells Stl C. Difficile GDH Ag Stl C.difficile Tox A&B Digoxin COVID-19 Source Slides for Path Review Cancelled Blood Type Blood Type Confirm Antibody Screen Crossmatch 12/30/19 12/30/19 12/30/19 03:40 05:15 09:49 WBC 5.9 RBC 2.72 L Hgb 9.3 L D Hct 26.9 L MCV 99 H D MCH 34.3 H MCHC 34.6 RDW 18.4 H Plt Count 85 L Lymph % (Auto) [place] % (Auto) Eos % (Auto) Baso % (Auto) Reticulocyte # Absolute Neuts (auto) Absolute Lymphs (auto) Absolute Monos (auto) Absolute Eos (auto) Absolute Basos (auto) Total Counted Seg Neutrophils % Seg Neuts % (Manual) Band Neutrophils % Lymphocytes % (Manual) Monocytes % (Manual) Eosinophils % (Manual) Basophils % (Manual) Abs Neuts (Manual) Abs Lymphs (Manual) Abs Monocytes (Manual) Absolute Eos (Manual) Abs Basophils (Manual) Platelet Estimate Platelet Comment Anisocytosis Retic Count (auto) PT INR APTT Sodium 140.2 Potassium 4.0 Chloride 98 Carbon Dioxide 36 H Anion Gap 6 BUN 67 H Creatinine 1.21 Est GFR ( Amer) > 60 Est GFR (MDRD) Non-Af > 60 Glucose 109 POC Glucose 133 H Calcium 8.5 Phosphorus Magnesium Iron TIBC % Saturation Ferritin Total Bilirubin 1.5 H Direct Bilirubin 0.7 H Neonat Total Bilirubin Not Reportable Neonat Direct Bilirubin Not Reportable Neonat Indirect Bili Not Reportable AST 44 ALT 28 Alkaline Phosphatase 202 H Creatine Kinase Troponin I NT-Pro-B Natriuret Pep Total Protein 5.2 L Albumin 2.7 L Vitamin B12 Folate TSH Free T4 Urine Color Urine Appearance Urine pH Ur Specific Rickman Urine Protein Urine Glucose (UA) Urine Ketones Urine Blood Urine Nitrite Urine Nitrite (Reflex) Urine Bilirubin Urine Urobilinogen Ur Leukocyte Esterase Leukocyte Esterase Rfl Urine WBC (Auto) Urine RBC (Auto) U Hyaline Cast (Auto) Urine Bacteria (Auto) Squamous Epi Cells Auto Urine Mucus (Auto) Urine Ascorbic Acid Stool Occult Blood Stool for White Cells Stl C. Difficile GDH Ag Stl C.difficile Tox A&B Digoxin 1.71 COVID-19 Source Slides for Path Review Blood Type Blood Type Confirm Antibody Screen Crossmatch 12/31/19 12/31/19 12/31/19 03:45 03:45 04:40 WBC Cancelled 5.5 RBC Cancelled 1.86 L Hgb Cancelled 6.3 L D Hct Cancelled 18.8 L MCV Cancelled 101 H MCH Cancelled 33.9 H MCHC Cancelled 33.6 RDW Cancelled 18.3 H Plt Count Cancelled 87 L Lymph % (Auto) 8.3 L [place] % (Auto) 8.7 Eos % (Auto) 0.5 Baso % (Auto) 0.3 Reticulocyte # Absolute Neuts (auto) 4.5 Absolute Lymphs (auto) 0.5 Absolute Monos (auto) 0.5 Absolute Eos (auto) 0.0 Absolute Basos (auto) 0.0 Total Counted Seg Neutrophils % 82.2 H Seg Neuts % (Manual) Band Neutrophils % Lymphocytes % (Manual) Monocytes % (Manual) Eosinophils % (Manual) Basophils % (Manual) Abs Neuts (Manual) Abs Lymphs (Manual) Abs Monocytes (Manual) Absolute Eos (Manual) Abs Basophils (Manual) Platelet Estimate Cancelled Platelet Comment Anisocytosis Retic Count (auto) PT INR APTT Sodium 138.2 Potassium 4.4 Chloride 98 Carbon Dioxide 35 H Anion Gap 5 BUN 80 H Creatinine 1.43 H Est GFR ( Amer) > 60 Est GFR (MDRD) Non-Af 49 L Glucose 115 H POC Glucose Calcium 8.2 L Phosphorus Magnesium Iron TIBC % Saturation Ferritin Total Bilirubin 1.1 Direct Bilirubin 0.7 H Neonat Total Bilirubin Not Reportable Neonat Direct Bilirubin Not Reportable Neonat Indirect Bili Not Reportable AST 45 ALT 29 Alkaline Phosphatase 180 H Creatine Kinase Troponin I NT-Pro-B Natriuret Pep Total Protein 4.6 L Albumin 2.4 L Vitamin B12 Folate TSH Free T4 Urine Color Urine Appearance Urine pH Ur Specific Rickman Urine Protein Urine Glucose (UA) Urine Ketones Urine Blood Urine Nitrite Urine Nitrite (Reflex) Urine Bilirubin Urine Urobilinogen Ur Leukocyte Esterase Leukocyte Esterase Rfl Urine WBC (Auto) Urine RBC (Auto) U Hyaline Cast (Auto) Urine Bacteria (Auto) Squamous Epi Cells Auto Urine Mucus (Auto) Urine Ascorbic Acid Stool Occult Blood Stool for White Cells Stl C. Difficile GDH Ag Stl C.difficile Tox A&B Digoxin COVID-19 Source Slides for Path Review Cancelled Blood Type Blood Type Confirm Antibody Screen Crossmatch 12/31/19 12/31/19 12/31/19 06:03 06:48 21:44 WBC RBC Hgb Hct MCV MCH MCHC RDW Plt Count Lymph % (Auto) [place] % (Auto) Eos % (Auto) Baso % (Auto) Reticulocyte # Absolute Neuts (auto) Absolute Lymphs (auto) Absolute Monos (auto) Absolute Eos (auto) Absolute Basos (auto) Total Counted Seg Neutrophils % Seg Neuts % (Manual) Band Neutrophils % Lymphocytes % (Manual) Monocytes % (Manual) Eosinophils % (Manual) Basophils % (Manual) Abs Neuts (Manual) Abs Lymphs (Manual) Abs Monocytes (Manual) Absolute Eos (Manual) Abs Basophils (Manual) Platelet Estimate Platelet Comment Anisocytosis Retic Count (auto) PT INR APTT Sodium Potassium Chloride Carbon Dioxide Anion Gap BUN Creatinine Est GFR ( Amer) Est GFR (MDRD) Non-Af Glucose POC Glucose Calcium Phosphorus Magnesium Iron TIBC % Saturation Ferritin Total Bilirubin Direct Bilirubin Neonat Total Bilirubin Neonat Direct Bilirubin Neonat Indirect Bili AST ALT Alkaline Phosphatase Creatine Kinase Troponin I NT-Pro-B Natriuret Pep Total Protein Albumin Vitamin B12 Folate TSH Free T4 Urine Color Urine Appearance Urine pH Ur Specific Rickman Urine Protein Urine Glucose (UA) Urine Ketones Urine Blood Urine Nitrite Urine Nitrite (Reflex) Urine Bilirubin Urine Urobilinogen Ur Leukocyte Esterase Leukocyte Esterase Rfl Urine WBC (Auto) Urine RBC (Auto) U Hyaline Cast (Auto) Urine Bacteria (Auto) Squamous Epi Cells Auto Urine Mucus (Auto) Urine Ascorbic Acid Stool Occult Blood POSITIVE Stool for White Cells Stl C. Difficile GDH Ag Stl C.difficile Tox A&B Digoxin COVID-19 Source Slides for Path Review Blood Type B POSITIVE Blood Type Confirm B POSITIVE Antibody Screen NEGATIVE Crossmatch See Detail 01/01/20 01/01/20 01/02/20 04:10 04:10 04:10 WBC 5.3 RBC 2.94 L Hgb 9.6 L D Hct 27.4 L MCV 93 D MCH 32.6 MCHC 34.9 RDW 19.0 H Plt Count 74 L Lymph % (Auto) [place] % (Auto) Eos % (Auto) Baso % (Auto) Reticulocyte # Absolute Neuts (auto) Absolute Lymphs (auto) Absolute Monos (auto) Absolute Eos (auto) Absolute Basos (auto) Total Counted Seg Neutrophils % Seg Neuts % (Manual) Band Neutrophils % Lymphocytes % (Manual) Monocytes % (Manual) Eosinophils % (Manual) Basophils % (Manual) Abs Neuts (Manual) Abs Lymphs (Manual) Abs Monocytes (Manual) Absolute Eos (Manual) Abs Basophils (Manual) Platelet Estimate Platelet Comment Anisocytosis Retic Count (auto) PT INR APTT Sodium 137.4 Potassium 4.2 Chloride 98 Carbon Dioxide 35 H Anion Gap 4 L BUN 87 H Creatinine 1.42 H Est GFR ( Amer) > 60 Est GFR (MDRD) Non-Af 50 L Glucose 99 POC Glucose Calcium 8.1 L Phosphorus Magnesium Iron TIBC % Saturation Ferritin Total Bilirubin 1.1 Direct Bilirubin 0.7 H Neonat Total Bilirubin Not Reportable Neonat Direct Bilirubin Not Reportable Neonat Indirect Bili Not Reportable AST 185 H ALT 85 H Alkaline Phosphatase 264 H Creatine Kinase Troponin I NT-Pro-B Natriuret Pep Total Protein 4.5 L Albumin 2.3 L Vitamin B12 Folate TSH Free T4 Urine Color Urine Appearance Urine pH Ur Specific Rickman Urine Protein Urine Glucose (UA) Urine Ketones Urine Blood Urine Nitrite Urine Nitrite (Reflex) Urine Bilirubin Urine Urobilinogen Ur Leukocyte Esterase Leukocyte Esterase Rfl Urine WBC (Auto) Urine RBC (Auto) U Hyaline Cast (Auto) Urine Bacteria (Auto) Squamous Epi Cells Auto Urine Mucus (Auto) Urine Ascorbic Acid Stool Occult Blood Stool for White Cells Stl C. Difficile GDH Ag Stl C.difficile Tox A&B Digoxin 2.30 H* COVID-19 Source Slides for Path Review Blood Type Blood Type Confirm Antibody Screen Crossmatch 01/02/20 01/02/20 01/03/20 04:15 05:50 04:15 WBC 5.1 5.1 RBC 2.84 L 2.08 L Hgb 9.3 L 6.9 L D Hct 27.0 L 19.7 L MCV 95 94 MCH 32.7 32.9 MCHC 34.3 34.8 RDW 18.9 H 18.2 H Plt Count 91 L 96 L Lymph % (Auto) 11.1 L 11.5 L [place] % (Auto) 9.0 8.3 Eos % (Auto) 2.1 0.9 Baso % (Auto) 0.5 0.7 Reticulocyte # Absolute Neuts (auto) 3.9 4.0 Absolute Lymphs (auto) 0.6 0.6 Absolute Monos (auto) 0.5 0.4 Absolute Eos (auto) 0.1 0.0 Absolute Basos (auto) 0.0 0.0 Total Counted Seg Neutrophils % 77.3 78.6 H Seg Neuts % (Manual) Band Neutrophils % Lymphocytes % (Manual) Monocytes % (Manual) Eosinophils % (Manual) Basophils % (Manual) Abs Neuts (Manual) Abs Lymphs (Manual) Abs Monocytes (Manual) Absolute Eos (Manual) Abs Basophils (Manual) Platelet Estimate Platelet Comment Anisocytosis Retic Count (auto) PT INR APTT Sodium 136.4 L Potassium 4.2 Chloride 98 Carbon Dioxide 34 H Anion Gap 4 L BUN 91 H Creatinine 1.44 H Est GFR ( Amer) 59 L Est GFR (MDRD) Non-Af 49 L Glucose 95 POC Glucose Calcium 8.0 L Phosphorus Magnesium Iron TIBC % Saturation Ferritin Total Bilirubin 1.0 Direct Bilirubin 0.6 H Neonat Total Bilirubin Not Reportable Neonat Direct Bilirubin Not Reportable Neonat Indirect Bili Not Reportable AST 110 H ALT 75 H Alkaline Phosphatase 212 H Creatine Kinase Troponin I NT-Pro-B Natriuret Pep Total Protein 4.6 L Albumin 2.4 L Vitamin B12 Folate TSH Free T4 Urine Color Urine Appearance Urine pH Ur Specific [place] Urine Protein Urine Glucose (UA) Urine Ketones Urine Blood Urine Nitrite Urine Nitrite (Reflex) Urine Bilirubin Urine Urobilinogen Ur Leukocyte Esterase Leukocyte Esterase Rfl Urine WBC (Auto) Urine RBC (Auto) U Hyaline Cast (Auto) Urine Bacteria (Auto) Squamous Epi Cells Auto Urine Mucus (Auto) Urine Ascorbic Acid Stool Occult Blood Stool for White Cells Stl C. Difficile GDH Ag Stl C.difficile Tox A&B Digoxin COVID-19 Source Slides for Path Review Blood Type Blood Type Confirm Antibody Screen Crossmatch 01/03/20 01/03/20 01/03/20 04:15 05:25 17:40 WBC 7.2 RBC 2.89 L Hgb 9.4 L D Hct 26.5 L MCV 92 MCH 32.4 MCHC 35.4 RDW 15.7 H Plt Count 91 L Lymph % (Auto) 10.8 L [place] % (Auto) 9.5 Eos % (Auto) 0.3 Baso % (Auto) 0.4 Reticulocyte # Absolute Neuts (auto) 5.7 Absolute Lymphs (auto) 0.8 Absolute Monos (auto) 0.7 Absolute Eos (auto) 0.0 Absolute Basos (auto) 0.0 Total Counted Seg Neutrophils % 79.0 H Seg Neuts % (Manual) Band Neutrophils % Lymphocytes % (Manual) Monocytes % (Manual) Eosinophils % (Manual) Basophils % (Manual) Abs Neuts (Manual) Abs Lymphs (Manual) Abs Monocytes (Manual) Absolute Eos (Manual) Abs Basophils (Manual) Platelet Estimate Platelet Comment Anisocytosis Retic Count (auto) PT INR APTT Sodium Potassium Chloride Carbon Dioxide Anion Gap BUN Creatinine Est GFR ( Amer) Est GFR (MDRD) Non-Af Glucose POC Glucose Calcium Phosphorus Magnesium Iron TIBC % Saturation Ferritin Total Bilirubin Direct Bilirubin Neonat Total Bilirubin Neonat Direct Bilirubin Neonat Indirect Bili AST ALT Alkaline Phosphatase Creatine Kinase Troponin I NT-Pro-B Natriuret Pep Total Protein Albumin Vitamin B12 Folate TSH Free T4 Urine Color Urine Appearance Urine pH Ur Specific [place] Urine Protein Urine Glucose (UA) Urine Ketones Urine Blood Urine Nitrite Urine Nitrite (Reflex) Urine Bilirubin Urine Urobilinogen Ur Leukocyte Esterase Leukocyte Esterase Rfl Urine WBC (Auto) Urine RBC (Auto) U Hyaline Cast (Auto) Urine Bacteria (Auto) Squamous Epi Cells Auto Urine Mucus (Auto) Urine Ascorbic Acid Stool Occult Blood Stool for White Cells Stl C. Difficile GDH Ag Stl C.difficile Tox A&B Digoxin 1.88 COVID-19 Source Slides for Path Review Blood Type B POSITIVE Blood Type Confirm B POSITIVE Antibody Screen NEGATIVE Crossmatch See Detail 01/03/20 01/04/20 01/04/20 17:40 03:43 03:43 WBC 11.5 H RBC 4.56 Hgb 14.7 D Hct 41.7 MCV 92 MCH 32.2 MCHC 35.2 RDW 14.7 H Plt Count 75 L Lymph % (Auto) 6.7 L [place] % (Auto) 7.3 Eos % (Auto) 0.0 Baso % (Auto) 0.4 Reticulocyte # Absolute Neuts (auto) 9.8 H Absolute Lymphs (auto) 0.8 Absolute Monos (auto) 0.8 Absolute Eos (auto) 0.0 Absolute Basos (auto) 0.0 Total Counted Seg Neutrophils % 85.6 H Seg Neuts % (Manual) Band Neutrophils % Lymphocytes % (Manual) Monocytes % (Manual) Eosinophils % (Manual) Basophils % (Manual) Abs Neuts (Manual) Abs Lymphs (Manual) Abs Monocytes (Manual) Absolute Eos (Manual) Abs Basophils (Manual) Platelet Estimate Platelet Comment Anisocytosis Retic Count (auto) PT INR APTT Sodium 135.2 L 133.4 L Potassium 4.9 5.2 H Chloride 99 96 L Carbon Dioxide 32 H 31 H Anion Gap 4 L 6 BUN 111 H 116 H Creatinine 1.69 H 1.75 H Est GFR ( Amer) 49 L 47 L Est GFR (MDRD) Non-Af 41 L 39 L Glucose 113 H 147 H POC Glucose Calcium 7.9 L 8.4 Phosphorus Magnesium 2.7 H Iron TIBC % Saturation Ferritin Total Bilirubin 1.4 H Direct Bilirubin 0.7 H Neonat Total Bilirubin Not Reportable Neonat Direct Bilirubin Not Reportable Neonat Indirect Bili Not Reportable AST 103 H ALT 89 H Alkaline Phosphatase 237 H Creatine Kinase Troponin I NT-Pro-B Natriuret Pep Total Protein 5.1 L Albumin 2.7 L Vitamin B12 Folate TSH Free T4 Urine Color Urine Appearance Urine pH Ur Specific [place] Urine Protein Urine Glucose (UA) Urine Ketones Urine Blood Urine Nitrite Urine Nitrite (Reflex) Urine Bilirubin Urine Urobilinogen Ur Leukocyte Esterase Leukocyte Esterase Rfl Urine WBC (Auto) Urine RBC (Auto) U Hyaline Cast (Auto) Urine Bacteria (Auto) Squamous Epi Cells Auto Urine Mucus (Auto) Urine Ascorbic Acid Stool Occult Blood Stool for White Cells Stl C. Difficile GDH Ag Stl C.difficile Tox A&B Digoxin COVID-19 Source Slides for Path Review Blood Type Blood Type Confirm Antibody Screen Crossmatch 01/04/20 01/04/20 01/04/20 03:43 15:33 19:24 WBC 19.1 H 19.9 H RBC 4.09 L 3.76 L Hgb 13.1 L 12.2 L Hct 37.8 L 34.5 L MCV 92 92 MCH 32.0 32.4 MCHC 34.7 35.3 RDW 14.8 H 14.6 H Plt Count 75 L 73 L Lymph % (Auto) [place] % (Auto) Eos % (Auto) Baso % (Auto) Reticulocyte # Absolute Neuts (auto) Absolute Lymphs (auto) Absolute Monos (auto) Absolute Eos (auto) Absolute Basos (auto) Total Counted Seg Neutrophils % Seg Neuts % (Manual) Band Neutrophils % Lymphocytes % (Manual) Monocytes % (Manual) Eosinophils % (Manual) Basophils % (Manual) Abs Neuts (Manual) Abs Lymphs (Manual) Abs Monocytes (Manual) Absolute Eos (Manual) Abs Basophils (Manual) Platelet Estimate Platelet Comment Anisocytosis Retic Count (auto) PT INR APTT Sodium Potassium Chloride Carbon Dioxide Anion Gap BUN Creatinine Est GFR ( Amer) Est GFR (MDRD) Non-Af Glucose POC Glucose Calcium Phosphorus 3.3 Magnesium 2.8 H Iron TIBC % Saturation Ferritin Total Bilirubin Direct Bilirubin Neonat Total Bilirubin Neonat Direct Bilirubin Neonat Indirect Bili AST ALT Alkaline Phosphatase Creatine Kinase Troponin I NT-Pro-B Natriuret Pep Total Protein Albumin Vitamin B12 Folate TSH Free T4 Urine Color Urine Appearance Urine pH Ur Specific [place] Urine Protein Urine Glucose (UA) Urine Ketones Urine Blood Urine Nitrite Urine Nitrite (Reflex) Urine Bilirubin Urine Urobilinogen Ur Leukocyte Esterase Leukocyte Esterase Rfl Urine WBC (Auto) Urine RBC (Auto) U Hyaline Cast (Auto) Urine Bacteria (Auto) Squamous Epi Cells Auto Urine Mucus (Auto) Urine Ascorbic Acid Stool Occult Blood Stool for White Cells Stl C. Difficile GDH Ag Stl C.difficile Tox A&B Digoxin COVID-19 Source Slides for Path Review Blood Type Blood Type Confirm Antibody Screen Crossmatch 01/05/20 01/05/20 01/05/20 04:12 04:12 16:03 WBC 16.3 H 15.2 H RBC 2.97 L 2.75 L Hgb 9.6 L D 8.9 L Hct 27.3 L 25.4 L MCV 92 92 MCH 32.4 32.5 MCHC 35.2 35.1 RDW 14.5 H 15.0 H Plt Count 128 L 118 L Lymph % (Auto) Not Reportable [place] % (Auto) Not Reportable Eos % (Auto) Not Reportable Baso % (Auto) Not Reportable Reticulocyte # Absolute Neuts (auto) Not Reportable Absolute Lymphs (auto) Not Reportable Absolute Monos (auto) Not Reportable Absolute Eos (auto) Not Reportable Absolute Basos (auto) Not Reportable Total Counted 100 Seg Neutrophils % Not Reportable Seg Neuts % (Manual) 94 H Band Neutrophils % 2 L Lymphocytes % (Manual) 1 L Monocytes % (Manual) 3 Eosinophils % (Manual) 0 Basophils % (Manual) 0 Abs Neuts (Manual) 14.6 H Abs Lymphs (Manual) 0.2 L Abs Monocytes (Manual) 0.5 Absolute Eos (Manual) 0.0 Abs Basophils (Manual) 0.0 Platelet Estimate Platelet Comment ADEQUATE Anisocytosis SLIGHT Retic Count (auto) PT INR APTT Sodium 134.9 L Potassium 4.5 Chloride 97 L Carbon Dioxide 27 Anion Gap 11 BUN 128 H Creatinine 2.14 H Est GFR ( Amer) 37 L Est GFR (MDRD) Non-Af 31 L Glucose 122 H POC Glucose Calcium 8.6 Phosphorus Magnesium Iron TIBC % Saturation Ferritin Total Bilirubin 1.3 Direct Bilirubin 0.6 H Neonat Total Bilirubin Not Reportable Neonat Direct Bilirubin Not Reportable Neonat Indirect Bili Not Reportable AST 60 H ALT 57 H Alkaline Phosphatase 160 H Creatine Kinase Troponin I NT-Pro-B Natriuret Pep Total Protein 4.5 L Albumin 2.4 L Vitamin B12 Folate TSH Free T4 Urine Color Urine Appearance Urine pH Ur Specific [place] Urine Protein Urine Glucose (UA) Urine Ketones Urine Blood Urine Nitrite Urine Nitrite (Reflex) Urine Bilirubin Urine Urobilinogen Ur Leukocyte Esterase Leukocyte Esterase Rfl Urine WBC (Auto) Urine RBC (Auto) U Hyaline Cast (Auto) Urine Bacteria (Auto) Squamous Epi Cells Auto Urine Mucus (Auto) Urine Ascorbic Acid Stool Occult Blood Stool for White Cells Stl C. Difficile GDH Ag Stl C.difficile Tox A&B Digoxin 2.97 H* COVID-19 Source Slides for Path Review Blood Type Blood Type Confirm Antibody Screen Crossmatch 01/06/20 01/06/20 01/06/20 04:00 04:00 16:20 WBC 10.5 7.9 RBC 3.11 L 2.75 L Hgb 10.3 L 9.0 L Hct 28.8 L 25.5 L MCV 93 93 MCH 33.2 32.9 MCHC 35.9 35.5 RDW 14.5 H 14.7 H Plt Count 76 L 65 L Lymph % (Auto) [place] % (Auto) Eos % (Auto) Baso % (Auto) Reticulocyte # Absolute Neuts (auto) Absolute Lymphs (auto) Absolute Monos (auto) Absolute Eos (auto) Absolute Basos (auto) Total Counted Seg Neutrophils % Seg Neuts % (Manual) Band Neutrophils % Lymphocytes % (Manual) Monocytes % (Manual) Eosinophils % (Manual) Basophils % (Manual) Abs Neuts (Manual) Abs Lymphs (Manual) Abs Monocytes (Manual) Absolute Eos (Manual) Abs Basophils (Manual) Platelet Estimate Platelet Comment Anisocytosis Retic Count (auto) PT INR APTT Sodium 138.5 Potassium 3.7 Chloride 101 Carbon Dioxide 30 Anion Gap 8 BUN 114 H Creatinine 2.19 H Est GFR ( Amer) 36 L Est GFR (MDRD) Non-Af 30 L Glucose 97 POC Glucose Calcium 8.2 L Phosphorus Magnesium Iron TIBC % Saturation Ferritin Total Bilirubin 1.1 Direct Bilirubin 0.6 H Neonat Total Bilirubin Not Reportable Neonat Direct Bilirubin Not Reportable Neonat Indirect Bili Not Reportable AST 89 H ALT 63 H Alkaline Phosphatase 173 H Creatine Kinase Troponin I NT-Pro-B Natriuret Pep Total Protein 4.5 L Albumin 2.3 L Vitamin B12 Folate TSH Free T4 Urine Color Urine Appearance Urine pH Ur Specific [place] Urine Protein Urine Glucose (UA) Urine Ketones Urine Blood Urine Nitrite Urine Nitrite (Reflex) Urine Bilirubin Urine Urobilinogen Ur Leukocyte Esterase Leukocyte Esterase Rfl Urine WBC (Auto) Urine RBC (Auto) U Hyaline Cast (Auto) Urine Bacteria (Auto) Squamous Epi Cells Auto Urine Mucus (Auto) Urine Ascorbic Acid Stool Occult Blood Stool for White Cells Stl C. Difficile GDH Ag Stl C.difficile Tox A&B Digoxin COVID-19 Source Slides for Path Review Blood Type Blood Type Confirm Antibody Screen Crossmatch 01/07/20 01/07/20 01/07/20 03:53 03:53 08:57 WBC 6.6 RBC 2.69 L Hgb 8.8 L Hct 25.0 L MCV 93 MCH 32.8 MCHC 35.2 RDW 14.8 H Plt Count 64 L Lymph % (Auto) [place] % (Auto) Eos % (Auto) Baso % (Auto) Reticulocyte # Absolute Neuts (auto) Absolute Lymphs (auto) Absolute Monos (auto) Absolute Eos (auto) Absolute Basos (auto) Total Counted Seg Neutrophils % Seg Neuts % (Manual) Band Neutrophils % Lymphocytes % (Manual) Monocytes % (Manual) Eosinophils % (Manual) Basophils % (Manual) Abs Neuts (Manual) Abs Lymphs (Manual) Abs Monocytes (Manual) Absolute Eos (Manual) Abs Basophils (Manual) Platelet Estimate Platelet Comment Anisocytosis Retic Count (auto) PT INR APTT Sodium 135.1 L Potassium 3.7 Chloride 98 Carbon Dioxide 32 H Anion Gap 5 BUN 109 H Creatinine 2.02 H Est GFR ( Amer) 40 L Est GFR (MDRD) Non-Af 33 L Glucose 90 POC Glucose Calcium 8.0 L Phosphorus Magnesium Iron TIBC % Saturation Ferritin Total Bilirubin 1.1 Direct Bilirubin 0.6 H Neonat Total Bilirubin Not Reportable Neonat Direct Bilirubin Not Reportable Neonat Indirect Bili Not Reportable AST 157 H ALT 98 H Alkaline Phosphatase 190 H Creatine Kinase Troponin I NT-Pro-B Natriuret Pep Total Protein 4.2 L Albumin 2.2 L Vitamin B12 Folate TSH Free T4 Urine Color Urine Appearance Urine pH Ur Specific [place] Urine Protein Urine Glucose (UA) Urine Ketones Urine Blood Urine Nitrite Urine Nitrite (Reflex) Urine Bilirubin Urine Urobilinogen Ur Leukocyte Esterase Leukocyte Esterase Rfl Urine WBC (Auto) Urine RBC (Auto) U Hyaline Cast (Auto) Urine Bacteria (Auto) Squamous Epi Cells Auto Urine Mucus (Auto) Urine Ascorbic Acid Stool Occult Blood Stool for White Cells Stl C. Difficile GDH Ag Stl C.difficile Tox A&B Digoxin 1.43 COVID-19 Source Slides for Path Review Blood Type B POSITIVE Blood Type Confirm Antibody Screen NEGATIVE Crossmatch See Detail 01/07/20 01/07/20 01/08/20 17:15 17:40 06:10 WBC 6.4 RBC 3.09 L Hgb 10.1 L Hct 28.9 L MCV 94 MCH 32.8 MCHC 35.0 RDW 14.7 H Plt Count 60 L Lymph % (Auto) [place] % (Auto) Eos % (Auto) Baso % (Auto) Reticulocyte # Absolute Neuts (auto) Absolute Lymphs (auto) Absolute Monos (auto) Absolute Eos (auto) Absolute Basos (auto) Total Counted Seg Neutrophils % Seg Neuts % (Manual) Band Neutrophils % Lymphocytes % (Manual) Monocytes % (Manual) Eosinophils % (Manual) Basophils % (Manual) Abs Neuts (Manual) Abs Lymphs (Manual) Abs Monocytes (Manual) Absolute Eos (Manual) Abs Basophils (Manual) Platelet Estimate Platelet Comment Anisocytosis Retic Count (auto) PT INR APTT Sodium Potassium Chloride Carbon Dioxide Anion Gap BUN Creatinine Est GFR ( Amer) Est GFR (MDRD) Non-Af Glucose POC Glucose Calcium Phosphorus Magnesium Iron 57.0 TIBC 264 % Saturation 22 Ferritin 304.00 Total Bilirubin Direct Bilirubin Neonat Total Bilirubin Neonat Direct Bilirubin Neonat Indirect Bili AST ALT Alkaline Phosphatase Creatine Kinase Troponin I NT-Pro-B Natriuret Pep Total Protein Albumin Vitamin B12 954.0 H Folate 7.39 TSH Free T4 Urine Color YELLOW Urine Appearance CLEAR Urine pH 5.0 Ur Specific [place] 1.010 Urine Protein NEGATIVE Urine Glucose (UA) NEGATIVE Urine Ketones NEGATIVE Urine Blood NEGATIVE Urine Nitrite NEGATIVE Urine Nitrite (Reflex) Urine Bilirubin NEGATIVE Urine Urobilinogen NEGATIVE Ur Leukocyte Esterase NEGATIVE Leukocyte Esterase Rfl Urine WBC (Auto) Urine RBC (Auto) U Hyaline Cast (Auto) 1 Urine Bacteria (Auto) Squamous Epi Cells Auto <1 Urine Mucus (Auto) RARE Urine Ascorbic Acid NEGATIVE Stool Occult Blood Stool for White Cells Stl C. Difficile GDH Ag Stl C.difficile Tox A&B Digoxin COVID-19 Source Slides for Path Review Blood Type Blood Type Confirm Antibody Screen Crossmatch 01/08/20 01/08/20 01/08/20 08:00 08:00 08:00 WBC 6.1 RBC 3.11 L Hgb 10.2 L Hct 28.9 L MCV 93 MCH 32.8 MCHC 35.3 RDW 14.6 H Plt Count 67 L Lymph % (Auto) [place] % (Auto) Eos % (Auto) Baso % (Auto) Reticulocyte # 0.044 Absolute Neuts (auto) Absolute Lymphs (auto) Absolute Monos (auto) Absolute Eos (auto) Absolute Basos (auto) Total Counted Seg Neutrophils % Seg Neuts % (Manual) Band Neutrophils % Lymphocytes % (Manual) Monocytes % (Manual) Eosinophils % (Manual) Basophils % (Manual) Abs Neuts (Manual) Abs Lymphs (Manual) Abs Monocytes (Manual) Absolute Eos (Manual) Abs Basophils (Manual) Platelet Estimate Platelet Comment Anisocytosis Retic Count (auto) 1.43 PT INR APTT Sodium 136.1 L Potassium 3.2 L Chloride 99 Carbon Dioxide 30 Anion Gap 7 BUN 89 H Creatinine 1.91 H Est GFR ( Amer) 43 L Est GFR (MDRD) Non-Af 35 L Glucose 127 H POC Glucose Calcium 7.8 L Phosphorus Magnesium Iron TIBC % Saturation Ferritin Total Bilirubin 1.0 Direct Bilirubin 0.6 H Neonat Total Bilirubin Not Reportable Neonat Direct Bilirubin Not Reportable Neonat Indirect Bili Not Reportable AST 155 H ALT 104 H Alkaline Phosphatase 213 H Creatine Kinase Troponin I NT-Pro-B Natriuret Pep Total Protein 4.5 L Albumin 2.2 L Vitamin B12 Folate TSH Free T4 Urine Color Urine Appearance Urine pH Ur Specific [place] Urine Protein Urine Glucose (UA) Urine Ketones Urine Blood Urine Nitrite Urine Nitrite (Reflex) Urine Bilirubin Urine Urobilinogen Ur Leukocyte Esterase Leukocyte Esterase Rfl Urine WBC (Auto) Urine RBC (Auto) U Hyaline Cast (Auto) Urine Bacteria (Auto) Squamous Epi Cells Auto Urine Mucus (Auto) Urine Ascorbic Acid Stool Occult Blood Stool for White Cells Stl C. Difficile GDH Ag Stl C.difficile Tox A&B Digoxin COVID-19 Source Slides for Path Review Blood Type Blood Type Confirm Antibody Screen Crossmatch 01/08/20 01/09/20 01/09/20 21:58 06:33 08:49 WBC 4.9 RBC 2.84 L Hgb 9.3 L Hct 26.6 L MCV 94 MCH 32.9 MCHC 35.1 RDW 14.8 H Plt Count 70 L Lymph % (Auto) [place] % (Auto) Eos % (Auto) Baso % (Auto) Reticulocyte # Absolute Neuts (auto) Absolute Lymphs (auto) Absolute Monos (auto) Absolute Eos (auto) Absolute Basos (auto) Total Counted Seg Neutrophils % Seg Neuts % (Manual) Band Neutrophils % Lymphocytes % (Manual) Monocytes % (Manual) Eosinophils % (Manual) Basophils % (Manual) Abs Neuts (Manual) Abs Lymphs (Manual) Abs Monocytes (Manual) Absolute Eos (Manual) Abs Basophils (Manual) Platelet Estimate Platelet Comment Anisocytosis Retic Count (auto) PT INR APTT Sodium 136.0 L Potassium 3.5 L Chloride 99 Carbon Dioxide 31 H Anion Gap 6 BUN 72 H Creatinine 1.60 H Est GFR ( Amer) 52 L Est GFR (MDRD) Non-Af 43 L Glucose 105 POC Glucose 114 H Calcium 7.7 L Phosphorus Magnesium Iron TIBC % Saturation Ferritin Total Bilirubin 1.0 Direct Bilirubin 0.5 H Neonat Total Bilirubin Not Reportable Neonat Direct Bilirubin Not Reportable Neonat Indirect Bili Not Reportable AST 147 H ALT 104 H Alkaline Phosphatase 213 H Creatine Kinase Troponin I NT-Pro-B Natriuret Pep Total Protein 4.5 L Albumin 2.2 L Vitamin B12 Folate TSH Free T4 Urine Color Urine Appearance Urine pH Ur Specific [place] Urine Protein Urine Glucose (UA) Urine Ketones Urine Blood Urine Nitrite Urine Nitrite (Reflex) Urine Bilirubin Urine Urobilinogen Ur Leukocyte Esterase Leukocyte Esterase Rfl Urine WBC (Auto) Urine RBC (Auto) U Hyaline Cast (Auto) Urine Bacteria (Auto) Squamous Epi Cells Auto Urine Mucus (Auto) Urine Ascorbic Acid Stool Occult Blood Stool for White Cells Stl C. Difficile GDH Ag Stl C.difficile Tox A&B Digoxin COVID-19 Source Slides for Path Review Blood Type Blood Type Confirm Antibody Screen Crossmatch 01/09/20 01/10/20 01/10/20 18:42 11:12 11:12 WBC 3.9 L RBC 2.60 L Hgb 8.4 L Hct 24.7 L MCV 95 MCH 32.4 MCHC 34.2 RDW 14.7 H Plt Count 85 L Lymph % (Auto) [place] % (Auto) Eos % (Auto) Baso % (Auto) Reticulocyte # Absolute Neuts (auto) Absolute Lymphs (auto) Absolute Monos (auto) Absolute Eos (auto) Absolute Basos (auto) Total Counted Seg Neutrophils % Seg Neuts % (Manual) Band Neutrophils % Lymphocytes % (Manual) Monocytes % (Manual) Eosinophils % (Manual) Basophils % (Manual) Abs Neuts (Manual) Abs Lymphs (Manual) Abs Monocytes (Manual) Absolute Eos (Manual) Abs Basophils (Manual) Platelet Estimate Platelet Comment Anisocytosis Retic Count (auto) PT INR APTT Sodium 134.4 L Potassium 4.0 Chloride 99 Carbon Dioxide 28 Anion Gap 7 BUN 69 H Creatinine 1.26 H Est GFR ( Amer) > 60 Est GFR (MDRD) Non-Af 57 L Glucose 107 POC Glucose Calcium 7.7 L Phosphorus Magnesium Iron TIBC % Saturation Ferritin Total Bilirubin 0.9 Direct Bilirubin 0.4 Neonat Total Bilirubin Not Reportable Neonat Direct Bilirubin Not Reportable Neonat Indirect Bili Not Reportable AST 114 H ALT 90 H Alkaline Phosphatase 192 H Creatine Kinase Troponin I NT-Pro-B Natriuret Pep Total Protein 4.4 L Albumin 2.1 L Vitamin B12 Folate TSH Free T4 Urine Color YELLOW Urine Appearance CLEAR Urine pH 7.0 Ur Specific [place] 1.010 Urine Protein NEGATIVE Urine Glucose (UA) NEGATIVE Urine Ketones NEGATIVE Urine Blood NEGATIVE Urine Nitrite NEGATIVE Urine Nitrite (Reflex) Urine Bilirubin NEGATIVE Urine Urobilinogen NEGATIVE Ur Leukocyte Esterase MODERATE H Leukocyte Esterase Rfl Urine WBC (Auto) 12 Urine RBC (Auto) 2 U Hyaline Cast (Auto) 1 Urine Bacteria (Auto) 1+ Squamous Epi Cells Auto <1 Urine Mucus (Auto) FEW Urine Ascorbic Acid NEGATIVE Stool Occult Blood Stool for White Cells Stl C. Difficile GDH Ag Stl C.difficile Tox A&B Digoxin COVID-19 Source Slides for Path Review Blood Type Blood Type Confirm Antibody Screen Crossmatch 01/10/20 01/10/20 01/10/20 13:25 18:13 18:13 WBC 4.2 RBC 2.64 L Hgb 8.7 L Hct 24.6 L MCV 93 MCH 33.0 MCHC 35.5 RDW 14.9 H Plt Count 85 L Lymph % (Auto) [place] % (Auto) Eos % (Auto) Baso % (Auto) Reticulocyte # Absolute Neuts (auto) Absolute Lymphs (auto) Absolute Monos (auto) Absolute Eos (auto) Absolute Basos (auto) Total Counted Seg Neutrophils % Seg Neuts % (Manual) Band Neutrophils % Lymphocytes % (Manual) Monocytes % (Manual) Eosinophils % (Manual) Basophils % (Manual) Abs Neuts (Manual) Abs Lymphs (Manual) Abs Monocytes (Manual) Absolute Eos (Manual) Abs Basophils (Manual) Platelet Estimate Platelet Comment Anisocytosis Retic Count (auto) PT INR APTT Sodium Potassium Chloride Carbon Dioxide Anion Gap BUN Creatinine Est GFR ( Amer) Est GFR (MDRD) Non-Af Glucose POC Glucose Calcium Phosphorus Magnesium Iron TIBC % Saturation Ferritin Total Bilirubin Direct Bilirubin Neonat Total Bilirubin Neonat Direct Bilirubin Neonat Indirect Bili AST ALT Alkaline Phosphatase Creatine Kinase Troponin I NT-Pro-B Natriuret Pep Total Protein Albumin Vitamin B12 Folate TSH Free T4 Urine Color Urine Appearance Urine pH Ur Specific [place] Urine Protein Urine Glucose (UA) Urine Ketones Urine Blood Urine Nitrite Urine Nitrite (Reflex) Urine Bilirubin Urine Urobilinogen Ur Leukocyte Esterase Leukocyte Esterase Rfl Urine WBC (Auto) Urine RBC (Auto) U Hyaline Cast (Auto) Urine Bacteria (Auto) Squamous Epi Cells Auto Urine Mucus (Auto) Urine Ascorbic Acid Stool Occult Blood Stool for White Cells NO WBCs SEEN Stl C. Difficile GDH Ag NEGATIVE Stl C.difficile Tox A&B NEGATIVE Digoxin COVID-19 Source Slides for Path Review Blood Type Blood Type Confirm Antibody Screen Crossmatch 01/10/20 01/11/20 01/11/20 20:50 06:30 10:40 WBC 4.8 RBC 2.40 L Hgb 7.9 L Hct 22.8 L MCV 95 MCH 33.1 MCHC 34.8 RDW 14.9 H Plt Count 94 L Lymph % (Auto) [place] % (Auto) Eos % (Auto) Baso % (Auto) Reticulocyte # Absolute Neuts (auto) Absolute Lymphs (auto) Absolute Monos (auto) Absolute Eos (auto) Absolute Basos (auto) Total Counted Seg Neutrophils % Seg Neuts % (Manual) Band Neutrophils % Lymphocytes % (Manual) Monocytes % (Manual) Eosinophils % (Manual) Basophils % (Manual) Abs Neuts (Manual) Abs Lymphs (Manual) Abs Monocytes (Manual) Absolute Eos (Manual) Abs Basophils (Manual) Platelet Estimate Platelet Comment Anisocytosis Retic Count (auto) PT INR APTT Sodium Potassium Chloride Carbon Dioxide Anion Gap BUN Creatinine Est GFR ( Amer) Est GFR (MDRD) Non-Af Glucose POC Glucose Calcium Phosphorus Magnesium Iron TIBC % Saturation Ferritin Total Bilirubin Direct Bilirubin Neonat Total Bilirubin Neonat Direct Bilirubin Neonat Indirect Bili AST ALT Alkaline Phosphatase Creatine Kinase Troponin I NT-Pro-B Natriuret Pep Total Protein Albumin Vitamin B12 Folate TSH Free T4 Urine Color Urine Appearance Urine pH Ur Specific [place] Urine Protein Urine Glucose (UA) Urine Ketones Urine Blood Urine Nitrite Urine Nitrite (Reflex) Urine Bilirubin Urine Urobilinogen Ur Leukocyte Esterase Leukocyte Esterase Rfl Urine WBC (Auto) Urine RBC (Auto) U Hyaline Cast (Auto) Urine Bacteria (Auto) Squamous Epi Cells Auto Urine Mucus (Auto) Urine Ascorbic Acid Stool Occult Blood POSITIVE Stool for White Cells Stl C. Difficile GDH Ag NEGATIVE Stl C.difficile Tox A&B NEGATIVE Digoxin COVID-19 Source Slides for Path Review Blood Type Blood Type Confirm Antibody Screen Crossmatch 01/11/20 01/11/20 01/11/20 11:29 11:30 23:10 WBC RBC Hgb Hct MCV MCH MCHC RDW Plt Count Lymph % (Auto) [place] % (Auto) Eos % (Auto) Baso % (Auto) Reticulocyte # Absolute Neuts (auto) Absolute Lymphs (auto) Absolute Monos (auto) Absolute Eos (auto) Absolute Basos (auto) Total Counted Seg Neutrophils % Seg Neuts % (Manual) Band Neutrophils % Lymphocytes % (Manual) Monocytes % (Manual) Eosinophils % (Manual) Basophils % (Manual) Abs Neuts (Manual) Abs Lymphs (Manual) Abs Monocytes (Manual) Absolute Eos (Manual) Abs Basophils (Manual) Platelet Estimate Platelet Comment Anisocytosis Retic Count (auto) PT INR APTT Sodium 132.0 L Potassium 4.1 Chloride 98 Carbon Dioxide 29 Anion Gap 5 BUN 70 H Creatinine 1.31 H Est GFR ( Amer) > 60 Est GFR (MDRD) Non-Af 54 L Glucose 73 L POC Glucose Calcium 7.7 L Phosphorus Magnesium Iron TIBC % Saturation Ferritin Total Bilirubin 1.1 Direct Bilirubin 0.5 H Neonat Total Bilirubin Not Reportable Neonat Direct Bilirubin Not Reportable Neonat Indirect Bili Not Reportable AST 77 H ALT 74 H Alkaline Phosphatase 175 H Creatine Kinase Troponin I NT-Pro-B Natriuret Pep Total Protein 4.0 L Albumin 2.0 L Vitamin B12 Folate TSH Free T4 Urine Color Urine Appearance Urine pH Ur Specific [place] Urine Protein Urine Glucose (UA) Urine Ketones Urine Blood Urine Nitrite Urine Nitrite (Reflex) Urine Bilirubin Urine Urobilinogen Ur Leukocyte Esterase Leukocyte Esterase Rfl Urine WBC (Auto) Urine RBC (Auto) U Hyaline Cast (Auto) Urine Bacteria (Auto) Squamous Epi Cells Auto Urine Mucus (Auto) Urine Ascorbic Acid Stool Occult Blood POSITIVE Stool for White Cells Stl C. Difficile GDH Ag Stl C.difficile Tox A&B Digoxin COVID-19 Source Slides for Path Review Blood Type B POSITIVE Blood Type Confirm Antibody Screen NEGATIVE Crossmatch See Detail 01/12/20 01/12/20 01/12/20 01:20 09:15 11:30 WBC 6.6 6.0 RBC 3.05 L 2.46 L Hgb 10.0 L D 8.0 L Hct 28.0 L 22.8 L MCV 92 93 MCH 32.7 32.5 MCHC 35.7 35.1 RDW 14.8 H 14.6 H Plt Count 103 L 94 L Lymph % (Auto) 5.7 L Kershaw % (Auto) 9.4 Eos % (Auto) 0.9 Baso % (Auto) 0.5 Reticulocyte # Absolute Neuts (auto) 5.5 Absolute Lymphs (auto) 0.4 L Absolute Monos (auto) 0.6 Absolute Eos (auto) 0.1 Absolute Basos (auto) 0.0 Total Counted Seg Neutrophils % 83.5 H Seg Neuts % (Manual) Band Neutrophils % Lymphocytes % (Manual) Monocytes % (Manual) Eosinophils % (Manual) Basophils % (Manual) Abs Neuts (Manual) Abs Lymphs (Manual) Abs Monocytes (Manual) Absolute Eos (Manual) Abs Basophils (Manual) Platelet Estimate Platelet Comment Anisocytosis Retic Count (auto) PT INR APTT Sodium 132.5 L Potassium 4.4 Chloride 99 Carbon Dioxide 28 Anion Gap 6 BUN 73 H Creatinine 1.20 Est GFR ( Amer) > 60 Est GFR (MDRD) Non-Af > 60 Glucose 84 POC Glucose Calcium 7.5 L Phosphorus Magnesium Iron TIBC % Saturation Ferritin Total Bilirubin Direct Bilirubin Neonat Total Bilirubin Neonat Direct Bilirubin Neonat Indirect Bili AST ALT Alkaline Phosphatase Creatine Kinase Troponin I NT-Pro-B Natriuret Pep Total Protein Albumin Vitamin B12 Folate TSH Free T4 Urine Color Urine Appearance Urine pH Ur Specific Rickman Urine Protein Urine Glucose (UA) Urine Ketones Urine Blood Urine Nitrite Urine Nitrite (Reflex) Urine Bilirubin Urine Urobilinogen Ur Leukocyte Esterase Leukocyte Esterase Rfl Urine WBC (Auto) Urine RBC (Auto) U Hyaline Cast (Auto) Urine Bacteria (Auto) Squamous Epi Cells Auto Urine Mucus (Auto) Urine Ascorbic Acid Stool Occult Blood Stool for White Cells Stl C. Difficile GDH Ag Stl C.difficile Tox A&B Digoxin COVID-19 Source Slides for Path Review Blood Type Blood Type Confirm Antibody Screen Crossmatch Chest X-Ray 12/24/19 19:50 IMPRESSION: New right basilar airspace consolidative change, suspicious for pneumonia. Head CT 12/24/19 20:48 IMPRESSION: 1. No acute intracranial findings. 2. Senescent changes with chronic microvascular ischemia and old lacunar infarcts. Chest X-Ray 12/28/19 00:00 IMPRESSION: 1. New right pleural effusion since 12/24/2019, with worsening right pulmonary infiltrate, likely pneumonia. Chest X-Ray 12/29/19 00:00 IMPRESSION: Right internal jugular catheter as described. Improving right lower lobe pneumonia. GI Bleed Scan Nuclear Medicine 01/04/20 00:00 IMPRESSION: EVIDENCE OF ACTIVE GASTROINTESTINAL BLEEDING. POINT OF ORIGIN IS IN THE RIGHT UPPER QUADRANT. Chest X-Ray 01/05/20 06:00 IMPRESSION: Improved but persistent patchy right basilar airspace disease and trace effusion. Abdomen Ultrasound 01/07/20 00:00 IMPRESSION: NO ABDOMINAL AORTIC ANEURYSM. Abdomen/Pelvis CT 01/12/20 16:00 IMPRESSION: Wall thickening in the rectosigmoid consistent with colitis. There is an aortobifemoral graft which appears patent. However the left superficial femoral artery appears occluded in the visualized segments of the proximal thigh. Recommend correlation with CTA or arterial Doppler. This finding was discussed with Dr Alicia Brizuela @ 2003 Subcutaneous and intra-abdominal stranding which may reflect anasarca Renal cysts with marked atrophy of the left kidney Right basilar atelectasis and pleural effusion Additional chronic changes as above IMPRESSION/RECOMMENDATION: 1. Diarrhea? Cause the patient's stool WBC is negative. C. difficile result is negative. Occult blood is positive. Repeat C. difficile test was negative. The patient's stool occult blood is again positive. Will get CT scan of the abdomen and pelvis. 2. Acute anemia: The patient's hemoglobin is still dropping and today 7.9. Will give 2 units of packed RBCs. Will reconsult Dr. San tomorrow 3. Acute on chronic systolic heart failure.: This seems to be compensated. Hold the patient's Coreg and midodrine for possibly these causing the patient's diarrhea. Continue midodrine. 4. Acute nonoliguric renal failure. Patient with good urine output. Partly the BUN/creatinine secondary to patient's absorption of blood from his GI tract about the ligament of Treitz. Patient BUN/creatinine is improving. Although his BUN is 70 his creatinine is 1.20 and his GFR is greater than 60. The BUN being high is most likely secondary to blood in the gut. 5. Hypokalemia: The patient's potassium is normal after replacement. 6. Severe mitral regurgitation, and severe tricuspid regurgitation and severe pulmonary hypertension. 7. DIlated cardiomyopathy and ischemic cardiomyopathy with severely reduced LV ejection fraction. Continue beta-abhishek and Entresto. Continue Lasix. 8.. COPD: At present no acute exacerbation. Will change albuterol nebulizer treatment to Xopenex treatment 9. Coronary artery disease. History of old myocardial infarction and history of coronary bypass graft surgery. No anginal symptoms. Continue anti-CAD medication, as being down now. Due to her drop in blood pressure effect of nitrates this has been held. 10. History of hypertension: Blood pressure well controlled 11. History of AICD: No firing of his AICD recently. 12. Peripheral vascular disease: History of past history of left femoropopliteal bypass surgery. Abdominal ultrasound shows no evidence of abdominal aortic aneurysm 13 History of pancytopenia 14. Tobacco abuse disorder. We will continue the patient on NicoDerm patch 15. History of facial skin cancer. The patient will be requiring radiation treatment as per Dr. Domingo, radiation oncologist in [place]. 16. Elevated digoxin level without any evidence of digitoxicity. We will discontinue the patient's digoxin. The patient is low back to 1.7. But in view of the patient's renal insufficiency will not reinstitute digoxin. 17. Upper GI bleed. There is, at present, no evidence of acute ongoing bleeding. Will observe check the patient's hemoglobin. Bleed. 18. Hypotension: Resolved on inotropes. We will try to wean the patient off dobutamine, dopamine and vasopressin. 19. Back pain. Patient has history of back surgery and chronic back pain. This is improved with morphine. There is no abdominal aortic aneurysm we In view of the patient's diarrhea will stop the patient's Coreg. Will hold the patient's Entresto. We will continue the patient's pantoprazole. We will get an abdominal/pelvis CT. Medications reviewed. Medical regimen management plan discussed with the patient's daughter. Medical decision making is of high complexity. 40 minutes spent with patient more than 50% of time spent in direct patient care.
[2020-01-12] MEDS ORDERED: DOPAMINE HCL 800 MG/D5W 250 ML IV PRN (13:07)
[2020-01-12 13:48] LABS: HEMATOCRIT 22.8 % (37.9-51.0); MEAN CORPUSCULAR HEMOGLOBIN 32.5 pg (27.0-33.4); MEAN CORPUSCULAR HGB CONC 35.1 g/dL (32.0-36.0); MEAN CORPUSCULAR VOLUME 93 fl (80-97); PLATELET COUNT 94 10^3/uL (150-450); RED BLOOD COUNT 2.46 10^6/uL (4.35-5.55); RED CELL DISTRIBUTION WIDTH 14.6 % (11.5-14.0)
--- NOTE | 2020-01-12 21:10 | RADIOLOGY REPORT (SQ) ---
EXAM DESCRIPTION: CT ABDOMEN PELVIS WITH IV CONTRAST COMPLETED DATE/TME: 01/12/2020 16:00 CLINICAL HISTORY: 69 years Male GI Bleed/diarrhea COMPARISON: None. TECHNIQUE: Contiguous axial images obtained through the abdomen and pelvis following IV contrast. Reformatted images obtained. This exam was performed according to our department optimization program which includes automated exposure control, adjustment of the mA and/or kv according to patient size and/or use of iterative reconstruction technique. FINDINGS: Atelectasis and fluid in the right lung base. Trace pericardial effusion. The liver, spleen and pancreas appear unremarkable. No adrenal masses. Bilateral renal cysts. Markedly atrophic left kidney. Serrano catheter in the urinary bladder. Gastric distention. Moderate fecal material in the colon may reflect constipation. The gallbladder is visualized. Extensive calcification in aorta and its branches. Aortic bypass graft extending to the common femoral arteries. Stranding in the mesentery and in the subcutaneous soft tissues which may reflect anasarca. Findings are concerning for occlusion of the superficial femoral artery on the left. No bowel obstruction. The appendix is not seen.. There is mild wall thickening in the sigmoid and rectum concerning for colitis which is nonspecific. No significant ascites noted. IMPRESSION: Wall thickening in the rectosigmoid consistent with colitis. There is an aortobifemoral graft which appears patent. However the left superficial femoral artery appears occluded in the visualized segments of the proximal thigh. Recommend correlation with CTA or arterial Doppler. This finding was discussed with Dr Alicia Brizuela @ 2003 Subcutaneous and intra-abdominal stranding which may reflect anasarca Renal cysts with marked atrophy of the left kidney Right basilar atelectasis and pleural effusion Additional chronic changes as above
[2020-01-13] MEDS: MORPHINE SULFATE 10 MG/ML INJ IV PRN ×2 (02:12→06:03)
[2020-01-13] MEDS: PANTOPRAZOLE SODIUM 40 MG TABLET.DR PO SCH ×2 (05:40→17:46)
[2020-01-13] MEDS: LOPERAMIDE HCL 2 MG CAPSULE PO SCH ×4 (05:40→23:42)
[2020-01-13 06:31] LABS: HEMATOCRIT 24.6 % (37.9-51.0); HEMOGLOBIN 8.5 g/dL (13.5-17.0); MEAN CORPUSCULAR HEMOGLOBIN 32.4 pg (27.0-33.4); MEAN CORPUSCULAR HGB CONC 34.6 g/dL (32.0-36.0); MEAN CORPUSCULAR VOLUME 94 fl (80-97); PLATELET COUNT 138 10^3/uL (150-450); RED BLOOD COUNT 2.62 10^6/uL (4.35-5.55); RED CELL DISTRIBUTION WIDTH 14.9 % (11.5-14.0); WHITE BLOOD COUNT 6.5 10^3/uL (4.0-10.5)
[2020-01-13 06:57] LABS: ALBUMIN 2.3 g/dL (3.5-5.0); ALKALINE PHOSPHATASE 181 U/L (38-126); ANION GAP 8 (5-19); ASPARTATE AMINO TRANSFERASE 48 U/L (17-59); BILIRUBIN,DIRECT 0.6 mg/dL (0.0-0.4); BILIRUBIN,TOTAL 0.9 mg/dL (0.2-1.3); BLOOD UREA NITROGEN 91 mg/dL (7-20); CALCIUM 8.1 mg/dL (8.4-10.2); CARBON DIOXIDE 25 mmol/L (22-30); CHLORIDE 99 mmol/L (98-107); GLUCOSE 89 mg/dL (75-110); POTASSIUM 5.2 mmol/L (3.6-5.0); TOTAL PROTEIN 4.5 g/dL (6.3-8.2)
[2020-01-13] MEDS: MIDODRINE HCL 5 MG TABLET PO SCH ×3 (10:08→17:46)
[2020-01-13] MEDS: NICOTINE 14 MG/24 HR PATCH.TD24 TD SCH (10:08)
[2020-01-13] MEDS: ENOXAPARIN SODIUM INJ 40 MG/0.4 ML DISP.SYRIN SUBCUT SCH (10:09)
[2020-01-13] MEDS: FLUOXETINE HCL 20 MG CAPSULE PO SCH (10:10)
[2020-01-13] MEDS: FUROSEMIDE 40 MG TABLET PO SCH (10:10)
[2020-01-13] MEDS: MULTIVITS W-MIN/IRON SOLN 60 ML PO SCH (10:10)
[2020-01-13] MEDS: FLUTICASONE/UMECLIDIN/VILANTER 100-62.5-25 MCG/DOSE IH SCH (10:11)
--- NOTE | 2020-01-13 15:12 | Progress Note ---
Provider Note Provider Note: CARDIOLOGY PROGRESS NOTE by Dr. Jay Schmitt on 01/13/2020. SUBJECTIVE: The patient continues to have nausea. He also vomited once. His p.o. intake is poor. He also has diarrhea but less so. But he has been passing dark tarry watery stools. His hemoglobin is come down again. Hence I contacted Dr. San who due to upper GI endoscopy and there was a 2 cm duodenal ulcer present which which had a bleeding site that was cauterized. This bleeding site was different from previous site that was injected. He also became hypotensive and is on dopamine at 5 mcg/kg/min to maintain his blood pressure. There is no atrioventricular is being seen on the monitor. There is no firing of his AICD. PHYSICAL EXAMINATION: The patient appears to be chronically ill and malnourished and emaciated. Selected Entries 01/13/20 23:50 Temperature 97.4 F Temperature Axillary Source Pulse Rate 79 Respiratory 21 H Rate Blood Pressure 96/45 L Blood Pressure 62 Mean BP Location Right Arm BP Position Supine HEAD: Is atraumatic normocephalic. EYES: Pupils are equal round regular reactive to light and accommodation. Extraocular movements are normal. There is no conjunctival pallor. There is no scleral icterus. EARS: Tympanic membranes are intact. External auditory canals are clear. NOSE: There is no deviated nasal septum. There is no inflammation of the nasal mucous membrane. MOUTH: Mucous membranes of mouth are dry tongue is still dry. THROAT: There is no redness of the oropharynx. There is no exudates. 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 There is no catie-care ecchymosis. NECK: Supple. There is no JVD present. Carotids are equal there is no bruit. There is no lymphadenopathy. There is no goiter. There is no accessory muscle respiration use. Trachea central. LUNGS: Shows diminished air entry prolonged expiration there is bibasilar rales of CHF. There is no rhonchi or wheezing. There is no chest wall tenderness on palpation. On palpation there is hyperresonance. There is no bibasilar rales of heart failure. HEART: S1-S2 is heard. There is no S3 gallop. There is no S4 gallop there is systolic murmur left sternal border and the apex there is no rub. ABDOMEN: Soft. There is no hepatosplenomegaly. Bowel sounds are normal. There is no hepatosplenomegaly. EXTREMITIES: There is diminished bilateral femoral pulses with bruits. 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 He has bilateral femoral bruits present. Leg pulses are diminished. There is no pedal edema bilaterally. There is no DVT or cellulitis. There is no cyanosis or clubbing. 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 PSYCHIATRIC: Patient is a patient judgment insight are intact his affect is normal, he is not agitated or anxious. The patient's 24-hour intake is 3591mL. Output was 1500 mL. Labs- All tests 24 hr 01/13/20 01/13/20 01/13/20 05:50 05:50 11:40 WBC 6.5 RBC 2.62 L Hgb 8.5 L Hct 24.6 L MCV 94 MCH 32.4 MCHC 34.6 RDW 14.9 H Plt Count 138 L Sodium 132.0 L Potassium 5.2 H Chloride 99 Carbon Dioxide 25 Anion Gap 8 BUN 91 H Creatinine 1.38 H Est GFR ( Amer) > 60 Est GFR (MDRD) Non-Af 51 L Glucose 89 Calcium 8.1 L Total Bilirubin 0.9 Direct Bilirubin 0.6 H Neonat Total Bilirubin Not Reportable Neonat Direct Bilirubin Not Reportable Neonat Indirect Bili Not Reportable AST 48 ALT 58 H Alkaline Phosphatase 181 H Total Protein 4.5 L Albumin 2.3 L COVID-19 Source See comment Chest X-Ray 12/24/19 19:50 IMPRESSION: New right basilar airspace consolidative change, suspicious for pneumonia. Head CT 12/24/19 20:48 IMPRESSION: 1. No acute intracranial findings. 2. Senescent changes with chronic microvascular ischemia and old lacunar infarcts. Chest X-Ray 12/28/19 00:00 IMPRESSION: 1. New right pleural effusion since 12/24/2019, with worsening right pulmonary infiltrate, likely pneumonia. Chest X-Ray 12/29/19 00:00 IMPRESSION: Right internal jugular catheter as described. Improving right lower lobe pneumonia. GI Bleed Scan Nuclear Medicine 01/04/20 00:00 IMPRESSION: EVIDENCE OF ACTIVE GASTROINTESTINAL BLEEDING. POINT OF ORIGIN IS IN THE RIGHT UPPER QUADRANT. Chest X-Ray 01/05/20 06:00 IMPRESSION: Improved but persistent patchy right basilar airspace disease and trace effusion. Abdomen Ultrasound 01/07/20 00:00 IMPRESSION: NO ABDOMINAL AORTIC ANEURYSM. Abdomen/Pelvis CT 01/12/20 16:00 IMPRESSION: Wall thickening in the rectosigmoid consistent with colitis. There is an aortobifemoral graft which appears patent. However the left superficial femoral artery appears occluded in the visualized segments of the proximal thigh. Recommend correlation with CTA or arterial Doppler. This finding was discussed with Dr Alicia Brizuela @ 2003 Subcutaneous and intra-abdominal stranding which may reflect anasarca Renal cysts with marked atrophy of the left kidney Right basilar atelectasis and pleural effusion Additional chronic changes as above IMPRESSION/RECOMMENDATION: 1. 2 cm duodenal ulcer with bleeding site that was cauterized: This is the cause of the patient's diarrhea due to black tarry watery stools. Place the patient on proton pump inhibitor. We will monitor the patient's hemoglobin closely. 2. Acute anemia: The patient's hemoglobin is still dropping and today 8.5. 3. Acute on chronic systolic heart failure.: This seems to be compensated. Hold the patient's Coreg and midodrine for possibly these causing the patient's diarrhea. Continue midodrine. To new dobutamine at 5 mcg/kg/min to keep her blood pressure up. 4. Acute nonoliguric renal failure. Patient with good urine output. Partly the BUN/creatinine secondary to patient's absorption of blood from his GI tract about the ligament of Treitz. Patient BUN/creatinine is improving. Although his BUN is 70 his creatinine is 1.20 and his GFR is greater than 60. The BUN being high is most likely secondary to blood in the gut. 5. Hypokalemia: The patient's potassium is normal after replacement. 6. Severe mitral regurgitation, and severe tricuspid regurgitation and severe pulmonary hypertension. 7. DIlated cardiomyopathy and ischemic cardiomyopathy with severely reduced LV ejection fraction. Continue beta-abhishek and Entresto. Continue Lasix. 8.. COPD: At present no acute exacerbation. Will change albuterol nebulizer treatment to Xopenex treatment 9. Coronary artery disease. History of old myocardial infarction and history of coronary bypass graft surgery. No anginal symptoms. Continue anti-CAD medication, as being down now. Due to her drop in blood pressure effect of nitrates this has been held. 10. History of hypertension: Blood pressure low now requiring pressors. 11. History of AICD: No firing of his AICD recently. 12. Peripheral vascular disease: History of past history of left femoropopliteal bypass surgery. Abdominal ultrasound shows no evidence of abdominal aortic aneurysm. Findings of the CT scan noted. There is no acute limb ischemia seen at present. 13 History of pancytopenia. Note that the platelets are coming up. 14. Tobacco abuse disorder. We will continue the patient on NicoDerm patch 15. History of facial skin cancer. The patient will be requiring radiation treatment as per Dr. Dominog, radiation oncologist in [place]. 16. Elevated digoxin level without any evidence of digitoxicity. We will discontinue the patient's digoxin. The patient is low back to 1.7. But in view of the patient's renal insufficiency will not reinstitute digoxin. 17. Upper GI bleed. Hopefully this. After the patient's bleeding site and the general surgery cauterized. 18. Hypotension: Blood pressure is low normal on inotropes. We will try to wean the patient off dobutamine, dopamine and vasopressin. 19. Back pain. Patient has history of back surgery and chronic back pain. This is improved with morphine. There is no abdominal aortic aneurysm we In view of the patient's diarrhea will stop the patient's Coreg. Will hold the patient's Entresto. We will continue the patient's pantoprazole. We will get an abdominal/pelvis CT. Medications reviewed. Medical regimen management plan discussed with the patient's daughter. Medical decision making is of high complexity. 40 minutes spent with patient more than 50% of time spent in direct patient care.
[2020-01-13] MEDS ORDERED: EPINEPHRINE INJ 1 MG/10 ML DISP.SYRIN ONE (16:57)
[2020-01-13] MEDS ORDERED: GLUCAGON,HUMAN RECOMB 1 MG INJ ONE (16:58)
[2020-01-13] MEDS ORDERED: PROPOFOL INJ 200 MG/20 ML VIAL IV ONE (17:35)
[2020-01-13] MEDS ORDERED: MIDAZOLAM 2 MG/2 ML INJ ONE (17:46)
--- NOTE | 2020-01-13 18:47 | PDOC PROGRESS REPORT ---
Subjective Progress Note for:: 01/13/20 Subjective:: I saw him on 01/05/2020 for active GI bleeding and did an EGD with control of bleeding of a duodenal ulcer. Consultation was requested again for drop in his H&H. His hemoglobin was 7.9 on 01/11/2020 for which she received 2 units of blood on the same day. Immediately posttransfusion his hemoglobin was 10, but at midday yesterday it was 8 and this morning it was 8.5. According to the nurses his stool was brown yesterday but this was said to be black today. He is requiring dopamine for his hypotension. He denies abdominal pain. He was on Pepcid until this was changed to pantoprazole 2 days ago. He is receiving Lovenox 40 mg daily and heparin flushes for his central line. Reason For Visit: GI BLEED, CHF Physical Exam Vital Signs: Temp Pulse Resp BP Pulse Ox 97.6 F 82 16 92/47 L 95 01/13/20 10:00 01/13/20 15:00 01/13/20 04:01 01/13/20 15:00 01/13/20 04:01 Intake & Output 01/12/20 01/13/20 01/14/20 06:59 06:59 06:59 Intake Total 993 3591 Output Total 1475 1500 Balance -482 2091 Weight 47.7 kg 47.9 kg Exam: General: Patient is alert and looks pale. HEENT: There is no jaundice. PERRLA. Oropharynx normal Respiratory: No chest deformity. No respiratory distress. Chest wall palp itation was unremarkable. Breath sounds were normal Cardiovascular: Heart sounds 1 and 2 normal with no murmurs. Abdominal: Not distended. Soft and nontender. Liver and spleen not palpable. No ascites demonstrated. Bowel sounds active. Rectal examination was deferred. Extremities: No edema Neurological: Alert and oriented x4. Results Laboratory Results: 01/13/20 05:50 01/13/20 05:50 01/13/20 01/13/20 05:50 05:50 WBC 6.5 RBC 2.62 L Hgb 8.5 L Hct 24.6 L MCV 94 MCH 32.4 MCHC 34.6 RDW 14.9 H Plt Count 138 L Sodium 132.0 L Potassium 5.2 H Chloride 99 Carbon Dioxide 25 Anion Gap 8 BUN 91 H Creatinine 1.38 H Est GFR ( Amer) > 60 Glucose 89 Calcium 8.1 L Total Bilirubin 0.9 AST 48 Alkaline Phosphatase 181 H Total Protein 4.5 L Albumin 2.3 L 01/10/20 18:13 Stool - Stool - Final 01/10/20 18:13 Stool - Stool Stool Culture - Final Yeast, Not Yris Albicans 12/24/19 12/25/19 12/25/19 21:19 02:36 09:38 Creatine Kinase Troponin I 0.043 0.045 0.045 NT-Pro-B Natriuret Pep [id number] H 12/26/19 12/26/19 09:20 09:20 Creatine Kinase 47 L Troponin I 0.040 NT-Pro-B Natriuret Pep [id number] H Impressions: Head CT 12/24/19 20:48 IMPRESSION: 1. No acute intracranial findings. 2. Senescent changes with chronic microvascular ischemia and old lacunar infarcts. GI Bleed Scan Nuclear Medicine 01/04/20 00:00 IMPRESSION: EVIDENCE OF ACTIVE GASTROINTESTINAL BLEEDING. POINT OF ORIGIN IS IN THE RIGHT UPPER QUADRANT. Chest X-Ray 01/05/20 06:00 IMPRESSION: Improved but persistent patchy right basilar airspace disease and trace effusion. Abdomen Ultrasound 01/07/20 00:00 IMPRESSION: NO ABDOMINAL AORTIC ANEURYSM. Abdomen/Pelvis CT 01/12/20 16:00 IMPRESSION: Wall thickening in the rectosigmoid consistent with colitis. There is an aortobifemoral graft which appears patent. However the left superficial femoral artery appears occluded in the visualized segments of the proximal thigh. Recommend correlation with CTA or arterial Doppler. This finding was discussed with Dr Alicia Brizuela @ 2003 Subcutaneous and intra-abdominal stranding which may reflect anasarca Renal cysts with marked atrophy of the left kidney Right basilar atelectasis and pleural effusion Additional chronic changes as above Assessment & Plan - Diagnosis (1) Acute GI hemorrhage Is this a current diagnosis for this admission?: Yes Plan: His hemoglobin has dropped since his transfusion 2 days ago and he is now having black stools. He has been receiving iron orally which may also explain some of his dark-colored stools. I will repeat his EGD with further control of bleeding if necessary. (2) Duodenal ulcer Is this a current diagnosis for this admission?: Yes Plan: Continue pantoprazole twice a day (3) Anemia due to GI blood loss Is this a current diagnosis for this admission?: Yes (4) Thrombocytopenia Is this a current diagnosis for this admission?: Yes - Time Time Spent with patient: 15-24 minutes Level of Care: MEDICAL
--- NOTE | 2020-01-13 18:55 | Operative Report ---
Operative Report DATE OF SURGERY: 01/13/20 Operative Report: Pre-op diagnosis: History of bleeding duodenal ulcer Post-op diagnosis: 1. Large duodenal ulcer with oozing of blood from edge Surgery: Esophagogastroduodenoscopy with epinephrine injection, cauterization and biopsy Medications: As per anesthesia Tissue removed: Antral and duodenal ulcer biopsy for pathology Procedure: After informed consent obtained from patient, the throat was sprayed with Hurricane and conscious sedation was achieved. The upper endoscope was inserted into the esophagus under direct vision and advanced into the stomach. The duodenum was entered and examined to the second part. Endoscope was then slowly pulled out of the patient as the mucosa was examined into details. Patient tolerated procedure well. Findings Esophagus: Normal Antrum: Normal Body: Normal Fundus: Normal Duodenum first part: Normal Duodenum second part: A 2 cm ulcer was noted at the junction between the first and second part of duodenum with surrounding edema and irregular mucosa. Some parts of the edge was raised. There was oozing of blood from a pinpoint area along the edge of the ulcer but this was not the same area that was treated 1 wk ago. Epinephrine 1 in 10,000 was injected around the edge and the base of the ulcer. The bleeding area was then cauterized. Biopsy was taken from the edge of the ulcer. Plan: Await pathology. Continue pantoprazole twice a day. Avoid anticoagulants as much as possible. Repeat EGD in 6 to 8 weeks to confirm healing OPERATION: .
[2020-01-13] MEDS ORDERED: FLUMAZENIL INJ 0.5 MG/5 ML VIAL IV PRN ×2 (20:22)
[2020-01-13] MEDS ORDERED: FLUMAZENIL INJ 0.5 MG/5 ML VIAL IV ONE (20:30)
[2020-01-14] MEDS: ONDANSETRON HCL INJ/PF 4 MG/2 ML SDV IV PRN (00:50)
[2020-01-14] MEDS: LOPERAMIDE HCL 2 MG CAPSULE PO SCH ×4 (05:24→23:44)
[2020-01-14] MEDS: PANTOPRAZOLE SODIUM 40 MG TABLET.DR PO SCH ×2 (05:24→17:52)
[2020-01-14 06:19] LABS: HEMATOCRIT 21.4 % (37.9-51.0); MEAN CORPUSCULAR HEMOGLOBIN 32.7 pg (27.0-33.4); MEAN CORPUSCULAR HGB CONC 34.8 g/dL (32.0-36.0); MEAN CORPUSCULAR VOLUME 94 fl (80-97); PLATELET COUNT 126 10^3/uL (150-450); RED BLOOD COUNT 2.28 10^6/uL (4.35-5.55)
[2020-01-14 06:21] LABS: HEMOGLOBIN 7.5 g/dL (13.5-17.0)
[2020-01-14] MEDS ORDERED: FUROSEMIDE INJ/PF 20 MG/2 ML SDV IV PRN ×2 (06:42→16:15)
[2020-01-14 06:54] LABS: ALBUMIN 2.2 g/dL (3.5-5.0); ALKALINE PHOSPHATASE 167 U/L (38-126); ANION GAP 11 (5-19); ASPARTATE AMINO TRANSFERASE 42 U/L (17-59); BILIRUBIN,DIRECT 0.6 mg/dL (0.0-0.4); BILIRUBIN,TOTAL 0.6 mg/dL (0.2-1.3); BLOOD UREA NITROGEN 104 mg/dL (7-20); CALCIUM 8.1 mg/dL (8.4-10.2); CARBON DIOXIDE 23 mmol/L (22-30); CHLORIDE 100 mmol/L (98-107); GLUCOSE 88 mg/dL (75-110); POTASSIUM 4.9 mmol/L (3.6-5.0); TOTAL PROTEIN 4.4 g/dL (6.3-8.2)
[2020-01-14 07:01] LABS: APPEARANCE,URINE SLIGHTLY-CLOUDY; BILIRUBIN,URINE NEGATIVE (NEGATIVE); COLOR,URINE YELLOW; GLUCOSE, URINE NEGATIVE (NEGATIVE); KETONES,URINE NEGATIVE (NEGATIVE); LEUKOCYTE ESTERASE,URINE LARGE (NEGATIVE); NITRITE,URINE NEGATIVE (NEGATIVE); PROTEIN,URINE NEGATIVE (NEGATIVE); UROBILINOGEN,URINE NEGATIVE mg/dL (<2.0)
[2020-01-14] MEDS: FUROSEMIDE 40 MG TABLET PO SCH (10:24)
[2020-01-14] MEDS: NICOTINE 14 MG/24 HR PATCH.TD24 TD SCH (10:24)
[2020-01-14] MEDS: FLUOXETINE HCL 20 MG CAPSULE PO SCH (10:24)
[2020-01-14] MEDS: MIDODRINE HCL 5 MG TABLET PO SCH ×3 (10:24→17:52)
[2020-01-14] MEDS: MULTIVITS W-MIN/IRON SOLN 60 ML PO SCH (10:25)
[2020-01-14] MEDS: ENOXAPARIN SODIUM INJ 40 MG/0.4 ML DISP.SYRIN SUBCUT SCH (10:25)
[2020-01-14] MEDS: FLUTICASONE/UMECLIDIN/VILANTER 100-62.5-25 MCG/DOSE IH SCH (10:27)
[2020-01-14] MEDS: DOPAMINE HCL 800 MG/D5W 250 ML IV PRN (19:35)
[2020-01-14] MEDS: FUROSEMIDE INJ/PF 20 MG/2 ML SDV IV PRN ×2 (20:37→23:44)
--- NOTE | 2020-01-14 21:58 | Progress Note ---
Provider Note Provider Note: CARDIOLOGY PROGRESS NOTE by Dr. Thompson has 1 on 01/14/2020. SUBJECTIVE: Patient denies any nausea vomiting. There is no abdominal pain he is has no further diarrhea. There is no arrhythmias seen on the monitor. The patient denies any shortness of breath or PND orthopnea or leg edema or anginal symptoms. There is no firing of his AICD. He still complains of feeling very weak and very fatigued. PHYSICAL EXAMINATION: The patient is a frail build and appears to be chronically ill and malnourished. He is emaciated. Selected Entries 01/14/20 10:00 Temperature 97.2 F Heart Rate ( 79 Monitors) Blood Pressure 108/48 L Blood Pressure 68 Mean Oxygen Delivery Room Air Method ( includes room air) O2 Sat by Pulse 96 Oximetry by Telemetry HEAD: Is atraumatic normocephalic. EYES: Pupils are equal round regular reactive to light and accommodation. Extraocular movements are normal. There is no conjunctival pallor. There is no scleral icterus. EARS: Tympanic membranes are intact. External auditory canals are clear. NOSE: There is no deviated nasal septum. There is no inflammation of the nasal mucous membrane. MOUTH: Mucous membranes of mouth are dry tongue is still dry. THROAT: There is no redness of the oropharynx. There is no exudates. 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 There is no catie-care ecchymosis. NECK: Supple. There is no JVD present. Carotids are equal there is no bruit. There is no lymphadenopathy. There is no goiter. There is no accessory muscle respiration use. Trachea central. LUNGS: Shows diminished air entry prolonged expiration there is bibasilar rales of CHF. There is no rhonchi or wheezing. There is no chest wall tenderness on palpation. On palpation there is hyperresonance. There is no bibasilar rales of heart failure. HEART: S1-S2 is heard. There is no S3 gallop. There is no S4 gallop there is systolic murmur left sternal border and the apex there is no rub. ABDOMEN: Soft. There is no hepatosplenomegaly. Bowel sounds are normal. There is no hepatosplenomegaly. EXTREMITIES: There is diminished bilateral femoral pulses with bruits. 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 He has bilateral femoral bruits present. Leg pulses are diminished. There is no pedal edema bilaterally. There is no DVT or cellulitis. There is no cyanosis or clubbing. MICRO COMPUTER DATA PROCESSOR: The patient is asleep, but when aroused/awaken he is oriented x3 with no focal deficits. PSYCHIATRIC: Patient is a patient judgment insight are intact his affect is normal, he is not agitated or anxious. The patient's intake and output is not accurate. Labs- All tests 24 hr 01/13/20 01/14/20 01/14/20 11:40 05:30 05:30 WBC 5.0 RBC 2.28 L Hgb 7.5 L Hct 21.4 L MCV 94 MCH 32.7 MCHC 34.8 RDW 15.0 H Plt Count 126 L Sodium 133.7 L Potassium 4.9 Chloride 100 Carbon Dioxide 23 Anion Gap 11 BUN 104 H Creatinine 1.95 H Est GFR ( Amer) 42 L Est GFR (MDRD) Non-Af 34 L Glucose 88 Calcium 8.1 L Total Bilirubin 0.6 Direct Bilirubin 0.6 H Neonat Total Bilirubin Not Reportable Neonat Direct Bilirubin Not Reportable Neonat Indirect Bili Not Reportable AST 42 ALT 49 Alkaline Phosphatase 167 H Total Protein 4.4 L Albumin 2.2 L Urine Color Urine Appearance Urine pH Ur Specific Hye Urine Protein Urine Glucose (UA) Urine Ketones Urine Blood Urine Nitrite Urine Bilirubin Urine Urobilinogen Ur Leukocyte Esterase Urine WBC (Auto) Urine RBC (Auto) U Hyaline Cast (Auto) Urine Mucus (Auto) Urine Ascorbic Acid COVID-19 (JONH) Not Detected Blood Type Antibody Screen Crossmatch 01/14/20 01/14/20 05:35 16:48 WBC RBC Hgb Hct MCV MCH MCHC RDW Plt Count Sodium Potassium Chloride Carbon Dioxide Anion Gap BUN Creatinine Est GFR ( Amer) Est GFR (MDRD) Non-Af Glucose Calcium Total Bilirubin Direct Bilirubin Neonat Total Bilirubin Neonat Direct Bilirubin Neonat Indirect Bili AST ALT Alkaline Phosphatase Total Protein Albumin Urine Color YELLOW Urine Appearance SLIGHTLY-CLOUDY Urine pH 5.0 Ur Specific Hye 1.020 Urine Protein NEGATIVE Urine Glucose (UA) NEGATIVE Urine Ketones NEGATIVE Urine Blood MODERATE H Urine Nitrite NEGATIVE Urine Bilirubin NEGATIVE Urine Urobilinogen NEGATIVE Ur Leukocyte Esterase LARGE H Urine WBC (Auto) 41 Urine RBC (Auto) 5 U Hyaline Cast (Auto) 1 Urine Mucus (Auto) RARE Urine Ascorbic Acid NEGATIVE COVID-19 (JONH) Blood Type B POSITIVE Antibody Screen NEGATIVE Crossmatch See Detail Chest X-Ray 12/24/19 19:50 IMPRESSION: New right basilar airspace consolidative change, suspicious for pneumonia. Head CT 12/24/19 20:48 IMPRESSION: 1. No acute intracranial findings. 2. Senescent changes with chronic microvascular ischemia and old lacunar infarcts. Chest X-Ray 12/28/19 00:00 IMPRESSION: 1. New right pleural effusion since 12/24/2019, with worsening right pulmonary infiltrate, likely pneumonia. Chest X-Ray 12/29/19 00:00 IMPRESSION: Right internal jugular catheter as described. Improving right lower lobe pneumonia. GI Bleed Scan Nuclear Medicine 01/04/20 00:00 IMPRESSION: EVIDENCE OF ACTIVE GASTROINTESTINAL BLEEDING. POINT OF ORIGIN IS IN THE RIGHT UPPER QUADRANT. Chest X-Ray 01/05/20 06:00 IMPRESSION: Improved but persistent patchy right basilar airspace disease and trace effusion. Abdomen Ultrasound 01/07/20 00:00 IMPRESSION: NO ABDOMINAL AORTIC ANEURYSM. Abdomen/Pelvis CT 01/12/20 16:00 IMPRESSION: Wall thickening in the rectosigmoid consistent with colitis. There is an aortobifemoral graft which appears patent. However the left superficial femoral artery appears occluded in the visualized segments of the proximal thigh. Recommend correlation with CTA or arterial Doppler. This finding was discussed with Dr Alicia Brizuela @ 2003 Subcutaneous and intra-abdominal stranding which may reflect anasarca Renal cysts with marked atrophy of the left kidney Right basilar atelectasis and pleural effusion Additional chronic changes as above IMPRESSION/RECOMMENDATION: 1. 2 cm duodenal ulcer with bleeding site that was cauterized: The patient has not had any further diarrhea. There is no nausea or vomiting. But appetite is decreased. Seems that the bleeding is stopped. 2. Acute anemia: The patient's hemoglobin is still dropping and today hemoglobin is 7 .5. Will transfuse 2 units. 3. Acute on chronic systolic heart failure.: This seems to be compensated. Hold the patient's Coreg and midodrine for possibly these causing the patient's diarrhea. Continue midodrine. Since blood pressure is up we will decrease the dopamine to 2.5 mcg/kg/min, and later wean off the dopamine. 4. Acute nonoliguric renal failure. Patient with good urine output. Partly the BUN/creatinine secondary to patient's absorption of blood from his GI tract about the ligament of Treitz. Patient BUN/creatinine is improving. Although his BUN is 70 his creatinine is 1.20 and his GFR is greater than 60. The BUN being high is most likely secondary to blood in the gut. 5. Hypokalemia: The patient's potassium is normal after replacement. 6. Severe mitral regurgitation, and severe tricuspid regurgitation and severe pulmonary hypertension. 7. DIlated cardiomyopathy and ischemic cardiomyopathy with severely reduced LV ejection fraction. We will restart the patient's Coreg and Entresto later on. 8.. COPD: At present no acute exacerbation. Continue treatment to Xopenex treatment 9. Coronary artery disease. History of old myocardial infarction and history of coronary bypass graft surgery. No anginal symptoms. Continue anti-CAD medication, as being down now. Due to her drop in blood pressure effect of nitrates this has been held. 10. History of hypertension: Blood pressure low now requiring pressors. 11. History of AICD: No firing of his AICD recently. 12. Peripheral vascular disease: History of past history of left femoropopliteal bypass surgery. Abdominal ultrasound shows no evidence of abdominal aortic aneurysm. Findings of the CT scan noted. There is no acute limb ischemia seen at present. 13 History of pancytopenia. Note that the platelets are coming up. 14. Tobacco abuse disorder. We will continue the patient on NicoDerm patch 15. History of facial skin cancer. The patient will be requiring radiation treatment as per Dr. Domingo, radiation oncologist in [place]. 16. Elevated digoxin level without any evidence of digitoxicity. We will discontinue the patient's digoxin. The patient is low back to 1.7. But in view of the patient's renal insufficiency will not reinstitute digoxin. 17. Upper GI bleed. Hopefully this. After the patient's bleeding site and the general surgery cauterized. 18. Hypotension: Blood pressure is low normal on inotropes. We will try to wean the patient off dobutamine, dopamine and vasopressin. 19. Back pain. Patient has history of back surgery and chronic back pain. This is improved with morphine. There is no abdominal aortic aneurysm we Medications reviewed. Medical regimen management plan discussed with the patient's daughter. Medical decision making is of high complexity. 40 minutes spent with patient more than 50% of time spent in direct patient care.
[2020-01-15 02:26] LABS: HEMATOCRIT 30.4 % (37.9-51.0); MEAN CORPUSCULAR HGB CONC 35.5 g/dL (32.0-36.0); RED BLOOD COUNT 3.37 10^6/uL (4.35-5.55); RED CELL DISTRIBUTION WIDTH 14.9 % (11.5-14.0); WHITE BLOOD COUNT 3.3 10^3/uL (4.0-10.5)
[2020-01-15 03:13] LABS: ABSOLUTE LYMPHOCYTES# (MANUAL) 0.4 10^3/uL (0.5-4.7); ABSOLUTE MONOCYTES # (MANUAL) 0.6 10^3/uL (0.1-1.4); BASOPHILS % (MANUAL) 0 % (0-2); EOSINOPHILS % (MANUAL) 0 % (0-6); LYMPHOCYTES % (MANUAL) 12 % (13-45); MONOCYTES % (MANUAL) 18 % (3-13); SEGMENTED NEUTROPHILS % (MAN) 70 % (42-78); TOTAL CELLS COUNTED 100
[2020-01-15 03:17] LABS: PLATELET COMMENT DECREASED
[2020-01-15 03:19] LABS: PLATELET COUNT 98 10^3/uL (150-450)
[2020-01-15 03:23] LABS: HEMOGLOBIN 10.8 g/dL (13.5-17.0)
[2020-01-15 03:25] LABS: MEAN CORPUSCULAR VOLUME 90 fl (80-97)
[2020-01-15] MEDS: LOPERAMIDE HCL 2 MG CAPSULE PO SCH ×3 (05:12→17:53)
[2020-01-15] MEDS: PANTOPRAZOLE SODIUM 40 MG TABLET.DR PO SCH ×2 (05:12→17:53)
[2020-01-15 08:26] LABS: HEMOGLOBIN 10.2 g/dL (13.5-17.0); MEAN CORPUSCULAR HEMOGLOBIN 31.9 pg (27.0-33.4); MEAN CORPUSCULAR VOLUME 91 fl (80-97); RED BLOOD COUNT 3.19 10^6/uL (4.35-5.55); RED CELL DISTRIBUTION WIDTH 15.2 % (11.5-14.0); WHITE BLOOD COUNT 3.3 10^3/uL (4.0-10.5)
[2020-01-15 08:38] LABS: ALKALINE PHOSPHATASE 175 U/L (38-126); ANION GAP 9 (5-19); ASPARTATE AMINO TRANSFERASE 39 U/L (17-59); BILIRUBIN,DIRECT 0.5 mg/dL (0.0-0.4); BILIRUBIN,TOTAL 0.9 mg/dL (0.2-1.3); BLOOD UREA NITROGEN 105 mg/dL (7-20); CALCIUM 7.7 mg/dL (8.4-10.2); CARBON DIOXIDE 25 mmol/L (22-30); CHLORIDE 100 mmol/L (98-107); GLUCOSE 83 mg/dL (75-110); POTASSIUM 4.3 mmol/L (3.6-5.0); TOTAL PROTEIN 4.1 g/dL (6.3-8.2)
[2020-01-15 08:52] LABS: PLATELET COUNT 92 10^3/uL (150-450)
[2020-01-15] MEDS: ENOXAPARIN SODIUM INJ 40 MG/0.4 ML DISP.SYRIN SUBCUT SCH (10:21)
[2020-01-15] MEDS: FLUOXETINE HCL 20 MG CAPSULE PO SCH ×2 (10:22→22:24)
[2020-01-15] MEDS: SACUBITRIL/VALSARTAN 49 MG/51 MG TABLET PO SCH ×2 (10:22→22:23)
[2020-01-15] MEDS: NICOTINE 14 MG/24 HR PATCH.TD24 TD SCH (10:23)
[2020-01-15] MEDS: MIDODRINE HCL 5 MG TABLET PO SCH ×3 (10:23→17:53)
[2020-01-15] MEDS: CARVEDILOL 6.25 MG TABLET PO SCH ×2 (10:24→22:24)
[2020-01-15] MEDS: MULTIVITS W-MIN/IRON SOLN 60 ML PO SCH (10:25)
[2020-01-15] MEDS: FUROSEMIDE 40 MG TABLET PO SCH (10:25)
[2020-01-15] MEDS: FLUTICASONE/UMECLIDIN/VILANTER 100-62.5-25 MCG/DOSE IH SCH (10:25)
--- NOTE | 2020-01-15 14:56 | Progress Note ---
Provider Note Provider Note: CARDIOLOGY PROGRESS NOTE by Dr. Alicia Dooley on 01/15/2020. SUBJECTIVE: The patient is a little more awake. He did eat some food. He still complains of fatigue. He has had 2 semisolid stools which did not contain blood and did not appear to be black or tarry in color. There is no abdominal pain. There is no nausea vomiting. His hemoglobin this morning stable. His GFR is improved. There is no arrhythmias seen on the monitor. There is no firing of AICD. The patient denies any chest pain shortness of breath PND orthopnea or leg edema. The patient's Covid19 test came back negative PHYSICAL EXAMINATION: Patient appears to be chronically ill and malnourished. He appears emaciated. Selected Entries 01/14/20 01/15/20 01/15/20 09:00 16:00 16:15 Pulse Rate Afebrile 60 Blood Pressure 115/51 L Blood Pressure 72 Mean O2 Sat by Pulse 96 95 Oximetry by Telemetry O2 sats on room air HEAD: Is atraumatic normocephalic. EYES: Pupils are equal round regular reactive to light and accommodation. Extraocular movements are normal. There is no conjunctival pallor. There is no scleral icterus. EARS: Tympanic membranes are intact. External auditory canals are clear. NOSE: There is no deviated nasal septum. There is no inflammation of the nasal mucous membrane. MOUTH: Mucous membranes of mouth are dry tongue is still dry. THROAT: There is no redness of the oropharynx. There is no exudates. 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 There is no catie-care ecchymosis. NECK: Supple. There is no JVD present. Carotids are equal there is no bruit. There is no lymphadenopathy. There is no goiter. There is no accessory muscle respiration use. Trachea central. LUNGS: Shows diminished air entry prolonged expiration there is bibasilar rales of CHF. There is no rhonchi or wheezing. There is no chest wall tenderness on palpation. On palpation there is hyperresonance. There is no bibasilar rales of heart failure. HEART: S1-S2 is heard. There is no S3 gallop. There is no S4 gallop there is systolic murmur left sternal border and the apex there is no rub. ABDOMEN: Soft. There is no hepatosplenomegaly. Bowel sounds are normal. There is no hepatosplenomegaly. EXTREMITIES: There is diminished bilateral femoral pulses with bruits. 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 He has bilateral femoral bruits present. Leg pulses are diminished. There is no pedal edema bilaterally. There is no DVT or cellulitis. There is no cyanosis or clubbing. SURVEYOR OIL WELL DIRECTIONAL: The patient is asleep, but when aroused/awaken he is oriented x3 with no focal deficits. PSYCHIATRIC: Patient is a patient judgment insight are intact his affect is normal, he is not agitated or anxious. The patient's 4-hour intake is 2225 mL. Output for the 24 hours is thousand final mL. Labs- All tests 24 hr 01/14/20 01/15/20 01/15/20 16:48 01:48 08:05 WBC 3.3 L 3.3 L RBC 3.37 L 3.19 L Hgb 10.8 L D 10.2 L Hct 30.4 L 29.0 L MCV 90 D 91 MCH 32.0 31.9 MCHC 35.5 35.0 RDW 14.9 H 15.2 H Plt Count 98 L 92 L Lymph % (Auto) Not Reportable Powell % (Auto) Not Reportable Eos % (Auto) Not Reportable Baso % (Auto) Not Reportable Absolute Neuts (auto) Not Reportable Absolute Lymphs (auto) Not Reportable Absolute Monos (auto) Not Reportable Absolute Eos (auto) Not Reportable Absolute Basos (auto) Not Reportable Total Counted 100 Seg Neutrophils % Not Reportable Seg Neuts % (Manual) 70 Lymphocytes % (Manual) 12 L Monocytes % (Manual) 18 H Eosinophils % (Manual) 0 Basophils % (Manual) 0 Abs Neuts (Manual) 2.3 Abs Lymphs (Manual) 0.4 L Abs Monocytes (Manual) 0.6 Absolute Eos (Manual) 0.0 Abs Basophils (Manual) 0.0 Platelet Comment DECREASED Sodium Potassium Chloride Carbon Dioxide Anion Gap BUN Creatinine Est GFR ( Amer) Est GFR (MDRD) Non-Af Glucose Calcium Total Bilirubin Direct Bilirubin Neonat Total Bilirubin Neonat Direct Bilirubin Neonat Indirect Bili AST ALT Alkaline Phosphatase Total Protein Albumin Crossmatch See Detail 01/15/20 08:05 WBC RBC Hgb Hct MCV MCH MCHC RDW Plt Count Lymph % (Auto) Powell % (Auto) Eos % (Auto) Baso % (Auto) Absolute Neuts (auto) Absolute Lymphs (auto) Absolute Monos (auto) Absolute Eos (auto) Absolute Basos (auto) Total Counted Seg Neutrophils % Seg Neuts % (Manual) Lymphocytes % (Manual) Monocytes % (Manual) Eosinophils % (Manual) Basophils % (Manual) Abs Neuts (Manual) Abs Lymphs (Manual) Abs Monocytes (Manual) Absolute Eos (Manual) Abs Basophils (Manual) Platelet Comment Sodium 133.7 L Potassium 4.3 Chloride 100 Carbon Dioxide 25 Anion Gap 9 BUN 105 H Creatinine 1.72 H Est GFR ( Amer) 48 L Est GFR (MDRD) Non-Af 40 L Glucose 83 Calcium 7.7 L Total Bilirubin 0.9 Direct Bilirubin 0.5 H Neonat Total Bilirubin Not Reportable Neonat Direct Bilirubin Not Reportable Neonat Indirect Bili Not Reportable AST 39 ALT 39 Alkaline Phosphatase 175 H Total Protein 4.1 L Albumin 2.0 L Crossmatch Chest X-Ray 12/24/19 19:50 IMPRESSION: New right basilar airspace consolidative change, suspicious for pneumonia. Head CT 12/24/19 20:48 IMPRESSION: 1. No acute intracranial findings. 2. Senescent changes with chronic microvascular ischemia and old lacunar infarcts. Chest X-Ray 12/28/19 00:00 IMPRESSION: 1. New right pleural effusion since 12/24/2019, with worsening right pulmonary infiltrate, likely pneumonia. Chest X-Ray 12/29/19 00:00 IMPRESSION: Right internal jugular catheter as described. Improving right lower lobe pneumonia. GI Bleed Scan Nuclear Medicine 01/04/20 00:00 IMPRESSION: EVIDENCE OF ACTIVE GASTROINTESTINAL BLEEDING. POINT OF ORIGIN IS IN THE RIGHT UPPER QUADRANT. Chest X-Ray 01/05/20 06:00 IMPRESSION: Improved but persistent patchy right basilar airspace disease and trace effusion. Abdomen Ultrasound 01/07/20 00:00 IMPRESSION: NO ABDOMINAL AORTIC ANEURYSM. Abdomen/Pelvis CT 01/12/20 16:00 IMPRESSION: Wall thickening in the rectosigmoid consistent with colitis. There is an aortobifemoral graft which appears patent. However the left superficial femoral artery appears occluded in the visualized segments of the proximal thigh. Recommend correlation with CTA or arterial Doppler. This finding was discussed with Dr Alicia Brizuela @ 2003 Subcutaneous and intra-abdominal stranding which may reflect anasarca Renal cysts with marked atrophy of the left kidney Right basilar atelectasis and pleural effusion Additional chronic changes as above IMPRESSION/RECOMMENDATION: 1. 2 cm duodenal ulcer with bleeding site that was cauterized: The patient has not had any further diarrhea. There is no nausea or vomiting. But appetite is decreased. Seems that the bleeding is stopped. He has no further diarrhea. He has had 2 semisolid stools which are brown in color and not black and tarry. 2. Acute anemia: The patient's hemoglobin is stable at 10.2. Will recheck in the morning 3. Acute on chronic systolic heart failure.: This seems to be stated. We will continue the patient's Lasix, Coreg and Entresto with dopamine at 2.5 mcg/kg/min infusion. Continue midodrine 4. Acute nonoliguric renal failure. Patient with good urine output. Partly the BUN/creatinine secondary to patient's absorption of blood from his GI tract about the ligament of Treitz. The GFR is improved 5. Hypokalemia: The patient's potassium is normal after replacement. 6. Severe mitral regurgitation, and severe tricuspid regurgitation and severe pulmonary hypertension. 7. DIlated cardiomyopathy and ischemic cardiomyopathy with severely reduced LV ejection fraction. Willl continue the patient's Coreg and Entresto . 8.. COPD: At present no acute exacerbation. Continue treatment to Xopenex treatment 9. Coronary artery disease. History of old myocardial infarction and history of coronary bypass graft surgery. No anginal symptoms. Continue anti-CAD medication, as being down now. Due to her drop in blood pressure effect of nitrates this has been held. 10. History of hypertension: Blood pressure low now requiring pressors. 11. History of AICD: No firing of his AICD recently. 12. Peripheral vascular disease: History of past history of left femoropopl iteal bypass surgery. Abdominal ultrasound shows no evidence of abdominal aortic aneurysm. Findings of the CT scan noted. There is no acute limb ischemia seen at present. 13 History of pancytopenia. Note that the platelets are coming up. 14. Tobacco abuse disorder. We will continue the patient on NicoDerm patch 15. History of facial skin cancer. The patient will be requiring radiation treatment as per Dr. Domingo, radiation oncologist in [place]. 16. Elevated digoxin level without any evidence of digitoxicity. We will discontinue the patient's digoxin. TBut in view of the patient's renal insufficiency will not reinstitute digoxin. 17. Hypotension: Blood pressure is low normal on a small dose of dopamine infusion. This is allow the patient to get his Coreg and Entresto. 18. DEPRESSION: We will increase the patient's Prozac to 20 mg p.o. twice daily. Medications reviewed. Medical regimen management plan discussed with the patient's daughter. Medical decision making is of high complexity. 40 minutes spent with patient more than 50% of time spent in direct patient care.
[2020-01-15] MEDS: DOPAMINE HCL/DEXTROSE 5%-WATER 800 MG/250 ML RTUINJ IV PRN (15:16)
[2020-01-15] MEDS: FUROSEMIDE INJ/PF 20 MG/2 ML SDV IV SCH (22:23)
[2020-01-16] MEDS: LOPERAMIDE HCL 2 MG CAPSULE PO SCH ×5 (00:08→23:15)
[2020-01-16] MEDS: PANTOPRAZOLE SODIUM 40 MG TABLET.DR PO SCH ×2 (05:53→16:22)
[2020-01-16 06:48] LABS: HEMATOCRIT 29.6 % (37.9-51.0); HEMOGLOBIN 10.5 g/dL (13.5-17.0); MEAN CORPUSCULAR HEMOGLOBIN 32.3 pg (27.0-33.4); MEAN CORPUSCULAR HGB CONC 35.4 g/dL (32.0-36.0); MEAN CORPUSCULAR VOLUME 91 fl (80-97); RED BLOOD COUNT 3.25 10^6/uL (4.35-5.55); RED CELL DISTRIBUTION WIDTH 15.1 % (11.5-14.0); WHITE BLOOD COUNT 2.7 10^3/uL (4.0-10.5)
[2020-01-16 07:54] LABS: PLATELET COUNT 93 10^3/uL (150-450)
[2020-01-16 07:58] LABS: ALBUMIN 2.1 g/dL (3.5-5.0); ALKALINE PHOSPHATASE 198 U/L (38-126); ANION GAP 8 (5-19); ASPARTATE AMINO TRANSFERASE 34 U/L (17-59); BILIRUBIN,DIRECT 0.6 mg/dL (0.0-0.4); BILIRUBIN,TOTAL 0.8 mg/dL (0.2-1.3); BLOOD UREA NITROGEN 101 mg/dL (7-20); CALCIUM 7.7 mg/dL (8.4-10.2); CARBON DIOXIDE 25 mmol/L (22-30); CHLORIDE 101 mmol/L (98-107); GLUCOSE 77 mg/dL (75-110); POTASSIUM 4.1 mmol/L (3.6-5.0); TOTAL PROTEIN 4.3 g/dL (6.3-8.2)
[2020-01-16] MEDS: MIDODRINE HCL 5 MG TABLET PO SCH ×3 (10:09→18:16)
[2020-01-16] MEDS: FUROSEMIDE INJ/PF 20 MG/2 ML SDV IV SCH ×2 (10:09→21:13)
[2020-01-16] MEDS: SACUBITRIL/VALSARTAN 49 MG/51 MG TABLET PO SCH ×2 (10:09→21:14)
[2020-01-16] MEDS: CARVEDILOL 6.25 MG TABLET PO SCH ×2 (10:09→21:14)
[2020-01-16] MEDS: FLUOXETINE HCL 20 MG CAPSULE PO SCH ×2 (10:09→21:14)
[2020-01-16] MEDS: ENOXAPARIN SODIUM INJ 40 MG/0.4 ML DISP.SYRIN SUBCUT SCH (10:13)
[2020-01-16] MEDS: MULTIVITS W-MIN/IRON SOLN 60 ML PO SCH (10:13)
[2020-01-16] MEDS: FLUTICASONE/UMECLIDIN/VILANTER 100-62.5-25 MCG/DOSE IH SCH (10:14)
[2020-01-16] MEDS: NICOTINE 14 MG/24 HR PATCH.TD24 TD SCH (10:14)
--- NOTE | 2020-01-16 11:06 | Progress Note ---
Provider Note Provider Note: CARDIOLOGY PROGRESS note by Dr. Alicia Dooley on 01/16/2020. Subjective: The patient still requiring dopamine to keep his blood pressure up. He did have some semisolid stools but they are not black in color. His hemoglobin is stable. He denies any chest pain or discomfort he has no PND orthopnea leg edema. There is no symptoms of acute exacerbation of COPD. There is no arrhythmias seen on the monitor. There is no firing of his AICD. PHYSICAL EXAMINATION: The patient appears to be chronically ill. He is malnourished. He is also emaciated. At present in no acute distress. Selected Entries 01/16/20 01/16/20 17:45 18:00 Heart Rate ( 64 Monitors) Blood Pressure 99/48 L O2 Sat by Pulse 97 Oximetry by Respiratory rate is 18/min patient on room air. Telemetry HEAD: Is atraumatic normocephalic. EYES: Pupils are equal round regular reactive to light and accommodation. Extraocular movements are normal. There is no conjunctival pallor. There is no scleral icterus. EARS: Tympanic membranes are intact. External auditory canals are clear. NOSE: There is no deviated nasal septum. There is no inflammation of the nasal mucous membrane. MOUTH: Mucous membranes of mouth are dry tongue is still dry. THROAT: There is no redness of the oropharynx. There is no exudates. 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 There is no catie-care ecchymosis. NECK: Supple. There is no JVD present. Carotids are equal there is no bruit. There is no lymphadenopathy. There is no goiter. There is no accessory muscle respiration use. Trachea central. LUNGS: Shows diminished air entry prolonged expiration there is bibasilar rales of CHF. There is no rhonchi or wheezing. There is no chest wall tenderness on palpation. On palpation there is hyperresonance. There is no bibasilar rales of heart failure. HEART: S1-S2 is heard. There is no S3 gallop. There is no S4 gallop there is systolic murmur left sternal border and the apex there is no rub. ABDOMEN: Soft. There is no hepatosplenomegaly. Bowel sounds are normal. There is no hepatosplenomegaly. EXTREMITIES: There is diminished bilateral femoral pulses with bruits. 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 He has bilateral femoral bruits present. Leg pulses are diminished. There is no pedal edema bilaterally. There is no DVT or cellulitis. There is no cyanosis or clubbing. MEDIA RELATIONS SPECIALIST: The patient is asleep, but when aroused/awaken he is oriented x3 with no focal deficits. PSYCHIATRIC: Patient is a patient judgment insight are intact his affect is normal, he is not agitated or anxious. His 24-hour intake is 1100 mL. Output is 1800 mL. Labs- All tests 24 hr 01/15/20 01/16/20 01/16/20 01:48 06:03 06:03 WBC 3.3 L 2.7 L RBC 3.37 L 3.25 L Hgb 10.8 L D 10.5 L Hct 30.4 L 29.6 L MCV 90 D 91 MCH 32.0 32.3 MCHC 35.5 35.4 RDW 14.9 H 15.1 H Plt Count 98 L 93 L Total Counted 100 Seg Neuts % (Manual) 70 Lymphocytes % (Manual) 12 L Monocytes % (Manual) 18 H Eosinophils % (Manual) 0 Basophils % (Manual) 0 Abs Neuts (Manual) 2.3 Abs Lymphs (Manual) 0.4 L Abs Monocytes (Manual) 0.6 Absolute Eos (Manual) 0.0 Abs Basophils (Manual) 0.0 Platelet Comment DECREASED Sodium 134.4 L Potassium 4.1 Chloride 101 Carbon Dioxide 25 Anion Gap 8 BUN 101 H Creatinine 1.69 H Est GFR ( Amer) 49 L Est GFR (MDRD) Non-Af 41 L Glucose 77 Calcium 7.7 L Total Bilirubin 0.8 Direct Bilirubin 0.6 H Neonat Total Bilirubin Not Reportable Neonat Direct Bilirubin Not Reportable Neonat Indirect Bili Not Reportable AST 34 ALT 36 Alkaline Phosphatase 198 H Total Protein 4.3 L Albumin 2.1 L Chest X-Ray 12/24/19 19:50 IMPRESSION: New right basilar airspace consolidative change, suspicious for pneumonia. Head CT 12/24/19 20:48 IMPRESSION: 1. No acute intracranial findings. 2. Senescent changes with chronic microvascular ischemia and old lacunar infarcts. Chest X-Ray 12/28/19 00:00 IMPRESSION: 1. New right pleural effusion since 12/24/2019, with worsening right pulmonary infiltrate, likely pneumonia. Chest X-Ray 12/29/19 00:00 IMPRESSION: Right internal jugular catheter as described. Improving right lower lobe pneumonia. GI Bleed Scan Nuclear Medicine 01/04/20 00:00 IMPRESSION: EVIDENCE OF ACTIVE GASTROINTESTINAL BLEEDING. POINT OF ORIGIN IS IN THE RIGHT UPPER QUADRANT. Chest X-Ray 01/05/20 06:00 IMPRESSION: Improved but persistent patchy right basilar airspace disease and trace effusion. Abdomen Ultrasound 01/07/20 00:00 IMPRESSION: NO ABDOMINAL AORTIC ANEURYSM. Abdomen/Pelvis CT 01/12/20 16:00 IMPRESSION: Wall thickening in the rectosigmoid consistent with colitis. There is an aortobifemoral graft which appears patent. However the left superficial femoral artery appears occluded in the visualized segments of the proximal thigh. Recommend correlation with CTA or arterial Doppler. This finding was discussed with Dr Alicia Brizuela @ 2003 Subcutaneous and intra-abdominal stranding which may reflect anasarca Renal cysts with marked atrophy of the left kidney Right basilar atelectasis and pleural effusion Additional chronic changes as above IMPRESSION/RECOMMENDATION: 1. 2 cm duodenal ulcer with bleeding site that was cauterized: The patient has not had any further diarrhea. There is no nausea or vomiting. But appetite is decreased. Seems that the bleeding is stopped. He has no further diarrhea. He has had 2 semisolid stools which are brown in color and not black and tarry. 2. Acute anemia: The patient's hemoglobin is stable at 10.5. Will recheck in the morning 3. Acute on chronic systolic heart failure.: This seems to be stated. We will continue the patient's Lasix, Coreg and Entresto with dopamine at 2.5 mcg/kg/min infusion. Continue midodrine 4. Acute nonoliguric renal failure. Patient with good urine output. Partly the BUN/creatinine secondary to patient's absorption of blood from his GI tract about the ligament of Treitz. The GFR is improved 5. Hypokalemia: The patient's potassium is normal after replacement. 6. Severe mitral regurgitation, and severe tricuspid regurgitation and severe pulmonary hypertension. 7. DIlated cardiomyopathy and ischemic cardiomyopathy with severely reduced LV ejection fraction. Willl continue the patient's Coreg and Entresto . 8.. COPD: At present no acute exacerbation. Continue treatment to Xopenex treatment 9. Coronary artery disease. History of old myocardial infarction and history of coronary bypass graft surgery. No anginal symptoms. Continue anti-CAD medication, as being down now. Due to her drop in blood pressure effect of nitrates this has been held. 10. History of hypertension: Blood pressure low now requiring pressors. 11. History of AICD: No firing of his AICD recently. 12. Peripheral vascular disease: History of past history of left femoropopliteal bypass surgery. Abdominal ultrasound shows no evidence of abdominal aortic aneurysm. Findings of the CT scan noted. There is no acute limb ischemia seen at present. 13 History of pancytopenia. Note that the platelets are coming up. 14. Tobacco abuse disorder. We will continue the patient on NicoDerm patch 15. History of facial skin cancer. The patient will be requiring radiation treatment as per Dr. Domingo, radiation oncologist in [place]. 16. Elevated digoxin level without any evidence of digitoxicity. We will discontinue the patient's digoxin. TBut in view of the patient's renal insufficiency will not reinstitute digoxin. 17. Hypotension: Blood pressure is low normal on a small dose of dopamine infusion. This is allow the patient to get his Coreg and Entresto. 18. DEPRESSION: Will continue patient's Prozac to 20 mg p.o. twice daily. Medications reviewed. Medical regimen management plan discussed with the patient's daughter. Medical decision making is of high complexity. 40 minutes spent with patient more than 50% of time spent in direct patient care.
[2020-01-16 22:03] LABS: APPEARANCE,URINE CLOUDY; BILIRUBIN,URINE NEGATIVE (NEGATIVE); COLOR,URINE YELLOW; GLUCOSE, URINE NEGATIVE (NEGATIVE); KETONES,URINE NEGATIVE (NEGATIVE); LEUKOCYTE ESTERASE,URINE LARGE (NEGATIVE); NITRITE,URINE NEGATIVE (NEGATIVE); PROTEIN,URINE NEGATIVE (NEGATIVE); URINE SPECIFIC GRAVITY 1.013; UROBILINOGEN,URINE NEGATIVE mg/dL (<2.0)
[2020-01-17] MEDS: ONDANSETRON HCL INJ/PF 4 MG/2 ML SDV IV PRN (00:14)
[2020-01-17] MEDS: PANTOPRAZOLE SODIUM 40 MG TABLET.DR PO SCH ×2 (06:00→16:14)
[2020-01-17] MEDS: LOPERAMIDE HCL 2 MG CAPSULE PO SCH ×3 (06:00→18:05)
[2020-01-17 06:20] LABS: HEMATOCRIT 33.6 % (37.9-51.0); HEMOGLOBIN 11.8 g/dL (13.5-17.0); MEAN CORPUSCULAR VOLUME 91 fl (80-97); PLATELET COUNT 115 10^3/uL (150-450); RED BLOOD COUNT 3.68 10^6/uL (4.35-5.55); RED CELL DISTRIBUTION WIDTH 15.3 % (11.5-14.0); WHITE BLOOD COUNT 2.9 10^3/uL (4.0-10.5)
[2020-01-17] MEDS: FLUTICASONE/UMECLIDIN/VILANTER 100-62.5-25 MCG/DOSE IH SCH (10:30)
[2020-01-17] MEDS: FLUOXETINE HCL 20 MG CAPSULE PO SCH ×2 (10:32→22:15)
[2020-01-17] MEDS: MIDODRINE HCL 5 MG TABLET PO SCH ×3 (10:32→18:05)
[2020-01-17] MEDS: MULTIVITS W-MIN/IRON SOLN 60 ML PO SCH (10:33)
[2020-01-17] MEDS: ENOXAPARIN SODIUM INJ 40 MG/0.4 ML DISP.SYRIN SUBCUT SCH (10:42)
[2020-01-17] MEDS: NICOTINE 14 MG/24 HR PATCH.TD24 TD SCH (10:43)
--- NOTE | 2020-01-17 14:25 | Progress Note ---
Provider Note Provider Note: Cardiology PROGRESS NOTE by Dr. Alicia Brizuela on 01/17/2020. SUBJECTIVE: He complains of generalized fatigue and weakness. There is no further hematochezia or melena. He denies any abdominal pain. Denies any chest pain discomfort. He has no PND orthopnea or leg edema. He has no arrhythmias seen on the monitor. His hemoglobin is stable 11.8. The problem is getting his blood pressure to maintain in normal range without dopamine. As soon as the dopamine is decreased to 2.5 mcg/kg per minute the patient's blood pressure drops and the patient complains of fatigue and weakness. His random cortisol level is only 14.40. Hence we will start the patient on steroid and also give him some mineralocorticoid. PHYSICAL EXAMINATION: The patient appears to be chronically ill malnourished and opacity emaciated. Selected Entries 01/17/20 01/17/20 01/17/20 17:30 18:00 18:34 Pulse Rate 72 66 Blood Pressure 130/63 H 86/51 L Blood Pressure 62 Mean Respirations 18/min. Patient on room air O2 Sat by Pulse 96 Oximetry by Telemetry 01/17/20 18:58 Pulse Rate 72 Blood Pressure 115/61 Blood Pressure Mean O2 Sat by Pulse Oximetry by Telemetry HEAD: Is atraumatic normocephalic. EYES: Pupils are equal round regular reactive to light and accommodation. Extraocular movements are normal. There is no conjunctival pallor. There is no scleral icterus. EARS: Tympanic membranes are intact. External auditory canals are clear. NOSE: There is no deviated nasal septum. There is no inflammation of the nasal mucous membrane. MOUTH: Mucous membranes of mouth are dry tongue is still dry. THROAT: There is no redness of the oropharynx. There is no exudates. 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 There is no catie-care ecchymosis. NECK: Supple. There is no JVD present. Carotids are equal there is no bruit. There is no lymphadenopathy. There is no goiter. There is no accessory muscle respiration use. Trachea central. LUNGS: Shows diminished air entry prolonged expiration there is bibasilar rales of CHF. There is no rhonchi or wheezing. There is no chest wall tenderness on palpation. On palpation there is hyperresonance. There is no bibasilar rales of heart failure. HEART: S1-S2 is heard. There is no S3 gallop. There is no S4 gallop there is systolic murmur left sternal border and the apex there is no rub. ABDOMEN: Soft. There is no hepatosplenomegaly. Bowel sounds are normal. There is no hepatosplenomegaly. EXTREMITIES: There is diminished bilateral femoral pulses with bruits. There is a scar in the left lower extremity from his left femoral-popliteal bypass surge ry. He has bilateral femoral bruits present. Leg pulses are diminished. There is no pedal edema bilaterally. There is no DVT or cellulitis. There is no cyanosis or clubbing. REPLENISHER: The patient is asleep, but when aroused/awaken he is oriented x3 with no focal deficits. PSYCHIATRIC: Patient is a patient judgment insight are intact his affect is normal, he is not agitated or anxious. His 24-hour intake is 875mL. Output is 1350 mL. Labs- All tests 24 hr 01/16/20 01/17/20 01/17/20 21:00 05:40 14:20 WBC 2.9 L RBC 3.68 L Hgb 11.8 L Hct 33.6 L MCV 91 MCH 32.0 MCHC 35.0 RDW 15.3 H Plt Count 115 L Random Cortisol 14.40 Urine Color YELLOW Urine Appearance CLOUDY Urine pH 5.0 Ur Specific [place] 1.013 Urine Protein NEGATIVE Urine Glucose (UA) NEGATIVE Urine Ketones NEGATIVE Urine Blood MODERATE H Urine Nitrite NEGATIVE Urine Bilirubin NEGATIVE Urine Urobilinogen NEGATIVE Ur Leukocyte Esterase LARGE H Urine WBC (Auto) >182 Urine RBC (Auto) 18 U Hyaline Cast (Auto) 8 Urine WBC Clumps MANY Squamous Epi Cells Auto <1 U Non-Squamous Epis Auto 3 Urine Mucus (Auto) RARE Urine Ascorbic Acid NEGATIVE Chest X-Ray 12/24/19 19:50 IMPRESSION: New right basilar airspace consolidative change, suspicious for pneumonia. Head CT 12/24/19 20:48 IMPRESSION: 1. No acute intracranial findings. 2. Senescent changes with chronic microvascular ischemia and old lacunar infarcts. Chest X-Ray 12/28/19 00:00 IMPRESSION: 1. New right pleural effusion since 12/24/2019, with worsening right pulmonary infiltrate, likely pneumonia. Chest X-Ray 12/29/19 00:00 IMPRESSION: Right internal jugular catheter as described. Improving right lower lobe pneumonia. GI Bleed Scan Nuclear Medicine 01/04/20 00:00 IMPRESSION: EVIDENCE OF ACTIVE GASTROINTESTINAL BLEEDING. POINT OF ORIGIN IS IN THE RIGHT UPPER QUADRANT. Chest X-Ray 01/05/20 06:00 IMPRESSION: Improved but persistent patchy right basilar airspace disease and trace effusion. Abdomen Ultrasound 01/07/20 00:00 IMPRESSION: NO ABDOMINAL AORTIC ANEURYSM. Abdomen/Pelvis CT 01/12/20 16:00 IMPRESSION: Wall thickening in the rectosigmoid consistent with colitis. There is an aortobifemoral graft which appears patent. However the left superficial femoral artery appears occluded in the visualized segments of the proximal thigh. Recommend correlation with CTA or arterial Doppler. This finding was discussed with Dr Alicia Brizuela @ 2003 Subcutaneous and intra-abdominal stranding which may reflect anasarca Renal cysts with marked atrophy of the left kidney Right basilar atelectasis and pleural effusion Additional chronic changes as above IMPRESSION/RECOMMENDATION: 1. 2 cm duodenal ulcer with bleeding site that was cauterized: The patient has not had any further diarrhea. There is no nausea or vomiting. But appetite is decreased. Seems that the bleeding is stopped. He has no further diarrhea. He has had 2 semisolid stools which are brown in color and not black and tarry. 2. Acute anemia: The patient's hemoglobin is stable at 11.8. Will recheck in the morning 3. Acute on chronic systolic heart failure.: This seems to be stated. We will continue to hold the patient's Lasix, Coreg and Entresto and continue dopamine at 5 mcg/kg/min infusion. Continue midodrine 4. Acute nonoliguric renal failure. Patient with good urine output. Partly the BUN/creatinine secondary to patient's absorption of blood from his GI tract about the ligament of Treitz. The GFR is improved 5. Hypotension. Patient still requiring 5 mcg/kg/min infusion of dopamine. The patient's random cortisol level is low. Hence we will start the patient was Solu-Cortef intravenously. We will also add a small dose of Florinef. We will see if this can get the patient to be weaned off dopamine. 6. Severe mitral regurgitation, and severe tricuspid regurgitation and severe pulmonary hypertension. 7. DIlated cardiomyopathy and ischemic cardiomyopathy with severely reduced LV ejection fraction. Willl continue the patient's Coreg and Entresto . 8.. COPD: At present no acute exacerbation. Continue treatment to Xopenex treatment 9. Coronary artery disease. History of old myocardial infarction and history of coronary bypass graft surgery. No anginal symptoms. Continue anti-CAD medication, as being down now. Due to her drop in blood pressure effect of nitrates this has been held. 10. History of hypertension: Blood pressure low now requiring pressors. 11. History of AICD: No firing of his AICD recently. 12. Peripheral vascular disease: History of past history of left femoropop liteal bypass surgery. Abdominal ultrasound shows no evidence of abdominal aortic aneurysm. Findings of the CT scan noted. There is no acute limb ischemia seen at present. 13 History of pancytopenia. Note that the platelets are coming up. 14. Tobacco abuse disorder. We will continue the patient on NicoDerm patch 15. History of facial skin cancer. The patient will be requiring radiation joy atment as per Dr. Domingo, radiation oncologist in [place]. 16. Elevated digoxin level without any evidence of digitoxicity. We will discontinue the patient's digoxin. TBut in view of the patient's renal insufficiency will not reinstitute digoxin. 17. Hypotension: Blood pressure is low normal on a small dose of dopamine infusion. This is allow the patient to get his Coreg and Entresto. 18. DEPRESSION: Will continue patient's Prozac to 20 mg p.o. twice daily. Medications reviewed. Medical regimen management plan discussed with the patient's daughter. Medical decision making is of high complexity. 40 minutes spent with patient more than 50% of time spent in direct patient care.
[2020-01-17] MEDS: FUROSEMIDE INJ/PF 20 MG/2 ML SDV IV SCH ×2 (14:39→22:15)
[2020-01-17] MEDS: CARVEDILOL 6.25 MG TABLET PO SCH ×2 (14:39→22:15)
[2020-01-17] MEDS: SACUBITRIL/VALSARTAN 49 MG/51 MG TABLET PO SCH ×2 (14:39→22:15)
[2020-01-17] MEDS ORDERED: HYDROCORTISONE SOD SUCCINATE INJ/PF 100 MG/2 ML SDV IV SCH ×2 (16:15→22:00)
[2020-01-17] MEDS ORDERED: FLUDROCORTISONE ACETATE 0.1 MG TABLET PO ONE (19:15)
[2020-01-17] MEDS: HYDROCORTISONE SOD SUCCINATE INJ/PF 100 MG/2 ML SDV IV SCH (22:15)
[2020-01-17] MEDS ORDERED: FLUDROCORTISONE ACETATE 0.1 MG TABLET ONE (23:34)
[2020-01-18 06:36] LABS: ABSOLUTE LYMPHOCYTES (AUTO) 0.2 10^3/uL (0.5-4.7); ABSOLUTE MONOCYTES (AUTO) 0.2 10^3/uL (0.1-1.4); ABSOLUTE NEUT (AUTO) 2.1 10^3/uL (1.7-8.2); BASOPHILS % (AUTO) 0.3 % (0-2); EOSINOPHILS % (AUTO) 0.1 % (0-6); HEMATOCRIT 30.6 % (37.9-51.0); HEMOGLOBIN 10.5 g/dL (13.5-17.0); LYMPHOCYTES % (AUTO) 7.6 % (13-45); MEAN CORPUSCULAR HGB CONC 34.4 g/dL (32.0-36.0); MEAN CORPUSCULAR VOLUME 93 fl (80-97); MONOCYTES % (AUTO) 9.1 % (3-13); PLATELET COUNT 111 10^3/uL (150-450); RED BLOOD COUNT 3.29 10^6/uL (4.35-5.55); RED CELL DISTRIBUTION WIDTH 15.2 % (11.5-14.0); SEGMENTED NEUTROPHILS % (AUTO) 82.9 % (42-78); TOTAL CELLS COUNTED % (AUTO) 100 %; WHITE BLOOD COUNT 2.5 10^3/uL (4.0-10.5)
[2020-01-18] MEDS: HYDROCORTISONE SOD SUCCINATE INJ/PF 100 MG/2 ML SDV IV SCH ×2 (06:40→15:09)
[2020-01-18] MEDS: PANTOPRAZOLE SODIUM 40 MG TABLET.DR PO SCH ×2 (06:41→17:02)
[2020-01-18] MEDS: LOPERAMIDE HCL 2 MG CAPSULE PO SCH ×2 (06:41)
[2020-01-18] MEDS: DOPAMINE HCL/DEXTROSE 5%-WATER 800 MG/250 ML RTUINJ IV PRN (06:42)
[2020-01-18 07:35] LABS: ALBUMIN 2.1 g/dL (3.5-5.0); ALKALINE PHOSPHATASE 245 U/L (38-126); ANION GAP 8 (5-19); ASPARTATE AMINO TRANSFERASE 35 U/L (17-59); BILIRUBIN,DIRECT 0.6 mg/dL (0.0-0.4); BILIRUBIN,TOTAL 0.7 mg/dL (0.2-1.3); BLOOD UREA NITROGEN 93 mg/dL (7-20); CALCIUM 8.1 mg/dL (8.4-10.2); CARBON DIOXIDE 24 mmol/L (22-30); CHLORIDE 101 mmol/L (98-107); GLUCOSE 135 mg/dL (75-110); POTASSIUM 4.4 mmol/L (3.6-5.0); TOTAL PROTEIN 4.5 g/dL (6.3-8.2)
[2020-01-18] MEDS: MULTIVITS W-MIN/IRON SOLN 60 ML PO SCH (09:59)
[2020-01-18] MEDS: NICOTINE 14 MG/24 HR PATCH.TD24 TD SCH (10:38)
[2020-01-18] MEDS: FLUOXETINE HCL 20 MG CAPSULE PO SCH ×2 (10:39→21:32)
[2020-01-18] MEDS: MIDODRINE HCL 5 MG TABLET PO SCH ×3 (10:40→17:02)
[2020-01-18] MEDS: FLUTICASONE/UMECLIDIN/VILANTER 100-62.5-25 MCG/DOSE IH SCH (10:40)
[2020-01-18] MEDS: ENOXAPARIN SODIUM INJ 40 MG/0.4 ML DISP.SYRIN SUBCUT SCH (10:42)
--- NOTE | 2020-01-18 12:18 | Progress Note ---
Provider Note Provider Note: CARDIOLOGY PROGRESS NOTE by Dr. Jay Schmitt on 01/18/2020. OBJECTIVE: The patient states he feels stronger today. But still is in bed and has not gotten out of his bed. He is he has less amount of dizziness when he sits up in the bed. He denies any chest pain or discomfort. There is no PND orthopnea or leg edema. There is no arrhythmias seen on the monitor. The patient has no further diarrhea and there is no black tarry stools. His hemoglobin is stable at 10.5. There is no firing of his AICD. PHYSICAL EXAMINATION: The patient appears to be chronically ill and malnourished. He is emaciated. VITALS: The patient is afebrile. His respirations 18/min O2 sats are 98% on room air. His pulse is 66 bpm blood pressure is 128/68. HEAD: Is atraumatic normocephalic. EYES: Pupils are equal round regular reactive to light and accommodation. Extraocular movements are normal. There is no conjunctival pallor. There is no scleral icterus. EARS: Tympanic membranes are intact. External auditory canals are clear. NOSE: There is no deviated nasal septum. There is no inflammation of the nasal mucous membrane. MOUTH: Mucous membranes of mouth are dry tongue is still dry. THROAT: There is no redness of the oropharynx. There is no exudates. 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 There is no catie-care ecchymosis. NECK: Supple. There is no JVD present. Carotids are equal there is no bruit. There is no lymphadenopathy. There is no goiter. There is no accessory muscle respiration use. Trachea central. LUNGS: Shows diminished air entry prolonged expiration there is bibasilar rales of CHF. There is no rhonchi or wheezing. There is no chest wall tenderness on palpation. On palpation there is hyperresonance. There is no bibasilar rales of heart failure. HEART: S1-S2 is heard. There is no S3 gallop. There is no S4 gallop there is systolic murmur left sternal border and the apex there is no rub. ABDOMEN: Soft. There is no hepatosplenomegaly. Bowel sounds are normal. There is no hepatosplenomegaly. EXTREMITIES: There is diminished bilateral femoral pulses with bruits. 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 He has bilateral femoral bruits present. Leg pulses are diminished. There is no pedal edema bilaterally. There is no DVT or cellulitis. There is no cyanosis or clubbing. INFRASTRUCTURE CONSULTANT: The patient is asleep, but when aroused/awaken he is oriented x3 with no focal deficits. PSYCHIATRIC: Patient is a patient judgment insight are intact his affect is normal, he is not agitated or anxious. His 24-hour intake is 1102mL. Output is 1525 mL. Labs- All tests 24 hr 01/18/20 01/18/20 06:10 06:10 WBC 2.5 L RBC 3.29 L Hgb 10.5 L Hct 30.6 L MCV 93 MCH 32.0 MCHC 34.4 RDW 15.2 H Plt Count 111 L Lymph % (Auto) 7.6 L [place] % (Auto) 9.1 Eos % (Auto) 0.1 Baso % (Auto) 0.3 Absolute Neuts (auto) 2.1 Absolute Lymphs (auto) 0.2 L Absolute Monos (auto) 0.2 Absolute Eos (auto) 0.0 Absolute Basos (auto) 0.0 Seg Neutrophils % 82.9 H Sodium 133.1 L Potassium 4.4 Chloride 101 Carbon Dioxide 24 Anion Gap 8 BUN 93 H Creatinine 1.54 H Est GFR ( Amer) 55 L Est GFR (MDRD) Non-Af 45 L Glucose 135 H Calcium 8.1 L Total Bilirubin 0.7 Direct Bilirubin 0.6 H Neonat Total Bilirubin Not Reportable Neonat Direct Bilirubin Not Reportable Neonat Indirect Bili Not Reportable AST 35 ALT 34 Alkaline Phosphatase 245 H Total Protein 4.5 L Albumin 2.1 L Chest X-Ray 12/24/19 19:50 IMPRESSION: New right basilar airspace consolidative change, suspicious for pneumonia. Head CT 12/24/19 20:48 IMPRESSION: 1. No acute intracranial findings. 2. Senescent changes with chronic microvascular ischemia and old lacunar infarcts. Chest X-Ray 12/28/19 00:00 IMPRESSION: 1. New right pleural effusion since 12/24/2019, with worsening right pulmonary infiltrate, likely pneumonia. Chest X-Ray 12/29/19 00:00 IMPRESSION: Right internal jugular catheter as described. Improving right lower lobe pneumonia. GI Bleed Scan Nuclear Medicine 01/04/20 00:00 IMPRESSION: EVIDENCE OF ACTIVE GASTROINTESTINAL BLEEDING. POINT OF ORIGIN IS IN THE RIGHT UPPER QUADRANT. Chest X-Ray 01/05/20 06:00 IMPRESSION: Improved but persistent patchy right basilar airspace disease and trace effusion. Abdomen Ultrasound 01/07/20 00:00 IMPRESSION: NO ABDOMINAL AORTIC ANEURYSM. Abdomen/Pelvis CT 01/12/20 16:00 IMPRESSION: Wall thickening in the rectosigmoid consistent with colitis. There is an aortobifemoral graft which appears patent. However the left superficial femoral artery appears occluded in the visualized segments of the proximal thigh. Recommend correlation with CTA or arterial Doppler. This finding was discussed with Dr Alicia Brizuela @ 2003 Subcutaneous and intra-abdominal stranding which may reflect anasarca Renal cysts with marked atrophy of the left kidney Right basilar atelectasis and pleural effusion Additional chronic changes as above IIMPRESSION/RECOMMENDATION: 1. 2 cm duodenal ulcer with bleeding site that was cauterized: The patient has not had any further diarrhea. There is no nausea or vomiting. But appetite is decreased. Seems that the bleeding is stopped. He has no further diarrhea. He has had 2 semisolid stools which are brown in color and not black and tarry. 2. Acute anemia: The patient's hemoglobin is stable at 11.8. Will recheck in the morning 3. Acute on chronic systolic heart failure.: This seems to be stated. We will continue to hold the patient's Lasix, Coreg and Entresto and continue dopamine at 5 mcg/kg/min infusion. Continue midodrine 4. Acute nonoliguric renal failure. Patient with good urine output. Partly the BUN/creatinine secondary to patient's absorption of blood from his GI tract about the ligament of Treitz. The GFR is improved 5. Hypotension. Patient still requiring 2.5 mcg/kg/min infusion of dopamine. We will gently hydrate the patient try to wean the patient off dopamine at 2.5 mcg/kg/min. Will discontinue the patient's IV Solu-Cortef and the p.o. Florinef, since the patient did get he gets at least 4 doses up to now. 6. Severe mitral regurgitation, and severe tricuspid regurgitation and severe pulmonary hypertension. 7. DIlated cardiomyopathy and ischemic cardiomyopathy with severely reduced LV ejection fraction. Willl: The patient is at rest on Coreg and restart later on. 8.. COPD: At present no acute exacerbation. Continue treatment to Xopenex treatment 9. Coronary artery disease. History of old myocardial infarction and history of coronary bypass graft surgery. No anginal symptoms. Continue anti-CAD medication, as being down now. Due to her drop in blood pressure effect of nitrates this has been held. 10. History of hypertension: Blood pressure has improved we will give the patient gentle fluid resuscitation and stop the patient's dopamine. Also will stop the patient's steroids and Florinef. 11. History of AICD: No firing of his AICD recently. 12. Peripheral vascular disease: History of past history of left femoropopliteal bypass surgery. Abdominal ultrasound shows no evidence of abdominal aortic aneurysm. Findings of the CT scan noted. There is no acute limb ischemia seen at present. 13 History of pancytopenia. Note that the platelets are coming up. 14. Tobacco abuse disorder. We will continue the patient on NicoDerm patch 15. History of facial skin cancer. The patient will be requiring radiation treatment as per Dr. Domingo, radiation oncologist in [place]. 16. Elevated digoxin level without any evidence of digitoxicity. We will discontinue the patient's digoxin. TBut in view of the patient's renal insufficiency will not reinstitute digoxin. 17. Hypotension: Blood pressure is low normal on a small dose of dopamine infusion. This is allow the patient to get his Coreg and Entresto. 18. DEPRESSION: Will continue patient's Prozac to 20 mg p.o. twice daily. Medications reviewed. Medical regimen management plan discussed with the patient's daughter. Medical decision making is of high complexity. 40 minutes spent with patient more than 50% of time spent in direct patient care.
[2020-01-18] MEDS: FUROSEMIDE INJ/PF 20 MG/2 ML SDV IV SCH (15:18)
[2020-01-18] MEDS: SACUBITRIL/VALSARTAN 49 MG/51 MG TABLET PO SCH ×2 (15:18→21:33)
[2020-01-18] MEDS: CARVEDILOL 6.25 MG TABLET PO SCH ×2 (15:18→21:32)
[2020-01-18] MEDS: RINGERS SOLUTION,LACTATED 500 ML IV PRN (15:36)
[2020-01-18] MEDS ORDERED: FLUDROCORTISONE ACETATE 0.1 MG TABLET PO SCH (18:00)
[2020-01-19] MEDS: PANTOPRAZOLE SODIUM 40 MG TABLET.DR PO SCH ×2 (05:18→16:58)
[2020-01-19 08:04] LABS: HEMATOCRIT 27.5 % (37.9-51.0); HEMOGLOBIN 9.5 g/dL (13.5-17.0); MEAN CORPUSCULAR HGB CONC 34.5 g/dL (32.0-36.0); MEAN CORPUSCULAR VOLUME 93 fl (80-97); PLATELET COUNT 120 10^3/uL (150-450); RED BLOOD COUNT 2.97 10^6/uL (4.35-5.55); RED CELL DISTRIBUTION WIDTH 15.1 % (11.5-14.0)
[2020-01-19 08:05] LABS: APPEARANCE,URINE SLIGHTLY-CLOUDY; BILIRUBIN,URINE NEGATIVE (NEGATIVE); COLOR,URINE YELLOW; GLUCOSE, URINE NEGATIVE (NEGATIVE); KETONES,URINE NEGATIVE (NEGATIVE); LEUKOCYTE ESTERASE,URINE LARGE (NEGATIVE); NITRITE,URINE NEGATIVE (NEGATIVE); PROTEIN,URINE NEGATIVE (NEGATIVE); URINE SPECIFIC GRAVITY 1.016
[2020-01-19] MEDS ORDERED: ENOXAPARIN SODIUM INJ 40 MG/0.4 ML DISP.SYRIN SUBCUT SCH (10:00)
[2020-01-19] MEDS: MULTIVITS W-MIN/IRON SOLN 60 ML PO SCH (10:59)
[2020-01-19] MEDS: FLUOXETINE HCL 20 MG CAPSULE PO SCH ×2 (10:59→21:30)
[2020-01-19] MEDS: FUROSEMIDE 20 MG TABLET PO SCH (10:59)
[2020-01-19] MEDS: SACUBITRIL/VALSARTAN 49 MG/51 MG TABLET PO SCH ×2 (10:59→21:28)
[2020-01-19] MEDS: CARVEDILOL 6.25 MG TABLET PO SCH ×2 (10:59→21:30)
[2020-01-19] MEDS: MIDODRINE HCL 5 MG TABLET PO SCH ×3 (10:59→19:32)
[2020-01-19] MEDS: NICOTINE 14 MG/24 HR PATCH.TD24 TD SCH (11:01)
[2020-01-19] MEDS: FLUTICASONE/UMECLIDIN/VILANTER 100-62.5-25 MCG/DOSE IH SCH (11:01)
--- NOTE | 2020-01-19 14:35 | Progress Note ---
Provider Note Provider Note: CARDIOLOGY PROGRESS NOTE by Dr. Alicia Brizuela on 01/19/2020 SUBJECTIVE: The patient states he feels better and stronger after IV fluids. Still has some dizziness when he sits up and when he stands up there is definite postural hypotension. He denies any chest pain or discomfort. There is no further abdominal pain or diarrhea. He has no anginal symptoms. There is no PND orthopnea or leg edema. There is no arrhythmias on his monitor. There is no firing of his AICD. He still feels generalized weakness. PHYSICAL EXAMINATION: Patient appears to be chronically ill and malnourished. He is emaciated. Selected Entries 01/19/20 01/19/20 10:04 10:12 Pulse Rate 60 59 L Blood Pressure 109/62 Blood Pressure 77 Mean O2 sats are 98% on room air. Respiratory rate is 18/min HEAD: Is atraumatic normocephalic. EYES: Pupils are equal round regular reactive to light and accommodation. Extraocular movements are normal. There is no conjunctival pallor. There is no scleral icterus. EARS: Tympanic membranes are intact. External auditory canals are clear. NOSE: There is no deviated nasal septum. There is no inflammation of the nasal mucous membrane. MOUTH: Mucous membranes of mouth are dry tongue is still dry. THROAT: There is no redness of the oropharynx. There is no exudates. 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 There is no catie-care ecchymosis. NECK: Supple. There is no JVD present. Carotids are equal there is no bruit. There is no lymphadenopathy. There is no goiter. There is no accessory muscle respiration use. Trachea central. LUNGS: Shows diminished air entry prolonged expiration there is bibasilar rales of CHF. There is no rhonchi or wheezing. There is no chest wall tenderness on palpation. On palpation there is hyperresonance. There is no bibasilar rales of heart failure. HEART: S1-S2 is heard. There is no S3 gallop. There is no S4 gallop there is systolic murmur left sternal border and the apex there is no rub. ABDOMEN: Soft. There is no hepatosplenomegaly. Bowel sounds are normal. There is no hepatosplenomegaly. EXTREMITIES: There is diminished bilateral femoral pulses with bruits. 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 He has bilateral femoral bruits present. Leg pulses are diminished. There is no pedal edema bilaterally. There is no DVT or cellulitis. There is no cyanosis or clubbing. 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 PSYCHIATRIC: Patient is a patient judgment insight are intact his affect is normal, he is not agitated or anxious. His 24-hour intake is 1953mL. Output is 800 mL. Labs- All tests 24 hr 01/19/20 01/19/20 01/19/20 06:15 06:27 19:32 WBC 3.0 L RBC 2.97 L Hgb 9.5 L Hct 27.5 L MCV 93 MCH 32.0 MCHC 34.5 RDW 15.1 H Plt Count 120 L Urine Color YELLOW Urine Appearance SLIGHTLY-CLOUDY Urine pH 5.0 Ur Specific [place] 1.016 Urine Protein NEGATIVE Urine Glucose (UA) NEGATIVE Urine Ketones NEGATIVE Urine Blood SMALL H Urine Nitrite NEGATIVE Urine Bilirubin NEGATIVE Urine Urobilinogen 2.0 H Ur Leukocyte Esterase LARGE H Urine WBC (Auto) 96 Urine RBC (Auto) 3 Urine Bacteria (Auto) TRACE Urine Mucus (Auto) RARE Urine Ascorbic Acid NEGATIVE Stool Occult Blood POSITIVE Chest X-Ray 12/24/19 19:50 IMPRESSION: New right basilar airspace consolidative change, suspicious for pneumonia. Head CT 12/24/19 20:48 IMPRESSION: 1. No acute intracranial findings. 2. Senescent changes with chronic microvascular ischemia and old lacunar infarcts. Chest X-Ray 12/28/19 00:00 IMPRESSION: 1. New right pleural effusion since 12/24/2019, with worsening right pulmonary infiltrate, likely pneumonia. Chest X-Ray 12/29/19 00:00 IMPRESSION: Right internal jugular catheter as described. Improving right lower lobe pneumonia. GI Bleed Scan Nuclear Medicine 01/04/20 00:00 IMPRESSION: EVIDENCE OF ACTIVE GASTROINTESTINAL BLEEDING. POINT OF ORIGIN IS IN THE RIGHT UPPER QUADRANT. Chest X-Ray 01/05/20 06:00 IMPRESSION: Improved but persistent patchy right basilar airspace disease and trace effusion. Abdomen Ultrasound 01/07/20 00:00 IMPRESSION: NO ABDOMINAL AORTIC ANEURYSM. Abdomen/Pelvis CT 01/12/20 16:00 IMPRESSION: Wall thickening in the rectosigmoid consistent with colitis. There is an aortobifemoral graft which appears patent. However the left superficial femoral artery appears occluded in the visualized segments of the proximal thigh. Recommend correlation with CTA or arterial Doppler. This finding was discussed with Dr Alicia Brizuela @ 2003 Subcutaneous and intra-abdominal stranding which may reflect anasarca Renal cysts with marked atrophy of the left kidney Right basilar atelectasis and pleural effusion Additional chronic changes as above IIMPRESSION/RECOMMENDATION: 1. 2 cm duodenal ulcer with bleeding site that was cauterized: The patient has not had any further diarrhea. There is no nausea or vomiting. But appetite is decreased. Seems that the bleeding is stopped. He has no further diarrhea. He has had 2 semisolid stools which are brown in color and not black and tarry. 2. Acute anemia: The patient's hemoglobin is stable at 11.8. Will recheck in the morning 3. Acute on chronic systolic heart failure.: This seems to be stated. We will continue to hold the patient's Lasix, Coreg and Entresto and continue dopamine at 5 mcg/kg/min infusion. Continue midodrine 4. Acute nonoliguric renal failure. Patient with good urine output. Partly the BUN/creatinine secondary to patient's absorption of blood from his GI tract about the ligament of Treitz. The GFR is improved 5. Hypotension. Patient still requiring 2.5 mcg/kg/min infusion of dopamine. We will gently hydrate the patient try to wean the patient off dopamine at 2.5 mcg/kg/min. Will discontinue the patient's IV Solu-Cortef and the p.o. Florinef, since the patient did get he gets at least 4 doses up to now. 6. Severe mitral regurgitation, and severe tricuspid regurgitation and severe pulmonary hypertension. 7. DIlated cardiomyopathy and ischemic cardiomyopathy with severely reduced LV ejection fraction. Willl: The patient is at rest on Coreg and restart later on. 8.. COPD: At present no acute exacerbation. Continue treatment to Xopenex treatment 9. Coronary artery disease. History of old myocardial infarction and history of coronary bypass graft surgery. No anginal symptoms. Continue anti-CAD medication, as being down now. Due to her drop in blood pressure effect of nitrates this has been held. 10. History of hypertension: Blood pressure has improved we will give the patient gentle fluid resuscitation and stop the patient's dopamine. Also will stop the patient's steroids and Florinef. 11. History of AICD: No firing of his AICD recently. 12. Peripheral vascular disease: History of past history of left femoropopliteal bypass surgery. Abdominal ultrasound shows no evidence of abdominal aortic aneurysm. Findings of the CT scan noted. There is no acute li mb ischemia seen at present. 13 History of pancytopenia. Note that the platelets are coming up. 14. Tobacco abuse disorder. We will continue the patient on NicoDerm patch 15. History of facial skin cancer. The patient will be requiring radiation treatment as per Dr. Domingo, radiation oncologist in [place]. 16. Elevated digoxin level without any evidence of digitoxicity. We will discontinue the patient's digoxin. TBut in view of the patient's renal insufficiency will not reinstitute digoxin. 17. Hypotension: Blood pressure is low normal on a small dose of dopamine infusion. This is allow the patient to get his Coreg and Entresto. 18. DEPRESSION: Will continue patient's Prozac to 20 mg p.o. twice daily. Medications reviewed. Medical regimen management plan discussed with the tej ceja's daughter. Medical decision making is of high complexity. 40 minutes spent with patient more than 50% of time spent in direct patient care.
[2020-01-19] MEDS ORDERED: RINGERS SOLUTION,LACTATED 500 ML IV PRN (15:58)
[2020-01-19] MEDS: RINGERS SOLUTION,LACTATED 500 ML IV PRN (16:58)
[2020-01-20] MEDS: PANTOPRAZOLE SODIUM 40 MG TABLET.DR PO SCH ×2 (06:04→17:36)
[2020-01-20 06:47] LABS: HEMATOCRIT 26.9 % (37.9-51.0); HEMOGLOBIN 9.5 g/dL (13.5-17.0); MEAN CORPUSCULAR HEMOGLOBIN 32.6 pg (27.0-33.4); MEAN CORPUSCULAR HGB CONC 35.3 g/dL (32.0-36.0); MEAN CORPUSCULAR VOLUME 92 fl (80-97); PLATELET COUNT 116 10^3/uL (150-450); RED BLOOD COUNT 2.91 10^6/uL (4.35-5.55); RED CELL DISTRIBUTION WIDTH 15.1 % (11.5-14.0); WHITE BLOOD COUNT 2.9 10^3/uL (4.0-10.5)
[2020-01-20 09:21] LABS: BLOOD UREA NITROGEN 81 mg/dL (7-20); CALCIUM 7.8 mg/dL (8.4-10.2); CARBON DIOXIDE 27 mmol/L (22-30); CHLORIDE 100 mmol/L (98-107); GLUCOSE 96 mg/dL (75-110); POTASSIUM 4.2 mmol/L (3.6-5.0)
[2020-01-20 09:30] LABS: ANION GAP 3 (5-19)
[2020-01-20] MEDS: NICOTINE 14 MG/24 HR PATCH.TD24 TD SCH (10:52)
[2020-01-20] MEDS: MULTIVITS W-MIN/IRON SOLN 60 ML PO SCH (10:52)
[2020-01-20] MEDS: CARVEDILOL 6.25 MG TABLET PO SCH ×2 (10:56→22:45)
[2020-01-20] MEDS: SACUBITRIL/VALSARTAN 49 MG/51 MG TABLET PO SCH ×2 (10:56→22:45)
[2020-01-20] MEDS: MIDODRINE HCL 5 MG TABLET PO SCH ×3 (10:56→17:36)
[2020-01-20] MEDS: FUROSEMIDE 20 MG TABLET PO SCH (10:56)
[2020-01-20] MEDS: FLUOXETINE HCL 20 MG CAPSULE PO SCH ×2 (10:56→22:45)
[2020-01-20] MEDS: ENOXAPARIN SODIUM INJ 30 MG/0.3 ML DISP.SYRIN SUBCUT SCH (10:57)
[2020-01-20] MEDS: FLUTICASONE/UMECLIDIN/VILANTER 100-62.5-25 MCG/DOSE IH SCH (10:57)
--- NOTE | 2020-01-20 15:13 | Progress Note ---
Provider Note Provider Note: CARDIOLOGY PROGRESS NOTE by Dr. Alicia Brizuela on 01/20/2020. SUBJECTIVE: Patient states he feels a little better. He had 2 bouts of small amounts of diarrhea. His stool occult blood was positive yesterday but his hemoglobin is remained stable. He received gentle IV hydration without going into heart failure. There is no chest pain or discomfort. There is no abdominal pain. There is no shortness of breath PND orthopnea leg edema. There is no arrhythmias seen on the monitor. There is no firing of AICD. PHYSICAL EXAMINATION: The patient appears to be chronically ill and malnourished. He is emaciated. But in spite of this no acute distress. Selected Entries 01/20/20 01/20/20 11:49 15:27 Pulse Rate 59 L Respiratory 17 Rate Blood Pressure 102/51 L Blood Pressure 68 Mean O2 Sat by Pulse 97 95 Oximetry Oxygen Delivery Room Air Method HEAD: Is atraumatic normocephalic. EYES: Pupils are equal round regular reactive to light and accommodation. Extraocular movements are normal. There is no conjunctival pallor. There is no scleral icterus. EARS: Tympanic membranes are intact. External auditory canals are clear. NOSE: There is no deviated nasal septum. There is no inflammation of the nasal mucous membrane. MOUTH: Mucous membranes of mouth are dry tongue is still dry. THROAT: There is no redness of the oropharynx. There is no exudates. 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 There is no catie-care ecchymosis. NECK: Supple. There is no JVD present. Carotids are equal there is no bruit. There is no lymphadenopathy. There is no goiter. There is no accessory muscle respiration use. Trachea central. LUNGS: Shows diminished air entry prolonged expiration there is bibasilar rales of CHF. There is no rhonchi or wheezing. There is no chest wall tenderness on palpation. On palpation there is hyperresonance. There is no bibasilar rales of heart failure. HEART: S1-S2 is heard. There is no S3 gallop. There is no S4 gallop there is systolic murmur left sternal border and the apex there is no rub. ABDOMEN: Soft. There is no hepatosplenomegaly. Bowel sounds are normal. There is no hepatosplenomegaly. EXTREMITIES: There is diminished bilateral femoral pulses with bruits. 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 He has bilateral femoral bruits present. Leg pulses are diminished. There is no pedal edema bilaterally. There is no DVT or cellulitis. There is no cyanosis or clubbing. 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 PSYCHIATRIC: Patient is a patient judg ment insight are intact his affect is normal, he is not agitated or anxious. The patient's intake and output is not accurate. Labs- All tests 24 hr 01/20/20 01/20/20 01/20/20 05:30 05:30 07:18 WBC 2.9 L RBC 2.91 L Hgb 9.5 L Hct 26.9 L MCV 92 MCH 32.6 MCHC 35.3 RDW 15.1 H Plt Count 116 L Sodium Cancelled Cancelled Potassium Cancelled Cancelled Chloride Cancelled Cancelled Carbon Dioxide Cancelled Cancelled Anion Gap Cancelled Cancelled BUN Cancelled Cancelled Creatinine Cancelled Cancelled Est GFR ( Amer) Cancelled Cancelled Est GFR (Non-Af Amer) Cancelled Cancelled Est GFR (MDRD) Non-Af Cancelled Cancelled Glucose Cancelled Cancelled Calcium Cancelled Cancelled EGFR Cancelled Cancelled Stool Occult Blood 01/20/20 01/20/20 08:35 17:17 WBC RBC Hgb Hct MCV MCH MCHC RDW Plt Count Sodium 130.2 L Potassium 4.2 Chloride 100 Carbon Dioxide 27 Anion Gap 3 L BUN 81 H Creatinine 1.15 Est GFR ( Amer) > 60 Est GFR (Non-Af Amer) Est GFR (MDRD) Non-Af > 60 Glucose 96 Calcium 7.8 L EGFR Stool Occult Blood POSITIVE Chest X-Ray 12/24/19 19:50 IMPRESSION: New right basilar airspace consolidative change, suspicious for pneumonia. Head CT 12/24/19 20:48 IMPRESSION: 1. No acute intracranial findings. 2. Senescent changes with chronic microvascular ischemia and old lacunar infarcts. Chest X-Ray 12/28/19 00:00 IMPRESSION: 1. New right pleural effusion since 12/24/2019, with worsening right pulmonary infiltrate, likely pneumonia. Chest X-Ray 12/29/19 00:00 IMPRESSION: Right internal jugular catheter as described. Improving right lower lobe pneumonia. GI Bleed Scan Nuclear Medicine 01/04/20 00:00 IMPRESSION: EVIDENCE OF ACTIVE GASTROINTESTINAL BLEEDING. POINT OF ORIGIN IS IN THE RIGHT UPPER QUADRANT. Chest X-Ray 01/05/20 06:00 IMPRESSION: Improved but persistent patchy right basilar airspace disease and trace effusion. Abdomen Ultrasound 01/07/20 00:00 IMPRESSION: NO ABDOMINAL AORTIC ANEURYSM. Abdomen/Pelvis CT 01/12/20 16:00 IMPRESSION: Wall thickening in the rectosigmoid consistent with colitis. There is an aortobifemoral graft which appears patent. However the left superficial femoral artery appears occluded in the visualized segments of the proximal thigh. Recommend correlation with CTA or arterial Doppler. This finding was discussed with Dr Alicia Brizuela @ 2003 Subcutaneous and intra-abdominal stranding which may reflect anasarca Renal cysts with marked atrophy of the left kidney Right basilar atelectasis and pleural effusion Additional chronic changes as above IMPRESSION/RECOMMENDATION 1. 2 cm duodenal ulcer with bleeding site that was cauterized: The patient has not had any further evidence of ongoing bleeding, in spite of the positive stool for occult blood. Patient's hemoglobin is remained stable. 2. Acute anemia: The patient's hemoglobin is stable at 10.5. Will recheck in the morning 3. Acute on chronic systolic heart failure.: Is well compensated. Continue Entresto and beta-abhishek. Continue midodrine 4. Acute nonoliguric renal failure. Patient with good urine output. Partly the BUN/creatinine secondary to patient's absorption of blood from his GI tract about the ligament of Treitz. The GFR is improved. His GFR is now normal. And greater than 60. 5. Hypotension. Patient is off dopamine. He is blood pressure is low normal after gentle hydration. 6. Severe mitral regurgitation, and severe tricuspid regurgitation and severe pulmonary hypertension. 7. DIlated cardiomyopathy and ischemic cardiomyopathy with severely reduced LV ejection fraction. Willl: The patient is at rest on Coreg and restart later on. 8.. COPD: At present no acute exacerbation. Continue treatment to Xopenex treatment 9. Coronary artery disease. History of old myocardial infarction and history of coronary bypass graft surgery. No anginal symptoms. Continue anti-CAD medication, as being down now. Due to her drop in blood pressure effect of nitrates this has been held. 10. History of hypertension: Blood pressure has improved we will give the patient gentle fluid resuscitation and stop the patient's dopamine. Also will stop the patient's steroids and Florinef. 11. History of AICD: No firing of his AICD recently. 12. Peripheral vascular disease: History of past history of left femoropopliteal bypass surgery. Abdominal ultrasound shows no evidence of abdominal aortic aneurysm. Findings of the CT scan noted. There is no acute limb ischemia seen at present. 13 History of pancytopenia. Note that the platelets are coming up. 14. Tobacco abuse disorder. We will continue the patient on NicoDerm patch 15. History of facial skin cancer. The patient will be requiring radiation treatment as per Dr. Domingo, radiation oncologist in [place]. 16. Elevated digoxin level without any evidence of digitoxicity. We will discontinue the patient's digoxin. TBut in view of the patient's renal insufficiency will not reinstitute digoxin. 17. Hypotension: Blood pressure is low normal with the patient of dopamine.. This is allow the patient to get his Coreg and Entresto. 18. DEPRESSION: Will continue patient's Prozac to 20 mg p.o. twice daily. Medications reviewed. Medical regimen management plan discussed with the patient's daughter. Medical decision making is of high complexity. 40 minutes spent with patient more than 50% of time spent in direct patient care.
[2020-01-21] MEDS: PANTOPRAZOLE SODIUM 40 MG TABLET.DR PO SCH ×2 (05:27→17:32)
[2020-01-21 06:51] LABS: HEMATOCRIT 26.2 % (37.9-51.0); HEMOGLOBIN 9.2 g/dL (13.5-17.0); MEAN CORPUSCULAR HEMOGLOBIN 32.5 pg (27.0-33.4); MEAN CORPUSCULAR HGB CONC 35.1 g/dL (32.0-36.0); MEAN CORPUSCULAR VOLUME 93 fl (80-97); RED BLOOD COUNT 2.83 10^6/uL (4.35-5.55); RED CELL DISTRIBUTION WIDTH 15.7 % (11.5-14.0); WHITE BLOOD COUNT 3.3 10^3/uL (4.0-10.5)
[2020-01-21 06:58] LABS: APPEARANCE,URINE CLOUDY; BILIRUBIN,URINE NEGATIVE (NEGATIVE); COLOR,URINE YELLOW; GLUCOSE, URINE NEGATIVE (NEGATIVE); KETONES,URINE NEGATIVE (NEGATIVE); LEUKOCYTE ESTERASE,URINE LARGE (NEGATIVE); NITRITE,URINE NEGATIVE (NEGATIVE); PROTEIN,URINE NEGATIVE (NEGATIVE); URINE SPECIFIC GRAVITY 1.011
[2020-01-21 07:48] LABS: PLATELET COUNT 97 10^3/uL (150-450)
[2020-01-21] MEDS: MULTIVITS W-MIN/IRON SOLN 60 ML PO SCH (10:10)
[2020-01-21] MEDS: NICOTINE 14 MG/24 HR PATCH.TD24 TD SCH (10:11)
[2020-01-21] MEDS: ENOXAPARIN SODIUM INJ 30 MG/0.3 ML DISP.SYRIN SUBCUT SCH (10:11)
[2020-01-21] MEDS: FUROSEMIDE 20 MG TABLET PO SCH (10:14)
[2020-01-21] MEDS: MIDODRINE HCL 5 MG TABLET PO SCH ×3 (10:14→17:32)
[2020-01-21] MEDS: FLUTICASONE/UMECLIDIN/VILANTER 100-62.5-25 MCG/DOSE IH SCH (10:14)
[2020-01-21] MEDS: CARVEDILOL 6.25 MG TABLET PO SCH ×2 (10:14→22:16)
[2020-01-21] MEDS: SACUBITRIL/VALSARTAN 49 MG/51 MG TABLET PO SCH ×2 (10:14→22:16)
[2020-01-21] MEDS: FLUOXETINE HCL 20 MG CAPSULE PO SCH ×2 (10:14→22:17)
--- NOTE | 2020-01-21 22:17 | Progress Note ---
Provider Note Provider Note: SUBJECTIVE: The patient states he feels a little stronger. There is no further diarrhea. There is no abdominal pain. The patient is able to sit up in bed but when he tries to stand up he feels dizzy. Physical therapy is trying to ambulate him. He denies any chest pain discomfort. There is no evidence of ongoing GI bleed. There is no anginal symptoms. There is no shortness of breath. There is no PND orthopnea or leg edema. There is no arrhythmias seen on the monitor. There is no firing of his AICD. PHYSICAL EXAMINATION: The patient appears to be chronically ill and malnourished and is emaciated. Selected Entries 01/21/20 01/21/20 08:17 10:00 Temperature 97.6 F Temperature Oral Source Pulse Rate 59 L Respiratory 14 Rate Blood Pressure 118/65 Blood Pressure 82 Mean BP Location Right Arm BP Position Sitting Oxygen Delivery Room Air Method ( includes room air) HEAD: Is atraumatic normocephalic. EYES: Pupils are equal round regular reactive to light and accommodation. Extraocular movements are normal. There is no conjunctival pallor. There is no scleral icterus. EARS: Tympanic membranes are intact. External auditory canals are clear. NOSE: There is no deviated nasal septum. There is no inflammation of the nasal mucous membrane. MOUTH: Mucous membranes of mouth are dry tongue is still dry. THROAT: There is no redness of the oropharynx. There is no exudates. 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 There is no catie-care ecchymosis. NECK: Supple. There is no JVD present. Carotids are equal there is no bruit. There is no lymphadenopathy. There is no goiter. There is no accessory muscle respiration use. Trachea central. LUNGS: Shows diminished air entry prolonged expiration there is bibasilar rales of CHF. There is no rhonchi or wheezing. There is no chest wall tenderness on palpation. On palpation there is hyperresonance. There is no bibasilar rales of heart failure. HEART: S1-S2 is heard. There is no S3 gallop. There is no S4 gallop there is systolic murmur left sternal border and the apex there is no rub. ABDOMEN: Soft. There is no hepatosplenomegaly. Bowel sounds are normal. There is no hepatosplenomegaly. EXTREMITIES: There is diminished bilateral femoral pulses with bruits. 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 He has bilateral femoral bruits present. Leg pulses are diminished. There is no pedal edema bilaterally. There is no DVT or cellulitis. There is no cyanosis or clubbing. 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 PSYCHIATRIC: Patient is a patient judgment insight are intact his affect is normal, he is not agitated or anxious. His 24-hour intake is 1990mL. Output is 1805 mL. Labs- All tests 24 hr 01/21/20 01/21/20 05:40 05:40 WBC 3.3 L RBC 2.83 L Hgb 9.2 L Hct 26.2 L MCV 93 MCH 32.5 MCHC 35.1 RDW 15.7 H Plt Count 97 L Urine Color YELLOW Urine Appearance CLOUDY Urine pH 6.0 Ur Specific [place] 1.011 Urine Protein NEGATIVE Urine Glucose (UA) NEGATIVE Urine Ketones NEGATIVE Urine Blood SMALL H Urine Nitrite NEGATIVE Urine Bilirubin NEGATIVE Urine Urobilinogen 2.0 H Ur Leukocyte Esterase LARGE H Urine WBC (Auto) >182 Urine RBC (Auto) 6 Urine WBC Clumps MANY U Non-Squamous Epis Auto 2 Urine Mucus (Auto) RARE Urine Ascorbic Acid NEGATIVE Chest X-Ray 12/24/19 19:50 IMPRESSION: New right basilar airspace consolidative change, suspicious for pneumonia. Head CT 12/24/19 20:48 IMPRESSION: 1. No acute intracranial findings. 2. Senescent changes with chronic microvascular ischemia and old lacunar infarcts. Chest X-Ray 12/28/19 00:00 IMPRESSION: 1. New right pleural effusion since 12/24/2019, with worsening right pulmonary infiltrate, likely pneumonia. Chest X-Ray 12/29/19 00:00 IMPRESSION: Right internal jugular catheter as described. Improving right lower lobe pneumonia. GI Bleed Scan Nuclear Medicine 01/04/20 00:00 IMPRESSION: EVIDENCE OF ACTIVE GASTROINTESTINAL BLEEDING. POINT OF ORIGIN IS IN THE RIGHT UPPER QUADRANT. Chest X-Ray 01/05/20 06:00 IMPRESSION: Improved but persistent patchy right basilar airspace disease and trace effusion. Abdomen Ultrasound 01/07/20 00:00 IMPRESSION: NO ABDOMINAL AORTIC ANEURYSM. Abdomen/Pelvis CT 01/12/20 16:00 IMPRESSION: Wall thickening in the rectosigmoid consistent with colitis. There is an aortobifemoral graft which appears patent. However the left superficial femoral artery appears occluded in the visualized segments of the proximal thigh. Recommend correlation with CTA or arterial Doppler. This finding was discussed with Dr Alicia Brizuela @ 2003 Subcutaneous and intra-abdominal stranding which may reflect anasarca Renal cysts with marked atrophy of the left kidney Right basilar atelectasis and pleural effusion Additional chronic changes as above IIMPRESSION/RECOMMENDATION: 1. 2 cm duodenal ulcer with bleeding site that was cauterized: The patient has not had any further diarrhea. There is no nausea or vomiting. But appetite is decreased. Seems that the bleeding is stopped. He has no further diarrhea. 2. Acute anemia: The patient's hemoglobin is stable at 1.2. Will recheck in the morning 3. Acute on chronic systolic heart failure.: This seems to be stated. We will continue to hold the patient's Lasix, Coreg and Entresto and continue dopamine at 5 mcg/kg/min infusion. Continue midodrine 4. Acute nonoliguric renal failure. Patient with good urine output. Partly the BUN/creatinine secondary to patient's absorption of blood from his GI tract about the ligament of Treitz. The GFR is improved. The last GFR was greater than 60 and normal. 5. Hypotension. This is resolved. The patient is off inotropes. He is still on the midodrine. His blood pressure is enough to give him Coreg and Entresto. 6. Severe mitral regurgitation, and severe tricuspid regurgitation and severe pulmonary hypertension. 7. DIlated cardiomyopathy and ischemic cardiomyopathy with severely reduced LV ejection fraction. Continue Coreg and Entresto. 8.. COPD: At present no acute exacerbation. Continue treatment to Xopenex treatment 9. Coronary artery disease. History of old myocardial infarction and history of coronary bypass graft surgery. No anginal symptoms. Continue anti-CAD medication, as being down now. Due to her drop in blood pressure effect of nitrates this has been held. 10. History of hypertension: Blood pressure has improved. 11. History of AICD: No firing of his AICD recently. 12. Peripheral vascular disease: History of past history of left femoropopliteal bypass surgery. Abdominal ultrasound shows no evidence of abdominal aortic aneurysm. Findings of the CT scan noted. There is no acute limb ischemia seen at present. 13 History of pancytopenia. Note that the platelets are coming up. 14. Tobacco abuse disorder. We will continue the patient on NicoDerm patch 15. History of facial skin cancer. The patient will be requiring radiation treatment as per Dr. Domingo, radiation oncologist in [place]. 16. Elevated digoxin level without any evidence of digitoxicity. We will discontinue the patient's digoxin. TBut in view of the patient's renal insufficiency will not reinstitute digoxin. 17. Hypotension: Blood pressure is low normal on a small dose of dopamine infusion. This is allow the patient to get his Coreg and Entresto. 18. DEPRESSION: Will continue patient's Prozac to 20 mg p.o. twice daily. Medications reviewed. Medical regimen management plan discussed with the patient's daughter. Medical decision making is of high complexity. 40 minutes spent with patient more than 50% of time spent in direct patient care. Based on my medical assessment, after consideration of the patient's comorbidities, presenting symptoms, or acuity I expect that the services needed warrant INPATIENT care.: Yes I certify that my determination is in accordance with my understanding of Medicare's requirements for reasonable and necessary INPATIENT services [42 CFR 412.3e].: Yes Medical Necessity: Significant Comorbidiites Make Outpatient Treatment Too Risky, Need Close Monitoring Due to Risk of Patient Decompensation, Risk of Complication if Not Cared For in Hospital, Risk of Diagnosis Which Will Require Inpatient Eval/Care/Monitoring.
[2020-01-22] MEDS: ONDANSETRON HCL INJ/PF 4 MG/2 ML SDV IV PRN ×2 (04:36→10:41)
[2020-01-22] MEDS: PANTOPRAZOLE SODIUM 40 MG TABLET.DR PO SCH ×2 (06:19→17:25)
[2020-01-22] MEDS: FUROSEMIDE 20 MG TABLET PO SCH (10:36)
[2020-01-22] MEDS: ACETAMINOPHEN 325 MG TABLET PO PRN (10:36)
[2020-01-22] MEDS: CARVEDILOL 6.25 MG TABLET PO SCH ×2 (10:36→21:28)
[2020-01-22] MEDS: MIDODRINE HCL 5 MG TABLET PO SCH ×3 (10:36→17:25)
[2020-01-22] MEDS: SACUBITRIL/VALSARTAN 49 MG/51 MG TABLET PO SCH ×2 (10:37→21:27)
[2020-01-22] MEDS: FLUOXETINE HCL 20 MG CAPSULE PO SCH ×2 (10:37→21:27)
[2020-01-22] MEDS: ENOXAPARIN SODIUM INJ 30 MG/0.3 ML DISP.SYRIN SUBCUT SCH (10:37)
[2020-01-22] MEDS: NICOTINE 14 MG/24 HR PATCH.TD24 TD SCH (10:38)
[2020-01-22] MEDS: FLUTICASONE/UMECLIDIN/VILANTER 100-62.5-25 MCG/DOSE IH SCH (10:38)
[2020-01-22] MEDS: MULTIVITS W-MIN/IRON SOLN 60 ML PO SCH (10:39)
--- NOTE | 2020-01-22 19:16 | Progress Note ---
Provider Note Provider Note: CARDIOLOGY PROGRESS NOTE by Dr. Alicia Brizuela on 01/22/2020. SUBJECTIVE: The patient states he had to use loose stools but no abdominal pain. It does not seem that he had melena. He denies any chest pain or discomfort. There is no PND orthopnea or leg edema. He appears stronger and he sat up in the chair for a little while but complains of generalized weakness. He is also able to feed himself better. His appetite is good. Yesterday his diet was advanced to full cardiac diet. There is no arrhythmias seen on the monitor. There is no firing of his AICD. PHYSICAL EXAMINATION: Patient appears to be chronically ill. He appears to be better nourished now and less emaciated. Selected Entries 01/22/20 16:10 Temperature 98.4 F Temperature Oral Source Pulse Rate 69 Respiratory 17 Rate Blood Pressure 124/62 Blood Pressure 82 Mean BP Location Right Arm BP Position Supine O2 Sat by Pulse 97 Oximetry Oxygen Delivery Room Air Method HEAD: Is atraumatic normocephalic. EYES: Pupils are equal round regular reactive to light and accommodation. Extraocular movements are normal. There is no conjunctival pallor. There is no scleral icterus. EARS: Tympanic membranes are intact. External auditory canals are clear. NOSE: There is no deviated nasal septum. There is no inflammation of the nasal mucous membrane. MOUTH: Mucous membranes of mouth are dry tongue is still dry. THROAT: There is no redness of the oropharynx. There is no exudates. 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 There is no catie-care ecchymosis. NECK: Supple. There is no JVD present. Carotids are equal there is no bruit. There is no lymphadenopathy. There is no goiter. There is no accessory muscle respiration use. Trachea central. LUNGS: Shows diminished air entry prolonged expiration there is bibasilar rales of CHF. There is no rhonchi or wheezing. There is no chest wall tenderness on palpation. On palpation there is hyperresonance. There is no bibasilar rales of heart failure. HEART: S1-S2 is heard. There is no S3 gallop. There is no S4 gallop there is systolic murmur left sternal border and the apex there is no rub. ABDOMEN: Soft. There is no hepatosplenomegaly. Bowel sounds are normal. There is no hepatosplenomegaly. EXTREMITIES: There is diminished bilateral femoral pulses with bruits. 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 He has bilateral femoral bruits present. Leg pulses are diminished. There is no pedal edema bilaterally. There is no DVT or cellulitis. There is no cyanosis or clubbing. 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 PSYCHIATRIC: Patient is a patient judgment insight are intact his affect is normal, he is not agitated or anxious. His 24-hour intake is 3039mL. Output is 1475 mL. Chest X-Ray 12/24/19 19:50 IMPRESSION: New right basilar airspace consolidative change, suspicious for pneumonia. Head CT 12/24/19 20:48 IMPRESSION: 1. No acute intracranial findings. 2. Senescent changes with chronic microvascular ischemia and old lacunar infarcts. Chest X-Ray 12/28/19 00:00 IMPRESSION: 1. New right pleural effusion since 12/24/2019, with worsening right pulmonary infiltrate, likely pneumonia. Chest X-Ray 12/29/19 00:00 IMPRESSION: Right internal jugular catheter as described. Improving right lower lobe pneumonia. GI Bleed Scan Nuclear Medicine 01/04/20 00:00 IMPRESSION: EVIDENCE OF ACTIVE GASTROINTESTINAL BLEEDING. POINT OF ORIGIN IS IN THE RIGHT UPPER QUADRANT. Chest X-Ray 01/05/20 06:00 IMPRESSION: Improved but persistent patchy right basilar airspace disease and trace effusion. Abdomen Ultrasound 01/07/20 00:00 IMPRESSION: NO ABDOMINAL AORTIC ANEURYSM. Abdomen/Pelvis CT 01/12/20 16:00 IMPRESSION: Wall thickening in the rectosigmoid consistent with colitis. There is an aortobifemoral graft which appears patent. However the left superficial femoral artery appears occluded in the visualized segments of the proximal thigh. Recommend correlation with CTA or arterial Doppler. This finding was discussed with Dr Alicia Brizuela @ 2003 Subcutaneous and intra-abdominal stranding which may reflect anasarca Renal cysts with marked atrophy of the left kidney Right basilar atelectasis and pleural effusion Additional chronic changes as above IIMPRESSION/RECOMMENDATION: 1. Upper GI bleedin cm duodenal ulcer with bleeding site that was cauterized: The patient has not had any further diarrhea. There is no nausea or vomiting. But appetite is decreased. Seems that the bleeding is stopped. He has no further diarrhea. 2. Acute anemia: The patient's hemoglobin is stable at 1.2. Will recheck in the morning 3. Acute on chronic systolic heart failure.: This seems to be stated. We will continue to hold the patient's Lasix, Coreg and Entresto and continue dopamine at 5 mcg/kg/min infusion. Continue midodrine 4. Acute nonoliguric renal failure. Patient with good urine output. Partly the BUN/creatinine secondary to patient's absorption of blood from his GI tract about the ligament of Treitz. The GFR is improved. The last GFR was greater than 60 and normal. 5. Hypotension. This is resolved. The patient is off inotropes. He is still on the midodrine. His blood pressure is enough to give him Coreg and Entresto. 6. Severe mitral regurgitation, and severe tricuspid regurgitation and severe pulmonary hypertension. 7. DIlated cardiomyopathy and ischemic cardiomyopathy with severely reduced LV ejection fraction. Continue Coreg and Entresto. 8.. COPD: At present no acute exacerbation. Continue treatment to Xopenex treatment 9. Coronary artery disease. History of old myocardial infarction and history of coronary bypass graft surgery. No anginal symptoms. Continue anti-CAD medication, as being down now. Due to her drop in blood pressure is nitrates has been discontinued. We will start with a later date. 10. History of hypertension: Blood pressure has improved. 11. History of AICD: No firing of his AICD recently. 12. Peripheral vascular disease: History of past history of left femoropopliteal bypass surgery. Abdominal ultrasound shows no evidence of abdominal aortic aneurysm. Findings of the CT scan noted. There is no acute limb ischemia seen at present. 13 History of pancytopenia. Note that the platelets are coming up. 14. Tobacco abuse disorder. We will continue the patient on NicoDerm patch 15. History of facial skin cancer. The patient will be requiring radiation treatment as per Dr. Domingo, radiation oncologist in [place]. 16. 17. Hypotension: Blood pressure is normal on a small dose of dopamine infusion. This is allow the patient to get his Coreg and Entresto. 18. DEPRESSION: Will continue patient's Prozac to 20 mg p.o. twice daily. Medications reviewed. Medical regimen management plan discussed with the patient's daughter. Medical decision making is now of moderate complexity. 40 minutes spent with patient more than 50% of time spent in direct patient care. Based on my medical assessment, after consideration of the patient's comorbidities, presenting symptoms, or acuity I expect that the services needed warrant INPATIENT care.: Yes I certify that my determination is in accordance with my understanding of Medicare's requirements for reasonable and necessary INPATIENT services [42 CFR 412.3e].: Yes Medical Necessity: Significant Comorbidiites Make Outpatient Treatment Too Risky, Need Close Monitoring Due to Risk of Patient Decompensation, Risk of Comp lication if Not Cared For in Hospital, Risk of Diagnosis Which Will Require Inpatient Eval/Care/Monitoring. Hopefully will discharge the patient in the morning tomorrow. Patient [facility].
[2020-01-23 03:28] LABS: C DIFFICILE GDH NEGATIVE (NEGATIVE)
[2020-01-23] MEDS: ACETAMINOPHEN 325 MG TABLET PO PRN ×2 (04:01→22:18)
[2020-01-23] MEDS: PANTOPRAZOLE SODIUM 40 MG TABLET.DR PO SCH ×2 (05:12→16:35)
[2020-01-23 07:07] LABS: BLOOD UREA NITROGEN 51 mg/dL (7-20); CALCIUM 7.7 mg/dL (8.4-10.2); GLUCOSE 95 mg/dL (75-110); POTASSIUM 4.3 mmol/L (3.6-5.0)
[2020-01-23 07:13] LABS: CARBON DIOXIDE 29 mmol/L (22-30); CHLORIDE 99 mmol/L (98-107)
[2020-01-23 07:33] LABS: HEMATOCRIT 24.3 % (37.9-51.0); HEMOGLOBIN 8.4 g/dL (13.5-17.0); MEAN CORPUSCULAR HEMOGLOBIN 32.1 pg (27.0-33.4); MEAN CORPUSCULAR HGB CONC 34.6 g/dL (32.0-36.0); MEAN CORPUSCULAR VOLUME 93 fl (80-97); RED BLOOD COUNT 2.62 10^6/uL (4.35-5.55); RED CELL DISTRIBUTION WIDTH 15.4 % (11.5-14.0); WHITE BLOOD COUNT 3.5 10^3/uL (4.0-10.5)
[2020-01-23 07:58] LABS: PLATELET COUNT 97 10^3/uL (150-450)
[2020-01-23 08:14] LABS: ANION GAP 2 (5-19)
[2020-01-23] MEDS ORDERED: NORMAL SALINE 250 ML IV PRN ×2 (08:41)
[2020-01-23] MEDS ORDERED: FUROSEMIDE INJ/PF 20 MG/2 ML SDV IV PRN (08:41)
[2020-01-23] MEDS: SACUBITRIL/VALSARTAN 49 MG/51 MG TABLET PO SCH ×2 (10:30→22:19)
[2020-01-23] MEDS: FLUOXETINE HCL 20 MG CAPSULE PO SCH ×2 (10:30→22:19)
[2020-01-23] MEDS: FUROSEMIDE 20 MG TABLET PO SCH (10:30)
[2020-01-23] MEDS: MIDODRINE HCL 5 MG TABLET PO SCH ×3 (10:31→18:07)
[2020-01-23] MEDS: CARVEDILOL 6.25 MG TABLET PO SCH ×2 (10:31→22:19)
[2020-01-23] MEDS: ENOXAPARIN SODIUM INJ 30 MG/0.3 ML DISP.SYRIN SUBCUT SCH (10:34)
[2020-01-23] MEDS: NICOTINE 14 MG/24 HR PATCH.TD24 TD SCH (11:45)
--- NOTE | 2020-01-23 12:04 | RADIOLOGY REPORT (SQ) ---
EXAM DESCRIPTION: NM GI BLEED SCAN IMAGES COMPLETED DATE/TIME: 01/23/2020 11:52 am REASON FOR STUDY: GI blled COMPARISON: None. RADIONUCLIDE AND DOSE: 25.3 millicuries Technetium-labeled red blood cells. The route of agent administration: Intravenous. TECHNIQUE: Serial arterial-phase images acquired for 80 seconds immediately following injection of r adionuclide. Additional 60 images acquired at 60 seconds per image. LIMITATIONS: None. FINDINGS: Flow images without focal areas of abnormal radionuclide location. Serial images show no abnormal accumulation of radionuclide. IMPRESSION: NORMAL RADIONUCLIDE GASTROINTESTINAL BLEEDING STUDY. ACTIVE BLEEDING NOTED ON PRIOR PARVEEN DY HAS RESOLVED. TECHNICAL DOCUMENTATION: JOB ID: [id number] 2010 [employer]- All Rights Reserved Reading location - IP/workstation name: [email or web address]
[2020-01-23] MEDS: MULTIVITS W-MIN/IRON SOLN 60 ML PO SCH (14:36)
[2020-01-23] MEDS ORDERED: NORMAL SALINE 10 ML SDV (AFTER EACH USE) IV PRN (15:00)
[2020-01-23] MEDS: FLUTICASONE/UMECLIDIN/VILANTER 100-62.5-25 MCG/DOSE IH SCH (15:08)
[2020-01-23] MEDS: ONDANSETRON HCL INJ/PF 4 MG/2 ML SDV IV PRN (16:35)
--- NOTE | 2020-01-23 18:55 | Progress Note ---
Provider Note Provider Note: CARDIOLOGY PROGRESS NOTE by Dr. Alicia Brizuela on 01/23/2020. SUBJECTIVE: The patient yesterday had 2 black tarry stools which were loose. He had no abdominal pain. His stool was positive for occult blood. His hemoglobin dropped to 8.4 this morning. Hence a GI scan was ordered. This did not show any active site of bleeding. Hence this probably is slow ooze. Hence determination was made to give the patient 2 units of blood transfusion this is due to the patient severely reduced LV ejection fraction and coronary artery disease. Would like to keep the hemoglobin 10 or above. The patient in the meantime does complain of generalized fatigue and weakness. He is able to sit up in the chair and his blood pressure is better. He has no anginal symptoms. There is no shortness of breath. There is no PND orthopnea. There is no arrhythmias seen on the monitor. There is no firing of his AICD. Physical EXAMINATION: The patient appears to be emaciated and malnourished. Appears to be chronically ill. But slightly better improvement in his appearance compared to the initial days of his admission. Selected Entries 01/23/20 14:10 Temperature 97.8 F Temperature Oral Source Pulse Rate 66 Respiratory 16 Rate Blood Pressure 148/69 H [Right Upper Arm] Blood Pressure 95 Mean [Right Upper Arm] Blood Pressure Supine Position [Right Upper Arm] O2 Sat by Pulse 95 Oximetry Oxygen Delivery Room Air Method ( includes room air) HEAD: Is atraumatic normocephalic. EYES: Pupils are equal round regular reactive to light and accommodation. Extraocular movements are normal. There is no conjunctival pallor. There is no scleral icterus. EARS: Tympanic membranes are intact. External auditory canals are clear. NOSE: There is no deviated nasal septum. There is no inflammation of the nasal mucous membrane. MOUTH: Mucous membranes of mouth are dry tongue is still dry. THROAT: There is no redness of the oropharynx. There is no exudates. 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 There is no catie-care ecchymosis. NECK: Supple. There is no JVD present. Carotids are equal there is no bruit. There is no lymphadenopathy. There is no goiter. There is no accessory muscle respiration use. Trachea central. LUNGS: Shows diminished air entry prolonged expiration there is bibasilar rales of CHF. There is no rhonchi or wheezing. There is no chest wall tenderness on palpation. On palpation there is hyperresonance. There is no bibasilar rales of heart failure. HEART: S1-S2 is heard. There is no S3 gallop. There is no S4 gallop there is systolic murmur left sternal border and the apex there is no rub. ABDOMEN: Soft. There is no hepatosplenomegaly. Bowel sounds are normal. There is no hepatosplenomegaly. EXTREMITIES: There is diminished bilateral femoral pulses with bruits. 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 He has bilateral femoral bruits present. Leg pulses are diminished. There is no pedal edema bilaterally. There is no DVT or cellulitis. There is no cyanosis or clubbing. [employer] SALES: The patient is asleep, but when aroused/awaken he is oriented x3 with no focal deficits. PSYCHIATRIC: Patient is a patient judgment insight are intact his affect is normal, he is not agitated or anxious. The patient's 24-hour intake is 996 mL. Output is 1170. Labs- All tests 24 hr 01/14/20 01/22/20 01/23/20 16:48 21:00 05:22 WBC 3.5 L RBC 2.62 L Hgb 8.4 L Hct 24.3 L MCV 93 MCH 32.1 MCHC 34.6 RDW 15.4 H Plt Count 97 L Sodium Potassium Chloride Carbon Dioxide Anion Gap BUN Creatinine Est GFR ( Amer) Est GFR (MDRD) Non-Af Glucose Calcium Stl C. Difficile GDH Ag NEGATIVE Stl C.difficile Tox A&B NEGATIVE Blood Type Antibody Screen Crossmatch See Detail 01/23/20 01/23/20 01/23/20 05:22 12:10 22:30 WBC 4.8 RBC 3.55 L Hgb 11.3 L D Hct 32.2 L MCV 91 MCH 31.8 MCHC 35.0 RDW 15.3 H Plt Count 100 L Sodium 130.2 L Potassium 4.3 Chloride 99 Carbon Dioxide 29 Anion Gap 2 L BUN 51 H Creatinine 1.50 H Est GFR ( Amer) 56 L Est GFR (MDRD) Non-Af 47 L Glucose 95 Calcium 7.7 L Stl C. Difficile GDH Ag Stl C.difficile Tox A&B Blood Type B POSITIVE Antibody Screen NEGATIVE Crossmatch See Detail Chest X-Ray 12/24/19 19:50 IMPRESSION: New right basilar airspace consolidative change, suspicious for pneumonia. Head CT 12/24/19 20:48 IMPRESSION: 1. No acute intracranial findings. 2. Senescent changes with chronic microvascular ischemia and old lacunar infarcts. Chest X-Ray 12/28/19 00:00 IMPRESSION: 1. New right pleural effusion since 12/24/2019, with worsening right pulmonary infiltrate, likely pneumonia. Chest X-Ray 12/29/19 00:00 IMPRESSION: Right internal jugular catheter as described. Improving right lower lobe pneumonia. GI Bleed Scan Nuclear Medicine 01/04/20 00:00 IMPRESSION: EVIDENCE OF ACTIVE GASTROINTESTINAL BLEEDING. POINT OF ORIGIN IS IN THE RIGHT UPPER QUADRANT. Chest X-Ray 01/05/20 06:00 IMPRESSION: Improved but persistent patchy right basilar airspace disease and trace effusion. Abdomen Ultrasound 01/07/20 00:00 IMPRESSION: NO ABDOMINAL AORTIC ANEURYSM. Abdomen/Pelvis CT 01/12/20 16:00 IMPRESSION: Wall thickening in the rectosigmoid consistent with colitis. There is an aortobifemoral graft which appears patent. However the left superficial femoral artery appears occluded in the visualized segments of the proximal thigh. Recommend correlation with CTA or arterial Doppler. This finding was discussed with Dr Alicia Brizuela @ 2003 Subcutaneous and intra-abdominal stranding which may reflect anasarca Renal cysts with marked atrophy of the left kidney Right basilar atelectasis and pleural effusion Additional chronic changes as above GI Bleed Scan Nuclear Medicine 01/23/20 00:00 IMPRESSION: NORMAL RADIONUCLIDE GASTROINTESTINAL BLEEDING STUDY. ACTIVE BLEEDING NOTED ON PRIOR STUDY HAS RESOLVED. IMPRESSION/RECOMMENDATION: 1. Upper GI bleedin cm duodenal ulcer with bleeding site that was cauterized. There seems to be slow bleeding since the patient's occult blood was positive yesterday and the patient hemoglobin dropped to 8.4. Hence the patient not ready to be transferred to residential. Will transfuse the patient 2 units of packed RBCs. Note that the patient GI scan did not show any active bleeding. Hence this might be just to slow wounds. We will continue pantoprazole. 2. Acute anemia: The patient's hemoglobin again dropped to 8.4. Hence in view of the patient's cardiomyopathy coronary artery disease and severe pulmonary hypertension we will transfuse the patient to keep the hemoglobin 10 or above. 3. Acute on chronic systolic heart failure.: This seems to be stated. We will continue to hold the patient's Lasix, Coreg and Entresto and continue dopamine at 5 mcg/kg/min infusion. Continue midodrine 4. Acute nonoliguric renal failure. Patient with good urine output. Partly the BUN/creatinine secondary to patient's absorption of blood from his GI tract about the ligament of Treitz. The GFR is improved. The last GFR was was around 45 mL. This is probably secondary to blood in the gut. 5. Duodenal ulcer with bleeding. Active bleeding probably stop, but there is still some evidence of slow oozing. We will continue to watch the patient clinically. 6. Severe mitral regurgitation, and severe tricuspid regurgitation and severe pulmonary hypertension. 7. DIlated cardiomyopathy and ischemic cardiomyopathy with severely reduced LV ejection fraction. Continue Coreg and Entresto. 8.. COPD: At present no acute exacerbation. Continue treatment to Xopenex treatment 9. Coronary artery disease. History of old myocardial infarction and history of coronary bypass graft surgery. No anginal symptoms. Continue anti-CAD medication, as being down now. Due to her drop in blood pressure is nitrates has been discontinued. We will start with a later date. 10. History of hypertension: Blood pressure has improved. 11. History of AICD: No firing of his AICD recently. 12. Peripheral vascular disease: History of past history of left femoropopliteal bypass surgery. Abdominal ultrasound shows no evidence of abdominal aortic aneurysm. Findings of the CT scan noted. There is no acute limb ischemia seen at present. 13 History of pancytopenia. Note that the platelets are coming up. 14. Tobacco abuse disorder. We will continue the patient on NicoDerm patch 15. History of facial skin cancer. The patient will be requiring radiation treatment as per Dr. Domingo, radiation oncologist in [place]. 16. 17. Hypotension: Blood pressure is normal on a small dose of dopamine infusion. This is allow the patient to get his Coreg and Entresto. 18. DEPRESSION: Will continue patient's Prozac to 20 mg p.o. twice daily. Medications reviewed. Medical regimen management plan discussed with the patient's daughter. Medical decision making is now again of high complexity. 40 minutes spent with patient more than 50% of time spent in direct patient care. I have spoken to the patient's daughter Ms. Edith Phillips about the change in plans of the patient will not be transferred to residential today. We will watch the patient for the next 48 hours and if stable will transfer him to detention facility on Sunday. Based on my medical assessment, after consideration of the patient's comorbidities, presenting symptoms, or acuity I expect that the services needed warrant INPATIENT care.: Yes I certify that my determination is in accordance with my understanding of Medicare's requirements for reasonable and necessary INPATIENT services [42 CFR 412.3e].: Yes Medical Necessity: Significant Comorbidiites Make Outpatient Treatment Too Risky, Need Close Monitoring Due to Risk of Patient Decompensation, Risk of Complication if Not Cared For in Hospital, Risk of Diagnosis Which Will Require Inpatient Eval/Care/Monitoring. Hopefully will discharge the patient soon. Patient will be transferred to a detention facility.
[2020-01-23] MEDS: NORMAL SALINE 10 ML SDV (SCHEDULED) IV SCH (22:19)
[2020-01-23 22:42] LABS: HEMATOCRIT 32.2 % (37.9-51.0); HEMOGLOBIN 11.3 g/dL (13.5-17.0); MEAN CORPUSCULAR HEMOGLOBIN 31.8 pg (27.0-33.4); MEAN CORPUSCULAR VOLUME 91 fl (80-97); PLATELET COUNT 100 10^3/uL (150-450); RED BLOOD COUNT 3.55 10^6/uL (4.35-5.55); RED CELL DISTRIBUTION WIDTH 15.3 % (11.5-14.0); WHITE BLOOD COUNT 4.8 10^3/uL (4.0-10.5)
[2020-01-24] MEDS: ONDANSETRON HCL INJ/PF 4 MG/2 ML SDV IV PRN ×2 (02:29→15:41)
[2020-01-24] MEDS: PANTOPRAZOLE SODIUM 40 MG TABLET.DR PO SCH ×2 (05:35→17:21)
[2020-01-24 06:25] LABS: HEMATOCRIT 30.5 % (37.9-51.0); HEMOGLOBIN 10.8 g/dL (13.5-17.0); MEAN CORPUSCULAR HEMOGLOBIN 31.9 pg (27.0-33.4); MEAN CORPUSCULAR HGB CONC 35.4 g/dL (32.0-36.0); MEAN CORPUSCULAR VOLUME 90 fl (80-97); RED BLOOD COUNT 3.38 10^6/uL (4.35-5.55); RED CELL DISTRIBUTION WIDTH 15.5 % (11.5-14.0); WHITE BLOOD COUNT 4.9 10^3/uL (4.0-10.5)
[2020-01-24 06:52] LABS: PLATELET COUNT 91 10^3/uL (150-450)
[2020-01-24 08:33] LABS: APPEARANCE,URINE CLEAR; BILIRUBIN,URINE NEGATIVE (NEGATIVE); COLOR,URINE YELLOW; GLUCOSE, URINE NEGATIVE (NEGATIVE); KETONES,URINE NEGATIVE (NEGATIVE); LEUKOCYTE ESTERASE,URINE MODERATE (NEGATIVE); NITRITE,URINE NEGATIVE (NEGATIVE); PROTEIN,URINE NEGATIVE (NEGATIVE); URINE SPECIFIC GRAVITY 1.012
[2020-01-24] MEDS: FLUOXETINE HCL 20 MG CAPSULE PO SCH ×2 (09:21→21:15)
[2020-01-24] MEDS: FUROSEMIDE 20 MG TABLET PO SCH (09:21)
[2020-01-24] MEDS: SACUBITRIL/VALSARTAN 49 MG/51 MG TABLET PO SCH ×2 (09:21→21:15)
[2020-01-24] MEDS: CARVEDILOL 6.25 MG TABLET PO SCH ×2 (09:22→21:15)
[2020-01-24] MEDS: NICOTINE 14 MG/24 HR PATCH.TD24 TD SCH (09:23)
[2020-01-24] MEDS: MULTIVITS W-MIN/IRON SOLN 60 ML PO SCH (09:24)
[2020-01-24] MEDS: ENOXAPARIN SODIUM INJ 30 MG/0.3 ML DISP.SYRIN SUBCUT SCH (09:24)
[2020-01-24] MEDS: MIDODRINE HCL 5 MG TABLET PO SCH ×3 (09:25→17:21)
[2020-01-24] MEDS: NORMAL SALINE 10 ML SDV (SCHEDULED) IV SCH ×2 (09:25→21:21)
--- NOTE | 2020-01-24 12:43 | Progress Note ---
Provider Note Provider Note: CARDIOLOGY PROGRESS NOTE by Dr. Alicia Brizuela on 01/24/2020. SUBJECTIVE: The patient feels stronger. His blood pressure is better. He still has heme positive stools. Although he denies any abdominal pain. There is no chest pain or discomfort. There is no PND orthopnea or leg edema. The patient's appetite is much improved. He appears to be less emaciated. There is no arrhythmias seen on the monitor. There is no firing of his AICD. There is no PND orthopnea or leg edema. There is no palpitations or syncope or near syncope. PHYSICAL EXAMINATION: The patient appears to be chronically ill. At present in no acute distress. Selected Entries 01/24/20 11:11 Temperature 98.2 F Temperature Oral Source Pulse Rate 64 Respiratory 17 Rate Blood Pressure 137/63 H Blood Pressure 87 Mean BP Location Right Arm BP Position Supine O2 Sat by Pulse 93 Oximetry Oxygen Delivery Room Air Method HEAD: Is atraumatic normocephalic. EYES: Pupils are equal round regular reactive to light and accommodation. Extraocular movements are normal. There is no conjunctival pallor. There is no scleral icterus. EARS: Tympanic membranes are intact. External auditory canals are clear. NOSE: There is no deviated nasal septum. There is no inflammation of the nasal mucous membrane. MOUTH: Mucous membranes of mouth are dry tongue is still dry. THROAT: There is no redness of the oropharynx. There is no exudates. 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 There is no catie-care ecchymosis. NECK: Supple. There is no JVD present. Carotids are equal there is no bruit. There is no lymphadenopathy. There is no goiter. There is no accessory muscle respiration use. Trachea central. LUNGS: Shows diminished air entry prolonged expiration there is bibasilar rales of CHF. There is no rhonchi or wheezing. There is no chest wall tenderness on palpation. On palpation there is hyperresonance. There is no bibasilar rales of heart failure. HEART: S1-S2 is heard. There is no S3 gallop. There is no S4 gallop there is systolic murmur left sternal border and the apex there is no rub. ABDOMEN: Soft. There is no hepatosplenomegaly. Bowel sounds are normal. There is no hepatosplenomegaly. EXTREMITIES: There is diminished bilateral femoral pulses with bruits. 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 He has bilateral femoral bruits present. Leg pulses are diminished. There is no pedal edema bilaterally. There is no DVT or cellulitis. There is no cyanosis or clubbing. 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 PSYCHIATRIC: Patient is a patient judgment insight are intact, and his affect is normal. The patient's 24-hour total intake was 1987 and now. 24-hour total output is 1650 and now. Labs- All tests 24 hr 01/23/20 01/24/20 01/24/20 22:30 05:44 06:20 WBC 4.8 4.9 RBC 3.55 L 3.38 L Hgb 11.3 L D 10.8 L Hct 32.2 L 30.5 L MCV 91 90 MCH 31.8 31.9 MCHC 35.0 35.4 RDW 15.3 H 15.5 H Plt Count 100 L 91 L Urine Color YELLOW Urine Appearance CLEAR Urine pH 7.0 Ur Specific [place] 1.012 Urine Protein NEGATIVE Urine Glucose (UA) NEGATIVE Urine Ketones NEGATIVE Urine Blood MODERATE H Urine Nitrite NEGATIVE Urine Bilirubin NEGATIVE Urine Urobilinogen 2.0 H Ur Leukocyte Esterase MODERATE H Urine WBC (Auto) 80 Urine RBC (Auto) 40 Urine Mucus (Auto) RARE Urine Ascorbic Acid NEGATIVE Stool Occult Blood 01/24/20 13:20 WBC RBC Hgb Hct MCV MCH MCHC RDW Plt Count Urine Color Urine Appearance Urine pH Ur Specific [place] Urine Protein Urine Glucose (UA) Urine Ketones Urine Blood Urine Nitrite Urine Bilirubin Urine Urobilinogen Ur Leukocyte Esterase Urine WBC (Auto) Urine RBC (Auto) Urine Mucus (Auto) Urine Ascorbic Acid Stool Occult Blood POSITIVE Chest X-Ray 12/24/19 19:50 IMPRESSION: New right basilar airspace consolidative change, suspicious for pneumonia. Head CT 12/24/19 20:48 IMPRESSION: 1. No acute intracranial findings. 2. Senescent changes with chronic microvascular ischemia and old lacunar infarcts. Chest X-Ray 12/28/19 00:00 IMPRESSION: 1. New right pleural effusion since 12/24/2019, with worsening right pulmonary infiltrate, likely pneumonia. Chest X-Ray 12/29/19 00:00 IMPRESSION: Right internal jugular catheter as described. Improving right lower lobe pneumonia. GI Bleed Scan Nuclear Medicine 01/04/20 00:00 IMPRESSION: EVIDENCE OF ACTIVE GASTROINTESTINAL BLEEDING. POINT OF ORIGIN IS IN THE RIGHT UPPER QUADRANT. Chest X-Ray 01/05/20 06:00 IMPRESSION: Improved but persistent patchy right basilar airspace disease and trace effusion. Abdomen Ultrasound 01/07/20 00:00 IMPRESSION: NO ABDOMINAL AORTIC ANEURYSM. Abdomen/Pelvis CT 01/12/20 16:00 IMPRESSION: Wall thickening in the rectosigmoid consistent with colitis. There is an aortobifemoral graft which appears patent. However the left superficial femoral artery appears occluded in the visualized segments of the proximal thigh. Recommend correlation with CTA or arterial Doppler. This finding was discussed with Dr Alicia Brizuela @ 2003 Subcutaneous and intra-abdominal stranding which may reflect anasarca Renal cysts with marked atrophy of the left kidney Right basilar atelectasis and pleural effusion Additional chronic changes as above GI Bleed Scan Nuclear Medicine 01/23/20 00:00 IMPRESSION: NORMAL RADIONUCLIDE GASTROINTESTINAL BLEEDING STUDY. ACTIVE BLEEDING NOTED ON PRIOR STUDY HAS RESOLVED. IMPRESSION/RECOMMENDATION: 1. Upper GI bleedin cm duodenal ulcer with bleeding site that was cauterized. There seems to be slow bleeding since the patient's occult blood was positive yesterday and the patient hemoglobin dropped to 8.4. Hence the patient not ready to be transferred to alf.. Note that the patient GI scan did not show any active bleeding. The patient's hemoglobin is 10.8. The patient's stool is positive for occult blood. Will add sucralfate. We will continue pantoprazole. 2. Acute anemia: The patient's hemoglobin is 10.8. Hence in view of the patient's cardiomyopathy coronary artery disease and severe pulmonary hypertension we will transfuse the patient to keep the hemoglobin 10 or above. 3. Acute on chronic systolic heart failure.: This seems to be stated. We will continue to hold the patient's Lasix, Coreg and Entresto . 4. Acute nonoliguric renal failure. Patient with good urine output. Partly the BUN/creatinine secondary to patient's absorption of blood from his GI tract about the ligament of Treitz. The GFR is improved. The last GFR was was around 45 mL. This is probably secondary to blood in the gut. 5. Duodenal ulcer with bleeding. Active bleeding probably stop, but there is still some evidence of slow oozing. We will continue to watch the patient clinically. 6. Severe mitral regurgitation, and severe tricuspid regurgitation and severe pulmonary hypertension. 7. DIlated cardiomyopathy and ischemic cardiomyopathy with severely reduced LV ejection fraction. Continue Coreg and Entresto. 8.. COPD: At present no acute exacerbation. Continue treatment to Xopenex t reatment 9. Coronary artery disease. History of old myocardial infarction and history of coronary bypass graft surgery. No anginal symptoms. Continue anti-CAD medication, as being down now. Due to her drop in blood pressure is nitrates has been discontinued. We will start with a later date. 10. History of hypertension: Blood pressure has improved. The patient is systolic blood pressure at 1 time was greater than 155. We will decrease the midodrine to 5 mg p.o. 3 times daily. 11. History of AICD: No firing of his AICD recently. 12. Peripheral vascular disease: History of past history of left femoropopliteal bypass surgery. Abdominal ultrasound shows no evidence of abdominal aortic aneurysm. Findings of the CT scan noted. There is no acute limb ischemia seen at present. 13 History of pancytopenia. Note that the platelets are coming up. 14. Tobacco abuse disorder. We will continue the patient on NicoDerm patch 15. History of facial skin cancer. The patient will be requiring radiation treatment as per Dr. Domingo, radiation oncologist in [place]. 16. 17. Hypotension: This is resolved. The patient's blood pressure was greater than 155 and hence the midodrine was held. Hence we will decrease the patient midodrine to 5 mg p.o. 3 times daily. The patient tolerating Entresto and Coreg. 18. DEPRESSION: Will continue patient's Prozac to 20 mg p.o. twice daily. Medications reviewed. Medical regimen management plan discussed with the patient's daughter. Medical decision making is now again of high complexity. 40 minutes spent with patient more than 50% of time spent in direct patient care. I have spoken to the patient's daughter Ms. Edith Phillips about the change in plans of the patient will not be transferred to alf today. We will watch the patient for the next 48 hours and if stable will transfer him to [facility] on Sunday. Based on my medical assessment, after consideration of the patient's comorbidities, presenting symptoms, or acuity I expect that the services needed warrant INPATIENT care.: Yes I certify that my determination is in accordance with my understanding of Medicare's requirements for reasonable and necessary INPATIENT services [42 CFR 412.3e].: Yes Medical Necessity: Significant Comorbidiites Make Outpatient Treatment Too Risky, Need Close Monitoring Due to Risk of Patient Decompensation, Risk of Complication if Not Cared For in Hospital, Risk of Diagnosis Which Will Require Inpatient Eval/Care/Monitoring.
[2020-01-24] MEDS: SUCRALFATE 1 GM TABLET PO SCH (21:15)
[2020-01-25] MEDS: PANTOPRAZOLE SODIUM 40 MG TABLET.DR PO SCH ×2 (06:24→17:19)
[2020-01-25 07:01] LABS: HEMOGLOBIN 10.5 g/dL (13.5-17.0); MEAN CORPUSCULAR HEMOGLOBIN 31.9 pg (27.0-33.4); MEAN CORPUSCULAR HGB CONC 34.9 g/dL (32.0-36.0); MEAN CORPUSCULAR VOLUME 91 fl (80-97); RED BLOOD COUNT 3.29 10^6/uL (4.35-5.55); RED CELL DISTRIBUTION WIDTH 16.1 % (11.5-14.0)
[2020-01-25 07:36] LABS: BLOOD UREA NITROGEN 42 mg/dL (7-20); CALCIUM 7.7 mg/dL (8.4-10.2); CARBON DIOXIDE 28 mmol/L (22-30); CHLORIDE 100 mmol/L (98-107); POTASSIUM 4.3 mmol/L (3.6-5.0)
[2020-01-25 07:40] LABS: ANION GAP 2 (5-19)
[2020-01-25 07:41] LABS: GLUCOSE 67 mg/dL (75-110)
[2020-01-25] MEDS: SUCRALFATE 1 GM TABLET PO SCH ×4 (07:49→21:58)
[2020-01-25 07:56] LABS: PLATELET COUNT 96 10^3/uL (150-450)
[2020-01-25] MEDS: MULTIVITS W-MIN/IRON SOLN 60 ML PO SCH (09:59)
[2020-01-25] MEDS: FLUOXETINE HCL 20 MG CAPSULE PO SCH ×2 (10:03→21:58)
[2020-01-25] MEDS: FUROSEMIDE 20 MG TABLET PO SCH (10:03)
[2020-01-25] MEDS: CARVEDILOL 6.25 MG TABLET PO SCH ×2 (10:03→21:58)
[2020-01-25] MEDS: SACUBITRIL/VALSARTAN 49 MG/51 MG TABLET PO SCH ×2 (10:03→21:58)
[2020-01-25] MEDS: MIDODRINE HCL 5 MG TABLET PO SCH ×3 (10:03→17:19)
[2020-01-25] MEDS: ENOXAPARIN SODIUM INJ 30 MG/0.3 ML DISP.SYRIN SUBCUT SCH (10:04)
[2020-01-25] MEDS: NICOTINE 14 MG/24 HR PATCH.TD24 TD SCH (10:04)
[2020-01-25] MEDS: NORMAL SALINE 10 ML SDV (SCHEDULED) IV SCH ×2 (10:04→22:02)
[2020-01-25] MEDS: ONDANSETRON HCL INJ/PF 4 MG/2 ML SDV IV PRN (20:08)
--- NOTE | 2020-01-25 22:59 | Progress Note ---
Provider Note Provider Note: CARDIOLOGY PROGRESS NOTE by Dr. Alicia Brizuela on 01/25/2020. SUBJECTIVE: The patient feels stronger. He denies any chest pain discomfort. He states that his dizziness is periodic. He is able to sit up in bed without dizziness. He has no further diarrhea, but his stool occult blood is still positive. He denies any anginal symptoms. There is no PND orthopnea shortness of breath or leg edema. There is no palpitations. There is no TIA CVA symptoms. There is no firing of his AICD. There is no arrhythmias seen on the monitor. We will repeat the patient's Covid testing in anticipation of transferring the patient to a [facility] facility on Sunday. PHYSICAL EXAMINATION: The patient appears to be chronically ill and slightly malnourished. This is improved. He does not appear to be emaciated anymore. Selected Entries 01/25/20 12:00 Temperature 98.1 F Temperature Oral Source Pulse Rate 79 Respiratory 18 Rate Blood Pressure 108/62 [Right Upper Arm] Blood Pressure 77 Mean [Right Upper Arm] Blood Pressure Supine Position [Right Upper Arm] O2 Sat by Pulse 98 Oximetry Oxygen Delivery Room Air Method ( includes room air) HEAD: Is atraumatic normocephalic. EYES: Pupils are equal round regular reactive to light and accommodation. Extraocular movements are normal. There is no conjunctival pallor. There is no scleral icterus. EARS: Tympanic membranes are intact. External auditory canals are clear. NOSE: There is no d eviated nasal septum. There is no inflammation of the nasal mucous membrane. MOUTH: Mucous membranes of mouth are dry tongue is still dry. THROAT: There is no redness of the oropharynx. There is no exudates. 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 There is no catie-care ecchymosis. NECK: Supple. There is no JVD present. Carotids are equal there is no bruit. There is no lymphadenopathy. There is no goiter. There is no accessory muscle respiration use. Trachea central. LUNGS: Shows diminished air entry prolonged expiration there is bibasilar rales of CHF. There is no rhonchi or wheezing. There is no chest wall tenderness on palpation. On palpation there is hyperresonance. There is no bibasilar rales of heart failure. HEART: S1-S2 is heard. There is no S3 gallop. There is no S4 gallop there is systolic murmur left sternal border and the apex there is no rub. ABDOMEN: Soft. There is no hepatosplenomegaly. Bowel sounds are normal. There is no hepatosplenomegaly. EXTREMITIES: There is diminished bilateral femoral pulses with bruits. 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 He has bilateral femoral bruits present. Leg pulses are diminished. There is no pedal edema bilaterally. There is no DVT or cellulitis. There is no cyanosis or clubbing. 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 PSYCHIATRIC: Patient is a patient judgment insight are intact, and his affect is normal. The patient's 24-hour total intake was 1204 and now. 24-hour total output is 1440 and now. Labs- All tests 24 hr 01/25/20 01/25/20 01/25/20 06:32 06:32 14:50 WBC 5.0 RBC 3.29 L Hgb 10.5 L Hct 30.0 L MCV 91 MCH 31.9 MCHC 34.9 RDW 16.1 H Plt Count 96 L Sodium 129.8 L Potassium 4.3 Chloride 100 Carbon Dioxide 28 Anion Gap 2 L BUN 42 H Creatinine 1.03 Est GFR ( Amer) > 60 Est GFR (MDRD) Non-Af > 60 Glucose 67 L Calcium 7.7 L Stool Occult Blood POSITIVE COVID-19 Source 01/25/20 16:00 WBC RBC Hgb Hct MCV MCH MCHC RDW Plt Count Sodium Potassium Chloride Carbon Dioxide Anion Gap BUN Creatinine Est GFR ( Amer) Est GFR (MDRD) Non-Af Glucose Calcium Stool Occult Blood COVID-19 Source See comment IMPRESSION/RECOMMENDATION: 1. Upper GI bleeding: The patient's stool continues to be Hemoccult positive but the hemoglobin is stable. Hence we will continue the patient's Carafate and pantoprazole. We will also get a Covid testing for possible transfer the patient to [facility] facility on Sunday. 2. Acute anemia: The patient's hemoglobin is stable at 10.5. 3. Acute on chronic systolic heart failure.: This is well compensated. We will continue the patient's Lasix, Entresto and beta-abhishek. 4. Acute nonoliguric renal failure. Patient with good urine output. Partly the BUN/creatinine secondary to patient's absorption of blood from his GI tract the patient is creatinine is 1.03 and his GFR is greater than 60. 5. Duodenal ulcer with bleeding. Active bleeding probably stop, but there is still some evidence of slow oozing. We will continue to watch the patient clinically. 6. Severe mitral regurgitation, and severe tricuspid regurgitation and severe pulmonary hypertension. 7. DIlated cardiomyopathy and ischemic cardiomyopathy with severely reduced LV ejection fraction. Continue Coreg and Entresto. 8.. COPD: At present no acute exacerbation. Continue treatment to Xopenex treatment 9. Coronary artery disease. History of old myocardial infarction and history of coronary bypass graft surgery. No anginal symptoms. Continue anti-CAD medication, as being down now. Due to her drop in blood pressure is nitrates has been discontinued. We will start with a later date. 10. History of hypertension: Blood pressure has improved. The patient is still on midodrine 5 mg p.o. 3 times daily to enable us to give him beta-abhishek and Entresto. 11. History of AICD: No firing of his AICD recently. 12. Peripheral vascular disease: History of past history of left femoropopliteal bypass surgery. Abdominal ultrasound shows no evidence of abdominal aortic aneurysm. Findings of the CT scan noted. There is no acute limb ischemia seen at present. 13 History of pancytopenia. Note that the platelets are coming up. 14. Tobacco abuse disorder. We will continue the patient on NicoDerm patch 15. History of facial skin cancer. The patient will be requiring radiation treatment as per Dr. Domingo, radiation oncologist in [place]. 16. Hypotension: This is resolved. Though the patient is still requiring midodrine to 5 mg p.o. 3 times daily to keep his blood pressure up. The patient tolerating Entresto and Coreg, with midodrine on board. 17. DEPRESSION: Will continue patient's Prozac to 20 mg p.o. twice daily. Medications reviewed. Medical regimen management plan discussed with the patient's daughter. Medical decision making is now again of high complexity. 40 minutes spent with patient more than 50% of time spent in direct patient care. We will watch the patient for the next 48 hours and if stable will transfer him to [facility] facility on Sunday Based on my medical assessment, after consideration of the patient's comorbidities, presenting symptoms, or acuity I expect that the services needed warrant INPATIENT care.: Yes I certify that my determination is in accordance with my understanding of Medicare's requirements for reasonable and necessary INPATIENT services [42 CFR 412.3e].: Yes Medical Necessity: Significant Comorbidiites Make Outpatient Treatment Too Risky, Need Close Monitoring Due to Risk of Patient Decompensation, Risk of Complication if Not Cared For in Hospital, Risk of Diagnosis Which Will Require Inpatient Eval/Care/Monitoring.
[2020-01-26] MEDS: PANTOPRAZOLE SODIUM 40 MG TABLET.DR PO SCH ×2 (05:25→17:40)
[2020-01-26 06:43] LABS: HEMATOCRIT 28.7 % (37.9-51.0); MEAN CORPUSCULAR HEMOGLOBIN 31.9 pg (27.0-33.4); MEAN CORPUSCULAR HGB CONC 34.7 g/dL (32.0-36.0); MEAN CORPUSCULAR VOLUME 92 fl (80-97); PLATELET COUNT 102 10^3/uL (150-450); RED BLOOD COUNT 3.13 10^6/uL (4.35-5.55); RED CELL DISTRIBUTION WIDTH 15.5 % (11.5-14.0); WHITE BLOOD COUNT 5.5 10^3/uL (4.0-10.5)
[2020-01-26] MEDS: SACUBITRIL/VALSARTAN 49 MG/51 MG TABLET PO SCH ×2 (09:59→21:34)
[2020-01-26] MEDS: FUROSEMIDE 20 MG TABLET PO SCH (09:59)
[2020-01-26] MEDS: FLUOXETINE HCL 20 MG CAPSULE PO SCH ×2 (09:59→21:34)
[2020-01-26] MEDS: CARVEDILOL 6.25 MG TABLET PO SCH ×2 (09:59→21:34)
[2020-01-26] MEDS: MIDODRINE HCL 5 MG TABLET PO SCH ×3 (09:59→17:40)
[2020-01-26] MEDS: SUCRALFATE 1 GM TABLET PO SCH ×4 (09:59→21:36)
[2020-01-26] MEDS: NORMAL SALINE 10 ML SDV (SCHEDULED) IV SCH ×2 (10:00→21:35)
[2020-01-26] MEDS: ENOXAPARIN SODIUM INJ 30 MG/0.3 ML DISP.SYRIN SUBCUT SCH (10:00)
[2020-01-26] MEDS: MULTIVITS W-MIN/IRON SOLN 60 ML PO SCH (10:01)
--- NOTE | 2020-01-26 17:37 | Progress Note ---
Provider Note Provider Note: CARDIOLOGY PROGRESS NOTE by Dr. Alicia Dooley on 01/26/2020. SUBJECTIVE: The patient states he feels much stronger. He sat up for about an hour in the chair which is remarkable improvement. He has no chest pain or discomfort. There is no shortness of breath. The patient has not had any further black stools. There is no abdominal pain. There is no nausea vomiting. He is tolerating his diet very well. There is no arrhythmias on the monitor. There is no firing of his AICD. His hemoglobin has slightly dropped to 10 today. PHYSICAL EXAMINATION: The patient appears to be chronically ill but appears to be slightly better nourished he does not appear to be emaciated at present. Selected Entries 01/26/20 11:41 Temperature 98.7 F Temperature Oral Source Pulse Rate 71 Respiratory 16 Rate Blood Pressure 133/67 H Blood Pressure 89 Mean BP Location Right Arm BP Position Supine O2 Sat by Pulse 93 Oximetry HEAD: Is atraumatic normocephalic. EYES: Pupils are equal round regular reactive to light and accommodation. Extraocular movements are normal. There is no conjunctival pallor. There is no scleral icterus. EARS: Tympanic membranes are intact. External auditory canals are clear. NOSE: There is no deviated nasal septum. There is no inflammation of the nasal mucous membrane. MOUTH: Mucous membranes of mouth are dry tongue is still dry. THROAT: There is no redness of the oropharynx. There is no exudates. 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 There is no catie-care ecchymosis. NECK: Supple. There is no JVD present. Carotids are equal there is no bruit. There is no lymphadenopathy. There is no goiter. There is no accessory muscle respiration use. Trachea central. LUNGS: Shows diminished air entry prolonged expiration there is bibasilar rales of CHF. There is no rhonchi or wheezing. There is no chest wall tenderness on palpation. On palpation there is hyperresonance. There is no bibasilar rales of heart failure. HEART: S1-S2 is heard. There is no S3 gallop. There is no S4 gallop there is systolic murmur left sternal border and the apex there is no rub. ABDOMEN: Soft. There is no hepatosplenomegaly. Bowel sounds are normal. There is no hepatosplenomegaly. EXTREMITIES: There is diminished bilateral femoral pulses with bruits. 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 He has bilateral femoral bruits present. Leg pulses are diminished. There is no pedal edema bilaterally. There is no DVT or cellulitis. There is no cyanosis or clubbing. 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 PSYCHIATRIC: Patient is a patient judgment insight are intact, and his affect is normal. The patient's 24-hour total intake was 920 and now. 24-hour total output is 1140 and now. Labs- All tests 24 hr 01/26/20 05:30 WBC 5.5 RBC 3.13 L Hgb 10.0 L Hct 28.7 L MCV 92 MCH 31.9 MCHC 34.7 RDW 15.5 H Plt Count 102 L Chest X-Ray 12/24/19 19:50 IMPRESSION: New right basilar airspace consolidative change, suspicious for pneumonia. Head CT 12/24/19 20:48 IMPRESSION: 1. No acute intracranial findings. 2. Senescent changes with chronic microvascular ischemia and old lacunar infarcts. Chest X-Ray 12/28/19 00:00 IMPRESSION: 1. New right pleural effusion since 12/24/2019, with worsening right pulmonary infiltrate, likely pneumonia. Chest X-Ray 12/29/19 00:00 IMPRESSION: Right internal jugular catheter as described. Improving right lower lobe pneumonia. GI Bleed Scan Nuclear Medicine 01/04/20 00:00 IMPRESSION: EVIDENCE OF ACTIVE GASTROINTESTINAL BLEEDING. POINT OF ORIGIN IS IN THE RIGHT UPPER QUADRANT. Chest X-Ray 01/05/20 06:00 IMPRESSION: Improved but persistent patchy right basilar airspace disease and trace effusion. Abdomen Ultrasound 01/07/20 00:00 IMPRESSION: NO ABDOMINAL AORTIC ANEURYSM. Abdomen/Pelvis CT 01/12/20 16:00 IMPRESSION: Wall thickening in the rectosigmoid consistent with colitis. There is an aortobifemoral graft which appears patent. However the left superficial femoral artery appears occluded in the visualized segments of the proximal thigh. Recommend correlation with CTA or arterial Doppler. This finding was discussed with Dr Alicia Brizuela @ 2003 Subcutaneous and intra-abdominal stranding which may reflect anasarca Renal cysts with marked atrophy of the left kidney Right basilar atelectasis and pleural effusion Additional chronic changes as above GI Bleed Scan Nuclear Medicine 01/23/20 00:00 IMPRESSION: NORMAL RADIONUCLIDE GASTROINTESTINAL BLEEDING STUDY. ACTIVE BLEEDING NOTED ON PRIOR STUDY HAS RESOLVED. IMPRESSION/RECOMMENDATION: 1. Upper GI bleeding: The patient's stool continues to be Hemoccult positive but the hemoglobin is stable. Hence we will continue the patient's Carafate and pantoprazole. We will also get a Covid testing for possible transfer the patient to detention facility on Sunday or Sunday. 2. Acute anemia: The patient's hemoglobin is 10. We will check anemia studies to see if the patient is iron and B12 and folate supplementation. 3. Acute on chronic systolic heart failure.: This is well compensated. We will continue the patient's Lasix, Entresto and beta-abhishek. 4. Acute nonoliguric renal failure. Patient with good urine output. Partly the BUN/creatinine secondary to patient's absorption of blood from his GI tract the patient is creatinine is 1.03 and his GFR is greater than 60. 5. Duodenal ulcer with bleeding. Active bleeding probably stop, but there is still some evidence of slow oozing. We will continue to watch the patient clinically. 6. Severe mitral regurgitation, and severe tricuspid regurgitation and severe pulmonary hypertension. 7. DIlated cardiomyopathy and ischemic cardiomyopathy with severely reduced LV ejection fraction. Continue Coreg and Entresto. 8.. COPD: At present no acute exacerbation. Continue treatment to Xopenex treatment 9. Coronary artery disease. History of old myocardial infarction and history of coronary bypass graft surgery. No anginal symptoms. Continue anti-CAD medication, as being down now. Due to her drop in blood pressure is nitrates has been discontinued. We will start with a later date. 10. History of hypertension: Blood pressure has improved. The patient is still on midodrine 5 mg p.o. 3 times daily to enable us to give him beta-abhishek and Entresto. 11. History of AICD: No firing of his AICD recently. 12. Peripheral vascular disease: History of past history of left femoropopliteal bypass surgery. Abdominal ultrasound shows no evidence of abdominal aortic aneurysm. Findings of the CT scan noted. There is no acute li mb ischemia seen at present. 13 History of pancytopenia. Note that the platelets are coming up. 14. Tobacco abuse disorder. We will continue the patient on NicoDerm patch 15. History of facial skin cancer. The patient will be requiring radiation treatment as per Dr. Domingo, radiation oncologist in [place]. 16. Hypotension: This is resolved. Though the patient is still requiring midodrine to 5 mg p.o. 3 times daily to keep his blood pressure up. The patient tolerating Entresto and Coreg, with midodrine on board. 17. DEPRESSION: Will continue patient's Prozac to 20 mg p.o. twice daily. Medications reviewed. Medical regimen management plan discussed with the patient's daughter. Medical decision making is now of moderate complexity. 40 minutes spent with patient more than 50% of time spent in direct patient care. We will watch the patient for the next 48 hours and if stable will transfer him to detention facility on Sunday Based on my medical assessment, after consideration of the patient's comorbidities, presenting symptoms, or acuity I expect that the services needed warrant INPATIENT care.: Yes I certify that my determination is in accordance with my understanding of Medicare's requirements for reasonable and necessary INPATIENT services [42 CFR 412.3e].: Yes Medical Necessity: Significant Comorbidiites Make Outpatient Treatment Too Risky, Need Close Monitoring Due to Risk of Patient Decompensation, Risk of Complication if Not Cared For in Hospital, Risk of Diagnosis Which Will Require Inpatient Eval/Care/Monitoring.
[2020-01-27] MEDS: PANTOPRAZOLE SODIUM 40 MG TABLET.DR PO SCH ×2 (06:22→16:56)
[2020-01-27] MEDS: ENOXAPARIN SODIUM INJ 30 MG/0.3 ML DISP.SYRIN SUBCUT SCH (09:04)
[2020-01-27] MEDS: FUROSEMIDE 20 MG TABLET PO SCH (09:27)
[2020-01-27] MEDS: SUCRALFATE 1 GM TABLET PO SCH ×4 (09:27→21:30)
[2020-01-27] MEDS: CARVEDILOL 6.25 MG TABLET PO SCH ×2 (09:27→21:30)
[2020-01-27] MEDS: SACUBITRIL/VALSARTAN 49 MG/51 MG TABLET PO SCH ×2 (09:27→21:30)
[2020-01-27] MEDS: FLUOXETINE HCL 20 MG CAPSULE PO SCH ×2 (09:27→21:30)
[2020-01-27] MEDS: MIDODRINE HCL 5 MG TABLET PO SCH ×3 (09:27→17:00)
[2020-01-27] MEDS: NORMAL SALINE 10 ML SDV (SCHEDULED) IV SCH ×2 (09:28→22:00)
[2020-01-27] MEDS: MULTIVITS W-MIN/IRON SOLN 60 ML PO SCH (09:29)
[2020-01-27 13:07] LABS: ABSOLUTE RETICS # 0.039 10^6/uL (0.028-0.122); RETICULOCYTE COUNT (AUTO) 1.16 % (0.66-2.85)
[2020-01-27 13:28] LABS: IRON(TIBC) 32.1 ug/dL (49-181)
[2020-01-27 14:36] LABS: FOLATE 6.14 ng/mL (>2.76)
[2020-01-27] MEDS: FERROUS SULFATE 325 MG TABLET PO SCH (16:56)
--- NOTE | 2020-01-27 22:29 | Progress Note ---
Provider Note Provider Note: CARDIOLOGY PROGRESS NOTE by Dr. Alicia Brizuela on 01/27/2020. SUBJECTIVE: The patient is stronger he is eating well. He has been able to sit up in the chair for more than an hour. He also with the help of physical therapy was able to walk in the room. He is making definite progress. He denies any chest pain or discomfort. There is no arrhythmias seen on the monitor. There is no firing of his AICD. The patient has no angina. There is no shortness of breath. There is no PND orthopnea or leg edema. PHYSICAL EXAMINATION: Patient appears to be chronically ill. In no acute distress Selected Entries 01/27/20 16:44 Temperature 98.4 F Temperature Oral Source Pulse Rate 66 Respiratory 16 Rate Blood Pressure 126/58 H Blood Pressure 80 Mean BP Location Right Arm BP Position Supine O2 Sat by Pulse 93 Oximetry Oxygen Delivery Room Air Method HEAD: Is atraumatic normocephalic. EYES: Pupils are equal round regular reactive to light and accommodation. Extraocular movements are normal. There is no conjunctival pallor. There is no scleral icterus. EARS: Tympanic membranes are intact. External auditory canals are clear. NOSE: There is no deviated nasal septum. There is no inflammation of the nasal mucous membrane. MOUTH: Mucous membranes of mouth are dry tongue is still dry. THROAT: There is no redness of the oropharynx. There is no exudates. 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 There is no catie-care ecchymosis. NECK: Supple. There is no JVD present. Carotids are equal there is no bruit. There is no lymphadenopathy. There is no goiter. There is no accessory muscle respiration use. Trachea central. LUNGS: Shows diminished air entry prolonged expiration there is bibasilar rales of CHF. There is no rhonchi or wheezing. There is no chest wall tenderness on palpation. On palpation there is hyperresonance. There is no bibasilar rales of heart failure. HEART: S1-S2 is heard. There is no S3 gallop. There is no S4 gallop there is systolic murmur left sternal border and the apex there is no rub. ABDOMEN: Soft. There is no hepatosplenomegaly. Bowel sounds are normal. There is no hepatosplenomegaly. EXTREMITIES: There is diminished bilateral femoral pulses with bruits. 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 He has bilateral femoral bruits present. Leg pulses are diminished. There is no pedal edema bilaterally. There is no DVT or cellulitis. There is no cyanosis or clubbing. 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 PSYCHIATRIC: Patient is a patient judg ment insight are intact, and his affect is normal. The patient's 24-hour total intake was 956 ml and 24-hour total output is 1075 ml. Labs- All tests 24 hr 01/25/20 01/27/20 01/27/20 16:00 05:00 12:36 Reticulocyte # 0.039 Retic Count (auto) 1.16 Iron TIBC % Saturation Ferritin Vitamin B12 Folate Stool Occult Blood POSITIVE COVID-19 ([facility]) Not Detected 01/27/20 12:36 Reticulocyte # Retic Count (auto) Iron 32.1 L TIBC 236 L % Saturation 14 Ferritin 338.00 Vitamin B12 906.0 Folate 6.14 Stool Occult Blood COVID-19 ([facility]) Chest X-Ray 12/24/19 19:50 IMPRESSION: New right basilar airspace consolidative change, suspicious for pneumonia. Head CT 12/24/19 20:48 IMPRESSION: 1. No acute intracranial findings. 2. Senescent changes with chronic microvascular ischemia and old lacunar infarcts. Chest X-Ray 12/28/19 00:00 IMPRESSION: 1. New right pleural effusion since 12/24/2019, with worsening right pulmonary infiltrate, likely pneumonia. Chest X-Ray 12/29/19 00:00 IMPRESSION: Right internal jugular catheter as described. Improving right lower lobe pneumonia. GI Bleed Scan Nuclear Medicine 01/04/20 00:00 IMPRESSION: EVIDENCE OF ACTIVE GASTROINTESTINAL BLEEDING. POINT OF ORIGIN IS IN THE RIGHT UPPER QUADRANT. Chest X-Ray 01/05/20 06:00 IMPRESSION: Improved but persistent patchy right basilar airspace disease and trace effusion. Abdomen Ultrasound 01/07/20 00:00 IMPRESSION: NO ABDOMINAL AORTIC ANEURYSM. Abdomen/Pelvis CT 01/12/20 16:00 IMPRESSION: Wall thickening in the rectosigmoid consistent with colitis. There is an aortobifemoral graft which appears patent. However the left superficial femoral artery appears occluded in the visualized segments of the proximal thigh. Recommend correlation with CTA or arterial Doppler. This finding was discussed with Dr Alicia Brizuela @ 2003 Subcutaneous and intra-abdominal stranding which may reflect anasarca Renal cysts with marked atrophy of the left kidney Right basilar atelectasis and pleural effusion Additional chronic changes as above GI Bleed Scan Nuclear Medicine 01/23/20 00:00 IMPRESSION: NORMAL RADIONUCLIDE GASTROINTESTINAL BLEEDING STUDY. ACTIVE BLEEDING NOTED ON PRIOR STUDY HAS RESOLVED. IMPRESSION/RECOMMENDATION: 1. Upper GI bleeding: The patient's stool continues to be Hemoccult positive but the hemoglobin is stable. Hence we will continue the patient's Carafate and pantoprazole. Patient repeat Covid testing is negative. We will transfer the patient to shelter facility tomorrow. 2. Acute anemia: The patient's hemoglobin is 10 on 01/26/2020. The patient B12 folate levels are normal. His iron is low. Hence we will start the patient on iron supplementation. 3. Acute on chronic systolic heart failure.: This is well compensated. We will continue the patient's Lasix, Entresto and beta-abhishek. 4. Acute nonoliguric renal failure. Patient with good urine output. Partly the BUN/creatinine secondary to patient's absorption of blood from his GI tract the patient is creatinine is 1.03 and his GFR is greater than 60. 5. Duodenal ulcer with bleeding. Active bleeding probably stop, but there is still some evidence of slow oozing. We will continue to watch the patient clinically. 6. Severe mitral regurgitation, and severe tricuspid regurgitation and severe pulmonary hypertension. 7. DIlated cardiomyopathy and ischemic cardiomyopathy with severely reduced LV ejection fraction. Continue Coreg and Entresto. 8.. COPD: At present no acute exacerbation. Continue treatment to Xopenex treatment 9. Coronary artery disease. History of old myocardial infarction and history of coronary bypass graft surgery. No anginal symptoms. Continue anti-CAD medication, as being down now. Due to her drop in blood pressure is nitrates has been discontinued. We will start with a later date. 10. History of hypertension: Blood pressure has improved. The patient is still on midodrine 5 mg p.o. 3 times daily to enable us to give him beta-abhishek and Entresto. 11. History of AICD: No firing of his AICD recently. 12. Peripheral vascular disease: History of past history of left femoropopliteal bypass surgery. Abdominal ultrasound shows no evidence of ab dominal aortic aneurysm. Findings of the CT scan noted. There is no acute limb ischemia seen at present. 13 History of pancytopenia. Note that the platelets are coming up. 14. Tobacco abuse disorder. We will continue the patient on NicoDerm patch 15. History of facial skin cancer. The patient will be requiring radiation treatment as per Dr. Domingo, radiation oncologist in [place]. 16. Hypotension: This is resolved. Though the patient is still requiring midodrine to 5 mg p.o. 3 times daily to keep his blood pressure up. The patient tolerating Entresto and Coreg, with midodrine on board. 17. DEPRESSION: Will continue patient's Prozac to 20 mg p.o. twice daily. Medications reviewed. Medical regimen management plan discussed with the patient's daughter. Medical decision making is now of moderate complexity. 40 minutes spent with patient more than 50% of time spent in direct patient care. We will watch the patient for the next 48 hours and if stable will transfer him to shelter facility tomorrow. Surgical intact the patient's daughter Ms. Edith Phillips. She was unavailable message left in the answering machine.
[2020-01-28] MEDS: PANTOPRAZOLE SODIUM 40 MG TABLET.DR PO SCH (05:22)
[2020-01-28] MEDS: ENOXAPARIN SODIUM INJ 30 MG/0.3 ML DISP.SYRIN SUBCUT SCH (09:19)
[2020-01-28] MEDS: FERROUS SULFATE 325 MG TABLET PO SCH (09:40)
[2020-01-28] MEDS: SUCRALFATE 1 GM TABLET PO SCH ×2 (09:41→12:04)
[2020-01-28] MEDS: SACUBITRIL/VALSARTAN 49 MG/51 MG TABLET PO SCH (09:41)
[2020-01-28] MEDS: MIDODRINE HCL 5 MG TABLET PO SCH ×2 (09:41→13:58)
[2020-01-28] MEDS: FLUOXETINE HCL 20 MG CAPSULE PO SCH (09:41)
[2020-01-28] MEDS: CARVEDILOL 6.25 MG TABLET PO SCH (09:41)
[2020-01-28] MEDS: MULTIVITS W-MIN/IRON SOLN 60 ML PO SCH (09:42)
[2020-01-28] MEDS: FUROSEMIDE 20 MG TABLET PO SCH (09:42)
[2020-01-28] MEDS: NORMAL SALINE 10 ML SDV (SCHEDULED) IV SCH (09:45)
--- NOTE | 2020-01-28 11:33 | PDOC DISCHARGE SUMMARY ---
Impression - Admit/DC Date/PCP Admission Date/Primary Care Provider: 12/24/19 23:[facility] Discharge Date: 01/28/20 - Patient be transferred to fpc facility [[facility]] - Discharge Diagnosis (1) Pulmonary hypertension, moderate to severe Is this a current diagnosis for this admission?: Yes (2) Acute GI hemorrhage Is this a current diagnosis for this admission?: Yes (3) Acute on chronic end-stage systolic heart failure Is this a current diagnosis for this admission?: Yes (4) Anemia due to GI blood loss Is this a current diagnosis for this admission?: Yes (5) Duodenal ulcer Is this a current diagnosis for this admission?: Yes (6) Failure to thrive syndrome, adult Is this a current diagnosis for this admission?: Yes (7) Generalized weakness Is this a current diagnosis for this admission?: Yes (8) Hypotension Is this a current diagnosis for this admission?: Yes (9) Physical deconditioning Is this a current diagnosis for this admission?: Yes (10) Anemia Is this a current diagnosis for this admission?: Yes (11) CAD (coronary artery disease) Is this a current diagnosis for this admission?: Yes (12) COPD (chronic obstructive pulmonary disease) Is this a current diagnosis for this admission?: Yes (13) Dyslipidemia Is this a current diagnosis for this admission?: Yes (14) HTN (hypertension) Is this a current diagnosis for this admission?: Yes (15) Pancytopenia Is this a current diagnosis for this admission?: Yes (16) Tobacco dependence Is this a current diagnosis for this admission?: Yes - Assessment Summary: LORIE PHILLIPS is a 69 year old male with PMH of COPD, CAD, HTN, HLD, DM2, PAD s/p recent left femoropopliteal bypass, tobacco abuse, dilated cardiomyopathy and ischemic cardiomyopathy with severely reduced LV ejection fraction complicated by RV failure, cardiorenal syndrome and 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 NYHA class 4 acute on chronic right and left-sided congestive heart failure: TTE on this admission is concerning for a further reduced LV EF of <10% (based on my personal viewing of the TTE images - formal read is pending) and AICD interrogation shows only a single short episode of untreated NSVT. Mr. Phillips has severe, NYHA Class 4 heart failure and is experiencing symptoms of SOB even while at rest. He is severely limited in his ability to carry out physical activity. Symptoms have become so severe that he has essentially become bed- bound in the past month. Cardiology was consulted and felt that he did not need another ischemic work-up as he has recently undergone LHC and recommended starting inotropic support for diuresis. He has been admitted to the [facility]. - he has a dual chamber [employer] ICD which is MRI-compatible - cardiology, Dr. 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 Unfortunately, he has felt too weak to be able to go to his appointments regularly and he has thus not started radiation yet. COPD (chronic obstructive pulmonary disease): does not appear to be in acute exacerbation at this time. Continue DuoNebs, BiPAP when sleeping, LABA, ICS, flutter valve and incentive spirometry. 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 He has been evaluated by hematology during past hospitalizations here. Denies any hematemesis, hemoptysis, noseblee d, easy bleeding, hematuria, melena or hematochezia. History of Non-Adherence to Medical Therapy: He tells me that he has no transportation or family support in [place], which has been a barrier to receiving healthcare. Generalized Weakness: most likely due to severe congestive heart failure. - PT and OT consulted - SW consulted, will likely need SNF on discharge - fall precautions Weight loss, Failure to Thrive in Adult: most likely related to CHF, but can not rule out progression of his SCC given high risk characteristics and lack of follow up with oncology. - PLASTICS SCIENTIST evaluation was normal this hospitalization - he will need close outpatient follow up with Oncology upon discharge for re- staging and radiation, if appropriate DVT ppx: held due to thrombocytopenia (plt <50K) Code Status: DNR/DNI - Additional Information Resuscitation Status: Do Not Resuscitate Discharge Diet: Cardiac - Premier extrapleural snf right Discharge Activity: Activity As Tolerated, Balance Activity w/Rest, Supervised Activity - Patient is needs assistance to be able to sit up in chair. Needs physiotherapy to help with increasing patient's ambulatory status., Weigh Daily Referrals: [facility] [Primary Care Provider] - Follow up as needed (Patient has to make own appointment. [facility] does not allow anyone but patient to make appointment.) Prescriptions: Rosuvastatin Calcium [Crestor] 20 mg PO QHS 30 Days #30 tab Nitroglycerin [Nitrostat 0.4 mg (1/150 Gr) Tabs 25/Bottle] 0.4 mg SL Q5MP PRN 30 Days #30 bottle PRN Reason: For Chest Pain Sucralfate [Carafate 1 gm Tablet] 1 gm PO ACHS 30 Days #120 tablet Multivits W-Min/Ferrous Gluc [Certavite Multivit/Minerals/Iron Soln] 15 ml PO DAILY 30 Days #1 ml Sacubitril/Valsartan [Entresto 49 mg/51 mg Tablet] 1 tab PO Q12 30 Days #60 tablet Ferrous Sulfate [Feosol 325 mg Tablet] 975 mg PO DAILY 90 Days #90 tablet Isosorbide Mononitrate [Imdur 30 mg Tablet.er] 30 mg PO DAILY 30 Days #30 tab Furosemide [Lasix 20 mg Tablet] 20 mg PO DAILY 30 Days #30 tablet Midodrine HCl [Proamatine 5 mg Tablet] 5 mg PO TID 30 Days #90 tablet Pantoprazole Sodium [Protonix [address] Tablet] 40 mg PO BID@0600,1700 30 Days #60 tablet.dr Fluoxetine HCl [Prozac 20 mg Capsule] 20 mg PO Q12 30 Days #60 capsule MDD 2 Tiotropium [place] [Spiriva Handihaler 5 Cap/Kit (18 Mcg/Cap)] 1 cap IH DAILY 30 Days #30 kit Tiotropium Br/Olodaterol HCl [Stiolto Respimat Inhal Porter] 2 puff IH DAILY 30 Days #1 inhaler Levalbuterol HCl [Xopenex Neb 0.63 mg/3 ml Ampul] 0.63 mg NEB RTQ6HP PRN 30 Days #120 vial.neb PRN Reason: Home Medications: Carvedilol [Coreg 6.25 mg Tablet] 6.25 mg PO Q12 #0 tablet 01/28/20 Ferrous Sulfate [Feosol 325 mg Tablet] 975 mg PO DAILY 90 Days #90 tablet 01/28/20 Fluoxetine HCl [Prozac 20 mg Capsule] 20 mg PO Q12 30 Days #60 capsule MDD 2 01/28/20 Furosemide [Lasix 20 mg Tablet] 20 mg PO DAILY 30 Days #30 tablet 01/28/20 Isosorbide Mononitrate [Imdur 30 mg Tablet.er] 30 mg PO DAILY 30 Days #30 tab 01/28/20 Levalbuterol HCl [Xopenex Neb 0.63 mg/3 ml Ampul] 0.63 mg NEB RTQ6HP PRN 30 Days #120 vial.neb 01/28/20 Midodrine HCl [Proamatine 5 mg Tablet] 5 mg PO TID 30 Days #90 tablet 01/28/20 Multivits W-Min/Ferrous Gluc [Certavite Multivit/Minerals/Iron Soln] 15 ml PO DAILY 30 Days #1 ml 01/28/20 Nitroglycerin [Nitrostat 0.4 mg (1/150 Gr) Tabs 25/Bottle] 0.4 mg SL Q5MP PRN 30 Days #30 bottle 01/28/20 Pantoprazole Sodium [Protonix [address] Tablet] 40 mg PO BID@0600,1700 30 Days #60 tablet.dr 01/28/20 Rosuvastatin Calcium [Crestor] 20 mg PO QHS 30 Days #30 tab 01/28/20 Sacubitril/Valsartan [Entresto 49 mg/51 mg Tablet] 1 tab PO Q12 30 Days #60 tablet 01/28/20 Sucralfate [Carafate 1 gm Tablet] 1 gm PO ACHS 30 Days #120 tablet 01/28/20 Tiotropium Br/Olodaterol HCl [Stiolto Respimat Inhal Porter] 2 puff IH DAILY 30 Days #1 inhaler 01/28/20 Tiotropium [place] [Spiriva Handihaler 5 Cap/Kit (18 Mcg/Cap)] 1 cap IH DAILY 30 Days #30 kit 01/28/20 History of Present Illiness History of Present Illness: LORIE PHILLIPS is a 69 year old male Hospital Course Hospital Course: The patient initially was admitted with severe fatigue and weakness. In spite of his LV dysfunction he was found to be dehydrated and was given gentle IV hydration. His echocardiogram done on 12/25/2019 showed LV ejection fraction less than 15%, with a left ventricle moderate cleat to severely dilated. There was severe global hypokinesis of the left ventricle. The right ventricle is mild to moderately dilated. The right ventricle systolic function is mild to moderately reduced. The right atrium is mild to moderately dilated. The left atrium was moderately dilated. There was severe amount of mitral regurgitation. There was aortic sclerosis without aortic stenosis there is no aortic regurgitation. There is severe amount of tricuspid regurgitation with severe pulmonary hypertension the right ventricle systolic pressure was 7275 mmHg. There is mild amount of pulmonary regurgitation. There was no pericardial effusion. There was an AICD lead in the RA in the RV. Subsequently the patient due to his low output was started on dobutamine and dopamine to keep his blood pressure up. He did fairly well on this. He was also thought to be depressed and started on antidepressant Prozac. This was initially started 20 mg p.o. daily and increased to 20 mg p.o. twice daily in the course of the patient's hospital stay. In view of the patient's severe pulmonary hypertension it was decided that the patient should be transferred to ICU for a trial of milrinone infusion. He had a central line placed already. His blood pressure dropped with milrinone. And he was later restarted on dobutamine. The patient on 01/03/2020 showed a drop in the hemoglobin and also patient had melanotic stools and also evidence of acute GI bleeding. He also has a history of pancytopenia and his platelets were in the 65-75,000 range. He was transfused 2 units of packed RBCs. Dr. Vila was consulted and he did an EGD and cauterized a bleeding ulcer. The patient on 01/03/2014 had again a drop in his hemoglobin and there was evidence of ongoing bleeding. He continues to receive blood transfusion. He is nuclear GI bleeding scan was positive for right upper q uadrant active bleeding. Dr. San was consulted and he did an endoscopy at the bedside in the ICU and cauterized a duodenal ulcer in the duodenal bulb which is bleeding. The patient the bleeding seems to have stopped. The patient continues to have diarrhea which is resistant to Imodium. He also had evidence of ongoing bleeding and also iron allergy nuclear GI bleeding scan on 01/13/2020 which was negative for an active GI bleed. In view of the ongoing occult positivity of the stool and the patient's drop in the hemoglobin. The patient received multiple blood transfusions. He received a total of 14 units of packed RBCs and 1 unit of platelets during the admission. On 01/13/2020 he again had endoscopy by Dr. San and had a another bleeding site at the prior duodenal bulb ulcer which is again cauterized. Although the patient did have positive occult blood there was no further evidence of acute GI bleed. His hemoglobin showed a slight decline but remained at around 10.5-10. The patient started eating and tolerating his diet and there is no further diarrhea or abdominal pain nausea or vomiting. In the course of the patient's hospital admission the patient was had several bouts of hypotension requiring dopamine. He is also started on midodrine at 10 mg p.o. 3 times daily which brought his blood pressure up and this helped us place the patient on Coreg 6.25 mg p.o. twice daily and also Entresto. He also received Lasix. He still felt very weak and was severely debilitated. But physical therapy had managed to get him up to sit in a chair for an hour and the patient did walk up to the chair with the help of physical therapy. He will need ongoing assistance for ambulation at the fpc facility. Throughout the course although he has severe COPD there was no symptoms of acute exacerbation of COPD. Although he had severely reduced LV ejection fraction there is no acute congestive heart failure symptoms or signs. He he had no anginal symptoms in spite of his CAD. His Imdur was restarted after being held due to low blood pressure in the past. There was no arrhythmias on the monitor and there was no firing of his AICD. The plan is to rehabilitate the patient fpc facility and subsequently possibly transfer to the assisted living. If the patient does progress to that stage we may consider relocating the patient to [place] where he can stay with, or near his daughter. Throughout the course the patient's daughter has been informed periodically of the patient's clinical condition is deterioration spells and also is positive progression. At present the patient is heart failure is compensated and the patient is stable to be transferred to fpc facility. Of note in addition to the patient being on pantoprazole he is also been started on sucralfate. Pantoprazole should be continued for at least 3 months and the sucralfate for at least a month. Also would recommend continue the patient's iron for 3 months since the patient's iron was low his B12 levels and folate levels were normal. In the course of the patient's hospitalization the patient's renal function had deteriorated and there was a significantly increased BUN most likely and a creatinine with a reduce in GFR. Some of this was contribution from the blood observed from the GI tract with a GI bleed being about the ligament of Tritez. His last BUN and creatinine on the showed a BUN of 41 creatinine 1.3 and EGFR greater than 60. His last hemoglobin was stable at 10.0 and platelets was 105,000. Physical Exam Vital Signs: Temp Pulse Resp BP Pulse Ox 98.5 F 68 18 133/70 H 95 01/28/20 08:23 01/28/20 08:23 01/28/20 08:23 01/28/20 08:23 01/28/20 08:23 Intake & Output 01/27/20 01/28/20 01/29/20 06:59 06:59 06:59 Intake Total 956 1600 Output Total 1075 975 Balance -119 625 Weight 50.8 kg 50.1 kg General appearance: PRESENT: other - HEAD: Is atraumatic normocephalic. EYES: Pupils are equal round regular reactive to light and accommodation. Extraocular movements are normal. There is no conjunctival pallor. There is no scleral icterus. EARS: Tympanic membranes are intact. External auditory canals are clear. NOSE: There is no deviated nasal septum. There is no inflammation of the nasal mucous membrane. MOUTH: Mucous membranes of mouth are dry tongue is still dry. THROAT: There is no redness of the oropharynx. There is no exudates. 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 There is no catie-care ecchymosis. NECK: Supple. There is no JVD present. Carotids are equal there is no bruit. There is no lymphadenopathy. There is no goiter. There is no accessory muscle respiration use. Trachea central. LUNGS: Shows diminished air entry prolonged expiration there is bibasilar rales of CHF. There is no rhonchi or wheezing. There is no chest wall tenderness on palpation. On palpation there is hyperresonance. There is no bibasilar rales of heart failure. HEART: S1-S2 is heard. There is no S3 gallop. There is no S4 gallop there is systolic murmur left sternal border and the apex there is no rub. ABDOMEN: Soft. There is no hepatosplenomegaly. Bowel sounds are normal. There is no hepatosplenomegaly. EXTREMITIES: There is diminished bilateral femoral pulses with bruits. 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 He has bilateral femoral bruits present. Leg pulses are diminished. There is no pedal edema bilaterally. There is no DVT or cellulitis. There is no cyanosis or clubbing. BACKBREAKER: The patient is asleep, but when aroused/awaken he is oriented x3 with no focal deficits. PSYCHIATRIC: Patient is a patient judgment insight are intact, and his affect is normal. Results Laboratory Results: WBC 5.5 10^3/uL (4.0-10.5) 01/26/20 05:30 RBC 3.13 10^6/uL (4.35-5.55) L 01/26/20 05:30 Hgb 10.0 g/dL (13.5-17.0) L 01/26/20 05:30 Hct 28.7 % (37.9-51.0) L 01/26/20 05:30 MCV 92 fl (80-97) 01/26/20 05:30 MCH 31.9 pg (27.0-33.4) 01/26/20 05:30 MCHC 34.7 g/dL (32.0-36.0) 01/26/20 05:30 RDW 15.5 % (11.5-14.0) H 01/26/20 05:30 Plt Count 102 10^3/uL (150-450) L 01/26/20 05:30 Lymph % (Auto) 7.6 % (13-45) L 01/18/20 06:10 Bland % (Auto) 9.1 % (3-13) 01/18/20 06:10 Eos % (Auto) 0.1 % (0-6) 01/18/20 06:10 Baso % (Auto) 0.3 % (0-2) 01/18/20 06:10 Reticulocyte # 0.039 10^6/uL (0.028-0.122) 01/27/20 12:36 Absolute Neuts (auto) 2.1 10^3/uL (1.7-8.2) 01/18/20 06:10 Absolute Lymphs (auto) 0.2 10^3/uL (0.5-4.7) L 01/18/20 06:10 Absolute Monos (auto) 0.2 10^3/uL (0.1-1.4) 01/18/20 06:10 Absolute Eos (auto) 0.0 10^3/uL (0.0-0.6) 01/18/20 06:10 Absolute Basos (auto) 0.0 10^3/uL (0.0-0.2) 01/18/20 06:10 Total Counted 100 01/15/20 01:48 Seg Neutrophils % 82.9 % (42-78) H 01/18/20 06:10 Seg Neuts % (Manual) 70 % (42-78) 01/15/20 01:48 Band Neutrophils % 2 % (3-5) L 01/05/20 16:03 Lymphocytes % (Manual) 12 % (13-45) L 01/15/20 01:48 Monocytes % (Manual) 18 % (3-13) H 01/15/20 01:48 Eosinophils % (Manual) 0 % (0-6) 01/15/20 01:48 Basophils % (Manual) 0 % (0-2) 01/15/20 01:48 Abs Neuts (Manual) 2.3 10^3/uL (1.7-8.2) 01/15/20 01:48 Abs Lymphs (Manual) 0.4 10^3/uL (0.5-4.7) L 01/15/20 01:48 Abs Monocytes (Manual) 0.6 10^3/uL (0.1-1.4) 01/15/20 01:48 Absolute Eos (Manual) 0.0 10^3/uL (0.0-0.6) 01/15/20 01:48 Abs Basophils (Manual) 0.0 10^3/uL (0.0-0.2) 01/15/20 01:48 Platelet Estimate Cancelled 12/31/19 03:45 Platelet Comment DECREASED 01/15/20 01:48 Anisocytosis SLIGHT 01/05/20 16:03 Retic Count (auto) 1.16 % (0.66-2.85) 01/27/20 12:36 PT 18.6 SEC (11.4-15.4) H 12/24/19 21:19 INR 1.54 12/24/19 21:19 APTT 36.0 SEC (23.5-35.8) H 12/24/19 21:19 Sodium 129.8 mmol/L (137-145) L 01/25/20 06:32 Potassium 4.3 mmol/L (3.6-5.0) 01/25/20 06:32 Chloride 100 mmol/L (98-107) 01/25/20 06:32 Carbon Dioxide 28 mmol/L (22-30) 01/25/20 06:32 Anion Gap 2 (5-19) L 01/25/20 06:32 BUN 42 mg/dL (7-20) H 01/25/20 06:32 Creatinine 1.03 mg/dL (0.52-1.25) 01/25/20 06:32 Est GFR ( Amer) > 60 (>60) 01/25/20 06:32 Est GFR (Non-Af Amer) Cancelled 01/20/20 07:18 Est GFR (MDRD) Non-Af > 60 (>60) 01/25/20 06:32 Glucose 67 mg/dL (75-110) L 01/25/20 06:32 POC Glucose 114 mg/dL (70-110) H 01/08/20 21:58 Calcium 7.7 mg/dL (8.4-10.2) L 01/25/20 06:32 Phosphorus 3.3 mg/dL (2.5-4.5) 01/04/20 03:43 Magnesium 2.8 mg/dL (1.6-2.3) H 01/04/20 03:43 Iron 32.1 ug/dL (49-181) L 01/27/20 12:36 TIBC 236 ug/dL (250-450) L 01/27/20 12:36 % Saturation 14 % 01/27/20 12:36 Ferritin 338.00 ng/mL (17.9-464.0) 01/27/20 12:36 Total Bilirubin 0.7 mg/dL (0.2-1.3) 01/18/20 06:10 Direct Bilirubin 0.6 mg/dL (0.0-0.4) H 01/18/20 06:10 Neonat Total Bilirubin Not Reportable 01/18/20 06:10 Neonat Direct Bilirubin Not Reportable 01/18/20 06:10 Neonat Indirect Bili Not Reportable 01/18/20 06:10 AST 35 U/L (17-59) 01/18/20 06:10 ALT 34 U/L (<50) 01/18/20 06:10 Alkaline Phosphatase 245 U/L (38-126) H 01/18/20 06:10 Creatine Kinase 47 U/L (55-170) L 12/26/19 09:20 Troponin I 0.040 ng/mL 12/26/19 09:20 NT-Pro-B Natriuret Pep 51854 pg/mL (<125) H 12/26/19 09:20 Total Protein 4.5 g/dL (6.3-8.2) L 01/18/20 06:10 Albumin 2.1 g/dL (3.5-5.0) L 01/18/20 06:10 EGFR Cancelled 01/20/20 07:18 Vitamin B12 906.0 pg/mL (239-931) 01/27/20 12:36 Folate 6.14 ng/mL (>2.76) 01/27/20 12:36 TSH 4.59 uIU/mL (0.47-4.68) 12/27/19 05:25 Free T4 0.99 ng/dL (0.78-2.19) 12/25/19 02:36 Random Cortisol 14.40 ug/dL (None Established) 01/17/20 14:20 Urine Color YELLOW 01/24/20 06:20 Urine Appearance CLEAR 01/24/20 06:20 Urine pH 7.0 (5.0-9.0) 01/24/20 06:20 Ur Specific [place] 1.012 01/24/20 06:20 Urine Protein NEGATIVE mg/dL (NEGATIVE) 01/24/20 06:20 Urine Glucose (UA) NEGATIVE mg/dL (NEGATIVE) 01/24/20 06:20 Urine Ketones NEGATIVE mg/dL (NEGATIVE) 01/24/20 06:20 Urine Blood MODERATE (NEGATIVE) H 01/24/20 06:20 Urine Nitrite NEGATIVE (NEGATIVE) 01/24/20 06:20 Urine Nitrite (Reflex) NEGATIVE (NEGATIVE) 12/25/19 04:50 Urine Bilirubin NEGATIVE (NEGATIVE) 01/24/20 06:20 Urine Urobilinogen 2.0 mg/dL (<2.0) H 01/24/20 06:20 Ur Leukocyte Esterase MODERATE (NEGATIVE) H 01/24/20 06:20 Leukocyte Esterase Rfl NEGATIVE (NEGATIVE) 12/25/19 04:50 Urine WBC (Auto) 80 /HPF 01/24/20 06:20 Urine RBC (Auto) 40 /HPF 01/24/20 06:20 U Hyaline Cast (Auto) 8 /LPF 01/16/20 21:00 Urine Bacteria (Auto) TRACE /HPF 01/19/20 06:27 Urine WBC Clumps MANY /HPF 01/21/20 05:40 Squamous Epi Cells Auto <1 /HPF 01/16/20 21:00 U Non-Squamous Epis Auto 2 /HPF 01/21/20 05:40 Urine Mucus (Auto) RARE /LPF 01/24/20 06:20 Urine Ascorbic Acid NEGATIVE (NEGATIVE) 01/24/20 06:20 Stool Occult Blood NEGATIVE (NEGATIVE) 01/28/20 09:50 Stool for White Cells NO WBCs SEEN 01/10/20 18:13 Stl C. Difficile GDH Ag NEGATIVE (NEGATIVE) 01/22/20 21:00 Stl C.difficile Tox A&B NEGATIVE (NEGATIVE) 01/22/20 21:00 Digoxin 1.43 ng/mL (0.8-2.0) 01/07/20 03:53 COVID-19 Source See comment 01/25/20 16:00 COVID-19 (JONH) Not Detected (Not Detect) 01/25/20 16:00 Slides for Path Review Cancelled 12/31/19 03:45 Blood Type B POSITIVE 01/23/20 12:10 Blood Type Confirm B POSITIVE 01/03/20 05:25 Antibody Screen NEGATIVE 01/23/20 12:10 Crossmatch See Detail 01/23/20 12:10 12/24/19 12/25/19 12/25/19 21:19 02:36 09:38 Troponin I 0.043 0.045 0.045 NT-Pro-B Natriuret Pep [id number] H 12/26/19 09:20 Troponin I 0.040 NT-Pro-B Natriuret Pep [id number] H EKG Comments: EKG: [12/24/2019]:SINUS RHYTHM [VPC] . VENTRICULAR PREMATURE COMPLEX [NIVCD] . NONSPECIFIC INTRAVENTRICULAR CONDUCTION DELAY [LVOLF] . LOW VOLTAGE IN FRONTAL LEADS [LVHREP] . LVH WITH SECONDARY REPOLARIZATION ABNORMALITY EKG: [12/28/2019]:. SINUS RHYTHM [LVOLF] . LOW VOLTAGE IN FRONTAL LEADS [LVHCO] . LVH WITH IVCD AND SECONDARY REPOL ABNRM Impressions: Chest X-Ray 12/24/19 19:50 IMPRESSION: New right basilar airspace consolidative change, suspicious for pneumonia. Head CT 12/24/19 20:48 IMPRESSION: 1. No acute intracranial findings. 2. Senescent changes with chronic microvascular ischemia and old lacunar infarcts. Chest X-Ray 12/28/19 00:00 IMPRESSION: 1. New right pleural effusion since 12/24/2019, with worsening right pulmonary infiltrate, likely pneumonia. Chest X-Ray 12/29/19 00:00 IMPRESSION: Right internal jugular catheter as described. Improving right lower lobe pneumonia. GI Bleed Scan Nuclear Medicine 01/04/20 00:00 IMPRESSION: EVIDENCE OF ACTIVE GASTROINTESTINAL BLEEDING. POINT OF ORIGIN IS IN THE RIGHT UPPER QUADRANT. Chest X-Ray 01/05/20 06:00 IMPRESSION: Improved but persistent patchy right basilar airspace disease and trace effusion. Abdomen Ultrasound 01/07/20 00:00 IMPRESSION: NO ABDOMINAL AORTIC ANEURYSM. Abdomen/Pelvis CT 01/12/20 16:00 IMPRESSION: Wall thickening in the rectosigmoid consistent with colitis. There is an aortobifemoral graft which appears patent. However the left superficial femoral artery appears occluded in the visualized segments of the proximal thigh. Recommend correlation with CTA or arterial Doppler. This finding was discussed with Dr Alicia Brizuela @ 2004 Subcutaneous and intra-abdominal stranding which may reflect anasarca Renal cysts with marked atrophy of the left kidney Right basilar atelectasis and pleural effusion Additional chronic changes as above GI Bleed Scan Nuclear Medicine 01/23/20 00:00 IMPRESSION: NORMAL RADIONUCLIDE GASTROINTESTINAL BLEEDING STUDY. ACTIVE BLEEDING NOTED ON PRIOR STUDY HAS RESOLVED. Plan Health Concerns: The patient is severely malnourished and appears to be chronically ill. He has significant COPD, albeit asymptomatic at present. He also has end-stage cardiomyopathy which is a combination of ischemic and dilated cardiomyopathy. His ejection fraction is less than 15%. He does have a history of CAD old myocardial infarction and history of AICD placement. His AICD needs to be checked periodically. Throughout the course even when the patient's hemoglobin dropped to 6.3 the patient had no anginal symptoms and there is no evidence of non-ST elevation CT. He also has depression, pancytopenia, and anemia and needs to be watched for recurrence of GI bleed. The patient is declared himself to be a DNR. He has good family support in all respects. Plan of Treatment: The plan is to 1. Continue the patient medication, especially cardiac medications., 2. Cardiac low-salt low-fat diet. Also would recommend supplementation with 2 cans of Ensure per day. 3. Weigh patient daily, and increase Lasix if the patient gains 2 pounds in a day of 4 pounds in 2 days. 4. Periodic check of the AICD. 5. Watchful ongoing or recurrence of GI bleed 6. Periodic cardiology checkups. 7. Continue his anti-COPD medication. 8. Continue his antidepressants. 9. Patient needs help in ambulation. He also needs help in activities of daily life such as bathing. Patient can feed himself. He needs help getting up out of bed into the chair and also needs help to help him ambulate and increase his ambulatory function. Goals: patient will call and make appointment--DJL The patient recommended to see Dr. Brizuela [facility] 2 weeks[facility] [address] [place] [address] , [place], [place]. Telephone number [phone]. Dr. Brizuela can be reached on his cell phone which is [phone]. Time Spent: Greater than 30 Minutes Stroke Is this a Stroke Patient?: No Reason(s) for not prescribing Anti-coagulation therapy:: Drug Resistance Acute Heart Failure Is this a Heart Failure Patient?: Yes Documentation of LVEF assessment?: Yes LVEF: LVEF Less Than or Equal to 35% - Patient's echo LV ejection fraction is less than 15% Anticoagulant Therapy: No, document contraindications - Patient has ongoing GI bleed and also pre-existing history of pancytopenia. The patient does not have indication for anticoagulation with the newer oral anticoagulants or Coumadin. Reason(s) not Discharged on Anticoagulant Therapy: Risk for bleeding, Other - The patient also has pancytopenia and has a recent major GI bleed requiring 14 units of packed RBCs. In fact his antiplatelet agents have also been held [aspirin and Plavix both of been held] Anticoagulant Therapy Reason - Other: The patient also has pancytopenia and has a recent major GI bleed requiring Discharged on Evidence-Based Beta Blockers: Yes Discharged on ARNI?: Yes - Note that the patient is on Entresto as per guidelines For LVEF <35%, discharged on Aldosterone Antagonist?: No-document contraincation s - Patient hypotensive already requires midodrine to be able to get beta- blockers and Entresto. Reason(s) not discharged on Aldosterone Antagonist: Allergy, Other - Patient a lready hypotensive Aldosterone Antagonist Reason - Other: Patient has hypotension Follow-up Appointment scheduled within 7 days?: Yes
[2020-01-28 11:34] LABS: APPEARANCE,URINE CLOUDY; BILIRUBIN,URINE NEGATIVE (NEGATIVE); COLOR,URINE YELLOW; GLUCOSE, URINE NEGATIVE (NEGATIVE); KETONES,URINE NEGATIVE (NEGATIVE); LEUKOCYTE ESTERASE,URINE LARGE (NEGATIVE); NITRITE,URINE NEGATIVE (NEGATIVE); PROTEIN,URINE 30 mg/dL (NEGATIVE); URINE SPECIFIC GRAVITY 1.013; UROBILINOGEN,URINE NEGATIVE mg/dL (<2.0)
[2020-01-28 12:22] LABS: HEMATOCRIT 29.2 % (37.9-51.0); HEMOGLOBIN 10.4 g/dL (13.5-17.0); MEAN CORPUSCULAR HEMOGLOBIN 32.6 pg (27.0-33.4); MEAN CORPUSCULAR HGB CONC 35.7 g/dL (32.0-36.0); MEAN CORPUSCULAR VOLUME 91 fl (80-97); PLATELET COUNT 114 10^3/uL (150-450); RED CELL DISTRIBUTION WIDTH 15.7 % (11.5-14.0); WHITE BLOOD COUNT 5.1 10^3/uL (4.0-10.5)
[2020-01-28 13:05] VITALS: BP 131/55
== END 2020-01-28 15:30 | DRG 291 ==
LOC: ER 18:00 → EH 23:01 → 4S 12-25 00:20 → 3S 12-27 14:32 → ICU 12-29 18:59 → 3S 01-07 19:51
PROVIDERS: ADMIT Specialist; ATTEND Specialist
PROC: B24BZZ4 Ultrasonography of Heart with Aorta, Transesophageal (ICD-10-PCS; 2019-12-29)
PROC: 02HV33Z Insertion of Infusion Device into Superior Vena Cava, Percutaneous Approach (ICD-10-PCS; 2019-12-29)
PROC: B548ZZA Ultrasonography of Superior Vena Cava, Guidance (ICD-10-PCS; 2019-12-29)
PROC: 30233N1 Transfusion of Nonautologous Red Blood Cells into Peripheral Vein, Percutaneous Approach (ICD-10-PCS; 2019-12-31)
PROC: 3E0G8GC Introduction of Other Therapeutic Substance into Upper GI, Via Natural or Artificial Opening Endoscopic (ICD-10-PCS; 2020-01-03)
PROC: 0DJ08ZZ Inspection of Upper Intestinal Tract, Via Natural or Artificial Opening Endoscopic (ICD-10-PCS; 2020-01-03)
PROC: 30233N1 Transfusion of Nonautologous Red Blood Cells into Peripheral Vein, Percutaneous Approach (ICD-10-PCS; 2020-01-03)
PROC: 30233R1 Transfusion of Nonautologous Platelets into Peripheral Vein, Percutaneous Approach (ICD-10-PCS; 2020-01-04)
PROC: 0DB98ZX Excision of Duodenum, Via Natural or Artificial Opening Endoscopic, Diagnostic (ICD-10-PCS; 2020-01-04)
PROC: 0DB78ZX Excision of Stomach, Pylorus, Via Natural or Artificial Opening Endoscopic, Diagnostic (ICD-10-PCS; 2020-01-04)
PROC: 3E0G8GC Introduction of Other Therapeutic Substance into Upper GI, Via Natural or Artificial Opening Endoscopic (ICD-10-PCS; 2020-01-04)
PROC: 30233N1 Transfusion of Nonautologous Red Blood Cells into Peripheral Vein, Percutaneous Approach (ICD-10-PCS; 2020-01-04)
PROC: 0W3P8ZZ Control Bleeding in Gastrointestinal Tract, Via Natural or Artificial Opening Endoscopic (ICD-10-PCS; principal; 2020-01-04 19:34)
PROC: 30233N1 Transfusion of Nonautologous Red Blood Cells into Peripheral Vein, Percutaneous Approach (ICD-10-PCS; 2020-01-05)
PROC: 30233N1 Transfusion of Nonautologous Red Blood Cells into Peripheral Vein, Percutaneous Approach (ICD-10-PCS; 2020-01-07)
PROC: 30233N1 Transfusion of Nonautologous Red Blood Cells into Peripheral Vein, Percutaneous Approach (ICD-10-PCS; 2020-01-11)
PROC: 3E0G8GC Introduction of Other Therapeutic Substance into Upper GI, Via Natural or Artificial Opening Endoscopic (ICD-10-PCS; 2020-01-13)
PROC: 0DB98ZX Excision of Duodenum, Via Natural or Artificial Opening Endoscopic, Diagnostic (ICD-10-PCS; 2020-01-13)
PROC: 0DB78ZX Excision of Stomach, Pylorus, Via Natural or Artificial Opening Endoscopic, Diagnostic (ICD-10-PCS; 2020-01-13)
PROC: 0W3P8ZZ Control Bleeding in Gastrointestinal Tract, Via Natural or Artificial Opening Endoscopic (ICD-10-PCS; 2020-01-13 17:45)
PROC: 30233N1 Transfusion of Nonautologous Red Blood Cells into Peripheral Vein, Percutaneous Approach (ICD-10-PCS; 2020-01-14)
PROC: 30233N1 Transfusion of Nonautologous Red Blood Cells into Peripheral Vein, Percutaneous Approach (ICD-10-PCS; 2020-01-23)
DX: I11.0 Hypertensive heart disease with heart failure (principal); K26.0 Acute duodenal ulcer with hemorrhage; J18.9 Pneumonia, unspecified organism; J96.01 Acute respiratory failure with hypoxia; K29.71 Gastritis, unspecified, with bleeding; D61.818 Other pancytopenia; I82.C11 Acute embolism and thrombosis of right internal jugular vein; N17.9 Acute kidney failure, unspecified; I50.23 Acute on chronic systolic (congestive) heart failure; I42.0 Dilated cardiomyopathy; Z20.828 Contact with and (suspected) exposure to other viral communicable diseases; Z66 Do not resuscitate; I27.20 Pulmonary hypertension, unspecified; D50.0 Iron deficiency anemia secondary to blood loss (chronic); R62.7 Adult failure to thrive; I95.9 Hypotension, unspecified; R53.1 Weakness; I25.10 Atherosclerotic heart disease of native coronary artery without angina pectoris; J44.9 Chronic obstructive pulmonary disease, unspecified; E78.5 Hyperlipidemia, unspecified; I25.5 Ischemic cardiomyopathy; K76.1 Chronic passive congestion of liver; C76.0 Malignant neoplasm of head, face and neck; D69.6 Thrombocytopenia, unspecified; E86.0 Dehydration; E87.6 Hypokalemia; I73.9 Peripheral vascular disease, unspecified; I08.1 Rheumatic disorders of both mitral and tricuspid valves; I25.2 Old myocardial infarction; I87.8 Other specified disorders of veins; R19.7 Diarrhea, unspecified; T78.1XXA Other adverse food reactions, not elsewhere classified, initial encounter; X58.XXXA Exposure to other specified factors, initial encounter; F17.210 Nicotine dependence, cigarettes, uncomplicated; Z79.899 Other long term (current) drug therapy; Z91.19 Patient's noncompliance with other medical treatment and regimen; Z95.810 Presence of automatic (implantable) cardiac defibrillator; Z95.1 Presence of aortocoronary bypass graft; Z79.02 Long term (current) use of antithrombotics/antiplatelets; Z99.81 Dependence on supplemental oxygen; Z74.01 Bed confinement status
CPT/HCPCS: 00731; 36415; 36430; 43236; 43239; 43251; 43270; 70450; 71045; 74177; 76706; 78278; 80048; 80053; 80162; 81001; 82272; 82533; 82550; 82607; 82728; 82746; 82962; 83540; 83550; 83735; 83880; 84100; 84439; 84443; 84484; 85025; 85027; 85045; 85610; 85730; 86850; 86900; 86901; 86920; 87040; 87045; 87205; 87324; 87449; 87635; 88305; 89055; 93005; 93010; 93306; 94640; 96374; 99285; A9560; C9113; C9803; J0171; J0696; J1200; J1250; J1265; J1610; J1642; J1650; J1720; J1940; J2250; J2260; J2270; J2310; J2405; J2704; J3010; J3490; J7050; J7060; J7120; J7121; P9016; P9035; Q9969; S0028

== ENCOUNTER 2020-03-24 12:08 | Inpatient (IN) | payer OTHER, MEDICARE, MEDICAID ==
--- NOTE | 2020-03-24 12:24 | ER Document Report ---
ED GI/ - General Chief Complaint: Diarrhea Stated Complaint: DIARRHEA Time Seen by Provider: 03/24/20 12:22 Primary Care Provider: BERONICA SÁNCHEZ MD [NO LOCAL MD] - Follow up as needed Mode of Arrival: Medic Information source: Patient, Emergency Med Personnel Notes: MY NOTES 69-year-old male arrives by EMS with Lilibeth as main spokesperson for EMS system. They were called out because of failure to thrive on a elderly frail-appearing 69-year-old male by his home health nurse second day on the job. She reported that the patient had been having diarrhea for 1 week and unable to get out of his bed and today was found to be covered in clothes soaked with urine and quite malodorous with skin breakdown to his right buttocks and right flank. Patient reports he has been unable to take his medicines because he dueñas she is she has been quite confused. He is oriented enough to tell us his name and where he lives. Patient lives alone. Lilibeth's partner reports another EMS who saw him last month advises he has lost weight over 1 month and appears very frail today.. Patient has a prior history of cancer of the mouth COPD anemia CHF [facility] and has a pacer AICD in place. Patient takes Carafate Coreg Crestor Lasix midodrine Entresto Protonix Prozac and trazodone patient was given 250 mL bolus because of the history of congestive failure. Patient reports the last time he took any food was yesterday when he had some soup. He has had nothing today by mouth. Patient reports 1 month ago he had work-up for GI bleed. TRAVEL OUTSIDE OF THE [place] IN LAST 30 DAYS: No - HPI Patient complains to provider of: Abdominal pain, Diarrhea, Dysuria Onset: This morning Timing/Duration: Persistent Quality of pain: No pain Pain Level: Denies - Related Data Allergies/Adverse Reactions: No Known Allergies Allergy (Verified 11/11/19 20:49) Past Medical History - General Information source: Patient, Emergency Med Personnel - Social History Smoking Status: Current Every Day Smoker Cigarette use (# per day): Yes Chew tobacco use (# tins/day): No Smoking Education Provided: Yes Frequency of alcohol use: None Drug Abuse: None Lives with: Alone Family History: Reviewed & Not Pertinent Patient has suicidal ideation: No Patient has homicidal ideation: No - Past Medical History Cardiac Medical History: Reports: Hx Congestive Heart Failure, Hx Heart Attack, Hx Hypercholesterolemia, Hx Hypertension Pulmonary Medical History: Reports: Hx COPD Neurological Medical History: Denies: Hx Seizures Renal/ Medical History: Denies: Hx Peritoneal Dialysis GI Medical History: Reports: Hx Gastroesophageal Reflux Disease Psychiatric Medical History: Denies: Hx Depression Past Surgical History: Reports: Hx Abdominal Surgery - hernia x2, Hx Cardiac Catheterization - CABG, Hx Cardiac Surgery - stent, pacemaker/defibulator placed, Hx Coronary Artery Bypass Graft, Hx Herniorrhaphy - bilateral inguinal hernia repair, Hx Orthopedic Surgery, Hx Pacemaker, Hx Vascular Surgery - fem- pop Review of Systems - Review of Systems Constitutional: See HPI, Malaise, Weakness EENT: No symptoms reported Cardiovascular: No symptoms reported Respiratory: No symptoms reported Gastrointestinal: See HPI, Diarrhea, Black stools Genitourinary: No symptoms reported Male Genitourinary: No symptoms reported Musculoskeletal: No symptoms reported Skin: No symptoms reported Hematologic/Lymphatic: No symptoms reported Neurological/Psychological: See HPI, Weakness Physical Exam - Vital signs Vitals: Temp Resp BP Pulse Ox 97.8 F 22 H 144/99 H 91 L 03/24/20 12:21 03/24/20 12:21 03/24/20 12:21 03/24/20 12:21 Interpretation: Normal - General General appearance: Appears well, Alert - HEENT Head: Normocephalic, Atraumatic Eyes: Normal Pupils: PERRL - Respiratory Respiratory status: No respiratory distress Chest status: Nontender Breath sounds: Normal Chest palpation: Normal - Cardiovascular Rhythm: Regular Heart sounds: Normal auscultation Murmur: No - Abdominal Inspection: Normal Distension: No distension Bowel sounds: Normal Tenderness: Nontender Organomegaly: No organomegaly - Rectal Tenderness: No Stool: Black - Back Back: Normal, Nontender - Extremities General upper extremity: Normal inspection, Nontender, Normal color, Normal ROM, Normal temperature General lower extremity: Normal inspection, Nontender, Normal color, Normal ROM, Normal temperature, Normal weight bearing. No: Brock's sign - Neurological Neuro grossly intact: Yes Cognition: Normal Orientation: AAOx4 Kath Coma Scale Eye Opening: Spontaneous Kath Coma Scale Verbal: Oriented Kath Coma Scale Motor: Obeys Commands [place] Coma Scale Total: 15 Speech: Normal Motor strength normal: LUE, RUE, LLE, RLE Sensory: Normal - Psychological Associated symptoms: Normal affect, Normal mood - Skin Skin Temperature: Warm Skin Moisture: Dry Skin Color: Normal Course - Vital Signs Vital signs: Temp Pulse Resp BP Pulse Ox 97.8 F 22 H 142/95 H 100 03/24/20 12:21 03/24/20 15:01 03/24/20 15:00 03/24/20 15:01 - Laboratory Results Result Diagrams: 03/24/20 15:40 03/24/20 14:12 Laboratory Results Interpreted: 03/24/20 03/24/20 03/24/20 12:38 14:12 14:12 PT 24.9 H Carbon Dioxide 20 L BUN 91 H Creatinine 2.35 H Est GFR ( Amer) 34 L Est GFR (MDRD) Non-Af 28 L Total Bilirubin 3.9 H Direct Bilirubin 2.1 H AST 74 H ALT 104 H Alkaline Phosphatase 176 H NT-Pro-B Natriuret Pep Albumin 3.3 L Urine Protein 30 H Urine Blood SMALL H Ur Leukocyte Esterase LARGE H 03/24/20 14:12 PT Carbon Dioxide BUN Creatinine Est GFR ( Amer) Est GFR (MDRD) Non-Af Total Bilirubin Direct Bilirubin AST ALT Alkaline Phosphatase NT-Pro-B Natriuret Pep 400733 H Albumin Urine Protein Urine Blood Ur Leukocyte Esterase Critical Laboratory Results Reviewed: Yes Attending or Supervising Physician who Reviewed Labs: CARMEN WASHINGTON JR - Radiology Results Radiology Results Interpreted: 03/24/20 15:[address] Cisneros radiologist patient has new cardiomegaly with right lower lobe persistent infiltrate 03/24/20 15:02 Critical Radiology Results Reviewed: Yes Attending or Supervising Physician who Reviewed Radiology: CARMEN WASHINGTON JR - EKG Interpretation by Me EKG shows normal: Sinus rhythm Rate: Tachycardia Rhythm: NSR - Sinus tachycardia 100 bpm with low voltage in frontal leads with LVH with secondary repolarization abnormality and prolonged QT interval. This was read by the EKG machine I agree with its assessment. I also read the EKG. Critical Care Note - Critical Care Note Comments: I spoke with Dr. Sanders at around 1523 and he will advise when he gets to the ER disposition and what hospitalist to call.Dr Nakul Estrada will see pt in ED. I discussed this case with Dr. Estrada at 1610 and he will see the patient. Also discussed this case with Dr. Castaneda at 1615 and he advises Bumex IV for the patient's congestive failure. Discharge - Discharge Clinical Impression: FTT (failure to thrive) in adult, Guaiac + stool, Elevated troponin, Weak UTI (urinary tract infection) Qualifiers: Urinary tract infection type: acute cystitis Hematuria presence: without h ematuria Qualified Code(s): N30.00 - Acute cystitis without hematuria CHF (congestive heart failure) Qualifiers: Heart failure type: unspecified Heart failure chronicity: unspecified Qualified Code(s): I50.9 - Heart failure, unspecified Condition: Stable Disposition: ADMITTED INPATIENT Admitting Provider: Natalie (Hospitalist) Unit Admitted: Medical Floor Referrals: BERONICA SÁNCHEZ MD [NO LOCAL MD] - Follow up as needed
--- NOTE | 2020-03-24 13:36 | RADIOLOGY REPORT (SQ) ---
EXAM DESCRIPTION: CHEST SINGLE VIEW IMAGES COMPLETED DATE/TIME: 03/24/2020 1:29 pm REASON FOR STUDY: FTT weak COMPARISON: 01/05/2020 EXAM PARAMETERS: NUMBER OF VIEWS: One view. TECHNIQUE: Single frontal radiographic view of the chest acquired. RADIATION DOSE: NA LIMITATIONS: None. FINDINGS: LUNGS AND PLEURA: Persistent right ir lobe airspace disease but improved from prior study. Lung orantes are otherwise clear. MEDIASTINUM AND HILAR STRUCTURES: No masses. Contour normal. HEART AND VASCULAR STRUCTURES: Heart is enlarged on today's study this is a new finding. BONES: No acute findings. HARDWARE: Battery pack and leads remain in place. OTHER: Right-sided central line previously noted has been removed. IMPRESSION: 1. New cardiomegaly. 2. Persistent right basilar infiltrate slightly improved from prior study. TECHNICAL DOCUMENTATION: JOB ID: [id number] 2010 [employer]- All Rights Reserved Reading location - IP/workstation name: [email or web address]
[2020-03-24 13:41] LABS: C DIFFICILE GDH NEGATIVE (NEGATIVE)
[2020-03-24 13:50] LABS: APPEARANCE,URINE SLIGHTLY-CLOUDY; BILIRUBIN,URINE NEGATIVE (NEGATIVE); COLOR,URINE DARK YELLOW; GLUCOSE, URINE NEGATIVE (NEGATIVE); KETONES,URINE NEGATIVE (NEGATIVE); LEUKOCYTE ESTERASE,URINE LARGE (NEGATIVE); NITRITE,URINE NEGATIVE (NEGATIVE); PROTEIN,URINE 30 mg/dL (NEGATIVE); URINE SPECIFIC GRAVITY 1.019; UROBILINOGEN,URINE NEGATIVE mg/dL (<2.0)
[2020-03-24] MEDS ORDERED: FAMOTIDINE INJ/PF 20 MG/2 ML SDV IV ONE (14:21)
[2020-03-24] MEDS ORDERED: PANTOPRAZOLE SODIUM 40 MG VIAL IV ONE (14:22)
[2020-03-24] MEDS ORDERED: CEFTRIAXONE INJ 1000 MG VIAL IV ONE (14:24)
[2020-03-24 14:42] LABS: INTERNATIONAL RATION (INR) 2.25; PROTHROMBIN TIME 24.9 SEC (11.4-15.4)
[2020-03-24 14:52] LABS: ALBUMIN 3.3 g/dL (3.5-5.0); ALKALINE PHOSPHATASE 176 U/L (38-126); ANION GAP 16 (5-19); ASPARTATE AMINO TRANSFERASE 74 U/L (17-59); BILIRUBIN,DIRECT 2.1 mg/dL (0.0-0.4); BILIRUBIN,TOTAL 3.9 mg/dL (0.2-1.3); BLOOD UREA NITROGEN 91 mg/dL (7-20); CALCIUM 10.2 mg/dL (8.4-10.2); CARBON DIOXIDE 20 mmol/L (22-30); CHLORIDE 107 mmol/L (98-107); CREATINE KINASE 59 U/L (55-170); GLUCOSE 86 mg/dL (75-110); POTASSIUM 3.8 mmol/L (3.6-5.0); TOTAL PROTEIN 6.5 g/dL (6.3-8.2)
[2020-03-24] MEDS ORDERED: ONDANSETRON HCL INJ/PF 4 MG/2 ML SDV IV ONE (14:54)
--- NOTE | 2020-03-24 15:10 | EKG REPORT ---
SEVERITY:- ABNORMAL ECG - SINUS TACHYCARDIA LOW VOLTAGE IN FRONTAL LEADS LVH WITH SECONDARY REPOLARIZATION ABNORMALITY PROLONGED QT INTERVAL : Confirmed by: Brennan Marc MD 24-Mar-2020 15:09:28
[2020-03-24] MEDS ORDERED: IPRATROPIUM/ALBUTEROL 0.5-2.5 MG/3 ML AMPUL NEB ONE (15:11)
[2020-03-24 16:04] LABS: ABSOLUTE LYMPHOCYTES (AUTO) 0.3 10^3/uL (0.5-4.7); ABSOLUTE MONOCYTES (AUTO) 0.2 10^3/uL (0.1-1.4); ABSOLUTE NEUT (AUTO) 4.1 10^3/uL (1.7-8.2); BASOPHILS % (AUTO) 0.4 % (0-2); EOSINOPHILS % (AUTO) 0.1 % (0-6); HEMATOCRIT 32.8 % (37.9-51.0); HEMOGLOBIN 10.8 g/dL (13.5-17.0); LYMPHOCYTES % (AUTO) 6.8 % (13-45); MEAN CORPUSCULAR HEMOGLOBIN 36.2 pg (27.0-33.4); MONOCYTES % (AUTO) 4.2 % (3-13); RED BLOOD COUNT 2.99 10^6/uL (4.35-5.55); RED CELL DISTRIBUTION WIDTH 26.5 % (11.5-14.0); SEGMENTED NEUTROPHILS % (AUTO) 88.5 % (42-78); TOTAL CELLS COUNTED % (AUTO) 100 %; WHITE BLOOD COUNT 4.6 10^3/uL (4.0-10.5)
[2020-03-24 16:07] LABS: TROPONIN I 0.124 ng/mL
[2020-03-24] MEDS ORDERED: BUMETANIDE INJ/PF 1 MG/4 ML SDV IV ONE (16:20)
[2020-03-24 16:31] LABS: MEAN CORPUSCULAR VOLUME 110 fl (80-97)
[2020-03-24 16:35] LABS: ANISOCYTOSIS 3+; BURR CELLS 1+; HOWELL-JOLLY BODIES PRESENT; OVALOCYTES 1+; POLYCHROMASIA 1+
[2020-03-24 16:36] LABS: PLATELET COMMENT DECREASED
[2020-03-24] MEDS ORDERED: ONDANSETRON HCL INJ/PF 4 MG/2 ML SDV IV PRN (16:37)
[2020-03-24 16:39] LABS: PLATELET COUNT 29 10^3/uL (150-450)
--- NOTE | 2020-03-24 17:21 | PDOC H&P ---
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 He was recently diagnosed with gastric ulcer and was placed on twice a day proton pump inhibitor plus Carafate. He lives at home alone. He was found today by the home health nurse. He was covered in his own urine and feces, and has some excoriation to the right hip, right buttocks, and perianal area. He said he has been too weak to get out of bed for the past 3 days. He has had very little to eat or drink during that time. His vital signs have been stable. He has not had any fever, chest pain, or shortness of breath. No abdominal pain. No dysuria. He does not know who his doctor is but he says he goes to the [facility]. He does not know the name of all of his medications. He does not know all of his health problems. What is listed above was learned from the electronic medical record here. He was found with very low platelets on his CBC. His hemoglobin was in the normal range. His stool was guaiac positive, but his stool was brown, leading us to think that his thrombocytopenia and his diarrhea over the past few days is what likely made his stool guaiac positive. His BUN was substantially elevated. His creatinine was elevated substantially above baseline. Troponin was checked but it was equivocal. BNP was also substantially elevated and he got a dose of Bumex in the ER, but he is in no way fluid overloaded, and in fact quite the opposite. Past Medical History Cardiac Medical History: Reports: Congestive Heart Failure, Myocardial Infarction, Hyperlipidema, Hypertension Pulmonary Medical History: Reports: Chronic Obstructive Pulmonary Disease (COPD) Neurological Medical History: Denies: Seizures GI Medical History: Reports: Gastroesophageal Reflux Disease Psychiatric Medical History: Denies: Depression Past Surgical History Past Surgical History: Reports: Cardiac Catheterization - CABG, Coronary Artery Bypass Graft, Herniorrhaphy - bilateral inguinal hernia repair, Orthopedic Surgery, Pacemaker, Vascular Surgery - fem-pop Social History Lives with: Alone Smoking Status: Current Every Day Smoker Frequency of Alcohol Use: None Hx Recreational Drug Use: No Hx Prescription Drug Abuse: No Family History Family History: Reviewed & Not Pertinent Parental Family History Reviewed: No - Unknown Children Family History Reviewed: Unknown Sibling(s) Family History Reviewed.: Unknown Medication/Allergy Home Medications: Carvedilol [Coreg 6.25 mg Tablet] 6.25 mg PO Q12 #0 tablet 01/28/20 Ferrous Sulfate [Feosol 325 mg Tablet] 975 mg PO DAILY 90 Days #90 tablet 01/28/20 Fluoxetine HCl [Prozac 20 mg Capsule] 20 mg PO Q12 30 Days #60 capsule MDD 2 01/28/20 Furosemide [Lasix 20 mg Tablet] 20 mg PO DAILY 30 Days #30 tablet 01/28/20 Isosorbide Mononitrate [Imdur 30 mg Tablet.er] 30 mg PO DAILY 30 Days #30 tab 01/28/20 Levalbuterol HCl [Xopenex Neb 0.63 mg/3 ml Ampul] 0.63 mg NEB RTQ6HP PRN 30 Days #120 vial.neb 01/28/20 Midodrine HCl [Proamatine 5 mg Tablet] 5 mg PO TID 30 Days #90 tablet 01/28/20 Multivits W-Min/Ferrous Gluc [Certavite Multivit/Minerals/Iron Soln] 15 ml PO DAILY 30 Days #1 ml 01/28/20 Nitroglycerin [Nitrostat 0.4 mg (1/150 Gr) Tabs 25/Bottle] 0.4 mg SL Q5MP PRN 30 Days #30 bottle 01/28/20 Pantoprazole Sodium [Protonix [address] Tablet] 40 mg PO BID@0600,1700 30 Days #60 tablet.dr 01/28/20 Rosuvastatin Calcium [Crestor] 20 mg PO QHS 30 Days #30 tab 01/28/20 Sacubitril/Valsartan [Entresto 49 mg/51 mg Tablet] 1 tab PO Q12 30 Days #60 tablet 01/28/20 Sucralfate [Carafate 1 gm Tablet] 1 gm PO ACHS 30 Days #120 tablet 01/28/20 Tiotropium Br/Olodaterol HCl [Stiolto Respimat Inhal [place]] 2 puff IH DAILY 30 Days #1 inhaler 10/28/20 Tiotropium Java [Spiriva Handihaler 5 Cap/Kit (18 Mcg/Cap)] 1 cap IH DAILY 30 Days #30 kit 01/28/20 Allergies/Adverse Reactions: No Known Allergies Allergy (Verified 11/11/19 20:49) Review of Systems All systems: reviewed and no additional remarkable complaints except as stated - Given his limitations as a historian, all systems were reviewed and were negative except as noted in the HPI. Physical Exam Vital Signs: Temp Pulse Resp BP Pulse Ox 97.8 F 22 H 142/95 H 100 03/24/20 12:21 03/24/20 15:01 03/24/20 15:00 03/24/20 15:01 Intake & Output 03/23/20 03/24/20 03/25/20 06:59 06:59 06:59 Weight 47.3 kg General appearance: PRESENT: no acute distress, cooperative, disheveled, thin Head exam: PRESENT: atraumatic, normocephalic Eye exam: PRESENT: EOMI, PERRLA. ABSENT: conjunctival injection, nystagmus, scleral icterus Ear exam: PRESENT: normal external ear exam Mouth exam: PRESENT: dry mucosa, neck supple Teeth exam: PRESENT: poor dentation Throat exam: ABSENT: post pharyngeal erythema Neck exam: PRESENT: full ROM. ABSENT: carotid bruit, JVD, lymphadenopathy, meningismus, tenderness, thyromegaly Respiratory exam: PRESENT: clear to auscultation khushboo, symmetrical, unlabored. ABSENT: accessory muscle use, chest wall tenderness, crackles, prolonged expiratory phas, rhonchi, tachypnea, wheezes Cardiovascular exam: PRESENT: RRR, +S1, +S2 Pulses: PRESENT: normal carotid pulses Vascular exam: PRESENT: normal capillary refill GI/Abdominal exam: PRESENT: normal bowel sounds, soft. ABSENT: distended, guarding, rebound, tenderness Extremities exam: ABSENT: clubbing, pedal edema Musculoskeletal exam: PRESENT: normal inspection, other - Appears to have some d egree of muscle wasting. ABSENT: deformity Neurological exam: PRESENT: awake, oriented to person, oriented to place, oriented to situation, CN II-XII grossly intact. ABSENT: motor sensory deficit Psychiatric exam: PRESENT: flat affect Skin exam: PRESENT: abrasion - Right buttocks, dry, warm Results Laboratory Results: 03/24/20 15:40 03/24/20 14:12 03/24/20 03/24/20 03/24/20 12:38 14:12 14:12 WBC Cancelled RBC Cancelled Hgb Cancelled Hct Cancelled MCV Cancelled MCH Cancelled MCHC Cancelled RDW Cancelled Plt Count Cancelled Seg Neutrophils % Cancelled Sodium 143.4 Potassium 3.8 Chloride 107 Carbon Dioxide 20 L Anion Gap 16 BUN 91 H Creatinine 2.35 H Est GFR ( Amer) 34 L Glucose 86 Calcium 10.2 Total Bilirubin 3.9 H AST 74 H Alkaline Phosphatase 176 H Total Protein 6.5 Albumin 3.3 L Urine Color DARK YELLOW Urine Appearance SLIGHTLY-CLOUDY Urine pH 5.0 Ur Specific [place] 1.019 Urine Protein 30 H Urine Glucose (UA) NEGATIVE Urine Ketones NEGATIVE Urine Blood SMALL H Urine Nitrite NEGATIVE Ur Leukocyte Esterase LARGE H Urine WBC (Auto) 79 Urine RBC (Auto) 14 03/24/20 15:40 WBC 4.6 RBC 2.99 L Hgb 10.8 L Hct 32.8 L MCV 110 H D MCH 36.2 H MCHC 33.0 RDW 26.5 H Plt Count 29 L* Seg Neutrophils % 88.5 H Sodium Potassium Chloride Carbon Dioxide Anion Gap BUN Creatinine Est GFR ( Amer) Glucose Calcium Total Bilirubin AST Alkaline Phosphatase Total Protein Albumin Urine Color Urine Appearance Urine pH Ur Specific [place] Urine Protein Urine Glucose (UA) Urine Ketones Urine Blood Urine Nitrite Ur Leukocyte Esterase Urine WBC (Auto) Urine RBC (Auto) 03/24/20 03/24/20 14:12 14:12 Creatine Kinase 59 Troponin I 0.124 NT-Pro-B Natriuret Pep [id number] H Impressions: Chest X-Ray 03/24/20 12:23 IMPRESSION: 1. New cardiomegaly. 2. Persistent right basilar infiltrate slightly improved from prior study. Assessment and Plan - Diagnosis (1) Acute kidney injury Is this a current diagnosis for this admission?: Yes (2) Dehydration Is this a current diagnosis for this admission?: Yes (3) Generalized weakness Is this a current diagnosis for this admission?: Yes (4) UTI (urinary tract infection) Qualifiers: Urinary tract infection type: acute cystitis Hematuria presence: without hematuria Qualified Code(s): N30.00 - Acute cystitis without hematuria Is this a current diagnosis for this admission?: Yes (5) COPD (chronic obstructive pulmonary disease) Qualifiers: COPD type: chronic bronchitis Chronic bronchitis type: simple Qualified Code(s): J41.0 - Simple chronic bronchitis Is this a current diagnosis for this admission?: Yes (6) Duodenal ulcer Is this a current diagnosis for this admission?: Yes (7) NYHA class 4 heart failure with reduced ejection fraction Is this a current diagnosis for this admission?: Yes (8) Physical deconditioning Is this a current diagnosis for this admission?: Yes (9) Pulmonary hypertension, moderate to severe Is this a current diagnosis for this admission?: Yes (10) 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 In fact, he is profoundly dehydrated. We will start him on some IV fluids and monitor him for cardiopulmonary d ecompensation. Were going at a very low rate of IV fluids, so I think slowly hydrating him will be more successful. His Lasix will obviously be on hold. We will get a try to get him back on his chronic heart failure medications once they are verified by the pharmacy. We will continue his home medicines for COPD. He has been started on IV antibiotics empirically for UTI, urine cultures pending. His platelets were low, he tends to run low, around 90,000 normally. This is the lowest they have been for some time. I do not think he is actively bleeding. We will continue his Protonix and Carafate. We will hold anticoagulation. At some point he is going to need physical therapy. - Time Time Spent with patient: 35 or more minutes Anticipated Discharge Disposition: [facility] Anticipated Discharge Timeframe: Unknown - Inpatient Certification Based on my medical assessment, after consideration of the patient's comorbidities, presenting symptoms, or acuity I expect that the services needed warrant INPATIENT care.: Yes I certify that my determination is in accordance with my understanding of Medicare's requirements for reasonable and necessary INPATIENT services [42 CFR 412.3e].: Yes Medical Necessity: Significant Comorbidiites Make Outpatient Treatment Too Risky, Need Close Monitoring Due to Risk of Patient Decompensation, Need For IV Fluids, Need For Continuous Telemetry Monitoring, Need for IV Antibiotics, Risk of Complication if Not Cared For in Hospital
[2020-03-24] MEDS: NORMAL SALINE 1000 ML 1,000 ML IV PRN (22:21)
[2020-03-25] MEDS ORDERED: DEXTROSE 50%-WATER SYRINGE 12.5 GM/25 ML DOSE IV PRN (05:00)
[2020-03-25] MEDS ORDERED: GLUCAGON,HUMAN RECOMB 1 MG INJ IM PRN (05:00)
[2020-03-25] MEDS ORDERED: DEXTROSE 40% GEL 15 GM TUBE X 2 PO PRN (05:00)
[2020-03-25] MEDS ORDERED: DEXTROSE 50%-WATER SYRINGE 25 GM/50 ML DOSE IV PRN (05:00)
[2020-03-25] MEDS ORDERED: DEXTROSE 40% GEL 15 GM TUBE PO PRN (05:00)
[2020-03-25 07:02] LABS: HEMATOCRIT 30.8 % (37.9-51.0); HEMOGLOBIN 10.4 g/dL (13.5-17.0); MEAN CORPUSCULAR HEMOGLOBIN 36.2 pg (27.0-33.4); MEAN CORPUSCULAR HGB CONC 33.9 g/dL (32.0-36.0); MEAN CORPUSCULAR VOLUME 107 fl (80-97); RED BLOOD COUNT 2.89 10^6/uL (4.35-5.55); RED CELL DISTRIBUTION WIDTH 26.1 % (11.5-14.0); WHITE BLOOD COUNT 4.4 10^3/uL (4.0-10.5)
[2020-03-25] MEDS: INSULIN LISPRO 100 UNIT/ML 3 ML VIAL SUBCUT SCH ×4 (08:02→21:21)
[2020-03-25 09:13] LABS: ALBUMIN 2.9 g/dL (3.5-5.0); ALKALINE PHOSPHATASE 152 U/L (38-126); ANION GAP 16 (5-19); ASPARTATE AMINO TRANSFERASE 54 U/L (17-59); BILIRUBIN,DIRECT 1.9 mg/dL (0.0-0.4); BILIRUBIN,TOTAL 2.9 mg/dL (0.2-1.3); BLOOD UREA NITROGEN 94 mg/dL (7-20); CALCIUM 9.6 mg/dL (8.4-10.2); CARBON DIOXIDE 17 mmol/L (22-30); CHLORIDE 111 mmol/L (98-107); GLUCOSE 90 mg/dL (75-110); TOTAL PROTEIN 5.5 g/dL (6.3-8.2)
[2020-03-25 09:22] LABS: PLATELET COUNT 50 10^3/uL (150-450)
[2020-03-25] MEDS: CEFTRIAXONE 1 GM/D5W RTU 1 GM/50 ML RTUPB IV SCH (09:46)
[2020-03-25 11:47] LABS: PATH REVIEW PATHOLOGIST REVIEWED
--- NOTE | 2020-03-25 14:19 | PDOC PROGRESS REPORT ---
Subjective Date:: 03/25/20 Subjective:: patient has no complaints, RN unable to get a hold of home meds. Dr. Tonya jeffery ts consult Reason For Visit: MARTHA,DEHYDRATION,FTT Physical Exam Vital Signs: Temp Pulse Resp BP Pulse Ox 97.3 F 90 20 116/73 87 L 03/25/20 00:08 03/25/20 02:00 03/25/20 00:08 03/25/20 00:08 03/25/20 00:08 Intake & Output 03/24/20 03/25/20 03/26/20 06:59 06:59 06:59 Intake Total 350 Balance 350 Weight 46 kg 46 kg General appearance: PRESENT: no acute distress Respiratory exam: PRESENT: clear to auscultation khushboo, other - on [place] O2 1L Cardiovascular exam: PRESENT: RRR Vascular exam: PRESENT: pallor GI/Abdominal exam: PRESENT: soft. ABSENT: tenderness Results Laboratory Results: 03/25/20 06:49 03/25/20 08:35 03/24/20 03/24/20 03/24/20 14:12 14:12 15:40 WBC Cancelled 4.6 RBC Cancelled 2.99 L Hgb Cancelled 10.8 L Hct Cancelled 32.8 L MCV Cancelled 110 H D MCH Cancelled 36.2 H MCHC Cancelled 33.0 RDW Cancelled 26.5 H Plt Count Cancelled 29 L* Seg Neutrophils % Cancelled 88.5 H Sodium 143.4 Potassium 3.8 Chloride 107 Carbon Dioxide 20 L Anion Gap 16 BUN 91 H Creatinine 2.35 H Est GFR ( Amer) 34 L Est GFR (Non-Af Amer) Glucose 86 Calcium 10.2 Total Bilirubin 3.9 H AST 74 H Alkaline Phosphatase 176 H Total Protein 6.5 Albumin 3.3 L 03/25/20 03/25/20 03/25/20 06:49 06:49 08:35 WBC 4.4 RBC 2.89 L Hgb 10.4 L Hct 30.8 L MCV 107 H MCH 36.2 H MCHC 33.9 RDW 26.1 H Plt Count 50 L Seg Neutrophils % Sodium Cancelled 143.5 Potassium Cancelled 4.0 Chloride Cancelled 111 H Carbon Dioxide Cancelled 17 L Anion Gap Cancelled 16 BUN Cancelled 94 H Creatinine Cancelled 2.27 H Est GFR ( Amer) Cancelled 35 L Est GFR (Non-Af Amer) Cancelled Glucose Cancelled 90 Calcium Cancelled 9.6 Total Bilirubin Cancelled 2.9 H AST Cancelled 54 Alkaline Phosphatase Cancelled 152 H Total Protein Cancelled 5.5 L Albumin Cancelled 2.9 L 03/24/20 03/24/20 14:12 14:12 Creatine Kinase 59 Troponin I 0.124 NT-Pro-B Natriuret Pep [id number] H Impressions: Chest X-Ray 03/24/20 12:23 IMPRESSION: 1. New cardiomegaly. 2. Persistent right basilar infiltrate slightly improved from prior study. Assessment and Plan - Diagnosis (1) Physical deconditioning Is this a current diagnosis for this admission?: Yes (2) NYHA class 4 heart failure with reduced ejection fraction Is this a current diagnosis for this admission?: Yes (3) UTI (urinary tract infection) Qualifiers: Urinary tract infection type: acute cystitis Hematuria presence: without hematuria Qualified Code(s): N30.00 - Acute cystitis without hematuria Is this a current diagnosis for this admission?: Yes (4) Acute kidney injury Is this a current diagnosis for this admission?: Yes - Plan Summary Summary: 1. UTI/dehydration: IVF continue 2. MARTHA: continue IVF, Cr improving, foster catheter for I&O monitoring 3. Physical deconditining: PT eval, recently discharged from SNF 4. cardiomyopathy: Ef 25% with recent history of GI bleed, cardiology consult 5. Acute encephalopathy: suspect ischemic vs metabolic, MRI brain ordered. Concern from cloth cutter about depression, at baseline prior to his last hospitalization he was AOx3 - Time Time Spent with patient: 15-24 minutes Anticipated Discharge Disposition: Shelter Facility Anticipated Discharge Timeframe: unknown
[2020-03-25 17:59] LABS: URINE CREATININE 30.1 mg/dL (22-328)
--- NOTE | 2020-03-25 23:14 | PDOC CONSULTATION ---
Consultation-Blank Consultation: CARDIOLOGY CONSULTATION by Dr. Alicia Brizuela. Patient seen at 12:30 PM. 60 minutes spent as patient with more than 50% of time spent in direct patient care. Reason FOR CONSULTATION: Patient of mine with history of CAD and CVA cardiomyopathy and pulmonary hypertension admitted for dehydration and forward pump failure. CONSULT REQUESTING PHYSICIAN[facility] 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 He was recently diagnosed with gastric ulcer and was placed on twice a day proton pump inhibitor plus Carafate. The patient towards the end of December and most part of December was admitted during [facility] this was complicated by recurrent GI bleeding causing his hemoglobin to drop to 6.1. The patient received a total of 14 units and he had to be endoscoped and 3 cauterizations of bleeding gastric during that admission he was stabilized and was discharged to care home facility. Ulcer. He was there until a few days ago he was discharged to his home at the patient's insistence. He lives at home alone. He was found today by the home health nurse. He was covered in his own urine and feces, and has some excoriation to the right hip, right buttocks, and perianal area. He said he has been too weak to get out of bed for the past 3 days. He has had very little to eat or drink during that time. His vital signs have been stable. He has not had any fever, chest pain, or shortness of breath. No abdominal pain. No dysuria. He does not know who his doctor is but he says he [facility]. But he does regularly follow-up with me in my office for cardiology visits. He does not know the name of all of his medications. He does not know all of his health problems. What is listed above was learned from the electronic medical record here, and from my office. He was found with very low platelets on his CBC. His hemoglobin was in the normal range. His stool was guaiac positive, but his stool was brown, leading us to think that his thrombocytopenia and his diarrhea over the past few days is what likely made his stool guaiac positive. His BUN was substantially elevated. His creatinine was elevated substantially above baseline. Troponin was checked but it was equivocal. BNP was also substantially elevated and he got a dose of Bumex since the ER physician told me that the patient was not heart failure. In fact the patient is very dry. The patient has a past history of compromised renal function which did at times come back to normal. He denies chest pain or discomfort. There is no shortness of breath cough or sputum production or wheezing. There is no PND orthopnea or leg edema. There is no firing of his AICD. Cardiac Medical History: Reports: Congestive Heart Failure, Myocardial Infarction, Hyperlipidema, Hypertension. History of severe cardiomyopathy, and history of AICD placement. Pulmonary Medical History: Reports: Chronic Obstructive Pulmonary Disease (COPD) GI Medical History: Reports: Gastroesophageal Reflux Disease. History of gastric ulcer with bleeding. History of significant GI bleed causing hemoglobin dropped to 6.1. Psychiatric Medical History: He has depression, but no anxiety. 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 No headaches migraines or seizures. Past Surgical History Past Surgical History: Reports: Cardiac Catheterization - CABG, Coronary Artery Bypass Graft, Herniorrhaphy - bilateral inguinal hernia repair, Orthopedic Surgery, AICD placement. Social History Smoking Status: Current Every Day Smoker Frequency of Alcohol Use: None Hx Recreational Drug Use: No Hx Prescription Drug Abuse: No Family History Family History: Reviewed & Not Pertinent Parental Family History Reviewed: Yes Children Family History Reviewed: Yes Sibling(s) Family History Reviewed.: Yes Medication/Allergies: No known allergies. RESUSCITATION STATUS: The patient is a DNR. 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 REVIEW of SYSTEMS: Patient very drowsy and somnolent. Hence difficulty getting review of symptoms. He denies fever chills or rigors. He denies chest pain or shortness of breath is able to lie down flat. No further information can be obtained. Current Medications Generic Name Dose Route Start Last Admin Trade Name Freq PRN Reason Stop Dose Admin Dextrose 12.5 gm 03/25/20 05:00 Dextrose 50%-Water Syringe 12.5 Gm/25 Ml Dose IV 04/24/20 04:59 PRN PRN FOR BG 50-69 IN ALERT PATIENT Protocol Dextrose 25 gm 03/25/20 05:00 Dextrose 50%-Water Syringe 25 Gm/50 Ml Dose IV 04/24/20 04:59 PRN PRN Protocol Glucagon 1 mg 03/25/20 05:00 Glucagon,Human Recomb 1 Mg Inj IM 04/24/20 04:59 PRN PRN EVALUATE FOR BG < 70 Protocol Glucose 15 gm 03/25/20 05:00 Dextrose 40% Gel 15 Gm Tube PO 04/24/20 04:59 PRN PRN FOR BG 50-69 IN ALERT PATIENT Protocol Glucose 30 gm 03/25/20 05:00 Dextrose 40% Gel 15 Gm Tube X 2 PO 04/24/20 04:59 PRN PRN FOR BG < 50 IN ALERT PATIENT Protocol Sodium Chloride 1,000 mls @ 75 mls/hr 03/24/20 16:36 03/24/20 22:21 Nacl 0.9% 1000 Ml Iv Soln IV 04/23/20 16:35 75 mls/hr CONTINUOUS PRN Administration THIS MED IS NOT "PRN" Ceftriaxone Sodium/Dextrose 1 gm in 50 mls @ 100 mls/hr 03/25/20 10:00 03/25/20 10:16 Rocephin Rtu 1 Gm/D5w 50 Ml Premix IV 04/01/20 09:59 Infused DAILY DENG Infusion Insulin Human Lispro 0 - 12 unit 03/25/20 08:00 03/25/20 21:21 Insulin Lispro 100 Unit/Ml 3 Ml Vial SUBCUT 04/24/20 07:59 Not Given ACHS DENG Protocol Ondansetron HCl 4 mg 03/25/20 13:30 Ondansetron Hcl Inj/Pf 4 Mg/2 Ml Sdv IV 04/23/20 16:36 Q4HP PRN FOR NAUSEA/VOMITING Discontinued Medications Generic Name Dose Route Start Last Admin Trade Name Freq PRN Reason Stop Dose Admin Albuterol/Ipratropium 3 ml 03/24/20 15:11 03/24/20 15:46 Ipratropium/Albuterol 0.5-2.5 Mg/3 Ml Ampul NEB 03/24/20 15:12 3 ml NOW ONE Administration Bumetanide 1 mg 03/24/20 16:20 03/24/20 19:46 Bumetanide Inj/Pf 1 Mg/4 Ml Sdv IV 03/24/20 16:21 1 mg NOW ONE Administration Ceftriaxone Sodium 1,000 mg 03/24/20 14:24 03/24/20 15:42 Ceftriaxone Inj 1000 Mg Vial IV 03/24/20 14:25 1,000 mg IVBAG (ED) ONE Administration Famotidine 20 mg 03/24/20 14:21 03/24/20 14:52 Famotidine Inj/Pf 20 Mg/2 Ml Sdv IV 03/24/20 14:22 20 mg NOW ONE Administration Ondansetron HCl 4 mg 03/24/20 14:54 03/24/20 15:00 Ondansetron Hcl Inj/Pf 4 Mg/2 Ml Sdv IV 03/24/20 14:55 4 mg NOW ONE Administration Ondansetron HCl 4 mg 03/24/20 16:37 03/24/20 20:46 Ondansetron Hcl Inj/Pf 4 Mg/2 Ml Sdv IV 04/23/20 16:36 4 mg Q4HP PRN Administration FOR NAUSEA/VOMITING Pantoprazole Sodium 80 mg 03/24/20 14:22 03/24/20 14:52 Pantoprazole Sodium 40 Mg Vial IV 03/24/20 14:23 80 mg .BOLUS (IVBAG) ONE Administration PHYSICAL EXAMINATION: The patient is a frail build and appears to be chronically ill and malnourished. Selected Entries 01/18/20 01/18/20 01/18/20 10:00 14:53 15:00 Temperature 97.8 F Temperature Source Pulse Rate 75 Respiratory Rate Blood Pressure 118/60 Blood Pressure 79 Mean BP Location BP Position O2 Sat by Pulse Oximetry Oxygen Delivery Room Air Method ( includes room air) Oxygen Flow Rate Oxygen Delivery Method O2 Sat by Pulse 96 Oximetry by Telemetry 01/28/20 03/25/20 08:23 11:57 Temperature 98.5 F 98.2 F Temperature Oral Axillary Source Pulse Rate 68 90 Respiratory 18 16 Rate Blood Pressure 133/70 H 115/66 Blood Pressure 91 82 Mean BP Location Right Arm Left Arm BP Position Sitting Supine O2 Sat by Pulse 95 98 Oximetry Oxygen Delivery Method ( includes room air) Oxygen Flow 2.00 Rate Oxygen Delivery Room Air Nasal Cannula Method O2 Sat by Pulse Oximetry by Telemetry HEAD: Is atraumatic normocephalic. EYES: Pupils are equal round regular reactive to light and accommodation. Extraocular movements are normal. There is no conjunctival pallor. There is no scleral icterus. EARS: Tympanic membranes are intact. External auditory canals are clear. NOSE: There is no deviated nasal septum. There is no inflammation of the nasal mucous membrane. MOUTH: Mucous membranes of mouth are dry tongue is still dry. THROAT: There is no redness of the oropharynx. There is no exudates. 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 There is no catie-care ecchymosis. NECK: Supple. There is no JVD present. Carotids are equal there is no bruit. There is no lymphadenopathy. There is no goiter. There is no accessory muscle respiration use. Trachea central. LUNGS: Shows diminished air entry prolonged expiration . There is no rhonchi or rales or wheezing. There is no chest wall tenderness on palpation. On palpation there is hyperresonance. There is no bibasilar rales of heart failure. HEART: S1-S2 is heard. There is no S3 gallop. There is no S4 gallop there is systolic murmur left sternal border and the apex there is no rub. ABDOMEN: Soft. There is no hepatosplenomegaly. Bowel sounds are normal. There is no hepatosplenomegaly. EXTREMITIES: There is diminished bilateral femoral pulses with bruits. 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 He has bilateral femoral bruits present. Leg pulses are diminished. There is no pedal edema bilaterally. There is no DVT or cellulitis. There is no cyanosis or clubbing. 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 SINUS TACHYCARDIA [LVOLF] . LOW VOLTAGE IN FRONTAL LEADS [LVHREP] . LVH WITH SECONDARY REPOLARIZATION. Prolonged QT interval. Labs- Entire Visit 03/24/20 03/24/20 03/24/20 12:38 12:38 14:12 WBC Cancelled RBC Cancelled Hgb Cancelled Hct Cancelled MCV Cancelled MCH Cancelled MCHC Cancelled RDW Cancelled Plt Count Cancelled Lymph % (Auto) Cancelled [place] % (Auto) Cancelled Eos % (Auto) Cancelled Baso % (Auto) Cancelled Absolute Neuts (auto) Cancelled Absolute Lymphs (auto) Cancelled Absolute Monos (auto) Cancelled Absolute Eos (auto) Cancelled Absolute Basos (auto) Cancelled Seg Neutrophils % Cancelled Platelet Estimate Cancelled Platelet Comment Polychromasia Anisocytosis Macrocytosis Ovalocytes [place] Bodies Mickey Cells PT INR Sodium Potassium Chloride Carbon Dioxide Anion Gap BUN Creatinine Est GFR ( Amer) Est GFR (Non-Af Amer) Est GFR (MDRD) Non-Af Glucose POC Glucose Calcium Total Bilirubin Direct Bilirubin Neonat Total Bilirubin Neonat Direct Bilirubin Neonat Indirect Bili AST ALT Alkaline Phosphatase Creatine Kinase Troponin I NT-Pro-B Natriuret Pep Total Protein Albumin EGFR Urine Color DARK YELLOW Urine Appearance SLIGHTLY-CLOUDY Urine pH 5.0 Ur Specific [place] 1.019 Urine Protein 30 H Urine Glucose (UA) NEGATIVE Urine Ketones NEGATIVE Urine Blood SMALL H Urine Nitrite NEGATIVE Urine Bilirubin NEGATIVE Urine Urobilinogen NEGATIVE Ur Leukocyte Esterase LARGE H Urine WBC (Auto) 79 Urine RBC (Auto) 14 U Hyaline Cast (Auto) 10 Urine Bacteria (Auto) TRACE Squamous Epi Cells Auto 1 Urine Mucus (Auto) RARE Urine Creatinine Urine Sodium Urine Ascorbic Acid NEGATIVE Stl C. Difficile GDH Ag NEGATIVE Stl C.difficile Tox A&B NEGATIVE Slides for Path Review Cancelled 03/24/20 03/24/20 03/24/20 14:12 14:12 14:12 WBC RBC Hgb Hct MCV MCH MCHC RDW Plt Count Lymph % (Auto) [place] % (Auto) Eos % (Auto) Baso % (Auto) Absolute Neuts (auto) Absolute Lymphs (auto) Absolute Monos (auto) Absolute Eos (auto) Absolute Basos (auto) Seg Neutrophils % Platelet Estimate Platelet Comment Polychromasia Anisocytosis Macrocytosis Ovalocytes [place] Bodies Mickey Cells PT 24.9 H INR 2.25 Sodium 143.4 Potassium 3.8 Chloride 107 Carbon Dioxide 20 L Anion Gap 16 BUN 91 H Creatinine 2.35 H Est GFR ( Amer) 34 L Est GFR (Non-Af Amer) Est GFR (MDRD) Non-Af 28 L Glucose 86 POC Glucose Calcium 10.2 Total Bilirubin 3.9 H Direct Bilirubin 2.1 H Neonat Total Bilirubin Not Reportable Neonat Direct Bilirubin Not Reportable Neonat Indirect Bili Not Reportable AST 74 H ALT 104 H Alkaline Phosphatase 176 H Creatine Kinase 59 Troponin I 0.124 NT-Pro-B Natriuret Pep [id number] H Total Protein 6.5 Albumin 3.3 L EGFR Urine Color Urine Appearance Urine pH Ur Specific [place] Urine Protein Urine Glucose (UA) Urine Ketones Urine Blood Urine Nitrite Urine Bilirubin Urine Urobilinogen Ur Leukocyte Esterase Urine WBC (Auto) Urine RBC (Auto) U Hyaline Cast (Auto) Urine Bacteria (Auto) Squamous Epi Cells Auto Urine Mucus (Auto) Urine Creatinine Urine Sodium Urine Ascorbic Acid Stl C. Difficile GDH Ag Stl C.difficile Tox A&B Slides for Path Review 03/24/20 03/25/20 03/25/20 15:40 01:16 06:49 WBC 4.6 4.4 RBC 2.99 L 2.89 L Hgb 10.8 L 10.4 L Hct 32.8 L 30.8 L MCV 110 H D 107 H MCH 36.2 H 36.2 H MCHC 33.0 33.9 RDW 26.5 H 26.1 H Plt Count 29 L* 50 L Lymph % (Auto) 6.8 L [place] % (Auto) 4.2 Eos % (Auto) 0.1 Baso % (Auto) 0.4 Absolute Neuts (auto) 4.1 Absolute Lymphs (auto) 0.3 L Absolute Monos (auto) 0.2 Absolute Eos (auto) 0.0 Absolute Basos (auto) 0.0 Seg Neutrophils % 88.5 H Platelet Estimate Platelet Comment DECREASED Polychromasia 1+ Anisocytosis 3+ Macrocytosis 2+ Ovalocytes 1+ [place] Bodies PRESENT [place] Cells 1+ PT INR Sodium Potassium Chloride Carbon Dioxide Anion Gap BUN Creatinine Est GFR ( Amer) Est GFR (Non-Af Amer) Est GFR (MDRD) Non-Af Glucose POC Glucose 75 Calcium Total Bilirubin Direct Bilirubin Neonat Total Bilirubin Neonat Direct Bilirubin Neonat Indirect Bili AST ALT Alkaline Phosphatase Creatine Kinase Troponin I NT-Pro-B Natriuret Pep Total Protein Albumin EGFR Urine Color Urine Appearance Urine pH Ur Specific [place] Urine Protein Urine Glucose (UA) Urine Ketones Urine Blood Urine Nitrite Urine Bilirubin Urine Urobilinogen Ur Leukocyte Esterase Urine WBC (Auto) Urine RBC (Auto) U Hyaline Cast (Auto) Urine Bacteria (Auto) Squamous Epi Cells Auto Urine Mucus (Auto) Urine Creatinine Urine Sodium Urine Ascorbic Acid Stl C. Difficile GDH Ag Stl C.difficile Tox A&B Slides for Path Review PATHOLOGIST REVIEWED 03/25/20 03/25/20 03/25/20 06:49 07:59 08:35 WBC RBC Hgb Hct MCV MCH MCHC RDW Plt Count Lymph % (Auto) [place] % (Auto) Eos % (Auto) Baso % (Auto) Absolute Neuts (auto) Absolute Lymphs (auto) Absolute Monos (auto) Absolute Eos (auto) Absolute Basos (auto) Seg Neutrophils % Platelet Estimate Platelet Comment Polychromasia Anisocytosis Macrocytosis Ovalocytes [place] Bodies Mickey Cells PT INR Sodium Cancelled 143.5 Potassium Cancelled 4.0 Chloride Cancelled 111 H Carbon Dioxide Cancelled 17 L Anion Gap Cancelled 16 BUN Cancelled 94 H Creatinine Cancelled 2.27 H Est GFR ( Amer) Cancelled 35 L Est GFR (Non-Af Amer) Cancelled Est GFR (MDRD) Non-Af Cancelled 29 L Glucose Cancelled 90 POC Glucose 97 Calcium Cancelled 9.6 Total Bilirubin Cancelled 2.9 H Direct Bilirubin Cancelled 1.9 H Neonat Total Bilirubin Cancelled Not Reportable Neonat Direct Bilirubin Cancelled Not Reportable Neonat Indirect Bili Cancelled Not Reportable AST Cancelled 54 ALT Cancelled 89 H Alkaline Phosphatase Cancelled 152 H Creatine Kinase Troponin I NT-Pro-B Natriuret Pep Total Protein Cancelled 5.5 L Albumin Cancelled 2.9 L EGFR Cancelled Urine Color Urine Appearance Urine pH Ur Specific [place] Urine Protein Urine Glucose (UA) Urine Ketones Urine Blood Urine Nitrite Urine Bilirubin Urine Urobilinogen Ur Leukocyte Esterase Urine WBC (Auto) Urine RBC (Auto) U Hyaline Cast (Auto) Urine Bacteria (Auto) Squamous Epi Cells Auto Urine Mucus (Auto) Urine Creatinine Urine Sodium Urine Ascorbic Acid Stl C. Difficile GDH Ag Stl C.difficile Tox A&B Slides for Path Review 03/25/20 03/25/20 03/25/20 11:55 16:34 17:20 WBC RBC Hgb Hct MCV MCH MCHC RDW Plt Count Lymph % (Auto) [place] % (Auto) Eos % (Auto) Baso % (Auto) Absolute Neuts (auto) Absolute Lymphs (auto) Absolute Monos (auto) Absolute Eos (auto) Absolute Basos (auto) Seg Neutrophils % Platelet Estimate Platelet Comment Polychromasia Anisocytosis Macrocytosis Ovalocytes [place] Bodies [place] Cells PT INR Sodium Potassium Chloride Carbon Dioxide Anion Gap BUN Creatinine Est GFR ( Amer) Est GFR (Non-Af Amer) Est GFR (MDRD) Non-Af Glucose POC Glucose 108 108 Calcium Total Bilirubin Direct Bilirubin Neonat Total Bilirubin Neonat Direct Bilirubin Neonat Indirect Bili AST ALT Alkaline Phosphatase Creatine Kinase Troponin I NT-Pro-B Natriuret Pep Total Protein Albumin EGFR Urine Color Urine Appearance Urine pH Ur Specific [place] Urine Protein Urine Glucose (UA) Urine Ketones Urine Blood Urine Nitrite Urine Bilirubin Urine Urobilinogen Ur Leukocyte Esterase Urine WBC (Auto) Urine RBC (Auto) U Hyaline Cast (Auto) Urine Bacteria (Auto) Squamous Epi Cells Auto Urine Mucus (Auto) Urine Creatinine 30.1 Urine Sodium 90 Urine Ascorbic Acid Stl C. Difficile GDH Ag Stl C.difficile Tox A&B Slides for Path Review 03/25/20 20:27 WBC RBC Hgb Hct MCV MCH MCHC RDW Plt Count Lymph % (Auto) [place] % (Auto) Eos % (Auto) Baso % (Auto) Absolute Neuts (auto) Absolute Lymphs (auto) Absolute Monos (auto) Absolute Eos (auto) Absolute Basos (auto) Seg Neutrophils % Platelet Estimate Platelet Comment Polychromasia Anisocytosis Macrocytosis Ovalocytes [place] Bodies Mickey Cells PT INR Sodium Potassium Chloride Carbon Dioxide Anion Gap BUN Creatinine Est GFR ( Amer) Est GFR (Non-Af Amer) Est GFR (MDRD) Non-Af Glucose POC Glucose 134 H Calcium Total Bilirubin Direct Bilirubin Neonat Total Bilirubin Neonat Direct Bilirubin Neonat Indirect Bili AST ALT Alkaline Phosphatase Creatine Kinase Troponin I NT-Pro-B Natriuret Pep Total Protein Albumin EGFR Urine Color Urine Appearance Urine pH Ur Specific [place] Urine Protein Urine Glucose (UA) Urine Ketones Urine Blood Urine Nitrite Urine Bilirubin Urine Urobilinogen Ur Leukocyte Esterase Urine WBC (Auto) Urine RBC (Auto) U Hyaline Cast (Auto) Urine Bacteria (Auto) Squamous Epi Cells Auto Urine Mucus (Auto) Urine Creatinine Urine Sodium Urine Ascorbic Acid Stl C. Difficile GDH Ag Stl C.difficile Tox A&B Slides for Path Review Chest X-Ray 03/24/20 12:23 IMPRESSION: 1. New cardiomegaly. 2. Persistent right basilar infiltrate slightly improved from prior study. IMPRESSION/RECOMMENDATION: 1. Severe dehydration: Agree with gentle hydration watch for volume overload. 2. Acute renal failure: Secondary to dehydration and also possibly decreased cardiac output secondary to decrease in optimal preload due to dehydration. 3. Thrombocytopenia: Watch for overt bleeding. 4. History of severe GI bleed and anemia secondary to gastric ulcer. Watch out for recurrence of bleeding. 5. History of gastric ulcer with bleeding. Later would see if the patient can have a repeat endoscopy to see if the ulcer is healed. 6. Cardiomyopathy with severely reduced LV ejection fraction. In view of the patient's renal function status agree with holding the patient's Entrest[place] for now. Restart later after hydration. 7. Coronary artery disease: History of RI: No anginal symptoms. 8. Severe pulmonary hypertension: Secondary to left heart failure and due to COPD. 9.COPD: No evidence of acute exacerbation. 10. History of hypertension: The patient in the recent past has been on midodrine. The patient's blood pressure stable at present. 11. Hypothyroidism: Continue replacement 12. AICD placement: No firing of his AICD. Medications reviewed. Medical regimen and management plan discussed with attending provider on the case. Medical decision making is of high complexity. 60 minutes spent on this patient more than 50% time spent direct patient care. Will follow
[2020-03-26] MEDS: NORMAL SALINE 1000 ML 1,000 ML IV PRN (01:10)
[2020-03-26 06:37] LABS: HEMATOCRIT 32.3 % (37.9-51.0); HEMOGLOBIN 10.9 g/dL (13.5-17.0); MEAN CORPUSCULAR HEMOGLOBIN 36.6 pg (27.0-33.4); MEAN CORPUSCULAR HGB CONC 33.7 g/dL (32.0-36.0); MEAN CORPUSCULAR VOLUME 109 fl (80-97); RED BLOOD COUNT 2.98 10^6/uL (4.35-5.55); RED CELL DISTRIBUTION WIDTH 26.1 % (11.5-14.0); WHITE BLOOD COUNT 3.4 10^3/uL (4.0-10.5)
[2020-03-26 06:58] LABS: ALKALINE PHOSPHATASE 162 U/L (38-126); ANION GAP 9 (5-19); ASPARTATE AMINO TRANSFERASE 62 U/L (17-59); BILIRUBIN,DIRECT 1.7 mg/dL (0.0-0.4); BILIRUBIN,TOTAL 2.6 mg/dL (0.2-1.3); BLOOD UREA NITROGEN 90 mg/dL (7-20); CALCIUM 9.1 mg/dL (8.4-10.2); CARBON DIOXIDE 21 mmol/L (22-30); CHLORIDE 112 mmol/L (98-107); GLUCOSE 94 mg/dL (75-110); POTASSIUM 4.1 mmol/L (3.6-5.0); TOTAL PROTEIN 6.4 g/dL (6.3-8.2)
[2020-03-26 07:37] LABS: PLATELET COUNT 23 10^3/uL (150-450)
[2020-03-26] MEDS: INSULIN LISPRO 100 UNIT/ML 3 ML VIAL SUBCUT SCH ×4 (08:29→21:32)
--- NOTE | 2020-03-26 09:59 | RADIOLOGY REPORT (SQ) ---
EXAM DESCRIPTION: U/S RETROPERITON (RENAL/AORTA) IMAGES COMPLETED DATE/TIME: 03/26/2020 8:40 am REASON FOR STUDY: renal failure COMPARISON: CT abdomen and pelvis, 01/12/2020 TECHNIQUE: Dynamic and static grayscale images acquired of the kidneys and bladder and recorded on P ACS. Additional selected color Doppler and spectral images recorded. LIMITATIONS: None. FINDINGS: RIGHT KIDNEY: Normal size. Normal echogenicity. Multiple renal cysts, the largest measuri ng 7.6 x 6.4 x 6.2 cm. No solid or suspicious masses. No hydronephrosis. No calcifications. LEFT KIDNEY: Left kidney is atrophic measuring about 6.3 cm in length. There are several renal juan ical cysts. No solid renal mass. No hydronephrosis. No calcifications. BLADDER: Serrano catheter within the urinary bladder which is decompressed. OTHER FINDINGS: No other significant finding. IMPRESSION: Unchanged bilateral renal cortical cysts and left renal atrophy. No hydronephrosis. TECHNICAL DOCUMENTATION: JOB ID: [id number] 2010 [employer]- All Rights Reserved Reading location - IP/workstation name: [email or web address]
[2020-03-26] MEDS: CEFTRIAXONE 1 GM/D5W RTU 1 GM/50 ML RTUPB IV SCH (10:19)
--- NOTE | 2020-03-26 10:43 | PDOC PROGRESS REPORT ---
Subjective Date:: 03/26/20 Subjective:: patient denies chest pain, sob, no concerns per RN overnight Reason For Visit: MARTHA,DEHYDRATION,FTT Physical Exam Vital Signs: Temp Pulse Resp BP Pulse Ox 97.5 F 82 20 122/79 98 03/26/20 00:20 03/26/20 07:00 03/26/20 00:20 03/26/20 00:20 03/26/20 00:20 Intake & Output 03/25/20 03/26/20 03/27/20 06:59 06:59 06:59 Intake Total 350 1670 Output Total 845 Balance 350 825 Weight 46 kg 46.2 kg General appearance: PRESENT: no acute distress Respiratory exam: PRESENT: clear to auscultation khushboo - on2L Nc O2 Cardiovascular exam: PRESENT: RRR, other - no pedal edema Gentrourinary exam: PRESENT: other - foster with clear yellow urine Results Laboratory Results: 03/26/20 06:09 03/26/20 06:09 03/24/20 03/26/20 03/26/20 15:40 06:09 06:09 WBC 3.4 L RBC 2.98 L Hgb 10.9 L Hct 32.3 L MCV 109 H MCH 36.6 H MCHC 33.7 RDW 26.1 H Plt Count 29 L* 23 L* Sodium 142.1 Potassium 4.1 Chloride 112 H Carbon Dioxide 21 L Anion Gap 9 BUN 90 H Creatinine 2.28 H Est GFR ( Amer) 35 L Glucose 94 Calcium 9.1 Total Bilirubin 2.6 H AST 62 H Alkaline Phosphatase 162 H Total Protein 6.4 Albumin 3.0 L 03/24/20 12:38 Clean Catch Midstream Urine Culture - Final Mixed Urogenital Sarai 03/24/20 03/24/20 03/26/20 14:12 14:12 06:09 Creatine Kinase 59 Troponin I 0.124 NT-Pro-B Natriuret Pep [id number] H [id number] H Impressions: Chest X-Ray 03/24/20 12:23 IMPRESSION: 1. New cardiomegaly. 2. Persistent right basilar infiltrate slightly improved from prior study. Renal Ultrasound 03/26/20 00:00 IMPRESSION: Unchanged bilateral renal cortical cysts and left renal atrophy. No hydronephrosis. Assessment and Plan - Diagnosis (1) Physical deconditioning Is this a current diagnosis for this admission?: Yes (2) NYHA class 4 heart failure with reduced ejection fraction Is this a current diagnosis for this admission?: Yes (3) UTI (urinary tract infection) Qualifiers: Urinary tract infection type: acute cystitis Hematuria presence: without hematuria Qualified Code(s): N30.00 - Acute cystitis without hematuria Is this a current diagnosis for this admission?: Yes (4) Acute kidney injury Is this a current diagnosis for this admission?: Yes (5) Transaminitis Is this a current diagnosis for this admission?: Yes - Plan Summary Summary: 1. UTI/dehydration: Iimproved on rocephin awaiting UCx 2. MARTHA: hold IVF suspect hepatic congestion, continue foster catheter for I&O monitoring. U/S renal shows renal cortical cysts, his mucosa are moist, oral intake today 3. Physical deconditining: PT eval 4. cardiomyopathy: Ef 25% with recent history of GI bleed, cardiology to continue to follow 5. Acute encephalopathy: suspect ischemic vs metabolic, MRI brain ordered. consider SNF at DC, concern for med/management safely 6. COPD with chronic hypoxia 2L: not in exacerbation 7. Thrombocytopenia: no actively bleeding per RN - Time Time Spent with patient: 15-24 minutes Anticipated Discharge Disposition: Snf Facility Anticipated Discharge Timeframe: within 72 hours
--- NOTE | 2020-03-26 14:18 | Progress Note ---
Provider Note Provider Note: CARDIOLOGY PROGRESS NOTE by Dr. Alicia Brizuela on 03/26/2020 Subjective: Patient more awake today. States he feels a little better. But still overall complains of generalized fatigue and weakness. He is able to lie down flat. There is no chest pain or discomfort. There is no anginal symptoms. There is no leg edema. There is no PND orthopnea. He states he continues to have diarrhea. There is no arrhythmias seen on the monitor. There is no firing of his AICD. PHYSICAL EXAMINATION: The patient appears to be chronically ill and malnourished. Selected Entries 03/26/20 00:20 Temperature 97.5 F Temperature Oral Source Pulse Rate 94 Respiratory 20 Rate Blood Pressure 122/79 Blood Pressure 93 Mean BP Location Right Arm BP Position Supine O2 Sat by Pulse 98 Oximetry Oxygen Flow 2.00 Rate Oxygen Delivery Nasal Cannula Method HEAD: Is atraumatic normocephalic. EYES: Pupils are equal round regular reactive to light and accommodation. Extraocular movements are normal. There is no conjunctival pallor. There is no scleral icterus. EARS: Tympanic membranes are intact. External auditory canals are clear. NOSE: There is no deviated nasal septum. There is no inflammation of the nasal mucous membrane. MOUTH: Mucous membranes of mouth are dry tongue is still dry. THROAT: There is no redness of the oropharynx. There is no exudates. 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 There is no catie-care ecchymosis. NECK: Supple. There is no JVD present. Carotids are equal there is no bruit. There is no lymphadenopathy. There is no goiter. There is no accessory muscle respiration use. Trachea central. LUNGS: Shows diminished air entry prolonged expiration . There is no rhonchi or rales or wheezing. There is no chest wall tenderness on palpation. On palpation there is hyperresonance. There is no bibasilar rales of heart failure. HEART: S1-S2 is heard. There is no S3 gallop. There is no S4 gallop there is systolic murmur left sternal border and the apex there is no rub. ABDOMEN: Soft. There is no hepatosplenomegaly. Bowel sounds are normal. There is no hepatosplenomegaly. EXTREMITIES: There is diminished bilateral femoral pulses with bruits. 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 He has bilateral femoral bruits present. Leg pulses are diminished. There is no pedal edema bilaterally. There is no DVT or cellulitis. There is no cyanosis or clubbing. TEST ADMINISTRATOR: The patient is asleep, but when aroused/awaken he is oriented x3 with no focal deficit. Labs- All tests 24 hr 03/25/20 03/25/20 03/25/20 16:34 17:20 20:27 WBC RBC Hgb Hct MCV MCH MCHC RDW Plt Count Sodium Potassium Chloride Carbon Dioxide Anion Gap BUN Creatinine Est GFR ( Amer) Est GFR (MDRD) Non-Af Glucose POC Glucose 108 134 H Calcium Total Bilirubin Direct Bilirubin Neonat Total Bilirubin Neonat Direct Bilirubin Neonat Indirect Bili AST ALT Alkaline Phosphatase NT-Pro-B Natriuret Pep Total Protein Albumin Urine Creatinine 30.1 Urine Sodium 90 03/26/20 03/26/20 03/26/20 06:09 06:09 06:09 WBC 3.4 L RBC 2.98 L Hgb 10.9 L Hct 32.3 L MCV 109 H MCH 36.6 H MCHC 33.7 RDW 26.1 H Plt Count 23 L* Sodium 142.1 Potassium 4.1 Chloride 112 H Carbon Dioxide 21 L Anion Gap 9 BUN 90 H Creatinine 2.28 H Est GFR ( Amer) 35 L Est GFR (MDRD) Non-Af 29 L Glucose 94 POC Glucose Calcium 9.1 Total Bilirubin 2.6 H Direct Bilirubin 1.7 H Neonat Total Bilirubin Not Reportable Neonat Direct Bilirubin Not Reportable Neonat Indirect Bili Not Reportable AST 62 H ALT 84 H Alkaline Phosphatase 162 H NT-Pro-B Natriuret Pep 124780 H Total Protein 6.4 Albumin 3.0 L Urine Creatinine Urine Sodium 03/26/20 03/26/20 08:21 12:03 WBC RBC Hgb Hct MCV MCH MCHC RDW Plt Count Sodium Potassium Chloride Carbon Dioxide Anion Gap BUN Creatinine Est GFR ( Amer) Est GFR (MDRD) Non-Af Glucose POC Glucose 88 121 H Calcium Total Bilirubin Direct Bilirubin Neonat Total Bilirubin Neonat Direct Bilirubin Neonat Indirect Bili AST ALT Alkaline Phosphatase NT-Pro-B Natriuret Pep Total Protein Albumin Urine Creatinine Urine Sodium Chest X-Ray 03/24/20 12:23 IMPRESSION: 1. New cardiomegaly. 2. Persistent right basilar infiltrate slightly improved from prior study. Renal Ultrasound 03/26/20 00:00 IMPRESSION: Unchanged bilateral renal cortical cysts and left renal atrophy. No hydronephrosis. IMPRESSION/RECOMMENDATION: 1. Severe dehydration: Agree with gentle hydration watch for volume overload. 2. Acute renal failure: Secondary to dehydration and also possibly decreased cardiac output secondary to decrease in optimal preload due to dehydration. 3. Thrombocytopenia: Watch for overt bleeding. 4. History of severe GI bleed and anemia secondary to gastric ulcer. Watch out for recurrence of bleeding. 5. History of gastric ulcer with bleeding. Later would see if the patient can have a repeat endoscopy to see if the ulcer is healed. 6. Cardiomyopathy with severely reduced LV ejection fraction. In view of the patient's renal function status agree with holding the patient's Entresto for now. Restart later after hydration. 7. Coronary artery disease: History of [place]: No anginal symptoms. 8. Severe pulmonary hypertension: Secondary to left heart failure and due to COPD. 9.COPD: No evidence of acute exacerbation. 10. History of hypertension: The patient in the recent past has been on midodrine. The patient's blood pressure stable at present. 11. Hypothyroidism: Continue replacement 12. AICD placement: No firing of his AICD. Medications reviewed. Medical regimen and management plan discussed with attending provider on the case. Medical decision making is of high complexity. 60 minutes spent on this patient more than 50% time spent direct patient care. Will follow.
[2020-03-26] MEDS: MEGESTROL ACETATE SUSP 400 MG/10 ML UDCUP PO SCH (16:01)
[2020-03-26] MEDS ORDERED: LOPERAMIDE HCL 2 MG CAPSULE PO PRN (16:32)
[2020-03-27 04:53] LABS: HEMATOCRIT 29.1 % (37.9-51.0); HEMOGLOBIN 9.8 g/dL (13.5-17.0); MEAN CORPUSCULAR HGB CONC 33.7 g/dL (32.0-36.0); MEAN CORPUSCULAR VOLUME 107 fl (80-97); RED BLOOD COUNT 2.73 10^6/uL (4.35-5.55); RED CELL DISTRIBUTION WIDTH 25.4 % (11.5-14.0); WHITE BLOOD COUNT 2.4 10^3/uL (4.0-10.5)
[2020-03-27 05:10] LABS: ALKALINE PHOSPHATASE 159 U/L (38-126); ANION GAP 10 (5-19); ASPARTATE AMINO TRANSFERASE 48 U/L (17-59); BILIRUBIN,DIRECT 1.3 mg/dL (0.0-0.4); BILIRUBIN,TOTAL 1.9 mg/dL (0.2-1.3); BLOOD UREA NITROGEN 84 mg/dL (7-20); CALCIUM 9.1 mg/dL (8.4-10.2); CARBON DIOXIDE 20 mmol/L (22-30); CHLORIDE 112 mmol/L (98-107); GLUCOSE 108 mg/dL (75-110); POTASSIUM 4.1 mmol/L (3.6-5.0); TOTAL PROTEIN 5.6 g/dL (6.3-8.2)
[2020-03-27 05:15] LABS: PLATELET COUNT 23 10^3/uL (150-450)
[2020-03-27 05:25] LABS: ALBUMIN 2.7 g/dL (3.5-5.0)
[2020-03-27] MEDS: INSULIN LISPRO 100 UNIT/ML 3 ML VIAL SUBCUT SCH ×4 (08:37→21:13)
[2020-03-27] MEDS: MEGESTROL ACETATE SUSP 400 MG/10 ML UDCUP PO SCH (10:25)
[2020-03-27] MEDS: CEFTRIAXONE 1 GM/D5W RTU 1 GM/50 ML RTUPB IV SCH (10:28)
--- NOTE | 2020-03-27 10:54 | PDOC PROGRESS REPORT ---
Subjective Date:: 03/27/20 Subjective:: patient denies chest pain/shortness of breath. He is concerned about not having any help for the holidays, which be believes led to this hospitalization Reason For Visit: MARTHA,DEHYDRATION,FTT Physical Exam Vital Signs: Temp Pulse Resp BP Pulse Ox 97.5 F 88 18 105/63 88 L 03/27/20 08:06 03/27/20 08:06 03/27/20 08:06 03/27/20 08:06 03/27/20 08:06 Intake & Output 03/26/20 03/27/20 03/28/20 06:59 06:59 06:59 Intake Total 1670 1690 Output Total 845 950 Balance 825 740 Weight 46.2 kg 46 kg General appearance: PRESENT: no acute distress Head exam: PRESENT: atraumatic Respiratory exam: PRESENT: clear to auscultation khushboo - on 2L Nc O2 Cardiovascular exam: PRESENT: RRR GI/Abdominal exam: PRESENT: soft. ABSENT: diminished bowel sounds, tenderness Results Laboratory Results: 03/27/20 04:14 03/27/20 04:14 03/27/20 03/27/20 04:14 04:14 WBC 2.4 L RBC 2.73 L Hgb 9.8 L Hct 29.1 L MCV 107 H MCH 36.0 H MCHC 33.7 RDW 25.4 H Plt Count 23 L* Sodium 141.9 Potassium 4.1 Chloride 112 H Carbon Dioxide 20 L Anion Gap 10 BUN 84 H Creatinine 2.17 H Est GFR ( Amer) 37 L Glucose 108 Calcium 9.1 Total Bilirubin 1.9 H AST 48 Alkaline Phosphatase 159 H Total Protein 5.6 L Albumin 2.7 L 03/24/20 12:38 Clean Catch Midstream Urine Culture - Final Mixed Urogenital Sarai 03/24/20 03/24/20 03/26/20 14:12 14:12 06:09 Creatine Kinase 59 Troponin I 0.124 NT-Pro-B Natriuret Pep [id number] H [id number] H 03/27/20 04:14 Creatine Kinase Troponin I NT-Pro-B Natriuret Pep [id number] H Impressions: Chest X-Ray 03/24/20 12:23 IMPRESSION: 1. New cardiomegaly. 2. Persistent right basilar infiltrate slightly improved from prior study. Renal Ultrasound 03/26/20 00:00 IMPRESSION: Unchanged bilateral renal cortical cysts and left renal atrophy. No hydronephrosis. Assessment and Plan - Diagnosis (1) Physical deconditioning Is this a current diagnosis for this admission?: Yes (2) NYHA class 4 heart failure with reduced ejection fraction Is this a current diagnosis for this admission?: Yes (3) UTI (urinary tract infection) Qualifiers: Urinary tract infection type: acute cystitis Hematuria presence: without hematuria Qualified Code(s): N30.00 - Acute cystitis without hematuria Is this a current diagnosis for this admission?: Yes (4) Acute kidney injury Is this a current diagnosis for this admission?: Yes (5) Transaminitis Is this a current diagnosis for this admission?: Yes - Plan Summary Summary: 1. UTI/dehydration: Improved with IVF, IVF stopped he is eating and drinking well. UCx negative, UTI ruled out, foster catheter can be removed in am, he is making good urin output 2. MARTHA: hold IVF suspect hepatic congestion, continue foster catheter for I&O monitoring. U/S renal shows renal cortical cysts, his mucosa are moist, oral intake today 3. Physical deconditining: PT eval pending 4. cardiomyopathy: Ef 25% with recent history of GI bleed, cardiology to continue to follow 5. Acute encephalopathy: suspect ischemic vs metabolic, MRI brain cancelled. He is back to his baseline with hydration. CM consult for disposition to SNF at discharge 6. COPD with chronic hypoxia 2L: not in exacerbation 7. Thrombocytopenia: no actively bleeding per RN, outpaint hematology f/u * Home med list pending * - Time Time Spent with patient: 15-24 minutes Anticipated Discharge Disposition: Group Home Facility Anticipated Discharge Timeframe: within 72 hours
[2020-03-27] MEDS: HYDRALAZINE HCL 10 MG TABLET PO SCH ×2 (13:36→21:12)
[2020-03-27] MEDS ORDERED: MIDODRINE HCL 5 MG TABLET PO ONE (14:00)
--- NOTE | 2020-03-27 15:13 | Progress Note ---
Provider Note Provider Note: CARDIOLOGY PROGRESS NOTE by Dr. Alicia Brizuela on 03/26/2020 Subjective: Patient more awake today. States he feels a little better. But still overall complains of generalized fatigue and weakness. He is able to lie down flat. There is no chest pain or discomfort. There is no anginal symptoms. There is no leg edema. There is no PND orthopnea. He states he has no further diarrhea. There is no abdominal pain. He is eating and drinking well as per the nurses.. There is no arrhythmias seen on the monitor. There is no firing of his AICD. PHYSICAL EXAMINATION: The patient appears to be chronically ill and malnourished. Selected Entries 03/27/20 11:29 Temperature 98.1 F Temperature Oral Source Pulse Rate 84 Respiratory 18 Rate Blood Pressure 94/57 L Blood Pressure 69 Mean BP Location Left Arm BP Position Supine O2 Sat by Pulse 93 Oximetry Oxygen Flow 2.00 Rate Oxygen Delivery Nasal Cannula Method HEAD: Is atraumatic normocephalic. EYES: Pupils are equal round regular reactive to light and accommodation. Extraocular movements are normal. There is no conjunctival pallor. There is no scleral icterus. EARS: Tympanic membranes are intact. External auditory canals are clear. NOSE: There is no deviated nasal septum. There is no inflammation of the nasal mucous membrane. MOUTH: Mucous membranes of mouth are just moist, tongue is moist. THROAT: There is no redness of the oropharynx. There is no exudates. 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 There is no catie-care ecchymosis. NECK: Supple. There is no JVD present. Carotids are equal there is no bruit. There is no lymphadenopathy. There is no goiter. There is no accessory muscle respiration use. Trachea central. LUNGS: Shows diminished air entry prolonged expiration . There is no rhonchi or rales or wheezing. There is no chest wall tenderness on palpation. On palpation there is hyperresonance. There is no bibasilar rales of heart failure. HEART: S1-S2 is heard. There is no S3 gallop. There is no S4 gallop there is systolic murmur left sternal border and the apex there is no rub. ABDOMEN: Soft. There is no hepatosplenomegaly. Bowel sounds are normal. There is no hepatosplenomegaly. EXTREMITIES: There is diminished bilateral femoral pulses with bruits. 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 He has bilateral femoral bruits present. Leg pulses are diminished. There is no pedal edema bilaterally. There is no DVT or cellulitis. There is no cyanosis or clubbing. CAR STARTER: The patient is asleep, but when aroused/awaken he is oriented x3 with no focal deficit. The patient's 24-hour total intake is 1690 mL. His 24-hour total output is 950 mL. IMPRESSION/RECOMMENDATION: 1. Severe dehydration, and UTI: Agree with gentle hydration watch for volume overload. Note the patient has done well with IV fluids. He is now taking p.o. liquids. Dehydration is improved. Continue antibiotics. 2. Acute renal failure: Secondary to dehydration and also possibly decreased cardiac output secondary to decrease in optimal preload due to dehydration. 3. Thrombocytopenia: Watch for overt bleeding. 4. History of severe GI bleed and anemia secondary to gastric ulcer. Watch out for recurrence of bleeding. 5. History of gastric ulcer with bleeding. Later would see if the patient can have a repeat endoscopy to see if the ulcer is healed. 6. Cardiomyopathy with severely reduced LV ejection fraction. In view of the patient's renal function status agree with holding the patient's Entresto for now. Restart later after hydration. We will start the patient on midodrine to get his blood pressure up. Will restart the patient's Coreg at 6.25 mg p.o. every 12 hours. We will start the patient on small dose of hydralazine 10 mg p.o. 3 times daily. If the midodrine 5 mg p.o. 3 times daily does not get his blood pressure up will increase it to 10 mg p.o. 3 times daily. We will hold off on the Entresto for now due to his renal function. 7. Coronary artery disease: History of [place]: No anginal symptoms. 8. Severe pulmonary hypertension: Secondary to left heart failure and due to COPD. 9.COPD: No evidence of acute exacerbation. 10. History of hypertension: The patient in the recent past has been on midodrine. The patient's blood pressure stable at present. 11. Hypothyroidism: Continue replacement 12. AICD placement: No firing of his AICD. Medications reviewed. Medical regimen and management plan discussed with attending provider on the case. Medical decision making is of high complexity. 60 minutes spent on this patient more than 50% time spent direct patient care. Will follow.
[2020-03-27] MEDS: MIDODRINE HCL 5 MG TABLET PO SCH (18:14)
[2020-03-27] MEDS: CARVEDILOL 6.25 MG TABLET PO SCH (21:12)
[2020-03-28] MEDS: HYDRALAZINE HCL 10 MG TABLET PO SCH ×3 (05:19→22:52)
[2020-03-28 07:50] LABS: HEMATOCRIT 27.6 % (37.9-51.0); HEMOGLOBIN 9.4 g/dL (13.5-17.0); MEAN CORPUSCULAR HEMOGLOBIN 36.6 pg (27.0-33.4); MEAN CORPUSCULAR HGB CONC 34.2 g/dL (32.0-36.0); MEAN CORPUSCULAR VOLUME 107 fl (80-97); RED BLOOD COUNT 2.57 10^6/uL (4.35-5.55); RED CELL DISTRIBUTION WIDTH 25.3 % (11.5-14.0)
[2020-03-28 07:59] LABS: ANION GAP 6 (5-19); BLOOD UREA NITROGEN 78 mg/dL (7-20); CALCIUM 8.9 mg/dL (8.4-10.2); CARBON DIOXIDE 21 mmol/L (22-30); CHLORIDE 111 mmol/L (98-107); GLUCOSE 101 mg/dL (75-110); POTASSIUM 4.2 mmol/L (3.6-5.0)
[2020-03-28 09:15] LABS: ABSOLUTE LYMPHOCYTES# (MANUAL) 0.2 10^3/uL (0.5-4.7); BASOPHILS % (MANUAL) 0 % (0-2); EOSINOPHILS % (MANUAL) 6 % (0-6); LYMPHOCYTES % (MANUAL) 16 % (13-45); MONOCYTES % (MANUAL) 2 % (3-13); SEGMENTED NEUTROPHILS % (MAN) 76 % (42-78); TOTAL CELLS COUNTED 50
[2020-03-28 09:19] LABS: ANISOCYTOSIS 3+
[2020-03-28 09:20] LABS: BURR CELLS SLIGHT; OVALOCYTES 1+; PLATELET COMMENT DECREASED; POLYCHROMASIA SLIGHT
[2020-03-28] MEDS: INSULIN LISPRO 100 UNIT/ML 3 ML VIAL SUBCUT SCH ×4 (09:22→22:30)
[2020-03-28] MEDS: CARVEDILOL 6.25 MG TABLET PO SCH ×2 (09:26→22:53)
[2020-03-28] MEDS: MEGESTROL ACETATE SUSP 400 MG/10 ML UDCUP PO SCH (09:27)
[2020-03-28] MEDS: MIDODRINE HCL 5 MG TABLET PO SCH ×3 (09:27→17:07)
[2020-03-28 09:33] LABS: PLATELET COUNT 26 10^3/uL (150-450); WHITE BLOOD COUNT 1.3 10^3/uL (4.0-10.5)
--- NOTE | 2020-03-28 13:08 | PDOC PROGRESS REPORT ---
Subjective Date:: 03/28/20 Subjective:: patient reports no chest pain, cough Reason For Visit: MARTHA,DEHYDRATION,FTT Physical Exam Vital Signs: Temp Pulse Resp BP Pulse Ox 97.4 F 72 18 99/62 L 95 03/28/20 10:00 03/28/20 09:06 03/28/20 09:06 03/28/20 09:06 03/28/20 09:06 Intake & Output 03/27/20 03/28/20 03/29/20 06:59 06:59 06:59 Intake Total 1690 750 Output Total 950 700 Balance 740 50 Weight 46 kg 55 kg General appearance: PRESENT: no acute distress Respiratory exam: PRESENT: clear to auscultation khushboo, unlabored, other - on 2L Nc Cardiovascular exam: PRESENT: RRR Pulses: PRESENT: +1 pedal pulses bilateral Results Laboratory Results: 03/28/20 07:19 03/28/20 07:19 03/28/20 03/28/20 07:19 07:19 WBC 1.3 L* D RBC 2.57 L Hgb 9.4 L Hct 27.6 L MCV 107 H MCH 36.6 H MCHC 34.2 RDW 25.3 H Plt Count 26 L* Seg Neutrophils % Not Reportable Sodium 137.9 Potassium 4.2 Chloride 111 H Carbon Dioxide 21 L Anion Gap 6 BUN 78 H Creatinine 1.89 H Est GFR ( Amer) 43 L Glucose 101 Calcium 8.9 03/24/20 03/24/20 03/26/20 14:12 14:12 06:09 Creatine Kinase 59 Troponin I 0.124 NT-Pro-B Natriuret Pep [id number] H [id number] H 03/27/20 04:14 Creatine Kinase Troponin I NT-Pro-B Natriuret Pep [id number] H Impressions: Chest X-Ray 03/24/20 12:23 IMPRESSION: 1. New cardiomegaly. 2. Persistent right basilar infiltrate slightly improved from prior study. Renal Ultrasound 03/26/20 00:00 IMPRESSION: Unchanged bilateral renal cortical cysts and left renal atrophy. No hydronephrosis. Assessment and Plan - Diagnosis (1) Physical deconditioning Is this a current diagnosis for this admission?: Yes (2) NYHA class 4 heart failure with reduced ejection fraction Is this a current diagnosis for this admission?: Yes (3) UTI (urinary tract infection) Qualifiers: Urinary tract infection type: acute cystitis Hematuria presence: without hematuria Qualified Code(s): N30.00 - Acute cystitis without hematuria Is this a current diagnosis for this admission?: Yes (4) Acute kidney injury Is this a current diagnosis for this admission?: Yes (5) Transaminitis Is this a current diagnosis for this admission?: Yes - Plan Summary Summary: 1. UTI/dehydration: Improved with IVF, IVF stopped he is eating and drinking well. UCx negative, UTI ruled out, ofster catheter can be removed today, he is making good urine output 2. MARTHA: hold IVF suspect hepatic congestion, continue foster catheter for I&O monitoring. U/S renal shows renal cortical cysts, his mucosa are moist, oral in take today 3. Physical deconditining: PT eval pending 4. cardiomyopathy: Ef 25% with recent history of GI bleed, cardiology to continue to follow 5. Acute encephalopathy: suspect ischemic vs metabolic, MRI brain cancelled. He is back to his baseline with hydration. CM consult for disposition to SNF at discharge 6. COPD with chronic hypoxia 2L: not in exacerbation 7. Thrombocytopenia/neutropenia: no actively bleeding per RN, outpatient hematology f/u * Home med list has no changes * - Time Time Spent with patient: 15-24 minutes Anticipated Discharge Disposition: Assisted Facility Anticipated Discharge Timeframe: within 72 hours
--- NOTE | 2020-03-28 20:16 | Progress Note ---
Provider Note Provider Note: CARDIOLOGY PROGRESS NOTE by Dr. Alicia Brizuela on 03/28/2020. OBJECTIVE: The patient still is very sleepy but awakens and is appropriate and when awakened. He denies chest pain or discomfort there is no shortness of breath. His blood pressure is marginal. Hence some of his anticardiomyopathy medications have been held. We will increase the patient's midodrine. There is no firing of his AICD. There is no arrhythmias seen on the monitor. PHYSICAL EXAMINATION: The patient is chronically ill and malnourished. But in no acute distress. He is lying down flat in bed. Selected Entries 03/28/20 12:45 Temperature 97.4 F Temperature Oral Source Pulse Rate 77 Respiratory 16 Rate Blood Pressure 92/57 L Blood Pressure 68 Mean BP Location Left Arm BP Position Supine O2 Sat by Pulse 91 L Oximetry Oxygen Delivery Room Air Method PHYSICAL EXAMINATION: The patient appears to be chronically ill and malnourished. HEAD: Is atraumatic normocephalic. EYES: Pupils are equal round regular reactive to light and accommodation. Extraocular movements are normal. There is no conjunctival pallor. There is no scleral icterus. EARS: Tympanic membranes are intact. External auditory canals are clear. NOSE: There is no deviated nasal septum. There is no inflammation of the nasal mucous membrane. MOUTH: Mucous membranes of mouth are just moist, tongue is moist. THROAT: There is no redness of the oropharynx. There is no exudates. SKIN: There is a cancer ous lesion in the back of the patient's left ear. There is no catie-care ecchymosis. NECK: Supple. There is no JVD present. Carotids are equal there is no bruit. There is no lymphadenopathy. There is no goiter. There is no accessory muscle respiration use. Trachea central. LUNGS: Shows diminished air entry prolonged expiration . There is no rhonchi or rales or wheezing. There is no chest wall tenderness on palpation. On palpation there is hyperresonance. There is no bibasilar rales of heart failure. HEART: S1-S2 is heard. There is no S3 gallop. There is no S4 gallop there is systolic murmur left sternal border and the apex there is no rub. ABDOMEN: Soft. There is no hepatosplenomegaly. Bowel sounds are normal. There is no hepatosplenomegaly. EXTREMITIES: There is diminished bilateral femoral pulses with bruits. 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 He has bilateral femoral bruits present. Leg pulses are diminished. There is no pedal edema bilaterally. There is no DVT or cellulitis. There is no cyanosis or clubbing. 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 The patient's 24-hour total intake is 750 mL. His 24-hour total output is 700 mL. Labs- All tests 24 hr 03/27/20 03/28/20 03/28/20 21:06 07:19 07:19 WBC 1.3 L* D RBC 2.57 L Hgb 9.4 L Hct 27.6 L MCV 107 H MCH 36.6 H MCHC 34.2 RDW 25.3 H Plt Count 26 L* Lymph % (Auto) Not Reportable [place] % (Auto) Not Reportable Eos % (Auto) Not Reportable Baso % (Auto) Not Reportable Absolute Neuts (auto) Not Reportable Absolute Lymphs (auto) Not Reportable Absolute Monos (auto) Not Reportable Absolute Eos (auto) Not Reportable Absolute Basos (auto) Not Reportable Total Counted 50 Seg Neutrophils % Not Reportable Seg Neuts % (Manual) 76 Lymphocytes % (Manual) 16 Monocytes % (Manual) 2 L Eosinophils % (Manual) 6 Basophils % (Manual) 0 Abs Neuts (Manual) 1.0 L Abs Lymphs (Manual) 0.2 L Abs Monocytes (Manual) 0.0 L Absolute Eos (Manual) 0.1 Abs Basophils (Manual) 0.0 Platelet Comment DECREASED Polychromasia SLIGHT Anisocytosis 3+ Ovalocytes 1+ Mickey Cells SLIGHT Sodium 137.9 Potassium 4.2 Chloride 111 H Carbon Dioxide 21 L Anion Gap 6 BUN 78 H Creatinine 1.89 H Est GFR ( Amer) 43 L Est GFR (MDRD) Non-Af 36 L Glucose 101 POC Glucose 109 Calcium 8.9 03/28/20 03/28/20 03/28/20 09:04 12:42 16:59 WBC RBC Hgb Hct MCV MCH MCHC RDW Plt Count Lymph % (Auto) [place] % (Auto) Eos % (Auto) Baso % (Auto) Absolute Neuts (auto) Absolute Lymphs (auto) Absolute Monos (auto) Absolute Eos (auto) Absolute Basos (auto) Total Counted Seg Neutrophils % Seg Neuts % (Manual) Lymphocytes % (Manual) Monocytes % (Manual) Eosinophils % (Manual) Basophils % (Manual) Abs Neuts (Manual) Abs Lymphs (Manual) Abs Monocytes (Manual) Absolute Eos (Manual) Abs Basophils (Manual) Platelet Comment Polychromasia Anisocytosis Ovalocytes [place] Cells Sodium Potassium Chloride Carbon Dioxide Anion Gap BUN Creatinine Est GFR ( Amer) Est GFR (MDRD) Non-Af Glucose POC Glucose 114 H 116 H 105 Calcium Chest X-Ray 03/24/20 12:23 IMPRESSION: 1. New cardiomegaly. 2. Persistent right basilar infiltrate slightly improved from prior study. Renal Ultrasound 03/26/20 00:00 IMPRESSION: Unchanged bilateral renal cortical cysts and left renal atrophy. No hydronephrosis. IMPRESSION/RECOMMENDATION: 1. Severe dehydration, and UTI: Agree with gentle hydration watch for volume overload. Note the patient has done well with IV fluids. He is now taking p.o. liquids. Dehydration is improved. Continue antibiotics. 2. Acute renal failure: Secondary to dehydration and also possibly decreased cardiac output secondary to decrease in optimal preload due to dehydration. 3. Thrombocytopenia: Watch for overt bleeding. 4. History of severe GI bleed and anemia secondary to gastric ulcer. Watch out for recurrence of bleeding. 5. History of gastric ulcer with bleeding. Later would see if the patient can have a repeat endoscopy to see if the ulcer is healed. 6. Cardiomyopathy with severely reduced LV ejection fraction. In view of the patient's renal function status agree with holding the patient's Entresto for now. Restart later after hydration. We will start the patient on midodrine to get his blood pressure up. Will restart the patient's Coreg at 6.25 mg p.o. every 12 hours. We will start the patient on small dose of hydralazine 10 mg p.o. 3 times daily. I will increase midodrine to 10 mg p.o. 3 times daily. We will hold off on the Entresto for now due to his renal function. 7. Coronary artery disease: History of [place]: No anginal symptoms. 8. Severe pulmonary hypertension: Secondary to left heart failure and due to COPD. 9.COPD: No evidence of acute exacerbation. 10. History of hypertension: The patient in the recent past has been on midodrine. The patient's blood pressure stable at present. 11. Hypothyroidism: Continue replacement 12. AICD placement: No firing of his AICD. Medications reviewed. Medical regimen and management plan discussed with attending provider on the case. Medical decision making is of high complexity. 60 minutes spent on this patient more than 50% time spent direct patient care. Will follow.
[2020-03-29 04:30] LABS: HEMATOCRIT 27.8 % (37.9-51.0); HEMOGLOBIN 9.8 g/dL (13.5-17.0); MEAN CORPUSCULAR HEMOGLOBIN 37.8 pg (27.0-33.4); MEAN CORPUSCULAR HGB CONC 35.2 g/dL (32.0-36.0); MEAN CORPUSCULAR VOLUME 107 fl (80-97); RED BLOOD COUNT 2.59 10^6/uL (4.35-5.55); RED CELL DISTRIBUTION WIDTH 25.4 % (11.5-14.0)
[2020-03-29 04:40] LABS: ANION GAP 7 (5-19); BLOOD UREA NITROGEN 74 mg/dL (7-20); CALCIUM 9.1 mg/dL (8.4-10.2); CARBON DIOXIDE 21 mmol/L (22-30); CHLORIDE 110 mmol/L (98-107); GLUCOSE 99 mg/dL (75-110); POTASSIUM 4.7 mmol/L (3.6-5.0)
[2020-03-29 04:57] LABS: PLATELET COUNT 36 10^3/uL (150-450)
[2020-03-29 05:04] LABS: ABSOLUTE LYMPHOCYTES# (MANUAL) 0.3 10^3/uL (0.5-4.7); ANISOCYTOSIS 3+; BAND NEUTROPHILS % (MANUAL) 2 % (3-5); BASOPHILS % (MANUAL) 0 % (0-2); EOSINOPHILS % (MANUAL) 4 % (0-6); HYPOCHROMASIA 1+; LYMPHOCYTES % (MANUAL) 22 % (13-45); MONOCYTES % (MANUAL) 2 % (3-13); POLYCHROMASIA 1+; SEGMENTED NEUTROPHILS % (MAN) 70 % (42-78); TOTAL CELLS COUNTED 50
[2020-03-29 05:05] LABS: BURR CELLS 1+; PLATELET COMMENT DECREASED; POIKILOCYTOSIS 1+; WHITE BLOOD COUNT 1.3 10^3/uL (4.0-10.5)
[2020-03-29] MEDS: HYDRALAZINE HCL 10 MG TABLET PO SCH ×2 (05:21→14:10)
[2020-03-29] MEDS: INSULIN LISPRO 100 UNIT/ML 3 ML VIAL SUBCUT SCH ×4 (08:27→21:46)
[2020-03-29] MEDS: CARVEDILOL 6.25 MG TABLET PO SCH ×2 (09:22→21:46)
[2020-03-29] MEDS: MIDODRINE HCL 5 MG TABLET PO SCH ×3 (09:22→17:38)
[2020-03-29] MEDS: MEGESTROL ACETATE SUSP 400 MG/10 ML UDCUP PO SCH (09:24)
[2020-03-29] MEDS ORDERED: NORMAL SALINE 1000 ML 1,000 ML IV PRN (10:31)
[2020-03-29 16:14] LABS: PATH REVIEW PATHOLOGIST REVIEWED
--- NOTE | 2020-03-29 18:09 | PDOC CONSULTATION ---
Consultation Consult Date: 03/29/20 Provider Consulted: TAMIR POWELL Consult reason:: Hematology/Oncology consultation was requested for patient with pancytopenia. History of Present Illness Admission Date/PCP: 03/24/20 16:48 [facility] History of Present Illness: LORIE OLIVIA is a 69 year old male who presented to the hospital with confusion after having been found by HHN covered in feces. Patient tells me that he had diarrhea and had not been feeling good. However, he cannot tell me when this started or how long it has been going on. Today he states that he is feeling "about the same" as he did on admission several days ago. He is Tired. He does not know which medications he is on and states that "they changed everything." He is a very poor historian and is not fully oriented to time or situation. According to medical records, he was severely dehydrated on admission, but without evidence of infection or sepsis. I do not see evidence of any ABX during this admission, but his UA showed marked WBCs, Urine culture showed mixed jessica. His baseline WBC count is 4-6 and on admission it was 4.6 but today is only 1.3. Similarly, PLT usually 90-130. On admission they were 2 9 and today only 36. His HGB is 8-11 at baseline and is stable at 9.8 today. Past Medical History Cardiac Medical History: Reports: Congestive Heart Failure, Myocardial Infarction, Hyperlipidema, Hypertension Pulmonary Medical History: Reports: Chronic Obstructive Pulmonary Disease (COPD) Neurological Medical History: Denies: Seizures GI Medical History: Reports: Gastroesophageal Reflux Disease Psychiatric Medical History: Denies: Depression Past Surgical History Past Surgical History: Reports: Cardiac Catheterization - CABG, Coronary Artery Bypass Graft, Herniorrhaphy - bilateral inguinal hernia repair, Orthopedic Surgery, Pacemaker, Vascular Surgery - fem-pop Social History Lives with: Alone Smoking Status: Current Some Day Smoker Frequency of Alcohol Use: None Hx Recreational Drug Use: No Drugs: None Hx Prescription Drug Abuse: No Past Social History Note: 2 children live in [place]. 2 GKs. Family History Family History: Reviewed & Not Pertinent Family History: unable to tell me much family history. Denies anything running in family and states his siblings have "same thing I have" Parental Family History Reviewed: Yes Children Family History Reviewed: No Sibling(s) Family History Reviewed.: Yes Medication/Allergy Home Medications: No Home Medications 03/26/20 Allergies/Adverse Reactions: No Known Allergies Allergy (Verified 11/11/19 20:49) Review of Systems Constitutional: ABSENT: fever(s), headache(s) Eyes: ABSENT: visual disturbances Ears: ABSENT: hearing changes Nose, Mouth, and Throat: ABSENT: sore throat Cardiovascular: ABSENT: chest pain Respiratory: ABSENT: dyspnea Gastrointestinal: PRESENT: diarrhea. ABSENT: vomiting Genitourinary: PRESENT: other - frequency. ABSENT: dysuria Musculoskeletal: ABSENT: back pain Integumentary: ABSENT: rash Neurological: ABSENT: confusion Hematologic/Lymphatic: ABSENT: easy bleeding Physical Exam Vital Signs: Temp Pulse Resp BP Pulse Ox 98.3 F 77 18 98/62 L 92 03/29/20 16:15 03/29/20 16:15 03/29/20 16:15 03/29/20 16:15 03/29/20 16:15 Intake & Output 03/28/20 03/29/20 03/30/20 06:59 06:59 06:59 Intake Total 750 1784 480 Output Total 700 500 Balance 50 1284 480 Weight 55 kg 55.1 kg General appearance: PRESENT: no acute distress, well-developed, well-nourished Head exam: PRESENT: normocephalic Eye exam: PRESENT: EOMI Mouth exam: PRESENT: tongue midline Neck exam: ABSENT: lymphadenopathy, tenderness Respiratory exam: PRESENT: clear to auscultation khushboo, unlabored Cardiovascular exam: PRESENT: other - decreased heart sounds, but regular rhythm. GI/Abdominal exam: PRESENT: soft. ABSENT: tenderness Gentrourinary exam: PRESENT: indwelling catheter Extremities exam: PRESENT: other - SCDs in place. ABSENT: pedal edema Musculoskeletal exam: PRESENT: normal inspection Neurological exam: PRESENT: awake, oriented to person, oriented to place. ABSENT: oriented to time, oriented to situation Psychiatric exam: PRESENT: flat affect Skin exam: PRESENT: normal color Results Laboratory Results: 03/29/20 03:55 03/29/20 03:59 03/29/20 03/29/20 03:55 03:59 WBC 1.3 L* RBC 2.59 L Hgb 9.8 L Hct 27.8 L MCV 107 H MCH 37.8 H MCHC 35.2 RDW 25.4 H Plt Count 36 L Seg Neutrophils % Not Reportable Sodium 138.2 Potassium 4.7 Chloride 110 H Carbon Dioxide 21 L Anion Gap 7 BUN 74 H Creatinine 1.79 H Est GFR ( Amer) 46 L Glucose 99 Calcium 9.1 03/24/20 15:40 Blood Blood Culture - Final NO GROWTH IN 5 DAYS 03/24/20 03/24/20 03/26/20 14:12 14:12 06:09 Creatine Kinase 59 Troponin I 0.124 NT-Pro-B Natriuret Pep [id number] H [id number] H 03/27/20 04:14 Creatine Kinase Troponin I NT-Pro-B Natriuret Pep [id number] H Impressions: Chest X-Ray 03/24/20 12:23 IMPRESSION: 1. New cardiomegaly. 2. Persistent right basilar infiltrate slightly improved from prior study. Renal Ultrasound 03/26/20 00:00 IMPRESSION: Unchanged bilateral renal cortical cysts and left renal atrophy. No hydronephrosis. Assessment & Plan - Diagnosis (1) Pancytopenia Is this a current diagnosis for this admission?: Yes Plan: Difficult to say the cause. B12 deficiency usually causes more pronounced anemia but he remains at baseline. WBC and PLT may be secondary to infection, renal disease, or medication. I do not see that he has been on any ABX, but if so, this may explain the blood counts. I would prefer to wait a few more days to see if this corrects with further improvement in his baseline status. If not, then consider bone marrow biopsy. I am happy to follow him as outpatient if he is stable otherwise. I am concerned about his ability to care for himself living alone with his current confusion. Consider rehab/SNF placement. No current evidence of bleeding. No evidence of TTP. Will watch for bleeding. No acute infection or fever. I will continue to follow with you. Please feel free to call with any questions or concerns.
--- NOTE | 2020-03-29 18:12 | CDI QUERY ---
CDI Query CDI Review: Dear Provider, Please clarify and document type of "encephalopathy" in the progress notes and D/C summary without the "vs." According to CMS GUIDELINES, this negates both and we can not capture this for severity of illness. possible ACUTE METOBOLIC ENCEPHALOPATHY or possible ACUTE ISCHEMIC ENCEPHALOPATHY? OTHER? Thanks, Ariadne Osorio, CDI [phone]
--- NOTE | 2020-03-29 21:15 | PDOC PROGRESS REPORT ---
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 Patient was seen on morning rounds. He is found resting in bed, comfortably, on room air. Patient is technically oriented x4, however, unable to provide me in- depth/relevant information regarding his chronic and recent medical history. He does admit to continued fatigue and generalized weakness. After freezing the question differently a few different ways, the patient does finally state that he believes he would be safer to discharge to SNF for rehab and additional care as he lives at home alone. Otherwise, he denies all complaints; specifically no fever, chills, chest pain, palpitations, dyspnea, cough, abdominal pain, nausea and vomiting. He does report a poor appetite. He has no other questions or concerns at this time. No concerns per nursing. Reason For Visit: MARTHA,DEHYDRATION,FTT Physical Exam Vital Signs: Temp Pulse Resp BP Pulse Ox 98.3 F 77 18 98/62 L 92 03/29/20 16:15 03/29/20 16:15 03/29/20 16:15 03/29/20 16:15 03/29/20 16:15 Intake & Output 03/28/20 03/29/20 03/30/20 06:59 06:59 06:59 Intake Total 750 1784 720 Output Total 700 500 Balance 50 1284 720 Weight 55 kg 55.1 kg General appearance: PRESENT: no acute distress, cooperative, thin, well- developed, well-nourished, other - chronically ill appearing Head exam: PRESENT: atraumatic, normocephalic Eye exam: PRESENT: conjunctiva pink, EOMI, PERRLA. ABSENT: scleral icterus Mouth exam: PRESENT: dry mucosa, tongue midline Respiratory exam: PRESENT: clear to auscultation khushboo, symmetrical, unlabored, other - room air. ABSENT: rales, rhonchi, wheezes Cardiovascular exam: PRESENT: RRR. ABSENT: diastolic murmur, rubs, systolic murmur Pulses: PRESENT: normal dorsalis pedis pul Vascular exam: PRESENT: normal capillary refill Extremities exam: PRESENT: full ROM. ABSENT: calf tenderness, clubbing, pedal edema Neurological exam: PRESENT: alert, awake, oriented to person, oriented to place, oriented to time, oriented to situation, CN II-XII grossly intact, other - technically orientated; however, w/ poor insight and ability to answer more complicated questions.. ABSENT: motor sensory deficit Psychiatric exam: PRESENT: appropriate affect, normal mood. ABSENT: homicidal ideation, suicidal ideation Skin exam: PRESENT: dry, intact, warm. ABSENT: cyanosis, rash Results Laboratory Results: 03/29/20 03:55 03/29/20 03:59 03/29/20 03/29/20 03:55 03:59 WBC 1.3 L* RBC 2.59 L Hgb 9.8 L Hct 27.8 L MCV 107 H MCH 37.8 H MCHC 35.2 RDW 25.4 H Plt Count 36 L Seg Neutrophils % Not Reportable Sodium 138.2 Potassium 4.7 Chloride 110 H Carbon Dioxide 21 L Anion Gap 7 BUN 74 H Creatinine 1.79 H Est GFR ( Amer) 46 L Glucose 99 Calcium 9.1 03/24/20 19:23 Blood Blood Culture - Final NO GROWTH IN 5 DAYS 03/24/20 15:40 Blood Blood Culture - Final NO GROWTH IN 5 DAYS 03/24/20 03/24/20 03/26/20 14:12 14:12 06:09 Creatine Kinase 59 Troponin I 0.124 NT-Pro-B Natriuret Pep [id number] H [id number] H 03/27/20 04:14 Creatine Kinase Troponin I NT-Pro-B Natriuret Pep [id number] H Impressions: Chest X-Ray 03/24/20 12:23 IMPRESSION: 1. New cardiomegaly. 2. Persistent right basilar infiltrate slightly improved from prior study. Renal Ultrasound 03/26/20 00:00 IMPRESSION: Unchanged bilateral renal cortical cysts and left renal atrophy. No hydronephrosis. Assessment and Plan - Diagnosis (1) NYHA class 4 heart failure with reduced ejection fraction Is this a current diagnosis for this admission?: Yes Plan: Dr. Castaneda is consulted. Medications per his expertise. Patient currently on midodrine, carvedilol, Entresto. He is mildly fluid volume depleted; 1 L IVF today. Encourage p.o. fluids. Cardiac diet. Daily weights, strict I&O's. (2) Acute kidney injury Is this a current diagnosis for this admission?: Yes Plan: Secondary to dehydration. Acute on chronic kidney injury has now resolved. Creatinine and BUN at baseline. Continue to avoid nephrotoxic medications. Renally dose where appropriate. Monitor with periodic chemistries. (3) Dehydration Is this a current diagnosis for this admission?: Yes Plan: Improved. On exam, patient with dry mucous membranes, dry skin, tenting/poor skin turgor. His p.o. intake has improved. 1 L normal saline today. Encourage p.o. fluids. Follow-up chemistries. Daily weights, strict I&O's. (4) Pancytopenia Is this a current diagnosis for this admission?: Yes Plan: As per Dr. Estrada's notes, possibly related to Cardiorenal syndrome with cardiac cirrhosis. Hemoglobin overall stable; 9.8 today. WBCs have trended down slightly, platelet count wavering though it essentially stable throughout this admission. Decreased from prior admission last month. No evidence of active bleeding at this time. We will check anemia panel and B12 level. Hematology consulted; appreciate Dr. Garza's evaluation and recommendations. (5) Physical deconditioning Is this a current diagnosis for this admission?: Yes Plan: PT/OT consulted. Patient interested in SNF placement. Discharge planning consulted. (6) Tobacco dependence Is this a current diagnosis for this admission?: Yes Plan: Smoking cessation encouraged. Nicotine replacement therapies provided. (7) UTI (urinary tract infection) Qualifiers: Urinary tract infection type: acute cystitis Hematuria presence: without hematuria Qualified Code(s): N30.00 - Acute cystitis without hematuria Is this a current diagnosis for this admission?: Yes Plan: Ruled out. Urinalysis positive for blood and leuk esterase. Urine culture revealed normal jessica. Received ceftriaxone x2 doses. - Time Time Spent with patient: 35 or more minutes Medications reviewed and adjusted accordingly: Yes Anticipated Discharge Disposition: Residential Facility Anticipated Discharge Timeframe: within 72 hours
[2020-03-29] MEDS: SACUBITRIL/VALSARTAN 24 MG/26 MG TABLET PO SCH (21:45)
--- NOTE | 2020-03-29 22:56 | Progress Note ---
Provider Note Provider Note: CARDIOLOGY PROGRESS NOTE by Dr. Alicia Brizuela on 03/29/2020. SUBJECTIVE: The patient still is very sleepy but awakens and is appropriate and when awakened. He denies chest pain or discomfort there is no shortness of breath. His blood pressure is marginal. Hence some of his anticardiomyopathy medications have been held. We will increase the patient's midodrine. There is no firing of his AICD. There is no arrhythmias seen on the monitor. PHYSICAL EXAMINATION: The patient is chronically ill and malnourished. But in no acute distress. He is lying down flat in bed. PHYSICAL EXAMINATION: The patient appears to be chronically ill and malnourished. Selected Entries 03/29/20 16:15 Temperature 98.3 F Temperature Oral Source Pulse Rate 77 Respiratory 18 Rate Blood Pressure 98/62 L Blood Pressure 74 Mean BP Position Supine O2 Sat by Pulse 92 Oximetry Oxygen Delivery Room Air Method HEAD: Is atraumatic normocephalic. EYES: Pupils are equal round regular reactive to light and accommodation. Extraocular movements are normal. There is no conjunctival pallor. There is no scleral icterus. EARS: Tympanic membranes are intact. External auditory canals are clear. NOSE: There is no deviated nasal septum. There is no inflammation of the nasal mucous membrane. MOUTH: Mucous membranes of mouth are just moist, tongue is moist. THROAT: There is no redness of the oropharynx. There is no exudates. SKIN: There is a cance michael lesion in the back of the patient's left ear. There is no catie-care ecchymosis. NECK: Supple. There is no JVD present. Carotids are equal there is no bruit. There is no lymphadenopathy. There is no goiter. There is no accessory muscle respiration use. Trachea central. LUNGS: Shows diminished air entry prolonged expiration . There is no rhonchi or rales or wheezing. There is no chest wall tenderness on palpation. On palpation there is hyperresonance. There is no bibasilar rales of heart failure. HEART: S1-S2 is heard. There is no S3 gallop. There is no S4 gallop there is systolic murmur left sternal border and the apex there is no rub. ABDOMEN: Soft. There is no hepatosplenomegaly. Bowel sounds are normal. There is no hepatosplenomegaly. EXTREMITIES: There is diminished bilateral femoral pulses with bruits. 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 He has bilateral femoral bruits present. Leg pulses are diminished. There is no pedal edema bilaterally. There is no DVT or cellulitis. There is no cyanosis or clubbing. BRONC BREAKER: The patient is asleep, but when aroused/awaken he is oriented x3 with no focal deficit. The patient's 24-hour total intake is 1784 mL. His 24-hour total output is 500 mL. Labs- All tests 24 hr 03/28/20 03/29/20 03/29/20 07:19 03:55 03:59 WBC 1.3 L* RBC 2.59 L Hgb 9.8 L Hct 27.8 L MCV 107 H MCH 37.8 H MCHC 35.2 RDW 25.4 H Plt Count 36 L Lymph % (Auto) Not Reportable Dupage % (Auto) Not Reportable Eos % (Auto) Not Reportable Baso % (Auto) Not Reportable Absolute Neuts (auto) Not Reportable Absolute Lymphs (auto) Not Reportable Absolute Monos (auto) Not Reportable Absolute Eos (auto) Not Reportable Absolute Basos (auto) Not Reportable Total Counted 50 Seg Neutrophils % Not Reportable Seg Neuts % (Manual) 70 Band Neutrophils % 2 L Lymphocytes % (Manual) 22 Monocytes % (Manual) 2 L Eosinophils % (Manual) 4 Basophils % (Manual) 0 Abs Neuts (Manual) 0.9 L Abs Lymphs (Manual) 0.3 L Abs Monocytes (Manual) 0.0 L Absolute Eos (Manual) 0.1 Abs Basophils (Manual) 0.0 Platelet Comment DECREASED Polychromasia 1+ Hypochromasia 1+ Poikilocytosis 1+ Anisocytosis 3+ Macrocytosis 1+ Mickey Cells 1+ Sodium 138.2 Potassium 4.7 Chloride 110 H Carbon Dioxide 21 L Anion Gap 7 BUN 74 H Creatinine 1.79 H Est GFR ( Amer) 46 L Est GFR (MDRD) Non-Af 38 L Glucose 99 POC Glucose Calcium 9.1 Slides for Path Review PATHOLOGIST REVIEWED 03/29/20 03/29/20 03/29/20 08:14 10:59 16:13 WBC RBC Hgb Hct MCV MCH MCHC RDW Plt Count Lymph % (Auto) Dup[place] % (Auto) Eos % (Auto) Baso % (Auto) Absolute Neuts (auto) Absolute Lymphs (auto) Absolute Monos (auto) Absolute Eos (auto) Absolute Basos (auto) Total Counted Seg Neutrophils % Seg Neuts % (Manual) Band Neutrophils % Lymphocytes % (Manual) Monocytes % (Manual) Eosinophils % (Manual) Basophils % (Manual) Abs Neuts (Manual) Abs Lymphs (Manual) Abs Monocytes (Manual) Absolute Eos (Manual) Abs Basophils (Manual) Platelet Comment Polychromasia Hypochromasia Poikilocytosis Anisocytosis Macrocytosis Mickey Cells Sodium Potassium Chloride Carbon Dioxide Anion Gap BUN Creatinine Est GFR ( Amer) Est GFR (MDRD) Non-Af Glucose POC Glucose 109 113 H 147 H Calcium Slides for Path Review 03/29/20 20:53 WBC RBC Hgb Hct MCV MCH MCHC RDW Plt Count Lymph % (Auto) [place] % (Auto) Eos % (Auto) Baso % (Auto) Absolute Neuts (auto) Absolute Lymphs (auto) Absolute Monos (auto) Absolute Eos (auto) Absolute Basos (auto) Total Counted Seg Neutrophils % Seg Neuts % (Manual) Band Neutrophils % Lymphocytes % (Manual) Monocytes % (Manual) Eosinophils % (Manual) Basophils % (Manual) Abs Neuts (Manual) Abs Lymphs (Manual) Abs Monocytes (Manual) Absolute Eos (Manual) Abs Basophils (Manual) Platelet Comment Polychromasia Hypochromasia Poikilocytosis Anisocytosis Macrocytosis [place] Cells Sodium Potassium Chloride Carbon Dioxide Anion Gap BUN Creatinine Est GFR ( Amer) Est GFR (MDRD) Non-Af Glucose POC Glucose 112 H Calcium Slides for Path Review Chest X-Ray 03/24/20 12:23 IMPRESSION: 1. New cardiomegaly. 2. Persistent right basilar infiltrate slightly improved from prior study. Renal Ultrasound 03/26/20 00:00 IMPRESSION: Unchanged bilateral renal cortical cysts and left renal atrophy. No hydronephrosis. IMPRESSION/RECOMMENDATION: 1. Severe dehydration, and UTI: Agree with gentle hydration watch for volume overload. Note the patient has done well with IV fluids. He is now taking p.o. liquids. Dehydration is improved. Continue antibiotics. 2. Acute renal failure: Secondary to dehydration and also possibly decreased cardiac output secondary to decrease in optimal preload due to dehydration. 3. Thrombocytopenia: Watch for overt bleeding. 4. History of severe GI bleed and anemia secondary to gastric ulcer. Watch out for recurrence of bleeding. 5. History of gastric ulcer with bleeding. Later would see if the patient can have a repeat endoscopy to see if the ulcer is healed. 6. Cardiomyopathy with severely reduced LV ejection fraction. In view of the patient's renal function status agree with holding the patient's Entresto for now. Restart later after hydration. We will start the patient on midodrine to get his blood pressure up. Will restart the patient's Coreg at 6.25 mg p.o. every 12 hours. We will start the patient on small dose of hydralazine 10 mg p.o. 3 times daily. I will increase midodrine to 10 mg p.o. 3 times daily. We will hold off on the Entresto for now due to his renal function. 7. Coronary artery disease: History of [place]: No anginal symptoms. 8. Severe pulmonary hypertension: Secondary to left heart failure and due to COPD. 9.COPD: No evidence of acute exacerbation. 10. History of hypertension: The patient in the recent past has been on midodrine. The patient's blood pressure stable at present. 11. Hypothyroidism: Continue replacement 12. AICD placement: No firing of his AICD. Medications reviewed. Medical regimen and management plan discussed with attending provider on the case. Medical decision making is of high complexity. 40 minutes spent on this patient more than 50% time spent direct patient care. Will follow.
[2020-03-30 06:41] LABS: ABSOLUTE RETICS # 0.054 10^6/uL (0.028-0.122); HEMATOCRIT 30.7 % (37.9-51.0); HEMOGLOBIN 10.6 g/dL (13.5-17.0); MEAN CORPUSCULAR HEMOGLOBIN 36.9 pg (27.0-33.4); MEAN CORPUSCULAR HGB CONC 34.6 g/dL (32.0-36.0); MEAN CORPUSCULAR VOLUME 107 fl (80-97); RED BLOOD COUNT 2.88 10^6/uL (4.35-5.55); RED CELL DISTRIBUTION WIDTH 25.1 % (11.5-14.0); RETICULOCYTE COUNT (AUTO) 1.87 % (0.66-2.85)
[2020-03-30 06:47] LABS: ANION GAP 9 (5-19); BLOOD UREA NITROGEN 72 mg/dL (7-20); CARBON DIOXIDE 20 mmol/L (22-30); CHLORIDE 110 mmol/L (98-107); GLUCOSE 100 mg/dL (75-110); IRON(TIBC) 53.2 ug/dL (49-181); POTASSIUM 5.1 mmol/L (3.6-5.0)
[2020-03-30 07:12] LABS: PLATELET COUNT 45 10^3/uL (150-450)
[2020-03-30 07:19] LABS: WHITE BLOOD COUNT 1.2 10^3/uL (4.0-10.5)
[2020-03-30 07:56] LABS: FOLATE > 20.00 ng/mL (>2.76)
--- NOTE | 2020-03-30 08:12 | PDOC PROGRESS REPORT ---
Subjective Date:: 03/30/20 Subjective:: Patient states that he can't tell yet how he is feeling. Difficult to get any s leep in the hospital. He would like some jello or something to "munch on." He has no new complaints, and remains pleasantly confused. Nurses are concerned about WBC count, but no fever. He is eating well. Reason For Visit: MARTHA,DEHYDRATION,FTT Physical Exam Vital Signs: Temp Pulse Resp BP Pulse Ox 97.4 F 74 18 96/56 L 91 L 03/30/20 00:25 03/30/20 07:00 03/30/20 00:25 03/30/20 00:25 03/30/20 00:25 Intake & Output 03/29/20 03/30/20 03/31/20 06:59 06:59 06:59 Intake Total 1784 1720 Output Total 500 Balance 1284 1720 Weight 55.1 kg 54 kg General appearance: PRESENT: thin Head exam: PRESENT: normocephalic Eye exam: PRESENT: EOMI Respiratory exam: PRESENT: unlabored Extremities exam: ABSENT: pedal edema Musculoskeletal exam: PRESENT: normal inspection Neurological exam: PRESENT: alert, awake Psychiatric exam: PRESENT: appropriate affect Skin exam: PRESENT: normal color Results Laboratory Results: 03/30/20 06:10 03/30/20 06:10 03/30/20 03/30/20 06:10 06:10 WBC 1.2 L* RBC 2.88 L Hgb 10.6 L Hct 30.7 L MCV 107 H MCH 36.9 H MCHC 34.6 RDW 25.1 H Plt Count 45 L Retic Count (auto) 1.87 Sodium 138.5 Potassium 5.1 H Chloride 110 H Carbon Dioxide 20 L Anion Gap 9 BUN 72 H Creatinine 1.74 H Est GFR ( Amer) 47 L Glucose 100 Calcium 9.0 Iron 53.2 TIBC 242 L % Saturation 22 Ferritin 424.00 Vitamin B12 908.0 Folate > 20.00 03/24/20 19:23 Blood Blood Culture - Final NO GROWTH IN 5 DAYS 03/24/20 15:40 Blood Blood Culture - Final NO GROWTH IN 5 DAYS 03/24/20 03/24/20 03/26/20 14:12 14:12 06:09 Creatine Kinase 59 Troponin I 0.124 NT-Pro-B Natriuret Pep [id number] H [id number] H 03/27/20 04:14 Creatine Kinase Troponin I NT-Pro-B Natriuret Pep [id number] H Impressions: Chest X-Ray 03/24/20 12:23 IMPRESSION: 1. New cardiomegaly. 2. Persistent right basilar infiltrate slightly improved from prior study. Renal Ultrasound 03/26/20 00:00 IMPRESSION: Unchanged bilateral renal cortical cysts and left renal atrophy. No hydronephrosis. Assessment & Plan - Diagnosis (1) Pancytopenia Is this a current diagnosis for this admission?: Yes Plan: His PLT and HGB have improved. However, his WBC count remains quite low. I am still unsure as to the cause of this. No evidence of bacterial or viral infection. His Ferritin, B12, and Folate were normal. Other labs (Na, Cr, etc) continue to improve since admission. If no improvement in the WBC count in the next 48 hours, will obtain bone marrow biopsy. Currently, neutropenia is not causing any clinical problems, so will continue to monitor for now. - Time Time Spent with patient: 15-24 minutes
[2020-03-30] MEDS: INSULIN LISPRO 100 UNIT/ML 3 ML VIAL SUBCUT SCH ×4 (09:15→22:18)
[2020-03-30] MEDS: NICOTINE 14 MG/24 HR PATCH.TD24 TD SCH (09:18)
[2020-03-30] MEDS: SACUBITRIL/VALSARTAN 24 MG/26 MG TABLET PO SCH ×2 (09:18→22:20)
[2020-03-30] MEDS: MIDODRINE HCL 5 MG TABLET PO SCH ×3 (09:18→17:46)
[2020-03-30] MEDS: CARVEDILOL 6.25 MG TABLET PO SCH ×2 (09:19→22:20)
--- NOTE | 2020-03-30 19:39 | PDOC PROGRESS REPORT ---
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 Patient was seen on afternoon rounds. He is found resting in bed, comfortably, on room air. Patient is technically oriented x4, however, remains somewhat forgetful and mildly confused. Does not remember me from yesterday. Reports continued fatigue and generalized weakness. Does express continued interest in SNF and then possible move to [place] to live near his daughters. Otherwise, he denies all complaints; specifically no fever, chills, chest pain, palpitations, dyspnea, cough, abdominal pain, nausea and vomiting. He does report a poor appetite. He has no other questions or concerns at this time. Nursing tells me that a nurse from [facility] called to check on the patient; apparently, he has been a longstanding patient at their clinic for squamous cell skin cancer. Nursing states they were informed that he is not pursuing any further diagnostics or treatments. Will request records as this may explain his pancytopenia. Reason For Visit: MARTHA,DEHYDRATION,FTT Physical Exam Vital Signs: Temp Pulse Resp BP Pulse Ox 97.3 F 70 21 H 91/55 L 89 L 03/30/20 16:37 03/30/20 16:37 03/30/20 16:37 03/30/20 16:37 03/30/20 16:37 Intake & Output 03/29/20 03/30/20 03/31/20 06:59 06:59 06:59 Intake Total 1784 1720 360 Output Total 500 100 Balance 1284 1720 260 Weight 55.1 kg 54 kg 54 kg General appearance: PRESENT: no acute distress, cooperative, thin, well- developed, well-nourished, other - Frail, chronically ill-appearing Head exam: PRESENT: atraumatic, normocephalic Eye exam: PRESENT: conjunctiva pink, EOMI, PERRLA. ABSENT: scleral icterus Mouth exam: PRESENT: moist, tongue midline Respiratory exam: PRESENT: clear to auscultation khushboo, symmetrical, unlabored, other - Oxygen by nasal cannula. ABSENT: rales, rhonchi, wheezes Cardiovascular exam: PRESENT: RRR, +S1, +S2. ABSENT: diastolic murmur, rubs, systolic murmur Pulses: PRESENT: normal dorsalis pedis pul Vascular exam: PRESENT: normal capillary refill GI/Abdominal exam: PRESENT: normal bowel sounds, soft. ABSENT: distended, guarding, mass, organolmegaly, rebound, tenderness Rectal exam: PRESENT: deferred Extremities exam: PRESENT: full ROM. ABSENT: calf tenderness, clubbing, pedal edema Neurological exam: PRESENT: alert, awake, oriented to person, oriented to place, oriented to time, oriented to situation, CN II-XII grossly intact, other - Continued forgetfulness, slight confusion noted. Improved from yesterday. ABSENT: motor sensory deficit Psychiatric exam: PRESENT: appropriate affect, normal mood. ABSENT: homicidal ideation, suicidal ideation Skin exam: PRESENT: dry, intact, warm. ABSENT: cyanosis, rash Results Laboratory Results: 03/30/20 06:10 03/30/20 06:10 03/30/20 03/30/20 06:10 06:10 WBC 1.2 L* RBC 2.88 L Hgb 10.6 L Hct 30.7 L MCV 107 H MCH 36.9 H MCHC 34.6 RDW 25.1 H Plt Count 45 L Retic Count (auto) 1.87 Sodium 138.5 Potassium 5.1 H Chloride 110 H Carbon Dioxide 20 L Anion Gap 9 BUN 72 H Creatinine 1.74 H Est GFR ( Amer) 47 L Glucose 100 Calcium 9.0 Iron 53.2 TIBC 242 L % Saturation 22 Ferritin 424.00 Vitamin B12 908.0 Folate > 20.00 03/24/20 19:23 Blood Blood Culture - Final NO GROWTH IN 5 DAYS 03/24/20 15:40 Blood Blood Culture - Final NO GROWTH IN 5 DAYS 03/24/20 03/24/20 03/26/20 14:12 14:12 06:09 Creatine Kinase 59 Troponin I 0.124 NT-Pro-B Natriuret Pep [id number] H [id number] H 03/27/20 04:14 Creatine Kinase Troponin I NT-Pro-B Natriuret Pep [id number] H Impressions: Chest X-Ray 03/24/20 12:23 IMPRESSION: 1. New cardiomegaly. 2. Persistent right basilar infiltrate slightly improved from prior study. Renal Ultrasound 03/26/20 00:00 IMPRESSION: Unchanged bilateral renal cortical cysts and left renal atrophy. No hydronephrosis. Assessment and Plan - Diagnosis (1) NYHA class 4 heart failure with reduced ejection fraction Is this a current diagnosis for this admission?: Yes Plan: Dr. Castaneda is consulted. Medications per his expertise. Patient currently on midodrine, carvedilol, Entresto. Encourage p.o. fluids. Cardiac diet. Daily weights, strict I&O's. (2) Acute kidney injury Is this a current diagnosis for this admission?: Yes Plan: Secondary to dehydration. Acute on chronic kidney injury has now resolved. Creatinine and BUN at baseline. Continue to avoid nephrotoxic medications. Renally dose where appropriate. Monitor with periodic chemistries. (3) Dehydration Is this a current diagnosis for this admission?: Yes Plan: Improved. His p.o. intake has improved. 1 L normal saline yesterday Encourage p.o. fluids. Monitor I's and O's and daily weights Follow-up chemistries. Daily weights, strict I&O's. (4) Pancytopenia Is this a current diagnosis for this admission?: Yes Plan: As per Dr. Estrada's notes, possibly related to Cardiorenal syndrome with cardiac cirrhosis. Hemoglobin overall stable; 10.6 today. WBCs have trended down slightly, platelet count wavering though it essentially stable throughout this admission. Decreased from prior admission last month. No evidence of active bleeding at this time. Anemia panel unremarkable Hematology consulted; appreciate Dr. Garza's evaluation and recommendations. Nursing received call from [facility] to check on the patient. Apparently he has been a longstanding patient there but is no longer undergoing diagnostics or treatment. Will request most recent progress note and CBC as this may explain his pancytopenia. (5) Physical deconditioning Is this a current diagnosis for this admission?: Yes Plan: PT/OT consulted. Patient interested in SNF placement. Discharge planning consulted. (6) Tobacco dependence Is this a current diagnosis for this admission?: Yes Plan: Smoking cessation encouraged. Nicotine replacement therapies provided. (7) UTI (urinary tract infection) Qualifiers: Urinary tract infection type: acute cystitis Hematuria presence: without hematuria Qualified Code(s): N30.00 - Acute cystitis without hematuria Is this a current diagnosis for this admission?: Yes Plan: Ruled out. Urinalysis positive for blood and leuk esterase. Urine culture revealed normal jessica. Received ceftriaxone x2 doses. (8) Protein-energy malnutrition Qualifiers: Protein-calorie malnutrition severity: moderate Qualified Code(s): E44.0 - Moderate protein-calorie malnutrition Is this a current diagnosis for this admission?: Yes Plan: BMI 19.8. Patient is consuming 25-75 % of his meals. He also has a high energy expenditure related to his CHF. Agree with Dr. Brizuela's assessment of malnourishment. Registered dietitian is consulted. - Time Time Spent with patient: 25-34 minutes Medications reviewed and adjusted accordingly: Yes Anticipated Discharge Disposition: [facility] Facility Anticipated Discharge Timeframe: within 48 hours
--- NOTE | 2020-03-30 23:28 | Progress Note ---
Provider Note Provider Note: CARDIOLOGY PROGRESS NOTE by Dr. Alicia Brizuela on 03/30/2020. Subjective: The patient states he feels better. He is able to sit up in the chair for short period of time. He denies any chest pain discomfort. Is able to lie down flat he denies shortness of breath. There is no PND orthopnea. There is no arrhythmias seen on the monitor. There is no firing of his AICD. Midodrine is marginally raised his blood pressure and he is getting most of his anticardiomyopathy medication. PHYSICAL EXAMINATION: The patient is a frail build, and appears to be chronically ill and malnourished. In no acute distress. Selected Entries 03/30/20 07:23 Temperature 97.5 F Temperature Oral Source Pulse Rate 80 Respiratory 18 Rate Blood Pressure 107/65 Blood Pressure 79 Mean BP Location Left Arm BP Position Supine O2 Sat by Pulse 91 L Oximetry Oxygen Delivery Room Air Method PHYSICAL EXAMINATION: The patient is chronically ill and malnourished. But in no acute distress. He is lying down flat in bed. HEAD: Is atraumatic normocephalic. EYES: Pupils are equal round regular reactive to light and accommodation. Extraocular movements are normal. There is no conjunctival pallor. There is no scleral icterus. EARS: Tympanic membranes are intact. External auditory canals are clear. NOSE: There is no deviated nasal septum. There is no inflammation of the nasal mucous membrane. MOUTH: Mucous membranes of mouth are just moist, tongue is moist. THROAT: There is no redness of the oropharynx. There is no exudates. 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 There is no catie-care ecchymosis. NECK: Supple. There is no JVD present. Carotids are equal there is no bruit. There is no lymphadenopathy. There is no goiter. There is no accessory muscle respiration use. Trachea central. LUNGS: Shows diminished air entry prolonged expiration . There is no rhonchi or rales or wheezing. There is no chest wall tenderness on palpation. On palpation there is hyperresonance. There is no bibasilar rales of heart failure. HEART: S1-S2 is heard. There is no S3 gallop. There is no S4 gallop there is systolic murmur left sternal border and the apex there is no rub. ABDOMEN: Soft. There is no hepatosplenomegaly. Bowel sounds are normal. There is no hepatosplenomegaly. EXTREMITIES: There is diminished bilateral femoral pulses with bruits. 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 He has bilateral femoral bruits present. Leg pulses are diminished. There is no pedal edema bilaterally. There is no DVT or cellulitis. There is no cyanosis or clubbing. MACHINE RIVETER: The patient is asleep, but when aroused/awaken he is oriented x3 with no focal deficit. The patient's 24-hour intake and output record is not accurate. Labs- All tests 24 hr 03/30/20 03/30/20 03/30/20 06:10 06:10 07:30 WBC 1.2 L* RBC 2.88 L Hgb 10.6 L Hct 30.7 L MCV 107 H MCH 36.9 H MCHC 34.6 RDW 25.1 H Plt Count 45 L Reticulocyte # 0.054 Retic Count (auto) 1.87 Sodium 138.5 Potassium 5.1 H Chloride 110 H Carbon Dioxide 20 L Anion Gap 9 BUN 72 H Creatinine 1.74 H Est GFR ( Amer) 47 L Est GFR (MDRD) Non-Af 39 L Glucose 100 POC Glucose Calcium 9.0 Iron 53.2 TIBC 242 L % Saturation 22 Ferritin 424.00 Vitamin B12 908.0 Folate > 20.00 Influenza A (RT-PCR) NEGATIVE Influenza B (RT-PCR) NEGATIVE RSV (RT-PCR) NEGATIVE SARS-CoV-2 Rap RNA(RT-PCR) NEGATIVE 03/30/20 03/30/20 03/30/20 08:51 12:09 17:11 WBC RBC Hgb Hct MCV MCH MCHC RDW Plt Count Reticulocyte # Retic Count (auto) Sodium Potassium Chloride Carbon Dioxide Anion Gap BUN Creatinine Est GFR ( Amer) Est GFR (MDRD) Non-Af Glucose POC Glucose 92 104 106 Calcium Iron TIBC % Saturation Ferritin Vitamin B12 Folate Influenza A (RT-PCR) Influenza B (RT-PCR) RSV (RT-PCR) SARS-CoV-2 Rap RNA(RT-PCR) 03/30/20 20:53 WBC RBC Hgb Hct MCV MCH MCHC RDW Plt Count Reticulocyte # Retic Count (auto) Sodium Potassium Chloride Carbon Dioxide Anion Gap BUN Creatinine Est GFR ( Amer) Est GFR (MDRD) Non-Af Glucose POC Glucose 108 Calcium Iron TIBC % Saturation Ferritin Vitamin B12 Folate Influenza A (RT-PCR) Influenza B (RT-PCR) RSV (RT-PCR) SARS-CoV-2 Rap RNA(RT-PCR) . Chest X-Ray 03/24/20 12:23 IMPRESSION: 1. New cardiomegaly. 2. Persistent right basilar infiltrate slightly improved from prior study. Renal Ultrasound 03/26/20 00:00 IMPRESSION: Unchanged bilateral renal cortical cysts and left renal atrophy. No hydronephrosis. IMPRESSION/RECOMMENDATION: 1. Severe dehydration, and UTI: Agree with gentle hydration watch for volume overload. Note the patient has done well with IV fluids. He is now taking p.o. liquids. Dehydration is improved. Continue antibiotics. 2. Acute renal failure: Secondary to dehydration and also possibly decreased cardiac output secondary to decrease in optimal preload due to dehydration. 3. Thrombocytopenia: Watch for overt bleeding. 4. History of severe GI bleed and anemia secondary to gastric ulcer. Watch out for recurrence of bleeding. 5. History of gastric ulcer with bleeding. Later would see if the patient can have a repeat endoscopy to see if the ulcer is healed. 6. Cardiomyopathy with severely reduced LV ejection fraction. In view of the patient's renal function status agree with holding the patient's Entresto for now. Restart later after hydration. We will start the patient on midodrine to get his blood pressure up. Will restart the patient's Coreg at 6.25 mg p.o. e very 12 hours. We will start the patient on small dose of hydralazine 10 mg p.o. 3 times daily. I will increase midodrine to 10 mg p.o. 3 times daily. We will hold off on the Entresto for now due to his renal function. 7. Coronary artery disease: History of [place]: No anginal symptoms. 8. Severe pulmonary hypertension: Secondary to left heart failure and due to COPD. 9.COPD: No evidence of acute exacerbation. 10. History of hypertension: The patient in the recent past has been on midodrine. The patient's blood pressure stable at present. 11. Hypothyroidism: Continue replacement 12. AICD placement: No firing of his AICD. Medications reviewed. Medical regimen and management plan discussed with attending provider on the case. Medical decision making is of high complexity. 40 minutes spent on this patient more than 50% time spent direct patient care. Will follow.
[2020-03-31 07:26] LABS: HEMATOCRIT 31.3 % (37.9-51.0); HEMOGLOBIN 10.9 g/dL (13.5-17.0); MEAN CORPUSCULAR HEMOGLOBIN 37.2 pg (27.0-33.4); MEAN CORPUSCULAR HGB CONC 34.9 g/dL (32.0-36.0); MEAN CORPUSCULAR VOLUME 107 fl (80-97); RED BLOOD COUNT 2.94 10^6/uL (4.35-5.55); RED CELL DISTRIBUTION WIDTH 25.7 % (11.5-14.0)
[2020-03-31] MEDS: INSULIN LISPRO 100 UNIT/ML 3 ML VIAL SUBCUT SCH ×4 (07:41→21:52)
[2020-03-31 07:44] LABS: ANION GAP 8 (5-19); BLOOD UREA NITROGEN 70 mg/dL (7-20); CALCIUM 9.1 mg/dL (8.4-10.2); CARBON DIOXIDE 21 mmol/L (22-30); CHLORIDE 108 mmol/L (98-107); GLUCOSE 99 mg/dL (75-110); POTASSIUM 4.6 mmol/L (3.6-5.0)
[2020-03-31 08:39] LABS: PLATELET COUNT 46 10^3/uL (150-450)
[2020-03-31] MEDS: NICOTINE 14 MG/24 HR PATCH.TD24 TD SCH (10:55)
[2020-03-31] MEDS: CARVEDILOL 6.25 MG TABLET PO SCH ×2 (10:58→21:52)
[2020-03-31] MEDS: SACUBITRIL/VALSARTAN 24 MG/26 MG TABLET PO SCH ×2 (10:58→21:52)
[2020-03-31] MEDS: MIDODRINE HCL 5 MG TABLET PO SCH ×3 (10:59→18:25)
--- NOTE | 2020-03-31 19:31 | PDOC PROGRESS REPORT ---
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 Patient was seen on morning rounds. He is found resting in bed, comfortably, on room air. Patient is technically oriented x4, however, remains somewhat forgetful and mildly confused. Only complaint today is fatigue. Otherwise, he denies all complaints; specifically no fever, chills, chest pain, palpitations, dyspnea, cough, abdominal pain, nausea and vomiting. He does report a poor appetite. He has no other questions or concerns at this time. No concerns per nursing. Reason For Visit: MARTHA,DEHYDRATION,FTT Physical Exam Vital Signs: Temp Pulse Resp BP Pulse Ox 97.3 F 70 20 98/58 L 92 03/31/20 12:42 03/31/20 12:42 03/31/20 12:42 03/31/20 12:42 03/31/20 12:42 Intake & Output 03/30/20 03/31/20 04/01/20 06:59 06:59 06:59 Intake Total 1720 360 240 Output Total 100 Balance 1720 260 240 Weight 54 kg 54 kg 54 kg General appearance: PRESENT: no acute distress, cooperative, thin - Cachectic, well-developed, other - Frail, chronically ill-appearing Head exam: PRESENT: atraumatic, normocephalic Eye exam: PRESENT: conjunctiva pink, EOMI, PERRLA. ABSENT: scleral icterus Mouth exam: PRESENT: moist, tongue midline Teeth exam: PRESENT: poor dentation Respiratory exam: PRESENT: clear to auscultation [place]o, symmetrical, unlabored, other - Room air. ABSENT: rales, rhonchi, wheezes Cardiovascular exam: PRESENT: RRR. ABSENT: diastolic murmur, rubs, systolic murmur Pulses: PRESENT: normal dorsalis pedis pul Vascular exam: PRESENT: normal capillary refill Extremities exam: PRESENT: full ROM. ABSENT: calf tenderness, clubbing, pedal e kieran Neurological exam: PRESENT: alert, awake, oriented to person, oriented to place, oriented to time, oriented to situation, CN II-XII grossly intact, other - Forgetful, slight confusion. ABSENT: motor sensory deficit Psychiatric exam: PRESENT: flat affect, normal mood. ABSENT: homicidal ideation, suicidal ideation Skin exam: PRESENT: dry, intact, warm. ABSENT: cyanosis, rash Results Laboratory Results: 03/31/20 06:38 03/31/20 06:38 03/31/20 03/31/20 06:38 06:38 WBC 2.0 L RBC 2.94 L Hgb 10.9 L Hct 31.3 L MCV 107 H MCH 37.2 H MCHC 34.9 RDW 25.7 H Plt Count 46 L Sodium 137.2 Potassium 4.6 Chloride 108 H Carbon Dioxide 21 L Anion Gap 8 BUN 70 H Creatinine 1.81 H Est GFR ( Amer) 45 L Glucose 99 Calcium 9.1 03/24/20 03/24/20 03/26/20 14:12 14:12 06:09 Creatine Kinase 59 Troponin I 0.124 NT-Pro-B Natriuret Pep 236192 H [id number] H 03/27/20 04:14 Creatine Kinase Troponin I NT-Pro-B Natriuret Pep [id number] H Impressions: Chest X-Ray 03/24/20 12:23 IMPRESSION: 1. New cardiomegaly. 2. Persistent right basilar infiltrate slightly improved from prior study. Renal Ultrasound 03/26/20 00:00 IMPRESSION: Unchanged bilateral renal cortical cysts and left renal atrophy. No hydronephrosis. Assessment and Plan - Diagnosis (1) NYHA class 4 heart failure with reduced ejection fraction Is this a current diagnosis for this admission?: Yes Plan: Dr. Castaneda is consulted. Medications per his expertise. Patient currently on midodrine, carvedilol, Entresto. Encourage p.o. fluids. Cardiac diet. Daily weights, strict I&O's. (2) Pancytopenia Is this a current diagnosis for this admission?: Yes Plan: Improved; WBCs, hemoglobin, and platelets now gradually trending up. No evidence of active bleeding at this time. Anemia panel unremarkable Hematology consulted; appreciate Dr. Garza's evaluation and recommendations. Nursing received call from [facility] to check on the patient. Apparently he has been a longstanding patient there but is no longer undergoing diagnostics or treatment. Have requested most recent progress note and CBC as this may explain his pancytopenia. (3) Physical deconditioning Is this a current diagnosis for this admission?: Yes Plan: PT/OT consulted. Patient interested in SNF placement. Discharge planning consulted. (4) Tobacco dependence Is this a current diagnosis for this admission?: Yes Plan: Smoking cessation encouraged. Nicotine replacement therapies provided. (5) Protein-energy malnutrition Qualifiers: Protein-calorie malnutrition severity: moderate Qualified Code(s): E44.0 - Moderate protein-calorie malnutrition Is this a current diagnosis for this admission?: Yes Plan: BMI 19.8. Patient is consuming 25-75 % of his meals. He also has a high energy expenditure related to his CHF. Agree with Dr. Brizuela's assessment of malnourishment. Registered dietitian is consulted. (6) Dehydration Is this a current diagnosis for this admission?: Yes Plan: Resolved. His p.o. intake has improved. 1 L normal saline yesterday Encourage p.o. fluids. Daily weights, strict I&O's. (7) Acute kidney injury Is this a current diagnosis for this admission?: Yes Plan: Acute on chronic kidney injury has now resolved. Creatinine and BUN at baseline. CR 1.89-> 1.79-> 1.74->1.81; down from 2.35 Secondary to dehydration. Continue to avoid nephrotoxic medications. Renally dose where appropriate. Monitor with periodic chemistries. (8) UTI (urinary tract infection) Qualifiers: Urinary tract infection type: acute cystitis Hematuria presence: without hematuria Qualified Code(s): N30.00 - Acute cystitis without hematuria Is this a current diagnosis for this admission?: Yes Plan: Ruled out. Urinalysis positive for blood and leuk esterase. Urine culture revealed normal jessica. Received ceftriaxone x2 doses. - Time Time Spent with patient: 25-34 minutes Medications reviewed and adjusted accordingly: Yes Anticipated Discharge Disposition: Assisted Facility Anticipated Discharge Timeframe: when bed available
--- NOTE | 2020-03-31 20:01 | Progress Note ---
Provider Note Provider Note: CARDIOLOGY PROGRESS NOTE by Dr. Alicia Brizuela on 03/31/2020. Subjective: The patient states he feels better. He is able to sit up in the chair for short period of time. He denies any chest pain discomfort. Is able to lie down flat he denies shortness of breath. There is no PND orthopnea. There is no arrhythmias seen on the monitor. There is no firing of his AICD. Midodrine is marginally raised his blood pressure and he is getting most of his anticardiomyopathy medication. PHYSICAL EXAMINATION: The patient is a frail build, and appears to be chronically ill and malnourished. In no acute distress. Selected Entries 03/31/20 16:39 Temperature 97.3 F Temperature Oral Source Pulse Rate 78 Respiratory 16 Rate Blood Pressure 101/66 Blood Pressure 77 Mean BP Location Left Arm BP Position Supine Oxygen Delivery Room Air Method PHYSICAL EXAMINATION: The patient is chronically ill and malnourished. But in no acute distress. He is lying down flat in bed. HEAD: Is atraumatic normocephalic. EYES: Pupils are equal round regular reactive to light and accommodation. Extraocular movements are normal. There is no conjunctival pallor. There is no scleral icterus. EARS: Tympanic membranes are intact. External auditory canals are clear. NOSE: There is no deviated nasal septum. There is no inflammation of the nasal mucous membrane. MOUTH: Mucous membranes of mouth are just moist, tongue is moist. THROAT: There is no redness of the oropharynx. There is no exudates. 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 There is no catie-care ecchymosis. NECK: Supple. There is no JVD present. Carotids are equal there is no bruit. There is no lymphadenopathy. There is no goiter. There is no accessory muscle respiration use. Trachea central. LUNGS: Shows diminished air entry prolonged expiration . There is no rhonchi or rales or wheezing. There is no chest wall tenderness on palpation. On palpation there is hyperresonance. There is no bibasilar rales of heart failure. HEART: S1-S2 is heard. There is no S3 gallop. There is no S4 gallop there is systolic murmur left sternal border and the apex there is no rub. ABDOMEN: Soft. There is no hepatosplenomegaly. Bowel sounds are normal. There is no hepatosplenomegaly. EXTREMITIES: There is diminished bilateral femoral pulses with bruits. 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 He has bilateral femoral bruits present. Leg pulses are diminished. There is no pedal edema bilaterally. There is no DVT or cellulitis. There is no cyanosis or clubbing. MEDICAL FRONT DESK COORDINATOR: The patient is asleep, but when aroused/awaken he is oriented x3 with no focal deficit. Labs- All tests 24 hr 03/31/20 03/31/20 03/31/20 06:38 06:38 06:47 WBC 2.0 L RBC 2.94 L Hgb 10.9 L Hct 31.3 L MCV 107 H MCH 37.2 H MCHC 34.9 RDW 25.7 H Plt Count 46 L Sodium 137.2 Potassium 4.6 Chloride 108 H Carbon Dioxide 21 L Anion Gap 8 BUN 70 H Creatinine 1.81 H Est GFR ( Amer) 45 L Est GFR (MDRD) Non-Af 37 L Glucose 99 POC Glucose 97 Calcium 9.1 03/31/20 03/31/20 03/31/20 08:01 12:37 16:34 WBC RBC Hgb Hct MCV MCH MCHC RDW Plt Count Sodium Potassium Chloride Carbon Dioxide Anion Gap BUN Creatinine Est GFR ( Amer) Est GFR (MDRD) Non-Af Glucose POC Glucose 95 139 H 162 H Calcium 03/31/20 21:19 WBC RBC Hgb Hct MCV MCH MCHC RDW Plt Count Sodium Potassium Chloride Carbon Dioxide Anion Gap BUN Creatinine Est GFR ( Amer) Est GFR (MDRD) Non-Af Glucose POC Glucose 119 H Calcium Chest X-Ray 03/24/20 12:23 IMPRESSION: 1. New cardiomegaly. 2. Persistent right basilar infiltrate slightly improved from prior study. Renal Ultrasound 03/26/20 00:00 IMPRESSION: Unchanged bilateral renal cortical cysts and left renal atrophy. No hydronephrosis. IMPRESSION/RECOMMENDATION: 1. Severe dehydration, and UTI: These issues seems to have resolved. 2. Acute renal failure: Secondary to dehydration and also possibly decreased cardiac output secondary to decrease in optimal preload due to dehydration. Renal function is slowly improving. 3. Thrombocytopenia: Watch for overt bleeding. 4. History of severe GI bleed and anemia secondary to gastric ulcer. Watch out for recurrence of bleeding. 5. History of gastric ulcer with bleeding. Later would see if the patient can have a repeat endoscopy to see if the ulcer is healed. 6. Cardiomyopathy with severely reduced LV ejection fraction. In view of the patient's renal function status agree with holding the patient's Entresto for now. Restart later after hydration. We will start the patient on midodrine to get his blood pressure up. Will restart the patient's Coreg at 6.25 mg p.o. every 12 hours. We will start the patient on small dose of hydralazine 10 mg p.o. 3 times daily. I will increase midodrine to 10 mg p.o. 3 times daily. We will hold off on the Entresto for now due to his renal function. 7. Coronary artery disease: History of [place]: No anginal symptoms. 8. Severe pulmonary hypertension: Secondary to left heart failure and due to COPD. 9.COPD: No evidence of acute exacerbation. 10. History of hypertension: The patient in the recent past has been on midodrine. The patient's blood pressure stable at present. 11. Hypothyroidism: Continue replacement 12. AICD placement: No firing of his AICD. Medications reviewed. Medical regimen and management plan discussed with atte nding provider on the case. Medical decision making is of high complexity. 40 minutes spent on this patient more than 50% time spent direct patient care. Will follow.
[2020-04-01 07:57] LABS: HEMATOCRIT 30.2 % (37.9-51.0); HEMOGLOBIN 10.3 g/dL (13.5-17.0); MEAN CORPUSCULAR HEMOGLOBIN 36.3 pg (27.0-33.4); MEAN CORPUSCULAR VOLUME 107 fl (80-97); RED BLOOD COUNT 2.83 10^6/uL (4.35-5.55); WHITE BLOOD COUNT 2.8 10^3/uL (4.0-10.5)
[2020-04-01] MEDS: ONDANSETRON HCL INJ/PF 4 MG/2 ML SDV IV PRN (08:43)
[2020-04-01 08:48] LABS: PLATELET COUNT 48 10^3/uL (150-450)
--- NOTE | 2020-04-01 09:12 | PDOC PROGRESS REPORT ---
Subjective Date:: 04/01/20 Subjective:: Patient sleeping peacefully but awakens easily. He was complaining to nurses ab out back pain and requesting tylenol. Otherwise, no concerns. He remains afebrile but has not been up walking much. He is able to sit up in chair for periods. Reason For Visit: MARTHA,DEHYDRATION,FTT Physical Exam Vital Signs: Temp Pulse Resp BP Pulse Ox 97.4 F 69 18 100/60 94 04/01/20 00:00 04/01/20 02:00 04/01/20 00:00 04/01/20 00:00 04/01/20 00:00 Intake & Output 03/31/20 04/01/20 04/02/20 06:59 06:59 06:59 Intake Total 360 1150 Output Total 100 100 Balance 260 1050 Weight 54 kg 55.1 kg General appearance: PRESENT: thin, well-developed Head exam: PRESENT: normocephalic Respiratory exam: PRESENT: unlabored Neurological exam: PRESENT: awake Psychiatric exam: PRESENT: appropriate affect Skin exam: PRESENT: normal color Results Laboratory Results: 04/01/20 07:37 03/31/20 06:38 04/01/20 07:37 WBC 2.8 L RBC 2.83 L Hgb 10.3 L Hct 30.2 L MCV 107 H MCH 36.3 H MCHC 34.0 RDW 26.0 H Plt Count 48 L 03/24/20 03/24/20 03/26/20 14:12 14:12 06:09 Creatine Kinase 59 Troponin I 0.124 NT-Pro-B Natriuret Pep [id number] H [id number] H 03/27/20 04:14 Creatine Kinase Troponin I NT-Pro-B Natriuret Pep [id number] H Impressions: Chest X-Ray 03/24/20 12:23 IMPRESSION: 1. New cardiomegaly. 2. Persistent right basilar infiltrate slightly improved from prior study. Renal Ultrasound 03/26/20 00:00 IMPRESSION: Unchanged bilateral renal cortical cysts and left renal atrophy. No hydronephrosis. Assessment & Plan - Diagnosis (1) Pancytopenia Is this a current diagnosis for this admission?: Yes Plan: He has chronic HGB and PLT decreases due to underlying heart and liver issues, but these are returning to his baseline. No evidence of bleeding. He had a profound neutropenia, but this has now resolved and his WBC count is much better. - Time Time Spent with patient: Less than 15 minutes - Plan Summary Plan Summary: I will sign off. Please call if any further concerns.
[2020-04-01] MEDS: INSULIN LISPRO 100 UNIT/ML 3 ML VIAL SUBCUT SCH ×4 (09:16→21:35)
[2020-04-01] MEDS: MIDODRINE HCL 5 MG TABLET PO SCH ×3 (09:20→17:18)
[2020-04-01] MEDS: ACETAMINOPHEN 325 MG TABLET PO PRN (09:21)
[2020-04-01] MEDS: NICOTINE 14 MG/24 HR PATCH.TD24 TD SCH (09:21)
[2020-04-01] MEDS: SACUBITRIL/VALSARTAN 24 MG/26 MG TABLET PO SCH ×2 (09:21→21:37)
[2020-04-01] MEDS: CARVEDILOL 6.25 MG TABLET PO SCH ×2 (09:21→21:34)
[2020-04-01] MEDS ORDERED: LEVALBUTEROL HCL NEB 1.25 MG/3 ML AMPUL NEB PRN (11:50)
[2020-04-01] MEDS: DULOXETINE HCL 20 MG CAPSULE.DR PO SCH (14:18)
--- NOTE | 2020-04-01 18:00 | PDOC PROGRESS REPORT ---
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 Patient was seen on morning rounds. He is found resting in bed, comfortably, on room air. Patient is technically oriented x4, however, remains somewhat forgetful and mildly confused. Continues to complain of fatigue. We discussed that it takes a lot of energy for his heart to work and so he will likely always feel somewhat tired; patient agreed and stated he had been told this before. Otherwise, he denies all complaints; specifically no fever, chills, chest pain, palpitations, dyspnea, cough, abdominal pain. He does report a poor appetite. He has no other questions or concerns at this time. Nursing reports one episode of post-tussive emesis this morning. Reason For Visit: MARTHA,DEHYDRATION,FTT Physical Exam Vital Signs: Temp Pulse Resp BP Pulse Ox 97.9 F 73 25 H 106/59 L 94 04/01/20 16:08 04/01/20 17:04 04/01/20 17:04 04/01/20 16:08 04/01/20 17:04 Intake & Output 03/31/20 04/01/20 04/02/20 06:59 06:59 06:59 Intake Total 360 1150 260 Output Total 100 100 Balance 260 1050 260 Weight 54 kg 55.1 kg General appearance: PRESENT: no acute distress, cooperative, thin - Cachectic, well-developed, other - Frail, chronically ill-appearing Head exam: PRESENT: atraumatic, normocephalic Eye exam: PRESENT: conjunctiva pink, EOMI, PERRLA. ABSENT: scleral icterus Mouth exam: PRESENT: moist, tongue midline Teeth exam: PRESENT: poor dentation Respiratory exam: PRESENT: prolonged expiratory phas, rhonchi - Bilaterally, symmetrical, unlabored, other - Room air. ABSENT: rales, wheezes Cardiovascular exam: PRESENT: RRR. ABSENT: diastolic murmur, rubs, systolic murmur Pulses: PRESENT: normal dorsalis pedis pul Vascular exam: PRESENT: normal capillary refill Extremities exam: PRESENT: full ROM. ABSENT: calf tenderness, clubbing, pedal edema Neurological exam: PRESENT: alert, awake, oriented to person, oriented to place, oriented to time, oriented to situation, CN II-XII grossly intact, other - Intermittent, slight confusion.. ABSENT: motor sensory deficit Psychiatric exam: PRESENT: appropriate affect, normal mood. ABSENT: homicidal ideation, suicidal ideation Skin exam: PRESENT: dry, intact, warm. ABSENT: cyanosis, rash Results Laboratory Results: 04/01/20 07:37 03/31/20 06:38 04/01/20 07:37 WBC 2.8 L RBC 2.83 L Hgb 10.3 L Hct 30.2 L MCV 107 H MCH 36.3 H MCHC 34.0 RDW 26.0 H Plt Count 48 L 03/24/20 03/24/20 03/26/20 14:12 14:12 06:09 Creatine Kinase 59 Troponin I 0.124 NT-Pro-B Natriuret Pep [id number] H [id number] H 03/27/20 04:14 Creatine Kinase Troponin I NT-Pro-B Natriuret Pep [id number] H Impressions: Chest X-Ray 03/24/20 12:23 IMPRESSION: 1. New cardiomegaly. 2. Persistent right basilar infiltrate slightly improved from prior study. Renal Ultrasound 03/26/20 00:00 IMPRESSION: Unchanged bilateral renal cortical cysts and left renal atrophy. No hydronephrosis. Assessment and Plan - Diagnosis (1) NYHA class 4 heart failure with reduced ejection fraction Is this a current diagnosis for this admission?: Yes Plan: Dr. Castaneda is consulted. Medications per his expertise. Patient currently on midodrine, carvedilol, Entresto. Encourage p.o. fluids. Cardiac diet. Daily weights, strict I&O's. (2) Pancytopenia Is this a current diagnosis for this admission?: Yes Plan: Improved; WBCs, hemoglobin, and platelets now gradually trending up. No evidence of active bleeding at this time. Anemia panel unremarkable Hematology was consulted; as pancytopenia is related to CHF and cirrhosis, and now improving, they have signed off. Outpatient PCP follow-up. (3) Physical deconditioning Is this a current diagnosis for this admission?: Yes Plan: PT/OT consulted. Patient interested in SNF placement. Discharge planning consulted. (4) Tobacco dependence Is this a current diagnosis for this admission?: Yes Plan: Smoking cessation encouraged. Nicotine replacement therapies provided. (5) Protein-energy malnutrition Qualifiers: Protein-calorie malnutrition severity: moderate Qualified Code(s): E44.0 - Moderate protein-calorie malnutrition Is this a current diagnosis for this admission?: Yes Plan: BMI 20.2 Patient is consuming 25-75 % of his meals. He also has a high energy expenditure related to his CHF. Agree with Dr. Brizuela's assessment of malnourishment. Registered dietitian is consulted. (6) Dehydration Is this a current diagnosis for this admission?: Yes Plan: Resolved. His p.o. intake has improved. 1 L normal saline yesterday Encourage p.o. fluids. Daily weights, strict I&O's. (7) Acute kidney injury Is this a current diagnosis for this admission?: Yes Plan: Acute on chronic kidney injury has now resolved. Creatinine and BUN at baseline. CR 1.89-> 1.79-> 1.74->1.81; down from 2.35 Secondary to dehydration. Continue to avoid nephrotoxic medications. Renally dose where appropriate. Monitor with periodic chemistries. (8) UTI (urinary tract infection) Qualifiers: Urinary tract infection type: acute cystitis Hematuria presence: without hematuria Qualified Code(s): N30.00 - Acute cystitis without hematuria Is this a current diagnosis for this admission?: Yes Plan: Ruled out. Urinalysis positive for blood and leuk esterase. Urine culture revealed normal jessica. Received ceftriaxone x2 doses. - Time Time Spent with patient: 15-24 minutes Medications reviewed and adjusted accordingly: Yes Anticipated Discharge Disposition: [facility] Anticipated Discharge Timeframe: when bed available
[2020-04-01] MEDS: IPRATROPIUM/ALBUTEROL 0.5-2.5 MG/3 ML AMPUL NEB SCH (20:39)
--- NOTE | 2020-04-01 20:47 | Progress Note ---
Provider Note Provider Note: CARDIOLOGY PROGRESS NOTE by Dr. Alicia Brizuela on 04/01/2020. Subjective: The patient states he feels better. He is able to sit up in the chair for short period of time. He denies any chest pain discomfort. Is able to lie down flat he denies shortness of breath. There is no PND orthopnea. There is no arrhythmias seen on the monitor. There is no firing of his AICD. Midodrine is marginally raised his blood pressure and he is getting most of his anticardiomyopathy medication. In spite of the appetite being good, he appears to be listless and without any motivation, and states he feels very tired. Hence the patient appears depressed. We will start the patient on antidepressant. PHYSICAL EXAMINATION: The patient is a frail build, and appears to be chronically ill and malnourished. In no acute distress. Selected Entries 04/01/20 08:07 Temperature 97.9 F Temperature Oral Source Pulse Rate 71 Respiratory 22 H Rate Blood Pressure 113/74 Blood Pressure 87 Mean BP Location Right Arm BP Position Sitting O2 Sat by Pulse 91 L Oximetry Oxygen Delivery Room Air Method PHYSICAL EXAMINATION: The patient is chronically ill and malnourished. But in no acute distress. He is lying down flat in bed. HEAD: Is atraumatic normocephalic. EYES: Pupils are equal round regular reactive to light and accommodation. Extraocular movements are normal. There is no conjunctival pallor. There is no scleral icterus. EARS: Tympanic membranes are intact. External auditory canals are clear. NOSE: There is no deviated nasal septum. There is no inflammation of the nasal mucous membrane. MOUTH: Mucous membranes of mouth are just moist, tongue is moist. THROAT: There is no redness of the oropharynx. There is no exudates. 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 There is no catie-care ecchymosis. NECK: Supple. There is no JVD present. Carotids are equal there is no bruit. There is no lymphadenopathy. There is no goiter. There is no accessory muscle respiration use. Trachea central. LUNGS: Shows diminished air entry prolonged expiration . There is no rhonchi or rales or wheezing. There is no chest wall tenderness on palpation. On palpation there is hyperresonance. There is no bibasilar rales of heart failure. HEART: S1-S2 is heard. There is no S3 gallop. There is no S4 gallop there is systolic murmur left sternal border and the apex there is no rub. ABDOMEN: Soft. There is no hepatosplenomegaly. Bowel sounds are normal. There is no hepatosplenomegaly. EXTREMITIES: There is diminished bilateral femoral pulses with bruits. 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 He has bilateral femoral bruits present. Leg pulses are diminished. There is no pedal edema bilaterally. There is no DVT or cellulitis. There is no cyanosis or clubbing. 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 Labs- All tests 24 hr 03/31/20 04/01/20 04/01/20 21:19 06:16 07:37 WBC 2.8 L RBC 2.83 L Hgb 10.3 L Hct 30.2 L MCV 107 H MCH 36.3 H MCHC 34.0 RDW 26.0 H Plt Count 48 L POC Glucose 119 H 103 04/01/20 04/01/20 11:29 16:14 WBC RBC Hgb Hct MCV MCH MCHC RDW Plt Count POC Glucose 155 H 158 H Chest X-Ray 03/24/20 12:23 IMPRESSION: 1. New cardiomegaly. 2. Persistent right basilar infiltrate slightly improved from prior study. Renal Ultrasound 03/26/20 00:00 IMPRESSION: Unchanged bilateral renal cortical cysts and left renal atrophy. No hydronephrosis. IMPRESSION/RECOMMENDATION: 1. Severe dehydration, and UTI: These issues seems to have resolved. 2. Acute renal failure: Secondary to dehydration and also possibly decreased cardiac output secondary to decrease in optimal preload due to dehydration. Renal function is slowly improving. 3. Thrombocytopenia: Watch for overt bleeding. 4. History of severe GI bleed and anemia secondary to gastric ulcer. Watch out for recurrence of bleeding. 5. History of gastric ulcer with bleeding. Later would see if the patient can have a repeat endoscopy to see if the ulcer is healed. 6. Cardiomyopathy with severely reduced LV ejection fraction. In view of the patient's renal function status agree with holding the patient's Entresto for now. Restart later after hydration. We will start the patient on midodrine to get his blood pressure up. Will restart the patient's Coreg at 6.25 mg p.o. every 12 hours. We will start the patient on small dose of hydralazine 10 mg p.o. 3 times daily. I will increase midodrine to 10 mg p.o. 3 times daily. We will hold off on the Entresto for now due to his renal function. 7. Coronary artery disease: History of NE: No anginal symptoms. 8. Severe pulmonary hypertension: Secondary to left heart failure and due to COPD. 9.COPD: No evidence of acute exacerbation. 10. History of hypertension: The patient in the recent past has been on midodrine. The patient's blood pressure stable at present. 11. Hypothyroidism: Continue replacement 12. AICD placement: No firing of his AICD. 13. Depression: We will start the patient on Cymbalta 14. Chronic debility and deconditioning Medications reviewed. New medications added. Medical regimen and management plan discussed with attending provider on the case. Medical decision making is of high complexity. 40 minutes spent on this patient more than 50% time spent direct patient care. Will follow.
[2020-04-01] MEDS: GUAIFENESIN 600 MG TABLET.SA PO SCH (21:35)
[2020-04-02] MEDS: IPRATROPIUM/ALBUTEROL 0.5-2.5 MG/3 ML AMPUL NEB SCH ×2 (09:00→20:57)
[2020-04-02] MEDS: INSULIN LISPRO 100 UNIT/ML 3 ML VIAL SUBCUT SCH ×4 (09:03→21:21)
[2020-04-02] MEDS: NICOTINE 14 MG/24 HR PATCH.TD24 TD SCH (09:28)
[2020-04-02] MEDS: GUAIFENESIN 600 MG TABLET.SA PO SCH ×2 (09:33→21:27)
[2020-04-02] MEDS: MIDODRINE HCL 5 MG TABLET PO SCH ×3 (09:33→18:15)
[2020-04-02] MEDS: CARVEDILOL 6.25 MG TABLET PO SCH ×2 (09:34→21:27)
[2020-04-02] MEDS: DULOXETINE HCL 20 MG CAPSULE.DR PO SCH (09:35)
[2020-04-02] MEDS: SACUBITRIL/VALSARTAN 24 MG/26 MG TABLET PO SCH ×2 (09:35→21:27)
--- NOTE | 2020-04-02 17:29 | PDOC PROGRESS REPORT ---
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 Patient was seen on morning rounds. He is found resting in bed, comfortably, on supplemental oxygen via NC. He is A&Ox4, though intermittently forgetful and mildly confused. Continues to complain of fatigue. No other complaints. Otherwise, he denies all complaints; specifically no fever, chills, chest pain, palpitations, dyspnea, cough, abdominal pain, nausea and vomiting. He has no questions or concerns at this time. No concerns per nursing. Reason For Visit: MARTHA,DEHYDRATION,FTT Physical Exam Vital Signs: Temp Pulse Resp BP Pulse Ox 98.6 F 80 16 100/55 L 98 04/02/20 15:58 04/02/20 15:58 04/02/20 15:58 04/02/20 15:58 04/02/20 15:58 Intake & Output 04/01/20 04/02/20 04/03/20 06:59 06:59 06:59 Intake Total 1150 1020 476 Output Total 100 750 50 Balance 1050 270 426 Weight 55.1 kg 55.1 kg General appearance: PRESENT: no acute distress, cooperative, thin, well- developed, well-nourished, other - Frail, chronically ill-appearing Head exam: PRESENT: atraumatic, normocephalic Eye exam: PRESENT: conjunctiva pink, EOMI, PERRLA. ABSENT: scleral icterus Mouth exam: PRESENT: moist, tongue midline Respiratory exam: PRESENT: clear to auscultation khushboo, prolonged expiratory phas, symmetrical, unlabored, other - supplemental oxygen at 2lpm. ABSENT: rales, r honchi, wheezes Cardiovascular exam: PRESENT: RRR. ABSENT: diastolic murmur, rubs, systolic murmur Pulses: PRESENT: normal dorsalis pedis pul Vascular exam: PRESENT: normal capillary refill Extremities exam: PRESENT: full ROM. ABSENT: calf tenderness, clubbing, pedal edema Neurological exam: PRESENT: alert, awake, oriented to person, oriented to place, oriented to time, oriented to situation, CN II-XII grossly intact, other - Intermittent, mild forgetfullness/confusion. ABSENT: motor sensory deficit Psychiatric exam: PRESENT: appropriate affect, normal mood. ABSENT: homicidal ideation, suicidal ideation Skin exam: PRESENT: dry, intact, warm. ABSENT: cyanosis, rash Results Laboratory Results: 04/01/20 07:37 03/31/20 06:38 03/24/20 03/24/20 03/26/20 14:12 14:12 06:09 Creatine Kinase 59 Troponin I 0.124 NT-Pro-B Natriuret Pep [id number] H [id number] H 03/27/20 04:14 Creatine Kinase Troponin I NT-Pro-B Natriuret Pep [id number] H Impressions: Chest X-Ray 03/24/20 12:23 IMPRESSION: 1. New cardiomegaly. 2. Persistent right basilar infiltrate slightly improved from prior study. Renal Ultrasound 03/26/20 00:00 IMPRESSION: Unchanged bilateral renal cortical cysts and left renal atrophy. No hydronephrosis. Assessment and Plan - Diagnosis (1) NYHA class 4 heart failure with reduced ejection fraction Is this a current diagnosis for this admission?: Yes Plan: Dr. Castaneda is consulted. Medications per his expertise. Patient currently on midodrine, carvedilol, Entresto. Encourage p.o. fluids. Cardiac diet. Daily weights, strict I&O's. (2) Pancytopenia Is this a current diagnosis for this admission?: Yes Plan: Improved; WBCs, hemoglobin, and platelets now gradually trending up. No evidence of active bleeding at this time. Anemia panel unremarkable Hematology was consulted; as pancytopenia is related to CHF and cirrhosis, and now improving, they have signed off. Outpatient PCP follow-up. (3) Physical deconditioning Is this a current diagnosis for this admission?: Yes Plan: PT/OT consulted. Patient interested in SNF placement. Discharge planning consulted. (4) Tobacco dependence Is this a current diagnosis for this admission?: Yes Plan: Smoking cessation encouraged. Nicotine replacement therapies provided. (5) Protein-energy malnutrition Qualifiers: Protein-calorie malnutrition severity: moderate Qualified Code(s): E44.0 - Moderate protein-calorie malnutrition Is this a current diagnosis for this admission?: Yes Plan: BMI 20.2 Patient is consuming 25-75 % of his meals. He also has a high energy expenditure related to his CHF. Agree with Dr. Brizuela's assessment of malnourishment. Registered dietitian is consulted. (6) Dehydration Is this a current diagnosis for this admission?: Yes Plan: Resolved. His p.o. intake has improved. 1 L normal saline yesterday Encourage p.o. fluids. Daily weights, strict I&O's. (7) Acute kidney injury Is this a current diagnosis for this admission?: Yes Plan: Acute on chronic kidney injury has now resolved. Creatinine and BUN at baseline. CR 1.89-> 1.79-> 1.74->1.81; down from 2.35 Secondary to dehydration. Continue to avoid nephrotoxic medications. Renally dose where appropriate. Monitor with periodic chemistries. (8) UTI (urinary tract infection) Qualifiers: Urinary tract infection type: acute cystitis Hematuria presence: without hematuria Qualified Code(s): N30.00 - Acute cystitis without hematuria Is this a current diagnosis for this admission?: Yes Plan: Ruled out. Urinalysis positive for blood and leuk esterase. Urine culture revealed normal jessica. Received ceftriaxone x2 doses. - Time Time Spent with patient: 15-24 minutes Medications reviewed and adjusted accordingly: Yes Anticipated Discharge Disposition: Intermediate Facility Anticipated Discharge Timeframe: when bed available
--- NOTE | 2020-04-02 20:24 | Progress Note ---
Provider Note Provider Note: CARDIOLOGY PROGRESS NOTE by Dr. Alicia Brizuela on 04/02/2020. Subjective: The patient states he feels better. But states today his appetite is slightly less. He is able to sit up in the chair for a longer period of time. He denies any chest pain discomfort. Is able to lie down flat he denies shortness of breath. There is no PND orthopnea. There is no arrhythmias seen on the monitor. There is no firing of his AICD. Midodrine is marginally raised his blood pressure and he is getting most of his anticardiomyopathy medication. In spite of the appetite being good, he appears to be listless and without any motivation, and states he feels very tired. Hence the patient appears depressed. We will start the patient on antidepressant. PHYSICAL EXAMINATION: The patient is a frail build, and appears to be chronically ill and malnourished. In no acute distress. Selected Entries 04/02/20 15:58 Temperature 98.6 F Temperature Oral Source Pulse Rate 80 Respiratory 16 Rate Blood Pressure 100/55 L Blood Pressure 70 Mean BP Location Left Arm BP Position Supine O2 Sat by Pulse 98 Oximetry Oxygen Flow 3.50 Rate Oxygen Delivery Nasal Cannula Method PHYSICAL EXAMINATION: The patient is chronically ill and malnourished. But in no acute distress. He is lying down flat in bed. HEAD: Is atraumatic normocephalic. EYES: Pupils are equal round regular reactive to light and accommodation. Extraocular movements are normal. There is no conjunctival pallor. There is no scleral icterus. EARS: Tympanic membranes are intact. External auditory canals are clear. NOSE: There is no deviated nasal septum. There is no inflammation of the nasal mucous membrane. MOUTH: Mucous membranes of mouth are just moist, tongue is moist. THROAT: There is no redness of the oropharynx. There is no exudates. 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 There is no catie-care ecchymosis. NECK: Supple. There is no JVD present. Carotids are equal there is no bruit. There is no lymphadenopathy. There is no goiter. There is no accessory muscle respiration use. Trachea central. LUNGS: Shows diminished air entry prolonged expiration . There is no rhonchi or rales or wheezing. There is no chest wall tenderness on palpation. On palpation there is hyperresonance. There is no bibasilar rales of heart failure. HEART: S1-S2 is heard. There is no S3 gallop. There is no S4 gallop there is systolic murmur left sternal border and the apex there is no rub. ABDOMEN: Soft. There is no hepatosplenomegaly. Bowel sounds are normal. There is no hepatosplenomegaly. EXTREMITIES: There is diminished bilateral femoral pulses with bruits. 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 He has bilateral femoral bruits present. Leg pulses are diminished. There is no pedal edema bilaterally. There is no DVT or cellulitis. There is no cyanosis or clubbing. ACTING TEACHER: The patient is asleep, but when aroused/awaken he is oriented x3 with no focal deficit Labs- All tests 24 hr 04/01/20 04/02/20 04/02/20 21:19 06:28 11:05 POC Glucose 108 97 126 H 04/02/20 15:59 POC Glucose 121 H Chest X-Ray 03/24/20 12:23 IMPRESSION: 1. New cardiomegaly. 2. Persistent right basilar infiltrate slightly improved from prior study. Renal Ultrasound 03/26/20 00:00 IMPRESSION: Unchanged bilateral renal cortical cysts and left renal atrophy. No hydronephrosis. IMPRESSION/RECOMMENDATION: 1. Severe dehydration, and UTI: These issues seems to have resolved. 2. Acute renal failure: Secondary to dehydration and also possibly decreased cardiac output secondary to decrease in optimal preload due to dehydration. Renal function is slowly improving. 3. Thrombocytopenia: Watch for overt bleeding. 4. History of severe GI bleed and anemia secondary to gastric ulcer. Watch out for recurrence of bleeding. 5. History of gastric ulcer with bleeding. Later would see if the patient can have a repeat endoscopy to see if the ulcer is healed. 6. Cardiomyopathy with severely reduced LV ejection fraction. In view of the patient's renal function status agree with holding the patient's Entresto for now. Restart later after hydration. We will start the patient on midodrine to get his blood pressure up. Will restart the patient's Coreg at 6.25 mg p.o. every 12 hours. We will start the patient on small dose of hydralazine 10 mg p.o. 3 times daily. I will increase midodrine to 10 mg p.o. 3 times daily. We will hold off on the Entresto for now due to his renal function. 7. Coronary artery disease: History of [place]: No anginal symptoms. 8. Severe pulmonary hypertension: Secondary to left heart failure and due to COPD. 9.COPD: No evidence of acute exacerbation. 10. History of hypertension: The patient in the recent past has been on midodrine. The patient's blood pressure stable at present. 11. Hypothyroidism: Continue replacement 12. AICD placement: No firing of his AICD. 13. Depression: Will increase the patient's Cymbalta to twice daily. 14. Chronic debility and deconditioning: We will have physical therapy ambulate the patient. Medications reviewed. New medications added. Medical regimen and management plan discussed with attending provider on the case. Medical decision making is of high complexity. 40 minutes spent on this patient more than 50% time spent direct patient care. Will follow.
[2020-04-03] MEDS: INSULIN LISPRO 100 UNIT/ML 3 ML VIAL SUBCUT SCH ×4 (08:14→21:36)
[2020-04-03] MEDS: IPRATROPIUM/ALBUTEROL 0.5-2.5 MG/3 ML AMPUL NEB SCH ×2 (08:37→19:53)
[2020-04-03] MEDS: NICOTINE 14 MG/24 HR PATCH.TD24 TD SCH (10:33)
[2020-04-03] MEDS: MIDODRINE HCL 5 MG TABLET PO SCH ×3 (10:33→17:23)
[2020-04-03] MEDS: CARVEDILOL 6.25 MG TABLET PO SCH ×2 (10:33→21:35)
[2020-04-03] MEDS: GUAIFENESIN 600 MG TABLET.SA PO SCH ×2 (10:33→21:35)
[2020-04-03] MEDS: SACUBITRIL/VALSARTAN 24 MG/26 MG TABLET PO SCH ×2 (10:40→21:35)
--- NOTE | 2020-04-03 16:15 | PDOC PROGRESS REPORT ---
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 Patient was seen on morning rounds. He is found resting in bed, comfortably, on supplemental oxygen via NC. He is A&Ox4, though intermittently forgetful and mildly confused. Feels well today; no complaints. He denies fever, chills, chest pain, palpitations, dyspnea, cough, abdominal pain, nausea and vomiting. He has no questions or concerns at this time. No concerns per nursing. Reason For Visit: MARTHA,DEHYDRATION,FTT Physical Exam Vital Signs: Temp Pulse Resp BP Pulse Ox 98.4 F 80 25 H 102/61 95 04/03/20 11:10 04/03/20 14:00 04/03/20 11:10 04/03/20 11:10 04/03/20 11:10 Intake & Output 04/02/20 04/03/20 04/04/20 06:59 06:59 06:59 Intake Total 1020 941 360 Output Total 750 250 200 Balance 270 691 160 Weight 55.1 kg 55.8 kg General appearance: PRESENT: no acute distress, cooperative, thin, well- developed Head exam: PRESENT: atraumatic, normocephalic Eye exam: PRESENT: conjunctiva pink, EOMI, PERRLA. ABSENT: scleral icterus Mouth exam: PRESENT: moist, tongue midline Respiratory exam: PRESENT: clear to auscultation khushboo, symmetrical, unlabored, other - supplemental oxygen. ABSENT: rales, rhonchi, wheezes Cardiovascular exam: PRESENT: RRR, +S1, +S2. ABSENT: diastolic murmur, rubs, systolic murmur Vascular exam: PRESENT: normal capillary refill Extremities exam: PRESENT: full ROM. ABSENT: calf tenderness, clubbing, pedal edema Neurological exam: PRESENT: alert, awake, oriented to person, oriented to place, oriented to time, oriented to situation, CN II-XII grossly intact, other - Intermittent, mild forgetfullness/confusion. ABSENT: motor sensory deficit Psychiatric exam: PRESENT: appropriate affect, normal mood. ABSENT: homicidal ideation, suicidal ideation Skin exam: PRESENT: dry, intact, warm. ABSENT: cyanosis, rash Results Laboratory Results: 04/01/20 07:37 03/31/20 06:38 03/24/20 03/24/20 03/26/20 14:12 14:12 06:09 Creatine Kinase 59 Troponin I 0.124 NT-Pro-B Natriuret Pep [id number] H [id number] H 03/27/20 04:14 Creatine Kinase Troponin I NT-Pro-B Natriuret Pep [id number] H Impressions: Chest X-Ray 03/24/20 12:23 IMPRESSION: 1. New cardiomegaly. 2. Persistent right basilar infiltrate slightly improved from prior study. Renal Ultrasound 03/26/20 00:00 IMPRESSION: Unchanged bilateral renal cortical cysts and left renal atrophy. No hydronephrosis. Assessment and Plan - Diagnosis (1) NYHA class 4 heart failure with reduced ejection fraction Is this a current diagnosis for this admission?: Yes Plan: Dr. Castaneda is consulted. Medications per his expertise. Patient currently on midodrine, carvedilol, Entresto. Encourage p.o. fluids. Cardiac diet. Daily weights, strict I&O's. (2) Pancytopenia Is this a current diagnosis for this admission?: Yes Plan: Improved; WBCs, hemoglobin, and platelets now gradually trending up. No evidence of active bleeding at this time. Anemia panel unremarkable Hematology was consulted; as pancytopenia is related to CHF and cirrhosis, and now improving, they have signed off. Outpatient PCP follow-up. (3) Physical deconditioning Is this a current diagnosis for this admission?: Yes Plan: PT/OT consulted. Patient interested in SNF placement. Discharge planning consulted. (4) Tobacco dependence Is this a current diagnosis for this admission?: Yes Plan: Smoking cessation encouraged. Nicotine replacement therapies provided. (5) Protein-energy malnutrition Qualifiers: Protein-calorie malnutrition severity: moderate Qualified Code(s): E44.0 - Moderate protein-calorie malnutrition Is this a current diagnosis for this admission?: Yes Plan: BMI 20.2 Patient is consuming 25-75 % of his meals. He also has a high energy expenditure related to his CHF. Agree with Dr. Brizuela's assessment of malnourishment. Registered dietitian is consulted. (6) Dehydration Is this a current diagnosis for this admission?: Yes Plan: Resolved. His p.o. intake has improved. 1 L normal saline yesterday Encourage p.o. fluids. Daily weights, strict I&O's. (7) Acute kidney injury Is this a current diagnosis for this admission?: Yes Plan: Acute on chronic kidney injury has now resolved. Creatinine and BUN at baseline. CR 1.89-> 1.79-> 1.74->1.81; down from 2.35 Secondary to dehydration. Continue to avoid nephrotoxic medications. Renally dose where appropriate. Monitor with periodic chemistries. (8) UTI (urinary tract infection) Qualifiers: Urinary tract infection type: acute cystitis Hematuria presence: without hematuria Qualified Code(s): N30.00 - Acute cystitis without hematuria Is this a current diagnosis for this admission?: Yes Plan: Ruled out. Urinalysis positive for blood and leuk esterase. Urine culture revealed normal jessica. Received ceftriaxone x2 doses. - Time Time Spent with patient: 15-24 minutes Medications reviewed and adjusted accordingly: Yes Anticipated Discharge Disposition: Senior Living Facility Anticipated Discharge Timeframe: when bed available
[2020-04-03] MEDS: ONDANSETRON HCL INJ/PF 4 MG/2 ML SDV IV PRN (17:00)
[2020-04-03] MEDS: ACETAMINOPHEN 325 MG TABLET PO PRN (20:32)
--- NOTE | 2020-04-03 20:39 | Progress Note ---
Provider Note Provider Note: CARDIOLOGY PROGRESS NOTE by Dr. Alicia Brizuela on 04/03/2020. OBJECTIVE: The patient states he feels tired but he appears to be stronger and his voice is loud. He is eating about 50% to 75% of his diet. He appears to be less depressed. There is no chest pain or discomfort. There is no shortness of breath. There is no PND orthopnea or leg edema. There is no firing of his AICD. He has no anginal symptoms. He denies any shortness of breath. There is no atrioventricular arrhythmias seen on the monitor. PHYSICAL EXAMINATION: PHYSICAL EXAMINATION: The patient is chronically ill and malnourished. But in no acute distress. He is lying down flat in bed. Selected Entries 04/03/20 11:10 Temperature 98.4 F Temperature Oral Source Pulse Rate 80 Respiratory 25 H Rate Blood Pressure 102/61 Blood Pressure 74 Mean BP Location Left Arm BP Position Supine O2 Sat by Pulse 95 Oximetry Oxygen Flow 3.50 Rate Oxygen Delivery Nasal Cannula Method HEAD: Is atraumatic normocephalic. EYES: Pupils are equal round regular reactive to light and accommodation. Extraocular movements are normal. There is no conjunctival pallor. There is no scleral icterus. EARS: Tympanic membranes are intact. External auditory canals are clear. NOSE: There is no deviated nasal septum. There is no inflammation of the nasal mucous membrane. MOUTH: Mucous membranes of mouth are just moist, tongue is moist. THROAT: There is no redness of the oropharynx. There is no exudates. 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 There is no catie-care ecchymosis. NECK: Supple. There is no JVD present. Carotids are equal there is no bruit. There is no lymphadenopathy. There is no goiter. There is no accessory muscle respiration use. Trachea central. LUNGS: Shows diminished air entry prolonged expiration . There is no rhonchi or rales or wheezing. There is no chest wall tenderness on palpation. On palpation there is hyperresonance. There is no bibasilar rales of heart failure. HEART: S1-S2 is heard. There is no S3 gallop. There is no S4 gallop there is systolic murmur left sternal border and the apex there is no rub. ABDOMEN: Soft. There is no hepatosplenomegaly. Bowel sounds are normal. There is no hepatosplenomegaly. EXTREMITIES: There is diminished bilateral femoral pulses with bruits. 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 He has bilateral femoral bruits present. Leg pulses are diminished. There is no pedal edema bilaterally. There is no DVT or cellulitis. There is no cyanosis or clubbing. PUNCH BOX TENDER: The patient is asleep, but when aroused/awaken he is oriented x3 with no focal deficit. IMPRESSION/RECOMMENDATION: 1. Severe dehydration, and UTI: These issues seems to have resolved. 2. Acute renal failure: Secondary to dehydration and also possibly decreased cardiac output secondary to decrease in optimal preload due to dehydration. Renal function is slowly improving. 3. Thrombocytopenia: Watch for overt bleeding. 4. History of severe GI bleed and anemia secondary to gastric ulcer. Watch out for recurrence of bleeding. 5. History of gastric ulcer with bleeding. Later would see if the patient can have a repeat endoscopy to see if the ulcer is healed. 6. Cardiomyopathy with severely reduced LV ejection fraction. In view of the patient's renal function status agree with holding the patient's Entresto for now. Restart later after hydration. We will start the patient on midodrine to get his blood pressure up. Will restart the patient's Coreg at 6.25 mg p.o. every 12 hours. We will start the patient on small dose of hydralazine 10 mg p.o. 3 times daily. I will increase midodrine to 10 mg p.o. 3 times daily. We will hold off on the Entresto for now due to his renal function. 7. Coronary artery disease: History of [place]: No anginal symptoms. 8. Severe pulmonary hypertension: Secondary to left heart failure and due to COPD. 9.COPD: No evidence of acute exacerbation. 10. History of hypertension: The patient in the recent past has been on midodrine. The patient's blood pressure stable at present. 11. Hypothyroidism: Continue replacement 12. AICD placement: No firing of his AICD. 13. Depression: Will increase the patient's Cymbalta to twice daily. 14. Chronic debility and deconditioning: We will have physical therapy ambulate the patient. 15. Protein calorie malnutrition: Agree with dietary consult. Medications reviewed. The patient's cardiac status is stable as can be. Medical decision making is of moderate complexity. Encouragement of the jaswant gement plan discussed with attending provider on the case. 40 minutes spent on patient more than 50% of time spent in direct patient care. Would make arrangements to transfer the patient to senior living facility. Will follow.
[2020-04-03] MEDS: DULOXETINE HCL 20 MG CAPSULE.DR PO SCH (21:35)
[2020-04-04] MEDS: INSULIN LISPRO 100 UNIT/ML 3 ML VIAL SUBCUT SCH ×3 (08:13→17:18)
[2020-04-04] MEDS: IPRATROPIUM/ALBUTEROL 0.5-2.5 MG/3 ML AMPUL NEB SCH ×2 (08:36→20:42)
[2020-04-04] MEDS: DULOXETINE HCL 20 MG CAPSULE.DR PO SCH ×2 (10:19→21:42)
[2020-04-04] MEDS: CARVEDILOL 6.25 MG TABLET PO SCH ×2 (10:19→21:42)
[2020-04-04] MEDS: MIDODRINE HCL 5 MG TABLET PO SCH ×3 (10:19→18:21)
[2020-04-04] MEDS: GUAIFENESIN 600 MG TABLET.SA PO SCH ×2 (10:19→21:42)
[2020-04-04] MEDS: NICOTINE 14 MG/24 HR PATCH.TD24 TD SCH (10:20)
[2020-04-04] MEDS: SACUBITRIL/VALSARTAN 24 MG/26 MG TABLET PO SCH ×2 (10:20→21:42)
[2020-04-04] MEDS: PREDNISONE 20 MG TABLET PO SCH (12:15)
--- NOTE | 2020-04-04 19:38 | PDOC PROGRESS REPORT ---
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 Patient was seen on morning rounds. He is found resting in bed, comfortably, on supplemental oxygen via NC. He is A&Ox4, though intermittently forgetful and mildly confused. Feels well today; no complaints. He denies fever, chills, chest pain, palpitations, dyspnea, cough, abdominal pain, nausea and vomiting. He has no questions or concerns at this time. No concerns per nursing. Reason For Visit: MARTHA,DEHYDRATION,FTT Physical Exam Vital Signs: Temp Pulse Resp BP Pulse Ox 98.1 F 87 24 H 105/65 92 04/04/20 17:15 04/04/20 17:15 04/04/20 17:15 04/04/20 17:15 04/04/20 17:15 Intake & Output 04/03/20 04/04/20 04/05/20 06:59 06:59 06:59 Intake Total 941 845 740 Output Total 250 475 500 Balance 691 370 240 Weight 55.8 kg 55.6 kg General appearance: PRESENT: no acute distress, cooperative, thin, well- developed Head exam: PRESENT: atraumatic, normocephalic Eye exam: PRESENT: conjunctiva pink, EOMI, PERRLA. ABSENT: scleral icterus Respiratory exam: PRESENT: clear to auscultation khushboo, symmetrical, unlabored, other - Supplemental oxygen by nasal cannula. ABSENT: rales, rhonchi, wheezes Cardiovascular exam: PRESENT: RRR. ABSENT: diastolic murmur, rubs, systolic murmur GI/Abdominal exam: PRESENT: normal bowel sounds, soft. ABSENT: distended, guarding, mass, organolmegaly, rebound, tenderness Gentrourinary exam: PRESENT: indwelling catheter Neurological exam: PRESENT: alert, awake, oriented to person, oriented to place, oriented to time, oriented to situation, CN II-XII grossly intact, other - Mild, intermittent, confusion/forgetfulness; overall improved.. ABSENT: motor sensory deficit Psychiatric exam: PRESENT: appropriate affect, normal mood. ABSENT: homicidal ideation, suicidal ideation Skin exam: PRESENT: dry, intact, warm. ABSENT: cyanosis, rash Results Laboratory Results: 04/01/20 07:37 03/31/20 06:38 03/24/20 03/24/20 03/26/20 14:12 14:12 06:09 Creatine Kinase 59 Troponin I 0.124 NT-Pro-B Natriuret Pep [id number] H [id number] H 03/27/20 04:14 Creatine Kinase Troponin I NT-Pro-B Natriuret Pep [id number] H Impressions: Chest X-Ray 03/24/20 12:23 IMPRESSION: 1. New cardiomegaly. 2. Persistent right basilar infiltrate slightly improved from prior study. Renal Ultrasound 03/26/20 00:00 IMPRESSION: Unchanged bilateral renal cortical cysts and left renal atrophy. No hydronephrosis. Assessment and Plan - Diagnosis (1) NYHA class 4 heart failure with reduced ejection fraction Is this a current diagnosis for this admission?: Yes Plan: Dr. Castaneda is consulted. Medications per his expertise. Patient currently on midodrine, carvedilol, Entresto. Encourage p.o. fluids. Cardiac diet. Daily weights, strict I&O's. (2) Pancytopenia Is this a current diagnosis for this admission?: Yes Plan: Improved; WBCs, hemoglobin, and platelets now gradually trending up. No evidence of active bleeding at this time. Anemia panel unremarkable Hematology was consulted; as pancytopenia is related to CHF and cirrhosis, and now improving, they have signed off. Outpatient PCP follow-up. (3) Physical deconditioning Is this a current diagnosis for this admission?: Yes Plan: PT/OT consulted. Patient interested in SNF placement. Discharge planning consulted. (4) Tobacco dependence Is this a current diagnosis for this admission?: Yes Plan: Smoking cessation encouraged. Nicotine replacement therapies provided. (5) Protein-energy malnutrition Qualifiers: Protein-calorie malnutrition severity: moderate Qualified Code(s): E44.0 - Moderate protein-calorie malnutrition Is this a current diagnosis for this admission?: Yes Plan: BMI 20.2 Patient is consuming 25-75 % of his meals. He also has a high energy expenditure related to his CHF. Agree with Dr. Brizuela's assessment of malnourishment. Registered dietitian is consulted. (6) Dehydration Is this a current diagnosis for this admission?: Yes Plan: Resolved. His p.o. intake has improved. 1 L normal saline yesterday Encourage p.o. fluids. Daily weights, strict I&O's. (7) Acute kidney injury Is this a current diagnosis for this admission?: Yes Plan: Acute on chronic kidney injury has now resolved. Creatinine and BUN at baseline. CR 1.89-> 1.79-> 1.74->1.81; down from 2.35 Secondary to dehydration. Continue to avoid nephrotoxic medications. Renally dose where appropriate. Monitor with periodic chemistries. (8) UTI (urinary tract infection) Qualifiers: Urinary tract infection type: acute cystitis Hematuria presence: without hematuria Qualified Code(s): N30.00 - Acute cystitis without hematuria Is this a current diagnosis for this admission?: Yes Plan: Ruled out. Urinalysis positive for blood and leuk esterase. Urine culture revealed normal jessica. Received ceftriaxone x2 doses. - Time Time Spent with patient: 15-24 minutes Medications reviewed and adjusted accordingly: Yes Anticipated Discharge Disposition: Group Home Facility Anticipated Discharge Timeframe: when bed available
[2020-04-04] MEDS: ACETAMINOPHEN 325 MG TABLET PO PRN (19:46)
--- NOTE | 2020-04-04 20:19 | Progress Note ---
Provider Note Provider Note: CARDIOLOGY PROGRESS NOTE by Dr. Alicia Brizuela on 04/04/2020. SUBJECTIVE: The patient states he feels tired but he appears to be stronger and his voice is loud. He is eating about 50% to 75% of his diet. He appears to be less depressed. There is no chest pain or discomfort. There is no PND orth opnea or leg edema. There is no firing of his AICD. He has no anginal symptoms. He denies any shortness of breath. There is no atrioventricular arrhythmias seen on the monitor. He is sat in the chair for about [address] back to the bed he was found to be wheezing and hence is being started on steroids. At present he denies any shortness of breath. PHYSICAL EXAMINATION: The patient is chronically ill and malnourished. But in no acute distress. He is lying down flat in bed. Selected Entries 04/04/20 04/04/20 13:50 17:15 Temperature 98.2 F Temperature Oral Source Pulse Rate 86 Respiratory 18 Rate Blood Pressure 104/55 L Blood Pressure 71 Mean BP Location Left Arm BP Position Supine O2 Sat by Pulse 92 Oximetry Oxygen Flow 3.50 Rate Oxygen Delivery Nasal Cannula Method HEAD: Is atraumatic normocephalic. EYES: Pupils are equal round regular reactive to light and accommodation. Extraocular movements are normal. There is no conjunctival pallor. There is no scleral icterus. EARS: Tympanic membranes are intact. External auditory canals are clear. NOSE: There is no deviated nasal septum. There is no inflammation of the nasal mucous membrane. MOUTH: Mucous membranes of mouth are just moist, tongue is moist. THROAT: There is no redness of the oropharynx. There is no exudates. 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 There is no catie-care ecchymosis. NECK: Supple. There is no JVD present. Carotids are equal there is no bruit. There is no lymphadenopathy. There is no goiter. There is no accessory muscle respiration use. Trachea central. LUNGS: Shows diminished air entry prolonged expiration . There is no rhonchi or rales or wheezing. There is no chest wall tenderness on palpation. On palpation there is hyperresonance. There is no bibasilar rales of heart failure. HEART: S1-S2 is heard. There is no S3 gallop. There is no S4 gallop there is systolic murmur left sternal border and the apex there is no rub. ABDOMEN: Soft. There is no hepatosplenomegaly. Bowel sounds are normal. There is no hepatosplenomegaly. EXTREMITIES: There is diminished bilateral femoral pulses with bruits. 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 He has bilateral femoral bruits present. Leg pulses are diminished. There is no pedal edema bilaterally. There is no DVT or cellulitis. There is no cyanosis or clubbing. CALL OR CONTACT CENTRE MANAGER: The patient is asleep, but when aroused/awaken he is oriented x3 with no focal deficit. Labs- All tests 24 hr 04/03/20 04/04/20 04/04/20 21:31 06:26 12:22 POC Glucose 168 H 123 H 100 04/04/20 17:18 POC Glucose 178 H Chest X-Ray 03/24/20 12:23 IMPRESSION: 1. New cardiomegaly. 2. Persistent right basilar infiltrate slightly improved from prior study. Renal Ultrasound 03/26/20 00:00 IMPRESSION: Unchanged bilateral renal cortical cysts and left renal atrophy. No hydronephrosis. IMPRESSION/RECOMMENDATION: 1. Severe dehydration, and UTI: These issues seems to have resolved. 2. Acute renal failure: Secondary to dehydration and also possibly decreased cardiac output secondary to decrease in optimal preload due to dehydration. Renal function is slowly improving. 3. Thrombocytopenia: Watch for overt bleeding. 4. History of severe GI bleed and anemia secondary to gastric ulcer. Watch out for recurrence of bleeding. 5. History of gastric ulcer with bleeding. Later would see if the patient can have a repeat endoscopy to see if the ulcer is healed. 6. Cardiomyopathy with severely reduced LV ejection fraction. In view of the patient's renal function status agree with holding the patient's Entresto for now. Restart later after hydration. We will start the patient on midodrine to get his blood pressure up. Will restart the patient's Coreg at 6.25 mg p.o. every 12 hours. We will start the patient on small dose of hydralazine 10 mg p.o. 3 times daily. I will increase midodrine to 10 mg p.o. 3 times daily. We will hold off on the Entresto for now due to his renal function. 7. Coronary artery disease: History of [place]: No anginal symptoms. 8. Severe pulmonary hypertension: Secondary to left heart failure and due to COPD. 9.COPD: No evidence of acute exacerbation. Patient has been started on steroids due to an episode of wheezing.. At present the lungs appear clear. 10. History of hypertension: The patient in the recent past has been on midodrine. The patient's blood pressure stable at present. 11. Hypothyroidism: Continue replacement 12. AICD placement: No firing of his AICD. 13. Depression: Will increase the patient's Cymbalta to twice daily. 14. Chronic debility and deconditioning: We will have physical therapy ambulate the patient. 15. Protein calorie malnutrition: Agree with dietary consult. Medications reviewed. Medical regimen and management plan discussed with attending provider on the case. Medical decision making is of moderate comp lexity. 40 minutes spent as patient more than 50% time spent in direct patient care. [facility]rangements are being made [facility] Will follow.
[2020-04-05] MEDS: INSULIN LISPRO 100 UNIT/ML 3 ML VIAL SUBCUT SCH ×5 (03:03→21:59)
[2020-04-05 06:37] LABS: HEMATOCRIT 26.6 % (37.9-51.0); HEMOGLOBIN 9.4 g/dL (13.5-17.0); MEAN CORPUSCULAR HEMOGLOBIN 36.8 pg (27.0-33.4); MEAN CORPUSCULAR HGB CONC 35.2 g/dL (32.0-36.0); MEAN CORPUSCULAR VOLUME 105 fl (80-97); RED BLOOD COUNT 2.55 10^6/uL (4.35-5.55); RED CELL DISTRIBUTION WIDTH 23.3 % (11.5-14.0); WHITE BLOOD COUNT 3.2 10^3/uL (4.0-10.5)
[2020-04-05 07:03] LABS: ANION GAP 7 (5-19); BLOOD UREA NITROGEN 64 mg/dL (7-20); CALCIUM 9.3 mg/dL (8.4-10.2); CARBON DIOXIDE 24 mmol/L (22-30); CHLORIDE 106 mmol/L (98-107); GLUCOSE 158 mg/dL (75-110); POTASSIUM 5.2 mmol/L (3.6-5.0)
[2020-04-05 07:08] LABS: PLATELET COUNT 54 10^3/uL (150-450)
--- NOTE | 2020-04-05 07:53 | PDOC PROGRESS REPORT ---
Subjective Date:: 04/05/20 Subjective:: No acute events overnigth Reason For Visit: MARTHA,DEHYDRATION,FTT Physical Exam Vital Signs: Temp Pulse Resp BP Pulse Ox 97.5 F 88 17 125/76 93 04/05/20 06:00 04/05/20 06:00 04/05/20 06:00 04/05/20 06:00 04/05/20 06:00 Intake & Output 04/04/20 04/05/20 04/06/20 06:59 06:59 06:59 Intake Total 845 1360 Output Total 475 900 Balance 370 460 Weight 55.6 kg 56.3 kg General appearance: PRESENT: no acute distress, well-developed, well-nourished Head exam: PRESENT: atraumatic, normocephalic Eye exam: PRESENT: conjunctiva pink, EOMI, PERRLA. ABSENT: scleral icterus Ear exam: PRESENT: normal external ear exam Mouth exam: PRESENT: moist, tongue midline Neck exam: ABSENT: carotid bruit, JVD, lymphadenopathy, thyromegaly Respiratory exam: PRESENT: clear to auscultation khushboo. ABSENT: rales, rhonchi, wheezes Cardiovascular exam: PRESENT: RRR. ABSENT: diastolic murmur, rubs, systolic murmur Pulses: PRESENT: normal dorsalis pedis pul Vascular exam: PRESENT: normal capillary refill GI/Abdominal exam: PRESENT: normal bowel sounds, soft. ABSENT: distended, guarding, mass, organolmegaly, rebound, tenderness Rectal exam: PRESENT: deferred Extremities exam: PRESENT: full ROM. ABSENT: calf tenderness, clubbing, pedal edema Neurological exam: PRESENT: alert, awake, oriented to person, oriented to place, oriented to time, oriented to situation, CN II-XII grossly intact. ABSENT: motor sensory deficit Psychiatric exam: PRESENT: appropriate affect, normal mood. ABSENT: homicidal ideation, suicidal ideation Skin exam: PRESENT: dry, intact, warm. ABSENT: cyanosis, rash Results Laboratory Results: 04/05/20 06:04 04/05/20 06:04 04/05/20 04/05/20 06:04 06:04 WBC 3.2 L RBC 2.55 L Hgb 9.4 L Hct 26.6 L MCV 105 H MCH 36.8 H MCHC 35.2 RDW 23.3 H Plt Count 54 L Sodium 136.7 L Potassium 5.2 H Chloride 106 Carbon Dioxide 24 Anion Gap 7 BUN 64 H Creatinine 1.47 H Est GFR ( Amer) 58 L Glucose 158 H Calcium 9.3 03/24/20 03/24/20 03/26/20 14:12 14:12 06:09 Creatine Kinase 59 Troponin I 0.124 NT-Pro-B Natriuret Pep [id number] H [id number] H 03/27/20 04:14 Creatine Kinase Troponin I NT-Pro-B Natriuret Pep [id number] H Impressions: Chest X-Ray 03/24/20 12:23 IMPRESSION: 1. New cardiomegaly. 2. Persistent right basilar infiltrate slightly improved from prior study. Renal Ultrasound 03/26/20 00:00 IMPRESSION: Unchanged bilateral renal cortical cysts and left renal atrophy. No hydronephrosis. Assessment & Plan - Diagnosis (1) Pancytopenia Is this a current diagnosis for this admission?: Yes Plan: Counts are stable, reviewed chart also. I have seen pt multiple times in past. He has pancytopenia 2nd cardiac cirrhosis. No further w/u needed. Transfuse if plt ct <10 or actively bleeding. Give PRBC if hb <7 or hemodynamically unstable. He may go in and out of [facility] depending on how his other medical conditions are going. Will follow peripherally. - Time Time Spent with patient: 15-24 minutes
[2020-04-05] MEDS: IPRATROPIUM/ALBUTEROL 0.5-2.5 MG/3 ML AMPUL NEB SCH ×2 (09:11→20:29)
[2020-04-05] MEDS: SACUBITRIL/VALSARTAN 24 MG/26 MG TABLET PO SCH ×2 (09:46→21:59)
[2020-04-05] MEDS: DULOXETINE HCL 20 MG CAPSULE.DR PO SCH ×2 (09:46→21:59)
[2020-04-05] MEDS: MIDODRINE HCL 5 MG TABLET PO SCH ×3 (09:46→17:10)
[2020-04-05] MEDS: NICOTINE 14 MG/24 HR PATCH.TD24 TD SCH (09:47)
[2020-04-05] MEDS: GUAIFENESIN 600 MG TABLET.SA PO SCH ×2 (09:47→21:59)
[2020-04-05] MEDS: PREDNISONE 20 MG TABLET PO SCH (09:47)
[2020-04-05] MEDS: CARVEDILOL 6.25 MG TABLET PO SCH ×2 (09:51→21:59)
--- NOTE | 2020-04-05 17:00 | PDOC PROGRESS REPORT ---
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 04/05/2020. No acute events overnight. Saw patient this morning, enjoying his breakfast, stating that he could not get much sleep as he was anxious last night, denies any fever, chills, nausea, vomiting, chest pain. Reason For Visit: MARTHA,DEHYDRATION,FTT Physical Exam Vital Signs: Temp Pulse Resp BP Pulse Ox 97.8 F 96 18 151/86 H 94 04/05/20 11:09 04/05/20 11:09 04/05/20 11:09 04/05/20 11:09 04/05/20 11:09 Intake & Output 04/04/20 04/05/20 04/06/20 06:59 06:59 06:59 Intake Total 845 1660 356 Output Total 475 1025 Balance 370 635 356 Weight 55.6 kg 56.3 kg General appearance: PRESENT: no acute distress, thin Head exam: PRESENT: atraumatic, normocephalic Neck exam: ABSENT: carotid bruit, JVD, lymphadenopathy, thyromegaly Respiratory exam: PRESENT: clear to auscultation khushboo. ABSENT: rales, rhonchi, wheezes Cardiovascular exam: PRESENT: RRR. ABSENT: diastolic murmur, rubs, systolic murmur GI/Abdominal exam: PRESENT: normal bowel sounds, soft. ABSENT: distended, guarding, mass, organolmegaly, rebound, tenderness Neurological exam: PRESENT: alert, awake, oriented to person, oriented to place, oriented to time, oriented to situation, CN II-XII grossly intact. ABSENT: motor sensory deficit Results Laboratory Results: 04/05/20 06:04 04/05/20 06:04 04/05/20 04/05/20 06:04 06:04 WBC 3.2 L RBC 2.55 L Hgb 9.4 L Hct 26.6 L MCV 105 H MCH 36.8 H MCHC 35.2 RDW 23.3 H Plt Count 54 L Sodium 136.7 L Potassium 5.2 H Chloride 106 Carbon Dioxide 24 Anion Gap 7 BUN 64 H Creatinine 1.47 H Est GFR ( Amer) 58 L Glucose 158 H Calcium 9.3 03/24/20 03/24/20 03/26/20 14:12 14:12 06:09 Creatine Kinase 59 Troponin I 0.124 NT-Pro-B Natriuret Pep [id number] H [id number] H 03/27/20 04:14 Creatine Kinase Troponin I NT-Pro-B Natriuret Pep [id number] H Impressions: Chest X-Ray 03/24/20 12:23 IMPRESSION: 1. New cardiomegaly. 2. Persistent right basilar infiltrate slightly improved from prior study. Renal Ultrasound 03/26/20 00:00 IMPRESSION: Unchanged bilateral renal cortical cysts and left renal atrophy. No hydronephrosis. Assessment and Plan - Diagnosis (1) NYHA class 4 heart failure with reduced ejection fraction Is this a current diagnosis for this admission?: Yes Plan: Dr. Castaneda is consulted. Medications per his expertise. Patient currently on midodrine, carvedilol, Entresto. Encourage p.o. fluids. Cardiac diet. Daily weights, strict I&O's. (2) Acute kidney injury Is this a current diagnosis for this admission?: Yes Plan: Acute on chronic kidney injury has now resolved. Creatinine and BUN at baseline. CR 1.89-> 1.79-> 1.74->1.81; down from 2.35 Secondary to dehydration. Continue to avoid nephrotoxic medications. Renally dose where appropriate. Monitor with periodic chemistries. (3) Dehydration Is this a current diagnosis for this admission?: Yes Plan: Resolved. His p.o. intake has improved. 1 L normal saline yesterday Encourage p.o. fluids. Daily weights, strict I&O's. (4) Pancytopenia Is this a current diagnosis for this admission?: Yes Plan: Improved; WBCs, hemoglobin, and platelets now gradually trending up. No evidence of active bleeding at this time. Anemia panel unremarkable Hematology was consulted; as pancytopenia is related to CHF and cirrhosis, and now improving, they have signed off. Outpatient PCP follow-up. (5) Physical deconditioning Is this a current diagnosis for this admission?: Yes Plan: PT/OT consulted. Patient interested in SNF placement. Discharge planning consulted. (6) Protein-energy malnutrition Qualifiers: Protein-calorie malnutrition severity: moderate Qualified Code(s): E44.0 - Moderate protein-calorie malnutrition Is this a current diagnosis for this admission?: Yes Plan: BMI 20.2 Patient is consuming 25-75 % of his meals. He also has a high energy expenditure related to his CHF. Agree with Dr. Brizuela's assessment of malnourishment. Registered dietitian is consulted. (7) Tobacco dependence Is this a current diagnosis for this admission?: Yes Plan: Smoking cessation encouraged. Nicotine replacement therapies provided. (8) UTI (urinary tract infection) Qualifiers: Urinary tract infection type: acute cystitis Hematuria presence: without hematuria Qualified Code(s): N30.00 - Acute cystitis without hematuria Is this a current diagnosis for this admission?: Yes Plan: Ruled out. Urinalysis positive for blood and leuk esterase. Urine culture revealed normal jessica. Received ceftriaxone x2 doses. - Time Time Spent with patient: 25-34 minutes Anticipated Discharge Disposition: Long Term Facility Anticipated Discharge Timeframe: within 72 hours
--- NOTE | 2020-04-05 19:01 | Progress Note ---
Provider Note Provider Note: CARDIOLOGY PROGRESS NOTE by Dr. Alicia Brizuela on 04/05/2020. SUBJECTIVE: The patient states he feels tired but he appears to be stronger and his voice is loud. He is eating about 50% to 75% of his diet. He appears to be less depressed. There is no chest pain or discomfort. There is no PND ortho pnea or leg edema. There is no firing of his AICD. He has no anginal symptoms. He denies any shortness of breath. There is no atrioventricular arrhythmias seen on the monitor. He is sat in the chair for about 10 minutes and [address] the way back to the bed he was found to be wheezing and hence is being started on steroids. At present he denies any shortness of breath. He was seen by invoice clerk and the recommendations have been noted. PHYSICAL EXAMINATION: The patient is a frail build and appears to be chronically ill and malnourished. But in no acute distress. Selected Entries 04/05/20 16:00 Temperature 98.1 F Temperature Oral Source Pulse Rate 90 Respiratory 18 Rate Blood Pressure 129/72 H [Left Upper Arm ] Blood Pressure 91 Mean [Left Upper Arm] Blood Pressure Supine Position [Left Upper Arm] O2 Sat by Pulse 94 Oximetry Oxygen Delivery Room Air Method ( includes room air) HEAD: Is atraumatic normocephalic. EYES: Pupils are equal round regular reactive to light and accommodation. Extraocular movements are normal. There is no conjunctival pallor. There is no scleral icterus. EARS: Tympanic membra lisa are intact. External auditory canals are clear. NOSE: There is no deviated nasal septum. There is no inflammation of the nasal mucous membrane. MOUTH: Mucous membranes of mouth are just moist, tongue is moist. THROAT: There is no redness of the oropharynx. There is no exudates. 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 There is no catie-care ecchymosis. NECK: Supple. There is no JVD present. Carotids are equal there is no bruit. There is no lymphadenopathy. There is no goiter. There is no accessory muscle respiration use. Trachea central. LUNGS: Shows diminished air entry prolonged expiration . There is no rhonchi or rales or wheezing. There is no chest wall tenderness on palpation. On palpation there is hyperresonance. There is no bibasilar rales of heart failure. HEART: S1-S2 is heard. There is no S3 gallop. There is no S4 gallop there is systolic murmur left sternal border and the apex there is no rub. ABDOMEN: Soft. There is no hepatosplenomegaly. Bowel sounds are normal. There is no hepatosplenomegaly. EXTREMITIES: There is diminished bilateral femoral pulses with bruits. 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 He has bilateral femoral bruits present. Leg pulses are diminished. There is no pedal edema bilaterally. There is no DVT or cellulitis. There is no cyanosis or clubbing. IRON INSTALLER: The patient is asleep, but when aroused/awaken he is oriented x3 with no focal deficit. Labs- All tests 24 hr 04/03/20 04/04/20 04/05/20 16:15 21:49 00:36 WBC RBC Hgb Hct MCV MCH MCHC RDW Plt Count Sodium Potassium Chloride Carbon Dioxide Anion Gap BUN Creatinine Est GFR ( Amer) Est GFR (MDRD) Non-Af Glucose POC Glucose 204 H 180 H Calcium COVID-19 ([facility]) Not Detected 04/05/20 04/05/20 04/05/20 06:04 06:04 06:43 WBC 3.2 L RBC 2.55 L Hgb 9.4 L Hct 26.6 L MCV 105 H MCH 36.8 H MCHC 35.2 RDW 23.3 H Plt Count 54 L Sodium 136.7 L Potassium 5.2 H Chloride 106 Carbon Dioxide 24 Anion Gap 7 BUN 64 H Creatinine 1.47 H Est GFR ( Amer) 58 L Est GFR (MDRD) Non-Af 48 L Glucose 158 H POC Glucose 158 H Calcium 9.3 COVID-19 ([facility]) 04/05/20 04/05/20 11:10 16:22 WBC RBC Hgb Hct MCV MCH MCHC RDW Plt Count Sodium Potassium Chloride Carbon Dioxide Anion Gap BUN Creatinine Est GFR ( Amer) Est GFR (MDRD) Non-Af Glucose POC Glucose 186 H 184 H Calcium COVID-19 ([facility]) Chest X-Ray 03/24/20 12:23 IMPRESSION: 1. New cardiomegaly. 2. Persistent right basilar infiltrate slightly improved from prior study. Renal Ultrasound 03/26/20 00:00 IMPRESSION: Unchanged bilateral renal cortical cysts and left renal atrophy. No hydronephrosis. IMPRESSION/RECOMMENDATION: 1. Severe dehydration, and UTI: These issues seems to have resolved. 2. Acute renal failure: Secondary to dehydration and also possibly decreased cardiac output secondary to decrease in optimal preload due to dehydration. Renal function is slowly improving. At present patient has chronic kidney disease stage III. 3. Thrombocytopenia: Watch for overt bleeding. 4. History of severe GI bleed and anemia secondary to gastric ulcer. Watch out for recurrence of bleeding. 5. History of gastric ulcer with bleeding. Later would see if the patient can have a repeat endoscopy to see if the ulcer is healed. 6. Cardiomyopathy with severely reduced LV ejection fraction. In view of the patient's renal function status agree with holding the patient's Entresto for now. Restart later after hydration. We will start the patient on midodrine to get his blood pressure up. Will restart the patient's Coreg at 6.25 mg p.o. every 12 hours. We will start the patient on small dose of hydralazine 10 mg p.o. 3 times daily. I will increase midodrine to 10 mg p.o. 3 times daily. We will hold off on the Entresto for now due to his renal function. 7. Coronary artery disease: History of NE: No anginal symptoms. 8. Severe pulmonary hypertension: Secondary to left heart failure and due to COPD. 9.COPD: No evidence of acute exacerbation. Patient has been started on steroids due to an episode of wheezing.. At present the lungs appear clear. 10. History of hypertension: The patient in the recent past has been on midodrine. The patient's blood pressure stable at present. 11. Hypothyroidism: Continue replacement 12. AICD placement: No firing of his AICD. 13. Depression: Will increase the patient's Cymbalta to twice daily. 14. Chronic debility and deconditioning: We will have physical therapy ambulate the patient. 15. Protein calorie malnutrition: Agree with dietary consult. 16. Pancytopenia: This is stable. This is a chronic problem Medications reviewed. Medical regimen and management plan discussed with attending provider on the case. Medical decision making is of moderate complexity. 40 minutes spent as patient more than 50% time spent in direct patient care. Arrangements are being made for transfer the patient to half-way facility. Will follow.
[2020-04-06 06:42] LABS: ANION GAP 7 (5-19); BLOOD UREA NITROGEN 71 mg/dL (7-20); CALCIUM 9.7 mg/dL (8.4-10.2); CARBON DIOXIDE 25 mmol/L (22-30); CHLORIDE 105 mmol/L (98-107); GLUCOSE 117 mg/dL (75-110); POTASSIUM 5.3 mmol/L (3.6-5.0)
[2020-04-06 06:49] LABS: HEMATOCRIT 29.1 % (37.9-51.0); HEMOGLOBIN 9.8 g/dL (13.5-17.0); MEAN CORPUSCULAR HEMOGLOBIN 35.7 pg (27.0-33.4); MEAN CORPUSCULAR VOLUME 106 fl (80-97); RED BLOOD COUNT 2.74 10^6/uL (4.35-5.55); WHITE BLOOD COUNT 5.8 10^3/uL (4.0-10.5)
[2020-04-06 06:50] LABS: MEAN CORPUSCULAR HGB CONC 33.6 g/dL (32.0-36.0); PLATELET COUNT 75 10^3/uL (150-450); RED CELL DISTRIBUTION WIDTH 23.8 % (11.5-14.0)
[2020-04-06] MEDS: INSULIN LISPRO 100 UNIT/ML 3 ML VIAL SUBCUT SCH ×4 (07:46→22:04)
[2020-04-06] MEDS: IPRATROPIUM/ALBUTEROL 0.5-2.5 MG/3 ML AMPUL NEB SCH ×2 (08:40→21:01)
[2020-04-06] MEDS ORDERED: SODIUM POLYSTYRENE SULFONATE 15 GM/60 ML PO ONE (09:00)
[2020-04-06] MEDS: MIDODRINE HCL 5 MG TABLET PO SCH ×3 (09:26→18:07)
[2020-04-06] MEDS: DULOXETINE HCL 20 MG CAPSULE.DR PO SCH ×2 (09:26→21:59)
[2020-04-06] MEDS: GUAIFENESIN 600 MG TABLET.SA PO SCH ×2 (09:28→21:59)
[2020-04-06] MEDS: PREDNISONE 20 MG TABLET PO SCH (09:28)
[2020-04-06] MEDS: CARVEDILOL 6.25 MG TABLET PO SCH ×2 (09:28→21:59)
[2020-04-06] MEDS: NICOTINE 14 MG/24 HR PATCH.TD24 TD SCH (09:29)
[2020-04-06] MEDS: ACETAMINOPHEN 325 MG TABLET PO PRN (09:31)
[2020-04-06] MEDS: SACUBITRIL/VALSARTAN 24 MG/26 MG TABLET PO SCH ×2 (09:43→21:59)
[2020-04-06] MEDS: ONDANSETRON HCL INJ/PF 4 MG/2 ML SDV IV PRN (11:28)
--- NOTE | 2020-04-06 16:51 | PDOC PROGRESS REPORT ---
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 04/05/2020. No acute events overnight. Saw patient this morning, enjoying his breakfast, stating that he could not get much sleep as he was anxious last night, denies any fever, chills, nausea, vomiting, chest pain. 04/06/2020. No acute events overnight. Saw patient this afternoon, resting in bed, no apparent distress, enjoying his supper, stating that he slept better last night but woke up feeling anxious this morning, still feeling very weak, endorsing very low appetite, denies any fever, chills, nausea, vomiting, denies any chest pain, pending transfer to SNF. Reason For Visit: MARTHA,DEHYDRATION,FTT Physical Exam Vital Signs: Temp Pulse Resp BP Pulse Ox 97.4 F 101 H 15 128/80 H 91 L 04/06/20 12:00 04/06/20 12:00 04/06/20 12:00 04/06/20 12:00 04/06/20 12:00 Intake & Output 04/05/20 04/06/20 04/07/20 06:59 06:59 06:59 Intake Total 1660 806 300 Output Total 1025 225 400 Balance 635 581 -100 Weight 56.3 kg 52.7 kg 52.7 kg General appearance: PRESENT: no acute distress, other - Appears very weak Head exam: PRESENT: atraumatic, normocephalic Eye exam: PRESENT: periorbital swelling Respiratory exam: PRESENT: clear to auscultation khushboo. ABSENT: rales, rhonchi, wheezes Cardiovascular exam: PRESENT: RRR. ABSENT: diastolic murmur, rubs, systolic murmur Pulses: PRESENT: normal dorsalis pedis pul GI/Abdominal exam: PRESENT: normal bowel sounds, soft. ABSENT: distended, g uarding, mass, organolmegaly, rebound, tenderness Neurological exam: PRESENT: alert, awake, oriented to person, oriented to place, oriented to time, oriented to situation, CN II-XII grossly intact. ABSENT: motor sensory deficit Results Laboratory Results: 04/06/20 05:47 04/06/20 05:47 04/06/20 04/06/20 05:47 05:47 WBC 5.8 RBC 2.74 L Hgb 9.8 L Hct 29.1 L MCV 106 H MCH 35.7 H MCHC 33.6 RDW 23.8 H Plt Count 75 L Sodium 136.6 L Potassium 5.3 H Chloride 105 Carbon Dioxide 25 Anion Gap 7 BUN 71 H Creatinine 1.42 H Est GFR ( Amer) > 60 Glucose 117 H Calcium 9.7 03/24/20 03/24/20 03/26/20 14:12 14:12 06:09 Creatine Kinase 59 Troponin I 0.124 NT-Pro-B Natriuret Pep [id number] H 356241 H 03/27/20 04:14 Creatine Kinase Troponin I NT-Pro-B Natriuret Pep [id number] H Impressions: Chest X-Ray 03/24/20 12:23 IMPRESSION: 1. New cardiomegaly. 2. Persistent right basilar infiltrate slightly improved from prior study. Renal Ultrasound 03/26/20 00:00 IMPRESSION: Unchanged bilateral renal cortical cysts and left renal atrophy. No hydronephrosis. Assessment and Plan - Diagnosis (1) NYHA class 4 heart failure with reduced ejection fraction Is this a current diagnosis for this admission?: Yes Plan: Cardiac medication managed by Dr. Castaneda. Please refer to note. Patient currently on midodrine, carvedilol, Entresto. Encourage p.o. fluids. Cardiac diet. Daily weights, strict I&O's. (2) Acute kidney injury Is this a current diagnosis for this admission?: Yes Plan: Acute on chronic kidney injury has now resolved. Creatinine and BUN at baseline. Continue to avoid nephrotoxic medications. Renally dose where appropriate. Monitor with periodic chemistries. (3) Dehydration Is this a current diagnosis for this admission?: Yes Plan: Resolved. His p.o. intake has improved. 1 L normal saline yesterday Encourage p.o. fluids. Daily weights, strict I&O's. (4) Pancytopenia Is this a current diagnosis for this admission?: Yes Plan: Improving. WBC WNL. Hemoglobin and platelets are stable. No evidence of active bleeding at this time. Anemia panel unremarkable Hematology was consulted; as pancytopenia is related to CHF and cirrhosis, and now improving, they have signed off. Outpatient PCP follow-up. (5) Physical deconditioning Is this a current diagnosis for this admission?: Yes Plan: Due to end-stage CHF. Continue PT OT. Encourage p.o. intake. Fall precautions. Pending SNF placement. (6) Protein-energy malnutrition Qualifiers: Protein-calorie malnutrition severity: moderate Qualified Code(s): E44.0 - Moderate protein-calorie malnutrition Is this a current diagnosis for this admission?: Yes Plan: BMI 20.2. Patient endorsing very low appetite only consuming 25-75 % of his meals. He also has a high energy expenditure related to his CHF. We will start on Megace. Registered dietitian is consulted. (7) Tobacco dependence Is this a current diagnosis for this admission?: Yes Plan: Smoking cessation encouraged. Nicotine replacement therapies provided. (8) UTI (urinary tract infection) Qualifiers: Urinary tract infection type: acute cystitis Hematuria presence: without hematuria Qualified Code(s): N30.00 - Acute cystitis without hematuria Is this a current diagnosis for this admission?: Yes Plan: Ruled out. Urinalysis positive for blood and leuk esterase. Urine culture revealed normal jessica. Received ceftriaxone x2 doses. - Time Time Spent with patient: 25-34 minutes Anticipated Discharge Disposition: Longterm Facility Anticipated Discharge Timeframe: when bed available
--- NOTE | 2020-04-06 18:48 | Progress Note ---
Provider Note Provider Note: CARDIOLOGY PROGRESS NOTE by Dr. Alicia Brizuela on 04/06/2020. SUBJECTIVE: The patient states he feels tired but he appears to be stronger and his voice is loud. He is eating about 75% of his diet. He appears to be less depressed. There is no chest pain or discomfort. There is no PND orthopnea o r leg edema. There is no firing of his AICD. He has no anginal symptoms. He denies any shortness of breath. There is no atrioventricular arrhythmias seen on the monitor. He is sat in the chair for about 10 minutes and on the way back to the bed he was found to be wheezing and hence is being started on steroids. At present he denies any shortness of breath. He was seen by radiology physician assistant and the recommendations have been noted. PHYSICAL EXAMINATION: The patient is a frail build and appears to be chronically ill and malnourished. But in no acute distress. Selected Entries 04/06/20 04/06/20 12:00 16:23 Temperature 97.4 F 98.4 F Temperature Oral Oral Source Pulse Rate 101 H 99 Respiratory 15 16 Rate Blood Pressure 122/74 Blood Pressure 128/80 H [Left Upper Arm ] Blood Pressure 90 Mean Blood Pressure 96 Mean [Left Upper Arm] BP Location Left Arm BP Position Supine O2 Sat by Pulse 91 L 93 Oximetry Oxygen Delivery Nasal Cannula Method ( includes room air) Oxygen Flow 3.00 Rate HEAD: Is atraumatic normocephalic. EYES: Pupils are equal round regular reactive to light and accommodation. Extraocular movements are normal. There is no conjunctival pallor. There is no scleral icterus. EARS: Tympanic membranes are intact. External auditory canals are clear. NOSE: There is no d eviated nasal septum. There is no inflammation of the nasal mucous membrane. MOUTH: Mucous membranes of mouth are just moist, tongue is moist. THROAT: There is no redness of the oropharynx. There is no exudates. 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 There is no catie-care ecchymosis. NECK: Supple. There is no JVD present. Carotids are equal there is no bruit. There is no lymphadenopathy. There is no goiter. There is no accessory muscle respiration use. Trachea central. LUNGS: Shows diminished air entry prolonged expiration . There is no rhonchi or rales or wheezing. There is no chest wall tenderness on palpation. On palpation there is hyperresonance. There is no bibasilar rales of heart failure. HEART: S1-S2 is heard. There is no S3 gallop. There is no S4 gallop there is systolic murmur left sternal border and the apex there is no rub. ABDOMEN: Soft. There is no hepatosplenomegaly. Bowel sounds are normal. There is no hepatosplenomegaly. EXTREMITIES: There is diminished bilateral femoral pulses with bruits. 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 He has bilateral femoral bruits present. Leg pulses are diminished. There is no pedal edema bilaterally. There is no DVT or cellulitis. There is no cyanosis or clubbing. TEMPERATURE REGULATOR PYROMETER: The patient is asleep, but when aroused/awaken he is oriented x3 with no focal deficit. Labs- All tests 24 hr 04/05/20 04/06/20 04/06/20 21:25 05:47 05:47 WBC 5.8 RBC 2.74 L Hgb 9.8 L Hct 29.1 L MCV 106 H MCH 35.7 H MCHC 33.6 RDW 23.8 H Plt Count 75 L Sodium 136.6 L Potassium 5.3 H Chloride 105 Carbon Dioxide 25 Anion Gap 7 BUN 71 H Creatinine 1.42 H Est GFR ( Amer) > 60 Est GFR (MDRD) Non-Af 50 L Glucose 117 H POC Glucose 208 H Calcium 9.7 04/06/20 04/06/20 04/06/20 06:38 12:31 16:21 WBC RBC Hgb Hct MCV MCH MCHC RDW Plt Count Sodium Potassium Chloride Carbon Dioxide Anion Gap BUN Creatinine Est GFR ( Amer) Est GFR (MDRD) Non-Af Glucose POC Glucose 134 H 125 H 160 H Calcium Chest X-Ray 03/24/20 12:23 IMPRESSION: 1. New cardiomegaly. 2. Persistent right basilar infiltrate slightly improved from prior study. Renal Ultrasound 03/26/20 00:00 IMPRESSION: Unchanged bilateral renal cortical cysts and left renal atrophy. No hydronephrosis. IMPRESSION/RECOMMENDATION: 1. Severe dehydration, and UTI: These issues seems to have resolved. 2. Acute renal failure: Secondary to dehydration and also possibly decreased cardiac output secondary to decrease in optimal preload due to dehydration. Renal function is slowly improving. At present patient has chronic kidney disease stage III A. GFR is now improved to 50mL/min/m. 3. Thrombocytopenia: Watch for overt bleeding. 4. History of severe GI bleed and anemia secondary to gastric ulcer. Watch out for recurrence of bleeding. 5. History of gastric ulcer with bleeding. Later would see if the patient can have a repeat endoscopy to see if the ulcer is healed. 6. Cardiomyopathy with severely reduced LV ejection fraction. In view of the patient's renal function status agree with holding the patient's Entresto for now. Restart later after hydration. We will start the patient on midodrine to get his blood pressure up. Will restart the patient's Coreg at 6.25 mg p.o. every 12 hours. We will start the patient on small dose of hydralazine 10 mg p.o. 3 times daily. I will increase midodrine to 10 mg p.o. 3 times daily. We will hold off on the Entresto for now due to his renal function. 7. Coronary artery disease: History of [place]: No anginal symptoms. 8. Severe pulmonary hypertension: Secondary to left heart failure and due to COPD. 9.COPD: No evidence of acute exacerbation. Patient has been started on steroids due to an episode of wheezing.. At present the lungs appear clear. 10. History of hypertension: The patient in the recent past has been on midodrine. The patient's blood pressure stable at present. 11. Hypothyroidism: Continue replacement 12. AICD placement: No firing of his AICD. 13. Depression: Will increase the patient's Cymbalta to twice daily. 14. Chronic debility and deconditioning: We will have physical therapy ambulate the patient. 15. Protein calorie malnutrition: Agree with dietary consult. 16. Pancytopenia: This is stable. This is a chronic problem Medications reviewed. Medical regimen and management plan discussed with attending provider on the case. Medical decision making is of moderate complexity. 40 minutes spent as patient more than 50% time spent in direct patient care. Arrangements are being made for transfer the patient to snf facility. Will follow.
[2020-04-06] MEDS: MEGESTROL ACETATE 20 MG TABLET PO SCH (22:00)
[2020-04-07] MEDS: TEMAZEPAM 15 MG CAPSULE PO PRN (01:09)
[2020-04-07 05:47] LABS: ANION GAP 11 (5-19); BLOOD UREA NITROGEN 79 mg/dL (7-20); CALCIUM 9.6 mg/dL (8.4-10.2); CARBON DIOXIDE 23 mmol/L (22-30); CHLORIDE 105 mmol/L (98-107); GLUCOSE 137 mg/dL (75-110); POTASSIUM 4.9 mmol/L (3.6-5.0)
[2020-04-07] MEDS: IPRATROPIUM/ALBUTEROL 0.5-2.5 MG/3 ML AMPUL NEB SCH ×2 (08:48→21:27)
[2020-04-07] MEDS: INSULIN LISPRO 100 UNIT/ML 3 ML VIAL SUBCUT SCH ×3 (09:04→17:45)
--- NOTE | 2020-04-07 11:01 | PDOC PROGRESS REPORT ---
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 04/05/2020. No acute events overnight. Saw patient this morning, enjoying his breakfast, stating that he could not get much sleep as he was anxious last night, denies any fever, chills, nausea, vomiting, chest pain. 04/06/2020. No acute events overnight. Saw patient this afternoon, resting in bed, no apparent distress, enjoying his supper, stating that he slept better last night but woke up feeling anxious this morning, still feeling very weak, endorsing very low appetite, denies any fever, chills, nausea, vomiting, denies any chest pain, pending transfer to SNF. 04/07/2020. No acute events overnight, complaining of nausea, generalized weakness, low appetite, stating that he slept better last night after taking temazepam, otherwise denies any fever, chills, chest pain, shortness of breath, abdominal pain or any urinary symptoms. Reason For Visit: MARTHA,DEHYDRATION,FTT Physical Exam Vital Signs: Temp Pulse Resp BP Pulse Ox 97.2 F 104 H 18 125/78 97 04/07/20 07:48 04/07/20 07:48 04/07/20 07:48 04/07/20 07:48 04/07/20 07:48 Intake & Output 04/06/20 04/07/20 04/08/20 06:59 06:59 06:59 Intake Total 806 520 Output Total 225 1662 Balance 581 -1142 Weight 52.7 kg 49.9 kg General appearance: PRESENT: no acute distress, thin, well-developed, well- nourished Head exam: PRESENT: atraumatic, normocephalic Eye exam: PRESENT: periorbital swelling Respiratory exam: PRESENT: clear to auscultation khushboo. ABSENT: rales, rhonchi, wheezes GI/Abdominal exam: PRESENT: normal bowel sounds, soft. ABSENT: distended, guarding, mass, organolmegaly, rebound, tenderness Neurological exam: PRESENT: alert, awake, oriented to person, oriented to place, oriented to time, oriented to situation, CN II-XII grossly intact. ABSENT: motor sensory deficit Results Laboratory Results: 04/06/20 05:47 04/07/20 04:42 04/07/20 04:42 Sodium 139.2 Potassium 4.9 Chloride 105 Carbon Dioxide 23 Anion Gap 11 BUN 79 H Creatinine 1.51 H Est GFR ( Amer) 56 L Glucose 137 H Calcium 9.6 Magnesium 2.1 03/24/20 03/24/20 03/26/20 14:12 14:12 06:09 Creatine Kinase 59 Troponin I 0.124 NT-Pro-B Natriuret Pep [id number] H 157203 H 03/27/20 04:14 Creatine Kinase Troponin I NT-Pro-B Natriuret Pep [id number] H Impressions: Chest X-Ray 03/24/20 12:23 IMPRESSION: 1. New cardiomegaly. 2. Persistent right basilar infiltrate slightly improved from prior study. Renal Ultrasound 03/26/20 00:00 IMPRESSION: Unchanged bilateral renal cortical cysts and left renal atrophy. No hydronephrosis. Assessment and Plan - Diagnosis (1) NYHA class 4 heart failure with reduced ejection fraction Is this a current diagnosis for this admission?: Yes Plan: Cardiac medication managed by Dr. Castaneda. Please refer to note. Patient currently on midodrine, carvedilol, Entresto. Encourage p.o. fluids. Cardiac diet. Daily weights, strict I&O's. (2) Acute kidney injury Is this a current diagnosis for this admission?: Yes Plan: Acute on chronic kidney injury has now resolved. Creatinine and BUN at baseline. Continue to avoid nephrotoxic medications. Renally dose where appropriate. Monitor with periodic chemistries. (3) Dehydration Is this a current diagnosis for this admission?: Yes Plan: Resolved. His p.o. intake has improved. 1 L normal saline yesterday Encourage p.o. fluids. Daily weights, strict I&O's. (4) Pancytopenia Is this a current diagnosis for this admission?: Yes Plan: Improving. WBC WNL. Hemoglobin and platelets are stable. No evidence of active bleeding at this time. Anemia panel unremarkable Hematology was consulted; as pancytopenia is related to CHF and cirrhosis, and now improving, they have signed off. Outpatient PCP follow-up. (5) Physical deconditioning Is this a current diagnosis for this admission?: Yes Plan: Due to end-stage CHF. Continue PT OT. Encourage p.o. intake. Fall precautions. Pending SNF placement. (6) Protein-energy malnutrition Qualifiers: Protein-calorie malnutrition severity: moderate Qualified Code(s): E44.0 - Moderate protein-calorie malnutrition Is this a current diagnosis for this admission?: Yes Plan: BMI 20.2. Patient endorsing very low appetite only consuming 25-75 % of his meals. He also has a high energy expenditure related to his CHF. We will start on Megace. Registered dietitian is consulted. (7) Tobacco dependence Is this a current diagnosis for this admission?: Yes Plan: Smoking cessation encouraged. Nicotine replacement therapies provided. (8) UTI (urinary tract infection) Qualifiers: Urinary tract infection type: acute cystitis Hematuria presence: without hematuria Qualified Code(s): N30.00 - Acute cystitis without hematuria Is this a current diagnosis for this admission?: Yes Plan: Ruled out. Urinalysis positive for blood and leuk esterase. Urine culture revealed normal jessica. Received ceftriaxone x2 doses. (9) Depression Qualifiers: Depression Type: major depressive disorder Major depression episode severity: moderate Is this a current diagnosis for this admission?: Yes Plan: Denies any suicidal or homicidal ideation. Already taking Cymbalta twice a day. We will add mirtazapine 7.5 mg nightly which will also help him sleep and stimulate his appetite. - Time Time Spent with patient: 25-34 minutes Anticipated Discharge Disposition: [facility] Anticipated Discharge Timeframe: when bed available
[2020-04-07] MEDS: SACUBITRIL/VALSARTAN 24 MG/26 MG TABLET PO SCH (12:02)
[2020-04-07] MEDS: MEGESTROL ACETATE 20 MG TABLET PO SCH (12:02)
[2020-04-07] MEDS: GUAIFENESIN 600 MG TABLET.SA PO SCH (12:03)
[2020-04-07] MEDS: CARVEDILOL 6.25 MG TABLET PO SCH (12:03)
[2020-04-07] MEDS: MIDODRINE HCL 5 MG TABLET PO SCH ×3 (12:03→18:11)
[2020-04-07] MEDS: NICOTINE 14 MG/24 HR PATCH.TD24 TD SCH (12:03)
[2020-04-07] MEDS: DULOXETINE HCL 20 MG CAPSULE.DR PO SCH (12:03)
--- NOTE | 2020-04-07 20:18 | Progress Note ---
Provider Note Provider Note: CARDIOLOGY PROGRESS NOTE by Dr. Alicia Brizuela on 04/07/2020. SUBJECTIVE: The patient states that he is ambulating with physical therapy. He feels better but still is sleeping a lot. He denies any chest pain or discomfort. There is no shortness of breath. There is no PND orthopnea or leg edema. There is no arrhythmias seen on the monitor. There is no firing of his AICD. He has no anginal symptoms. PHYSICAL EXAMINATION: The patient is a frail build. And appears to be chronically ill and malnourished. But in no acute distress. Selected Entries 04/07/20 04/07/20 07:48 08:48 Temperature 97.2 F Temperature Oral Source Pulse Rate 104 H 89 Respiratory 18 16 Rate Blood Pressure 125/78 Blood Pressure 93 Mean BP Location Left Arm BP Position Supine O2 Sat by Pulse 97 90 L Oximetry Oxygen Delivery Room Air Method ( includes room air) Oxygen Flow 3.00 Rate Oxygen Delivery Nasal Cannula Method HEAD: Is atraumatic normocephalic. EYES: Pupils are equal round regular reactive to light and accommodation. Extraocular movements are normal. There is no conjunctival pallor. There is no scleral icterus. EARS: Tympanic membranes are intact. External auditory canals are clear. NOSE: There is no deviated nasal septum. There is no inflammation of the nasal mucous membrane. MOUTH: Mucous membranes of mouth are just moist, tongue is moist. THROAT: There is no redness of the oropharynx. There is no exudates. 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 There is no catie-care ecchymosis. NECK: Supple. There is no JVD present. Carotids are equal there is no bruit. There is no lymphadenopathy. There is no goiter. There is no accessory muscle respiration use. Trachea central. LUNGS: Shows diminished air entry prolonged expiration . There is no rhonchi or rales or wheezing. There is no chest wall tenderness on palpation. On palpation there is hyperresonance. There is no bibasilar rales of heart failure. HEART: S1-S2 is heard. There is no S3 gallop. There is no S4 gallop there is systolic murmur left sternal border and the apex there is no rub. ABDOMEN: Soft. There is no hepatosplenomegaly. Bowel sounds are normal. There is no hepatosplenomegaly. EXTREMITIES: There is diminished bilateral femoral pulses with bruits. 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 He has bilateral femoral bruits present. Leg pulses are diminished. There is no pedal edema bilaterally. There is no DVT or cellulitis. There is no cyanosis or clubbing. CARROTER: The patient is asleep, but when aroused/awaken he is oriented x3 with no focal deficit. Labs- All tests 24 hr 04/06/20 04/07/20 04/07/20 21:23 04:42 06:24 Sodium 139.2 Potassium 4.9 Chloride 105 Carbon Dioxide 23 Anion Gap 11 BUN 79 H Creatinine 1.51 H Est GFR ( Amer) 56 L Est GFR (MDRD) Non-Af 46 L Glucose 137 H POC Glucose 163 H 143 H Calcium 9.6 Magnesium 2.1 04/07/20 04/07/20 12:00 16:31 Sodium Potassium Chloride Carbon Dioxide Anion Gap BUN Creatinine Est GFR ( Amer) Est GFR (MDRD) Non-Af Glucose POC Glucose 170 H 130 H Calcium Magnesium Chest X-Ray 03/24/20 12:23 IMPRESSION: 1. New cardiomegaly. 2. Persistent right basilar infiltrate slightly improved from prior study. Renal Ultrasound 03/26/20 00:00 IMPRESSION: Unchanged bilateral renal cortical cysts and left renal atrophy. No hydronephrosis. IMPRESSION/RECOMMENDATION: 1. Severe dehydration, and UTI: These issues seems to have resolved. 2. Acute renal failure: Secondary to dehydration and also possibly decreased cardiac output secondary to decrease in optimal preload due to dehydration. Renal function is slowly improving. At present patient has chronic kidney disease stage III A. GFR is now improved to 50mL/min/m. 3. Thrombocytopenia: Watch for overt bleeding. 4. History of severe GI bleed and anemia secondary to gastric ulcer. Watch out for recurrence of bleeding. 5. History of gastric ulcer with bleeding. Later would see if the patient can have a repeat endoscopy to see if the ulcer is healed. 6. Cardiomyopathy with severely reduced LV ejection fraction. In view of the patient's renal function status agree with holding the patient's Entresto for now. Restart later after hydration. We will start the patient on midodrine to get his blood pressure up. Will restart the patient's Coreg at 6.25 mg p.o. e very 12 hours. We will start the patient on small dose of hydralazine 10 mg p.o. 3 times daily. I will increase midodrine to 10 mg p.o. 3 times daily. We will hold off on the Entresto for now due to his renal function. 7. Coronary artery disease: History of [place]: No anginal symptoms. 8. Severe pulmonary hypertension: Secondary to left heart failure and due to COPD. 9.COPD: No evidence of acute exacerbation. Patient has been started on steroids due to an episode of wheezing.. At present the lungs appear clear. 10. History of hypertension: The patient in the recent past has been on mid odrine. The patient's blood pressure stable at present. 11. Hypothyroidism: Continue replacement 12. AICD placement: No firing of his AICD. 13. Depression: Will increase the patient's Cymbalta to twice daily. 14. Chronic debility and deconditioning: We will have physical therapy ambulate the patient. 15. Protein calorie malnutrition: Agree with dietary consult. 16. Pancytopenia: This is stable. This is a chronic problem Medications reviewed. Medical regimen and management plan discussed with attending provider on the case. Medical decision making is of moderate complexity. 40 minutes spent as patient more than 50% time spent in direct patient care. Arrangements are being made for transfer the patient to residential facility. Will follow.
[2020-04-08] MEDS: INSULIN LISPRO 100 UNIT/ML 3 ML VIAL SUBCUT SCH ×5 (00:08→22:08)
[2020-04-08] MEDS: CARVEDILOL 6.25 MG TABLET PO SCH ×3 (00:17→22:07)
[2020-04-08] MEDS: MIRTAZAPINE 15 MG TABLET PO SCH ×2 (00:17→22:06)
[2020-04-08] MEDS: DULOXETINE HCL 20 MG CAPSULE.DR PO SCH ×3 (00:18→22:06)
[2020-04-08] MEDS: ONDANSETRON HCL INJ/PF 4 MG/2 ML SDV IV PRN (00:18)
[2020-04-08] MEDS: GUAIFENESIN 600 MG TABLET.SA PO SCH ×3 (00:18→22:06)
[2020-04-08] MEDS: SACUBITRIL/VALSARTAN 24 MG/26 MG TABLET PO SCH ×3 (00:18→22:06)
[2020-04-08] MEDS: IPRATROPIUM/ALBUTEROL 0.5-2.5 MG/3 ML AMPUL NEB SCH ×2 (08:42→21:10)
[2020-04-08] MEDS: MIDODRINE HCL 5 MG TABLET PO SCH ×3 (09:36→17:24)
[2020-04-08] MEDS: NICOTINE 14 MG/24 HR PATCH.TD24 TD SCH (09:36)
[2020-04-08] MEDS: MEGESTROL ACETATE 20 MG TABLET PO SCH (09:37)
--- NOTE | 2020-04-08 12:13 | PDOC PROGRESS REPORT ---
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 04/05/2020. No acute events overnight. Saw patient this morning, enjoying his breakfast, stating that he could not get much sleep as he was anxious last night, denies any fever, chills, nausea, vomiting, chest pain. 04/06/2020. No acute events overnight. Saw patient this afternoon, resting in bed, no apparent distress, enjoying his supper, stating that he slept better last night but woke up feeling anxious this morning, still feeling very weak, endorsing very low appetite, denies any fever, chills, nausea, vomiting, denies any chest pain, pending transfer to SNF. 04/07/2020. No acute events overnight, complaining of nausea, generalized weakness, low appetite, stating that he slept better last night after taking temazepam, otherwise denies any fever, chills, chest pain, shortness of breath, abdominal pain or any urinary symptoms. 04/08/2020. No acute events overnight. Saw patient this morning, awake and alert, stating that he feels very tired and fatigued, appetite still remains poor, reporting improvement of his insomnia, denies any chest pain, fever, chills, nausea, vomiting. Reason For Visit: MARTHA,DEHYDRATION,FTT Physical Exam Vital Signs: Temp Pulse Resp BP Pulse Ox 97.1 F 94 14 112/74 93 04/08/20 07:13 04/08/20 08:42 04/08/20 08:42 04/08/20 07:13 04/08/20 08:42 Intake & Output 04/07/20 04/08/20 04/09/20 06:59 06:59 06:59 Intake Total 520 1130 Output Total 1662 100 Balance -1142 1030 Weight 49.9 kg 55.9 kg General appearance: PRESENT: no acute distress, thin, other - Appears weak, depressed. Head exam: PRESENT: atraumatic, normocephalic Eye exam: PRESENT: periorbital swelling Neck exam: ABSENT: carotid bruit, JVD, lymphadenopathy, thyromegaly Respiratory exam: PRESENT: clear to auscultation khushboo. ABSENT: rales, rhonchi, wheezes GI/Abdominal exam: PRESENT: normal bowel sounds, soft. ABSENT: distended, guarding, mass, organolmegaly, rebound, tenderness Neurological exam: PRESENT: alert, awake, oriented to person, oriented to place, oriented to time, oriented to situation, CN II-XII grossly intact. ABSENT: motor sensory deficit Results Laboratory Results: 04/06/20 05:47 04/07/20 04:42 03/24/20 03/24/20 03/26/20 14:12 14:12 06:09 Creatine Kinase 59 Troponin I 0.124 NT-Pro-B Natriuret Pep [id number] H 189973 H 03/27/20 04:14 Creatine Kinase Troponin I NT-Pro-B Natriuret Pep [id number] H Impressions: Chest X-Ray 03/24/20 12:23 IMPRESSION: 1. New cardiomegaly. 2. Persistent right basilar infiltrate slightly improved from prior study. Renal Ultrasound 03/26/20 00:00 IMPRESSION: Unchanged bilateral renal cortical cysts and left renal atrophy. No hydronephrosis. Assessment and Plan - Diagnosis (1) NYHA class 4 heart failure with reduced ejection fraction Is this a current diagnosis for this admission?: Yes Plan: Cardiac medication managed by Dr. Castaneda. Please refer to note. Patient currently on midodrine, carvedilol, Entresto. Encourage p.o. fluids. Cardiac diet. Daily weights, strict I&O's. (2) Acute kidney injury Is this a current diagnosis for this admission?: Yes Plan: Acute on chronic kidney injury has now resolved. Creatinine and BUN at baseline. Continue to avoid nephrotoxic medications. Renally dose where appropriate. Monitor with periodic chemistries. (3) Dehydration Is this a current diagnosis for this admission?: Yes Plan: Resolved. His p.o. intake has improved. Encourage p.o. fluids. Daily weights, strict I&O's. (4) Pancytopenia Is this a current diagnosis for this admission?: Yes Plan: Improving. WBC WNL. Hemoglobin and platelets are stable. No evidence of active bleeding at this time. Anemia panel unremarkable Hematology was consulted; as pancytopenia is related to CHF and cirrhosis, and now improving, they have signed off. Outpatient PCP follow-up. (5) Physical deconditioning Is this a current diagnosis for this admission?: Yes Plan: Due to end-stage CHF. Continue PT OT. Encourage p.o. intake. Fall precautions. Pending SNF placement. (6) Protein-energy malnutrition Qualifiers: Protein-calorie malnutrition severity: moderate Qualified Code(s): E44.0 - Moderate protein-calorie malnutrition Is this a current diagnosis for this admission?: Yes Plan: BMI 20.2. Patient endorsing very low appetite only consuming 25-75 % of his meals. He also has a high energy expenditure related to his CHF. We will start on Megace. Registered dietitian is consulted. (7) Tobacco dependence Is this a current diagnosis for this admission?: Yes Plan: Smoking cessation encouraged. Nicotine replacement therapies provided. (8) UTI (urinary tract infection) Qualifiers: Urinary tract infection type: acute cystitis Hematuria presence: without hematuria Qualified Code(s): N30.00 - Acute cystitis without hematuria Is this a current diagnosis for this admission?: Yes Plan: Ruled out. Urinalysis positive for blood and leuk esterase. Urine culture revealed normal jessica. Received ceftriaxone x2 doses. (9) Depression Qualifiers: Depression Type: major depressive disorder Major depression episode severity: moderate Is this a current diagnosis for this admission?: Yes Plan: Denies any suicidal or homicidal ideation. Continue Cymbalta. Continue mirtazapine 7.5 mg p.o. nightly. - Time Time Spent with patient: 25-34 minutes Anticipated Discharge Disposition: [facility] Facility Anticipated Discharge Timeframe: when bed available
--- NOTE | 2020-04-08 18:55 | Progress Note ---
Provider Note Provider Note: CARDIOLOGY PROGRESS NOTE by Dr. Alicia Brizuela on 04/08/2020. SUBJECTIVE: The patient states that he is ambulating with physical therapy. He feels better but still is sleeping a lot. He denies any chest pain or discomfort. There is no shortness of breath. There is no PND orthopnea or leg edema. There is no arrhythmias seen on the monitor. There is no firing of his AICD. He has no anginal symptoms. He states he is ambulating with physical therapy. Is still awaiting SNF placement. His cardiac status is stable. PHYSICAL EXAMINATION: The patient is a frail build. And appears to be chronically ill and malnourished. But in no acute distress. Selected Entries 04/08/20 04/08/20 11:25 16:27 Temperature 98.0 F 97.8 F Pulse Rate 96 Respiratory 19 Rate Blood Pressure 114/71 Blood Pressure 85 Mean BP Location Left Arm BP Position Supine O2 Sat by Pulse 93 Oximetry Oxygen Flow 2.00 Rate Oxygen Delivery Nasal Cannula Method HEAD: Is atraumatic normocephalic. EYES: Pupils are equal round regular reactive to light and accommodation. Extraocular movements are normal. There is no conjunctival pallor. There is no scleral icterus. EARS: Tympanic membranes are intact. External auditory canals are clear. NOSE: There is no deviated nasal septum. There is no inflammation of the nasal mucous membrane. MOUTH: Mucous membranes of mouth are just moist, tongue is moist. THROAT: There is no redness of the oropharynx. There is no exudates. 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 There is no catie-care ecchymosis. NECK: Supple. There is no JVD present. Carotids are equal there is no bruit. There is no lymphadenopathy. There is no goiter. There is no accessory muscle respiration use. Trachea central. LUNGS: Shows diminished air entry prolonged expiration . There is no rhonchi or rales or wheezing. There is no chest wall tenderness on palpation. On palpation there is hyperresonance. There is no bibasilar rales of heart failure. HEART: S1-S2 is heard. There is no S3 gallop. There is no S4 gallop there is systolic murmur left sternal border and the apex there is no rub. ABDOMEN: Soft. There is no hepatosplenomegaly. Bowel sounds are normal. There is no hepatosplenomegaly. EXTREMITIES: There is diminished bilateral femoral pulses with bruits. 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 He has bilateral femoral bruits present. Leg pulses are diminished. There is no pedal edema bilaterally. There is no DVT or cellulitis. There is no cyanosis or clubbing. QUILL LAYER: The patient is asleep, but when aroused/awaken he is oriented x3 with no focal deficit. Labs- All tests 24 hr 04/07/20 04/08/20 04/08/20 22:36 07:38 11:22 POC Glucose 128 H 95 96 04/08/20 16:35 POC Glucose 93 Chest X-Ray 03/24/20 12:23 IMPRESSION: 1. New cardiomegaly. 2. Persistent right basilar infiltrate slightly improved from prior study. Renal Ultrasound 03/26/20 00:00 IMPRESSION: Unchanged bilateral renal cortical cysts and left renal atrophy. No hydronephrosis. IMPRESSION/RECOMMENDATION: 1. Severe dehydration, and UTI: These issues seems to have resolved. 2. Acute renal failure: Secondary to dehydration and also possibly decreased cardiac output secondary to decrease in optimal preload due to dehydration. Renal function is slowly improving. At present patient has chronic kidney disease stage III A. GFR is now improved to 50mL/min/m. 3. Thrombocytopenia: Watch for overt bleeding. 4. History of severe GI bleed and anemia secondary to gastric ulcer. Watch out for recurrence of bleeding. 5. History of gastric ulcer with bleeding. Later would see if the patient can have a repeat endoscopy to see if the ulcer is healed. 6. Cardiomyopathy with severely reduced LV ejection fraction. In view of the patient's renal function status agree with holding the patient's Entresto for now. Restart later after hydration. We will start the patient on midodrine to get his blood pressure up. Will restart the patient's Coreg at 6.25 mg p.o. every 12 hours. We will start the patient on small dose of hydralazine 10 mg p.o. 3 times daily. I will increase midodrine to 10 mg p.o. 3 times daily. We will hold off on the Entresto for now due to his renal function. 7. Coronary artery disease: History of [place]: No anginal symptoms. 8. Severe pulmonary hypertension: Secondary to left heart failure and due to COPD. 9.COPD: No evidence of acute exacerbation. Patient has been started on steroids due to an episode of wheezing.. At present the lungs appear clear. 10. History of hypertension: The patient in the recent past has been on midodrine. The patient's blood pressure stable at present. 11. Hypothyroidism: Continue replacement 12. AICD placement: No firing of his AICD. 13. Depression: Will increase the patient's Cymbalta to twice daily. 14. Chronic debility and deconditioning: We will have physical therapy ambulate the patient. 15. Protein calorie malnutrition: Agree with dietary consult. 16. Pancytopenia: This is stable. This is a chronic problem Medications reviewed. Medical regimen and management plan discussed with attending provider on the case. Medical decision making is of moderate complexity. 40 minutes spent as patient more than 50% time spent in direct patient care. Arrangements are being made for transfer the patient to [facility] facility. His cardiac status is stable. We will sign off. We will fol low the patient in the office. We will see the patient 2 to 3 weeks after his discharge from the hospital to the SNF..
[2020-04-08] MEDS: TEMAZEPAM 15 MG CAPSULE PO PRN (22:12)
[2020-04-09 07:06] LABS: ABSOLUTE EOSINOPHILS # (AUTO) 0.1 10^3/uL (0.0-0.6); ABSOLUTE LYMPHOCYTES (AUTO) 0.4 10^3/uL (0.5-4.7); ABSOLUTE MONOCYTES (AUTO) 0.2 10^3/uL (0.1-1.4); BASOPHILS % (AUTO) 0.2 % (0-2); EOSINOPHILS % (AUTO) 2.1 % (0-6); HEMATOCRIT 30.5 % (37.9-51.0); HEMOGLOBIN 10.4 g/dL (13.5-17.0); LYMPHOCYTES % (AUTO) 11.2 % (13-45); MEAN CORPUSCULAR HEMOGLOBIN 36.1 pg (27.0-33.4); MEAN CORPUSCULAR VOLUME 106 fl (80-97); MONOCYTES % (AUTO) 4.7 % (3-13); RED BLOOD COUNT 2.88 10^6/uL (4.35-5.55); RED CELL DISTRIBUTION WIDTH 22.1 % (11.5-14.0); SEGMENTED NEUTROPHILS % (AUTO) 81.8 % (42-78); TOTAL CELLS COUNTED % (AUTO) 100 %; WHITE BLOOD COUNT 3.7 10^3/uL (4.0-10.5)
[2020-04-09 07:18] LABS: ANION GAP 6 (5-19); BLOOD UREA NITROGEN 87 mg/dL (7-20); CALCIUM 9.4 mg/dL (8.4-10.2); CARBON DIOXIDE 24 mmol/L (22-30); CHLORIDE 107 mmol/L (98-107); POTASSIUM 5.2 mmol/L (3.6-5.0)
[2020-04-09 07:37] LABS: GLUCOSE 58 mg/dL (75-110)
[2020-04-09 07:54] LABS: PLATELET COUNT 74 10^3/uL (150-450)
[2020-04-09] MEDS: IPRATROPIUM/ALBUTEROL 0.5-2.5 MG/3 ML AMPUL NEB SCH ×2 (09:13→21:16)
[2020-04-09] MEDS: INSULIN LISPRO 100 UNIT/ML 3 ML VIAL SUBCUT SCH ×4 (09:47→21:57)
[2020-04-09] MEDS: SACUBITRIL/VALSARTAN 24 MG/26 MG TABLET PO SCH ×2 (10:42→21:56)
[2020-04-09] MEDS: DULOXETINE HCL 20 MG CAPSULE.DR PO SCH ×2 (10:42→21:56)
[2020-04-09] MEDS: MEGESTROL ACETATE 20 MG TABLET PO SCH (10:42)
[2020-04-09] MEDS: NICOTINE 14 MG/24 HR PATCH.TD24 TD SCH (10:43)
[2020-04-09] MEDS: GUAIFENESIN 600 MG TABLET.SA PO SCH ×2 (10:43→21:56)
[2020-04-09] MEDS: MIDODRINE HCL 5 MG TABLET PO SCH ×3 (10:49→17:58)
[2020-04-09] MEDS: CARVEDILOL 6.25 MG TABLET PO SCH ×2 (10:49→21:56)
--- NOTE | 2020-04-09 14:26 | PDOC PROGRESS REPORT ---
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 04/05/2020. No acute events overnight. Saw patient this morning, enjoying his breakfast, stating that he could not get much sleep as he was anxious last night, denies any fever, chills, nausea, vomiting, chest pain. 04/06/2020. No acute events overnight. Saw patient this afternoon, resting in bed, no apparent distress, enjoying his supper, stating that he slept better last night but woke up feeling anxious this morning, still feeling very weak, endorsing very low appetite, denies any fever, chills, nausea, vomiting, denies any chest pain, pending transfer to SNF. 04/07/2020. No acute events overnight, complaining of nausea, generalized weakness, low appetite, stating that he slept better last night after taking temazepam, otherwise denies any fever, chills, chest pain, shortness of breath, abdominal pain or any urinary symptoms. 04/08/2020. No acute events overnight. Saw patient this morning, awake and alert, stating that he feels very tired and fatigued, appetite still remains poor, reporting improvement of his insomnia, denies any chest pain, fever, chills, nausea, vomiting. 04/09/2020. Patient was very sad and sleepy today, does not interact much, saying that he feels very weak, does not have much of an appetite, has any chest pain, shortness of breath, nausea, vomiting. Placement to SNF. Reason For Visit: MARTHA,DEHYDRATION,FTT Physical Exam Vital Signs: Temp Pulse Resp BP Pulse Ox 97.8 F 89 25 H 108/76 94 04/09/20 12:06 04/09/20 12:06 04/09/20 12:06 04/09/20 12:06 04/09/20 12:06 Intake & Output 04/08/20 04/09/20 04/10/20 06:59 06:59 06:59 Intake Total 1130 933 355 Output Total 100 100 Balance 1030 833 355 Weight 55.9 kg 54.2 kg 54.2 kg General appearance: PRESENT: no acute distress, well-developed Head exam: PRESENT: atraumatic, normocephalic Neck exam: ABSENT: carotid bruit, JVD, lymphadenopathy, thyromegaly Respiratory exam: PRESENT: clear to auscultation khushboo. ABSENT: rales, rhonchi, wheezes GI/Abdominal exam: PRESENT: normal bowel sounds, soft. ABSENT: distended, guarding, mass, organolmegaly, rebound, tenderness Neurological exam: PRESENT: alert - Sleeping but easily arousable, answers question appropriately., awake, oriented to person, oriented to place, CN II-XII grossly intact, other. ABSENT: motor sensory deficit Results Laboratory Results: 04/09/20 06:08 04/09/20 06:08 04/09/20 04/09/20 06:08 06:08 WBC 3.7 L RBC 2.88 L Hgb 10.4 L Hct 30.5 L MCV 106 H MCH 36.1 H MCHC 34.0 RDW 22.1 H Plt Count 74 L Seg Neutrophils % 81.8 H Sodium 136.6 L Potassium 5.2 H Chloride 107 Carbon Dioxide 24 Anion Gap 6 BUN 87 H Creatinine 1.39 H Est GFR ( Amer) > 60 Glucose 58 L Calcium 9.4 03/24/20 03/24/20 03/26/20 14:12 14:12 06:09 Creatine Kinase 59 Troponin I 0.124 NT-Pro-B Natriuret Pep [id number] H 770075 H 03/27/20 04:14 Creatine Kinase Troponin I NT-Pro-B Natriuret Pep 190505 H Impressions: Chest X-Ray 03/24/20 12:23 IMPRESSION: 1. New cardiomegaly. 2. Persistent right basilar infiltrate slightly improved from prior study. Renal Ultrasound 03/26/20 00:00 IMPRESSION: Unchanged bilateral renal cortical cysts and left renal atrophy. No hydronephrosis. Assessment and Plan - Diagnosis (1) NYHA class 4 heart failure with reduced ejection fraction Is this a current diagnosis for this admission?: Yes Plan: Cardiac medication managed by Dr. Castaneda. Please refer to note. Patient currently on midodrine, carvedilol, Entresto. Encourage p.o. fluids. Cardiac diet. Daily weights, strict I&O's. (2) Acute kidney injury Is this a current diagnosis for this admission?: Yes Plan: Acute on chronic kidney injury has now resolved. Creatinine and BUN at baseline. Continue to avoid nephrotoxic medications. Renally dose where appropriate. Monitor with periodic chemistries. (3) Dehydration Is this a current diagnosis for this admission?: Yes Plan: Resolved. His p.o. intake has improved. Encourage p.o. fluids. Daily weights, strict I&O's. (4) Pancytopenia Is this a current diagnosis for this admission?: Yes Plan: Improving. WBC WNL. Hemoglobin and platelets are stable. No evidence of active bleeding at this time. Anemia panel unremarkable Hematology was consulted; as pancytopenia is related to CHF and cirrhosis, and now improving, they have signed off. Outpatient PCP follow-up. (5) Physical deconditioning Is this a current diagnosis for this admission?: Yes Plan: Due to end-stage CHF. Continue PT OT. Encourage p.o. intake. Fall precautions. Pending SNF placement. (6) Protein-energy malnutrition Qualifiers: Protein-calorie malnutrition severity: moderate Qualified Code(s): E44.0 - Moderate protein-calorie malnutrition Is this a current diagnosis for this admission?: Yes Plan: BMI 20.2. Patient endorsing very low appetite only consuming 25-75 % of his meals. He also has a high energy expenditure related to his CHF. We will start on Megace. Registered dietitian is consulted. (7) Tobacco dependence Is this a current diagnosis for this admission?: Yes Plan: Smoking cessation encouraged. Nicotine replacement therapies provided. (8) UTI (urinary tract infection) Qualifiers: Urinary tract infection type: acute cystitis Hematuria presence: without hematuria Qualified Code(s): N30.00 - Acute cystitis without hematuria Is this a current diagnosis for this admission?: Yes Plan: Ruled out. Urinalysis positive for blood and leuk esterase. Urine culture revealed normal jessica. Received ceftriaxone x2 doses. (9) Depression Qualifiers: Depression Type: major depressive disorder Major depression episode severity: moderate Is this a current diagnosis for this admission?: Yes Plan: Denies any suicidal or homicidal ideation. Continue Cymbalta. DC mirtazapine as patient is becoming too sleepy. - Time Time Spent with patient: 15-24 minutes Anticipated Discharge Disposition: Residential Facility Anticipated Discharge Timeframe: when bed available
[2020-04-09] MEDS ORDERED: DRONABINOL 2.5 MG CAPSULE PO ONE (15:30)
[2020-04-09] MEDS: TEMAZEPAM 15 MG CAPSULE PO PRN (21:56)
[2020-04-10] MEDS: INSULIN LISPRO 100 UNIT/ML 3 ML VIAL SUBCUT SCH ×4 (07:26→22:46)
[2020-04-10] MEDS: IPRATROPIUM/ALBUTEROL 0.5-2.5 MG/3 ML AMPUL NEB SCH ×2 (08:20→22:01)
[2020-04-10] MEDS: MEGESTROL ACETATE 20 MG TABLET PO SCH (09:45)
[2020-04-10] MEDS: GUAIFENESIN 600 MG TABLET.SA PO SCH ×2 (09:45→21:18)
[2020-04-10] MEDS: MIDODRINE HCL 5 MG TABLET PO SCH ×3 (09:45→17:29)
[2020-04-10] MEDS: SACUBITRIL/VALSARTAN 24 MG/26 MG TABLET PO SCH ×2 (09:45→21:17)
[2020-04-10] MEDS: NICOTINE 14 MG/24 HR PATCH.TD24 TD SCH (09:45)
[2020-04-10] MEDS: DULOXETINE HCL 20 MG CAPSULE.DR PO SCH ×2 (09:45→21:18)
[2020-04-10] MEDS: CARVEDILOL 6.25 MG TABLET PO SCH ×2 (09:45→21:16)
--- NOTE | 2020-04-10 13:00 | PDOC PROGRESS REPORT ---
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 04/05/2020. No acute events overnight. Saw patient this morning, enjoying his breakfast, stating that he could not get much sleep as he was anxious last night, denies any fever, chills, nausea, vomiting, chest pain. 04/06/2020. No acute events overnight. Saw patient this afternoon, resting in bed, no apparent distress, enjoying his supper, stating that he slept better last night but woke up feeling anxious this morning, still feeling very weak, endorsing very low appetite, denies any fever, chills, nausea, vomiting, denies any chest pain, pending transfer to SNF. 04/07/2020. No acute events overnight, complaining of nausea, generalized weakness, low appetite, stating that he slept better last night after taking temazepam, otherwise denies any fever, chills, chest pain, shortness of breath, abdominal pain or any urinary symptoms. 04/08/2020. No acute events overnight. Saw patient this morning, awake and alert, stating that he feels very tired and fatigued, appetite still remains poor, reporting improvement of his insomnia, denies any chest pain, fever, chills, nausea, vomiting. 04/09/2020. Patient was very sad and sleepy today, does not interact much, saying that he feels very weak, does not have much of an appetite, has any chest pain, shortness of breath, nausea, vomiting. Placement to SNF. 04/10/2020. No acute events noted. Saw patient this morning while enjoying his breakfast, still complaining of being very weak, nonambulatory due to extreme weakness, reporting very low appetite, stating that yesterday he had a good appetite after being given Marinol, otherwise denies any fever, chills, nausea, vomiting, diarrhea, constipation. Reason For Visit: MARTHA,DEHYDRATION,FTT Physical Exam Vital Signs: Temp Pulse Resp BP Pulse Ox 97.9 F 82 24 H 114/67 94 04/10/20 11:14 04/10/20 11:14 04/10/20 11:14 04/10/20 11:14 04/10/20 11:14 Intake & Output 04/09/20 04/10/20 04/11/20 06:59 06:59 06:59 Intake Total 933 710 240 Output Total 100 0 Balance 833 710 240 Weight 54.2 kg 54.2 kg General appearance: PRESENT: no acute distress, well-developed, well-nourished Head exam: PRESENT: atraumatic, normocephalic Respiratory exam: PRESENT: clear to auscultation khushboo. ABSENT: rales, rhonchi, wheezes Cardiovascular exam: PRESENT: RRR. ABSENT: diastolic murmur, rubs, systolic murmur GI/Abdominal exam: PRESENT: normal bowel sounds, soft. ABSENT: distended, guarding, mass, organolmegaly, rebound, tenderness Neurological exam: PRESENT: alert, awake, oriented to person, oriented to place, oriented to time, oriented to situation, CN II-XII grossly intact. ABSENT: motor sensory deficit Results Laboratory Results: 04/09/20 06:08 04/09/20 06:08 03/24/20 03/24/20 03/26/20 14:12 14:12 06:09 Creatine Kinase 59 Troponin I 0.124 NT-Pro-B Natriuret Pep [id number] H 477395 H 03/27/20 04:14 Creatine Kinase Troponin I NT-Pro-B Natriuret Pep [id number] H Impressions: Chest X-Ray 03/24/20 12:23 IMPRESSION: 1. New cardiomegaly. 2. Persistent right basilar infiltrate slightly improved from prior study. Renal Ultrasound 03/26/20 00:00 IMPRESSION: Unchanged bilateral renal cortical cysts and left renal atrophy. No hydronephrosis. Assessment and Plan - Diagnosis (1) NYHA class 4 heart failure with reduced ejection fraction Is this a current diagnosis for this admission?: Yes Plan: Cardiac medication managed by Dr. Castaneda. Please refer to note. Patient currently on midodrine, carvedilol, Entresto. Encourage p.o. fluids. Cardiac diet. Daily weights, strict I&O's. (2) Acute kidney injury Is this a current diagnosis for this admission?: Yes Plan: Acute on chronic kidney injury has now resolved. Creatinine and BUN at baseline. Continue to avoid nephrotoxic medications. Renally dose where appropriate. Monitor with periodic chemistries. (3) Dehydration Is this a current diagnosis for this admission?: Yes Plan: Resolved. His p.o. intake has improved. Encourage p.o. fluids. Daily weights, strict I&O's. (4) Pancytopenia Is this a current diagnosis for this admission?: Yes Plan: Improving. WBC WNL. Hemoglobin and platelets are stable. No evidence of active bleeding at this time. Anemia panel unremarkable Hematology was consulted; as pancytopenia is related to CHF and cirrhosis, and now improving, they have signed off. Outpatient PCP follow-up. (5) Physical deconditioning Is this a current diagnosis for this admission?: Yes Plan: Due to end-stage CHF. Continue PT OT. Encourage p.o. intake. Fall precautions. Pending SNF placement. (6) Protein-energy malnutrition Qualifiers: Protein-calorie malnutrition severity: moderate Qualified Code(s): E44.0 - Moderate protein-calorie malnutrition Is this a current diagnosis for this admission?: Yes Plan: BMI 20.2. Patient endorsing very low appetite only consuming 25-75 % of his meals. He also has a high energy expenditure related to his CHF. We will start on Megace. Registered dietitian is consulted. (7) Tobacco dependence Is this a current diagnosis for this admission?: Yes Plan: Smoking cessation encouraged. Nicotine replacement therapies provided. (8) UTI (urinary tract infection) Qualifiers: Urinary tract infection type: acute cystitis Hematuria presence: without hematuria Qualified Code(s): N30.00 - Acute cystitis without hematuria Is this a current diagnosis for this admission?: Yes Plan: Ruled out. Urinalysis positive for blood and leuk esterase. Urine culture revealed normal jessica. Received ceftriaxone x2 doses. (9) Depression Qualifiers: Depression Type: major depressive disorder Major depression episode severity: moderate Is this a current diagnosis for this admission?: Yes Plan: Denies any suicidal or homicidal ideation. Continue Cymbalta. DC mirtazapine as patient is becoming too sleepy. - Time Time Spent with patient: 25-34 minutes Anticipated Discharge Disposition: [facility] Anticipated Discharge Timeframe: when bed available
[2020-04-10] MEDS: DRONABINOL 2.5 MG CAPSULE PO SCH (15:34)
[2020-04-10] MEDS: TEMAZEPAM 15 MG CAPSULE PO PRN (21:18)
[2020-04-10] MEDS: ACETAMINOPHEN 325 MG TABLET PO PRN (21:18)
[2020-04-11] MEDS: INSULIN LISPRO 100 UNIT/ML 3 ML VIAL SUBCUT SCH ×4 (08:25→22:37)
[2020-04-11] MEDS: IPRATROPIUM/ALBUTEROL 0.5-2.5 MG/3 ML AMPUL NEB SCH ×2 (08:47→19:57)
[2020-04-11] MEDS: DULOXETINE HCL 20 MG CAPSULE.DR PO SCH ×2 (10:55→22:38)
[2020-04-11] MEDS: DRONABINOL 2.5 MG CAPSULE PO SCH (10:56)
[2020-04-11] MEDS: MIDODRINE HCL 5 MG TABLET PO SCH ×3 (10:56→18:38)
[2020-04-11] MEDS: MEGESTROL ACETATE 20 MG TABLET PO SCH (10:56)
[2020-04-11] MEDS: GUAIFENESIN 600 MG TABLET.SA PO SCH ×2 (10:56→22:37)
[2020-04-11] MEDS: SACUBITRIL/VALSARTAN 24 MG/26 MG TABLET PO SCH ×2 (10:56→22:38)
[2020-04-11] MEDS: CARVEDILOL 6.25 MG TABLET PO SCH ×2 (10:57→22:36)
[2020-04-11] MEDS: NICOTINE 14 MG/24 HR PATCH.TD24 TD SCH (11:05)
--- NOTE | 2020-04-11 13:00 | PDOC PROGRESS REPORT ---
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 04/05/2020. No acute events overnight. Saw patient this morning, enjoying his breakfast, stating that he could not get much sleep as he was anxious last night, denies any fever, chills, nausea, vomiting, chest pain. 04/06/2020. No acute events overnight. Saw patient this afternoon, resting in bed, no apparent distress, enjoying his supper, stating that he slept better last night but woke up feeling anxious this morning, still feeling very weak, endorsing very low appetite, denies any fever, chills, nausea, vomiting, denies any chest pain, pending transfer to SNF. 04/07/2020. No acute events overnight, complaining of nausea, generalized weakness, low appetite, stating that he slept better last night after taking temazepam, otherwise denies any fever, chills, chest pain, shortness of breath, abdominal pain or any urinary symptoms. 04/08/2020. No acute events overnight. Saw patient this morning, awake and alert, stating that he feels very tired and fatigued, appetite still remains poor, reporting improvement of his insomnia, denies any chest pain, fever, chills, nausea, vomiting. 04/09/2020. Patient was very sad and sleepy today, does not interact much, saying that he feels very weak, does not have much of an appetite, has any chest pain, shortness of breath, nausea, vomiting. Placement to SNF. 04/10/2020. No acute events noted. Saw patient this morning while enjoying his breakfast, still complaining of being very weak, nonambulatory due to extreme weakness, reporting very low appetite, stating that yesterday he had a good appetite after being given Marinol, otherwise denies any fever, chills, nausea, vomiting, diarrhea, constipation. 04/11/2019. No acute events overnight. Patient still appears very withdrawn and sad, alert and oriented, stating that he feels very weak, appetite is still very low, patient is still laying in bed in right lateral decubitus position, I have noted that he is developing swelling of the right upper extremity, asked him to keep changing his position he is stating that he will get headaches AP sleeps on the left lateral decubitus, denies any fever, chills, nausea, vomiting. Sleeping much improved. Reason For Visit: MARTHA,DEHYDRATION,FTT Physical Exam Vital Signs: Temp Pulse Resp BP Pulse Ox 97.9 F 78 18 88/46 L 96 04/10/20 23:32 04/11/20 08:47 04/11/20 08:47 04/10/20 23:32 04/11/20 08:47 Intake & Output 04/10/20 04/11/20 04/12/20 06:59 06:59 06:59 Intake Total 710 360 Output Total 0 Balance 710 360 Weight 54.2 kg General appearance: PRESENT: no acute distress, other - Very weak, withdrawn and sad. Head exam: PRESENT: atraumatic, normocephalic Respiratory exam: PRESENT: clear to auscultation khushboo. ABSENT: rales, rhonchi, wheezes Cardiovascular exam: PRESENT: RRR. ABSENT: diastolic murmur, rubs, systolic murmur GI/Abdominal exam: PRESENT: normal bowel sounds, soft. ABSENT: distended, guarding, mass, organolmegaly, rebound, tenderness Musculoskeletal exam: PRESENT: other - Right upper extremity swelling. Neurological exam: PRESENT: alert, awake, oriented to person, oriented to place, CN II-XII grossly intact. ABSENT: motor sensory deficit Skin exam: PRESENT: dry, intact, warm. ABSENT: cyanosis, rash Results Laboratory Results: 04/09/20 06:08 04/09/20 06:08 03/24/20 03/24/20 03/26/20 14:12 14:12 06:09 Creatine Kinase 59 Troponin I 0.124 NT-Pro-B Natriuret Pep [id number] H 115196 H 03/27/20 04:14 Creatine Kinase Troponin I NT-Pro-B Natriuret Pep [id number] H Impressions: Chest X-Ray 03/24/20 12:23 IMPRESSION: 1. New cardiomegaly. 2. Persistent right basilar infiltrate slightly improved from prior study. Renal Ultrasound 03/26/20 00:00 IMPRESSION: Unchanged bilateral renal cortical cysts and left renal atrophy. No hydronephrosis. Assessment and Plan - Diagnosis (1) NYHA class 4 heart failure with reduced ejection fraction Is this a current diagnosis for this admission?: Yes Plan: Cardiac medication managed by Dr. Castaneda. Please refer to note. Patient currently on midodrine, carvedilol, Entresto. Encourage p.o. fluids. Cardiac diet. Daily weights, strict I&O's. (2) Acute kidney injury Is this a current diagnosis for this admission?: Yes Plan: Acute on chronic kidney injury has now resolved. Creatinine and BUN at baseline. Continue to avoid nephrotoxic medications. Renally dose where appropriate. Monitor with periodic chemistries. (3) Dehydration Is this a current diagnosis for this admission?: Yes Plan: Resolved. His p.o. intake has improved. Encourage p.o. fluids. Daily weights, strict I&O's. (4) Pancytopenia Is this a current diagnosis for this admission?: Yes Plan: Improving. WBC WNL. Hemoglobin and platelets are stable. No evidence of active bleeding at this time. Anemia panel unremarkable Hematology was consulted; as pancytopenia is related to CHF and cirrhosis, and now improving, they have signed off. Outpatient PCP follow-up. (5) Physical deconditioning Is this a current diagnosis for this admission?: Yes Plan: Due to end-stage CHF. Continue PT OT. Encourage p.o. intake. Fall precautions. Pending SNF placement. (6) Protein-energy malnutrition Qualifiers: Protein-calorie malnutrition severity: moderate Qualified Code(s): E44.0 - Moderate protein-calorie malnutrition Is this a current diagnosis for this admission?: Yes Plan: BMI 20.2. Patient endorsing very low appetite only consuming 25-75 % of his meals. He also has a high energy expenditure related to his CHF. We will start on Megace. Registered dietitian is consulted. (7) Tobacco dependence Is this a current diagnosis for this admission?: Yes Plan: Smoking cessation encouraged. Nicotine replacement therapies provided. (8) UTI (urinary tract infection) Qualifiers: Urinary tract infection type: acute cystitis Hematuria presence: without hematuria Qualified Code(s): N30.00 - Acute cystitis without hematuria Is this a current diagnosis for this admission?: Yes Plan: Ruled out. Urinalysis positive for blood and leuk esterase. Urine culture revealed normal jessica. Received ceftriaxone x2 doses. (9) Depression Qualifiers: Depression Type: major depressive disorder Major depression episode severity: moderate Is this a current diagnosis for this admission?: Yes Plan: Denies any suicidal or homicidal ideation. Continue Cymbalta. DC mirtazapine as patient is becoming too sleepy. (10) Swelling of right upper extremity Is this a current diagnosis for this admission?: Yes Plan: This is likely due to IV extravasation and also the fact that patient prefers to sleep on right lateral decubitus position. I have asked him to keep switching his position he stated he cannot sleep on the left side as he gets headache.. On physical examination pulses are palpable, no sign of tenderness, erythema or sign of infection. We will switch IV access to the left side, encourage patient to elevate his arm. If no resolution will get venous Doppler to rule out DVT. - Time Time Spent with patient: 25-34 minutes Anticipated Discharge Disposition: [facility] Anticipated Discharge Timeframe: when bed available
[2020-04-11] MEDS: TEMAZEPAM 15 MG CAPSULE PO PRN (22:42)
[2020-04-12] MEDS: INSULIN LISPRO 100 UNIT/ML 3 ML VIAL SUBCUT SCH ×4 (07:49→22:42)
[2020-04-12] MEDS: IPRATROPIUM/ALBUTEROL 0.5-2.5 MG/3 ML AMPUL NEB SCH ×2 (08:14→20:19)
[2020-04-12] MEDS ORDERED: DRONABINOL 2.5 MG CAPSULE PO PRN (09:48)
[2020-04-12] MEDS: MEGESTROL ACETATE 20 MG TABLET PO SCH (10:49)
[2020-04-12] MEDS: DULOXETINE HCL 20 MG CAPSULE.DR PO SCH ×2 (10:49→22:31)
[2020-04-12] MEDS: CARVEDILOL 6.25 MG TABLET PO SCH ×2 (10:49→22:31)
[2020-04-12] MEDS: GUAIFENESIN 600 MG TABLET.SA PO SCH ×2 (10:49→22:31)
[2020-04-12] MEDS: SACUBITRIL/VALSARTAN 24 MG/26 MG TABLET PO SCH ×2 (10:49→22:31)
[2020-04-12] MEDS: NICOTINE 14 MG/24 HR PATCH.TD24 TD SCH (10:50)
[2020-04-12] MEDS: MIDODRINE HCL 5 MG TABLET PO SCH ×3 (10:52→19:33)
--- NOTE | 2020-04-12 11:10 | PDOC PROGRESS REPORT ---
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 04/05/2020. No acute events overnight. Saw patient this morning, enjoying his breakfast, stating that he could not get much sleep as he was anxious last night, denies any fever, chills, nausea, vomiting, chest pain. 04/06/2020. No acute events overnight. Saw patient this afternoon, resting in bed, no apparent distress, enjoying his supper, stating that he slept better last night but woke up feeling anxious this morning, still feeling very weak, endorsing very low appetite, denies any fever, chills, nausea, vomiting, denies any chest pain, pending transfer to SNF. 04/07/2020. No acute events overnight, complaining of nausea, generalized weakness, low appetite, stating that he slept better last night after taking temazepam, otherwise denies any fever, chills, chest pain, shortness of breath, abdominal pain or any urinary symptoms. 04/08/2020. No acute events overnight. Saw patient this morning, awake and alert, stating that he feels very tired and fatigued, appetite still remains poor, reporting improvement of his insomnia, denies any chest pain, fever, chills, nausea, vomiting. 04/09/2020. Patient was very sad and sleepy today, does not interact much, saying that he feels very weak, does not have much of an appetite, has any chest pain, shortness of breath, nausea, vomiting. Placement to SNF. 04/10/2020. No acute events noted. Saw patient this morning while enjoying his breakfast, still complaining of being very weak, nonambulatory due to extreme weakness, reporting very low appetite, stating that yesterday he had a good appetite after being given Marinol, otherwise denies any fever, chills, nausea, vomiting, diarrhea, constipation. 04/11/2019. No acute events overnight. Patient still appears very withdrawn and sad, alert and oriented, stating that he feels very weak, appetite is still very low, patient is still laying in bed in right lateral decubitus position, I have noted that he is developing swelling of the right upper extremity, asked him to keep changing his position he is stating that he will get headaches AP sleeps on the left lateral decubitus, denies any fever, chills, nausea, vomiting. Sleeping much improved. 04/12/2020. No acute events overnight, still complaining of severe weakness, appetite has not improved much, denies any fever, chills, nausea, vomiting or shortness of breath. Pending transfer to SNF. Reason For Visit: MARTHA,DEHYDRATION,FTT Physical Exam Vital Signs: Temp Pulse Resp BP Pulse Ox 97.4 F 92 18 147/86 H 85 L 04/12/20 07:45 04/12/20 08:14 04/12/20 08:14 04/12/20 07:45 04/12/20 08:14 Intake & Output 04/11/20 04/12/20 04/13/20 06:59 06:59 06:59 Intake Total 360 860 Output Total 0 Balance 360 860 Weight 54.2 kg General appearance: PRESENT: no acute distress, well-developed, well-nourished, other - Appears very weak. Head exam: PRESENT: atraumatic, normocephalic Respiratory exam: PRESENT: clear to auscultation khushboo. ABSENT: rales, rhonchi, wheezes Cardiovascular exam: PRESENT: RRR. ABSENT: diastolic murmur, rubs, systolic murmur GI/Abdominal exam: PRESENT: normal bowel sounds, soft. ABSENT: distended, guarding, mass, organolmegaly, rebound, tenderness Extremities exam: PRESENT: other - Right upper extremity swelling. Neurological exam: PRESENT: alert, awake, oriented to person, oriented to place, CN II-XII grossly intact. ABSENT: motor sensory deficit Results Laboratory Results: 04/09/20 06:08 04/09/20 06:08 03/24/20 03/24/20 03/26/20 14:12 14:12 06:09 Creatine Kinase 59 Troponin I 0.124 NT-Pro-B Natriuret Pep [id number] H [id number] H 03/27/20 04:14 Creatine Kinase Troponin I NT-Pro-B Natriuret Pep [id number] H Impressions: Chest X-Ray 03/24/20 12:23 IMPRESSION: 1. New cardiomegaly. 2. Persistent right basilar infiltrate slightly improved from prior study. Renal Ultrasound 03/26/20 00:00 IMPRESSION: Unchanged bilateral renal cortical cysts and left renal atrophy. No hydronephrosis. Assessment and Plan - Diagnosis (1) NYHA class 4 heart failure with reduced ejection fraction Is this a current diagnosis for this admission?: Yes Plan: Cardiac medication managed by Dr. Castaneda. Please refer to note. Patient currently on midodrine, carvedilol, Entresto. Encourage p.o. fluids. Cardiac diet. Daily weights, strict I&O's. (2) Acute kidney injury Is this a current diagnosis for this admission?: Yes Plan: Acute on chronic kidney injury has now resolved. Creatinine and BUN at baseline. Continue to avoid nephrotoxic medications. Renally dose where appropriate. Monitor with periodic chemistries. (3) Dehydration Is this a current diagnosis for this admission?: Yes Plan: Resolved. His p.o. intake has improved. Encourage p.o. fluids. Daily weights, strict I&O's. (4) Pancytopenia Is this a current diagnosis for this admission?: Yes Plan: Improving. WBC WNL. Hemoglobin and platelets are stable. No evidence of active bleeding at this time. Anemia panel unremarkable Hematology was consulted; as pancytopenia is related to CHF and cirrhosis, and now improving, they have signed off. Outpatient PCP follow-up. (5) Physical deconditioning Is this a current diagnosis for this admission?: Yes Plan: Due to end-stage CHF. Continue PT OT. Encourage p.o. intake. Fall precautions. Pending SNF placement. (6) Protein-energy malnutrition Qualifiers: Protein-calorie malnutrition severity: moderate Qualified Code(s): E44.0 - Moderate protein-calorie malnutrition Is this a current diagnosis for this admission?: Yes Plan: BMI 20.2. Patient endorsing very low appetite only consuming 25-75 % of his meals. He also has a high energy expenditure related to his CHF. We will start on Megace. Registered dietitian is consulted. (7) Tobacco dependence Is this a current diagnosis for this admission?: Yes Plan: Smoking cessation encouraged. Nicotine replacement therapies provided. (8) UTI (urinary tract infection) Qualifiers: Urinary tract infection type: acute cystitis Hematuria presence: without hematuria Qualified Code(s): N30.00 - Acute cystitis without hematuria Is this a current diagnosis for this admission?: Yes Plan: Ruled out. Urinalysis positive for blood and leuk esterase. Urine culture revealed normal jessica. Received ceftriaxone x2 doses. (9) Depression Qualifiers: Depression Type: major depressive disorder Major depression episode severity: moderate Is this a current diagnosis for this admission?: Yes Plan: Denies any suicidal or homicidal ideation. Continue Cymbalta. DC mirtazapine as patient is becoming too sleepy. (10) Swelling of right upper extremity Is this a current diagnosis for this admission?: Yes Plan: This is likely due to IV extravasation and also the fact that patient prefers to sleep on right lateral decubitus position. I have asked him to keep switching his position he stated he cannot sleep on the left side as he gets headache.. On physical examination pulses are palpable, no sign of tenderness, erythema or sign of infection. We will switch IV access to the left side, encourage patient to elevate his arm. If no resolution will get venous Doppler to rule out DVT. - Time Time Spent with patient: 25-34 minutes Medications reviewed and adjusted accordingly: Yes Anticipated Discharge Disposition: [facility] Anticipated Discharge Timeframe: when bed available
[2020-04-12] MEDS: TEMAZEPAM 15 MG CAPSULE PO PRN (22:40)
[2020-04-13] MEDS: IPRATROPIUM/ALBUTEROL 0.5-2.5 MG/3 ML AMPUL NEB SCH ×2 (08:00→20:24)
[2020-04-13] MEDS: INSULIN LISPRO 100 UNIT/ML 3 ML VIAL SUBCUT SCH ×4 (08:32→21:52)
[2020-04-13] MEDS: GUAIFENESIN 600 MG TABLET.SA PO SCH ×2 (11:05→22:14)
[2020-04-13] MEDS: CARVEDILOL 6.25 MG TABLET PO SCH ×2 (11:05→22:14)
[2020-04-13] MEDS: MIDODRINE HCL 5 MG TABLET PO SCH ×3 (11:05→17:20)
[2020-04-13] MEDS: MEGESTROL ACETATE 20 MG TABLET PO SCH (11:06)
[2020-04-13] MEDS: DULOXETINE HCL 20 MG CAPSULE.DR PO SCH ×2 (11:06→22:14)
[2020-04-13] MEDS: NICOTINE 14 MG/24 HR PATCH.TD24 TD SCH (11:06)
[2020-04-13] MEDS: SACUBITRIL/VALSARTAN 24 MG/26 MG TABLET PO SCH ×2 (11:06→22:14)
--- NOTE | 2020-04-13 15:35 | PDOC TRANSFER SUMMARY ---
Impression - Admit/DC Date/PCP Admission Date/Primary Care Provider: 03/24/20 16:[facility] Discharge Date: 04/13/20 - Discharge Diagnosis (1) NYHA class 4 heart failure with reduced ejection fraction Is this a current diagnosis for this admission?: Yes (2) Pancytopenia Is this a current diagnosis for this admission?: Yes (3) Physical deconditioning Is this a current diagnosis for this admission?: Yes (4) Tobacco dependence Is this a current diagnosis for this admission?: Yes (5) Protein-energy malnutrition Is this a current diagnosis for this admission?: Yes (6) Dehydration Is this a current diagnosis for this admission?: Yes (7) Acute kidney injury Is this a current diagnosis for this admission?: Yes (8) UTI (urinary tract infection) Is this a current diagnosis for this admission?: Yes - Additional Information Discharge Diet: Cardiac, Diabetic Discharge Activity: Activity As Tolerated, Balance Activity w/Rest, Weigh Daily Referrals: BERONICA SÁNCHEZ MD [NO LOCAL MD] - Follow up as needed Home Medications: Acetaminophen [Tylenol 325 mg Tablet] 650 mg PO Q4HP PRN tablet 04/13/20 Carvedilol [Coreg 6.25 mg Tablet] 6.25 mg PO Q12 tablet 04/13/20 Duloxetine HCl [Cymbalta 20 mg Capsule.] 20 mg PO Q12 capsule. 04/13/20 Ipratropium/Albuterol Sulfate [Duoneb 3 ml Ampul] 3 ml NEB RTQ12 vial.neb 04/13/20 Levalbuterol HCl [Xopenex Neb 1.25 mg/3 ml Ampul] 1.25 mg NEB RTQ6HP PRN vial.neb 04/13/20 Megestrol Acetate [Megace 20 mg Tablet] 20 mg PO DAILY tablet 04/13/20 Midodrine HCl [Proamatine 5 mg Tablet] 10 mg PO TID tablet 04/13/20 Nicotine [Nicoderm 14 mg/24 Hr Transdermal Patch] 1 each TD DAILY patch.td24 04/13/20 Sacubitril/Valsartan [Entresto 24 mg/26 mg Tablet] 1 tab PO Q12 tablet 04/13/20 Temazepam [Restoril 15 mg Capsule] 15 mg PO HSP PRN capsule 04/13/20 History of Present Illiness History of Present Illness: Per H&P by Dr. 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 He was recently diagnosed with gastric ulcer and was placed on twice a day proton pump inhibitor plus Carafate. He lives at home alone. He was found today by the home health nurse. He was covered in his own urine and feces, and has some excoriation to the right hip, right buttocks, and perianal area. He said he has been too weak to get out of bed for the past 3 days. He has had very little to eat or drink during that time. His vital signs have been stable. He has not had any fever, chest pain, or shortness of breath. No abdominal pain. No dysuria. He does not know who his doctor is but he [facility] He does not know the name of all of his medications. He does not know all of his health problems. What is listed above was learned from the electronic medical record here. He was found with very low platelets on his CBC. His hemoglobin was in the normal range. His stool was guaiac positive, but his stool was brown, leading us to think that his thrombocytopenia and his diarrhea over the past few days is what likely made his stool guaiac positive. His BUN was substantially elevated. His creatinine was elevated substantially above baseline. Troponin was checked but it was equivocal. BNP was also substantially elevated and he got a dose of Bumex in the ER, but he is in no way fluid overloaded, and in fact quite the opposite. Hospital Course Hospital Course: (1) NYHA class 4 heart failure with reduced ejection fraction Cardiology was consulted; cardiac medication managed by Dr. Castaneda. Patient currently on midodrine, carvedilol, Entresto. Cardiac diet. Daily weights. Outpatient follow up. (2) Acute kidney injury Acute on chronic kidney injury has now resolved. Creatinine and BUN at baseline. Continue to avoid nephrotoxic medications. Renally dose where appropriate. Monitor with periodic chemistries. (3) Dehydration Resolved. His p.o. intake has improved. Encourage p.o. fluids. Daily weights, strict I&O's. (4) Pancytopenia Improving. Hemoglobin and platelets are stable. No evidence of active bleeding at this time. Anemia panel unremarkable Hematology was consulted; as pancytopenia is related to CHF and cirrhosis, and now improving, they have signed off. Outpatient PCP follow-up. (5) Physical deconditioning Due to end-stage CHF. Continue PT OT. Encourage p.o. intake. Fall precautions. SNF placement. (6) Protein-energy malnutrition BMI 19.9. Patient endorsing very low appetite only consuming 25-75 % of his meals. He also has a high energy expenditure related to his CHF. Continue on Megace. Registered dietitian was consulted. (7) Tobacco dependence Smoking cessation encouraged. Nicotine replacement therapies provided. (8) UTI (urinary tract infection) Ruled out. Urinalysis positive for blood and leuk esterase. Urine culture revealed normal jessica. Received ceftriaxone x2 doses. (9) Depression Denies any suicidal or homicidal ideation. Continue Cymbalta. DC mirtazapine as patient became too sleepy. (10) Swelling of right upper extremity Improved; minimal right upper extremity edema today. This is likely due to IV extravasation and also the fact that patient prefers to sleep on right lateral decubitus position. On physical examination pulses are palpable, no sign of tenderness, erythema or sign of infection. Continue elevation, increase mobility, nonpharmacological interventions for discomfort. Physical Exam Vital Signs: Temp Pulse Resp BP Pulse Ox 98.0 F 95 24 H 113/63 93 04/13/20 10:00 04/13/20 08:46 04/13/20 08:46 04/13/20 08:46 04/13/20 08:46 Intake & Output 04/12/20 04/13/20 04/14/20 06:59 06:59 06:59 Intake Total 860 1408 Balance 860 1408 Weight 54.2 kg 54.2 kg 54.2 kg General appearance: PRESENT: no acute distress, cooperative, thin, well- developed, other - Frail, chronically ill-appearing Head exam: PRESENT: atraumatic, normocephalic Eye exam: PRESENT: conjunctiva pink, EOMI, PERRLA. ABSENT: scleral icterus Mouth exam: PRESENT: moist, tongue midline Neck exam: ABSENT: carotid bruit, JVD, lymphadenopathy, thyromegaly Respiratory exam: PRESENT: clear to auscultation khushboo, symmetrical, unlabored, other - Supplemental oxygen via nasal cannula at 3 L/min. ABSENT: rales, rhonchi, wheezes Cardiovascular exam: PRESENT: RRR, +S1, +S2. ABSENT: diastolic murmur, rubs, systolic murmur Pulses: PRESENT: normal dorsalis pedis pul Vascular exam: PRESENT: normal capillary refill Rectal exam: PRESENT: deferred Extremities exam: PRESENT: full ROM. ABSENT: calf tenderness, clubbing, pedal edema Neurological exam: PRESENT: alert, awake, oriented to person, oriented to place, oriented to time, oriented to situation, CN II-XII grossly intact. ABSENT: motor sensory deficit Psychiatric exam: PRESENT: flat affect, normal mood. ABSENT: homicidal ideation, suicidal ideation Skin exam: PRESENT: dry, intact, warm. ABSENT: cyanosis, rash Results Laboratory Results: WBC 3.7 10^3/uL (4.0-10.5) L 04/09/20 06:08 RBC 2.88 10^6/uL (4.35-5.55) L 04/09/20 06:08 Hgb 10.4 g/dL (13.5-17.0) L 04/09/20 06:08 Hct 30.5 % (37.9-51.0) L 04/09/20 06:08 MCV 106 fl (80-97) H 04/09/20 06:08 MCH 36.1 pg (27.0-33.4) H 04/09/20 06:08 MCHC 34.0 g/dL (32.0-36.0) 04/09/20 06:08 RDW 22.1 % (11.5-14.0) H 04/09/20 06:08 Plt Count 74 10^3/uL (150-450) L 04/09/20 06:08 Lymph % (Auto) 11.2 % (13-45) L 04/09/20 06:08 [place] % (Auto) 4.7 % (3-13) 04/09/20 06:08 Eos % (Auto) 2.1 % (0-6) 04/09/20 06:08 Baso % (Auto) 0.2 % (0-2) 04/09/20 06:08 Reticulocyte # 0.054 10^6/uL (0.028-0.122) 03/30/20 06:10 Absolute Neuts (auto) 3.0 10^3/uL (1.7-8.2) 04/09/20 06:08 Absolute Lymphs (auto) 0.4 10^3/uL (0.5-4.7) L 04/09/20 06:08 Absolute Monos (auto) 0.2 10^3/uL (0.1-1.4) 04/09/20 06:08 Absolute Eos (auto) 0.1 10^3/uL (0.0-0.6) 04/09/20 06:08 Absolute Basos (auto) 0.0 10^3/uL (0.0-0.2) 04/09/20 06:08 Total Counted 50 03/29/20 03:55 Seg Neutrophils % 81.8 % (42-78) H 04/09/20 06:08 Seg Neuts % (Manual) 70 % (42-78) 03/29/20 03:55 Band Neutrophils % 2 % (3-5) L 03/29/20 03:55 Lymphocytes % (Manual) 22 % (13-45) 03/29/20 03:55 Monocytes % (Manual) 2 % (3-13) L 03/29/20 03:55 Eosinophils % (Manual) 4 % (0-6) 03/29/20 03:55 Basophils % (Manual) 0 % (0-2) 03/29/20 03:55 Abs Neuts (Manual) 0.9 10^3/uL (1.7-8.2) L 03/29/20 03:55 Abs Lymphs (Manual) 0.3 10^3/uL (0.5-4.7) L 03/29/20 03:55 Abs Monocytes (Manual) 0.0 10^3/uL (0.1-1.4) L 03/29/20 03:55 Absolute Eos (Manual) 0.1 10^3/uL (0.0-0.6) 03/29/20 03:55 Abs Basophils (Manual) 0.0 10^3/uL (0.0-0.2) 03/29/20 03:55 Platelet Estimate Cancelled 03/24/20 14:12 Platelet Comment DECREASED 03/29/20 03:55 Polychromasia 1+ 03/29/20 03:55 Hypochromasia 1+ 03/29/20 03:55 Poikilocytosis 1+ 03/29/20 03:55 Anisocytosis 3+ 03/29/20 03:55 Macrocytosis 1+ 03/29/20 03:55 Ovalocytes 1+ 03/28/20 07:19 Pearl-Electra Bodies PRESENT 03/24/20 15:40 Mickey Cells 1+ 03/29/20 03:55 Retic Count (auto) 1.87 % (0.66-2.85) 03/30/20 06:10 PT 24.9 SEC (11.4-15.4) H 03/24/20 14:12 INR 2.25 03/24/20 14:12 Sodium 136.6 mmol/L (137-145) L 04/09/20 06:08 Potassium 5.2 mmol/L (3.6-5.0) H 04/09/20 06:08 Chloride 107 mmol/L (98-107) 04/09/20 06:08 Carbon Dioxide 24 mmol/L (22-30) 04/09/20 06:08 Anion Gap 6 (5-19) 04/09/20 06:08 BUN 87 mg/dL (7-20) H 04/09/20 06:08 Creatinine 1.39 mg/dL (0.52-1.25) H 04/09/20 06:08 Est GFR ( Amer) > 60 (>60) 04/09/20 06:08 Est GFR (Non-Af Amer) Cancelled 03/25/20 06:49 Est GFR (MDRD) Non-Af 51 (>60) L 04/09/20 06:08 Glucose 58 mg/dL (75-110) L 04/09/20 06:08 POC Glucose 152 mg/dL (70-110) H 04/13/20 14:58 Calcium 9.4 mg/dL (8.4-10.2) 04/09/20 06:08 Magnesium 2.1 mg/dL (1.6-2.3) 04/07/20 04:42 Iron 53.2 ug/dL (49-181) 03/30/20 06:10 TIBC 242 ug/dL (250-450) L 03/30/20 06:10 % Saturation 22 % 03/30/20 06:10 Ferritin 424.00 ng/mL (17.9-464.0) 03/30/20 06:10 Total Bilirubin 1.9 mg/dL (0.2-1.3) H 03/27/20 04:14 Direct Bilirubin 1.3 mg/dL (0.0-0.4) H 03/27/20 04:14 Neonat Total Bilirubin Not Reportable 03/27/20 04:14 Neonat Direct Bilirubin Not Reportable 03/27/20 04:14 Neonat Indirect Bili Not Reportable 03/27/20 04:14 AST 48 U/L (17-59) 03/27/20 04:14 ALT 66 U/L (<50) H 03/27/20 04:14 Alkaline Phosphatase 159 U/L (38-126) H 03/27/20 04:14 Creatine Kinase 59 U/L (55-170) 03/24/20 14:12 Troponin I 0.124 ng/mL 03/24/20 14:12 NT-Pro-B Natriuret Pep [id number] pg/mL (<125) H 03/27/20 04:14 Total Protein 5.6 g/dL (6.3-8.2) L 03/27/20 04:14 Albumin 2.7 g/dL (3.5-5.0) L 03/27/20 04:14 EGFR Cancelled 03/25/20 06:49 Vitamin B12 908.0 pg/mL (239-931) 03/30/20 06:10 Folate > 20.00 ng/mL (>2.76) 03/30/20 06:10 Urine Color DARK YELLOW 03/24/20 12:38 Urine Appearance SLIGHTLY-CLOUDY 03/24/20 12:38 Urine pH 5.0 (5.0-9.0) 03/24/20 12:38 Ur Specific [place] 1.019 03/24/20 12:38 Urine Protein 30 mg/dL (NEGATIVE) H 03/24/20 12:38 Urine Glucose (UA) NEGATIVE mg/dL (NEGATIVE) 03/24/20 12:38 Urine Ketones NEGATIVE mg/dL (NEGATIVE) 03/24/20 12:38 Urine Blood SMALL (NEGATIVE) H 03/24/20 12:38 Urine Nitrite NEGATIVE (NEGATIVE) 03/24/20 12:38 Urine Bilirubin NEGATIVE (NEGATIVE) 03/24/20 12:38 Urine Urobilinogen NEGATIVE mg/dL (<2.0) 03/24/20 12:38 Ur Leukocyte Esterase LARGE (NEGATIVE) H 03/24/20 12:38 Urine WBC (Auto) 79 /HPF 03/24/20 12:38 Urine RBC (Auto) 14 /HPF 03/24/20 12:38 U Hyaline Cast (Auto) 10 /LPF 03/24/20 12:38 Urine Bacteria (Auto) TRACE /HPF 03/24/20 12:38 Squamous Epi Cells Auto 1 /HPF 03/24/20 12:38 Urine Mucus (Auto) RARE /LPF 03/24/20 12:38 Urine Creatinine 30.1 mg/dL (22-328) 03/25/20 17:20 Urine Sodium 90 mmol/L (30-90) 03/25/20 17:20 Urine Ascorbic Acid NEGATIVE (NEGATIVE) 03/24/20 12:38 Stl C. Difficile GDH Ag NEGATIVE (NEGATIVE) 03/24/20 12:38 Stl C.difficile Tox A&B NEGATIVE (NEGATIVE) 03/24/20 12:38 COVID-19 Source See comment 04/03/20 16:15 COVID-19 (JONH) Not Detected (Not Detect) 04/03/20 16:15 Influenza A (RT-PCR) NEGATIVE (NEGATIVE) 03/30/20 07:30 Influenza B (RT-PCR) NEGATIVE (NEGATIVE) 03/30/20 07:30 RSV (RT-PCR) NEGATIVE (NEGATIVE) 03/30/20 07:30 SARS-CoV-2 Rap RNA(RT-PCR) NEGATIVE (NEGATIVE) 03/30/20 07:30 Slides for Path Review PATHOLOGIST REVIEWED 03/28/20 07:19 03/24/20 03/26/20 03/27/20 14:12 06:09 04:14 Troponin I 0.124 NT-Pro-B Natriuret Pep [id number] H [id number] H [id number] H Impressions: Chest X-Ray 03/24/20 12:23 IMPRESSION: 1. New cardiomegaly. 2. Persistent right basilar infiltrate slightly improved from prior study. Renal Ultrasound 03/26/20 00:00 IMPRESSION: Unchanged bilateral renal cortical cysts and left renal atrophy. No hydronephrosis. Plan Plan of Treatment: Patient is discharged to SNF. He should follow-up with his primary care provider within 1 week. Follow-up with his established tube bending machine operator, Dr. Castaneda, within 2 to 4 weeks. Continue medications as prescribed. Eat a cardiac diet. Check weights daily. Return to emergency department, as needed, for concerning symptoms. Time Spent: Greater than 30 Minutes Stroke Is this a Stroke Patient?: No Acute Heart Failure Is this a Heart Failure Patient?: Yes Documentation of LVEF assessment?: Yes LVEF: LVEF Less Than or Equal to 35% Anticoagulant Therapy: N/A Discharged on Evidence-Based Beta Blockers: Yes Discharged on ARNI?: Yes Discharged on ARB?: N/A-Discharged on ARNI Discharged on ACEI?: N/A Discharged on ARNI For LVEF <35%, discharged on Aldosterone Antagonist?: No-document contraincations Reason(s) not discharged on Aldosterone Antagonist: Hyperkalemia Follow-up Appointment scheduled within 7 days?: Yes
[2020-04-14] MEDS: ONDANSETRON HCL INJ/PF 4 MG/2 ML SDV IV PRN (03:28)
[2020-04-14] MEDS: INSULIN LISPRO 100 UNIT/ML 3 ML VIAL SUBCUT SCH ×3 (08:20→15:39)
[2020-04-14] MEDS: IPRATROPIUM/ALBUTEROL 0.5-2.5 MG/3 ML AMPUL NEB SCH (08:37)
[2020-04-14] MEDS: GUAIFENESIN 600 MG TABLET.SA PO SCH (09:53)
[2020-04-14] MEDS: CARVEDILOL 6.25 MG TABLET PO SCH (09:53)
[2020-04-14] MEDS: NICOTINE 14 MG/24 HR PATCH.TD24 TD SCH (09:54)
[2020-04-14] MEDS: MIDODRINE HCL 5 MG TABLET PO SCH ×2 (09:54→15:38)
[2020-04-14] MEDS: MEGESTROL ACETATE 20 MG TABLET PO SCH (09:55)
[2020-04-14] MEDS: SACUBITRIL/VALSARTAN 24 MG/26 MG TABLET PO SCH (09:55)
[2020-04-14] MEDS: DULOXETINE HCL 20 MG CAPSULE.DR PO SCH (09:55)
[2020-04-14 16:15] VITALS: BP 110/53
--- NOTE | 2020-04-14 18:48 | PDOC PROGRESS REPORT ---
Subjective Date:: 04/14/20 Subjective:: LORIE OLIVIA is a 69 year old male with PMH of COPD, CAD, HTN, HLD, DM2, PAD s/p recent left femoropopliteal bypass, tobacco abuse, dilated cardiomyopathy and ischemic cardiomyopathy with severely reduced LV ejection fraction complicated by RV failure, cardiorenal syndrome and cardiac cirrhosis resulting in pancytopenia, recent dx of gastric ulcer, and history of squamous cell cancer to the face who was admitted 03/24/20 for MARTHA and dehydration. Patient was seen on morning rounds. He is found resting in bed, comfortably, on supplemental oxygen via NC. He is A&Ox4, though remains at his baseline, intermittently, forgetful and mildly confused. Feels well today; does report fatigue. He denies fever, chills, chest pain, palpitations, dyspnea, cough, abdominal pain, nausea and vomiting. He has no questions or concerns at this time. No concerns per nursing. Reason For Visit: MARTHA,DEHYDRATION,FTT Physical Exam Vital Signs: Temp Pulse Resp BP Pulse Ox 97.6 F 94 16 110/53 L 92 04/14/20 15:28 04/14/20 15:28 04/14/20 15:28 04/14/20 15:28 04/14/20 15:28 Intake & Output 04/13/20 04/14/20 04/15/20 06:59 06:59 06:59 Intake Total 1408 1012 120 Balance 1408 1012 120 Weight 54.2 kg 54.2 kg General appearance: PRESENT: no acute distress, thin, well-developed, other - Frail, chronically ill-appearing Head exam: PRESENT: atraumatic, normocephalic Eye exam: PRESENT: conjunctiva pink, EOMI, PERRLA. ABSENT: scleral icterus Mouth exam: PRESENT: moist, tongue midline Respiratory exam: PRESENT: clear to auscultation khushboo, symmetrical, unlabored, other - Supplemental oxygen by nasal cannula. ABSENT: rales, rhonchi, wheezes Cardiovascular exam: PRESENT: RRR. ABSENT: diastolic murmur, rubs, systolic murmur Pulses: PRESENT: normal dorsalis pedis pul Vascular exam: PRESENT: normal capillary refill Extremities exam: PRESENT: full ROM, pedal edema - Trace. ABSENT: calf tenderness, clubbing Neurological exam: PRESENT: alert, awake, oriented to person, oriented to place, oriented to time, oriented to situation, CN II-XII grossly intact. ABSENT: motor sensory deficit Psychiatric exam: PRESENT: flat affect, normal mood. ABSENT: homicidal ideation, suicidal ideation Skin exam: PRESENT: dry, intact, warm. ABSENT: cyanosis, rash Results Laboratory Results: 04/09/20 06:08 04/09/20 06:08 03/24/20 03/24/20 03/26/20 14:12 14:12 06:09 Creatine Kinase 59 Troponin I 0.124 NT-Pro-B Natriuret Pep [id number] H [id number] H 03/27/20 04:14 Creatine Kinase Troponin I NT-Pro-B Natriuret Pep [id number] H Impressions: Chest X-Ray 03/24/20 12:23 IMPRESSION: 1. New cardiomegaly. 2. Persistent right basilar infiltrate slightly improved from prior study. Renal Ultrasound 03/26/20 00:00 IMPRESSION: Unchanged bilateral renal cortical cysts and left renal atrophy. No hydronephrosis. Assessment and Plan - Diagnosis (1) NYHA class 4 heart failure with reduced ejection fraction Is this a current diagnosis for this admission?: Yes (2) Pancytopenia Is this a current diagnosis for this admission?: Yes (3) Physical deconditioning Is this a current diagnosis for this admission?: Yes (4) Tobacco dependence Is this a current diagnosis for this admission?: Yes (5) Protein-energy malnutrition Qualifiers: Protein-calorie malnutrition severity: moderate Qualified Code(s): E44.0 - Moderate protein-calorie malnutrition Is this a current diagnosis for this admission?: Yes (6) Dehydration Is this a current diagnosis for this admission?: Yes (7) Acute kidney injury Is this a current diagnosis for this admission?: Yes (8) UTI (urinary tract infection) Qualifiers: Urinary tract infection type: acute cystitis Hematuria presence: without hematuria Qualified Code(s): N30.00 - Acute cystitis without hematuria Is this a current diagnosis for this admission?: Yes - Plan Summary Summary: Patient is discharged to SNF today. There was a delay in his transfer due to transportation and bed availability. (1) NYHA class 4 heart failure with reduced ejection fraction Cardiology was consulted; cardiac medication managed by Dr. Castaneda. Patient currently on midodrine, carvedilol, Entresto. Cardiac diet. Daily weights. Outpatient follow up. (2) Acute kidney injury Acute on chronic kidney injury has now resolved. Creatinine and BUN at baseline. Continue to avoid nephrotoxic medications. Renally dose where appropriate. Monitor with periodic chemistries. (3) Dehydration Resolved. His p.o. intake has improved. Encourage p.o. fluids. (4) Pancytopenia Improving. Hemoglobin and platelets are stable. No evidence of active bleeding at this time. Anemia panel unremarkable Hematology was consulted; as pancytopenia is related to CHF and cirrhosis, and now improving, they have signed off. Outpatient PCP follow-up. (5) Physical deconditioning Due to end-stage CHF. Continue PT OT. Encourage p.o. intake. Fall precautions. SNF placement. (6) Protein-energy malnutrition BMI 19.9. Patient endorsing very low appetite only consuming 25-75 % of his meals. He also has a high energy expenditure related to his CHF. Continue on Megace. (7) Tobacco dependence Smoking cessation encouraged. Nicotine replacement therapies provided. (8) UTI (urinary tract infection) Ruled out. Urinalysis positive for blood and leuk esterase. Urine culture revealed normal jessica. Received ceftriaxone x2 doses. (9) Depression Denies any suicidal or homicidal ideation. Continue Cymbalta. (10) Swelling of right upper extremity Resolved. - Time Time Spent with patient: 15-24 minutes Medications reviewed and adjusted accordingly: Yes Anticipated Discharge Disposition: Longterm Facility Anticipated Discharge Timeframe: Today
== END 2020-04-14 16:30 | disposition short-term general hospital (02) | DRG 683 ==
LOC: ER 12:08 → EH 16:48 → 5 20:24 → 4S 03-31 20:00
PROVIDERS: ADMIT Family Medicine; ATTEND Registered Nurse
DX: N17.9 Acute kidney failure, unspecified (principal); D61.818 Other pancytopenia; I42.0 Dilated cardiomyopathy; Z68.1 Body mass index [BMI] 19.9 or less, adult; N30.00 Acute cystitis without hematuria; I13.0 Hypertensive heart and chronic kidney disease with heart failure and stage 1 through stage 4 chronic kidney disease, or unspecified chronic kidney disease; G93.40 Encephalopathy, unspecified; E44.0 Moderate protein-calorie malnutrition; E86.0 Dehydration; R62.7 Adult failure to thrive; Z20.822 Contact with and (suspected) exposure to COVID-19; N18.4 Chronic kidney disease, stage 4 (severe); I25.10 Atherosclerotic heart disease of native coronary artery without angina pectoris; E78.5 Hyperlipidemia, unspecified; E11.51 Type 2 diabetes mellitus with diabetic peripheral angiopathy without gangrene; F32.9 Major depressive disorder, single episode, unspecified; I25.5 Ischemic cardiomyopathy; K21.9 Gastro-esophageal reflux disease without esophagitis; Z60.2 Problems related to living alone; I27.22 Pulmonary hypertension due to left heart disease; E03.9 Hypothyroidism, unspecified; I50.814 Right heart failure due to left heart failure; E11.22 Type 2 diabetes mellitus with diabetic chronic kidney disease; J41.0 Simple chronic bronchitis; K26.9 Duodenal ulcer, unspecified as acute or chronic, without hemorrhage or perforation; R74.01 Elevation of levels of liver transaminase levels; K76.1 Chronic passive congestion of liver; F17.210 Nicotine dependence, cigarettes, uncomplicated; I25.2 Old myocardial infarction; Z85.828 Personal history of other malignant neoplasm of skin; Z79.899 Other long term (current) drug therapy; Z95.1 Presence of aortocoronary bypass graft; Z95.0 Presence of cardiac pacemaker; Z87.11 Personal history of peptic ulcer disease; Z95.810 Presence of automatic (implantable) cardiac defibrillator; Z85.818 Personal history of malignant neoplasm of other sites of lip, oral cavity, and pharynx
CPT/HCPCS: 36415; 71045; 76770; 80048; 80053; 81001; 82550; 82570; 82607; 82728; 82746; 82962; 83540; 83550; 83735; 83880; 84300; 84484; 85025; 85027; 85045; 85610; 87040; 87086; 87324; 87449; 87635; 93005; 93010; 94640; 94667; 94799; 96374; 96375; 99285; 0241U; A9270-GY; C9113; C9803; J0696; J1815; J2405; J3490; J7030; J7512; J7614; S0028